=== PATIENT | female | born 1975 | race Caucasian/White ===

== ENCOUNTER 2020-05-30 14:58 | Emergency (ER) | payer MEDICARE, MEDICAID ==
[~2020-05-30] VITALS: Ht 172 cm; Wt 9.7 kg
[~2020-05-30 14:58] MED LIST: ACHD5005 PO; ALPR.25T PO; ALPR.5T PO; ALPR0.25 PO; ALPR0.5T72 PO; ARIP15TA9 PO; ASP325TEC PO; ASP81CT PO; ASPI-1238 PO; ATN25T; ATOR40TA PO; ATOR40TA70 PO; ATOR80TA76 PO; CLON1TAB36 PO; CLOP75TA PO; CLOP75TA28 PO; CLPD75T; DILT120C85 PO; DULO30CA PO; ENLP10T PO; ESCT10T; FAMO20TA5 PO; FAMO20TA73 PO; FAMO40TA39 PO; HYDR-3857 PO; HYDR-700 PO; HYDR1CAP2 PO; HYDR1TAB66 PO; IBUP-15 PO; IBUP-30 PO; IPRA4AER IH; ISOS30TA3 PO; LVT.025T PO; LVT.15T PO; LVT.1T PO; METF-397 PO; METO-333 PO; METO25TA2 PO; MTF500T PO; NITR0.3T6 SL; OMEP-10 PO; PGLT30T PO; PRD10T PO; QUET25TA PO; RESTORIL; SERT100T8 PO; SERT25TA PO; SIMV40TA2 PO; TICA90TA PO; TMZP15C; VALA500T4 PO; VALP250C PO; VALP250S14 PO; VLP250480 PO; WARF6TAB PO; WRF5T PO; ZLP10T PO; ZOLP12.5 PO; ZOLP5TAB7 PO; ZOLP6.252 PO
[2020-05-30] MEDS ORDERED: NS IV 1000 ML 1,000 ML ONE (15:14)
[2020-05-30] MEDS ORDERED: ASPIRIN 81 MG CHEW (CHILDREN'S ASA) PO ONE (15:15)
--- NOTE | 2020-05-30 15:17 | ED Chest Pain ---
General Chief Complaint: Chest Pain Stated Complaint: CHEST PAIN Nursing Triage Note: having chest pain that is similar to an [place] she had in 2019 Nursing Sepsis Screen: No Definite Risk Source: patient Exam Limitations: no limitations (MARGARET HUANG) History of Present Illness Date Seen by Provider: May 30, 2020 Time Seen by Provider: 14:55 Initial Comments Patient presents to ER by EMS from home with chief complaint that just prior to calling the ambulance she was laying in her bed and she started to feel some pressure and pain in the center of her chest radiating towards her left shoulder and down her left arm. She says the pain is now about an 8 out of 10, reminiscent of her previous coronary pain. She had a non-STEMI and April with balloon angioplasty by Dr. Bartlett and after that Dr. Macias did a coronary angiogram demonstrating small vessel nonobstructing disease. She says she was switched to Brilinta which she has been taking religiously as well as she has taken her aspirin 81 mg this morning. She is not out of any of her medications and says she takes them as told. She was also started on Imdur for her ongoing angina. She says she has been taking this. EMS made 3 attempts at an IV unsuccessfully and so did not give her nitroglycerin because her blood pressure was soft 105 systolic. They did not give her any aspirin because she had already taken her aspirin. History of coronary disease, bypass graft, in STEMI one month ago, nitroglycerin intolerance. Hyperlipidemia, diabetes, recent tobaccoism. (MARGARET HUANG) Allergies and Home Medications Allergies Coded Allergies: Penicillins (Verified Allergy, Unknown, 11/05/06) Sulfa (Sulfonamide Antibiotics) (Verified Allergy, Unknown, 11/05/06) naproxen (Verified Allergy, Unknown, HIVES, NAUSEA, 11/05/06) Home Medications Aripiprazole 15 Mg Tablet, 7.5 MG PO DAILY, (Reported) TAKES OF A 15MG TAB Aspirin 81 Mg Tablet., 81 MG PO DAILY Prescribed by: MITCHELL LEBRON on 04/24/20 1014 Atorvastatin Calcium 80 Mg Tablet, 80 MG PO HS Prescribed by: MITCHELL LEBRON on 04/24/20 1231 Hydroxyzine HCl 25 Mg Tablet, 25 MG PO BID PRN for ANXIETY, (Reported) Ibuprofen 200 Mg Tablet, 400 MG PO Q8H PRN for PAIN-MILD (1-4), (Reported) Isosorbide Mononitrate 30 Mg Tab.er.24h, 30 MG PO DAILY Prescribed by: RAINE HERNANDEZ on 05/09/20 0849 Metformin HCl 500 Mg Tablet, 500 MG PO DAILY, (Reported) Metoprolol Tartrate 25 Mg Tablet, 12.5 MG PO DAILY, (Reported) TAKES OF A 25MG TAB Sertraline HCl 100 Mg Tablet, 100 MG PO DAILY, (Reported) Ticagrelor 90 Mg Tablet, 90 MG PO BID Prescribed by: MITCHELL LEBRON on 04/24/20 1014 Zolpidem Tartrate 5 Mg Tablet, 5 MG PO HS PRN for SLEEP, (Reported) Patient Home Medication List Home Medication List Reviewed: Yes (MARGARET HUANG) Review of Systems Review of Systems Constitutional: No chills, No diaphoresis, No fever EENTM: No Blurred Vision, No Double Vision Respiratory: Denies Cough, Denies Shortness of Air Cardiovascular: Denies Chest Pain, Denies Edema Gastrointestinal: Denies Constipated, Denies Diarrhea, Denies Nausea Genitourinary: Denies Discharge, Denies Drainage Musculoskeletal: No back pain, No joint pain Skin: No pruritus, No rash Psychiatric/Neurological: Denies Headache, Denies Numbness, Denies Paresthesia (MARGARET HUANG) All Other Systems Reviewed Negative Unless Noted: Yes (MARGARET HUANG) Past Vshupsn-Hqpoxt-Hseijc Hx Patient Social History Alcohol Use: Denies Use Recreational Drug Use: No Smoking Status: Former Smoker Type Used: Electronic/Vapor Former Smoker, Quit: Apr 22, 2020 2nd Hand Smoke Exposure: Yes Recent Foreign Travel: No Contact w/Someone Who Travel: No Recent Infectious Disease Expo: No Recent Hopitalizations: Yes (HX REACTIVE AIRWAY DISEASE & ON VENT. HEART CATH ) (MARGARET HUANG) Immunizations Up To Date Date of Pneumonia Vaccine: Jun 20, 2013 Date of Influenza Vaccine: Jun 20, 2014 (MARGARET HUANG) Seasonal Allergies Seasonal Allergies: No (MARGARET HUANG) Past Medical History Surgeries: Yes Abdominal, Adenoidectomy, Cardiac, CABG, Coronary Stent, Ear Surgery, Gallbladder, Orthopedic, Tonsillectomy Respiratory: Yes Chronic Bronchitis, COPD Cardiac: Yes (NSTEMI 04/22/20; CABG 2009;MULT STENTS) Coronary Artery Disease, Deep Vein Thrombosis, Heart Attack, High Cholesterol, Hypertension Neurological: Yes Headaches /Migraines, Seizure Disorder Reproductive Disorders: Yes (HX CERVICAL CANCER) Sexually Transmitted Disease: Yes (HERPES) Genitourinary: No Gastrointestinal: Yes Gastroesophageal Reflux, Esophagitis, Hiatal Hernia, Gall Bladder Disease Musculoskeletal: Yes Arthritis Endocrine: Yes Hypothyroidsim, Diabetes, Non-Insulin dep HEENT: Yes (POOR DENTITION) Chronic Ear Infection Hearing Impairment: Hard of Hearing Cancer: Yes Cervical Did You Recieve Any Treatments: Yes What Type of Treatment Did You: Surgical Intervention Psychosocial: Yes Sleep Difficulties, Anxiety, Suicide Attempts, Depression Integumentary: No Blood Disorders: No (MARGARET HUANG) Family Medical History PSH: -CARDIAC CATHS--MULTIPLE STENTS TO RCA AND STENT TO CIRCUMFLEX. LAST CATH 04/23/20 WITH STENT X 1 TO RCA -CABG IN 2009 -FABRICE FUNDOPLICATION (MARGARET HUANG) Physical Exam Vital Signs Vital Signs - First Documented 05/30/20 14:58 Temp 36.4 Pulse 101 Resp 18 B/P (MAP) 123/94 (104) (DORA ROMERO MD) Vital Signs Capillary Refill : Less Than 3 Seconds (MARGARET HUANG) Height, Weight, BMI Height: 5'8.00" Weight: 189lbs. 0.0oz. 85.064500vs; 3.00 BMI Method:Stated General Appearance: No Apparent Distress, Chronically ill HEENT: PERRL/EOMI, Pharynx Normal, Moist Mucous Membranes Neck: Full Range of Motion, Normal Inspection Respiratory: Chest Non Tender, Lungs Clear, Normal Breath Sounds, No Accessory Muscle Use, No Respiratory Distress Cardiovascular: Regular Rate, Rhythm, No Edema, Normal Peripheral Pulses Extremity: Normal Capillary Refill, Normal Inspection, No Calf Tenderness, No Pedal Edema Neurologic/Psychiatric: Alert, Oriented x3, Normal Mood/Affect Skin: Normal Color, Warm/Dry (MARGARET HUANG) Progress/Results/Core Measures Results/Orders Lab Results Laboratory Tests Test 05/30/20 15:00 05/30/20 17:50 Range/Units White Blood Count 10.2 4.3-11.0 10^3/uL Red Blood Count 4.95 3.80-5.11 10^6/uL Hemoglobin 16.2 H 11.5-16.0 g/dL Hematocrit 46 35-52 % Mean Corpuscular Volume 93 80-99 fL Mean Corpuscular Hemoglobin 33 25-34 pg Mean Corpuscular Hemoglobin Concent 35 32-36 g/dL Red Cell Distribution Width 12.5 10.0-14.5 % Platelet Count 302 130-400 10^3/uL Mean Platelet Volume 10.6 9.0-12.2 fL Immature Granulocyte % (Auto) 0 % Neutrophils (%) (Auto) 61 42-75 % Lymphocytes (%) (Auto) 30 12-44 % Monocytes (%) (Auto) 7 0-12 % Eosinophils (%) (Auto) 1 0-10 % Basophils (%) (Auto) 1 0-10 % Neutrophils # (Auto) 6.3 1.8-7.8 10^3/uL Lymphocytes # (Auto) 3.1 1.0-4.0 10^3/uL Monocytes # (Auto) 0.7 0.0-1.0 10^3/uL Eosinophils # (Auto) 0.1 0.0-0.3 10^3/uL Basophils # (Auto) 0.1 0.0-0.1 10^3/uL Immature Granulocyte # (Auto) 0.0 0.0-0.1 10^3/uL Prothrombin Time 12.6 12.2-14.7 SEC INR Comment 0.9 0.8-1.4 Activated Partial Thromboplast Time 33 24-35 SEC Sodium Level 137 135-145 MMOL/L Potassium Level 3.4 L 3.6-5.0 MMOL/L Chloride Level 102 98-107 MMOL/L Carbon Dioxide Level 21 21-32 MMOL/L Anion Gap 14 5-14 MMOL/L Blood Urea Nitrogen 12 7-18 MG/DL Creatinine 1.05 0.60-1.30 MG/DL Estimat Glomerular Filtration Rate 56 BUN/Creatinine Ratio 11 Glucose Level 114 H 70-105 MG/DL Calcium Level 9.5 8.5-10.1 MG/DL Corrected Calcium 9.1 8.5-10.1 MG/DL Magnesium Level 1.6 1.6-2.4 MG/DL Total Bilirubin 1.5 H 0.1-1.0 MG/DL Aspartate Amino Transf (AST/SGOT) 24 5-34 U/L Alanine Aminotransferase (ALT/SGPT) 29 0-55 U/L Alkaline Phosphatase 135 40-136 U/L Myoglobin 37.5 10.0-92.0 NG/ML Troponin I < 0.028 < 0.028 <0.028 NG/ML B-Type Natriuretic Peptide 43.2 <100.0 PG/ML Total Protein 7.8 6.4-8.2 GM/DL Albumin 4.5 3.2-4.5 GM/DL (DORA ROMERO MD) Medications Given in ED Current Medications Medications Dose Ordered Sig/Sara Route Start Time Stop Time Status Last Admin Dose Admin Aspirin 243 mg ONCE ONCE PO 05/30/20 15:15 05/30/20 15:16 DC 05/30/20 15:23 243 MG Nitroglycerin 0.4 mg UD PRN SL 05/30/20 15:15 05/30/20 15:23 0.4 MG (DORA ROMERO MD) Vital Signs/I&O 05/30/20 14:58 Temp 36.4 Pulse 101 Resp 18 B/P (MAP) 123/94 (104) (DORA ROMERO MD) Blood Pressure Mean: 104 Progress Progress Note #1: Time: 15:22 Progress Note She has maintained a decent blood pressure 120-135 systolic since she's been here so were going to give her a tablet of nitroglycerin. Suspect she is having some angina. She does not have nitroglycerin at home. If it does not go away then we can talk to cardiology about unstable angina. We'll get a cardiac workup. We'll give her 243 mg of aspirin to chew and swallow. Progress Note #2: Time: 15:53 Progress Note After a dose of nitroglycerin the patient's blood pressure did transiently to about 105 systolic and she complains that her pain feels different now. She does not have any ST changes on the monitor so we ordered a second EKG which shows similar leads 1, 1 block depression as well as in the anterior leads V3 and V4 having about one half to one block depression. We are not going give her any more nitroglycerin. We can trial morphine if necessary. (MARGARET HUANG) Progress Note : Time: 18:34 Progress Note Repeat dose of morphine was not administered as the first dose dropped her blood pressure. Repeat troponin at greater than 2 hours was obtained and was negative. Per Dr. Huang's discussion with Dr. Macias, patient was discharged to outpatient follow-up. (DORA ROMERO MD) Initial ECG Impression Date: May 30, 2020 Initial ECG Impression Time: 14:58 Initial ECG Rate: 100 Initial ECG Rhythm: Normal Sinus Initial ECG Intervals: Normal Initial ECG Impression: Normal, Nonspecific Changes Initial ECG Comparisson: No Previous ECG Available Comment No clinically relevant ST elevation or depression. Normal sinus rhythm/tachycardia. Approximately 1 box of depression in lead 1 as well as leads V3 and V4. Nondiagnostic. These findings are not conserved from previous EKG May 07, 2020, 3 weeks ago. (MARGARET HUANG) Diagnostic Imaging Diagonstic Imaging: Xray Plain Films/CT/US/NM/MRI: chest (1v) Comments Technically proficient study without acute cardiopulmonary processes. Reviewed: Reviewed by Me (MARGARET HUANG) Consults : Consulting Physician: ELIJAH MACIAS MD Consults Notes Discussed the case with Dr. Macias at 1600 and he is familiar with the patient. We discussed the recent cardiac catheterizations and we feel that this is her angina. He recommends that we rule her out in the ER with a 3-4 hour rule out. We plan to do a 4 hour rule out from the time her pain started at 1400. We will obtain troponin at 1800 and if this is still negative we will allow her to go home. We are going to give her some morphine per his request. (MARGARET HUANG) Transfer of Care Time: 18:10 Care transferred to: Dr. Tena (MARGARET HUANG) Departure Impression Primary Impression: Angina pectoris Disposition: HOME, SELF-CARE Condition: Stable Departure-Patient Inst. Decision time for Depature: 18:29 (DORA ROMERO MD) Referrals: EDWAR LOBO DO (PCP/Family) Primary Care Physician Patient Instructions: Chest Pain (DC) Add. Discharge Instructions: Continue your medications as previously prescribed. Contact Dr. Robles's office tomorrow morning. Return to care if you have worsening symptoms. All discharge instructions reviewed with patient and/or family. Voiced understanding. Copy Copies To 1: JIMENA ROBLES MD FACP FACC CCDS MARGARET HUANG May 30, 2020 15:17 DORA ROMERO MD May 30, 2020 18:30
[2020-05-30] MEDS ORDERED: NS IV 1000 ML 1,000 ML IV SCH (15:18)
[2020-05-30 15:23] LABS: ALBUMIN 4.5 GM/DL (3.2-4.5); POTASSIUM 3.4 MMOL/L (3.6-5.0)
[2020-05-30] MEDS: NITROGLYCERIN 0.4 MG SL TABS BTL 25'S SL PRN ×2 (15:23→17:40)
[2020-05-30 15:24] LABS: CALCIUM 9.5 MG/DL (8.5-10.1)
[2020-05-30 15:25] LABS: INR 0.9 (0.8-1.4); PROTHROMBIN TIME PATIENT 12.6 SEC (12.2-14.7)
[2020-05-30 15:26] LABS: TOTAL PROTEIN 7.8 GM/DL (6.4-8.2)
[2020-05-30 15:27] LABS: BILIRUBIN,TOTAL 1.5 MG/DL (0.1-1.0)
[2020-05-30 15:29] LABS: CREATININE SERUM 1.05 MG/DL (0.60-1.30)
[2020-05-30 15:32] LABS: BASOPHILS # (AUTO) 0.1 10^3/uL (0.0-0.1); BASOPHILS % (AUTO) 1 % (0-10); EOSINOPHILS # (AUTO) 0.1 10^3/uL (0.0-0.3); EOSINOPHILS % (AUTO) 1 % (0-10); HEMATOCRIT 46 % (35-52); HEMOGLOBIN 16.2 g/dL (11.5-16.0); LYMPHOCYTES # (AUTO) 3.1 10^3/uL (1.0-4.0); LYMPHOCYTES % (AUTO) 30 % (12-44); MAGNESIUM 1.6 MG/DL (1.6-2.4); MEAN CORPUSCULAR HEMOGLOBIN 33 pg (25-34); MEAN CORPUSCULAR HGB CONC 35 g/dL (32-36); MEAN CORPUSCULAR VOLUME 93 fL (80-99); MEAN PLATELET VOLUME 10.6 fL (9.0-12.2); MONOCYTES # (AUTO) 0.7 10^3/uL (0.0-1.0); MONOCYTES % (AUTO) 7 % (0-12); NEUTROPHILS # (AUTO) 6.3 10^3/uL (1.8-7.8); NEUTROPHILS % (AUTO) 61 % (42-75); PLATELET COUNT 302 10^3/uL (130-400); WHITE BLOOD COUNT 10.2 10^3/uL (4.3-11.0)
[2020-05-30] MEDS ORDERED: morphine INJ 10 MG/ML 1ML (SYR OR VIAL) IVP STA ×2 (16:06→17:35)
--- NOTE | 2020-05-30 16:42 | Diagnostic Imaging Report ---
EXAMINATION: Chest 1 view. HISTORY: Chest pain. COMPARISON: Chest radiograph 05/07/2020. FINDINGS: Heart size and pulmonary vasculature are normal. Surgical changes from median sternotomy and CABG. The lungs are clear without consolidation, pleural effusion, or pneumothorax. The osseous structures are intact. IMPRESSION: No acute radiographic abnormality in the chest. Dictated by: Dictated on workstation # [id number]
[2020-05-30 18:39] VITALS: BP 109/76
== END 2020-05-30 18:40 | disposition home or self-care (01) ==
LOC: EDUNIT# 14:58 → ER 14:59
DX: I20.9 Angina pectoris, unspecified (principal); F41.9 Anxiety disorder, unspecified; E78.00 Pure hypercholesterolemia, unspecified; I10 Essential (primary) hypertension; F32.9 Major depressive disorder, single episode, unspecified; I25.2 Old myocardial infarction; E11.9 Type 2 diabetes mellitus without complications; I21.4 Non-ST elevation (NSTEMI) myocardial infarction; Z95.1 Presence of aortocoronary bypass graft; Z95.5 Presence of coronary angioplasty implant and graft; Z85.41 Personal history of malignant neoplasm of cervix uteri; Z87.891 Personal history of nicotine dependence; Z88.2 Allergy status to sulfonamides; Z88.8 Allergy status to other drugs, medicaments and biological substances; Z88.0 Allergy status to penicillin; Z79.82 Long term (current) use of aspirin; Z79.84 Long term (current) use of oral hypoglycemic drugs
CPT/HCPCS: 36415; 71045; 80053; 83735; 83874; 83880; 84484; 85025; 85610; 85730; 93005; 93041

== ENCOUNTER 2020-06-01 12:03 | Emergency (ER) | payer MEDICARE, MEDICAID ==
[~2020-06-01] VITALS: Ht 172.7 cm; Wt 97.5 kg
--- NOTE | 2020-06-01 12:22 | ED Chest Pain ---
General Stated Complaint: CHEST PAIN Source: patient Exam Limitations: no limitations History of Present Illness Date Seen by Provider: Jun 01, 2020 Time Seen by Provider: 12:19 Initial Comments To ER per EMS from home with reports of sharp central chest pain worsened by movement and deep breathing onset this morning. She took one nitroglycerin at home prior to EMS arrival but it did not help her pain. She was also started on Lasix 8 days ago. EMS gave aspirin, they did note some orthostatic hypotension, about 105 systolic while supine and 92 systolic. IV fluids were started. She was supposed to see Dr. Aguilar yesterday but states that she called and "no one answered". Timing/Duration: 4-6 hours Severity/Quality: moderate Location: central Radiation: no radiation Activities at Onset: none ASA po INJECTION OPERATOR: No NTG SL INJECTION OPERATOR: No Allergies and Home Medications Allergies Coded Allergies: Penicillins (Verified Allergy, Unknown, 11/05/06) Sulfa (Sulfonamide Antibiotics) (Verified Allergy, Unknown, 11/05/06) naproxen (Verified Allergy, Unknown, HIVES, NAUSEA--can take ibuprofen, 06/01/20) Home Medications Aripiprazole 15 Mg Tablet, 7.5 MG PO DAILY, (Reported) TAKES OF A 15MG TAB Aspirin 81 Mg Tablet.dr, 81 MG PO DAILY Prescribed by: MITCHELL LEBRON on 04/24/20 1014 Atorvastatin Calcium 80 Mg Tablet, 80 MG PO HS Prescribed by: MITCHELL LEBRON on 04/24/20 1231 Hydroxyzine HCl 25 Mg Tablet, 25 MG PO BID PRN for ANXIETY, (Reported) Ibuprofen 200 Mg Tablet, 400 MG PO Q8H PRN for PAIN-MILD (1-4), (Reported) Isosorbide Mononitrate 30 Mg Tab.er.24h, 30 MG PO DAILY Prescribed by: RAINE HERNADNEZ on 05/09/20 0849 Metformin HCl 500 Mg Tablet, 500 MG PO DAILY, (Reported) Metoprolol Tartrate 25 Mg Tablet, 12.5 MG PO DAILY, (Reported) TAKES OF A 25MG TAB Sertraline HCl 100 Mg Tablet, 100 MG PO DAILY, (Reported) Ticagrelor 90 Mg Tablet, 90 MG PO BID Prescribed by: MITCHELL LEBRON on 04/24/20 1014 Zolpidem Tartrate 5 Mg Tablet, 5 MG PO HS PRN for SLEEP, (Reported) Patient Home Medication List Home Medication List Reviewed: Yes Review of Systems Review of Systems Constitutional: see HPI, chills EENTM: No Symptoms Reported Respiratory: See HPI; Denies Cough, Denies Shortness of Air, Denies SOA With Exertion, Denies SOA at Rest Cardiovascular: See HPI, Chest Pain; Denies Palpitations, Denies Syncope Gastrointestinal: No Symptoms Reported Genitourinary: No Symptoms Reported Musculoskeletal: no symptoms reported Skin: no symptoms reported Psychiatric/Neurological: No Symptoms Reported Endocrine: No Symptoms Reported Past Hecxavm-Vbqytc-Adlxzf Hx Patient Social History Type Used: Electronic/Vapor Former Smoker, Quit: Apr 22, 2020 2nd Hand Smoke Exposure: Yes Recent Foreign Travel: No Contact w/Someone Who Travel: No Recent Hopitalizations: Yes (HX REACTIVE AIRWAY DISEASE & ON VENT. HEART CATH ) Immunizations Up To Date Date of Pneumonia Vaccine: Jun 20, 2013 Date of Influenza Vaccine: Jun 20, 2014 Seasonal Allergies Seasonal Allergies: No Past Medical History Surgeries: Yes Abdominal, Adenoidectomy, Cardiac, CABG, Coronary Stent, Ear Surgery, Gallbladder, Orthopedic, Tonsillectomy Respiratory: Yes Chronic Bronchitis, COPD Cardiac: Yes (NSTEMI 04/22/20; CABG 2009;MULT STENTS) Coronary Artery Disease, Deep Vein Thrombosis, Heart Attack, High Cholesterol, Hypertension Neurological: Yes Headaches /Migraines, Seizure Disorder Reproductive Disorders: Yes (HX CERVICAL CANCER) Sexually Transmitted Disease: Yes (HERPES) Genitourinary: No Gastrointestinal: Yes Gastroesophageal Reflux, Esophagitis, Hiatal Hernia, Gall Bladder Disease Musculoskeletal: Yes Arthritis Endocrine: Yes Hypothyroidsim, Diabetes, Non-Insulin dep HEENT: Yes (POOR DENTITION) Chronic Ear Infection Hearing Impairment: Hard of Hearing Cancer: Yes Cervical Did You Recieve Any Treatments: Yes What Type of Treatment Did You: Surgical Intervention Psychosocial: Yes Sleep Difficulties, Anxiety, Suicide Attempts, Depression Integumentary: No Blood Disorders: No Family Medical History PSH: -CARDIAC CATHS--MULTIPLE STENTS TO RCA AND STENT TO CIRCUMFLEX. LAST CATH 04/23/20 WITH STENT X 1 TO RCA -CABG IN 2009 -FABRICE FUNDOPLICATION Physical Exam Vital Signs Vital Signs - First Documented Capillary Refill : Height, Weight, BMI Height: 5'8.00" Weight: 189lbs. 0.0oz. 85.470027pn; 3.00 BMI Method:Stated General Appearance: No Apparent Distress, WD/WN Neck: Full Range of Motion, Normal Inspection Respiratory: Lungs Clear, Normal Breath Sounds, No Accessory Muscle Use, No Respiratory Distress Cardiovascular: Regular Rate, Rhythm, Normal Peripheral Pulses Gastrointestinal: Normal Bowel Sounds, Non Tender, Soft Neurologic/Psychiatric: Alert, Oriented x3 Skin: Normal Color, Warm/Dry Progress/Results/Core Measures Results/Orders Lab Results Laboratory Tests Test 06/01/20 12:29 06/01/20 12:40 06/01/20 14:38 Range/Units White Blood Count 6.1 4.3-11.0 10^3/uL Red Blood Count 4.42 3.80-5.11 10^6/uL Hemoglobin 14.2 11.5-16.0 g/dL Hematocrit 42 35-52 % Mean Corpuscular Volume 94 80-99 fL Mean Corpuscular Hemoglobin 32 25-34 pg Mean Corpuscular Hemoglobin Concent 34 32-36 g/dL Red Cell Distribution Width 12.5 10.0-14.5 % Platelet Count 259 130-400 10^3/uL Mean Platelet Volume 10.5 9.0-12.2 fL Immature Granulocyte % (Auto) 0 % Neutrophils (%) (Auto) 47 42-75 % Lymphocytes (%) (Auto) 41 12-44 % Monocytes (%) (Auto) 8 0-12 % Eosinophils (%) (Auto) 2 0-10 % Basophils (%) (Auto) 1 0-10 % Neutrophils # (Auto) 2.8 1.8-7.8 10^3/uL Lymphocytes # (Auto) 2.5 1.0-4.0 10^3/uL Monocytes # (Auto) 0.5 0.0-1.0 10^3/uL Eosinophils # (Auto) 0.1 0.0-0.3 10^3/uL Basophils # (Auto) 0.1 0.0-0.1 10^3/uL Immature Granulocyte # (Auto) 0.0 0.0-0.1 10^3/uL Prothrombin Time 13.1 12.2-14.7 SEC INR Comment 1.0 0.8-1.4 Activated Partial Thromboplast Time 31 24-35 SEC D-Dimer 0.88 H 0.00-0.49 UG/ML Sodium Level 138 135-145 MMOL/L Potassium Level 3.4 L 3.6-5.0 MMOL/L Chloride Level 107 98-107 MMOL/L Carbon Dioxide Level 21 21-32 MMOL/L Anion Gap 10 5-14 MMOL/L Blood Urea Nitrogen 11 7-18 MG/DL Creatinine 0.77 0.60-1.30 MG/DL Estimat Glomerular Filtration Rate > 60 BUN/Creatinine Ratio 14 Glucose Level 104 70-105 MG/DL Calcium Level 8.4 L 8.5-10.1 MG/DL Corrected Calcium 8.5 8.5-10.1 MG/DL Magnesium Level 1.5 L 1.6-2.4 MG/DL Total Bilirubin 1.4 H 0.1-1.0 MG/DL Aspartate Amino Transf (AST/SGOT) 21 5-34 U/L Alanine Aminotransferase (ALT/SGPT) 21 0-55 U/L Alkaline Phosphatase 106 40-136 U/L Myoglobin 28.1 10.0-92.0 NG/ML Troponin I < 0.028 < 0.028 <0.028 NG/ML B-Type Natriuretic Peptide 59.0 <100.0 PG/ML Total Protein 6.8 6.4-8.2 GM/DL Albumin 3.9 3.2-4.5 GM/DL Urine Color YELLOW Urine Clarity CLEAR Urine pH 6.5 5-9 Urine Specific [place] <=1.005 1.016-1.022 Urine Protein NEGATIVE NEGATIVE Urine Glucose (UA) NEGATIVE NEGATIVE Urine Ketones NEGATIVE NEGATIVE Urine Nitrite NEGATIVE NEGATIVE Urine Bilirubin NEGATIVE NEGATIVE Urine Urobilinogen 0.2 < = 1.0 MG/DL Urine Leukocyte Esterase NEGATIVE NEGATIVE Urine RBC (Auto) NEGATIVE NEGATIVE Urine RBC NONE /HPF Urine WBC NONE /HPF Urine Squamous Epithelial Cells 2-5 /HPF Urine Crystals NONE /LPF Urine Bacteria NEGATIVE /HPF Urine Casts NONE /LPF Urine Mucus NEGATIVE /LPF Urine Culture Indicated NO Urine Opiates Screen NEGATIVE NEGATIVE Urine Oxycodone Screen NEGATIVE NEGATIVE Urine Methadone Screen NEGATIVE NEGATIVE Urine Propoxyphene Screen NEGATIVE NEGATIVE Urine Barbiturates Screen NEGATIVE NEGATIVE Ur Tricyclic Antidepressants Screen NEGATIVE NEGATIVE Urine Phencyclidine Screen NEGATIVE NEGATIVE Urine Amphetamines Screen NEGATIVE NEGATIVE Urine Methamphetamines Screen NEGATIVE NEGATIVE Urine Benzodiazepines Screen NEGATIVE NEGATIVE Urine Cocaine Screen NEGATIVE NEGATIVE Urine Cannabinoids Screen NEGATIVE NEGATIVE My Orders Orders - TAMRA CABALLERO DINKEY ENGINE FIRER Cbc With Automated Diff (06/01/20 12:08) Magnesium (06/01/20 12:08) Chest 1 View, Ap/Pa Only (06/01/20 12:08) Ekg Tracing (06/01/20 12:08) Comprehensive Metabolic Panel (06/01/20 12:08) Myoglobin Serum (06/01/20 12:08) Protime With Inr (06/01/20 12:08) Partial Thromboplastin Time (06/01/20 12:08) O2 (06/01/20 12:08) Monitor-Rhythm Ecg Trace Only (06/01/20 12:08) Lipid Panel (06/02/20 06:00) Ed Iv/Invasive Line Start (06/01/20 12:08) BNP (06/01/20 12:08) Fibrin Degradation Products (06/01/20 12:08) Troponin I (06/01/20 12:08) Ketorolac Injection (Toradol Injection) (06/01/20 12:30) Ua Culture If Indicated (06/01/20 12:22) Drug Screen Stat (Urine) (06/01/20 12:22) Hydrocodone/Apap 5/325 Tablet (Lortab 5 (06/01/20 13:00) Troponin I (06/01/20 14:30) Ondansetron Oral Dissolve Tab (Zofran (06/01/20 14:15) Medications Given in ED Current Medications Medications Dose Ordered Sig/Sara Route Start Time Stop Time Status Last Admin Dose Admin Acetaminophen/ Hydrocodone Bitart 1 tab ONCE ONCE PO 06/01/20 13:00 06/01/20 13:01 DC 06/01/20 13:19 1 TAB Ketorolac Tromethamine 15 mg ONCE ONCE IVP 06/01/20 12:30 06/01/20 12:31 DC 06/01/20 12:27 15 MG Ondansetron HCl 8 mg ONCE ONCE PO 06/01/20 14:15 06/01/20 14:16 DC 06/01/20 14:29 8 MG Vital Signs/I&O 06/01/20 06/01/20 12:08 12:08 Temp 35.7 Pulse 85 Resp 25 B/P (MAP) 129/95 (106) Pulse Ox 99 O2 Delivery Room Air Room Air Departure Communication (Admissions) 9121-feeling much better after the hydrocodone. Will discharge to home. Impression Primary Impression: Chest pain Qualified Codes: R07.9 - Chest pain, unspecified Disposition: HOME, SELF-CARE Condition: Stable Departure-Patient Inst. Decision time for Depature: 15:19 Referrals: EDWAR LOBO DO (PCP/Family) Primary Care Physician Patient Instructions: Chest Pain (DC) Add. Discharge Instructions: 1. Call your fabricator foam rubber today to make an appointment to be seen later this week for recheck. Return to ER for any worsening symptoms. TAMRA CABALLERO DINKEY ENGINE FIRER Jun 01, 2020 12:22
[2020-06-01] MEDS ORDERED: KETOROLAC 30 MG/ML VIAL IVP ONE (12:30)
[2020-06-01 12:43] LABS: BASOPHILS # (AUTO) 0.1 10^3/uL (0.0-0.1); BASOPHILS % (AUTO) 1 % (0-10); EOSINOPHILS # (AUTO) 0.1 10^3/uL (0.0-0.3); EOSINOPHILS % (AUTO) 2 % (0-10); HEMATOCRIT 42 % (35-52); HEMOGLOBIN 14.2 g/dL (11.5-16.0); LYMPHOCYTES # (AUTO) 2.5 10^3/uL (1.0-4.0); LYMPHOCYTES % (AUTO) 41 % (12-44); MEAN CORPUSCULAR HEMOGLOBIN 32 pg (25-34); MEAN CORPUSCULAR HGB CONC 34 g/dL (32-36); MEAN CORPUSCULAR VOLUME 94 fL (80-99); MEAN PLATELET VOLUME 10.5 fL (9.0-12.2); MONOCYTES # (AUTO) 0.5 10^3/uL (0.0-1.0); MONOCYTES % (AUTO) 8 % (0-12); NEUTROPHILS # (AUTO) 2.8 10^3/uL (1.8-7.8); NEUTROPHILS % (AUTO) 47 % (42-75); PLATELET COUNT 259 10^3/uL (130-400); WHITE BLOOD COUNT 6.1 10^3/uL (4.3-11.0)
[2020-06-01 12:45] LABS: ALBUMIN 3.9 GM/DL (3.2-4.5); CHLORIDE 107 MMOL/L (98-107); POTASSIUM 3.4 MMOL/L (3.6-5.0)
[2020-06-01 12:46] LABS: SODIUM 138 MMOL/L (135-145)
[2020-06-01 12:47] LABS: CALCIUM 8.4 MG/DL (8.5-10.1)
[2020-06-01 12:48] LABS: GLUCOSE 104 MG/DL (70-105); TOTAL PROTEIN 6.8 GM/DL (6.4-8.2)
[2020-06-01 12:49] LABS: CARBON DIOXIDE 21 MMOL/L (21-32)
[2020-06-01 12:50] LABS: BILIRUBIN,URINE NEGATIVE (NEGATIVE); CLARITY,URINE CLEAR; COLOR,URINE YELLOW; GLUCOSE, URINE (UA) NEGATIVE (NEGATIVE); KETONES,URINE NEGATIVE (NEGATIVE); LEUKOCYTE ESTERASE ,URINE NEGATIVE (NEGATIVE); NITRITE,URINE NEGATIVE (NEGATIVE); PH,URINE 6.5 (5-9); PROTEIN,URINE NEGATIVE (NEGATIVE)
[2020-06-01 12:50] LABS: BILIRUBIN,TOTAL 1.4 MG/DL (0.1-1.0)
[2020-06-01 12:51] LABS: ALKALINE PHOSPHATASE 106 U/L (40-136); CREATININE SERUM 0.77 MG/DL (0.60-1.30); GFR ESTIMATED > 60
[2020-06-01 12:52] LABS: BUN/CREATININE RATIO 14
[2020-06-01 12:54] LABS: ALANINE AMINOTRANSFERASE 21 U/L (0-55); MAGNESIUM 1.5 MG/DL (1.6-2.4); PROTHROMBIN TIME PATIENT 13.1 SEC (12.2-14.7)
[2020-06-01 13:00] LABS: BACTERIA,URINE NEGATIVE /HPF
[2020-06-01] MEDS ORDERED: HYDROcodone/APAP 5 MG/325 MG (LORTAB) TAB PO ONE (13:00)
--- NOTE | 2020-06-01 13:08 | Diagnostic Imaging Report ---
INDICATION: Chest pain. COMPARISON: 05/30/2020 TECHNIQUE: Single radiograph of chest dated 06/01/2020. FINDINGS: Post surgical changes of a CABG. The cardiac silhouette is within normal limits in size. No significant pulmonary vascular congestion. The lungs are clear. No pleural effusion. No pneumothorax. No acute osseous abnormality. IMPRESSION: Stable examination demonstrating postsurgical changes without acute cardiopulmonary abnormality. Dictated by: Dictated on workstation # [id number]
[2020-06-01 13:11] LABS: AMPHETAMINE SCREEN, URINE NEGATIVE (NEGATIVE); BARBITURATE SCREEN URINE NEGATIVE (NEGATIVE); BENZODIAZEPINES SCREEN URINE NEGATIVE (NEGATIVE); CANNABINOID SCREEN, URINE NEGATIVE (NEGATIVE); COCAINE SCREEN URINE NEGATIVE (NEGATIVE); METHADONE STAT NEGATIVE (NEGATIVE); METHAMPHETAMINE SCREEN URINE S NEGATIVE (NEGATIVE); OPIATE SCREEN URINE NEGATIVE (NEGATIVE); OXYCODONE STAT NEGATIVE (NEGATIVE); PROPOXYPHENE STAT NEGATIVE (NEGATIVE); TRICYCLIC ANTIDEPRESSANTS SCRE NEGATIVE (NEGATIVE)
[2020-06-01] MEDS ORDERED: ONDANSETRON 4 MG (ZOFRAN) ORAL DISSOLVE TAB PO ONE (14:15)
[2020-06-01] MEDS ORDERED: HYDR-3870 PO (15:20)
[2020-06-01 15:32] VITALS: BP 129/79
== END 2020-06-01 15:36 | disposition home or self-care (01) ==
LOC: EDUNIT# 12:03 → ER 12:06
DX: R07.9 Chest pain, unspecified (principal); I25.2 Old myocardial infarction; F41.9 Anxiety disorder, unspecified; F32.9 Major depressive disorder, single episode, unspecified; I10 Essential (primary) hypertension; E11.9 Type 2 diabetes mellitus without complications; Z95.5 Presence of coronary angioplasty implant and graft; Z95.1 Presence of aortocoronary bypass graft; Z85.41 Personal history of malignant neoplasm of cervix uteri; Z87.891 Personal history of nicotine dependence; Z79.84 Long term (current) use of oral hypoglycemic drugs; Z88.0 Allergy status to penicillin; Z88.2 Allergy status to sulfonamides; Z88.8 Allergy status to other drugs, medicaments and biological substances; Z79.82 Long term (current) use of aspirin
CPT/HCPCS: 36415; 71045; 80053; 80306; 81000; 83735; 83874; 83880; 84484; 85025; 85379; 85610; 85730; 93005; 93041

== ENCOUNTER 2020-06-12 13:35 | Emergency (ER) | payer MEDICARE, MEDICAID ==
[~2020-06-12] VITALS: Ht 172.7 cm; Wt 97.5 kg
[~2020-06-12 13:35] MED LIST changes: +HYDR-3870 PO
--- NOTE | 2020-06-12 13:51 | ED Cardiac General ---
History of Present Illness General Chief Complaint: Chest Pain Stated Complaint: CHEST PAIN History of Present Illness Date Seen by Provider: Jun 12, 2020 Time Seen by Provider: 13:51 Initial Comments This is a 45-year-old female who presents to the ER via [facility] with complaints of mid chest pain that radiates into her left arm that started around 1030 this morning. She was sitting at the kitchen table playing games on her phone when pain started. States she has had this same pain when she had her [place] in April. She is currently out of her Imdur, and has been since yesterday. Describes as constant sharp pain and rates 7/10. She took one Nitro tablet prior to EMS arrival and received a second nitro per EMS. States neither reduced her chest pain. Additionally she reports nausea without emesis. Denies fevers, chills, cough, shortness of breath, diarrhea, abdominal pain. Severity: moderate Location: central Activities at Onset: none Allergies and Home Medications Allergies Coded Allergies: Penicillins (Verified Allergy, Unknown, 11/05/06) Sulfa (Sulfonamide Antibiotics) (Verified Allergy, Unknown, 11/05/06) naproxen (Verified Allergy, Unknown, HIVES, NAUSEA--can take ibuprofen, 06/01/20) Home Medications Aripiprazole 15 Mg Tablet, 7.5 MG PO DAILY, (Reported) TAKES OF A 15MG TAB Aspirin 81 Mg Tablet.dr, 81 MG PO DAILY Prescribed by: MITCHELL LEBRON on 04/24/20 1014 Atorvastatin Calcium 80 Mg Tablet, 80 MG PO HS Prescribed by: MITCHELL LEBRON on 04/24/20 1231 Hydrocodone/Acetaminophen 1 Each Tablet, 1 EACH PO Q4-6HR PRN for PAIN-MODERATE Prescribed by: TAMRA CABALLERO on 06/01/20 1520 Hydroxyzine HCl 25 Mg Tablet, 25 MG PO BID PRN for ANXIETY, (Reported) Ibuprofen 200 Mg Tablet, 400 MG PO Q8H PRN for PAIN-MILD (1-4), (Reported) Isosorbide Mononitrate 30 Mg Tab.er.24h, 30 MG PO DAILY Prescribed by: RAINE HERNANDEZ on 05/09/20 0849 Metformin HCl 500 Mg Tablet, 500 MG PO DAILY, (Reported) Metoprolol Tartrate 25 Mg Tablet, 12.5 MG PO DAILY, (Reported) TAKES OF A 25MG TAB Sertraline HCl 100 Mg Tablet, 100 MG PO DAILY, (Reported) Ticagrelor 90 Mg Tablet, 90 MG PO BID Prescribed by: MITCHELL LEBRON on 04/24/20 1014 Zolpidem Tartrate 5 Mg Tablet, 5 MG PO HS PRN for SLEEP, (Reported) Patient Home Medication List Home Medication List Reviewed: Yes Review of Systems Review of Systems Constitutional: see HPI EENTM: See HPI Respiratory: See HPI Cardiovascular: See HPI Gastrointestinal: See HPI Genitourinary: See HPI Musculoskeletal: see HPI Skin: see HPI Psychiatric/Neurological: See HPI Endocrine: See HPI Hematologic/Lymphatic: See HPI Past Tjduclj-Ocindn-Xgiwfv Hx Patient Social History Type Used: Electronic/Vapor Former Smoker, Quit: Apr 22, 2020 2nd Hand Smoke Exposure: Yes Recent Hopitalizations: Yes (cardiac stent) Immunizations Up To Date Date of Pneumonia Vaccine: Jun 20, 2013 Date of Influenza Vaccine: Jun 20, 2014 Seasonal Allergies Seasonal Allergies: No Past Medical History Surgeries: Yes Abdominal, Adenoidectomy, Cardiac, CABG, Coronary Stent, Ear Surgery, Gallbladder, Orthopedic, Tonsillectomy Respiratory: Yes Chronic Bronchitis, COPD Cardiac: Yes (NSTEMI 04/22/20; CABG 2009;MULT STENTS) Coronary Artery Disease, Deep Vein Thrombosis, Heart Attack, High Cholesterol, Hypertension Neurological: Yes Headaches /Migraines, Seizure Disorder Reproductive Disorders: Yes (HX CERVICAL CANCER) Sexually Transmitted Disease: Yes (HERPES) Genitourinary: No Gastrointestinal: Yes Gastroesophageal Reflux, Esophagitis, Hiatal Hernia, Gall Bladder Disease Musculoskeletal: Yes Arthritis Endocrine: Yes Hypothyroidsim, Diabetes, Non-Insulin dep HEENT: Yes (POOR DENTITION) Chronic Ear Infection Hearing Impairment: Hard of Hearing Cancer: Yes Cervical Did You Recieve Any Treatments: Yes What Type of Treatment Did You: Surgical Intervention Psychosocial: Yes Sleep Difficulties, Anxiety, Suicide Attempts, Depression Integumentary: No Blood Disorders: No Family Medical History PSH: -CARDIAC CATHS--MULTIPLE STENTS TO RCA AND STENT TO CIRCUMFLEX. LAST CATH 04/23/20 WITH STENT X 1 TO RCA -CABG IN 2009 -FABRICE FUNDOPLICATION Physical Exam Vital Signs Vital Signs - First Documented 06/12/20 13:35 Temp 36.7 Pulse 86 Resp 20 B/P (MAP) 107/63 (78) Pulse Ox 97 O2 Delivery Room Air Capillary Refill : Height, Weight, BMI Height: 5'8.00" Weight: 189lbs. 0.0oz. 85.614062ze; 32.00 BMI Method:Stated General Appearance: No Apparent Distress, WD/WN HEENT: PERRL/EOMI, Normal ENT Inspection, Pharynx Normal Neck: Full Range of Motion, Normal Inspection, Non Tender Respiratory: Chest Non Tender (to palpation ), Lungs Clear, Normal Breath Sounds, No Accessory Muscle Use, No Respiratory Distress Cardiovascular: Regular Rate, Rhythm, No Murmur, Normal Peripheral Pulses Gastrointestinal: Non Tender, Soft Neurologic/Psychiatric: Alert, Oriented x3, No Motor/Sensory Deficits, Normal Mood/Affect Skin: Normal Color, Warm/Dry Progress/Results/Core Measures Results/Orders Lab Results Laboratory Tests Test 06/12/20 13:50 06/12/20 16:36 Range/Units White Blood Count 6.6 4.3-11.0 10^3/uL Red Blood Count 4.70 3.80-5.11 10^6/uL Hemoglobin 15.2 11.5-16.0 g/dL Hematocrit 44 35-52 % Mean Corpuscular Volume 94 80-99 fL Mean Corpuscular Hemoglobin 32 25-34 pg Mean Corpuscular Hemoglobin Concent 35 32-36 g/dL Red Cell Distribution Width 12.7 10.0-14.5 % Platelet Count 293 130-400 10^3/uL Mean Platelet Volume 10.5 9.0-12.2 fL Immature Granulocyte % (Auto) 0 % Neutrophils (%) (Auto) 51 42-75 % Lymphocytes (%) (Auto) 39 12-44 % Monocytes (%) (Auto) 7 0-12 % Eosinophils (%) (Auto) 2 0-10 % Basophils (%) (Auto) 1 0-10 % Neutrophils # (Auto) 3.4 1.8-7.8 10^3/uL Lymphocytes # (Auto) 2.5 1.0-4.0 10^3/uL Monocytes # (Auto) 0.5 0.0-1.0 10^3/uL Eosinophils # (Auto) 0.2 0.0-0.3 10^3/uL Basophils # (Auto) 0.0 0.0-0.1 10^3/uL Immature Granulocyte # (Auto) 0.0 0.0-0.1 10^3/uL Prothrombin Time 12.8 12.2-14.7 SEC INR Comment 0.9 0.8-1.4 Activated Partial Thromboplast Time 29 24-35 SEC Sodium Level 135 135-145 MMOL/L Potassium Level 3.9 3.6-5.0 MMOL/L Chloride Level 106 98-107 MMOL/L Carbon Dioxide Level 19 L 21-32 MMOL/L Anion Gap 10 5-14 MMOL/L Blood Urea Nitrogen 15 7-18 MG/DL Creatinine 0.91 0.60-1.30 MG/DL Estimat Glomerular Filtration Rate > 60 BUN/Creatinine Ratio 16 Glucose Level 88 70-105 MG/DL Calcium Level 9.0 8.5-10.1 MG/DL Corrected Calcium 8.9 8.5-10.1 MG/DL Magnesium Level 1.9 1.6-2.4 MG/DL Total Bilirubin 1.3 H 0.1-1.0 MG/DL Aspartate Amino Transf (AST/SGOT) 18 5-34 U/L Alanine Aminotransferase (ALT/SGPT) 22 0-55 U/L Alkaline Phosphatase 111 40-136 U/L Myoglobin 26.1 10.0-92.0 NG/ML Troponin I < 0.028 < 0.028 <0.028 NG/ML Total Protein 7.4 6.4-8.2 GM/DL Albumin 4.1 3.2-4.5 GM/DL My Orders Orders - ROSIO KENNEDY APRN Troponin I (06/12/20 13:50) Chest 1 View, Ap/Pa Only (06/12/20 13:50) Ekg Tracing (06/12/20 13:50) Monitor-Rhythm Ecg Trace Only (06/12/20 13:50) Cbc With Automated Diff (06/12/20 14:07) Magnesium (06/12/20 14:07) Comprehensive Metabolic Panel (06/12/20 14:07) Myoglobin Serum (06/12/20 14:07) Protime With Inr (06/12/20 14:07) Partial Thromboplastin Time (06/12/20 14:07) O2 (06/12/20 14:07) Ed Iv/Invasive Line Start (06/12/20 14:07) Morphine Injection (Morphine Injection (06/12/20 15:00) Troponin I (06/12/20 16:00) Morphine Injection (Morphine Injection (06/12/20 15:17) Morphine Injection (Morphine Injection (06/12/20 17:10) Morphine Injection (Morphine Injection (06/12/20 17:41) Medications Given in ED Vital Signs/I&O 06/12/20 06/12/20 06/12/20 13:35 13:35 18:20 Temp 36.7 36.7 Pulse 86 86 Resp 20 20 B/P (MAP) 107/63 (78) 107/63 (78) Pulse Ox 97 97 O2 Delivery Room Air Room Air Room Air Progress Progress Note : Progress Note Upon ED arrival , she was sitting up in bed, smiling and joking, and rating her pain at 7 out of 10. Did not give her a third dose of nitroglycerin as her BP was 90 systolic. She received 1 liter of normal saline per EMS. Trialed a small dose of morphine sulfate 1 mg IV, states her pain reduced to 5 out of 10. Tolerated well. Discussed case with Dr. Maicas who recommended she take her Imdur daily as directed and follow-up with her parachute folder on Sunday. . She received a second dose of morphine 1 mg and states that her pain was 0 out of 10 after administration. Discussed following up with her parachute folder on Sunday and offered to provide a new prescription for a couple Imdur to get her through the weekend. She refused at this time. Departure Communication (Admissions) Time/Spoke to Consulting Phy: 17:[address] Macias, and he recommended she make follow-up appointment on Sunday with her parachute folder and to get her Imdur refilled. Impression Primary Impression: Chest pain Disposition: HOME, SELF-CARE Condition: Improved Departure-Patient Inst. Decision time for Depature: 17:50 Referrals: EDWAR LOBO DO (PCP/Family) Primary Care Physician Patient Instructions: Chest Pain (DC) Add. Discharge Instructions: Plan: 1. Discharge home. 2. Follow up with your parachute folder next week, please call for an appointment. 3. Refill your prescription for Imdur and take as directed. 4. Return for any new or concerning symptoms. All discharge instructions reviewed with patient and/or family. Voiced understa nding. ROSIO KENNEDY CLINICAL LABORATORY SERVICE TEACHER Jun 12, 2020 13:51
[2020-06-12 14:13] LABS: BASOPHILS % (AUTO) 1 % (0-10); EOSINOPHILS # (AUTO) 0.2 10^3/uL (0.0-0.3); EOSINOPHILS % (AUTO) 2 % (0-10); HEMATOCRIT 44 % (35-52); HEMOGLOBIN 15.2 g/dL (11.5-16.0); LYMPHOCYTES # (AUTO) 2.5 10^3/uL (1.0-4.0); LYMPHOCYTES % (AUTO) 39 % (12-44); MEAN CORPUSCULAR HEMOGLOBIN 32 pg (25-34); MEAN CORPUSCULAR HGB CONC 35 g/dL (32-36); MEAN CORPUSCULAR VOLUME 94 fL (80-99); MEAN PLATELET VOLUME 10.5 fL (9.0-12.2); MONOCYTES # (AUTO) 0.5 10^3/uL (0.0-1.0); MONOCYTES % (AUTO) 7 % (0-12); NEUTROPHILS # (AUTO) 3.4 10^3/uL (1.8-7.8); NEUTROPHILS % (AUTO) 51 % (42-75); PLATELET COUNT 293 10^3/uL (130-400); WHITE BLOOD COUNT 6.6 10^3/uL (4.3-11.0)
[2020-06-12 14:18] LABS: INR 0.9 (0.8-1.4); PROTHROMBIN TIME PATIENT 12.8 SEC (12.2-14.7)
[2020-06-12 14:20] LABS: ALBUMIN 4.1 GM/DL (3.2-4.5); CHLORIDE 106 MMOL/L (98-107); POTASSIUM 3.9 MMOL/L (3.6-5.0); SODIUM 135 MMOL/L (135-145)
[2020-06-12 14:22] LABS: GLUCOSE 88 MG/DL (70-105); TOTAL PROTEIN 7.4 GM/DL (6.4-8.2)
[2020-06-12 14:23] LABS: CARBON DIOXIDE 19 MMOL/L (21-32)
[2020-06-12 14:24] LABS: BILIRUBIN,TOTAL 1.3 MG/DL (0.1-1.0)
[2020-06-12 14:26] LABS: ALKALINE PHOSPHATASE 111 U/L (40-136); CREATININE SERUM 0.91 MG/DL (0.60-1.30); GFR ESTIMATED > 60
[2020-06-12 14:27] LABS: BUN/CREATININE RATIO 16
[2020-06-12 14:29] LABS: ALANINE AMINOTRANSFERASE 22 U/L (0-55)
[2020-06-12 14:30] LABS: MAGNESIUM 1.9 MG/DL (1.6-2.4)
--- NOTE | 2020-06-12 14:39 | Diagnostic Imaging Report ---
EXAMINATION: Portable chest. COMPARISON: Prior study from June 01, 2020. INDICATION: Chest pain. FINDING: Patient is status post sternotomy and bypass grafting. Heart size appears appropriate without evidence of current failure. There is no focal alveolar infiltrate or consolidation evident. There is no effusion or evidence of pneumothorax. No acute or suspicious osseous abnormality. IMPRESSION: Stable radiographic appearance of the chest. No acute cardiopulmonary process evident. Dictated by: Dictated on workstation # [id number]
[2020-06-12] MEDS ORDERED: morphine INJ 4 MG/ML 1 ML (VIAL/SYRINGE) IVP PRN (15:00)
[2020-06-12] MEDS ORDERED: morphine INJ 10 MG/ML 1ML (SYR OR VIAL) ONE (15:17)
[2020-06-12] MEDS ORDERED: morphine INJ 10 MG/ML 1ML (SYR OR VIAL) IVP STA ×2 (17:10→17:41)
[2020-06-12 18:20] VITALS: BP 107/63
== END 2020-06-12 18:20 | disposition home or self-care (01) ==
LOC: EDUNIT# 13:35 → ER 13:36
DX: R07.9 Chest pain, unspecified (principal); F41.9 Anxiety disorder, unspecified; F32.9 Major depressive disorder, single episode, unspecified; E78.00 Pure hypercholesterolemia, unspecified; I10 Essential (primary) hypertension; E11.9 Type 2 diabetes mellitus without complications; I25.2 Old myocardial infarction; Z88.0 Allergy status to penicillin; Z88.2 Allergy status to sulfonamides; Z88.8 Allergy status to other drugs, medicaments and biological substances; Z87.891 Personal history of nicotine dependence; Z95.5 Presence of coronary angioplasty implant and graft; Z95.1 Presence of aortocoronary bypass graft; Z85.41 Personal history of malignant neoplasm of cervix uteri; Z79.82 Long term (current) use of aspirin; Z79.84 Long term (current) use of oral hypoglycemic drugs
CPT/HCPCS: 36415; 71045; 80053; 83735; 83874; 84484; 85025; 85610; 85730; 93005; 93041

== ENCOUNTER 2020-07-01 17:08 | Emergency (ER) | payer MEDICARE, MEDICAID ==
[~2020-07-01] VITALS: Ht 172 cm; Wt 97.5 kg
[2020-07-01] MEDS ORDERED: ASPIRIN 81 MG CHEW (CHILDREN'S ASA) PO ONE (17:15)
[2020-07-01] MEDS ORDERED: morphine INJ 10 MG/ML 1ML (SYR OR VIAL) IVP STA (17:16)
[2020-07-01] MEDS ORDERED: NS IV 1000 ML 1,000 ML IV SCH (17:16)
[2020-07-01 17:20] LABS: BASOPHILS % (AUTO) 1 % (0-10); EOSINOPHILS # (AUTO) 0.1 10^3/uL (0.0-0.3); EOSINOPHILS % (AUTO) 2 % (0-10); HEMATOCRIT 46 % (35-52); HEMOGLOBIN 15.8 g/dL (11.5-16.0); LYMPHOCYTES # (AUTO) 2.5 10^3/uL (1.0-4.0); LYMPHOCYTES % (AUTO) 33 % (12-44); MEAN CORPUSCULAR HEMOGLOBIN 33 pg (25-34); MEAN CORPUSCULAR HGB CONC 34 g/dL (32-36); MEAN CORPUSCULAR VOLUME 96 fL (80-99); MEAN PLATELET VOLUME 10.3 fL (9.0-12.2); MONOCYTES # (AUTO) 0.5 10^3/uL (0.0-1.0); MONOCYTES % (AUTO) 7 % (0-12); NEUTROPHILS # (AUTO) 4.4 10^3/uL (1.8-7.8); NEUTROPHILS % (AUTO) 58 % (42-75); PLATELET COUNT 333 10^3/uL (130-400); WHITE BLOOD COUNT 7.6 10^3/uL (4.3-11.0)
[2020-07-01] MEDS ORDERED: NITROGLYCERIN 0.4 MG SL TABS BTL 25'S SL ONE (17:30)
[2020-07-01] MEDS ORDERED: ONDANSETRON 4 MG/2 ML (SDV) Z0FRAN IVP ONE (17:30)
[2020-07-01 17:31] LABS: INR 0.9 (0.8-1.4)
[2020-07-01 17:41] LABS: ALBUMIN 4.3 GM/DL (3.2-4.5); BILIRUBIN,TOTAL 1.1 MG/DL (0.1-1.0); CALCIUM 9.1 MG/DL (8.5-10.1); CREATININE SERUM 1.03 MG/DL (0.60-1.30); POTASSIUM 3.7 MMOL/L (3.6-5.0)
--- NOTE | 2020-07-01 17:44 | ED Chest Pain ---
General Stated Complaint: CHEST PAIN RADIATING DOWN LEFT ARM History of Present Illness Date Seen by Provider: Jul 01, 2020 Time Seen by Provider: 17:05 Initial Comments 45-year-old female with known cardiac history presents after approximately 20 minutes of chest pain. She states that 161 she began having some shortness of breath and then chest pain with radiation to her left arm. She took 1 nitro with no resolution of her symptoms and came to the emergency department by private vehicle. She reports mild nausea no vomiting. Timing/Duration: 1/2 hour Severity/Quality: moderate Location: substernal Radiation: arms (Left) Prior CP/Workup: cardiac cath, heart attack ASA po EMBOSSING MACHINE TENDER: No NTG SL EMBOSSING MACHINE TENDER: Yes (times 1) Associated Symptoms: No abdominal pain, No dizziness, No heartburn; nausea/vomiting Allergies and Home Medications Allergies Coded Allergies: Penicillins (Verified Allergy, Unknown, 11/05/06) Sulfa (Sulfonamide Antibiotics) (Verified Allergy, Unknown, 11/05/06) naproxen (Verified Allergy, Unknown, HIVES, NAUSEA--can take ibuprofen, 06/01/20) Home Medications Aripiprazole 15 Mg Tablet, 7.5 MG PO DAILY, (Reported) TAKES OF A 15MG TAB Aspirin 81 Mg Tablet.dr, 81 MG PO DAILY Prescribed by: MITCHELL LEBRON on 04/24/20 1014 Atorvastatin Calcium 80 Mg Tablet, 80 MG PO HS Prescribed by: MITCHELL LEBRON on 04/24/20 1231 Hydrocodone/Acetaminophen 1 Each Tablet, 1 EACH PO Q4-6HR PRN for PAIN-MODERATE Prescribed by: TAMRA CABALLERO on 06/01/20 1520 Hydroxyzine HCl 25 Mg Tablet, 25 MG PO BID PRN for ANXIETY, (Reported) Ibuprofen 200 Mg Tablet, 400 MG PO Q8H PRN for PAIN-MILD (1-4), (Reported) Isosorbide Mononitrate 30 Mg Tab.er.24h, 30 MG PO DAILY Prescribed by: RAINE HERNANDEZ on 05/09/20 0849 Metformin HCl 500 Mg Tablet, 500 MG PO DAILY, (Reported) Metoprolol Tartrate 25 Mg Tablet, 12.5 MG PO DAILY, (Reported) TAKES OF A 25MG TAB Sertraline HCl 100 Mg Tablet, 100 MG PO DAILY, (Reported) Ticagrelor 90 Mg Tablet, 90 MG PO BID Prescribed by: MITCHELL LEBRON on 04/24/20 1014 Zolpidem Tartrate 5 Mg Tablet, 5 MG PO HS PRN for SLEEP, (Reported) Patient Home Medication List Home Medication List Reviewed: Yes Review of Systems Review of Systems Constitutional: no symptoms reported, see HPI Respiratory: See HPI; Denies Cough; SOA With Exertion Cardiovascular: See HPI, Chest Pain Gastrointestinal: See HPI; Denies Abdominal Pain; Nausea; Denies Vomiting All Other Systems Reviewed Negative Unless Noted: Yes Past Akzbocd-Ljtvaz-Rqtowf Hx Past Med/Social Hx: Reviewed Nursing Past Med/Soc Hx Patient Social History Type Used: Electronic/Vapor Former Smoker, Quit: Apr 22, 2020 2nd Hand Smoke Exposure: No Recent Hopitalizations: Yes (cardiac stent 04/22/20) Immunizations Up To Date Date of Pneumonia Vaccine: Jun 20, 2013 Date of Influenza Vaccine: Jun 20, 2014 Seasonal Allergies Seasonal Allergies: No Past Medical History Surgeries: Yes Abdominal, Adenoidectomy, Cardiac, CABG, Coronary Stent, Ear Surgery, Gallbladder, Orthopedic, Tonsillectomy Respiratory: Yes Chronic Bronchitis, COPD Cardiac: Yes (NSTEMI 04/22/20; CABG 2009;MULT STENTS) Coronary Artery Disease, Deep Vein Thrombosis, Heart Attack, High Cholesterol, Hypertension Neurological: Yes Headaches /Migraines, Seizure Disorder Reproductive Disorders: Yes (HX CERVICAL CANCER) Sexually Transmitted Disease: Yes (HERPES) Genitourinary: No Gastrointestinal: Yes Gastroesophageal Reflux, Esophagitis, Hiatal Hernia, Gall Bladder Disease Musculoskeletal: Yes Arthritis Endocrine: Yes Hypothyroidsim, Diabetes, Non-Insulin dep HEENT: Yes (POOR DENTITION) Chronic Ear Infection Hearing Impairment: Hard of Hearing Cancer: Yes Cervical Did You Recieve Any Treatments: Yes What Type of Treatment Did You: Surgical Intervention Psychosocial: Yes Sleep Difficulties, Anxiety, Suicide Attempts, Depression Integumentary: No Blood Disorders: No Family Medical History PSH: -CARDIAC CATHS--MULTIPLE STENTS TO RCA AND STENT TO CIRCUMFLEX. LAST CATH 04/23/20 WITH STENT X 1 TO RCA -CABG IN 2009 -FABRICE FUNDOPLICATION Physical Exam Vital Signs Vital Signs - First Documented 07/01/20 17:08 Temp 36.6 Pulse 96 Resp 20 B/P (MAP) 128/74 (92) Pulse Ox 99 O2 Delivery Room Air Capillary Refill : Height, Weight, BMI Height: 5'8.00" Weight: 189lbs. 0.0oz. 85.457178xa; 32.00 BMI Method:Stated General Appearance: WD/WN, Obese HEENT: PERRL/EOMI, TMs Normal, Normal ENT Inspection, Pharynx Normal Neck: Full Range of Motion, Normal Inspection, Non Tender, Supple Respiratory: Chest Non Tender, Lungs Clear, Normal Breath Sounds Cardiovascular: Regular Rate, Rhythm, No Edema, No Murmur, Normal Peripheral Pulses Gastrointestinal: Normal Bowel Sounds, Non Tender, Soft Extremity: Normal Capillary Refill, Normal Inspection, Normal Range of Motion, No Calf Tenderness, No Pedal Edema Neurologic/Psychiatric: Alert, Oriented x3, No Motor/Sensory Deficits, Normal Mood/Affect Skin: Normal Color, Warm/Dry Progress/Results/Core Measures Results/Orders Lab Results Laboratory Tests Test 07/01/20 17:12 Range/Units White Blood Count 7.6 4.3-11.0 10^3/uL Red Blood Count 4.83 3.80-5.11 10^6/uL Hemoglobin 15.8 11.5-16.0 g/dL Hematocrit 46 35-52 % Mean Corpuscular Volume 96 80-99 fL Mean Corpuscular Hemoglobin 33 25-34 pg Mean Corpuscular Hemoglobin Concent 34 32-36 g/dL Red Cell Distribution Width 12.7 10.0-14.5 % Platelet Count 333 130-400 10^3/uL Mean Platelet Volume 10.3 9.0-12.2 fL Immature Granulocyte % (Auto) 0 % Neutrophils (%) (Auto) 58 42-75 % Lymphocytes (%) (Auto) 33 12-44 % Monocytes (%) (Auto) 7 0-12 % Eosinophils (%) (Auto) 2 0-10 % Basophils (%) (Auto) 1 0-10 % Neutrophils # (Auto) 4.4 1.8-7.8 10^3/uL Lymphocytes # (Auto) 2.5 1.0-4.0 10^3/uL Monocytes # (Auto) 0.5 0.0-1.0 10^3/uL Eosinophils # (Auto) 0.1 0.0-0.3 10^3/uL Basophils # (Auto) 0.0 0.0-0.1 10^3/uL Immature Granulocyte # (Auto) 0.0 0.0-0.1 10^3/uL Prothrombin Time 13.0 12.2-14.7 SEC INR Comment 0.9 0.8-1.4 Activated Partial Thromboplast Time 31 24-35 SEC Sodium Level 136 135-145 MMOL/L Potassium Level 3.7 3.6-5.0 MMOL/L Chloride Level 104 98-107 MMOL/L Carbon Dioxide Level 19 L 21-32 MMOL/L Anion Gap 13 5-14 MMOL/L Blood Urea Nitrogen 15 7-18 MG/DL Creatinine 1.03 0.60-1.30 MG/DL Estimat Glomerular Filtration Rate 57 BUN/Creatinine Ratio 15 Glucose Level 194 H 70-105 MG/DL Calcium Level 9.1 8.5-10.1 MG/DL Corrected Calcium 8.9 8.5-10.1 MG/DL Magnesium Level 2.0 1.6-2.4 MG/DL Total Bilirubin 1.1 H 0.1-1.0 MG/DL Aspartate Amino Transf (AST/SGOT) 17 5-34 U/L Alanine Aminotransferase (ALT/SGPT) 20 0-55 U/L Alkaline Phosphatase 113 40-136 U/L Myoglobin 30.6 10.0-92.0 NG/ML Troponin I < 0.028 <0.028 NG/ML C-Reactive Protein High Sensitivity 0.10 0.00-0.50 MG/DL Total Protein 8.0 6.4-8.2 GM/DL Albumin 4.3 3.2-4.5 GM/DL My Orders Orders - MELANIE SAEZ FOREPART REDUCER Cbc With Automated Diff (07/01/20 17:10) Magnesium (07/01/20 17:10) Chest 1 View, Ap/Pa Only (07/01/20 17:10) Ekg Tracing (07/01/20 17:10) Comprehensive Metabolic Panel (07/01/20 17:10) Myoglobin Serum (07/01/20 17:10) Protime With Inr (07/01/20 17:10) Partial Thromboplastin Time (07/01/20 17:10) O2 (07/01/20 17:10) Monitor-Rhythm Ecg Trace Only (07/01/20 17:10) Ed Iv/Invasive Line Start (07/01/20 17:10) Troponin I (07/01/20 17:10) Aspirin Chewable Tablet (Baby Aspirin Ch (07/01/20 17:15) Nitroglycerin 0.4 Mg Btl 25's (Nitrostat (07/01/20 17:30) Ondansetron Injection (Zofran Injectio (07/01/20 17:30) Morphine Injection (Morphine Injection (07/01/20 17:16) Ed Iv/Invasive Line Start (07/01/20 17:16) Ns Iv 1000 Ml (Sodium Chloride 0.9%) (07/01/20 17:16) Hs C Reactive Protein (07/01/20 18:31) Lidocaine 2% Viscous 15 Ml (Xylocaine Vi (07/01/20 18:45) Antacid Suspension (Mylanta Suspension (07/01/20 18:45) Hydrocodone/Apap 7.5/325 Tab (Lortab 7. (07/01/20 19:15) Medications Given in ED Current Medications Medications Dose Ordered Sig/Sara Route Start Time Stop Time Status Last Admin Dose Admin Acetaminophen/ Hydrocodone Bitart 1 ea ONCE ONCE PO 07/01/20 19:15 07/01/20 19:16 DC 07/01/20 19:27 1 EA Al Hydrox/Mg Hydrox/Simethicone 30 ml ONCE ONCE PO 07/01/20 18:45 07/01/20 18:46 DC 07/01/20 18:50 30 ML Aspirin 324 mg ONCE ONCE PO 07/01/20 17:15 07/01/20 17:16 DC 07/01/20 17:18 324 MG Lidocaine HCl 15 ml ONCE ONCE PO 07/01/20 18:45 07/01/20 18:46 DC 07/01/20 18:50 15 ML Nitroglycerin 1 BOTTLE ONCE ONCE SL 07/01/20 17:30 07/01/20 17:31 DC 07/01/20 17:45 0.4 MG Ondansetron HCl 4 mg ONCE ONCE IVP 07/01/20 17:30 07/01/20 17:31 DC 07/01/20 17:46 4 MG Vital Signs/I&O 07/01/20 07/01/20 07/01/20 17:08 17:08 20:21 Temp 36.6 36.6 Pulse 96 80 Resp 20 18 B/P (MAP) 128/74 (92) 94/73 (92) Pulse Ox 99 100 O2 Delivery Room Air Room Air Progress Progress Note : Time: 17:05 Progress Note Patient seen and evaluated, will obtain labs, EKG and chest x-ray. Zofran 4 mg IV for nausea, aspirin 324 mg orally, morphine 2 mg IV for pain. Will give 1 additional nitro blood pressure is stable. Normal saline 1 L per IV. 1744 Labs all WNL. EKG no ST elevation. 1814 patient reports continued substernal pain, less than at admission but present. Will give GI cocktail. Patient does report being homeless and staying with a friend, but not sure how much longer she can stay there. [address] Macias, recommended d/c to home. Patient requesting Hydrocodone for chest pain. 1999 patient reports pain has improved. No further complaints at this time. Discharge instructions and return precautions reviewed with the patient. Initial ECG Impression Date: Jul 01, 2020 Initial ECG Impression Time: 17:10 Initial ECG Rate: 95 Initial ECG Rhythm: Normal Sinus Initial ECG Intervals: Normal Initial ECG Intervals UT 162, QRSD 114, QT 365, QTc 459. [place] P 22, QRS -10, T 15. Initial ECG Impression: Normal Initial ECG Comparisson: Unchanged Diagnostic Imaging Diagonstic Imaging: Xray Plain Films/CT/US/NM/MRI: chest Comments NAME: WAN DA SILVA MED REC#: [id number] PT STATUS: REG ER : 1975 PHYSICIAN: MELANIE SAEZ ADMIT DATE: 07/01/20/ER Draft Date of Exam:07/01/20 CHEST 1 VIEW, AP/PA ONLY INDICATION: Chest pain radiating to the left arm. Upright portable chest shows normal heart size and vascularity. The lungs are clear. There is no effusion or pneumothorax. There are changes of prior CABG. IMPRESSION: No acute abnormality is seen with no change from 06/12/2020. Dictated on workstation # [id number] Dict: 07/01/201739 Trans: 07/01/201743 CVB [id number] Interpreted by: CLEMENCIA JEWELL MD Electronically signed by: Departure Impression Primary Impression: Angina pectoris Additional Impression: Chest pain Disposition: HOME, SELF-CARE Condition: Improved Departure-Patient Inst. Decision time for Depature: 20:00 Referrals: JIMENA ROBLES MD [facility] EDWAR LOBO DO (PCP/Family) Primary Care Physician Patient Instructions: Angina (DC) Add. Discharge Instructions: Continue to take your aspirin and Plavix as prescribed. Use your nitroglycerin at first onset of chest pain. Follow-up with your box sealing machine catcher. Return to the emergency department for new, urgent health care problems. Copy Copies To 1: JIMENA ROBLES MD [facility] MELANIE SAEZ Jul 01, 2020 17:44
[2020-07-01] MEDS ORDERED: ANTACID SUSP 30 ML UDC (MYLANTA) PO ONE (18:45)
[2020-07-01] MEDS ORDERED: LIDOCAINE 2% VISCOUS 15 ML UDC PO ONE (18:45)
[2020-07-01] MEDS ORDERED: HYDROcodone/APAP 7.5 MG/325 MG (LORTAB, LORCET PLUS) TABLET PO ONE (19:15)
[2020-07-01 20:21] VITALS: BP 94/73
== END 2020-07-01 20:21 | disposition home or self-care (01) ==
LOC: EDUNIT# 17:08 → ER 17:09
DX: I20.9 Angina pectoris, unspecified (principal); R07.9 Chest pain, unspecified; E66.9 Obesity, unspecified; I10 Essential (primary) hypertension; E78.00 Pure hypercholesterolemia, unspecified; I25.2 Old myocardial infarction; E11.9 Type 2 diabetes mellitus without complications; F41.9 Anxiety disorder, unspecified; F32.9 Major depressive disorder, single episode, unspecified; Z68.32 Body mass index [BMI] 32.0-32.9, adult; Z95.1 Presence of aortocoronary bypass graft; Z95.5 Presence of coronary angioplasty implant and graft; Z95.9 Presence of cardiac and vascular implant and graft, unspecified; Z85.41 Personal history of malignant neoplasm of cervix uteri; Z87.891 Personal history of nicotine dependence; Z79.84 Long term (current) use of oral hypoglycemic drugs; Z79.82 Long term (current) use of aspirin; Z88.0 Allergy status to penicillin; Z88.2 Allergy status to sulfonamides; Z88.8 Allergy status to other drugs, medicaments and biological substances
CPT/HCPCS: 36415; 71045; 80053; 83735; 83874; 84484; 85025; 85610; 85730; 86141; 93005; 93041

== ENCOUNTER 2021-01-17 20:30 | Emergency (ER) | payer MEDICARE, MEDICAID ==
[~2021-01-17] VITALS: Ht 172.7 cm; Wt 97.7 kg
[~2021-01-17 20:30] MED LIST changes: -ISOS30TA3 PO; +ISOS30TA82 PO; +SERT-414 PO; -SERT100T8 PO
[2021-01-17 20:32] VITALS: BP 139/88
--- NOTE | 2021-01-17 21:07 | ED Upper Extremity ---
General Chief Complaint: Upper Extremity Stated Complaint: R HAND PAIN Nursing Triage Note: AMBULATES TO TRIAGE FROM POV W/CO R THUMB DISCOMFORT. STATES SHE FELL ON 01/08/21 AND CAUGHT HERSELF WITH HER R HAND. STATES SHE WAS BEEN IN THE ER AT [facility] [place] SHE WAS TOLD SHE HAS "BONE SPURS." STATES CONTINUED PAIN AND DISCOMFORT SINCE INJURY. STATES 4HRS AGO SHE TOOK 400MG ADVIL WITH NO RELIEF IN PAIN. Nursing Sepsis Screen: No Definite Risk Source: patient Exam Limitations: no limitations History of Present Illness Date Seen by Provider: January 17, 2021 Time Seen by Provider: 21:05 Initial Comments To ER with right thumb discomfort after she fell on it on the . She went to [facility] and they were "rude and unhelpful and did not do anything". She comes in today with persistent pain. Onset: just prior to arrival Severity: moderate Pain/Injury Location: right thumb Method of Injury: fell Modifying Factors: Worse With Movement Allergies and Home Medications Allergies Coded Allergies: Penicillins (Verified Allergy, Unknown, 11/05/06) Sulfa (Sulfonamide Antibiotics) (Verified Allergy, Unknown, 11/05/06) naproxen (Verified Allergy, Unknown, HIVES, NAUSEA--can take ibuprofen, 06/01/20) Home Medications Aripiprazole 15 Mg Tablet, 7.5 MG PO DAILY, (Reported) TAKES OF A 15MG TAB Aspirin 81 Mg Tablet.dr, 81 MG PO DAILY Prescribed by: MITCHELL LEBRON on 04/24/20 1014 Atorvastatin Calcium 80 Mg Tablet, 80 MG PO HS Prescribed by: MITCHELL LEBRON on 04/24/20 1231 Hydrocodone/Acetaminophen 1 Each Tablet, 1 EACH PO Q4-6HR PRN for PAIN-MODERATE Prescribed by: TAMRA CABALLERO on 06/01/20 1520 Hydroxyzine HCl 25 Mg Tablet, 25 MG PO BID PRN for ANXIETY, (Reported) Ibuprofen 200 Mg Tablet, 400 MG PO Q8H PRN for PAIN-MILD (1-4), (Reported) Isosorbide Mononitrate 30 Mg Tab.er.24h, 30 MG PO DAILY Prescribed by: RAINE HERNANDEZ on 05/09/20 0849 Metformin HCl 500 Mg Tablet, 500 MG PO DAILY, (Reported) Metoprolol Tartrate 25 Mg Tablet, 12.5 MG PO DAILY, (Reported) TAKES OF A 25MG TAB Sertraline HCl 100 Mg Tablet, 100 MG PO DAILY, (Reported) Ticagrelor 90 Mg Tablet, 90 MG PO BID Prescribed by: MITCHELL LEBRON on 04/24/20 1014 Zolpidem Tartrate 5 Mg Tablet, 5 MG PO HS PRN for SLEEP, (Reported) Patient Home Medication List Home Medication List Reviewed: Yes Review of Systems Constitutional: see HPI EENTM: see HPI Respiratory: no symptoms reported Cardiovascular: no symptoms reported Genitourinary: no symptoms reported Musculoskeletal: see HPI Skin: no symptoms reported Psychiatric/Neurological: No Symptoms Reported Past Izjgsyz-Vehxrq-Aubbfl Hx Patient Social History Alcohol Use: Denies Use Smoking Status: Current Everyday Smoker Type Used: Electronic/Vapor Former Smoker, Quit: Apr 22, 2020 2nd Hand Smoke Exposure: No Recent Infectious Disease Expo: No Recent Hopitalizations: Yes (cardiac stent 04/22/20) Immunizations Up To Date Tetanus Booster (TDap): More than 5yrs Date of Pneumonia Vaccine: Jun 20, 2013 Date of Influenza Vaccine: May 24, 2020 Seasonal Allergies Seasonal Allergies: No Past Medical History Surgeries: Yes Abdominal, Adenoidectomy, Cardiac, CABG, Coronary Stent, Ear Surgery, Gallbladder, Orthopedic, Tonsillectomy Respiratory: Yes Chronic Bronchitis, COPD Cardiac: Yes (NSTEMI 04/22/20; CABG 2009;MULT STENTS) Coronary Artery Disease, Deep Vein Thrombosis, Heart Attack, High Cholesterol, Hypertension Neurological: Yes Headaches /Migraines, Seizure Disorder Reproductive Disorders: Yes (HX CERVICAL CANCER) Sexually Transmitted Disease: Yes (HERPES) Genitourinary: No Gastrointestinal: Yes Gastroesophageal Reflux, Esophagitis, Hiatal Hernia, Gall Bladder Disease Musculoskeletal: Yes Arthritis Endocrine: Yes Hypothyroidsim, Diabetes, Non-Insulin dep HEENT: Yes (POOR DENTITION) Chronic Ear Infection Hearing Impairment: Hard of Hearing Cancer: Yes Cervical Did You Recieve Any Treatments: Yes What Type of Treatment Did You: Surgical Intervention Psychosocial: Yes Sleep Difficulties, Anxiety, Suicide Attempts, Depression Integumentary: No Blood Disorders: No Family Medical History PSH: -CARDIAC CATHS--MULTIPLE STENTS TO RCA AND STENT TO CIRCUMFLEX. LAST CATH 04/23/20 WITH STENT X 1 TO RCA -CABG IN 2009 -FABRICE FUNDOPLICATION Physical Exam Vital Signs Vital Signs - First Documented 01/17/21 20:32 Temp 35.7 Pulse 96 Resp 18 B/P (MAP) 139/88 (105) Pulse Ox 98 O2 Delivery Room Air Capillary Refill : Less Than 3 Seconds Height, Weight, BMI Height: 5'8.00" Weight: 189lbs. 0.0oz. 85.513079eu; 32.00 BMI Method:Stated General Appearance: WD/WN, no apparent distress Respiratory: no respiratory distress, no accessory muscle use Shoulder: normal inspection, non-tender Elbow/Forearm: normal inspection, non-tender Wrist: Yes normal inspection, Yes non-tender Hand: normal inspection, Right Neurologic/Psychiatric: alert, normal mood/affect, oriented x 3 Skin: normal color, warm/dry Progress/Results/Core Measures Results/Orders My Orders Orders - TAMRA CABALLERO APRN Hand, Right, 3 Views (01/17/21 21:01) Vital Signs/I&O 01/17/21 20:32 Temp 35.7 Pulse 96 Resp 18 B/P (MAP) 139/88 (105) Pulse Ox 98 O2 Delivery Room Air Blood Pressure Mean: 105 Departure Communication (Admissions) Fashioned thumb spica out of 3inch orthoglass Impression Primary Impression: Thumb sprain Disposition: HOME, SELF-CARE Condition: Stable Departure-Patient Inst. Decision time for Depature: 21:07 Referrals: ASHTYN KAPLAN MD, WILLIAM J DO (PCP/Family) Primary Care Physician ANNMARIE BOYD MD Patient Instructions: Hand Pain (DC) Add. Discharge Instructions: 1. Wear the splint at all times. Follow-up with orthopedics tomorrow. All discharge instructions reviewed with patient and/or family. Voiced understanding. TAMRA CABALLERO APRN January 17, 2021 21:07
--- NOTE | 2021-01-17 21:21 | Diagnostic Imaging Report ---
INDICATION: Pain after a fall. FINDINGS: The alignment is normal. There is no fracture or dislocation. Soft tissues are unremarkable. IMPRESSION: No acute fracture or dislocation. Dictated by: Dictated on workstation # [id number]
== END 2021-01-17 21:47 | disposition home or self-care (01) ==
LOC: EDUNIT# 20:30 → ER 20:32
DX: S63.601A Unspecified sprain of right thumb, initial encounter (principal); I11.0 Hypertensive heart disease with heart failure; I50.9 Heart failure, unspecified; I25.10 Atherosclerotic heart disease of native coronary artery without angina pectoris; I25.2 Old myocardial infarction; E11.9 Type 2 diabetes mellitus without complications; J44.9 Chronic obstructive pulmonary disease, unspecified; E78.00 Pure hypercholesterolemia, unspecified; G43.909 Migraine, unspecified, not intractable, without status migrainosus; F41.9 Anxiety disorder, unspecified; F32.9 Major depressive disorder, single episode, unspecified; F17.290 Nicotine dependence, other tobacco product, uncomplicated; Z95.1 Presence of aortocoronary bypass graft; Z95.5 Presence of coronary angioplasty implant and graft; Z79.82 Long term (current) use of aspirin; Z79.84 Long term (current) use of oral hypoglycemic drugs; Z79.899 Other long term (current) drug therapy; W18.39XA Other fall on same level, initial encounter
CPT/HCPCS: 73130

== ENCOUNTER 2021-01-31 17:35 | Emergency (ER) | payer MEDICARE, MEDICAID ==
[~2021-01-31] VITALS: Ht 172 cm; Wt 97.5 kg
--- NOTE | 2021-01-31 17:46 | ED Chest Pain ---
General Stated Complaint: CHEST PAIN, SOA, L ARM PAIN Source: patient Exam Limitations: no limitations History of Present Illness Date Seen by Provider: Jan 31, 2021 Time Seen by Provider: 17:46 Initial Comments This is a 45-year-old female who presented to the ER via POV with complaints of left chest pain that radiates into her left arm. States that she took 2 nitros prior to arrival which did nothing to alleviate her symptoms. Reports mild nausea without vomiting. Allergies and Home Medications Allergies Coded Allergies: Penicillins (Verified Allergy, Unknown, 11/05/06) Sulfa (Sulfonamide Antibiotics) (Verified Allergy, Unknown, 11/05/06) naproxen (Verified Allergy, Unknown, HIVES, NAUSEA--can take ibuprofen, 06/01/20) Home Medications Aripiprazole 15 Mg Tablet, 7.5 MG PO DAILY, (Reported) TAKES OF A 15MG TAB Aspirin 81 Mg Tablet.dr, 81 MG PO DAILY Prescribed by: MITCHELL LEBRON on 04/24/20 1014 Atorvastatin Calcium 80 Mg Tablet, 80 MG PO HS Prescribed by: MITCHELL LEBRON on 04/24/20 1231 Hydrocodone/Acetaminophen 1 Each Tablet, 1 EACH PO Q4-6HR PRN for PAIN-MODERATE Prescribed by: TAMRA CABALLERO on 06/01/20 1520 Hydroxyzine HCl 25 Mg Tablet, 25 MG PO BID PRN for ANXIETY, (Reported) Ibuprofen 200 Mg Tablet, 400 MG PO Q8H PRN for PAIN-MILD (1-4), (Reported) Isosorbide Mononitrate 30 Mg Tab.er.24h, 30 MG PO DAILY Prescribed by: RAINE HERNANDEZ on 05/09/20 0849 Metformin HCl 500 Mg Tablet, 500 MG PO DAILY, (Reported) Metoprolol Tartrate 25 Mg Tablet, 12.5 MG PO DAILY, (Reported) TAKES OF A 25MG TAB Sertraline HCl 100 Mg Tablet, 100 MG PO DAILY, (Reported) Ticagrelor 90 Mg Tablet, 90 MG PO BID Prescribed by: MITCHELL LEBRON on 04/24/20 1014 Zolpidem Tartrate 5 Mg Tablet, 5 MG PO HS PRN for SLEEP, (Reported) Patient Home Medication List Home Medication List Reviewed: Yes Review of Systems Review of Systems Constitutional: no symptoms reported EENTM: No Symptoms Reported Respiratory: See HPI Cardiovascular: See HPI Gastrointestinal: No Symptoms Reported Genitourinary: No Symptoms Reported Musculoskeletal: no symptoms reported Skin: no symptoms reported Psychiatric/Neurological: No Symptoms Reported Endocrine: No Symptoms Reported Hematologic/Lymphatic: No Symptoms Reported Past Bnfkcds-Jptgjv-Wtdmeq Hx Patient Social History Type Used: Electronic/Vapor Former Smoker, Quit: Apr 22, 2020 2nd Hand Smoke Exposure: No Recent Hopitalizations: Yes (cardiac stent 04/22/20) Immunizations Up To Date Tetanus Booster (TDap): More than 5yrs Date of Pneumonia Vaccine: Jun 20, 2013 Date of Influenza Vaccine: May 24, 2020 Seasonal Allergies Seasonal Allergies: No Past Medical History Surgeries: Yes Abdominal, Adenoidectomy, Cardiac, CABG, Coronary Stent, Ear Surgery, Gallbladder, Orthopedic, Tonsillectomy Respiratory: Yes Chronic Bronchitis, COPD Cardiac: Yes (NSTEMI 04/22/20; CABG 2009;MULT STENTS) Coronary Artery Disease, Deep Vein Thrombosis, Heart Attack, High Cholesterol, Hypertension Neurological: Yes Headaches /Migraines, Seizure Disorder Reproductive Disorders: Yes (HX CERVICAL CANCER) Sexually Transmitted Disease: Yes (HERPES) Genitourinary: No Gastrointestinal: Yes Gastroesophageal Reflux, Esophagitis, Hiatal Hernia, Gall Bladder Disease Musculoskeletal: Yes Arthritis Endocrine: Yes Hypothyroidsim, Diabetes, Non-Insulin dep HEENT: Yes (POOR DENTITION) Chronic Ear Infection Hearing Impairment: Hard of Hearing Cancer: Yes Cervical Did You Recieve Any Treatments: Yes What Type of Treatment Did You: Surgical Intervention Psychosocial: Yes Sleep Difficulties, Anxiety, Suicide Attempts, Depression Integumentary: No Blood Disorders: No Family Medical History PSH: -CARDIAC CATHS--MULTIPLE STENTS TO RCA AND STENT TO CIRCUMFLEX. LAST CATH 04/23/20 WITH STENT X 1 TO RCA -CABG IN 2009 -FABRICE FUNDOPLICATION Physical Exam Vital Signs Vital Signs - First Documented 01/31/21 18:30 Pulse Ox 97 FiO2 21 Capillary Refill : Height, Weight, BMI Height: 5'8.00" Weight: 189lbs. 0.0oz. 85.165777mb; 32.00 BMI Method:Stated General Appearance: No Apparent Distress, WD/WN HEENT: PERRL/EOMI, TMs Normal, Normal ENT Inspection, Pharynx Normal Neck: Full Range of Motion, Normal Inspection Respiratory: No Accessory Muscle Use, No Respiratory Distress, Expiration, Wheezing Cardiovascular: Regular Rate, Rhythm, No Murmur, Normal Peripheral Pulses Gastrointestinal: Normal Bowel Sounds, Non Tender, Soft Extremity: Normal Capillary Refill, Normal Inspection, Normal Range of Motion Neurologic/Psychiatric: Alert, Oriented x3, No Motor/Sensory Deficits, Normal Mood/Affect Skin: Normal Color, Warm/Dry Progress/Results/Core Measures Results/Orders Lab Results Laboratory Tests Test 01/31/21 17:50 01/31/21 19:55 Range/Units White Blood Count 7.1 4.3-11.0 10^3/uL Red Blood Count 4.23 3.80-5.11 10^6/uL Hemoglobin 13.6 11.5-16.0 g/dL Hematocrit 39 35-52 % Mean Corpuscular Volume 92 80-99 fL Mean Corpuscular Hemoglobin 32 25-34 pg Mean Corpuscular Hemoglobin Concent 35 32-36 g/dL Red Cell Distribution Width 12.2 10.0-14.5 % Platelet Count 258 130-400 10^3/uL Mean Platelet Volume 10.5 9.0-12.2 fL Immature Granulocyte % (Auto) 0 % Neutrophils (%) (Auto) 41 L 42-75 % Lymphocytes (%) (Auto) 43 12-44 % Monocytes (%) (Auto) 8 0-12 % Eosinophils (%) (Auto) 7 0-10 % Basophils (%) (Auto) 1 0-10 % Neutrophils # (Auto) 2.9 1.8-7.8 10^3/uL Lymphocytes # (Auto) 3.0 1.0-4.0 10^3/uL Monocytes # (Auto) 0.6 0.0-1.0 10^3/uL Eosinophils # (Auto) 0.5 H 0.0-0.3 10^3/uL Basophils # (Auto) 0.1 0.0-0.1 10^3/uL Immature Granulocyte # (Auto) 0.0 0.0-0.1 10^3/uL Sodium Level 139 135-145 MMOL/L Potassium Level 4.0 3.6-5.0 MMOL/L Chloride Level 105 98-107 MMOL/L Carbon Dioxide Level 23 21-32 MMOL/L Anion Gap 11 5-14 MMOL/L Blood Urea Nitrogen 12 7-18 MG/DL Creatinine 1.11 0.60-1.30 MG/DL Estimat Glomerular Filtration Rate 53 BUN/Creatinine Ratio 11 Glucose Level 233 H 70-105 MG/DL Calcium Level 9.3 8.5-10.1 MG/DL Corrected Calcium 9.4 8.5-10.1 MG/DL Magnesium Level 1.8 1.6-2.4 MG/DL Total Bilirubin 0.5 0.1-1.0 MG/DL Aspartate Amino Transf (AST/SGOT) 13 5-34 U/L Alanine Aminotransferase (ALT/SGPT) 13 0-55 U/L Alkaline Phosphatase 100 40-136 U/L Total Creatine Kinase 83 29-168 U/L Myoglobin 30.5 10.0-92.0 NG/ML Troponin I < 0.028 < 0.028 <0.028 NG/ML B-Type Natriuretic Peptide 95.4 <100.0 PG/ML Total Protein 6.7 6.4-8.2 GM/DL Albumin 3.9 3.2-4.5 GM/DL My Orders Orders - ROSIO KENNEDY APRN Ekg Tracing (01/31/21 17:38) Cbc With Automated Diff (01/31/21 17:54) Magnesium (01/31/21 17:54) Chest 1 View, Ap/Pa Only (01/31/21 17:54) Comprehensive Metabolic Panel (01/31/21 17:54) Myoglobin Serum (01/31/21 17:54) O2 (01/31/21 17:54) Monitor-Rhythm Ecg Trace Only (01/31/21 17:54) Ed Iv/Invasive Line Start (01/31/21 17:54) Creatine Kinase (01/31/21 17:54) BNP (01/31/21 17:54) Troponin I (01/31/21 17:54) Nitroglycerin Ointment (Nitrobid Ointme (01/31/21 17:54) Aspirin Chewable Tablet (Baby Aspirin Ch (01/31/21 18:00) Ondansetron Injection (Zofran Injectio (01/31/21 18:30) Albuterol/Ipra Inhalation Soln (Duoneb I (01/31/21 18:30) Svn Small Volume Nebulizer (01/31/21 18:19) Morphine Injection (Morphine Injection (01/31/21 18:38) Troponin I (01/31/21 20:00) Morphine Injection (Morphine Injection (01/31/21 19:35) Medications Given in ED Vital Signs/I&O 01/31/21 01/31/21 01/31/21 01/31/21 17:38 17:38 18:30 21:00 Temp 36.4 36.6 Pulse 92 84 Resp 22 16 B/P (MAP) 129/76 (93) 110/71 Pulse Ox 97 97 O2 Delivery Room Air Room Air Room Air FiO2 21 Progress Progress Note : Progress Note Patient examined and in no acute distress. She is well-known to this ER comes in for same complaint frequently. Additionally reports that nitro does not tend to help, only the morphine helps the chest pain. Orders given for nitro paste and cardiac work-up. Shortly after receiving Nitropaste states that she felt sweaty. She was not hypotensive at this time. Nitropaste removed. Given morphine 1 mg IV push. Reports that this did improve her symptoms. Labs reviewed and showed no acute pathology, troponin negative. Will repeat troponin in 2 hours. While waiting for second troponin she states that pain returned. Orders given for morphine 1 mg IV push. Reviewed labs and chest x-ray findings with her. States that her pain is no longer present. Second troponin was negative. Discussed having close follow-up with her lead qa analyst. She is agreeable with this. At time of discharge she was sitting up on bed, laughing and joking with her friend. Initial ECG Impression Date: Jan 31, 2021 Initial ECG Impression Time: 17:46 Initial ECG Rate: 91 Initial ECG Rhythm: Normal Sinus Initial ECG Impression: Nonspecific Changes Initial ECG Comparisson: Unchanged Diagnostic Imaging Diagonstic Imaging: Xray Plain Films/CT/US/NM/MRI: chest Comments [facility], [place] NAME: WAN [facility] REC#: [id number] PT STATUS: REG ER : 1975 PHYSICIAN: ROSIO KENNEDY APRN ADMIT DATE: 01/31/21/ER Signed Date of Exam:01/31/21 CHEST 1 VIEW, AP/PA ONLY INDICATION: Chest pain. COMPARISON STUDY: Chest from 07/01/2020. FINDINGS: Frontal view of the chest demonstrates previous sternotomy changes. The heart size is normal. The vascularity is slightly prominent. No effusions are present. There are no focal infiltrates. IMPRESSION: There is mild prominence of the pulmonary vascularity. Dictated by: Dictated on workstation # [id number] Dict: 01/31/21 1834 Trans: 01/31/211856 AS6 [id number] Interpreted by: LORELEI BURCIAGA MD Electronically signed by: LORELEI BURCIAGA MD 01/31/211856 Reviewed: Reviewed by Me Departure Impression Primary Impression: Chest pain Disposition: 01 HOME, SELF-CARE Condition: Improved Departure-Patient Inst. Decision time for Depature: 20:43 Referrals: EDWAR LOBO DO (PCP/Family) Primary Care Physician Patient Instructions: Chest Pain (DC) Add. Discharge Instructions: Plan: 1. Follow up with Dr. Aguilar if you have persistent chest pain. 2. Take your medications as directed. 3. Return to ER for any new, concerning, or worsening symptoms. ROSIO KENNEDY CORPORATE TRAVEL COORDINATOR Jan 31, 2021 17:46
[2021-01-31] MEDS ORDERED: NITROGLYCERIN 2% OINT 1 GM UNIT DOSE PACKET TOP STA (17:54)
[2021-01-31] MEDS ORDERED: ASPIRIN 81 MG CHEW (CHILDREN'S ASA) PO ONE (18:00)
[2021-01-31 18:01] LABS: BASOPHILS # (AUTO) 0.1 10^3/uL (0.0-0.1); BASOPHILS % (AUTO) 1 % (0-10); EOSINOPHILS # (AUTO) 0.5 10^3/uL (0.0-0.3); EOSINOPHILS % (AUTO) 7 % (0-10); HEMATOCRIT 39 % (35-52); HEMOGLOBIN 13.6 g/dL (11.5-16.0); LYMPHOCYTES % (AUTO) 43 % (12-44); MEAN CORPUSCULAR HEMOGLOBIN 32 pg (25-34); MEAN CORPUSCULAR HGB CONC 35 g/dL (32-36); MEAN CORPUSCULAR VOLUME 92 fL (80-99); MEAN PLATELET VOLUME 10.5 fL (9.0-12.2); MONOCYTES # (AUTO) 0.6 10^3/uL (0.0-1.0); MONOCYTES % (AUTO) 8 % (0-12); NEUTROPHILS # (AUTO) 2.9 10^3/uL (1.8-7.8); NEUTROPHILS % (AUTO) 41 % (42-75); PLATELET COUNT 258 10^3/uL (130-400); WHITE BLOOD COUNT 7.1 10^3/uL (4.3-11.0)
[2021-01-31 18:12] LABS: ALBUMIN 3.9 GM/DL (3.2-4.5)
[2021-01-31 18:14] LABS: CALCIUM 9.3 MG/DL (8.5-10.1)
[2021-01-31 18:15] LABS: TOTAL PROTEIN 6.7 GM/DL (6.4-8.2)
[2021-01-31 18:17] LABS: BILIRUBIN,TOTAL 0.5 MG/DL (0.1-1.0)
[2021-01-31 18:18] LABS: CREATININE SERUM 1.11 MG/DL (0.60-1.30)
[2021-01-31 18:21] LABS: MAGNESIUM 1.8 MG/DL (1.6-2.4)
[2021-01-31] MEDS ORDERED: ONDANSETRON 4 MG/2 ML (SDV) Z0FRAN IVP ONE (18:30)
[2021-01-31] MEDS ORDERED: RT-ALBUTEROL/IPRATROPIUM 3 ML (DUONEB) VIAL INH ONE (18:30)
--- NOTE | 2021-01-31 18:37 | Diagnostic Imaging Report ---
INDICATION: Chest pain. COMPARISON STUDY: Chest from 07/01/2020. FINDINGS: Frontal view of the chest demonstrates previous sternotomy changes. The heart size is normal. The vascularity is slightly prominent. No effusions are present. There are no focal infiltrates. IMPRESSION: There is mild prominence of the pulmonary vascularity. Dictated by: Dictated on workstation # [id number]
[2021-01-31] MEDS ORDERED: morphine INJ 10 MG/ML 1ML (SYR OR VIAL) IVP STA ×2 (18:38→19:35)
[2021-01-31 21:00] VITALS: BP 110/71
== END 2021-01-31 21:00 | disposition home or self-care (01) ==
LOC: EDUNIT# 17:35 → ER 17:37
DX: R07.9 Chest pain, unspecified (principal); I10 Essential (primary) hypertension; J44.9 Chronic obstructive pulmonary disease, unspecified; I25.10 Atherosclerotic heart disease of native coronary artery without angina pectoris; I25.2 Old myocardial infarction; E78.00 Pure hypercholesterolemia, unspecified; F41.9 Anxiety disorder, unspecified; E11.9 Type 2 diabetes mellitus without complications; Z87.891 Personal history of nicotine dependence; Z79.82 Long term (current) use of aspirin; Z79.84 Long term (current) use of oral hypoglycemic drugs; Z79.899 Other long term (current) drug therapy
CPT/HCPCS: 36415; 71045; 80053; 82550; 83735; 83874; 83880; 84484; 85025; 93005; 93041; 94640; 94760

== ENCOUNTER 2021-02-03 16:29 | Observation (INO) | payer MEDICARE, MEDICAID ==
[~2021-02-03] VITALS: Ht 172 cm; Wt 103.0 kg
[~2021-02-03 16:29] MED LIST changes: +ARIP15TA20 PO; -ARIP15TA9 PO
[2021-02-03] MEDS ORDERED: ASPIRIN 81 MG CHEW (CHILDREN'S ASA) PO ONE (16:45)
[2021-02-03 16:57] LABS: BASOPHILS # (AUTO) 0.1 10^3/uL (0.0-0.1); BASOPHILS % (AUTO) 1 % (0-10); EOSINOPHILS # (AUTO) 0.5 10^3/uL (0.0-0.3); EOSINOPHILS % (AUTO) 6 % (0-10); HEMATOCRIT 42 % (35-52); HEMOGLOBIN 14.8 g/dL (11.5-16.0); LYMPHOCYTES # (AUTO) 3.5 10^3/uL (1.0-4.0); LYMPHOCYTES % (AUTO) 42 % (12-44); MEAN CORPUSCULAR HEMOGLOBIN 32 pg (25-34); MEAN CORPUSCULAR HGB CONC 35 g/dL (32-36); MEAN CORPUSCULAR VOLUME 92 fL (80-99); MEAN PLATELET VOLUME 10.5 fL (9.0-12.2); MONOCYTES # (AUTO) 0.6 10^3/uL (0.0-1.0); MONOCYTES % (AUTO) 7 % (0-12); NEUTROPHILS # (AUTO) 3.7 10^3/uL (1.8-7.8); NEUTROPHILS % (AUTO) 45 % (42-75); PLATELET COUNT 296 10^3/uL (130-400); WHITE BLOOD COUNT 8.4 10^3/uL (4.3-11.0)
[2021-02-03 17:09] LABS: POTASSIUM 3.9 MMOL/L (3.6-5.0)
[2021-02-03 17:10] LABS: CALCIUM 9.4 MG/DL (8.5-10.1)
[2021-02-03 17:11] LABS: TOTAL PROTEIN 7.3 GM/DL (6.4-8.2)
[2021-02-03 17:13] LABS: BILIRUBIN,TOTAL 0.6 MG/DL (0.1-1.0)
[2021-02-03 17:15] LABS: CREATININE SERUM 1.08 MG/DL (0.60-1.30)
[2021-02-03 17:18] LABS: MAGNESIUM 1.8 MG/DL (1.6-2.4)
[2021-02-03] MEDS: RT-ALBUTEROL INHALER HFA (VENTOLIN HFA) 18 GM IH SCH (17:19)
[2021-02-03] MEDS ORDERED: NITROGLYCERIN 0.4 MG SL TABS BTL 25'S SL PRN ×2 (17:45→21:30)
[2021-02-03] MEDS ORDERED: ONDANSETRON 4 MG/2 ML (SDV) Z0FRAN IVP ONE (17:45)
--- NOTE | 2021-02-03 18:09 | Diagnostic Imaging Report ---
INDICATION: Chest pain. COMPARISON STUDY: Chest from three days ago. FINDINGS: Frontal view of the chest demonstrates previous coronary artery bypass graft changes. The heart size is within normal limits. The mild pulmonary congestion has nearly resolved. IMPRESSION: There are postoperative changes to the chest. The mild pulmonary congestion has decreased. Dictated by: Dictated on workstation # [id number]
[2021-02-03 18:27] LABS: INR 0.9 (0.8-1.4); PROTHROMBIN TIME PATIENT 12.3 SEC (12.2-14.7)
[2021-02-03] MEDS ORDERED: morphine INJ 10 MG/ML 1ML (SYR OR VIAL) IVP STA ×2 (18:46→19:28)
[2021-02-03] MEDS ORDERED: CATHETER FLUSH 10 ML SYR IV PRN (19:00)
[2021-02-03] MEDS ORDERED: IOHEXOL 350 MG/ML 100 ML (OMNIPAQUE 350) VIAL IV ONE (19:00)
[2021-02-03] MEDS ORDERED: HOLD METFORMIN - RECEIVED CONTRAST 20 ML VIAL IV SCH (19:00)
[2021-02-03] MEDS ORDERED: NS 100 ML (IVPB) BAG IV ONE (19:00)
--- NOTE | 2021-02-03 19:00 | ED Chest Pain ---
General Chief Complaint: Chest Pain Stated Complaint: CHEST PAIN Nursing Triage Note: PT PRESENTS TO ED FOR CHEST PAIN THAT STARTED AROUND 1530. PT STATES THE PAIN RADIATES DOWN HER LEFT ARM, PAIN IS DESCRIBED PRESSURE. PT STATES SHE TOOK A NITRO AROUND 1608 AND AGAIN AT 1618 WITH NO IMPROVEMENT. PT ALSO MENTIONS FEELING TIRED ALL THE TIME, THIS WAS NOTICED YESTERDAY. PT BROUGHT TO ROOM 01 IN WHEELCHAIR THEN MOVED TO ROOM 07 IN WC. Nursing Sepsis Screen: No Definite Risk Source: patient, old records Exam Limitations: no limitations (DORA ROMERO MD) History of Present Illness Date Seen by Provider: Feb 03, 2021 Time Seen by Provider: 16:35 Initial Comments This 45-year-old woman presents to the emergency room with chest pain described as a pressure that started middle of this afternoon. Pain is worse with inspiration and she is noted to have some wheezing. She had a similar episode January 31 for which she was assessed in the ER. She was ultimately discharged home. Covid test was not performed at that time. She denies any cough or fever but does have pain with inspiration. She is an active smoker. (DORA ROMERO MD) Allergies and Home Medications Allergies Coded Allergies: Penicillins (Verified Allergy, Unknown, 11/05/06) Sulfa (Sulfonamide Antibiotics) (Verified Allergy, Unknown, 11/05/06) naproxen (Verified Allergy, Unknown, HIVES, NAUSEA--can take ibuprofen, 06/01/20) Home Medications Aripiprazole 15 Mg Tablet, 7.5 MG PO DAILY, (Reported) TAKES OF A 15MG TAB Aspirin 81 Mg Tablet.dr, 81 MG PO DAILY Prescribed by: MITCHELL LEBRON on 04/24/20 1014 Atorvastatin Calcium 80 Mg Tablet, 80 MG PO HS Prescribed by: MITCHELL LEBRON on 04/24/20 1231 Hydrocodone/Acetaminophen 1 Each Tablet, 1 EACH PO Q4-6HR PRN for PAIN-MODERATE Prescribed by: TAMRA CABALLERO on 06/01/20 1520 Hydroxyzine HCl 25 Mg Tablet, 25 MG PO BID PRN for ANXIETY, (Reported) Ibuprofen 200 Mg Tablet, 400 MG PO Q8H PRN for PAIN-MILD (1-4), (Reported) Isosorbide Mononitrate 30 Mg Tab.er.24h, 30 MG PO DAILY Prescribed by: RAINE HERNANDEZ on 05/09/20 0849 Metformin HCl 500 Mg Tablet, 500 MG PO DAILY, (Reported) Metoprolol Tartrate 25 Mg Tablet, 12.5 MG PO DAILY, (Reported) TAKES OF A 25MG TAB Sertraline HCl 100 Mg Tablet, 100 MG PO DAILY, (Reported) Ticagrelor 90 Mg Tablet, 90 MG PO BID Prescribed by: MITCHELL LEBRON on 04/24/20 1014 Zolpidem Tartrate 5 Mg Tablet, 5 MG PO HS PRN for SLEEP, (Reported) Patient Home Medication List Home Medication List Reviewed: Yes (DORA ROMERO MD) Review of Systems Review of Systems Constitutional: no symptoms reported EENTM: No Symptoms Reported Respiratory: See HPI Cardiovascular: See HPI Gastrointestinal: No Symptoms Reported Genitourinary: No Symptoms Reported Musculoskeletal: no symptoms reported Skin: no symptoms reported Psychiatric/Neurological: No Symptoms Reported Endocrine: No Symptoms Reported Hematologic/Lymphatic: No Symptoms Reported (DORA ROMERO MD) Past Fzlbsjl-Vpmxhe-Geesbg Hx Past Med/Social Hx: Reviewed and Corrections made (DORA ROMERO MD) Patient Social History Alcohol Use: Denies Use Smoking Status: Current Everyday Smoker Type Used: Electronic/Vapor Former Smoker, Quit: Apr 22, 2020 2nd Hand Smoke Exposure: No Recent Infectious Disease Expo: No Recent Hopitalizations: No (DORA ROMERO MD) Immunizations Up To Date Tetanus Booster (TDap): More than 5yrs Date of Pneumonia Vaccine: Jun 20, 2013 Date of Influenza Vaccine: May 24, 2020 (DORA ROMERO MD) Seasonal Allergies Seasonal Allergies: No (DORA ROMERO MD) Past Medical History Surgeries: No Abdominal, Adenoidectomy, Cardiac, CABG, Coronary Stent, Ear Surgery, Gallbladder, Orthopedic, Tonsillectomy Respiratory: Yes Asthma, Chronic Bronchitis, COPD Cardiac: Yes (OPEN HEART SURGERY 2009) Coronary Artery Disease Neurological: No Headaches /Migraines, Seizure Disorder Reproductive Disorders: Yes (HX CERVICAL CANCER) Sexually Transmitted Disease: Yes (HERPES) Genitourinary: No Gastrointestinal: Yes Gastroesophageal Reflux, Esophagitis, Hiatal Hernia, Gall Bladder Disease Musculoskeletal: No Arthritis Endocrine: No Hypothyroidsim, Diabetes, Non-Insulin dep HEENT: Yes Chronic Ear Infection Hearing Impairment: Hard of Hearing Cancer: No Cervical Did You Recieve Any Treatments: Yes What Type of Treatment Did You: Surgical Intervention Psychosocial: Yes Sleep Difficulties, Anxiety, Suicide Attempts, Depression Integumentary: No Blood Disorders: No Adverse Reaction/Blood Tranf: No (DORA ROMERO MD) Family Medical History PSH: -CARDIAC CATHS--MULTIPLE STENTS TO RCA AND STENT TO CIRCUMFLEX. LAST CATH 04/23/20 WITH STENT X 1 TO RCA -CABG IN 2009 -FABRICE FUNDOPLICATION (DORA ROMERO MD) ADDITIONAL PAST MEDICAL AND PROCEDURAL HISTORY: -PT HAD NSTEMI AND WAS ADMITTED 04/22/20-04/24/20, HAD CARDIAC CATH 04/23/20 AND HAD STENT X 1 TO RCA -PT HAS PREVIOUSLY HAD A CABG IN 2009, MULTIPLE STENTS TO RCA, AND STENT TO CIRCUMFLEX IN THE PAST. -CARDIAC CATH 05/08/[address] 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 Patent stents in the right coronary artery was small vessel disease distally 2. 50 percent proximal stenosis in the vein graft to the diagonal artery, small vessel disease distally 3. Mild to moderate disease in the left coronary system, nonobstructive disease 4. Elevated left ventricular end-diastolic pressure DISCUSSION AND RECOMMENDATION: Coronary anatomy has not changed significantly compared to the study of April 24, 2020. Elevated troponin is probably due to small vessel disease, conservative management is recommended (HEATH BILLY DO) Physical Exam Vital Signs Vital Signs - First Documented 02/03/21 16:32 Temp 36.8 Pulse 97 Resp 14 B/P (MAP) 113/92 (99) Pulse Ox 97 O2 Delivery Room Air (HEATH BILLY DO) Vital Signs Capillary Refill : Less Than 3 Seconds (DORA ROMERO MD) Height, Weight, BMI Height: 5'8.00" Weight: 189lbs. 0.0oz. 85.745560em; 32.00 BMI Method:Stated General Appearance: WD/WN, Mild Distress HEENT: PERRL/EOMI, Normal ENT Inspection Neck: Normal Inspection; No JVD Respiratory: No Accessory Muscle Use, No Respiratory Distress; No Crackles, No Rhonci; Wheezing Cardiovascular: Regular Rate, Rhythm, No Edema, No Murmur, Normal Peripheral Pulses Gastrointestinal: Normal Bowel Sounds, Non Tender, Soft Extremity: Normal Inspection, Non Tender, No Calf Tenderness, No Pedal Edema Neurologic/Psychiatric: Alert, Oriented x3, No Motor/Sensory Deficits, Normal Mood/Affect, speedometer mechanic II-XII Norm as Tested Skin: Normal Color, Warm/Dry (DORA ROMERO MD) Progress/Results/Core Measures Results/Orders Lab Results Laboratory Tests Test 02/03/21 16:44 02/03/21 18:09 Range/Units White Blood Count 8.4 4.3-11.0 10^3/uL Red Blood Count 4.59 3.80-5.11 10^6/uL Hemoglobin 14.8 11.5-16.0 g/dL Hematocrit 42 35-52 % Mean Corpuscular Volume 92 80-99 fL Mean Corpuscular Hemoglobin 32 25-34 pg Mean Corpuscular Hemoglobin Concent 35 32-36 g/dL Red Cell Distribution Width 12.2 10.0-14.5 % Platelet Count 296 130-400 10^3/uL Mean Platelet Volume 10.5 9.0-12.2 fL Immature Granulocyte % (Auto) 0 % Neutrophils (%) (Auto) 45 42-75 % Lymphocytes (%) (Auto) 42 12-44 % Monocytes (%) (Auto) 7 0-12 % Eosinophils (%) (Auto) 6 0-10 % Basophils (%) (Auto) 1 0-10 % Neutrophils # (Auto) 3.7 1.8-7.8 10^3/uL Lymphocytes # (Auto) 3.5 1.0-4.0 10^3/uL Monocytes # (Auto) 0.6 0.0-1.0 10^3/uL Eosinophils # (Auto) 0.5 H 0.0-0.3 10^3/uL Basophils # (Auto) 0.1 0.0-0.1 10^3/uL Immature Granulocyte # (Auto) 0.0 0.0-0.1 10^3/uL Sodium Level 137 135-145 MMOL/L Potassium Level 3.9 3.6-5.0 MMOL/L Chloride Level 104 98-107 MMOL/L Carbon Dioxide Level 24 21-32 MMOL/L Anion Gap 9 5-14 MMOL/L Blood Urea Nitrogen 13 7-18 MG/DL Creatinine 1.08 0.60-1.30 MG/DL Estimat Glomerular Filtration Rate 54 BUN/Creatinine Ratio 12 Glucose Level 130 H 70-105 MG/DL Calcium Level 9.4 8.5-10.1 MG/DL Corrected Calcium 9.4 8.5-10.1 MG/DL Magnesium Level 1.8 1.6-2.4 MG/DL Total Bilirubin 0.6 0.1-1.0 MG/DL Aspartate Amino Transf (AST/SGOT) 15 5-34 U/L Alanine Aminotransferase (ALT/SGPT) 18 0-55 U/L Alkaline Phosphatase 110 40-136 U/L Myoglobin 23.6 10.0-92.0 NG/ML Troponin I < 0.028 <0.028 NG/ML B-Type Natriuretic Peptide 42.9 <100.0 PG/ML Total Protein 7.3 6.4-8.2 GM/DL Albumin 4.0 3.2-4.5 GM/DL Influenza Type A (RT-PCR) Not Detected Not Detecte Influenza Type B (RT-PCR) Not Detected Not Detecte SARS-CoV-2 RNA (RT-PCR) Not Detected Not Detecte Prothrombin Time 12.3 12.2-14.7 SEC INR Comment 0.9 0.8-1.4 Activated Partial Thromboplast Time 27 24-35 SEC D-Dimer 1.25 H 0.00-0.49 UG/ML (MARQUISE,HEATH K ) My Orders Orders - HEATH BILLY DO Morphine Injection (Morphine Injection (02/03/21 19:28) (MARQUISEHEATH Susan DAVILA) Medications Given in ED Current Medications Medications Dose Ordered Sig/Sara Route Start Time Stop Time Status Last Admin Dose Admin Aspirin 324 mg ONCE ONCE PO 02/03/21 16:45 02/03/21 16:46 DC 02/03/21 16:42 324 MG Iohexol 100 ml ONCE ONCE IV 02/03/21 19:00 02/03/21 19:01 DC 02/03/21 19:01 81 ML Nitroglycerin 0.4 mg UD PRN SL 02/03/21 17:45 02/03/21 21:28 DC 02/03/21 17:50 0.4 MG Ondansetron HCl 8 mg ONCE ONCE IVP 02/03/21 17:45 02/03/21 17:46 DC 02/03/21 17:46 8 MG Sodium Chloride 10 ml NEEDED PRN IV 02/03/21 19:00 02/03/21 19:01 10 ML Sodium Chloride 100 ml ONCE ONCE IV 02/03/21 19:00 02/03/21 19:01 DC 02/03/21 19:02 80 ML (HEATH BILLY DO) Vital Signs/I&O 02/03/21 02/03/21 16:32 16:32 Temp 36.8 Pulse 97 Resp 14 B/P (MAP) 113/92 (99) Pulse Ox 97 O2 Delivery Room Air Room Air (HEATH BILLY DO) Blood Pressure Mean: 99 Progress Progress Note : Time: 18:56 Progress Note Chart was reviewed and chest pain work-up was pursued. Patient had 2 nitroglycerin at home. She received a third nitroglycerin here. This did not resolve her pain. D-dimer returned elevated. CT angiogram of the chest is pending. Morphine 2 mg IV will be given for pain control in the meantime. During chart review it was noted she had a cardiac catheterization last April in which no interventions were performed. There were no critical stenoses identified although coronary artery disease and graft disease was noted. Care of this patient is being transitioned to Dr. Billy at this time. Patient was given an albuterol inhaler and did note some improvement in her breathing with it. (DORA ROMERO MD) Progress Note : Progress Note ASSSUMED CARE FROM DR. ROMERO AT SHIFT CHANGE. CT PENDING. PT REPORTS THAT CHEST PAIN IS BETTER, BUT NOT COMPLETELY GONE--"STILL HAVE A LITTLE BIT OF PAIN" . ADDITIONAL PAIN MEDICATION ORDERED, WITH IMPROVEMENT I PAIN NO DETERIORATION IN PT'S CONDITION DURING ER STAY (HEATH BILLY DO) Initial ECG Impression Date: Feb 03, 2021 Initial ECG Impression Time: 16:42 Initial ECG Rate: 95 Initial ECG Rhythm: Normal Sinus Initial ECG Intervals: Normal Initial ECG Impression: Normal Comment sinus rhythm with no ST elevation or depression. No abnormal intervals or axis deviation. (DORA ROMERO MD) Diagnostic Imaging Diagonstic Imaging: Xray Plain Films/CT/US/NM/MRI: chest Comments NAME: [facility] REC#: [id number] PT STATUS: REG ER : 1975 PHYSICIAN: TAMRA CABALLERO NON LICENSED NUCLEAR EQUIPMENT OPERATOR ADMIT DATE: 02/03/21/ER Signed Date of Exam:02/03/21 CHEST 1 VIEW, AP/PA ONLY INDICATION: Chest pain. COMPARISON STUDY: Chest from three days ago. FINDINGS: Frontal view of the chest demonstrates previous coronary artery bypass graft changes. The heart size is within normal limits. The mild pulmonary congestion has nearly resolved. IMPRESSION: There are postoperative changes to the chest. The mild pulmonary congestion has decreased. Dictated by: Dictated on workstation # [id number] Dict: 02/03/21 180 Trans: 02/03/211813 AS6 [id number] Interpreted by: LORELEI BURCIAGA MD Electronically signed by: LORELEI BURCIAGA MD 02/03/211813 (DROA ROMERO MD) Comments CT CHEST ANGIOGRAM--PER RADIOLOGIST REPORT AT 1923 FINDINGS: CTA of the chest demonstrates no pulmonary emboli. No aortic dissection or aneurysm is present. Some calcifications are seen within the coronary arteries. The heart size is normal. Moderate size hiatal hernia is present. Mild groundglass haziness is present in the upper lungs. Previous coronary artery bypass graft changes are present. The visualized portions of the abdomen appear unremarkable. Gallbladder is absent. IMPRESSION: 1. No pulmonary embolus is present. 2. Coronary artery disease with previous bypass surgery. 3. Moderate hiatal hernia is present. 4. There are mild patchy and groundglass infiltrates in the lung apices. This is nonspecific and could be due to a pneumonitis. Reviewed: Reviewed by Me (HEATH BILLY DO) Departure Communication (Admissions) 1926--SPOKE WITH DR. AUSTIN, HOSPITALIST, ACCEPTS PT FOR ADMIT, NO ADDITIONAL RECOMMENDATIONS AT THIS TIME 1928--SPOKE WITH DR. ARGUELLES FOR CARDIOLOGY CONSULT. NO ADDITIONAL RECOMMENDATIONS AT THIS TIME (HEATH BILLY DO) Impression Primary Impression: Chest pain Qualified Codes: R07.9 - Chest pain, unspecified Additional Impressions: Pneumonitis NIDDM COPD (chronic obstructive pulmonary disease) HX OF COPD WITH CABG AND MULTIPLE STENTS Disposition: ADMITTED INPATIENT Condition: Improved Admissions Decision to Admit Reason: Admit from ER (General) Decision to Admit/Date: Feb 03, 2021 Time/Decision to Admit Time: 19:25 (HEATH BILLY DO) Departure-Patient Inst. Referrals: EDWAR LOBO DO (PCP/Family) Primary Care Physician DORA ROMERO MD Feb 03, 2021 18:59 HEATH BILLY DO Feb 03, 2021 19:14
--- NOTE | 2021-02-03 19:22 | Diagnostic Imaging Report ---
PROCEDURE: CT angiography of the chest with contrast. TECHNIQUE: Auto Exposure Controls were utilized during the CT exam to meet ALARA standards for radiation dose reduction. INDICATION: Pulmonary emboli suspected, cervical cancer, chest pain. FINDINGS: CTA of the chest demonstrates no pulmonary emboli. No aortic dissection or aneurysm is present. Some calcifications are seen within the coronary arteries. The heart size is normal. Moderate size hiatal hernia is present. Mild groundglass haziness is present in the upper lungs. Previous coronary artery bypass graft changes are present. The visualized portions of the abdomen appear unremarkable. Gallbladder is absent. IMPRESSION: 1. No pulmonary embolus is present. 2. Coronary artery disease with previous bypass surgery. 3. Moderate hiatal hernia is present. 4. There are mild patchy and groundglass infiltrates in the lung apices. This is nonspecific and could be due to a pneumonitis. Dictated by: Dictated on workstation # [id number]
[2021-02-03] MEDS ORDERED: cefTRIAXone 1,000 MG in WATER (STERILE) FOR INJECTION 10 ML IV ONE (19:45)
[2021-02-03] MEDS ORDERED: AZITHROMYCIN INJECTION 500 MG in NS (IVPB) 250 ML IV ONE (19:45)
[2021-02-03] MEDS ORDERED: ENOXAPARIN 100 MG/1 ML (LOVENOX) SYR SC ONE (19:45)
[2021-02-03 20:28] LABS: BILIRUBIN,URINE NEGATIVE (NEGATIVE); CLARITY,URINE CLEAR; COLOR,URINE YELLOW; GLUCOSE, URINE (UA) NEGATIVE (NEGATIVE); KETONES,URINE NEGATIVE (NEGATIVE); LEUKOCYTE ESTERASE ,URINE 1+ (NEGATIVE); NITRITE,URINE POSITIVE (NEGATIVE); PROTEIN,URINE NEGATIVE (NEGATIVE)
[2021-02-03 20:37] LABS: BACTERIA,URINE MODERATE /HPF; RBC,URINE RARE /HPF
[2021-02-03 20:38] LABS: AMPHETAMINE SCREEN, URINE NEGATIVE (NEGATIVE); BENZODIAZEPINES SCREEN URINE NEGATIVE (NEGATIVE); CANNABINOID SCREEN, URINE NEGATIVE (NEGATIVE); COCAINE SCREEN URINE NEGATIVE (NEGATIVE); METHAMPHETAMINE SCREEN URINE S NEGATIVE (NEGATIVE); OPIATE SCREEN URINE POSITIVE (NEGATIVE)
[2021-02-03 20:39] LABS: BARBITURATE SCREEN URINE NEGATIVE (NEGATIVE); METHADONE STAT NEGATIVE (NEGATIVE); OXYCODONE STAT NEGATIVE (NEGATIVE); PROPOXYPHENE STAT NEGATIVE (NEGATIVE); TRICYCLIC ANTIDEPRESSANTS SCRE NEGATIVE (NEGATIVE)
[2021-02-03 20:54] VITALS: BP 110/66
[2021-02-03] MEDS ORDERED: ACETAMINOPHEN 500 MG TAB (TYLENOL) PO PRN (21:30)
[2021-02-03] MEDS ORDERED: ONDANSETRON 4 MG/2 ML (SDV) Z0FRAN IVP PRN (21:30)
[2021-02-03] MEDS: morphine INJ 4 MG/ML 1 ML (VIAL/SYRINGE) IV PRN (21:54)
[2021-02-03 23:03] VITALS: BP 102/73
[2021-02-04] MEDS: RT-ALBUTEROL INHALER HFA (VENTOLIN HFA) 18 GM IH SCH ×3 (03:18→10:02)
[2021-02-04 03:49] LABS: BASOPHILS # (AUTO) 0.1 10^3/uL (0.0-0.1); BASOPHILS % (AUTO) 1 % (0-10); EOSINOPHILS # (AUTO) 0.4 10^3/uL (0.0-0.3); EOSINOPHILS % (AUTO) 6 % (0-10); HEMATOCRIT 39 % (35-52); HEMOGLOBIN 13.2 g/dL (11.5-16.0); LYMPHOCYTES # (AUTO) 3.9 10^3/uL (1.0-4.0); LYMPHOCYTES % (AUTO) 54 % (12-44); MEAN CORPUSCULAR HEMOGLOBIN 32 pg (25-34); MEAN CORPUSCULAR HGB CONC 34 g/dL (32-36); MEAN CORPUSCULAR VOLUME 95 fL (80-99); MEAN PLATELET VOLUME 10.8 fL (9.0-12.2); MONOCYTES # (AUTO) 0.5 10^3/uL (0.0-1.0); MONOCYTES % (AUTO) 7 % (0-12); NEUTROPHILS # (AUTO) 2.4 10^3/uL (1.8-7.8); NEUTROPHILS % (AUTO) 33 % (42-75); PLATELET COUNT 247 10^3/uL (130-400); WHITE BLOOD COUNT 7.2 10^3/uL (4.3-11.0)
[2021-02-04 04:00] VITALS: BP 95/62
[2021-02-04 04:05] LABS: ALBUMIN 3.5 GM/DL (3.2-4.5); CHLORIDE 106 MMOL/L (98-107); POTASSIUM 4.1 MMOL/L (3.6-5.0); SODIUM 138 MMOL/L (135-145)
[2021-02-04 04:06] LABS: CALCIUM 8.9 MG/DL (8.5-10.1)
[2021-02-04 04:07] LABS: TRIGLYCERIDES 262 MG/DL (<150); VLDL CHOLESTEROL 52 MG/DL (5-40)
[2021-02-04 04:08] LABS: GLUCOSE 127 MG/DL (70-105); TOTAL PROTEIN 6.2 GM/DL (6.4-8.2)
[2021-02-04 04:09] LABS: CARBON DIOXIDE 23 MMOL/L (21-32)
[2021-02-04 04:10] LABS: BILIRUBIN,TOTAL 0.5 MG/DL (0.1-1.0)
[2021-02-04 04:11] LABS: ALKALINE PHOSPHATASE 94 U/L (40-136); CREATININE SERUM 0.92 MG/DL (0.60-1.30); GFR ESTIMATED > 60
[2021-02-04 04:12] LABS: CHOLESTEROL 249 MG/DL (< 200)
[2021-02-04 04:13] LABS: BUN/CREATININE RATIO 14
[2021-02-04 04:14] LABS: HDL CHOLESTEROL 36 MG/DL (40-60)
[2021-02-04 04:15] LABS: ALANINE AMINOTRANSFERASE 15 U/L (0-55)
[2021-02-04] MEDS: inSUlin ASPART (NovoLOG) 1 UNIT/0.01 ML (CHARGE PER UNIT) SC SCH ×2 (05:14→12:00)
[2021-02-04] MEDS ORDERED: inSUlin ASPART (NovoLOG) 1 UNIT/0.01 ML (CHARGE PER UNIT) SC SCH (06:00)
[2021-02-04] MEDS: morphine INJ 4 MG/ML 1 ML (VIAL/SYRINGE) IV PRN ×2 (06:14→10:05)
[2021-02-04 08:00] VITALS: BP 94/62
[2021-02-04] MEDS ORDERED: ASPIRIN E.C. 81 MG (ECOTRIN) TAB PO SCH (09:00)
[2021-02-04] MEDS ORDERED: ENOXAPARIN 100 MG/1 ML (LOVENOX) SYR SC SCH (09:00)
--- NOTE | 2021-02-04 09:18 | Short Stay Summary-Hospitalist ---
History of Present Illness HPI/Chief Complaint Pt is a 45yoCF with a PMH of HTN, CAD s/p CABG, COPD, hypothyroidism, active tobacco abuse who presented to the ER due to chest tightness and SOB for a few days. She was seen in the ER on Sunday for similar issues and was able to be discharged home. She continued to feel poorly and just had no energy. She was somewhat dizzy as well. She decided to seek evaluation again when it worsened some in the afternoon yesterday. Troponin remained negative and CTA revealed no PE but some groundglass opacities in the lung apices. She has not been COVID vaccinated. She was swabbed for COVID and negative. She repors feeling better this morning and has no further chest pain. Source: patient Date Seen 02/04/21 Time Seen by a Provider: 09:10 Attending Physician Wilder Garcia MD PCP Willem Chamorro DO Referring Physician Date of Admission Feb 03, 2021 at 19:30 Home Medications & Allergies Home Medications Reviewed patient Home Medication Reconciliation performed by pharmacy medication reconciliations operator technician and/or nursing. Patients Allergies have been reviewed. Allergies Allergies Coded Allergies Penicillins (Verified Allergy, Unknown, 11/05/06) Sulfa (Sulfonamide Antibiotics) (Verified Allergy, Unknown, 11/05/06) naproxen (Verified Allergy, Unknown, HIVES, NAUSEA--can take ibuprofen, 06/01/20) Past Rbctfwg-Utqete-Btnddm Hx Patient Social History Tobacco Use?: Yes Tobacco type used: Cigarettes Smoking Status: Current Everyday Smoker Pt feels they are or have been: No Immunizations Up To Date Date of Influenza Vaccine: May 24, 2020 Date of Pneumonia Vaccine: Jun 20, 2013 Seasonal Allergies Seasonal Allergies: No Current Status Advance Directives: No Communicates: Verbally Primary Language: Stateless Preferred Spoken Language: Stateless Is interpretation needed?: No Past Medical History Surgeries: Abdominal, Adenoidectomy, Cardiac, CABG, Coronary Stent, Ear Surgery, Gallbladder, Orthopedic, Tonsillectomy Asthma, Chronic Bronchitis, COPD Coronary Artery Disease Headaches /Migraines, Seizure Disorder Sexually Transmitted Disease: Yes (HERPES) Gastroesophageal Reflux, Esophagitis, Hiatal Hernia, Gall Bladder Disease Arthritis Hypothyroidsim, Diabetes, Non-Insulin dep Chronic Ear Infection Hearing Impairment: Hard of Hearing Cervical Did You Recieve Any Treatments: Yes What Type of Treatment Did You: Surgical Intervention Sleep Difficulties, Anxiety, Suicide Attempts, Depression Blood Disorders: No Adverse Reaction/Blood Tranf: No See Problem List Family Medical History Reviewed Nursing Family Hx ADDITIONAL PAST MEDICAL AND PROCEDURAL HISTORY: -PT HAD NSTEMI AND WAS ADMITTED 04/22/20-04/24/20, HAD CARDIAC CATH 04/23/20 AND HAD STENT X 1 TO RCA -PT HAS PREVIOUSLY HAD A CABG IN 2009, MULTIPLE STENTS TO RCA, AND STENT TO CIRCUMFLEX IN THE PAST. -CARDIAC CATH 05/08/[address] 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 Patent stents in the right coronary artery was small vessel disease distally 2. 50 percent proximal stenosis in the vein graft to the diagonal artery, small vessel disease distally 3. Mild to moderate disease in the left coronary system, nonobstructive disease 4. Elevated left ventricular end-diastolic pressure DISCUSSION AND RECOMMENDATION: Coronary anatomy has not changed significantly compared to the study of April 24, 2020. Elevated troponin is probably due to small vessel disease, conservative management is recommended Review of Systems Constitutional: No chills; diaphoresis; No fever; malaise; No weakness EENTM: no symptoms reported Respiratory: No cough, No dyspnea on exertion, No orthopnea; short of breath Cardiovascular: chest pain; No edema; Hx of Intervention; No palpitations Gastrointestinal: No abdominal pain, No constipation, No diarrhea, No nausea, No vomiting Genitourinary: No dysuria, No frequency Musculoskeletal: no symptoms reported Skin: no symptoms reported Psychiatric/Neurological: No Symptoms Reported Physical Exam Physical Exam Vital Signs Vital Signs - First Documented 02/03/21 16:32 Temp 36.8 Pulse 97 Resp 14 B/P (MAP) 113/92 (99) Pulse Ox 97 O2 Delivery Room Air Capillary Refill : Less Than 3 Seconds Height, Weight, BMI Height: 5'8.00" Weight: 189lbs. 0.0oz. 85.562040nn; 35.12 BMI Method:Stated General Appearance: WD/WN, Chronically ill, Obese HEENT: PERRL/EOMI, Moist Mucous Membranes; No Scleral Icterus (L), No Scleral Icterus (R) Neck: Full Range of Motion, Normal Inspection Respiratory: Lungs Clear, No Accessory Muscle Use, No Respiratory Distress Cardiovascular: Regular Rate, Rhythm, No JVD, No Murmur Gastrointestinal: Normal Bowel Sounds, Non Tender, Soft Extremity: Normal Capillary Refill, Non Tender, No Pedal Edema Neurologic/Psychiatric: Alert, Oriented x3, Normal Mood/Affect; No Aphasia, No Facial Droop Skin: Normal Color, Warm/Dry Results Results/Procedures Labs Laboratory Tests 02/03/21 16:44 02/04/21 03:10 Patient resulted labs reviewed. Imaging: Reviewed Imaging Report [facility] [place] [place] NAME: WAN DA SILVA Ren [facility] REC#: [id number] PT STATUS: REG ER : 1975 PHYSICIAN: TAMRA CABALLERO APRN ADMIT DATE: 02/03/21/ER Signed Date of Exam:02/03/21 CHEST 1 VIEW, AP/PA ONLY INDICATION: Chest pain. COMPARISON STUDY: Chest from three days ago. FINDINGS: Frontal view of the chest demonstrates previous coronary artery bypass graft changes. The heart size is within normal limits. The mild pulmonary congestion has nearly resolved. IMPRESSION: There are postoperative changes to the chest. The mild pulmonary congestion has decreased. Dictated by: Dictated on workstation # [id number] Dict: 02/03/211802 Trans: 02/03/211813 AS6 [id number] Interpreted by: LORELEI BURCIAGA MD Electronically signed by: LORELEI BURCIAGA MD 02/03/211813 [facility] [place] NAME: WAN DA SILVA [facility] REC#: [id number] PT STATUS: REG ER : 1975 PHYSICIAN: DORA ROMERO MD ADMIT DATE: 02/03/21/ER Signed Date of Exam:02/03/21 CT ANGIO CHEST W PROCEDURE: CT angiography of the chest with contrast. TECHNIQUE: Auto Exposure Controls were utilized during the CT exam to meet ALARA standards for radiation dose reduction. INDICATION: Pulmonary emboli suspected, cervical cancer, chest pain. FINDINGS: CTA of the chest demonstrates no pulmonary emboli. No aortic dissection or aneurysm is present. Some calcifications are seen within the coronary arteries. The heart size is normal. Moderate size hiatal hernia is present. Mild groundglass haziness is present in the upper lungs. Previous coronary artery bypass graft changes are present. The visualized portions of the abdomen appear unremarkable. Gallbladder is absent. IMPRESSION: 1. No pulmonary embolus is present. 2. Coronary artery disease with previous bypass surgery. 3. Moderate hiatal hernia is present. 4. There are mild patchy and groundglass infiltrates in the lung apices. This is nonspecific and could be due to a pneumonitis. Dictated by: Dictated on workstation # [id number] Dict: 02/03/211911 Trans: 02/03/211927 [facility] [id number] Interpreted by: LORELEI BURCIAGA MD Electronically signed by: LORELEI BURCIAGA MD 02/03/211927 Short Stay Diagnosis Discharge Diagnosis-Short Stay Admission Diagnosis CAP Final Discharge Diagnosis CAP Conclusion Plan CAP mild ground glass opacities on CT Continue on abx Not on oxygen Chest pain CAD s/p CABG Troponin negative x2 Cardiology consulted, appreciate recs On tele Symptoms seem atypical in nature Tobacco abuse Recommend cessation Pt states she's not ready Dispo: DC home if cardiology ok Clinical Quality Measures AMI/AHF: ASA po Prior to arrival: No (none prior to arrival) MITCHELL LEBRON MD Feb 04, 2021 09:18
--- NOTE | 2021-02-04 09:54 | Consultation-Cardiology ---
HPI-Cardiology Cardiology Consultation: Date of Consultation 02/04/21 Time Seen by a Provider: 09:50 Date of Admission 02-03-21 Attending Physician Wilder Garcia MD Admitting Physician Willem Chamorro DO Consulting Physician Karie Aguilar MD HPI: Chief Complaint: CP and SOB Ms. Da Silva is a 45 yr old female admitted to [facility] from the ED with increasing SOB over the last few days. She reports she has had constant chest pain across her chest for several days. Nothing makes it better, but nothing makes it worse. She reports she has chronic chest pain and this does not feel any different than what she has had before. She denies any n/v/d. No c/o palpitations. She does feel her chest pain is better today. She feels her SOB is better today. No c/o LE swelling. She continues to smoke cigs. She states she has been compliant with her medications. Review of Systems-Cardiology Review of Systems Constitutional: No chills, No fever; tiredness Eyes: No vision change Ears/Nose/Throat: No epistaxis, No recent hearing loss Respiratory: As described under HPI Cardiovascular: As described under HPI Gastrointestinal: No diarrhea, No nausea, No vomiting Genitourinary: no symptoms reported Musculoskeletal: no symptoms reported Skin: No rash on exposed areas, No ulcerations on exposed areas Psychiatric/Neurological: anxiety; No depression, No seizure, No focal weakness, No syncope [id number] Hx Patient Social History Smoking Status: Current Everyday Smoker 2nd Hand Smoke Exposure: No Have you traveled recently?: No Pt feels they are or have been: No Tobacco type used: Cigarettes Immunizations Up To Date Tetanus Booster (TDap): More than 5yrs Date of Pneumonia Vaccine: Jun 20, 2013 Date of Influenza Vaccine: May 24, 2020 Past Medical History PMH As described under Assessment. Family Medical History Family Medical History: Has family h/o of early CAD Allergies and Home Medications Allergies Coded Allergies: Penicillins (Verified Allergy, Unknown, 11/05/06) Sulfa (Sulfonamide Antibiotics) (Verified Allergy, Unknown, 11/05/06) naproxen (Verified Allergy, Unknown, HIVES, NAUSEA--can take ibuprofen, 06/01/20) Home Medications Aripiprazole 15 Mg Tablet, 7.5 MG PO DAILY, (Reported) LAST FILLED 11-15-2020 #15/30 TAKES OF A 15MG TAB Last Action: Reviewed Aspirin 81 Mg Tab.chew, 81 MG PO ONCE Prescribed by: DAVID ERNST on 02/04/21 1017 Atorvastatin Calcium 80 Mg Tablet, 80 MG PO DAILY, (Reported) LAST FILLED 11-15-2020 # Last Action: Reviewed Azithromycin 250 Mg Tablet, 250 MG PO DAILY Prescribed by: MITCHELL IVY on 02/04/21 1135 Cephalexin 500 Mg Tablet, 500 MG PO BID Prescribed by: MITCHELL IVY on 02/04/21 1135 Hydroxyzine HCl 25 Mg Tablet, 25 MG PO BID PRN for ANXIETY, (Reported) Last Action: Reviewed Ibuprofen 200 Mg Tablet, 400 MG PO Q8H PRN for PAIN-MILD (1-4), (Reported) Last Action: Reviewed Levothyroxine Sodium 100 Mcg Capsule, 100 MCG PO DAILY, (Reported) LAST FILLED 11-15-2020 # Last Action: Reviewed Metoprolol Tartrate 25 Mg Tablet, 12.5 MG PO BID Prescribed by: DAVID ERNST on 02/04/21 1021 Pantoprazole Sodium 40 Mg Tablet.dr, 40 MG PO DAILY Prescribed by: DAVID ERNST on 02/04/21 1021 Sertraline HCl 100 Mg Tablet, 100 MG PO DAILY, (Reported) LAST FILLED 11-15-2020 # Last Action: Reviewed Ticagrelor 90 Mg Tablet, 90 MG PO BID Prescribed by: MITCHELL IVY on 04/24/20 1014 Last Action: Reviewed Zolpidem Tartrate 5 Mg Tablet, 5 MG PO HS PRN for SLEEP, (Reported) Last Action: Reviewed Physical Exam-Cardiology Physical Exam Vital Signs/I&O Capillary Refill : Less Than 3 Seconds Constitutional: AAO x 3, well-developed, well-nourished HEENT: hearing is well preserved; No oral hygience is good (poor dentition) Neck: No carotid bruit; carotid pulses are 2 + bilaterally Respiratory: No accessory muscle use, No respiratory distress; chest expansion is symmetric, chest is bilaterally symmetric, rhonchi (scattered with prolonged exp phase and occ cough) Cardiovascular: regular rate-rhythm; No JVD; S1 and S2 Gastrointestinal: No tender; soft, round, audible bowel sounds Extremities: no lower extremity edema bilateral Neurologic/Psychiatric: grossly intact (moves all extremities) Skin: No rash on exposed areas, No ulcerations on exposed areas Data Review Labs Microbiology 02/03/21 Urine Culture - Final, Complete Gram Negative Bacillus 2 3 or more isolates Radiology NAME: WAN DA SILVA [facility] REC#: [id number] PT STATUS: REG ER : 1975 PHYSICIAN: TAMRA CABALLERO APRN ADMIT DATE: 02/03/21/ER Signed Date of Exam:02/03/21 CHEST 1 VIEW, AP/PA ONLY INDICATION: Chest pain. COMPARISON STUDY: Chest from three days ago. FINDINGS: Frontal view of the chest demonstrates previous coronary artery bypass graft changes. The heart size is within normal limits. The mild pulmonary congestion has nearly resolved. IMPRESSION: There are postoperative changes to the chest. The mild pulmonary congestion has decreased. Dictated by: Dictated on workstation # [id number] Dict: 02/03/21 180 Trans: 02/03/211813 [id number] Interpreted by: LORELEI BURCIAGA MD Electronically signed by: LORELEI BURCIAGA MD 02/03/211813 NAME: WAN DA SILVA [facility] REC#: [id number] PT STATUS: REG ER : 1975 PHYSICIAN: DORA ROMERO MD ADMIT DATE: 02/03/21/ER Signed Date of Exam:02/03/21 CT ANGIO CHEST W PROCEDURE: CT angiography of the chest with contrast. TECHNIQUE: Auto Exposure Controls were utilized during the CT exam to meet ALARA standards for radiation dose reduction. INDICATION: Pulmonary emboli suspected, cervical cancer, chest pain. FINDINGS: CTA of the chest demonstrates no pulmonary emboli. No aortic dissection or aneurysm is present. Some calcifications are seen within the coronary arteries. The heart size is normal. Moderate size hiatal hernia is present. Mild groundglass haziness is present in the upper lungs. Previous coronary artery bypass graft changes are present. The visualized portions of the abdomen appear unremarkable. Gallbladder is absent. IMPRESSION: 1. No pulmonary embolus is present. 2. Coronary artery disease with previous bypass surgery. 3. Moderate hiatal hernia is present. 4. There are mild patchy and groundglass infiltrates in the lung apices. This is nonspecific and could be due to a pneumonitis. Dictated by: Dictated on workstation # [id number] Dict: 02/03/211911 Trans: 02/03/211927 [id number] Interpreted by: LORELEI BURCIAGA MD Electronically signed by: LORELEI BURCIAGA MD 02/03/211927 ECG Impression ECG Initial ECG Rhythm: Normal Sinus (with old IMI - unchanged from previous) A/P-Cardiology Assessment/Admission Diagnosis Chest pain of undetermined etiology, pleuritic in nature - no evidence of ACS SOB Pneumonia - management per medical services CAD: - H/o CABG in 2009. -Last [place] on 04/23/20 due to mid-vessel, instent occlusion of RCA, treated with ballon angioplasty and stenting with Xience Radha 2.25x33 stent that was post- dilated to 3 mm kevin (Dr Bartlett). LAD had mild instent restenosis in prox LAD, L CX had patent stent, LVEDP 32 mmHg, preserved LV fuctnion, patent SVG to a diag, atretic LOPEZ to LAD. - Last card cath on 05/08/20 (Dr Macias) did not show any change in cor anatomy Echo of 04/23/20: LVEF 55-60%, mild dil LA,mild to mod MR, PASP 25-30 mmHg Chronic chest pain syndrome of undetermined etiology Mod hiatal hernia seen on CT of chest on 02-03-21 Abnormal ECG. ECG of 05/24/20 shows NSR, old IMI Quit smoking in early Apr 2020 Hyperlipidemia being treated with atorvastatin. History of maturity onset diabetes mellitus. Obesity with a body mass index of approx 32 Body habitus and daytime somnolence is suggestive of REINA H/o erosive esophagitis Discussion and Recomendations Chest pain of undetermined etiology - no evidence of ACS - symptoms have improved and she wishes to go home Pneumonia - management per medical services Continue home cardiac medications - she has been on Brilinta 90mg BID following last coronary intervention in April [address] Bartlett Add low dose ASA Add PPI to regimen Advise out pt f/u in 1-2 weeks Advise out pt MPI be done d/t h/o She is taking metoprolol tartrate only daily, increase to BID Further recs will be based on her hospital course We would like to thank Dr. Ivy for this consult Clinical Quality Measures AMI/AHF: ASA po Prior to arrival: No (none prior to arrival) DAVID ERNST Feb 04, 2021 09:54
[2021-02-04] MEDS ORDERED: ASPI81TA64 PO (10:17)
[2021-02-04] MEDS ORDERED: PANT40TA2 PO (10:21)
[2021-02-04] MEDS ORDERED: METO-333 PO (10:21)
[2021-02-04] MEDS ORDERED: ASPIRIN 81 MG CHEW (CHILDREN'S ASA) PO NR (10:30)
[2021-02-04] MEDS ORDERED: PANTOPRAZOLE 40 MG (PROTONIX) TAB PO NR (10:30)
--- NOTE | 2021-02-04 11:05 | Consultation-Cardiology ---
HPI-Cardiology Cardiology Consultation: Date of Consultation 02/04/21 Time Seen by a Provider: 10:15 Date of Admission Attending Physician Wilder Garcia MD Admitting Physician Willem Chamorro DO Consulting Physician JIMENA ROBLES MD, MA, FACP, FACC, FSCAI, CCDS HPI: Chief Complaint: CP and SOB Ms. Champagne is a 45 yr old female admitted to [facility] from the ED with increasing SOB over the last few days. She reports she has had constant chest pain across her chest for several days. Nothing makes it better, but nothing makes it worse. She reports she has chronic chest pain and this does not feel any different than what she has had before. She denies any n/v/d. No c/o palpitations. She does feel her chest pain is better today. She feels her SOB is better today. No c/o LE swelling. She continues to smoke cigs. She states she has been compliant with her medications. Review of Systems-Cardiology Review of Systems Constitutional: No chills, No fever; tiredness Eyes: No vision change Ears/Nose/Throat: No epistaxis, No recent hearing loss Respiratory: As described under HPI Cardiovascular: As described under HPI Gastrointestinal: No diarrhea, No nausea, No vomiting Genitourinary: no symptoms reported Musculoskeletal: no symptoms reported Skin: No rash on exposed areas, No ulcerations on exposed areas Psychiatric/Neurological: anxiety; No depression, No seizure, No focal weakness, No syncope [id number] Hx Patient Social History Smoking Status: Current Everyday Smoker 2nd Hand Smoke Exposure: No Have you traveled recently?: No Pt feels they are or have been: No Tobacco type used: Cigarettes Immunizations Up To Date Tetanus Booster (TDap): More than 5yrs Date of Pneumonia Vaccine: Jun 20, 2013 Date of Influenza Vaccine: May 24, 2020 Past Medical History PMH As described under Assessment. Family Medical History Family Medical History: Has family h/o of early CAD Allergies and Home Medications Allergies Coded Allergies: Penicillins (Verified Allergy, Unknown, 11/05/06) Sulfa (Sulfonamide Antibiotics) (Verified Allergy, Unknown, 11/05/06) naproxen (Verified Allergy, Unknown, HIVES, NAUSEA--can take ibuprofen, 06/01/20) Home Medications Aripiprazole 15 Mg Tablet, 7.5 MG PO DAILY, (Reported) TAKES OF A 15MG TAB Aspirin 81 Mg Tablet.dr, 81 MG PO DAILY Prescribed by: MITCHELL IVY on 04/24/20 1014 Aspirin 81 Mg Tab.chew, 81 MG PO ONCE Prescribed by: DAVID ERNST on 02/04/21 1017 Atorvastatin Calcium 80 Mg Tablet, 80 MG PO HS Prescribed by: MITCHELL IVY on 04/24/20 1231 Hydrocodone/Acetaminophen 1 Each Tablet, 1 EACH PO Q4-6HR PRN for PAIN-MODERATE Prescribed by: TAMRA CABALLERO on 06/01/20 1520 Hydroxyzine HCl 25 Mg Tablet, 25 MG PO BID PRN for ANXIETY, (Reported) Ibuprofen 200 Mg Tablet, 400 MG PO Q8H PRN for PAIN-MILD (1-4), (Reported) Isosorbide Mononitrate 30 Mg Tab.er.24h, 30 MG PO DAILY Prescribed by: RAINE HERNANDEZ on 05/09/20 0849 Metformin HCl 500 Mg Tablet, 500 MG PO DAILY, (Reported) Metoprolol Tartrate 25 Mg Tablet, 12.5 MG PO DAILY, (Reported) TAKES OF A 25MG TAB Metoprolol Tartrate 25 Mg Tablet, 12.5 MG PO BID Prescribed by: DAVID ERNST on 02/04/21 1021 Pantoprazole Sodium 40 Mg Tablet.dr, 40 MG PO DAILY Prescribed by: DAVID ERNST on 02/04/21 1021 Sertraline HCl 100 Mg Tablet, 100 MG PO DAILY, (Reported) Ticagrelor 90 Mg Tablet, 90 MG PO BID Prescribed by: MITCHELL IVY on 04/24/20 1014 Zolpidem Tartrate 5 Mg Tablet, 5 MG PO HS PRN for SLEEP, (Reported) Patient Home Medication List Home Medication List Reviewed: Yes Physical Exam-Cardiology Physical Exam Vital Signs/I&O 02/04/21 02/04/21 02/04/21 02/04/21 01:00 04:00 07:00 08:00 Temp 36.4 36.6 Pulse 70 74 67 73 Resp 14 18 B/P (MAP) 95/62 (73) 94/62 (73) Pulse Ox 95 93 O2 Delivery Room Air Room Air 02/04/21 02/04/21 08:15 10:03 Pulse Ox 95 O2 Delivery Room Air Room Air 02/04/21 00:00 Intake Total 665 ml Balance 665 ml Capillary Refill : Less Than 3 Seconds Constitutional: AAO x 3, well-developed, well-nourished HEENT: hearing is well preserved; No oral hygience is good (poor dentition) Neck: No carotid bruit; carotid pulses are 2 + bilaterally Respiratory: No accessory muscle use, No respiratory distress; chest expansion is symmetric, chest is bilaterally symmetric, rhonchi (scattered with prolonged exp phase and occ cough) Cardiovascular: regular rate-rhythm; No JVD; S1 and S2 Gastrointestinal: No tender; soft, round, audible bowel sounds Extremities: no lower extremity edema bilateral Neurologic/Psychiatric: grossly intact (moves all extremities) Skin: No rash on exposed areas, No ulcerations on exposed areas Data Review Labs Laboratory Tests 02/03/21 16:44: White Blood Count 8.4, Red Blood Count 4.59, Hemoglobin 14.8, Hematocrit 42, Mean Corpuscular Volume 92, Mean Corpuscular Hemoglobin 32, Mean Corpuscular Hemoglobin Concent 35, Red Cell Distribution Width 12.2, Platelet Count 296, Mean Platelet Volume 10.5, Immature Granulocyte % (Auto) 0, Neutrophils (%) (Auto) 45, Lymphocytes (%) (Auto) 42, Monocytes (%) (Auto) 7, Eosinophils (%) (Auto) 6, Basophils (%) (Auto) 1, Neutrophils # (Auto) 3.7, Lymphocytes # (Auto) 3.5, Monocytes # (Auto) 0.6, Eosinophils # (Auto) 0.5H, Basophils # (Auto) 0.1, Immature Granulocyte # (Auto) 0.0, Sodium Level 137, Potassium Level 3.9, Chloride Level 104, Carbon Dioxide Level 24, Anion Gap 9, Blood Urea Nitrogen 13, Creatinine 1.08, Estimat Glomerular Filtration Rate 54, BUN/Creatinine Ratio 12, Glucose Level 130H, Calcium Level 9.4, Corrected Calcium 9.4, Magnesium Level 1.8, Total Bilirubin 0.6, Aspartate Amino Transf (AST/SGOT) 15, Alanine Aminotransferase (ALT/SGPT) 18, Alkaline Phosphatase 110, Myoglobin 23.6, Troponin I < 0.028, B-Type Natriuretic Peptide 42.9, Total Protein 7.3, Albumin 4.0, Influenza Type A (RT-PCR) Not Detected, Influenza Type B (RT-PCR) Not Detected, SARS-CoV-2 RNA (RT-PCR) Not Detected 02/03/21 18:09: Prothrombin Time 12.3, INR Comment 0.9, Activated Partial Thromboplast Time 27, D-Dimer 1.25H 02/03/21 20:18: Urine Color YELLOW, Urine Clarity CLEAR, Urine pH 6.0, Urine Specific [place] 1.010L, Urine Protein NEGATIVE, Urine Glucose (UA) NEGATIVE, Urine Ketones NEGATIVE, Urine Nitrite POSITIVEH, Urine Bilirubin NEGATIVE, Urine Urobilinogen 0.2, Urine Leukocyte Esterase 1+H, Urine RBC (Auto) TRACE-I, Urine RBC RARE, Urine WBC 2-5, Urine Squamous Epithelial Cells 2-5, Urine Crystals NONE, Urine Bacteria MODERATEH, Urine Casts NONE, Urine Mucus NEGATIVE, Urine Culture Indicated YES, Urine Opiates Screen POSITIVEH, Urine Oxycodone Screen NEGATIVE, Urine Methadone Screen NEGATIVE, Urine Propoxyphene Screen NEGATIVE, Urine Barbiturates Screen NEGATIVE, Ur Tricyclic Antidepressants Screen NEGATIVE, Urine Phencyclidine Screen NEGATIVE, Urine Amphetamines Screen NEGATIVE, Urine Methamphetamines Screen NEGATIVE, Urine Benzodiazepines Screen NEGATIVE, Urine Cocaine Screen NEGATIVE, Urine Cannabinoids Screen NEGATIVE 02/03/21 21:00: Glucometer 126H 02/04/21 03:10: White Blood Count 7.2, Red Blood Count 4.12, Hemoglobin 13.2, Hematocrit 39, Mean Corpuscular Volume 95, Mean Corpuscular Hemoglobin 32, Mean Corpuscular Hemoglobin Concent 34, Red Cell Distribution Width 12.5, Platelet Count 247, Mean Platelet Volume 10.8, Immature Granulocyte % (Auto) 0, Neutrophils (%) (Auto) 33L, Lymphocytes (%) (Auto) 54H, Monocytes (%) (Auto) 7, Eosinophils (%) (Auto) 6, Basophils (%) (Auto) 1, Neutrophils # (Auto) 2.4, Lymphocytes # (Auto) 3.9, Monocytes # (Auto) 0.5, Eosinophils # (Auto) 0.4H, Basophils # (Auto) 0.1, Immature Granulocyte # (Auto) 0.0, Sodium Level 138, Potassium Level 4.1, Chloride Level 106, Carbon Dioxide Level 23, Anion Gap 9, Blood Urea Nitrogen 13, Creatinine 0.92, Estimat Glomerular Filtration Rate > 60, BUN/Creatinine Ratio 14, Glucose Level 127H, Calcium Level 8.9, Corrected Calcium 9.3, Total Bi lirubin 0.5, Aspartate Amino Transf (AST/SGOT) 12, Alanine Aminotransferase (ALT/SGPT) 15, Alkaline Phosphatase 94, Troponin I < 0.028, Total Protein 6.2L, Albumin 3.5, Triglycerides Level 262H, Cholesterol Level 249H, LDL Cholesterol Direct 198H, VLDL Cholesterol 52H, HDL Cholesterol 36L 02/04/21 05:10: Procalcitonin 0.03 02/04/21 10:31: Glucometer 114H A/P-Cardiology Assessment/Admission Diagnosis Chest pain of undetermined etiology, pleuritic in nature, probably related to lower resp tract infection that is being managed by Dr Ivy - no evidence of ACS SOB, probably related to COPD from chronic tobacco use (smokes cigs) Pneumonia - management per medical services CAD: - H/o CABG in 2009. -Last [place] on 04/23/20 due to mid-vessel, instent occlusion of RCA, treated with ballon angioplasty and stenting with Xience Radha 2.25x33 stent that was post- dilated to 3 mm kevin (Dr Bartlett). LAD had mild instent restenosis in prox LAD, LCX had patent stent, LVEDP 32 mmHg, preserved LV fuctnion, patent SVG to a diag, atretic LOPEZ to LAD. - Last card cath on 05/08/20 (Dr Macias) did not show any change in cor anatomy Echo of 04/23/20: LVEF 55-60%, mild dil LA,mild to mod MR, PASP 25-30 mmHg Chronic chest pain syndrome of undetermined etiology Mod hiatal hernia seen on CT of chest on 02-03-21 Abnormal ECG. ECG of 05/24/20 shows NSR, old IMI Quit smoking in early Apr 2020 Hyperlipidemia being treated with atorvastatin. History of maturity onset diabetes mellitus. Obesity with a body mass index of approx 32 Body habitus and daytime somnolence is suggestive of REINA H/o erosive esophagitis Discussion and Recomendations Chest pain of undetermined etiology - no evidence of ACS - symptoms have impro gilles and she wishes to go home Pneumonia - management per Dr Ivy Continue home cardiac medications - she has been on Brilinta 90mg BID following last coronary intervention in April [address] Bartlett Add low dose ASA Add PPI to regimen Advise out pt f/u in 1-2 weeks Advise out pt MPI be done d/t h/o CAD and CAD risk factors She is taking metoprolol tartrate only daily, increase to BID We would like to thank Dr. Ivy for this consult Clinical Quality Measures AMI/AHF: ASA po Prior to arrival: No (none prior to arrival) JIMENA ROBLES MD FACP FAC CCDS Feb 04, 2021 11:05
[2021-02-04] MEDS ORDERED: ATOR80TA76 PO (11:09)
[2021-02-04] MEDS ORDERED: LEVO100C4 PO (11:09)
[2021-02-04] MEDS ORDERED: CEPH500T PO (11:35)
[2021-02-04] MEDS ORDERED: AZIT250T12 PO (11:35)
--- NOTE | 2021-02-04 11:36 | Discharge Inst-Simple/Standard ---
Discharge Inst-Standard Discharge Medications New, Converted or Re-Newed RX: Transmitted to Pharmacy Patient Instructions/Follow Up Plan of Care/Instructions/FU: Please continue to take your medications as written. Please follow up with your primary care doctor and Dr Aguilar to follow up this hospital stay. Activity as Tolerated: Yes Discharge Diet: Cardiac Diet Return to The Hospital For: Chest pain, shortness of breath, fever, weakness, if you feel you are getting worse. MITCHELL LEBRON MD Feb 04, 2021 11:36
[2021-02-04 12:00] VITALS: BP 145/76
[2021-02-04] MEDS ORDERED: cefTRIAXone 1,000 MG/SWFI 10 ML IV PUSH IV SCH ×2 (21:00)
[2021-02-04] MEDS ORDERED: AZITHROMYCIN 500 MG/NS 250 ML IVPB IV SCH ×2 (21:00)
[2021-02-04] MEDS ORDERED: TICAGRELOR 90 MG TABLET (BRILINTA) PO SCH (21:00)
[2021-02-05] MEDS ORDERED: PANTOPRAZOLE 40 MG (PROTONIX) TAB PO SCH (09:00)
[2021-02-05] MEDS ORDERED: ASPIRIN 81 MG CHEW (CHILDREN'S ASA) PO SCH (09:00)
== END 2021-02-04 12:45 | disposition home or self-care (01) ==
LOC: EDUNIT# 16:29 → ER 16:31 → CSD 19:30
PROVIDERS: ADMIT Internal Medicine; ATTEND Internal Medicine
DX: J18.9 Pneumonia, unspecified organism (principal); I25.10 Atherosclerotic heart disease of native coronary artery without angina pectoris; I10 Essential (primary) hypertension; J44.9 Chronic obstructive pulmonary disease, unspecified; E03.9 Hypothyroidism, unspecified; G43.909 Migraine, unspecified, not intractable, without status migrainosus; K21.00 Gastro-esophageal reflux disease with esophagitis, without bleeding; K44.9 Diaphragmatic hernia without obstruction or gangrene; M19.90 Unspecified osteoarthritis, unspecified site; E11.9 Type 2 diabetes mellitus without complications; F41.9 Anxiety disorder, unspecified; F32.9 Major depressive disorder, single episode, unspecified; Z79.899 Other long term (current) drug therapy; Z79.82 Long term (current) use of aspirin; Z79.84 Long term (current) use of oral hypoglycemic drugs; Z20.822 Contact with and (suspected) exposure to COVID-19; Z87.891 Personal history of nicotine dependence
CPT/HCPCS: 71045; 71275; 80053 ×2; 80061; 80306; 81000; 82947 ×2; 83735; 83874; 83880; 84145; 84484 ×2; 85025 ×2; 85379; 85610; 85730; 87088; 87636; 93005; 93041; 94640; 96372; 96374; 96375; 96376; 99284; G0378; 36415

== ENCOUNTER 2021-02-14 21:59 | Emergency (ER) | payer MEDICARE, MEDICAID ==
[~2021-02-14] VITALS: Ht 172.7 cm; Wt 100.0 kg
[~2021-02-14 21:59] MED LIST changes: +ASPI81TA64 PO; +AZIT250T12 PO; +CEPH500T PO; +LEVO100C4 PO; +PANT40TA2 PO
--- NOTE | 2021-02-14 22:18 | ED Fall/Injury ---
General Stated Complaint: FALL - L ANKLE / KNEE PAIN Source: patient Exam Limitations: no limitations History of Present Illness Date Seen by Provider: Feb 14, 2021 Time Seen by Provider: 22:10 Initial Comments Here with complaint of left knee and left ankle pain after falling down a few steps at home. States she landed on her left leg. States her left leg just gave out she landed on it. Denies hitting her head or other injuries. States her friend brought her here for evaluation. Occurred: just prior to arrival (Approximately 30 minutes ago) Severity: mild Injuries/Pain Location: lower extremity Context: other Loss of Consciousness: no loss of consciousness Modifying Factors: Worse With Movement Associated Symptoms (Fall): Denies Symptoms Allergies and Home Medications Allergies Coded Allergies: Penicillins (Verified Allergy, Unknown, 11/05/06) Sulfa (Sulfonamide Antibiotics) (Verified Allergy, Unknown, 11/05/06) naproxen (Verified Allergy, Unknown, HIVES, NAUSEA--can take ibuprofen, 06/01/20) Home Medications Aripiprazole 15 Mg Tablet, 7.5 MG PO DAILY, (Reported) LAST FILLED 11-15-2020 #15/30 TAKES OF A 15MG TAB Aspirin 81 Mg Tab.chew, 81 MG PO ONCE Prescribed by: DAVID ERNST on 02/04/21 1017 Atorvastatin Calcium 80 Mg Tablet, 80 MG PO DAILY, (Reported) LAST FILLED 11-15-2020 #30/30 Azithromycin 250 Mg Tablet, 250 MG PO DAILY Prescribed by: MITCHELL LEBRON on 02/04/21 1135 Cephalexin 500 Mg Tablet, 500 MG PO BID Prescribed by: MITCHELL LEBRON on 02/04/21 1135 Hydroxyzine HCl 25 Mg Tablet, 25 MG PO BID PRN for ANXIETY, (Reported) Ibuprofen 200 Mg Tablet, 400 MG PO Q8H PRN for PAIN-MILD (1-4), (Reported) Levothyroxine Sodium 100 Mcg Capsule, 100 MCG PO DAILY, (Reported) LAST FILLED 11-15-2020 #30/30 Metoprolol Tartrate 25 Mg Tablet, 12.5 MG PO BID Prescribed by: DAVID ERNST on 02/04/21 1021 Pantoprazole Sodium 40 Mg Tablet.dr, 40 MG PO DAILY Prescribed by: DAVID ERNST on 02/04/21 1021 Sertraline HCl 100 Mg Tablet, 100 MG PO DAILY, (Reported) LAST FILLED 11-15-2020 #30/30 Ticagrelor 90 Mg Tablet, 90 MG PO BID Prescribed by: MITCHELL LEBRON on 04/24/20 1014 Zolpidem Tartrate 5 Mg Tablet, 5 MG PO HS PRN for SLEEP, (Reported) Patient Home Medication List Home Medication List Reviewed: Yes Review of Systems Review of Systems Constitutional: see HPI; No chills, No fever Eyes: No Symptoms Reported Ears, Nose, Mouth, Throat: no symptoms reported Respiratory: No cough, No short of breath Cardiovascular: No chest pain, No edema Gastrointestinal: No nausea, No vomiting Musculoskeletal: joint pain, muscle pain Skin: No change in color, No lesions Past Enenmhp-Oeyolx-Lyyzzb Hx Past Med/Social Hx: Reviewed Nursing Past Med/Soc Hx Patient Social History Alcohol Use: Denies Use Smoking Status: Current Everyday Smoker Type Used: Electronic/Vapor 2nd Hand Smoke Exposure: No Recent Hopitalizations: No Immunizations Up To Date Tetanus Booster (TDap): More than 5yrs Date of Pneumonia Vaccine: Jun 20, 2013 Date of Influenza Vaccine: May 24, 2020 Seasonal Allergies Seasonal Allergies: No Past Medical History Surgeries: No Abdominal, Adenoidectomy, Cardiac, CABG, Coronary Stent, Ear Surgery, Gallbladder, Orthopedic, Tonsillectomy Respiratory: Yes Asthma, Chronic Bronchitis, COPD Cardiac: Yes (OPEN HEART SURGERY 2009) Coronary Artery Disease Neurological: No Headaches /Migraines, Seizure Disorder Reproductive Disorders: Yes (HX CERVICAL CANCER) Sexually Transmitted Disease: Yes (HERPES) Genitourinary: No Gastrointestinal: Yes Gastroesophageal Reflux, Esophagitis, Hiatal Hernia, Gall Bladder Disease Musculoskeletal: No Arthritis Endocrine: No Hypothyroidsim, Diabetes, Non-Insulin dep HEENT: Yes Chronic Ear Infection Hearing Impairment: Hard of Hearing Cancer: No Cervical Did You Recieve Any Treatments: Yes What Type of Treatment Did You: Surgical Intervention Psychosocial: Yes Sleep Difficulties, Anxiety, Suicide Attempts, Depression Integumentary: No Blood Disorders: No Adverse Reaction/Blood Tranf: No Family Medical History Reviewed Nursing Family Hx ADDITIONAL PAST MEDICAL AND PROCEDURAL HISTORY: -PT HAD NSTEMI AND WAS ADMITTED 04/22/20-04/24/20, HAD CARDIAC CATH 04/23/20 AND HAD STENT X 1 TO RCA -PT HAS PREVIOUSLY HAD A CABG IN 2009, MULTIPLE STENTS TO RCA, AND STENT TO CIRCUMFLEX IN THE PAST. -CARDIAC CATH 05/08/[address] 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 Patent stents in the right coronary artery was small vessel disease distally 2. 50 percent proximal stenosis in the vein graft to the diagonal artery, small vessel disease distally 3. Mild to moderate disease in the left coronary system, nonobstructive disease 4. Elevated left ventricular end-diastolic pressure DISCUSSION AND RECOMMENDATION: Coronary anatomy has not changed significantly compared to the study of April 24, 2020. Elevated troponin is probably due to small vessel disease, conservative management is recommended Physical Exam Vital Signs Vital Signs - First Documented 02/14/21 22:04 Temp 37.0 Pulse 90 Resp 18 B/P (MAP) 115/69 (84) Pulse Ox 98 O2 Delivery Room Air Capillary Refill : Height, Weight, BMI Height: 5'8.00" Weight: 189lbs. 0.0oz. [id number]; 35.12 BMI Method:Stated General Appearance: WD/WN, no apparent distress Cardiovascular: regular rate, rhythm, no murmur Respiratory: lungs clear, normal breath sounds Back: normal inspection, no vertebral tenderness Extremities: no pedal edema, other (Tenderness to the left ankle both medial and lateral. Mild tenderness to the anterior knee lateral aspects without obvious swelling. No deformity or swelling noted to the extremity overall.) Neurologic/Psychiatric: alert, oriented x 3 Christopher Coma Score Best Eye Response: (4) Open Spontaneously Best Verbal Response: (5) Oriented Best Motor Response: (6) Obeys Commands Progress/Results/Core Measures Results/Orders My Orders Orders - IMER HELLER MD Knee, Left, 3 Views (02/14/21 22:10) Ankle, Left, 3 Views (02/14/21 22:10) Lortab 5mg Po (02/14/21 23:00) Vital Signs/I&O 02/14/21 22:04 Temp 37.0 Pulse 90 Resp 18 B/P (MAP) 115/69 (84) Pulse Ox 98 O2 Delivery Room Air Progress Progress Note : Progress Note Seen and evaluated. X-ray left knee and left ankle. Monitor patient. 2259: No acute fractures noted. Hydrocodone 5/325 1 tab p.o. given for pain. She will continue with Tylenol at home. Tolu wrap's initiated to knee and ankle. Gel splint to left ankle. Discharged home with return precautions. Patient verbalized understanding of instructions and agreement with plan. Diagnostic Imaging Diagonstic Imaging: Xray Plain Films/CT/US/NM/MRI: knee, ankle Comments No acute fracture noted on knee x-ray. No acute fracture noted on ankle x-ray. Reviewed: Reviewed by Me Departure Impression Primary Impression: Strain of left knee Qualified Codes: S86.912A - Strain of unspecified muscle(s) and tendon(s) at lower leg level, left leg, initial encounter Additional Impression: Left ankle sprain Qualified Codes: S93.402A - Sprain of unspecified ligament of left ankle, initial encounter Disposition: HOME, SELF-CARE Condition: Stable Departure-Patient Inst. Decision time for Depature: 23:01 Referrals: EDWAR LOBO DO (PCP/Family) Primary Care Physician Patient Instructions: Knee Pain, Ankle Sprain ED Add. Discharge Instructions: Follow-up with your doctor in a few days for recheck if not improved. You may take Tylenol/acetaminophen 1000 mg every 8 hours as needed for pain. You may use ice packs to area of concern 20 minutes/h as needed. Use Tolu wrap and gel splint as needed for pain and for support and comfort. You may use this over the next several days and then as needed. Return for worse pain, swelling, weakness, numbness or other concerns as needed. IMER HELLER MD Feb 14, 2021 22:18
[2021-02-14] MEDS ORDERED: HYDROcodone/APAP 5 MG/325 MG (LORTAB) TAB PO ONE (23:00)
[2021-02-14 23:10] VITALS: BP 118/70
--- NOTE | 2021-02-15 07:39 | Diagnostic Imaging Report ---
Clinical indications: Patient fell senior living down her stairs. Patient has pain to left knee and left ankle. EXAM: X-ray of the left ankle, 3 views. COMPARISON: None. FINDINGS: There is slight bony prominence seen posterior to the posterior malleolar region of unknown age. There is no definite cortical disruption seen. There is soft tissue swelling adjacent to the ankle. There is no other concern for fracture. There are small spurs involving the medial lateral malleoli regions. Ankle mortise and syndesmotic joints unremarkable as visualized. There is some bony irregularity of the interosseous region and syndesmotic joint. There is hypertrophic calcaneal spurs seen. IMPRESSION: 1: There is slight bony prominence in the region of the posterior malleolus region. This is of unknown age. There is no definite cortical disruption seen. This may be from prior trauma, if patient has history trauma. If there is continued concern for fracture in this region, then follow-up x-ray imaging may help better evaluate. 2: There is degenerative disease in the left ankle and foot. Dictated by: Dictated on workstation # [id number]
--- NOTE | 2021-02-15 07:50 | Diagnostic Imaging Report ---
Clinical indication: Patient fell [facility]cc down the stairs. Patient has left knee pain. EXAM: X-ray of the left knee, 3 views. COMPARISON: X-ray of the left knee dated 10/25/2008. FINDINGS: There is no acute fracture or dislocation. There is interval minimal narrowing of the medial compartment. There is no knee effusion. IMPRESSION: There is no acute fracture or dislocation. Dictated by: Dictated on workstation # [id number]
== END 2021-02-14 23:10 | disposition home or self-care (01) ==
LOC: EDUNIT# 21:59 → ER 22:00
DX: S93.402A Sprain of unspecified ligament of left ankle, initial encounter (principal); S86.912A Strain of unspecified muscle(s) and tendon(s) at lower leg level, left leg, initial encounter; I25.10 Atherosclerotic heart disease of native coronary artery without angina pectoris; J44.9 Chronic obstructive pulmonary disease, unspecified; K21.00 Gastro-esophageal reflux disease with esophagitis, without bleeding; F41.9 Anxiety disorder, unspecified; F32.9 Major depressive disorder, single episode, unspecified; F17.290 Nicotine dependence, other tobacco product, uncomplicated; Z95.1 Presence of aortocoronary bypass graft; Z95.5 Presence of coronary angioplasty implant and graft; Z79.82 Long term (current) use of aspirin; Z79.899 Other long term (current) drug therapy; Z88.6 Allergy status to analgesic agent; W10.9XXA Fall (on) (from) unspecified stairs and steps, initial encounter; Y92.009 Unspecified place in unspecified non-institutional (private) residence as the place of occurrence of the external cause
CPT/HCPCS: 73562; 73610; L4350

== ENCOUNTER 2021-02-27 15:39 | Emergency (ER) | payer MEDICARE, MEDICAID ==
[~2021-02-27] VITALS: Ht 173 cm; Wt 97.5 kg
--- NOTE | 2021-02-27 16:09 | ED Cough/URI ---
General Chief Complaint: Respiratory Problems Stated Complaint: SOB Source: patient Exam Limitations: no limitations History of Present Illness Date Seen by Provider: Feb 27, 2021 Time Seen by Provider: 16:09 Initial Comments To ER with shortness of breath and central chest pain. History of CABG. Timing/Duration: constant Severity/Quality: moderate Associated Symptoms: shortness of breath Allergies and Home Medications Allergies Coded Allergies: Penicillins (Verified Allergy, Unknown, 11/05/06) Sulfa (Sulfonamide Antibiotics) (Verified Allergy, Unknown, 11/05/06) naproxen (Verified Allergy, Unknown, HIVES, NAUSEA--can take ibuprofen, 06/01/20) Home Medications Aripiprazole 15 Mg Tablet, 7.5 MG PO DAILY, (Reported) LAST FILLED 11-15-2020 #15/30 TAKES OF A 15MG TAB Aspirin 81 Mg Tab.chew, 81 MG PO ONCE Prescribed by: DAVID ERNST on 02/04/21 1017 Atorvastatin Calcium 80 Mg Tablet, 80 MG PO DAILY, (Reported) LAST FILLED 11-15-2020 #30/30 Azithromycin 250 Mg Tablet, 250 MG PO DAILY Prescribed by: MITCHELL LEBRON on 02/04/21 1135 Cephalexin 500 Mg Tablet, 500 MG PO BID Prescribed by: MITCHELL LEBRON on 02/04/21 1135 Hydroxyzine HCl 25 Mg Tablet, 25 MG PO BID PRN for ANXIETY, (Reported) Ibuprofen 200 Mg Tablet, 400 MG PO Q8H PRN for PAIN-MILD (1-4), (Reported) Levothyroxine Sodium 100 Mcg Capsule, 100 MCG PO DAILY, (Reported) LAST FILLED 11-15-2020 #30/30 Metoprolol Tartrate 25 Mg Tablet, 12.5 MG PO BID Prescribed by: DAVID ERNST on 02/04/21 1021 Pantoprazole Sodium 40 Mg Tablet.dr, 40 MG PO DAILY Prescribed by: DAVID ERNST on 02/04/21 1021 Sertraline HCl 100 Mg Tablet, 100 MG PO DAILY, (Reported) LAST FILLED 11-15-2020 #30/30 Ticagrelor 90 Mg Tablet, 90 MG PO BID Prescribed by: MITCHELL LEBRON on 04/24/20 1014 Zolpidem Tartrate 5 Mg Tablet, 5 MG PO HS PRN for SLEEP, (Reported) Patient Home Medication List Home Medication List Reviewed: Yes Review of Systems Review of Systems Constitutional: see HPI EENTM: see HPI Respiratory: no symptoms reported Cardiovascular: no symptoms reported Genitourinary: no symptoms reported Musculoskeletal: no symptoms reported Skin: no symptoms reported Psychiatric/Neurological: No Symptoms Reported Hematologic/Lymphatic: No Symptoms Reported Immunological/Allergic: no symptoms reported Past Ifwmjyt-Ydboar-Fvnike Hx Immunizations Up To Date Tetanus Booster (TDap): More than 5yrs Seasonal Allergies Seasonal Allergies: No Past Medical History Surgeries: No Abdominal, Adenoidectomy, Cardiac, CABG, Coronary Stent, Ear Surgery, Gallbladder, Orthopedic, Tonsillectomy Respiratory: Yes Asthma, Chronic Bronchitis, COPD Cardiac: Yes (OPEN HEART SURGERY 2009) Coronary Artery Disease Neurological: No Headaches /Migraines, Seizure Disorder Reproductive Disorders: Yes (HX CERVICAL CANCER) Sexually Transmitted Disease: Yes (HERPES) Genitourinary: No Gastrointestinal: Yes Gastroesophageal Reflux, Esophagitis, Hiatal Hernia, Gall Bladder Disease Musculoskeletal: No Arthritis Endocrine: No Hypothyroidsim, Diabetes, Non-Insulin dep HEENT: Yes Chronic Ear Infection Hearing Impairment: Hard of Hearing Cancer: No Cervical Did You Recieve Any Treatments: Yes What Type of Treatment Did You: Surgical Intervention Psychosocial: Yes Sleep Difficulties, Anxiety, Suicide Attempts, Depression Integumentary: No Blood Disorders: No Adverse Reaction/Blood Tranf: No Family Medical History ADDITIONAL PAST MEDICAL AND PROCEDURAL HISTORY: -PT HAD NSTEMI AND WAS ADMITTED 04/22/20-04/24/20, HAD CARDIAC CATH 04/23/20 AND HAD STENT X 1 TO RCA -PT HAS PREVIOUSLY HAD A CABG IN 2009, MULTIPLE STENTS TO RCA, AND STENT TO CIRCUMFLEX IN THE PAST. -CARDIAC CATH 05/08/[address] 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 Patent stents in the right coronary artery was small vessel disease distally 2. 50 percent proximal stenosis in the vein graft to the diagonal artery, small vessel disease distally 3. Mild to moderate disease in the left coronary system, nonobstructive disease 4. Elevated left ventricular end-diastolic pressure DISCUSSION AND RECOMMENDATION: Coronary anatomy has not changed significantly compared to the study of April 24, 2020. Elevated troponin is probably due to small vessel disease, conservative management is recommended Physical Exam Vital Signs - First Documented 02/27/21 02/27/21 16:05 16:07 Temp 36.6 Pulse 80 Resp 20 B/P (MAP) 97/63 (74) Pulse Ox 99 O2 Delivery Nasal Cannula O2 Flow Rate 2.00 Capillary Refill : Height: 5'8.00" Weight: 189lbs. 0.0oz. 85.787679hl; 33.00 BMI Method:Stated General Appearance: WD/WN, no apparent distress Eyes: Bilateral Eye Normal Inspection, Bilateral Eye PERRL, Bilateral Eye EOMI HEENT: PERRL/EOMI, normal ENT inspection Respiratory: no respiratory distress, no accessory muscle use Cardiovascular: regular rate, rhythm, no murmur Gastrointestinal: normal bowel sounds, non tender, soft Neurologic/Psychiatric: alert, normal mood/affect, oriented x 3 Skin: normal color, warm/dry Progress/Results/Core Measures Suspected Sepsis SIRS Temperature: Pulse: Respiratory Rate: Laboratory Tests 02/27/21 16:00: White Blood Count 7.7 Blood Pressure / Mean: Laboratory Tests 02/27/21 16:00: Creatinine 0.84, INR Comment 0.9, Platelet Count 265, Total Bilirubin 1.0 Results/Orders Lab Results Laboratory Tests Test 02/27/21 15:50 02/27/21 16:00 02/27/21 18:00 Range/Units SARS-CoV-2 RNA (RT-PCR) Not Detected Not Detecte White Blood Count 7.7 4.3-11.0 10^3/uL Red Blood Count 4.41 3.80-5.11 10^6/uL Hemoglobin 14.2 11.5-16.0 g/dL Hematocrit 41 35-52 % Mean Corpuscular Volume 94 80-99 fL Mean Corpuscular Hemoglobin 32 25-34 pg Mean Corpuscular Hemoglobin Concent 34 32-36 g/dL Red Cell Distribution Width 12.7 10.0-14.5 % Platelet Count 265 130-400 10^3/uL Mean Platelet Volume 10.6 9.0-12.2 fL Immature Granulocyte % (Auto) 0 % Neutrophils (%) (Auto) 49 42-75 % Lymphocytes (%) (Auto) 33 12-44 % Monocytes (%) (Auto) 7 0-12 % Eosinophils (%) (Auto) 10 0-10 % Basophils (%) (Auto) 1 0-10 % Neutrophils # (Auto) 3.8 1.8-7.8 10^3/uL Lymphocytes # (Auto) 2.5 1.0-4.0 10^3/uL Monocytes # (Auto) 0.5 0.0-1.0 10^3/uL Eosinophils # (Auto) 0.7 H 0.0-0.3 10^3/uL Basophils # (Auto) 0.1 0.0-0.1 10^3/uL Immature Granulocyte # (Auto) 0.0 0.0-0.1 10^3/uL Prothrombin Time 12.8 12.2-14.7 SEC INR Comment 0.9 0.8-1.4 Activated Partial Thromboplast Time 30 24-35 SEC D-Dimer 1.20 H 0.00-0.49 UG/ML Sodium Level 139 135-145 MMOL/L Potassium Level 3.9 3.6-5.0 MMOL/L Chloride Level 109 H 98-107 MMOL/L Carbon Dioxide Level 21 21-32 MMOL/L Anion Gap 9 5-14 MMOL/L Blood Urea Nitrogen 15 7-18 MG/DL Creatinine 0.84 0.60-1.30 MG/DL Estimat Glomerular Filtration Rate > 60 BUN/Creatinine Ratio 18 Glucose Level 172 H 70-105 MG/DL Calcium Level 9.0 8.5-10.1 MG/DL Corrected Calcium 9.2 8.5-10.1 MG/DL Magnesium Level 1.7 1.6-2.4 MG/DL Total Bilirubin 1.0 0.1-1.0 MG/DL Aspartate Amino Transf (AST/SGOT) 14 5-34 U/L Alanine Aminotransferase (ALT/SGPT) 19 0-55 U/L Alkaline Phosphatase 97 40-136 U/L Myoglobin 58.9 10.0-92.0 NG/ML Troponin I < 0.028 < 0.028 <0.028 NG/ML B-Type Natriuretic Peptide 59.1 <100.0 PG/ML Total Protein 6.5 6.4-8.2 GM/DL Albumin 3.8 3.2-4.5 GM/DL My Orders Orders - TAMRA CABALLERO APRN Cbc With Automated Diff (02/27/21 15:42) Magnesium (02/27/21 15:42) Chest 1 View, Ap/Pa Only (02/27/21 15:42) Ekg Tracing (02/27/21 15:42) Comprehensive Metabolic Panel (02/27/21 15:42) Myoglobin Serum (02/27/21 15:42) Protime With Inr (02/27/21 15:42) Partial Thromboplastin Time (02/27/21 15:42) O2 (02/27/21 15:42) Monitor-Rhythm Ecg Trace Only (02/27/21 15:42) Lipid Panel (02/28/21 06:00) Ed Iv/Invasive Line Start (02/27/21 15:42) BNP (02/27/21 15:42) Fibrin Degradation Products (02/27/21 15:42) Troponin I (02/27/21 15:42) Covid 19 Inhouse Test (02/27/21 15:42) Lactated Ringers (Lr 1000 Ml Iv Solution (02/27/21 16:45) Lactated Ringers (Lr 1000 Ml Iv Solution (02/27/21 16:40) Ct Angio Chest W (02/27/21 16:52) Fentanyl Inj (Sublimaze Injection) (02/27/21 17:00) Ondansetron Injection (Zofran Injectio (02/27/21 17:00) Ondansetron Injection (Zofran Injectio (02/27/21 16:56) Iohexol Injection (Omnipaque 350 Mg/Ml 1 (02/27/21 17:15) Received Contrast (Hold Metformin- Contr (02/27/21 17:15) Ns (Ivpb) (Sodium Chloride 0.9% Ivpb Bag (02/27/21 17:15) Hydrocodone/Apap 5/325 Tablet (Lortab 5 (02/27/21 17:45) Antacid Suspension (Mylanta Suspension (02/27/21 17:45) Lidocaine 2% Viscous 15 Ml (Xylocaine Vi (02/27/21 17:45) Antacid Suspension (Mylanta Suspension (02/27/21 17:41) Lidocaine 2% Viscous 15 Ml (Xylocaine Vi (02/27/21 17:41) Troponin I (02/27/21 17:58) Lactated Ringers (Lr 1000 Ml Iv Solution (02/27/21 18:30) Medications Given in ED Current Medications Medications Dose Ordered Sig/Sara Route Start Time Stop Time Status Last Admin Dose Admin Acetaminophen/ Hydrocodone Bitart 1 ea ONCE ONCE PO 02/27/21 17:45 02/27/21 17:46 DC 02/27/21 17:43 1 EA Al Hydrox/Mg Hydrox/Simethicone 30 ml ONCE ONCE PO 02/27/21 17:45 02/27/21 17:46 DC 02/27/21 17:43 30 ML Fentanyl Citrate 50 mcg ONCE ONCE IVP 02/27/21 17:00 02/27/21 17:01 DC 02/27/21 16:56 50 MCG Iohexol 100 ml ONCE ONCE IV 02/27/21 17:15 02/27/21 17:16 DC 02/27/21 17:10 83 ML Lidocaine HCl 10 ml ONCE ONCE PO 02/27/21 17:45 02/27/21 17:46 DC 02/27/21 17:43 10 ML Ondansetron HCl 4 mg ONCE ONCE IVP 02/27/21 17:00 02/27/21 17:01 DC 02/27/21 17:00 4 MG Sodium Chloride 100 ml ONCE ONCE IV 02/27/21 17:15 02/27/21 17:16 DC 02/27/21 17:10 80 ML Vital Signs/I&O 02/27/21 02/27/21 02/27/21 16:05 16:07 16:56 Temp 36.6 36.6 Pulse 80 Resp 20 B/P (MAP) 97/63 (74) Pulse Ox 99 99 O2 Delivery Nasal Cannula Nasal Cannula O2 Flow Rate 2.00 2.00 Capillary Refill : Departure Communication (Admissions) EKG shows sinus rhythm rate of 81, normal intervals, Q waves in the inferior leads. No ST segment changes or ectopy. Impression Primary Impression: Chest pain Disposition: 01 HOME, SELF-CARE Condition: Stable Departure-Patient Inst. Decision time for Depature: 19:08 Referrals: EDWAR LOBO DO (PCP/Family) Primary Care Physician Patient Instructions: Chest Pain TAMRA CABALLERO APRN Feb 27, 2021 16:09
[2021-02-27 16:14] LABS: BASOPHILS # (AUTO) 0.1 10^3/uL (0.0-0.1); BASOPHILS % (AUTO) 1 % (0-10); EOSINOPHILS # (AUTO) 0.7 10^3/uL (0.0-0.3); EOSINOPHILS % (AUTO) 10 % (0-10); HEMATOCRIT 41 % (35-52); HEMOGLOBIN 14.2 g/dL (11.5-16.0); LYMPHOCYTES # (AUTO) 2.5 10^3/uL (1.0-4.0); LYMPHOCYTES % (AUTO) 33 % (12-44); MEAN CORPUSCULAR HEMOGLOBIN 32 pg (25-34); MEAN CORPUSCULAR HGB CONC 34 g/dL (32-36); MEAN CORPUSCULAR VOLUME 94 fL (80-99); MEAN PLATELET VOLUME 10.6 fL (9.0-12.2); MONOCYTES # (AUTO) 0.5 10^3/uL (0.0-1.0); MONOCYTES % (AUTO) 7 % (0-12); NEUTROPHILS # (AUTO) 3.8 10^3/uL (1.8-7.8); NEUTROPHILS % (AUTO) 49 % (42-75); PLATELET COUNT 265 10^3/uL (130-400); WHITE BLOOD COUNT 7.7 10^3/uL (4.3-11.0)
[2021-02-27 16:28] LABS: INR 0.9 (0.8-1.4); PROTHROMBIN TIME PATIENT 12.8 SEC (12.2-14.7)
[2021-02-27 16:30] LABS: ALBUMIN 3.8 GM/DL (3.2-4.5); CHLORIDE 109 MMOL/L (98-107); POTASSIUM 3.9 MMOL/L (3.6-5.0); SODIUM 139 MMOL/L (135-145)
--- NOTE | 2021-02-27 16:31 | Diagnostic Imaging Report ---
INDICATION: Chest pain. COMPARISON: Prior examination from 02/03/2021. FINDINGS: The heart size, mediastinal configuration, and pulmonary vascularity are within normal limits. There is no pleural effusion, pneumothorax, or pneumonia. The osseous structures are unremarkable. IMPRESSION: No acute cardiopulmonary abnormality. Dictated by: Dictated on workstation # [id number]
[2021-02-27 16:33] LABS: GLUCOSE 172 MG/DL (70-105); TOTAL PROTEIN 6.5 GM/DL (6.4-8.2)
[2021-02-27 16:34] LABS: CARBON DIOXIDE 21 MMOL/L (21-32)
[2021-02-27 16:36] LABS: ALKALINE PHOSPHATASE 97 U/L (40-136); CREATININE SERUM 0.84 MG/DL (0.60-1.30); GFR ESTIMATED > 60
[2021-02-27 16:37] LABS: BUN/CREATININE RATIO 18
[2021-02-27 16:39] LABS: ALANINE AMINOTRANSFERASE 19 U/L (0-55)
[2021-02-27] MEDS ORDERED: LACTATED RINGERS 1,000 ML IV ONE (16:40)
[2021-02-27 16:41] LABS: MAGNESIUM 1.7 MG/DL (1.6-2.4)
[2021-02-27] MEDS ORDERED: LACTATED RINGERS 1,000 ML IV SCH ×2 (16:45→18:30)
[2021-02-27] MEDS ORDERED: ONDANSETRON 4 MG/2 ML (SDV) Z0FRAN ONE (16:56)
[2021-02-27] MEDS ORDERED: fentaNYL INJ 100 MCG/2 ML AMP IVP ONE (17:00)
[2021-02-27] MEDS ORDERED: ONDANSETRON 4 MG/2 ML (SDV) Z0FRAN IVP ONE (17:00)
[2021-02-27] MEDS ORDERED: HOLD METFORMIN - RECEIVED CONTRAST 20 ML VIAL IV SCH (17:15)
[2021-02-27] MEDS ORDERED: IOHEXOL 350 MG/ML 100 ML (OMNIPAQUE 350) VIAL IV ONE (17:15)
[2021-02-27] MEDS ORDERED: NS 100 ML (IVPB) BAG IV ONE (17:15)
--- NOTE | 2021-02-27 17:37 | Diagnostic Imaging Report ---
PROCEDURE: CT angiography of the chest with contrast. TECHNIQUE: Multiple contiguous axial images were obtained through the chest after uneventful bolus administration of intravenous contrast. 3D reconstructed CTA MIP acquisitions were also performed. Auto Exposure Controls were utilized during the CT exam to meet ALARA standards for radiation dose reduction. INDICATION: 45-year-old female, chest pain, history of cardiac bypass surgery. CORRELATION: CTA chest 02/03/2021. FINDINGS: Poststernotomy changes. Multiple clips within the base of the neck. Heart size within normal limits and there is no disproportionate right heart strain. Thoracic aorta is normal in contour. There are no pulmonary artery filling defects to suggest pulmonary embolism. Small hiatal hernia with wall thickening at the gastroesophageal junction. No definitive pathologically enlarged mediastinal lymph nodes. There is no consolidating infiltrate. There is mild central bronchial wall thickening which could reflect nonspecific bronchitis. No significant pleural effusion. Post cholecystectomy changes. The visualized osseous structures demonstrate no acute findings. IMPRESSION: 1. No CTA evidence for pulmonary embolism. Negative for acute abnormality of the chest. 2. Prior sternotomy and coronary artery bypass changes. 3. Small to moderate hiatal hernia with some wall thickening at the gastroesophageal junction. Dictated by: Dictated on workstation # [id number]
[2021-02-27] MEDS ORDERED: LIDOCAINE 2% VISCOUS 15 ML UDC ONE (17:41)
[2021-02-27] MEDS ORDERED: ANTACID SUSP 30 ML UDC (MYLANTA) ONE (17:41)
[2021-02-27] MEDS ORDERED: HYDROcodone/APAP 5 MG/325 MG (LORTAB) TAB PO ONE (17:45)
[2021-02-27] MEDS ORDERED: LIDOCAINE 2% VISCOUS 15 ML UDC PO ONE (17:45)
[2021-02-27] MEDS ORDERED: ANTACID SUSP 30 ML UDC (MYLANTA) PO ONE (17:45)
[2021-02-27 19:32] VITALS: BP 96/65
== END 2021-02-27 19:32 | disposition home or self-care (01) ==
LOC: EDUNIT# 15:39 → ER 15:40
DX: R07.9 Chest pain, unspecified (principal); J44.9 Chronic obstructive pulmonary disease, unspecified; I25.10 Atherosclerotic heart disease of native coronary artery without angina pectoris; K21.9 Gastro-esophageal reflux disease without esophagitis; E03.9 Hypothyroidism, unspecified; F41.9 Anxiety disorder, unspecified; F32.9 Major depressive disorder, single episode, unspecified; E11.9 Type 2 diabetes mellitus without complications; Z20.822 Contact with and (suspected) exposure to COVID-19; Z79.82 Long term (current) use of aspirin; Z79.899 Other long term (current) drug therapy; Z79.890 Hormone replacement therapy
CPT/HCPCS: 36415; 71045; 71275; 80053; 83735; 83874; 83880; 84484; 85025; 85379; 85610; 85730; 87636; 93005; 93041

== ENCOUNTER 2021-03-11 05:25 | Emergency (ER) | payer MEDICARE, MEDICAID ==
[2021-03-11] MEDS ORDERED: RT-ALBUTEROL INHALER HFA (VENTOLIN HFA) 18 GM IH STA (05:36)
[2021-03-11] MEDS ORDERED: fentaNYL INJ 100 MCG/2 ML AMP IVP ONE (05:45)
[2021-03-11 05:49] LABS: ALBUMIN 3.6 GM/DL (3.2-4.5); BASOPHILS # (AUTO) 0.1 10^3/uL (0.0-0.1); BASOPHILS % (AUTO) 1 % (0-10); CHLORIDE 107 MMOL/L (98-107); EOSINOPHILS # (AUTO) 0.8 10^3/uL (0.0-0.3); EOSINOPHILS % (AUTO) 10 % (0-10); HEMATOCRIT 40 % (35-52); HEMOGLOBIN 13.4 g/dL (11.5-16.0); LYMPHOCYTES # (AUTO) 4.1 10^3/uL (1.0-4.0); LYMPHOCYTES % (AUTO) 49 % (12-44); MEAN CORPUSCULAR HEMOGLOBIN 32 pg (25-34); MEAN CORPUSCULAR HGB CONC 34 g/dL (32-36); MEAN CORPUSCULAR VOLUME 95 fL (80-99); MEAN PLATELET VOLUME 10.6 fL (9.0-12.2); MONOCYTES # (AUTO) 0.5 10^3/uL (0.0-1.0); MONOCYTES % (AUTO) 6 % (0-12); NEUTROPHILS # (AUTO) 2.8 10^3/uL (1.8-7.8); NEUTROPHILS % (AUTO) 34 % (42-75); PLATELET COUNT 263 10^3/uL (130-400); POTASSIUM 3.9 MMOL/L (3.6-5.0); SODIUM 139 MMOL/L (135-145); WHITE BLOOD COUNT 8.3 10^3/uL (4.3-11.0)
[2021-03-11 05:51] LABS: CALCIUM 8.6 MG/DL (8.5-10.1)
[2021-03-11 05:52] LABS: GLUCOSE 142 MG/DL (70-105); TOTAL PROTEIN 6.5 GM/DL (6.4-8.2)
[2021-03-11 05:53] LABS: CARBON DIOXIDE 22 MMOL/L (21-32)
[2021-03-11 05:54] LABS: BILIRUBIN,TOTAL 0.5 MG/DL (0.1-1.0); FIBRIN DEGRADATION PRODUCTS 1.15 UG/ML (0.00-0.49); INR 0.8 (0.8-1.4); PROTHROMBIN TIME PATIENT 11.8 SEC (12.2-14.7)
[2021-03-11 05:55] LABS: ALKALINE PHOSPHATASE 104 U/L (40-136); CREATININE SERUM 0.85 MG/DL (0.60-1.30); GFR ESTIMATED 72
[2021-03-11 05:57] LABS: BUN/CREATININE RATIO 20
[2021-03-11 05:58] LABS: ALANINE AMINOTRANSFERASE 13 U/L (0-55); MAGNESIUM 1.7 MG/DL (1.6-2.4)
[2021-03-11] MEDS ORDERED: morphine INJ 10 MG/ML 1ML (SYR OR VIAL) IVP STA ×2 (06:20→07:45)
--- NOTE | 2021-03-11 06:26 | ED Chest Pain ---
General Chief Complaint: Chest Pain Stated Complaint: CP Nursing Triage Note: TO ED [facility]IA [facility] TO ROOM 5 WITH C/O CP THAT WOKE HER UP AT 0400. SHE STATES SHE TRIED 2 NITRO WITHOUT RELIEF. EN ROUTE EMS GAVE 1 SL NITRO WITHOUT RELIEF, 324 ASA, AND 4MG IV ZOFRAN. Source: patient, old records Exam Limitations: no limitations (DORA ROMERO MD) History of Present Illness Date Seen by Provider: Mar 11, 2021 Time Seen by Provider: 05:26 Initial Comments This 45-year-old woman with known coronary artery disease status post CABG presents to the emergency room via EMS with chest pain that woke her up. Pain is in the central chest and radiates to the right neck and left arm. She notes that inspiration worsens the pain. She denies any signs or symptoms of acute infectious illness such as fever, cough, diarrhea, etc. She took 2 nitroglycerin at home. An additional nitroglycerin was given by EMS. The nitro given by EMS dropped her blood pressure to 88 systolic. Nitroglycerin did not improve her pain. She is noted to be wheezy on exam. She admits to continued smoking. (DORA ROMERO MD) Allergies and Home Medications Allergies Coded Allergies: Penicillins (Verified Allergy, Unknown, 11/05/06) Sulfa (Sulfonamide Antibiotics) (Verified Allergy, Unknown, 11/05/06) naproxen (Verified Allergy, Unknown, HIVES, NAUSEA--can take ibuprofen, 06/01/20) Home Medications Aripiprazole 15 Mg Tablet, 7.5 MG PO DAILY, (Reported) LAST FILLED 11-15-2020 #15/30 TAKES OF A 15MG TAB Aspirin 81 Mg Tab.chew, 81 MG PO ONCE Prescribed by: DAVID ERNST on 02/04/21 1017 Atorvastatin Calcium 80 Mg Tablet, 80 MG PO DAILY, (Reported) LAST FILLED 11-15-2020 #30/30 Azithromycin 250 Mg Tablet, 250 MG PO DAILY Prescribed by: MITCHELL LEBRON on 02/04/21 1135 Cephalexin 500 Mg Tablet, 500 MG PO BID Prescribed by: MITCHELL LEBRON on 02/04/21 1135 Hydroxyzine HCl 25 Mg Tablet, 25 MG PO BID PRN for ANXIETY, (Reported) Ibuprofen 200 Mg Tablet, 400 MG PO Q8H PRN for PAIN-MILD (1-4), (Reported) Levothyroxine Sodium 100 Mcg Capsule, 100 MCG PO DAILY, (Reported) LAST FILLED 11-15-2020 #30/30 Metoprolol Tartrate 25 Mg Tablet, 12.5 MG PO BID Prescribed by: DAVID ERNST on 02/04/21 1021 Pantoprazole Sodium 40 Mg Tablet.dr, 40 MG PO DAILY Prescribed by: DAVID ERNST on 02/04/21 1021 Sertraline HCl 100 Mg Tablet, 100 MG PO DAILY, (Reported) LAST FILLED 11-15-2020 #30/30 Ticagrelor 90 Mg Tablet, 90 MG PO BID Prescribed by: MITCHELL LEBRON on 04/24/20 1014 Zolpidem Tartrate 5 Mg Tablet, 5 MG PO HS PRN for SLEEP, (Reported) Patient Home Medication List Home Medication List Reviewed: Yes (DORA ROMERO MD) Review of Systems Review of Systems Constitutional: no symptoms reported EENTM: No Symptoms Reported Respiratory: See HPI Cardiovascular: See HPI Gastrointestinal: No Symptoms Reported Genitourinary: No Symptoms Reported Musculoskeletal: no symptoms reported Skin: no symptoms reported Psychiatric/Neurological: No Symptoms Reported Endocrine: No Symptoms Reported Hematologic/Lymphatic: No Symptoms Reported (DORA ROMERO MD) Past Phchhkn-Ohkwor-Mowgsm Hx Patient Social History Tobacco Use?: Yes Tobacco type used: Cigarettes Substance use?: No Alcohol Use?: No Pt feels they are or have been: No (DORA ROMERO MD) Immunizations Up To Date Tetanus Booster (TDap): More than 5yrs (DORA ROMERO MD) Seasonal Allergies Seasonal Allergies: No (DORA ROMERO MD) Past Medical History Surgery/Hospitalization HX: OPEN HEART SX AT [facility] 2009 Surgeries: No Abdominal, Adenoidectomy, Cardiac, CABG, Coronary Stent, Ear Surgery, Gallbladder, Orthopedic, Tonsillectomy Respiratory: Yes Asthma, Chronic Bronchitis, COPD Cardiac: Yes (OPEN HEART SURGERY 2009) Coronary Artery Disease Neurological: No Headaches /Migraines, Seizure Disorder Reproductive Disorders: Yes (HX CERVICAL CANCER) Sexually Transmitted Disease: Yes (HERPES) Genitourinary: No Gastrointestinal: Yes Gastroesophageal Reflux, Esophagitis, Hiatal Hernia, Gall Bladder Disease Musculoskeletal: Yes Arthritis Endocrine: Yes Hypothyroidsim, Diabetes, Non-Insulin dep HEENT: Yes Chronic Ear Infection Hearing Impairment: Hard of Hearing Cancer: No Cervical Did You Recieve Any Treatments: Yes What Type of Treatment Did You: Surgical Intervention Psychosocial: Yes Sleep Difficulties, Anxiety, Suicide Attempts, Depression Integumentary: No Blood Disorders: No Adverse Reaction/Blood Tranf: No (DORA ROMERO MD) Family Medical History ADDITIONAL PAST MEDICAL AND PROCEDURAL HISTORY: -PT HAD NSTEMI AND WAS ADMITTED 04/22/20-04/24/20, HAD CARDIAC CATH 04/23/20 AND HAD STENT X 1 TO RCA -PT HAS PREVIOUSLY HAD A CABG IN 2009, MULTIPLE STENTS TO RCA, AND STENT TO CIRCUMFLEX IN THE PAST. -CARDIAC CATH 05/08/[address] 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 Patent stents in the right coronary artery was small vessel disease distally 2. 50 percent proximal stenosis in the vein graft to the diagonal artery, small vessel disease distally 3. Mild to moderate disease in the left coronary system, nonobstructive disease 4. Elevated left ventricular end-diastolic pressure DISCUSSION AND RECOMMENDATION: Coronary anatomy has not changed significantly compared to the study of April 24, 2020. Elevated troponin is probably due to small vessel disease, conservative management is recommended (DORA ROMERO MD) Physical Exam Vital Signs Vital Signs - First Documented 03/11/21 05:29 Temp 36.9 Pulse 72 Resp 16 B/P (MAP) 133/95 (108) O2 Delivery Room Air (MARGARET HDEZ) Vital Signs Capillary Refill : Less Than 3 Seconds (DORA ROMERO MD) Height, Weight, BMI Height: 5'8.00" Weight: 189lbs. 0.0oz. 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6 9.0-12.2 fL Immature Granulocyte % (Auto) 0 % Neutrophils (%) (Auto) 34 L 42-75 % Lymphocytes (%) (Auto) 49 H 12-44 % Monocytes (%) (Auto) 6 0-12 % Eosinophils (%) (Auto) 10 0-10 % Basophils (%) (Auto) 1 0-10 % Neutrophils # (Auto) 2.8 1.8-7.8 10^3/uL Lymphocytes # (Auto) 4.1 H 1.0-4.0 10^3/uL Monocytes # (Auto) 0.5 0.0-1.0 10^3/uL Eosinophils # (Auto) 0.8 H 0.0-0.3 10^3/uL Basophils # (Auto) 0.1 0.0-0.1 10^3/uL Immature Granulocyte # (Auto) 0.0 0.0-0.1 10^3/uL Prothrombin Time 11.8 L 12.2-14.7 SEC INR Comment 0.8 0.8-1.4 Activated Partial Thromboplast Time 30 24-35 SEC D-Dimer 1.15 H 0.00-0.49 UG/ML Sodium Level 139 135-145 MMOL/L Potassium Level 3.9 3.6-5.0 MMOL/L Chloride Level 107 98-107 MMOL/L Carbon Dioxide Level 22 21-32 MMOL/L Anion Gap 10 5-14 MMOL/L Blood Urea Nitrogen 17 7-18 MG/DL Creatinine 0.85 0.60-1.30 MG/DL Estimat Glomerular Filtration Rate 72 BUN/Creatinine Ratio 20 Glucose Level 142 H 70-105 MG/DL Calcium Level 8.6 8.5-10.1 MG/DL Corrected Calcium 8.9 8.5-10.1 MG/DL Magnesium Level 1.7 1.6-2.4 MG/DL Total Bilirubin 0.5 0.1-1.0 MG/DL Aspartate Amino Transf (AST/SGOT) 13 5-34 U/L Alanine Aminotransferase (ALT/SGPT) 13 0-55 U/L Alkaline Phosphatase 104 40-136 U/L Myoglobin 54.8 10.0-92.0 NG/ML Troponin I < 0.028 < 0.028 < 0.028 <0.028 NG/ML Total Protein 6.5 6.4-8.2 GM/DL Albumin 3.6 3.2-4.5 GM/DL Influenza Type A (RT-PCR) Not Detected Not Detecte Influenza Type B (RT-PCR) Not Detected Not Detecte SARS-CoV-2 RNA (RT-PCR) Not Detected Not Detecte (MARGARET HDEZ) My Orders Orders - MARGARET HDEZ Lidocaine 2% Viscous 15 Ml (Xylocaine Vi (03/11/21 07:15) Famotidine Tablet (Pepcid Tablet) (03/11/21 07:01) Antacid Suspension (Mylanta Suspension (03/11/21 07:15) Troponin I (03/11/21 07:45) Ekg Tracing (03/11/21 07:45) Morphine Injection (Morphine Injection (03/11/21 07:45) Troponin I (03/11/21 10:00) General/Regular (03/11/21 Breakfast) (MARGARET HDEZ) Medications Given in ED Current Medications Medications Dose Ordered Sig/Sara Route Start Time Stop Time Status Last Admin Dose Admin Al Hydrox/Mg Hydrox/Simethicone 30 ml ONCE ONCE PO 03/11/21 07:15 03/11/21 07:17 DC 03/11/21 07:12 30 ML Fentanyl Citrate 50 mcg ONCE ONCE IVP 03/11/21 05:45 03/11/21 05:46 DC 03/11/21 05:51 50 MCG Iohexol 100 ml ONCE ONCE IV 03/11/21 07:15 03/11/21 07:20 DC 03/11/21 07:07 100 ML Lidocaine HCl 15 ml ONCE ONCE PO 03/11/21 07:15 03/11/21 07:17 DC 03/11/21 07:12 15 ML Sodium Chloride 80 ml ONCE ONCE IV 03/11/21 07:15 03/11/21 07:20 DC 03/11/21 07:07 80 ML (MARGARET HDEZ) Vital Signs/I&O 03/11/21 05:29 Temp 36.9 Pulse 72 Resp 16 B/P (MAP) 133/95 (108) O2 Delivery Room Air (MARGARET HDEZ) Blood Pressure Mean: 108 Progress Progress Note : Progress Note Patient was seen and examined. Pain seems to be more pleuritic in nature so D- dimer was added to the work-up. D-dimer was elevated and CT angiogram is pending. Fentanyl was given for pain but was not effective. This will be f ollowed by morphine. Initial troponin and EKG were negative. (DORA ROMERO MD) Progress Note : Time: 08:11 Progress Note Assumed care of the patient shortly after shift change. Initially she had received nitroglycerin at home as well as by EMS which did nothing but dropped her blood pressure. She has since recovered event. She was given a dose of fentanyl which did nothing for her pain and a subsequent dose of 4 mg morphine which did nothing for her pain. She has a history of erosive esophagitis so we gave her a GI cocktail which she says did nothing for pain. An order for 6 mg morphine was given. We repeated an EKG which was unrevealing and troponin which is about 4 hours after her event started at 4:00. (MARGARET HDEZ) Initial ECG Impression Date: Mar 11, 2021 Initial ECG Impression Time: 05:30 Initial ECG Rate: 72 Initial ECG Rhythm: Normal Sinus Initial ECG Intervals: Normal Initial ECG Impression: Normal Comment Normal sinus rhythm with no ST elevation or depression. No abnormal intervals or axis deviation. (DORA ROMERO MD) EKG : EKG Time: 07:57 Rate: 63 Rhythm: Normal Sinus Intervals: Normal ECG Comparisson: Unchanged ECG Impression: Normal, Nonspecific Changes Comment Normal sinus rhythm. Preserved Q waves. No clinically relevant ST elevation or depression. (MARGARET HDEZ) Diagnostic Imaging Diagonstic Imaging: CT Plain Films/CT/US/NM/MRI: chest Comments [facility] [place], [place] NAME: WAN DA SILVA [facility] REC#: [id number] PT STATUS: REG ER : 1975 PHYSICIAN: DORA ROMERO MD ADMIT DATE: 03/11/21/ER Draft Date of Exam:03/11/21 CT ANGIO CHEST W PROCEDURE: CT angiography of the chest with contrast. TECHNIQUE: Multiple contiguous axial images were obtained through the chest after uneventful bolus administration of intravenous contrast. 3D reconstructed CTA MIP acquisitions were also performed. Auto Exposure Controls were utilized during the CT exam to meet ALARA standards for radiation dose reduction. INDICATION: Chest pain There are postoperative changes from CABG surgery. There is no evidence of aortic aneurysm or dissection. There is coronary atherosclerosis. There is no right ventricular strain. There are no pulmonary emboli seen. There is no hilar or mediastinal lymphadenopathy. Lungs are clear. There are no effusions or pneumothoraces. There is a hiatal hernia. IMPRESSION: Sliding hiatal hernia. Unremarkable CTA chest. Dictated on workstation # [id number] Dict: 03/11/21 0711 Trans: 03/11/21 0713 [facility] [id number] Interpreted by: IMER KIMBALL MD Electronically signed by: Reviewed: Reviewed by Me (MARGARET HDEZ) Consults : Consulting Physician: JIMENA AGUILAR MD FACP FAC CCDS Consults Notes Discussed the case with Dr. Aguilar her personal manager photography and he is familiar with the patient. He states that if she has a troponin and 6 hours after the start of her pain, 10:00 in the morning still negative then he would be fine to let her go because he suspects this is a noncardiogenic chest pain. Patient is in agreement with this plan. He will follow her up in the clinic. (MARGARET HDEZ) Departure Impression Primary Impression: Chest wall pain Disposition: 01 HOME, SELF-CARE Condition: Stable Departure-Patient Inst. Decision time for Depature: 10:32 (MARGARET HDEZ) Referrals: JIMENA AGUILAR MD [facility] EDWAR LOBO DO (PCP/Family) Primary Care Physician Patient Instructions: Chest Pain That Is Not Caused by the Heart (DC), Opioids for Short-Term Treatment of Pain ED Add. Discharge Instructions: Topical creams and Tylenol as necessary for pain. If the pain becomes intractable then you may use hydrocodone 1 tablet every 6 hours. Hydrocodone will cause constipation and drowsiness. I recommend some MiraLAX or Colace to stay regular. Call your manager photography and make a follow-up appointment next week. All discharge instructions reviewed with patient and/or family. Voiced understanding. Scripts Hydrocodone/Acetaminophen (Hydrocodone-Acetamin 7.5-325) 1 Each Tablet 1 EACH PO Q6H PRN for PAIN-BREAKTHROUGH, #15 TAB 0 Refills Prov: MARGARET HDEZ 03/11/21 Copy Copies To 1: [facility]ILAR [facility] Mar 11, 2021 06:26 MARGARET HDEZ Mar 11, 2021 08:15
[2021-03-11] MEDS ORDERED: FAMOTIDINE 20 MG (PEPCID) TABLET PO STA (07:01)
--- NOTE | 2021-03-11 07:13 | Diagnostic Imaging Report ---
PROCEDURE: CT angiography of the chest with contrast. TECHNIQUE: Multiple contiguous axial images were obtained through the chest after uneventful bolus administration of intravenous contrast. 3D reconstructed CTA MIP acquisitions were also performed. Auto Exposure Controls were utilized during the CT exam to meet ALARA standards for radiation dose reduction. INDICATION: Chest pain There are postoperative changes from CABG surgery. There is no evidence of aortic aneurysm or dissection. There is coronary atherosclerosis. There is no right ventricular strain. There are no pulmonary emboli seen. There is no hilar or mediastinal lymphadenopathy. Lungs are clear. There are no effusions or pneumothoraces. There is a hiatal hernia. IMPRESSION: Sliding hiatal hernia. Unremarkable CTA chest. Dictated by: Dictated on workstation # [id number]
[2021-03-11] MEDS ORDERED: IOHEXOL 350 MG/ML 100 ML (OMNIPAQUE 350) VIAL IV ONE (07:15)
[2021-03-11] MEDS ORDERED: ANTACID SUSP 30 ML UDC (MYLANTA) PO ONE (07:15)
[2021-03-11] MEDS ORDERED: LIDOCAINE 2% VISCOUS 15 ML UDC PO ONE (07:15)
[2021-03-11] MEDS ORDERED: NS 100 ML (IVPB) BAG IV ONE (07:15)
[2021-03-11] MEDS ORDERED: HYDR-3817 PO (10:34)
[2021-03-11 10:45] VITALS: BP 115/80
== END 2021-03-11 10:50 | disposition home or self-care (01) ==
LOC: EDUNIT# 05:25 → ER 05:26
DX: R07.89 Other chest pain (principal); J44.9 Chronic obstructive pulmonary disease, unspecified; E66.9 Obesity, unspecified; K21.9 Gastro-esophageal reflux disease without esophagitis; F41.9 Anxiety disorder, unspecified; F32.9 Major depressive disorder, single episode, unspecified; E11.9 Type 2 diabetes mellitus without complications; I25.10 Atherosclerotic heart disease of native coronary artery without angina pectoris; E03.9 Hypothyroidism, unspecified; Z68.45 Body mass index [BMI] 70 or greater, adult; Z20.822 Contact with and (suspected) exposure to COVID-19; Z79.899 Other long term (current) drug therapy; Z79.890 Hormone replacement therapy; Z95.1 Presence of aortocoronary bypass graft; Z79.82 Long term (current) use of aspirin; F17.210 Nicotine dependence, cigarettes, uncomplicated
CPT/HCPCS: 36415; 71275; 80053; 83735; 83874; 84484; 85025; 85379; 85610; 85730; 87636; 93005; 93041

== ENCOUNTER 2021-03-18 16:12 | Emergency (ER) | payer MEDICARE, MEDICAID ==
[~2021-03-18] VITALS: Ht 172 cm; Wt 97.7 kg
[~2021-03-18 16:12] MED LIST changes: +HYDR-3817 PO
[2021-03-18 16:21] VITALS: BP 114/69
[2021-03-18] MEDS ORDERED: HYDROcodone/APAP 5 MG/325 MG (LORTAB) TAB PO ONE (16:30)
--- NOTE | 2021-03-18 16:39 | Diagnostic Imaging Report ---
INDICATION: Pain to the knee. Trauma. Injury. COMPARISON: None. FINDINGS: 3 views of the left knee joint demonstrate no acute fracture or dislocation. No focal osseous lesions are seen. No significant joint effusion is seen. The surrounding soft tissue structures are unremarkable. There are no radiopaque foreign bodies. IMPRESSION: 1. No acute fractures or dislocations of the left knee joint. Dictated by: Dictated on workstation # [id number]
--- NOTE | 2021-03-18 17:01 | ED Lower Extremity ---
General Chief Complaint: Lower Extremity Stated Complaint: KNEE PAIN Source: patient Exam Limitations: no limitations (TAD KENNEDY APRN) History of Present Illness Date Seen by Provider: Mar 18, 2021 Time Seen by Provider: 16:21 Initial Comments This is a well-appearing 45-year-old female who presents to the ER via [facility] with complaints of left knee pain after falling prior to arrival. States that she was walking upstairs and condensation from her AC was on the floor causing her to slip and "do the splits" causing her left knee to land on the concrete floor. States she was unable to get up or bear weight on her left leg, so she called EMS. Pain is sharp, constant, and localized to her anterior knee. Rates 05/29. Denies any other injuries including head/neck sustained during fall. No other complaints. (TAD KENNEDY APRN) Allergies and Home Medications Allergies Coded Allergies: Penicillins (Verified Allergy, Unknown, 11/05/06) Sulfa (Sulfonamide Antibiotics) (Verified Allergy, Unknown, 11/05/06) naproxen (Verified Allergy, Unknown, HIVES, NAUSEA--can take ibuprofen, 06/01/20) Home Medications Aripiprazole 15 Mg Tablet, 7.5 MG PO DAILY, (Reported) LAST FILLED 11-15-2020 #15/30 TAKES OF A 15MG TAB Aspirin 81 Mg Tab.chew, 81 MG PO ONCE Prescribed by: DAVID ERNST on 02/04/21 1017 Atorvastatin Calcium 80 Mg Tablet, 80 MG PO DAILY, (Reported) LAST FILLED 11-15-2020 #30/30 Azithromycin 250 Mg Tablet, 250 MG PO DAILY Prescribed by: MITCHELL LEBRON on 02/04/21 1135 Cephalexin 500 Mg Tablet, 500 MG PO BID Prescribed by: MITCHELL LEBRON on 02/04/21 1135 Hydrocodone/Acetaminophen 1 Each Tablet, 1 EACH PO Q6H PRN for PAIN-BREAKTHROUGH Prescribed by: MARGARET HDEZ on 03/11/21 1037 Hydroxyzine HCl 25 Mg Tablet, 25 MG PO BID PRN for ANXIETY, (Reported) Ibuprofen 200 Mg Tablet, 400 MG PO Q8H PRN for PAIN-MILD (1-4), (Reported) Levothyroxine Sodium 100 Mcg Capsule, 100 MCG PO DAILY, (Reported) LAST FILLED 11-15-2020 #30/30 Metoprolol Tartrate 25 Mg Tablet, 12.5 MG PO BID Prescribed by: DAVID ERNST on 02/04/21 1021 Pantoprazole Sodium 40 Mg Tablet.dr, 40 MG PO DAILY Prescribed by: DAVID ERNST on 02/04/21 1021 Sertraline HCl 100 Mg Tablet, 100 MG PO DAILY, (Reported) LAST FILLED 11-15-2020 #30/30 Ticagrelor 90 Mg Tablet, 90 MG PO BID Prescribed by: MITCHELL LEBRON on 04/24/20 1014 Zolpidem Tartrate 5 Mg Tablet, 5 MG PO HS PRN for SLEEP, (Reported) Patient Home Medication List Home Medication List Reviewed: Yes (TAD KENNEDY APRN) Review of Systems Constitutional: no symptoms reported EENTM: no symptoms reported Respiratory: no symptoms reported Cardiovascular: no symptoms reported Gastrointestinal: no symptoms reported Genitourinary: no symptoms reported Musculoskeletal: see HPI Skin: see HPI Psychiatric/Neurological: No Symptoms Reported (TAD KENNEDY APRN) Past Epnevno-Cdcgte-Hrpoek Hx Immunizations Up To Date Tetanus Booster (TDap): More than 5yrs (TAD KENNEDY APRN) Seasonal Allergies Seasonal Allergies: No (TAD KENNEDY APRN) Past Medical History Surgery/Hospitalization HX: OPEN HEART SX AT [facility] 2009 Surgeries: No Abdominal, Adenoidectomy, Cardiac, CABG, Coronary Stent, Ear Surgery, Ga llbladder, Orthopedic, Tonsillectomy Respiratory: Yes Asthma, Chronic Bronchitis, COPD Cardiac: Yes (OPEN HEART SURGERY 2009) Coronary Artery Disease Neurological: No Headaches /Migraines, Seizure Disorder Reproductive Disorders: Yes (HX CERVICAL CANCER) Sexually Transmitted Disease: Yes (HERPES) Genitourinary: No Gastrointestinal: Yes Gastroesophageal Reflux, Esophagitis, Hiatal Hernia, Gall Bladder Disease Musculoskeletal: Yes Arthritis Endocrine: Yes Hypothyroidsim, Diabetes, Non-Insulin dep HEENT: Yes Chronic Ear Infection Hearing Impairment: Hard of Hearing Cancer: No Cervical Did You Recieve Any Treatments: Yes What Type of Treatment Did You: Surgical Intervention Psychosocial: Yes Sleep Difficulties, Anxiety, Suicide Attempts, Depression Integumentary: No Blood Disorders: No Adverse Reaction/Blood Tranf: No (TAD KENNEDY APRN) Family Medical History ADDITIONAL PAST MEDICAL AND PROCEDURAL HISTORY: -PT HAD NSTEMI AND WAS ADMITTED 09/03/20-04/24/20, HAD CARDIAC CATH 04/23/20 AND HAD STENT X 1 TO RCA -PT HAS PREVIOUSLY HAD A CABG IN 2009, MULTIPLE STENTS TO RCA, AND STENT TO CIRCUMFLEX IN THE PAST. -CARDIAC CATH 05/08/[address] 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 Patent stents in the right coronary artery was small vessel disease distally 2. 50 percent proximal stenosis in the vein graft to the diagonal artery, small vessel disease distally 3. Mild to moderate disease in the left coronary system, nonobstructive disease 4. Elevated left ventricular end-diastolic pressure DISCUSSION AND RECOMMENDATION: Coronary anatomy has not changed significantly compared to the study of April 24, 2020. Elevated troponin is probably due to small vessel disease, conservative management is recommended (TAD KENNEDY APRN) Physical Exam Vital Signs Vital Signs - First Documented 03/18/21 16:21 Temp 36.0 Pulse 86 Resp 18 B/P (MAP) 114/69 (84) Pulse Ox 100 (DORA ROMERO MD) Vital Signs Capillary Refill : (TAD KENNEDY APRN) Height, Weight, BMI Height: 5'8.00" Weight: 189lbs. 0.0oz. 85.204256dl; BMI Method:Stated General Appearance: WD/WN, no apparent distress Neck: full range of motion, normal inspection Knees: right knee non-tender, right knee normal inspection, right knee normal range of motion, right knee no evidence of injury; left knee ecchymosis, left knee pain, left knee swelling, left knee other (superficial abrasion. Anterior/posterior/lateral/medial neg for laxity. Neg for ballottement. ) Ankles: bilateral ankle non-tender, bilateral ankle normal inspection, bilateral ankle normal range of motion, bilateral ankle no evidence of injury Neurologic/Tendon: normal sensation, normal motor functions Neurologic/Psychiatric: no motor/sensory deficits, alert, normal mood/affect, oriented x 3 Skin: normal color, warm/dry (TAD KENNEDY APRN) Progress/Results/Core Measures Results/Orders My Orders Orders - DORA ROMERO MD Knee, Left, 3 Views (03/18/21 16:21) Hydrocodone/Apap 5/325 Tablet (Lortab 5 (03/18/21 16:30) (DORA ROMERO MD) Vital Signs/I&O 03/18/21 16:21 Temp 36.0 Pulse 86 Resp 18 B/P (MAP) 114/69 (84) Pulse Ox 100 (DORA ROMERO MD) Progress Progress Note : Progress Note Patient examined and in no acute distress. Ice pack provided. Orders placed for Hydrocodone for pain and images of the left knee ordered. X-rays show no acute pathology. Discussed with patient that she likely has a contusion of he knee, however if her symptoms persist despite conservative treatment then she needs to follow up with her primary care provider. Cleansed abrasion with saline and chlorhexadine wash, covered with non adherent telfa and quinton wrap. Tolerated well. Reviewed discharge POC and she is agreeable with plan. (TAD KENNEDY APRN) Diagnostic Imaging Diagonstic Imaging: Xray Plain Films/CT/US/NM/MRI: knee Comments [facility], [place] NAME: WAN DA SILVA [facility] REC#: [id number] PT STATUS: REG ER : 1975 PHYSICIAN: DORA ROMERO MD ADMIT DATE: 03/18/21/ER Draft Date of Exam:03/18/21 KNEE, LEFT, 3 VIEWS INDICATION: Pain to the knee. Trauma. Injury. COMPARISON: None. FINDINGS: 3 views of the left knee joint demonstrate no acute fracture or dislocation. No focal osseous lesions are seen. No significant joint effusion is seen. The surrounding soft tissue structures are unremarkable. There are no radiopaque foreign bodies. IMPRESSION: 1. No acute fractures or dislocations of the left knee joint. Dictated on workstation # [id number] Dict: 03/18/21 1637 Trans: 03/18/21 1638 [facility] [id number] Interpreted by: JAYSON DANIELS MD Electronically signed by: Reviewed: Reviewed by Me (TAD KENNEDY APRN) Departure Impression Primary Impression: Contusion of knee Disposition: HOME, SELF-CARE Condition: Improved Departure-Patient Inst. Decision time for Depature: 16:57 (TAD KENNEDY APRN) Referrals: EDWAR LOBO DO (PCP/Family) Primary Care Physician Patient Instructions: Contusion (DC) Add. Discharge Instructions: Plan: 1. Rest. Use ice 20 minutes at a time 4-6x a day to your left knee. 2. Keep leg elevated above your heart whenever you are sitting to reduce swelling. 3. Use quinton wrap daily for comfort and swelling. May use Tylenol/ibuprofen as needed for pain per package. 4. Wash abrasion twice a day with soap and water, pat dry, cover with dry dressing. 5. Follow up with your doctor if your symptoms persist. 6. Use crutches for weight bearing as tolerated. 7. Return for any new, concerning, or worsening symptms. All discharge instructions reviewed with patient and/or family. Voiced understanding. ATTENDING PHYSICIAN NOTE: I was physically present as attending physician in the emergency department during the care of this patient, and I evaluated patient upon her arrival. She was found to have edema and a break in the skin at the inferior aspect of the patella. There was generalized tenderness to palpation in this area. She was stating difficulty with ambulation. X-rays were ordered and care was transition to tad Kennedy NP. (DORA ROMERO MD) TAD KENNEDY APRN Mar 18, 2021 17:01 DORA ROMERO MD Mar 19, 2021 14:58
== END 2021-03-18 17:33 ==
LOC: EDUNIT# 16:12 → ER 16:13
DX: S80.01XA Contusion of right knee, initial encounter (principal); J44.9 Chronic obstructive pulmonary disease, unspecified; E11.9 Type 2 diabetes mellitus without complications; I25.10 Atherosclerotic heart disease of native coronary artery without angina pectoris; K21.9 Gastro-esophageal reflux disease without esophagitis; E03.9 Hypothyroidism, unspecified; F41.9 Anxiety disorder, unspecified; F32.9 Major depressive disorder, single episode, unspecified; G47.9 Sleep disorder, unspecified; Z95.1 Presence of aortocoronary bypass graft; Z95.5 Presence of coronary angioplasty implant and graft; Z79.82 Long term (current) use of aspirin; Z79.890 Hormone replacement therapy; Z79.899 Other long term (current) drug therapy; Z88.6 Allergy status to analgesic agent; W10.9XXA Fall (on) (from) unspecified stairs and steps, initial encounter
CPT/HCPCS: 73562; 99283

== ENCOUNTER 2021-03-26 16:06 | Emergency (ER) | payer MEDICARE, MEDICAID ==
[~2021-03-26] VITALS: Ht 172 cm; Wt 97.7 kg
[2021-03-26 16:31] LABS: BASOPHILS # (AUTO) 0.1 10^3/uL (0.0-0.1); BASOPHILS % (AUTO) 1 % (0-10); EOSINOPHILS # (AUTO) 1.6 10^3/uL (0.0-0.3); EOSINOPHILS % (AUTO) 19 % (0-10); HEMATOCRIT 40 % (35-52); HEMOGLOBIN 13.8 g/dL (11.5-16.0); LYMPHOCYTES # (AUTO) 2.6 10^3/uL (1.0-4.0); LYMPHOCYTES % (AUTO) 30 % (12-44); MEAN CORPUSCULAR HEMOGLOBIN 33 pg (25-34); MEAN CORPUSCULAR HGB CONC 35 g/dL (32-36); MEAN CORPUSCULAR VOLUME 93 fL (80-99); MEAN PLATELET VOLUME 10.9 fL (9.0-12.2); MONOCYTES # (AUTO) 0.5 10^3/uL (0.0-1.0); MONOCYTES % (AUTO) 6 % (0-12); NEUTROPHILS # (AUTO) 3.8 10^3/uL (1.8-7.8); NEUTROPHILS % (AUTO) 44 % (42-75); PLATELET COUNT 291 10^3/uL (130-400); WHITE BLOOD COUNT 8.7 10^3/uL (4.3-11.0)
[2021-03-26 16:32] LABS: ALBUMIN 3.8 GM/DL (3.2-4.5)
[2021-03-26 16:33] LABS: POTASSIUM 3.8 MMOL/L (3.6-5.0)
[2021-03-26 16:34] LABS: CALCIUM 8.9 MG/DL (8.5-10.1)
[2021-03-26 16:35] LABS: TOTAL PROTEIN 6.6 GM/DL (6.4-8.2)
[2021-03-26 16:36] LABS: PROTHROMBIN TIME PATIENT 13.6 SEC (12.2-14.7)
[2021-03-26 16:37] LABS: BILIRUBIN,TOTAL 0.8 MG/DL (0.1-1.0)
[2021-03-26 16:39] LABS: CREATININE SERUM 0.84 MG/DL (0.60-1.30)
[2021-03-26 16:42] LABS: MAGNESIUM 1.8 MG/DL (1.6-2.4)
[2021-03-26 16:52] LABS: BAND NEUTROPHILS 0 %; BASOPHILS % (MANUAL) 0 %; EOSINOPHILS % (MANUAL) 13 %; LYMPHOCYTES % (MANUAL) 50 %; MONOCYTES % (MANUAL) 3 %; NEUTROPHILS % (MANUAL) 34 %; RBC MORPH NORMAL
--- NOTE | 2021-03-26 16:58 | ED Chest Pain ---
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 Source: patient Exam Limitations: no limitations History of Present Illness Date Seen by Provider: Mar 26, 2021 Time Seen by Provider: 16:56 Initial Comments To ER with central chest pain that began 45 minutes ago while at rest sitting on her front porch at home. History of coronary artery disease with coronary stenting. EMS gave aspirin in route to the hospital. Timing/Duration: changing over time Severity/Quality: moderate Location: central Radiation: no radiation Activities at Onset: none ASA po E MARKETING SPECIALIST: No NTG SL E MARKETING SPECIALIST: No Allergies and Home Medications Allergies Coded Allergies: Penicillins (Verified Allergy, Unknown, 11/05/06) Sulfa (Sulfonamide Antibiotics) (Verified Allergy, Unknown, 11/05/06) naproxen (Verified Allergy, Unknown, HIVES, NAUSEA--can take ibuprofen, 06/01/20) Home Medications Aripiprazole 15 Mg Tablet, 7.5 MG PO DAILY, (Reported) LAST FILLED 11-15-2020 #15/30 TAKES OF A 15MG TAB Aspirin 81 Mg Tab.chew, 81 MG PO ONCE Prescribed by: DAVID ERNST on 02/04/21 1017 Atorvastatin Calcium 80 Mg Tablet, 80 MG PO DAILY, (Reported) LAST FILLED 11-15-2020 #30/30 Azithromycin 250 Mg Tablet, 250 MG PO DAILY Prescribed by: MITCHELL LEBRON on 02/04/21 1135 Cephalexin 500 Mg Tablet, 500 MG PO BID Prescribed by: MITCHELL LEBRON on 02/04/21 1135 Hydrocodone/Acetaminophen 1 Each Tablet, 1 EACH PO Q6H PRN for PAIN-BREAKTHROUGH Prescribed by: MARGARET HDEZ on 03/11/21 1037 Hydroxyzine HCl 25 Mg Tablet, 25 MG PO BID PRN for ANXIETY, (Reported) Ibuprofen 200 Mg Tablet, 400 MG PO Q8H PRN for PAIN-MILD (1-4), (Reported) Levothyroxine Sodium 100 Mcg Capsule, 100 MCG PO DAILY, (Reported) LAST FILLED 11-15-2020 #30/30 Metoprolol Tartrate 25 Mg Tablet, 12.5 MG PO BID Prescribed by: DAVID ERNST on 02/04/21 1021 Pantoprazole Sodium 40 Mg Tablet.dr, 40 MG PO DAILY Prescribed by: DAVID ERNST on 02/04/21 1021 Sertraline HCl 100 Mg Tablet, 100 MG PO DAILY, (Reported) LAST FILLED 11-15-2020 #30/30 Ticagrelor 90 Mg Tablet, 90 MG PO BID Prescribed by: MITCHELL LEBRON on 04/24/20 1014 Zolpidem Tartrate 5 Mg Tablet, 5 MG PO HS PRN for SLEEP, (Reported) Patient Home Medication List Home Medication List Reviewed: Yes Review of Systems Review of Systems Constitutional: see HPI EENTM: No Symptoms Reported Respiratory: See HPI Cardiovascular: See HPI, Chest Pain Gastrointestinal: No Symptoms Reported Genitourinary: No Symptoms Reported Musculoskeletal: no symptoms reported Skin: no symptoms reported Psychiatric/Neurological: No Symptoms Reported Endocrine: No Symptoms Reported Hematologic/Lymphatic: No Symptoms Reported Past Ihypxvt-Qxhtlp-Mkncpn Hx Patient Social History Tobacco Use?: Yes Tobacco type used: Cigarettes Smoking Status: Current Everyday Smoker Substance use?: No Alcohol Use?: No Pt feels they are or have been: No Immunizations Up To Date Tetanus Booster (TDap): More than 5yrs Seasonal Allergies Seasonal Allergies: No Past Medical History Surgery/Hospitalization HX: OPEN HEART SX AT [facility] 2010, [place], PMH: DM2, COPD Surgeries: No Abdominal, Adenoidectomy, Cardiac, CABG, Coronary Stent, Ear Surgery, Gallbladder, Orthopedic, Tonsillectomy Respiratory: Yes Asthma, Chronic Bronchitis, COPD Cardiac: Yes (OPEN HEART SURGERY 2009) Coronary Artery Disease Neurological: No Headaches /Migraines, Seizure Disorder Reproductive Disorders: Yes (HX CERVICAL CANCER) Sexually Transmitted Disease: Yes (HERPES) Genitourinary: No Gastrointestinal: Yes Gastroesophageal Reflux, Esophagitis, Hiatal Hernia, Gall Bladder Disease Musculoskeletal: Yes Arthritis Endocrine: Yes Hypothyroidsim, Diabetes, Non-Insulin dep HEENT: Yes Chronic Ear Infection Hearing Impairment: Hard of Hearing Cancer: No Cervical Did You Recieve Any Treatments: Yes What Type of Treatment Did You: Surgical Intervention Psychosocial: Yes Sleep Difficulties, Anxiety, Suicide Attempts, Depression Integumentary: No Blood Disorders: No Adverse Reaction/Blood Tranf: No Family Medical History ADDITIONAL PAST MEDICAL AND PROCEDURAL HISTORY: -PT HAD NSTEMI AND WAS ADMITTED 04/22/20-04/24/20, HAD CARDIAC CATH 04/23/20 AND HAD STENT X 1 TO RCA -PT HAS PREVIOUSLY HAD A CABG IN 2009, MULTIPLE STENTS TO RCA, AND STENT TO CIRCUMFLEX IN THE PAST. -CARDIAC CATH 05/08/[address] 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 Patent stents in the right coronary artery was small vessel disease distally 2. 50 percent proximal stenosis in the vein graft to the diagonal artery, small vessel disease distally 3. Mild to moderate disease in the left coronary system, nonobstructive disease 4. Elevated left ventricular end-diastolic pressure DISCUSSION AND RECOMMENDATION: Coronary anatomy has not changed significantly compared to the study of April 24, 2020. Elevated troponin is probably due to small vessel disease, conservative management is recommended Physical Exam Vital Signs Vital Signs - First Documented 03/26/21 03/26/21 16:09 16:14 Temp 36.3 Pulse 85 Resp 18 B/P (MAP) 138/94 (109) Pulse Ox 97 O2 Delivery Room Air Capillary Refill : Less Than 3 Seconds Height, Weight, BMI Height: 5'8.00" Weight: 189lbs. 0.0oz. 85.816711vo; 33.00 BMI Method:Stated General Appearance: No Apparent Distress, WD/WN Neck: Full Range of Motion, Normal Inspection Respiratory: Normal Breath Sounds (Comes in), No Accessory Muscle Use, No Respiratory Distress Cardiovascular: Regular Rate, Rhythm, Normal Peripheral Pulses Gastrointestinal: Normal Bowel Sounds, Non Tender, Soft Neurologic/Psychiatric: Alert, Oriented x3 Skin: Normal Color, Warm/Dry Progress/Results/Core Measures Results/Orders Lab Results Laboratory Tests Test 03/26/21 16:12 03/26/21 18:20 Range/Units White Blood Count 8.7 4.3-11.0 10^3/uL Red Blood Count 4.25 3.80-5.11 10^6/uL Hemoglobin 13.8 11.5-16.0 g/dL Hematocrit 40 35-52 % Mean Corpuscular Volume 93 80-99 fL Mean Corpuscular Hemoglobin 33 25-34 pg Mean Corpuscular Hemoglobin Concent 35 32-36 g/dL Red Cell Distribution Width 13.0 10.0-14.5 % Platelet Count 291 130-400 10^3/uL Mean Platelet Volume 10.9 9.0-12.2 fL Immature Granulocyte % (Auto) 0 % Neutrophils (%) (Auto) 44 42-75 % Lymphocytes (%) (Auto) 30 12-44 % Monocytes (%) (Auto) 6 0-12 % Eosinophils (%) (Auto) 19 H 0-10 % Basophils (%) (Auto) 1 0-10 % Neutrophils # (Auto) 3.8 1.8-7.8 10^3/uL Lymphocytes # (Auto) 2.6 1.0-4.0 10^3/uL Monocytes # (Auto) 0.5 0.0-1.0 10^3/uL Eosinophils # (Auto) 1.6 H 0.0-0.3 10^3/uL Basophils # (Auto) 0.1 0.0-0.1 10^3/uL Immature Granulocyte # (Auto) 0.0 0.0-0.1 10^3/uL Neutrophils % (Manual) 34 % Lymphocytes % (Manual) 50 % Monocytes % (Manual) 3 % Eosinophils % (Manual) 13 % Basophils % (Manual) 0 % Band Neutrophils 0 % Blood Morphology Comment NORMAL Prothrombin Time 13.6 12.2-14.7 SEC INR Comment 1.0 0.8-1.4 Activated Partial Thromboplast Time 30 24-35 SEC D-Dimer 1.20 H 0.00-0.49 UG/ML Sodium Level 141 135-145 MMOL/L Potassium Level 3.8 3.6-5.0 MMOL/L Chloride Level 109 H 98-107 MMOL/L Carbon Dioxide Level 21 21-32 MMOL/L Anion Gap 11 5-14 MMOL/L Blood Urea Nitrogen 17 7-18 MG/DL Creatinine 0.84 0.60-1.30 MG/DL Estimat Glomerular Filtration Rate 73 BUN/Creatinine Ratio 20 Glucose Level 256 H 70-105 MG/DL Calcium Level 8.9 8.5-10.1 MG/DL Corrected Calcium 9.1 8.5-10.1 MG/DL Magnesium Level 1.8 1.6-2.4 MG/DL Total Bilirubin 0.8 0.1-1.0 MG/DL Aspartate Amino Transf (AST/SGOT) 14 5-34 U/L Alanine Aminotransferase (ALT/SGPT) 20 0-55 U/L Alkaline Phosphatase 110 40-136 U/L Myoglobin 36.7 10.0-92.0 NG/ML Troponin I < 0.028 0.028 <0.028 NG/ML Total Protein 6.6 6.4-8.2 GM/DL Albumin 3.8 3.2-4.5 GM/DL My Orders Orders - TAMRA CABALLERO [employer] Ct Angio Chest W (03/26/21 16:53) Nitroglycerin 0.4 Mg Btl 25's (Nitrostat (03/26/21 17:00) Ondansetron Injection (Zofran Injectio (03/26/21 17:00) Iohexol Injection (Omnipaque 350 Mg/Ml 1 (03/26/21 17:15) Received Contrast (Hold Metformin- Contr (03/26/21 17:15) Ns (Ivpb) (Sodium Chloride 0.9% Ivpb Bag (03/26/21 17:15) Hydrocodone/Apap 5/325 Tablet (Lortab 5 (03/26/21 17:30) Ketorolac Injection (Toradol Injection) (03/26/21 18:30) Troponin I (03/26/21 18:19) Medications Given in ED Current Medications Medications Dose Ordered Sig/Sara Route Start Time Stop Time Status Last Admin Dose Admin Acetaminophen/ Hydrocodone Bitart 1 ea ONCE ONCE PO 03/26/21 17:30 03/26/21 17:31 DC 03/26/21 17:43 1 EA Iohexol 100 ml ONCE ONCE IV 03/26/21 17:15 03/26/21 17:16 DC 03/26/21 17:51 81 ML Ketorolac Tromethamine 15 mg ONCE ONCE IVP 03/26/21 18:30 03/26/21 18:31 DC 03/26/21 18:25 15 MG Nitroglycerin NEEDED PRN SL 03/26/21 17:00 03/26/21 17:04 0.4 MG Ondansetron HCl 4 mg ONCE ONCE IVP 03/26/21 17:00 03/26/21 17:01 DC 03/26/21 17:04 4 MG Sodium Chloride 100 ml ONCE ONCE IV 03/26/21 17:15 03/26/21 17:16 DC 03/26/21 17:51 80 ML Vital Signs/I&O 03/26/21 03/26/21 16:09 16:14 Temp 36.3 Pulse 85 Resp 18 B/P (MAP) 138/94 (109) Pulse Ox 97 O2 Delivery Room Air Blood Pressure Mean: 109 Departure Communication (Admissions) 1853-sleeping at this time. Discussed with her that we would send her home given the negative troponin x2.. She is agreeable with this plan Impression Primary Impression: Chest pain Additional Impression: CAD (coronary artery disease) Disposition: HOME, SELF-CARE Condition: Stable Departure-Patient Inst. Decision time for Depature: 18:49 Referrals: EDWAR LOBO DO (PCP/Family) Primary Care Physician Patient Instructions: Chest Pain TAMRA CABALLERO APRN Mar 26, 2021 16:58
[2021-03-26] MEDS ORDERED: NITROGLYCERIN 0.4 MG SL TABS BTL 25'S SL PRN (17:00)
[2021-03-26] MEDS ORDERED: ONDANSETRON 4 MG/2 ML (SDV) Z0FRAN IVP ONE (17:00)
--- NOTE | 2021-03-26 17:05 | Diagnostic Imaging Report ---
EXAM: CHEST 1 VIEW, AP/PA ONLY INDICATION: Chest pain. COMPARISON: Chest radiograph 02/27/2021. FINDINGS: Normal heart size and central pulmonary vascularity. Sternotomy. No focal pulmonary opacity. No pleural effusion or pneumothorax. No acute osseous finding. IMPRESSION: No acute cardiopulmonary finding. Dictated by: Dictated on workstation # [id number]
[2021-03-26] MEDS ORDERED: HOLD METFORMIN - RECEIVED CONTRAST 20 ML VIAL IV SCH (17:15)
[2021-03-26] MEDS ORDERED: NS 100 ML (IVPB) BAG IV ONE (17:15)
[2021-03-26] MEDS ORDERED: IOHEXOL 350 MG/ML 100 ML (OMNIPAQUE 350) VIAL IV ONE (17:15)
[2021-03-26] MEDS ORDERED: HYDROcodone/APAP 5 MG/325 MG (LORTAB) TAB PO ONE (17:30)
--- NOTE | 2021-03-26 18:23 | Diagnostic Imaging Report ---
INDICATION: Chest pain, elevated d-dimer. TECHNIQUE: Multiple contiguous axial images were obtained through the chest after uneventful bolus administration of intravenous contrast. 3D reconstructed CTA MIP acquisitions were also performed. Auto Exposure Controls were utilized during the CT exam to meet ALARA standards for radiation dose reduction. COMPARISON: 03/11/2021. FINDINGS: Prominent parenchymal vessels are well-opacified with no CT evidence of pulmonary emboli. There is no evidence of dissection or aneurysm. Great vessel origins are patent. There is no mediastinal or hilar adenopathy. Patient has had previous coronary artery bypass. There is no pleural or pericardial fluid. Visualized portions of the upper abdomen show no acute finding. Lung parenchymal windows show no overt consolidation. There is some mild bibasilar atelectatic changes. A small hiatal hernia is noted. IMPRESSION: No CT evidence of pulmonary emboli or acute finding. Stable appearance compared with 03/11/2021. Dictated by: Dictated on workstation # [id number]
[2021-03-26] MEDS ORDERED: KETOROLAC 30 MG/ML VIAL IVP ONE (18:30)
[2021-03-26 18:59] VITALS: BP 110/71
== END 2021-03-26 18:59 | disposition home or self-care (01) ==
LOC: EDUNIT# 16:06 → ER 16:07
DX: I25.10 Atherosclerotic heart disease of native coronary artery without angina pectoris (principal); J44.9 Chronic obstructive pulmonary disease, unspecified; E11.9 Type 2 diabetes mellitus without complications; K21.9 Gastro-esophageal reflux disease without esophagitis; E03.9 Hypothyroidism, unspecified; F41.9 Anxiety disorder, unspecified; F32.9 Major depressive disorder, single episode, unspecified; F17.210 Nicotine dependence, cigarettes, uncomplicated; Z95.5 Presence of coronary angioplasty implant and graft; Z95.1 Presence of aortocoronary bypass graft; Z79.890 Hormone replacement therapy; Z79.82 Long term (current) use of aspirin; Z79.899 Other long term (current) drug therapy
CPT/HCPCS: 36415; 71045; 71275; 80053; 83735; 83874; 84484; 85007; 85027; 85379; 85610; 85730; 93005; 93041; 96374; 96375

== ENCOUNTER 2021-04-08 17:47 | Emergency (ER) | payer MEDICARE, MEDICAID ==
[~2021-04-08] VITALS: Ht 172 cm; Wt 97.5 kg
--- NOTE | 2021-04-08 18:02 | ED Chest Pain ---
General Stated Complaint: CHEST PAIN Source: patient (VERY LIMITED HISTORIAN ABOUT PMH) History of Present Illness Date Seen by Provider: Apr 08, 2021 Time Seen by Provider: 17:45 Initial Comments PT ARRIVES VIA EMS FROM HOME C/O CHEST PAIN SINCE 1644 PAIN IS IN CENTER OF CHEST AND RADIATES TO LEFT CHEST AND DOWN LEFT ARM RATES PAIN 9/10 LEFT ARM FEELS A LITTLE NUMB AND TINGLY PAIN COMES AND GOES, BUT IS THERE MOST OF THE TIME STATES SHE WAS LAYING DOWN WHEN PAIN BEGAN STATES SHE HAS SLEPT ALL DAY, WOKE UP AT 1500, THEN WENT BACK TO SLEEP AND WOKE UP AROUND 1630 ( BUT LATER STATES SHE ATE BREAKFAST/LUNCH AROUND 1130 AM TODAY, AND HAS BEEN DRINKING ALOT OF WATER ALL DAY TODAY) + SHORTNESS OF BREATH + NAUSEA + SWEATS + SWELLING IN FEET / ANKLES NO DIZZINESS OR SYNCOPE NO PALPITATIONS NO FEVER OR RECENT ILLNESS NO COUGH OR URI SYMPTOMS PT HAS NOT HAD COVID-19 VACCINE NO KNOWN SICK CONTACTS PT HAS HISTORY OF CAD AND HAS HAD CABG IN 2009, FOLLOWED BY STENT IN 2019 PT TOOK NTG X 1 AT HOME WITHOUT RELIEF, BUT LATER STATES IT WAS AN OLD BOTTLE EMS GAVE 324 MG ASPIRIN PT IS ON BRILLINTA DENIES ANY RECENT MEDICATION CHANGES OR MISSED DOSES OF MEDICATIONS HAS NOT SEEN DINKER RECENTLY PT WITH MULTITUDE OF VISITS FOR CHEST PAIN WELL VARIOUS OTHER COMPLAINTS PT HAD NSTEMI 04/23/20 WITH OCCLUSION OF RCA AND HAD ANGIOPLASTY AND STENT AT THAT TIME HAS HAD MULTIPLE STENTS TO RCA AND A STENT TO CIRCUMFLEX IN PAST PT HAD CARDIAC CATH 05/08/20 WHICH SHOWED PATENT STENT/GRAFTS PT IS DIABETIC, BUT HAS NOT CHECKED HER BLOOD SUGAR TODAY PT STATES SHE HAS TAKEN ALL OF HER REGULAR MEDICATIONS TODAY PT CONTINUES TO SMOKE PCP: DR. LOBO DINKER: DR. ROBLES Allergies and Home Medications Allergies Coded Allergies: Penicillins (Verified Allergy, Unknown, 11/05/06) Sulfa (Sulfonamide Antibiotics) (Verified Allergy, Unknown, 11/05/06) naproxen (Verified Allergy, Unknown, HIVES, NAUSEA--can take ibuprofen, 06/01/20) Home Medications Aripiprazole 15 Mg Tablet, 7.5 MG PO DAILY, (Reported) LAST FILLED 11-15-2020 #15/30 TAKES OF A 15MG TAB Aspirin 81 Mg Tab.chew, 81 MG PO ONCE Prescribed by: DAVID ERNST on 02/04/21 1017 Atorvastatin Calcium 80 Mg Tablet, 80 MG PO DAILY, (Reported) LAST FILLED 11-15-2020 #30/30 Azithromycin 250 Mg Tablet, 250 MG PO DAILY Prescribed by: MITCHELL LEBRON on 02/04/21 1135 Cephalexin 500 Mg Tablet, 500 MG PO BID Prescribed by: MITCHELL LEBRON on 02/04/21 1135 Hydrocodone/Acetaminophen 1 Each Tablet, 1 EACH PO Q6H PRN for PAIN-BREAKTHROUGH Prescribed by: MARGARET HDEZ on 03/11/21 1037 Hydroxyzine HCl 25 Mg Tablet, 25 MG PO BID PRN for ANXIETY, (Reported) Ibuprofen 200 Mg Tablet, 400 MG PO Q8H PRN for PAIN-MILD (1-4), (Reported) Levothyroxine Sodium 100 Mcg Capsule, 100 MCG PO DAILY, (Reported) LAST FILLED 11-15-2020 #30/ Metoprolol Tartrate 25 Mg Tablet, 12.5 MG PO BID Prescribed by: DAVID ERNST on 02/04/21 1021 Pantoprazole Sodium 40 Mg Tablet.dr, 40 MG PO DAILY Prescribed by: DAVID ERNST on 02/04/21 1021 Sertraline HCl 100 Mg Tablet, 100 MG PO DAILY, (Reported) LAST FILLED 11-15-2020 #30/ Ticagrelor 90 Mg Tablet, 90 MG PO BID Prescribed by: MITCHELL LEBRON on 04/24/20 1014 Zolpidem Tartrate 5 Mg Tablet, 5 MG PO HS PRN for SLEEP, (Reported) Patient Home Medication List Home Medication List Reviewed: Yes Review of Systems Review of Systems Constitutional: see HPI, diaphoresis EENTM: No Symptoms Reported Respiratory: See HPI, Shortness of Air Cardiovascular: See HPI, Chest Pain, Edema; Denies Irregular Heart Rate, Denies Lightheadedness, Denies Palpitations, Denies Syncope Gastrointestinal: See HPI; Denies Abdominal Pain; Nausea Genitourinary: No Symptoms Reported Musculoskeletal: see HPI Skin: no symptoms reported Psychiatric/Neurological: See HPI Endocrine: No Symptoms Reported Hematologic/Lymphatic: No Symptoms Reported Past [id number] Hx Patient Social History Tobacco Use?: Yes (SMOKES 1 PPD, SINCE AGE 12) Tobacco type used: Cigarettes Smoking Status: Current Everyday Smoker Substance use?: No Alcohol Use?: No Immunizations Up To Date Tetanus Booster (TDap): More than 5yrs Seasonal Allergies Seasonal Allergies: No Past Medical History Surgery/Hospitalization HX: CABG 2009 CARDIAC CATHS--MULTIPLE STENTS TO RCA AND ANOTHER STENT TO RCA 04/23/20, STENT TO CIRCUMFLEX; LAST CARDIAC CATH 05/08/20 : ANATOMY: Left Main is free of obstructive disease Left Anterior Descending has mild to moderate disease nonobstructive disease, vein graft to diagonal artery is patent, 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 Patent stents in the right coronary artery was small vessel disease distally 2. 50 percent proximal stenosis in the vein graft to the diagonal artery, small vessel disease distally 3. Mild to moderate disease in the left coronary system, nonobstructive disease 4. Elevated left ventricular end-diastolic pressure DISCUSSION AND RECOMMENDATION: Coronary anatomy has not changed significantly compared to the study of April 24, 2020. Elevated troponin is probably due to small vessel disease, conservative management is recommended FABRICE FUNDOPLICATION CHOLECYSTECTOMY TONSILLECTOMY/ADENOIDECTOMY TRACHEOSTOMY 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) Sexually Transmitted Disease: Yes (HERPES) Genitourinary: No Gastrointestinal: Yes (S/P FABRICE FUNDOPLICATION) Gastroesophageal Reflux, Esophagitis, Hiatal Hernia, Gall Bladder Disease Musculoskeletal: Yes Arthritis Endocrine: Yes Hypothyroidsim, Diabetes, Non-Insulin dep HEENT: Yes Chronic Ear Infection Hearing Impairment: Hard of Hearing Cancer: Yes Cervical Did You Recieve Any Treatments: Yes What Type of Treatment Did You: Surgical Intervention Psychosocial: Yes Sleep Difficulties, Anxiety, Suicide Attempts, Depression Integumentary: No Blood Disorders: No Adverse Reaction/Blood Tranf: No Family Medical History ADDITIONAL PAST MEDICAL AND PROCEDURAL HISTORY: -PT HAD NSTEMI AND WAS ADMITTED 04/22/20-04/24/20, HAD CARDIAC CATH 04/23/20 AND HAD STENT X 1 TO RCA -PT HAS PREVIOUSLY HAD A CABG IN 2009, MULTIPLE STENTS TO RCA, AND STENT TO CIRCUMFLEX IN THE PAST. -CARDIAC CATH 05/08/[address] 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 Patent stents in the right coronary artery was small vessel disease distally 2. 50 percent proximal stenosis in the vein graft to the diagonal artery, small vessel disease distally 3. Mild to moderate disease in the left coronary system, nonobstructive disease 4. Elevated left ventricular end-diastolic pressure DISCUSSION AND RECOMMENDATION: Coronary anatomy has not changed significantly compared to the study of April 24, 2020. Elevated troponin is probably due to small vessel disease, conservative management is recommended Physical Exam Vital Signs Vital Signs - First Documented Capillary Refill : Height, Weight, BMI Height: 5'8.00" Weight: 189lbs. 0.0oz. 85.155241si; 33.00 BMI Method:Stated General Appearance: No Apparent Distress, WD/WN, Obese, Other (DOES NOT APPEAR TO BE IN ANY DISCOMFORT OR DISTRESS; TEXTING/PLAYING ON PHONE; VERY NON-CHALANT; COVERED IN ANIMAL HAIR; REEKS OF CIGARETTES) HEENT: Other (EXTREMELY POOR DENTITION-MOST TEETH MISSING AND FEW REMAINING TEETH WITH EXTENSIVE DECAY) Neck: Normal Inspection Respiratory: Normal Breath Sounds, No Accessory Muscle Use, No Respiratory Distress, Other (MID STERNAL TENDERNESS, PALPATION REPRODUCES PAIN ) Cardiovascular: Regular Rate, Rhythm, No Edema, No Gallop, No JVD, No Murmur, Normal Peripheral Pulses Gastrointestinal: Non Tender, Soft Extremity: Normal Capillary Refill, Normal Inspection, Normal Range of Motion, Non Tender, No Calf Tenderness, No Pedal Edema Neurologic/Psychiatric: Alert, Oriented x3, No Motor/Sensory Deficits, Normal Mood/Affect, stopper maker II-XII Norm as Tested Skin: Normal Color, Warm/Dry, Tattoos/Piercings (MULTIPLE TATTOOS) Progress/Results/Core Measures Results/Orders Lab Results Laboratory Tests Test 04/08/21 17:50 04/08/21 17:54 04/08/21 21:20 Range/Units White Blood Count 10.1 4.3-11.0 10^3/uL Red Blood Count 3.91 3.80-5.11 10^6/uL Hemoglobin 12.8 11.5-16.0 g/dL Hematocrit 37 35-52 % Mean Corpuscular Volume 95 80-99 fL Mean Corpuscular Hemoglobin 33 25-34 pg Mean Corpuscular Hemoglobin Concent 35 32-36 g/dL Red Cell Distribution Width 13.1 10.0-14.5 % Platelet Count 273 130-400 10^3/uL Mean Platelet Volume 10.2 9.0-12.2 fL Immature Granulocyte % (Auto) 0 % Neutrophils (%) (Auto) 35 L 42-75 % Lymphocytes (%) (Auto) 28 12-44 % Monocytes (%) (Auto) 5 0-12 % Eosinophils (%) (Auto) 30 H 0-10 % Basophils (%) (Auto) 1 0-10 % Neutrophils # (Auto) 3.5 1.8-7.8 10^3/uL Lymphocytes # (Auto) 2.9 1.0-4.0 10^3/uL Monocytes # (Auto) 0.5 0.0-1.0 10^3/uL Eosinophils # (Auto) 3.0 H 0.0-0.3 10^3/uL Basophils # (Auto) 0.1 0.0-0.1 10^3/uL Immature Granulocyte # (Auto) 0.0 0.0-0.1 10^3/uL Neutrophils % (Manual) 45 % Lymphocytes % (Manual) 23 % Monocytes % (Manual) 5 % Eosinophils % (Manual) 27 % Blood Morphology Comment NORMAL Erythrocyte Sedimentation Rate 16 0-20 MM/HR Prothrombin Time 13.2 12.2-14.7 SEC INR Comment 1.0 0.8-1.4 Activated Partial Thromboplast Time 31 24-35 SEC Sodium Level 138 135-145 MMOL/L Potassium Level 3.6 3.6-5.0 MMOL/L Chloride Level 112 H 98-107 MMOL/L Carbon Dioxide Level 17 L 21-32 MMOL/L Anion Gap 9 5-14 MMOL/L Blood Urea Nitrogen 15 7-18 MG/DL Creatinine 0.77 0.60-1.30 MG/DL Estimat Glomerular Filtration Rate 80 BUN/Creatinine Ratio 19 Glucose Level 155 H 70-105 MG/DL Calcium Level 8.6 8.5-10.1 MG/DL Corrected Calcium 9.2 8.5-10.1 MG/DL Magnesium Level 1.7 1.6-2.4 MG/DL Total Bilirubin 0.6 0.1-1.0 MG/DL Aspartate Amino Transf (AST/SGOT) 13 5-34 U/L Alanine Aminotransferase (ALT/SGPT) 23 0-55 U/L Alkaline Phosphatase 131 40-136 U/L Total Creatine Kinase 63 29-168 U/L Creatine Kinase MB 1.0 <6.6 NG/ML Troponin I < 0.028 < 0.028 <0.028 NG/ML C-Reactive Protein High Sensitivity 0.24 0.00-0.50 MG/DL B-Type Natriuretic Peptide 170.8 H <100.0 PG/ML Total Protein 6.0 L 6.4-8.2 GM/DL Albumin 3.3 3.2-4.5 GM/DL Amylase Level 43 25-125 U/L Lipase 29 8-78 U/L Procalcitonin 0.03 <0.10 NG/ML Serum Test, Qualitative NEGATIVE NEGATIVE SARS-CoV-2 RNA (RT-PCR) Not Detected Not Detecte My Orders Orders - HEATH CAMARILLO DO Ed Iv/Invasive Line Start (04/08/21 17:53) Ekg Tracing (04/08/21 17:53) O2 (04/08/21 17:53) Monitor-Rhythm Ecg Trace Only (04/08/21 17:53) Amylase (04/08/21 17:53) BNP (04/08/21 17:53) Cbc With Automated Diff (04/08/21 17:53) Comprehensive Metabolic Panel (04/08/21 17:53) Creatine Kinase (04/08/21 17:53) Creatine Kinase Mb (04/08/21 17:53) Lipase (04/08/21 17:53) Magnesium (04/08/21 17:53) Protime With Inr (04/08/21 17:53) Partial Thromboplastin Time (04/08/21 17:53) Troponin I (04/08/21 17:53) Chest 1 View, Ap/Pa Only (04/08/21 17:53) Ekg Tracing (04/08/21 17:53) Procalcitonin (Pct) (04/08/21 17:53) Hs C Reactive Protein (04/08/21 17:53) Erythrocyte Sedimentation Rate (04/08/21 17:53) Covid 19 Inhouse Test (04/08/21 17:53) Hcg,Qualitative Serum (04/08/21 17:53) Nitroglycerin 0.4 Mg Btl 25's (Nitrostat (04/08/21 18:09) Ondansetron Injection (Zofran Injectio (04/08/21 18:15) Manual Differential (04/08/21 17:50) Ed Iv/Invasive Line Start (04/08/21 18:33) Ns Iv 1000 Ml (Sodium Chloride 0.9%) (04/08/21 18:45) Ed Iv/Invasive Line Start (04/08/21 18:38) Ns Iv 1000 Ml (Sodium Chloride 0.9%) (04/08/21 18:45) Ketorolac Injection (Toradol Injection) (04/08/21 18:38) Acetaminophen Tablet (Tylenol Tablet) (04/08/21 20:00) Ekg Tracing (04/08/21 20:50) Troponin I (04/08/21 20:50) Medications Given in ED Current Medications Medications Dose Ordered Sig/Sara Route Start Time Stop Time Status Last Admin Dose Admin Acetaminophen 1,000 mg ONCE ONCE PO 04/08/21 20:00 04/08/21 20:01 DC 04/08/21 20:32 1,000 MG Ondansetron HCl 4 mg ONCE ONCE IVP 04/08/21 18:15 04/08/21 18:16 DC 04/08/21 18:23 4 MG Vital Signs/I&O 04/08/21 04/08/21 17:47 17:47 Temp 36.2 Pulse 78 Resp 17 B/P (MAP) 109/76 (87) Pulse Ox 95 O2 Delivery Room Air Room Air Progress Progress Note : Progress Note COVID-19 TESTING PERFORMED AND WAS NEGATIVE NTG HELD DUE TO BP IN LOW 100'S SYSTOLIC GIVEN TORADOL AND IV FLUIDS 1915--PT IS PAIN-FREE AND SYMPTOM FREE AT THIS TIME, AFTER TORADOL WILL OBSERVE IN ER AND DO 3 HOUR REPEAT EKG AND TROPONIN. REPEAT EKG AND TROPONIN ARE NEGATIVE/UNCHANGED NO COMPLAINTS FOR REMAINDER OF ER STAY PT IS SYMPTOM-FREE AT DISMISSAL, AND FEELS COMFORTABLE GOING HOME Initial ECG Impression Date: Apr 08, 2021 Initial ECG Impression Time: 17:55 Initial ECG Rate: 72 Initial ECG Rhythm: Normal Sinus Initial ECG Comparisson: Unchanged EKG : EKG Time: 21:20 Rate: 64 Rhythm: Normal Sinus ECG Comparisson: Unchanged Diagnostic Imaging Comments CXR--PER RADIOLOGIST REPORT AT 1920 FINDINGS: Lung volumes are normal. There is haziness over the lungs which is thought to be due to overlying soft tissue and poor penetration. No definite consolidation is appreciated. The cardiac silhouette is normal in size. Sternotomy wires and post-CABG changes are noted. There is no pleural effusion or pneumothorax. IMPRESSION: No acute pulmonary abnormality is seen. Reviewed: Reviewed by Me Departure Impression Primary Impression: Chest pain Additional Impressions: Chest wall pain CAD (coronary artery disease) Disposition: 01 HOME, SELF-CARE Condition: Improved Departure-Patient Inst. Decision time for Depature: 21:55 Referrals: EDWAR LOBO DO (PCP/Family) Primary Care Physician Patient Instructions: Chest Pain (DC), Costochondritis (DC) Add. Discharge Instructions: CONTINUE YOUR MEDICATIONS PRESCRIBED FOLLOW UP WITH YOUR DINKER NEXT WEEK FOR FURTHER CARE, RETURN TO ER IF SYMPTOMS RETURN HEATH CAMARILLO DO Apr 08, 2021 18:02
[2021-04-08 18:08] LABS: BASOPHILS # (AUTO) 0.1 10^3/uL (0.0-0.1); BASOPHILS % (AUTO) 1 % (0-10); EOSINOPHILS % (AUTO) 30 % (0-10); HEMATOCRIT 37 % (35-52); HEMOGLOBIN 12.8 g/dL (11.5-16.0); LYMPHOCYTES # (AUTO) 2.9 10^3/uL (1.0-4.0); LYMPHOCYTES % (AUTO) 28 % (12-44); MEAN CORPUSCULAR HEMOGLOBIN 33 pg (25-34); MEAN CORPUSCULAR HGB CONC 35 g/dL (32-36); MEAN CORPUSCULAR VOLUME 95 fL (80-99); MEAN PLATELET VOLUME 10.2 fL (9.0-12.2); MONOCYTES # (AUTO) 0.5 10^3/uL (0.0-1.0); MONOCYTES % (AUTO) 5 % (0-12); NEUTROPHILS # (AUTO) 3.5 10^3/uL (1.8-7.8); NEUTROPHILS % (AUTO) 35 % (42-75); PLATELET COUNT 273 10^3/uL (130-400); WHITE BLOOD COUNT 10.1 10^3/uL (4.3-11.0)
[2021-04-08] MEDS ORDERED: NITROGLYCERIN 0.4 MG SL TABS BTL 25'S SL ONE (18:09)
[2021-04-08] MEDS ORDERED: ONDANSETRON 4 MG/2 ML (SDV) Z0FRAN IVP ONE (18:15)
[2021-04-08 18:18] LABS: PROTHROMBIN TIME PATIENT 13.2 SEC (12.2-14.7)
[2021-04-08 18:22] LABS: ALBUMIN 3.3 GM/DL (3.2-4.5); CHLORIDE 112 MMOL/L (98-107); POTASSIUM 3.6 MMOL/L (3.6-5.0); SODIUM 138 MMOL/L (135-145)
[2021-04-08 18:23] LABS: AMYLASE 43 U/L (25-125); CALCIUM 8.6 MG/DL (8.5-10.1); ERYTHROCYTE SEDIMENTATION RATE 16 MM/HR (0-20)
[2021-04-08 18:24] LABS: GLUCOSE 155 MG/DL (70-105)
[2021-04-08 18:26] LABS: BILIRUBIN,TOTAL 0.6 MG/DL (0.1-1.0); CARBON DIOXIDE 17 MMOL/L (21-32)
[2021-04-08 18:28] LABS: ALKALINE PHOSPHATASE 131 U/L (40-136); CREATININE SERUM 0.77 MG/DL (0.60-1.30); GFR ESTIMATED 80
[2021-04-08 18:29] LABS: BUN/CREATININE RATIO 19
[2021-04-08 18:31] LABS: ALANINE AMINOTRANSFERASE 23 U/L (0-55); EOSINOPHILS % (MANUAL) 27 %; LYMPHOCYTES % (MANUAL) 23 %; MAGNESIUM 1.7 MG/DL (1.6-2.4); MONOCYTES % (MANUAL) 5 %; NEUTROPHILS % (MANUAL) 45 %; RBC MORPH NORMAL
[2021-04-08 18:32] LABS: CREATINE KINASE 63 U/L (29-168); LIPASE 29 U/L (8-78)
[2021-04-08] MEDS ORDERED: KETOROLAC 30 MG/ML VIAL IVP STA (18:38)
[2021-04-08] MEDS ORDERED: NS IV 1000 ML 1,000 ML IV SCH ×2 (18:45)
--- NOTE | 2021-04-08 19:17 | Diagnostic Imaging Report ---
HISTORY: Chest pain. COMPARISON: 03/26/2021. TECHNIQUE: Frontal view of the chest. FINDINGS: Lung volumes are normal. There is haziness over the lungs which is thought to be due to overlying soft tissue and poor penetration. No definite consolidation is appreciated. The cardiac silhouette is normal in size. Sternotomy wires and post-CABG changes are noted. There is no pleural effusion or pneumothorax. IMPRESSION: No acute pulmonary abnormality is seen. Dictated by: Dictated on workstation # [id number]
[2021-04-08] MEDS ORDERED: ACETAMINOPHEN 500 MG TAB (TYLENOL) PO ONE (20:00)
[2021-04-08 22:10] VITALS: BP 97/61
== END 2021-04-08 22:10 | disposition home or self-care (01) ==
LOC: EDUNIT# 17:47 → ER 17:48
DX: I25.10 Atherosclerotic heart disease of native coronary artery without angina pectoris (principal); I10 Essential (primary) hypertension; I25.2 Old myocardial infarction; J44.9 Chronic obstructive pulmonary disease, unspecified; E03.9 Hypothyroidism, unspecified; K21.9 Gastro-esophageal reflux disease without esophagitis; F41.9 Anxiety disorder, unspecified; F32.9 Major depressive disorder, single episode, unspecified; E78.00 Pure hypercholesterolemia, unspecified; E11.9 Type 2 diabetes mellitus without complications; F17.210 Nicotine dependence, cigarettes, uncomplicated; Z95.1 Presence of aortocoronary bypass graft; Z95.5 Presence of coronary angioplasty implant and graft; Z20.822 Contact with and (suspected) exposure to COVID-19; Z79.890 Hormone replacement therapy; Z79.82 Long term (current) use of aspirin; Z79.899 Other long term (current) drug therapy
CPT/HCPCS: 36415; 71045; 80053; 82150; 82550; 82553; 83690; 83735; 83880; 84145; 84484; 84703; 85007; 85027; 85610; 85652; 85730; 86141; 87636; 93005; 93041

== ENCOUNTER 2021-05-16 16:57 | Observation (INO) | payer MEDICARE, MEDICAID ==
[~2021-05-16] VITALS: Ht 172.7 cm; Wt 109.3 kg
[2021-05-16] MEDS ORDERED: RT-ALBUTEROL/IPRATROPIUM 3 ML (DUONEB) VIAL INH ONE (17:15)
[2021-05-16] MEDS ORDERED: NS IV 1000 ML 1,000 ML IV SCH (17:15)
[2021-05-16] MEDS: NITROGLYCERIN 0.4 MG SL TABS BTL 25'S SL PRN ×4 (17:15→21:15)
--- NOTE | 2021-05-16 17:15 | ED Chest Pain ---
General Chief Complaint: Chest Pain Stated Complaint: CHEST PAIN Nursing Triage Note: C/O CHEST PAIN RADIATING TO THE LEFT ARM, WITH SOB. ARRIVES VIA EMS TO ROOM 7. ALERT AND ORIENTED X4 Source: patient Exam Limitations: no limitations History of Present Illness Date Seen by Provider: May 16, 2021 Time Seen by Provider: 16:57 Initial Comments Patient to the ER by EMS from her home where she was sitting on the front por about 4:00 she started to experience some chest pain that was sharp in nature 7 out of 10. It has radiated to her left arm as well as made worse when directly palpating her chest, raising her left arm or taking a deep inspiration. She has a history of CABG and follows with Dr. Sheehan and Dr. Chamorro in [place]. She does not have any fevers cough or shortness of air. She does smoke about a pack of cigarettes per day. She says she quit smoking because she ran out of cigarettes at noon. She has hypertension, hyperlipidemia, noninsulin-dependent diabetes. She did take her morning aspirin and her other medications today. EMS reports they gave her 324 mg of aspirin because of a soft blood pressure they did not give any nitroglycerin. Patient states she has not had Covid vaccination. Allergies and Home Medications Allergies Coded Allergies: Penicillins (Verified Allergy, Unknown, 05/16/21) Sulfa (Sulfonamide Antibiotics) (Verified Allergy, Unknown, 05/16/21) naproxen (Verified Allergy, Unknown, HIVES, NAUSEA--can take ibuprofen, 05/16/21) Patient Home Medication List Home Medication List Reviewed: Yes Aripiprazole (Aripiprazole) 15 Mg Tablet, 7.5 MG PO DAILY, (Reported) Entered as Reported by: SONJA OH on 04/23/20 1534 Aspirin (Children's Aspirin) 81 Mg Tab.chew, 81 MG PO ONCE Prescribed by: DAVID ERNST on 02/04/21 1017 Atorvastatin Calcium (Atorvastatin Calcium) 80 Mg Tablet, 80 MG PO DAILY, (Reported) Entered as Reported by: SONJA OH on 02/04/21 1109 Azithromycin (Azithromycin) 250 Mg Tablet, 250 MG PO DAILY Prescribed by: MITCHELL LEBRON on 02/04/21 1135 Cephalexin (Cephalexin) 500 Mg Tablet, 500 MG PO BID Prescribed by: MITCHELL LEBRON on 02/04/21 1135 Hydrocodone/Acetaminophen (Hydrocodone-Acetamin 7.5-325) 1 Each Tablet, 1 EACH PO Q6H PRN for PAIN-BREAKTHROUGH Prescribed by: MARGARET HDEZ on 03/11/21 1037 Hydroxyzine HCl (Hydroxyzine HCl) 25 Mg Tablet, 25 MG PO BID PRN for ANXIETY, (Reported) Entered as Reported by: SONJA OH on 04/23/20 1534 Ibuprofen (Advil) 200 Mg Tablet, 400 MG PO Q8H PRN for PAIN-MILD (1-4), (Reported) Entered as Reported by: SONJA OH on 04/23/20 1534 Levothyroxine Sodium (Levothyroxine) 100 Mcg Capsule, 100 MCG PO DAILY, (Reported) Entered as Reported by: SONJA OH on 02/04/21 1109 Metoprolol Tartrate (Metoprolol Tartrate) 25 Mg Tablet, 12.5 MG PO BID Prescribed by: DAVID ERNST on 02/04/21 1021 Pantoprazole Sodium (Protonix) 40 Mg Tablet.dr, 40 MG PO DAILY Prescribed by: DAVID ERNST on 02/04/21 1021 Sertraline HCl (Sertraline HCl) 100 Mg Tablet, 100 MG PO DAILY, (Reported) Entered as Reported by: SONJA OH on 04/23/20 1534 Ticagrelor (Brilinta) 90 Mg Tablet, 90 MG PO BID Prescribed by: MITCHELL LEBRON on 04/24/20 1014 Zolpidem Tartrate (Zolpidem Tartrate) 5 Mg Tablet, 5 MG PO HS PRN for SLEEP, (Reported) Entered as Reported by: SONJA OH on 04/23/20 1534 Review of Systems Review of Systems Constitutional: No chills, No diaphoresis EENTM: No Blurred Vision, No Double Vision Respiratory: Denies Cough, Denies Shortness of Air Cardiovascular: Chest Pain; Denies Irregular Heart Rate, Denies Lightheadedness Gastrointestinal: Denies Abdomen Distended, Denies Abdominal Pain, Denies Constipated, Denies Diarrhea, Denies Nausea Genitourinary: Denies Burning, Denies Discharge Musculoskeletal: No back pain, No joint pain Skin: No pruritus, No rash Psychiatric/Neurological: Denies Headache, Denies Numbness All Other Systems Reviewed Negative Unless Noted: Yes Past Yqvnbna-Ruynku-Skohqo Hx Patient Social History Tobacco Use?: Yes Tobacco type used: Cigarettes Smoking Status: Current Everyday Smoker Use of E-Cig and/or Vaping dev: No Substance use?: No Immunizations Up To Date Tetanus Booster (TDap): More than 5yrs Seasonal Allergies Seasonal Allergies: No Past Medical History Surgery/Hospitalization HX: CABG 2009 CARDIAC CATHS--MULTIPLE STENTS TO RCA AND ANOTHER STENT TO RCA 04/23/20, STENT TO CIRCUMFLEX; LAST CARDIAC CATH 05/08/20 : ANATOMY: Left Main is free of obstructive disease Left Anterior Descending has mild to moderate disease nonobstructive disease, vein graft to diagonal artery is patent, 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 Patent stents in the right coronary artery was small vessel disease distally 2. 50 percent proximal stenosis in the vein graft to the diagonal artery, small vessel disease distally 3. Mild to moderate disease in the left coronary system, nonobstructive disease 4. Elevated left ventricular end-diastolic pressure DISCUSSION AND RECOMMENDATION: Coronary anatomy has not changed significantly compared to the study of April 24, 2020. Elevated troponin is probably due to small vessel disease, conservative management is recommended FABRICE FUNDOPLICATION CHOLECYSTECTOMY TONSILLECTOMY/ADENOIDECTOMY TRACHEOSTOMY 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) Sexually Transmitted Disease: Yes (HERPES) Genitourinary: No Gastrointestinal: Yes (S/P FABRICE FUNDOPLICATION) Gastroesophageal Reflux, Esophagitis, Hiatal Hernia, Gall Bladder Disease Musculoskeletal: Yes Arthritis Endocrine: Yes Hypothyroidsim, Diabetes, Non-Insulin dep HEENT: Yes Chronic Ear Infection Hearing Impairment: Hard of Hearing Cancer: Yes Cervical Did You Recieve Any Treatments: Yes What Type of Treatment Did You: Surgical Intervention Psychosocial: Yes Sleep Difficulties, Anxiety, Suicide Attempts, Depression Integumentary: No Blood Disorders: No Adverse Reaction/Blood Tranf: No Family Medical History ADDITIONAL PAST MEDICAL AND PROCEDURAL HISTORY: -PT HAD NSTEMI AND WAS ADMITTED 04/22/20-04/24/20, HAD CARDIAC CATH 04/23/20 AND HAD STENT X 1 TO RCA -PT HAS PREVIOUSLY HAD A CABG IN 2009, MULTIPLE STENTS TO RCA, AND STENT TO CIRCUMFLEX IN THE PAST. -CARDIAC CATH 05/08/[address] 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 Patent stents in the right coronary artery was small vessel disease distally 2. 50 percent proximal stenosis in the vein graft to the diagonal artery, small vessel disease distally 3. Mild to moderate disease in the left coronary system, nonobstructive disease 4. Elevated left ventricular end-diastolic pressure DISCUSSION AND RECOMMENDATION: Coronary anatomy has not changed significantly compared to the study of April 24, 2020. Elevated troponin is probably due to small vessel disease, conservative management is recommended Physical Exam Vital Signs Vital Signs - First Documented 05/16/21 17:00 Temp 35.8 Pulse 87 Resp 24 B/P (MAP) 125/94 (104) Pulse Ox 96 Capillary Refill : Less Than 3 Seconds Height, Weight, BMI Height: 5'8.00" Weight: 189lbs. 0.0oz. 85.430433ng; 30.00 BMI Method:Stated General Appearance: No Apparent Distress, WD/WN HEENT: PERRL/EOMI, Pharynx Normal, Moist Mucous Membranes Neck: Full Range of Motion, Normal Inspection Respiratory: No Accessory Muscle Use, No Respiratory Distress (97% on room air nonlabored breathing.), Rhonci (Bilateral), Other (Chest pain reproducible with direct palpation) Cardiovascular: Regular Rate, Rhythm, Normal Peripheral Pulses Gastrointestinal: Normal Bowel Sounds, Non Tender, Soft Extremity: Normal Capillary Refill, Normal Inspection, No Pedal Edema Neurologic/Psychiatric: Alert, Oriented x3 Skin: Normal Color, Warm/Dry Progress/Results/Core Measures Results/Orders Lab Results Laboratory Tests Test 05/16/21 17:07 05/16/21 17:15 05/16/21 17:40 Range/Units White Blood Count 7.6 4.3-11.0 10^3/uL Red Blood Count 4.56 3.80-5.11 10^6/uL Hemoglobin 15.0 11.5-16.0 g/dL Hematocrit 43 35-52 % Mean Corpuscular Volume 95 80-99 fL Mean Corpuscular Hemoglobin 33 25-34 pg Mean Corpuscular Hemoglobin Concent 35 32-36 g/dL Red Cell Distribution Width 12.6 10.0-14.5 % Platelet Count 294 130-400 10^3/uL Mean Platelet Volume 10.6 9.0-12.2 fL Immature Granulocyte % (Auto) 0 % Neutrophils (%) (Auto) 37 L 42-75 % Lymphocytes (%) (Auto) 41 12-44 % Monocytes (%) (Auto) 7 0-12 % Eosinophils (%) (Auto) 15 H 0-10 % Basophils (%) (Auto) 1 0-10 % Neutrophils # (Auto) 2.8 1.8-7.8 10^3/uL Lymphocytes # (Auto) 3.1 1.0-4.0 10^3/uL Monocytes # (Auto) 0.5 0.0-1.0 10^3/uL Eosinophils # (Auto) 1.1 H 0.0-0.3 10^3/uL Basophils # (Auto) 0.1 0.0-0.1 10^3/uL Immature Granulocyte # (Auto) 0.0 0.0-0.1 10^3/uL Neutrophils % (Manual) 37 % Lymphocytes % (Manual) 32 % Monocytes % (Manual) 15 % Eosinophils % (Manual) 16 % Blood Morphology Comment NORMAL Prothrombin Time 12.8 12.2-14.7 SEC INR Comment 0.9 0.8-1.4 Activated Partial Thromboplast Time 31 24-35 SEC Sodium Level 136 135-145 MMOL/L Potassium Level 3.8 3.6-5.0 MMOL/L Chloride Level 106 98-107 MMOL/L Carbon Dioxide Level 20 L 21-32 MMOL/L Anion Gap 10 5-14 MMOL/L Blood Urea Nitrogen 15 7-18 MG/DL Creatinine 0.88 0.60-1.30 MG/DL Estimat Glomerular Filtration Rate 69 BUN/Creatinine Ratio 17 Glucose Level 228 H 70-105 MG/DL Calcium Level 9.2 8.5-10.1 MG/DL Corrected Calcium 9.3 8.5-10.1 MG/DL Magnesium Level 2.0 1.6-2.4 MG/DL Total Bilirubin 1.2 H 0.1-1.0 MG/DL Aspartate Amino Transf (AST/SGOT) 16 5-34 U/L Alanine Aminotransferase (ALT/SGPT) 18 0-55 U/L Alkaline Phosphatase 127 40-136 U/L Myoglobin 28.0 10.0-92.0 NG/ML Troponin I < 0.028 <0.028 NG/ML B-Type Natriuretic Peptide 47.7 <100.0 PG/ML Total Protein 7.0 6.4-8.2 GM/DL Albumin 3.9 3.2-4.5 GM/DL SARS-CoV-2 RNA (RT-PCR) Not Detected Not Detecte Urine Color YELLOW Urine Clarity CLEAR Urine pH 6.0 5-9 Urine Specific Lee >=1.030 1.016-1.022 Urine Protein NEGATIVE NEGATIVE Urine Glucose (UA) NEGATIVE NEGATIVE Urine Ketones NEGATIVE NEGATIVE Urine Nitrite NEGATIVE NEGATIVE Urine Bilirubin NEGATIVE NEGATIVE Urine Urobilinogen 1.0 < = 1.0 MG/DL Urine Leukocyte Esterase NEGATIVE NEGATIVE Urine RBC (Auto) TRACE-I NEGATIVE Urine RBC 2-5 H /HPF Urine WBC 5-10 H /HPF Urine Squamous Epithelial Cells 0-2 /HPF Urine Renal Epithelial Cells NONE /HPF Urine Crystals NONE /LPF Urine Bacteria LARGE H /HPF Urine Casts NONE /LPF Urine Mucus NEGATIVE /LPF Urine Culture Indicated YES Urine Opiates Screen NEGATIVE NEGATIVE Urine Oxycodone Screen NEGATIVE NEGATIVE Urine Methadone Screen NEGATIVE NEGATIVE Urine Propoxyphene Screen NEGATIVE NEGATIVE Urine Barbiturates Screen NEGATIVE NEGATIVE Ur Tricyclic Antidepressants Screen NEGATIVE NEGATIVE Urine Phencyclidine Screen NEGATIVE NEGATIVE Urine Amphetamines Screen NEGATIVE NEGATIVE Urine Methamphetamines Screen NEGATIVE NEGATIVE Urine Benzodiazepines Screen NEGATIVE NEGATIVE Urine Cocaine Screen NEGATIVE NEGATIVE Urine Cannabinoids Screen NEGATIVE NEGATIVE My Orders Orders - MARGARET HDEZ Cbc With Automated Diff (05/16/21 17:06) Magnesium (05/16/21 17:06) Chest 1 View, Ap/Pa Only (05/16/21 17:06) Ekg Tracing (05/16/21 17:06) Comprehensive Metabolic Panel (05/16/21 17:06) Myoglobin Serum (05/16/21 17:06) Protime With Inr (05/16/21 17:06) Partial Thromboplastin Time (05/16/21 17:06) O2 (05/16/21 17:06) Monitor-Rhythm Ecg Trace Only (05/16/21 17:06) Lipid Panel (05/17/21 06:00) Ed Iv/Invasive Line Start (05/16/21 17:06) BNP (05/16/21 17:06) Troponin I (05/16/21 17:06) Nitroglycerin 0.4 Mg Btl 25's (Nitrostat (05/16/21 17:15) Albuterol/Ipra Inhalation Soln (Duoneb I (05/16/21 17:15) Ed Iv/Invasive Line Start (05/16/21 17:06) Ns Iv 1000 Ml (Sodium Chloride 0.9%) (05/16/21 17:15) Svn Small Volume Nebulizer (05/16/21 17:06) Covid 19 Inhouse Test (05/16/21 17:16) Ua Culture If Indicated (05/16/21 17:16) Urine Bedside (05/16/21 17:16) Drug Screen Stat (Urine) (05/16/21 17:16) Manual Differential (05/16/21 17:07) Ondansetron Injection (Zofran Injectio (05/16/21 18:00) Morphine Injection (Morphine Injection (05/16/21 17:47) Urine Culture (05/16/21 17:40) Medications Given in ED Current Medications Medications Dose Ordered Sig/Sara Route Start Time Stop Time Status Last Admin Dose Admin Albuterol/ Ipratropium 3 ml ONCE ONCE INH 05/16/21 17:15 05/16/21 17:16 DC 05/16/21 17:58 3 ML Nitroglycerin 0.4 mg UD PRN SL 05/16/21 17:15 05/16/21 17:26 0.4 MG Ondansetron HCl 4 mg ONCE ONCE IVP 05/16/21 18:00 05/16/21 18:01 DC 05/16/21 17:56 4 MG Vital Signs/I&O 05/16/21 05/16/21 17:00 18:13 Temp 35.8 Pulse 87 Resp 24 B/P (MAP) 125/94 (104) Pulse Ox 96 96 Blood Pressure Mean: 104 Progress Progress Note #1: Time: 17:14 Progress Note Covid swab, DuoNeb, nitroglycerin if her blood pressure holds out. Liter of fluids as she appears to be a little dry. Her borderline elevated temperature could be because she was sitting on her porch in 90 degree weather and exposure versus will much less likely infectious. Chest pain work-up to include chest x- ray and labs. Progress Note #2: Time: 18:18 Progress Note Patient still having 7 out of 10 pain on marginal improvement after 2 mg of morphine. 2 doses of nitroglycerin did nothing for her pain. DuoNeb did nothing for her chest pain. Chest x-ray is unrevealing. 4 points HEART Pathway Score. High risk; 12-65% 30-day MACE. Admit to hospital or observation. Further testing indicated. Initial ECG Impression Date: May 16, 2021 Initial ECG Impression Time: 17:00 Initial ECG Rate: 90 Initial ECG Intervals: QT Initial ECG Impression: Normal, Nonspecific Changes Initial ECG Comparisson: No Previous ECG Available Comment Sinus rhythm without ST elevation or depression. Borderline QTC prolongation. Diagnostic Imaging Diagonstic Imaging: Xray Plain Films/CT/US/NM/MRI: chest Comments [facility]. [place], [place] NAME: WAN DA SILVA [facility] REC#: [id number] PT STATUS: REG ER : 1975 PHYSICIAN: MARGARET HDEZ MD ADMIT DATE: 05/16/21/ER Signed Date of Exam:05/16/21 CHEST 1 VIEW, AP/PA ONLY INDICATION: Chest pain. COMPARISON: 04/08/2021. FINDINGS: Single view of the chest demonstrates stable cardiac enlargement. The lungs remain clear. There is no pneumothorax or effusion. Sternal wires are midline. Osseous structures are normal. IMPRESSION: No acute cardiopulmonary findings. Dictated by: Dictated on workstation # [id number] Dict: 05/16/[id number] Trans: 05/16/211811 [id number] Interpreted by: RUPERT WHALEY Electronically signed by: RUPERT WHALEY 05/16/211811 Reviewed: Reviewed by Me Departure Communication (Admissions) Time/Spoke to Admitting Phy: 18:23 Discussed the case with Dr. Davies and he agrees to observe the patient on the cardiac stepdown unit for delta troponins with consultation to cardiology Time/Spoke to Consulting Phy: 18:20 Discussed the case with Dr. Jay, cardiology and he agrees to consult on the case. Impression Primary Impression: Chest wall pain Additional Impressions: Acute coronary syndrome without high troponin UTI (urinary tract infection) Qualified Codes: N30.00 - Acute cystitis without hematuria Disposition: ADMITTED INPATIENT Condition: Stable Admissions Decision to Admit Reason: Admit from ER (General) Decision to Admit/Date: May 16, 2021 Time/Decision to Admit Time: 18:10 Departure-Patient Inst. Referrals: EDWAR CHAMORRO DO (PCP/Family) Primary Care Physician MARGARET HDEZ May 16, 2021 17:15
[2021-05-16 17:18] LABS: BASOPHILS # (AUTO) 0.1 10^3/uL (0.0-0.1); BASOPHILS % (AUTO) 1 % (0-10); EOSINOPHILS # (AUTO) 1.1 10^3/uL (0.0-0.3); EOSINOPHILS % (AUTO) 15 % (0-10); HEMATOCRIT 43 % (35-52); LYMPHOCYTES # (AUTO) 3.1 10^3/uL (1.0-4.0); LYMPHOCYTES % (AUTO) 41 % (12-44); MEAN CORPUSCULAR HEMOGLOBIN 33 pg (25-34); MEAN CORPUSCULAR HGB CONC 35 g/dL (32-36); MEAN CORPUSCULAR VOLUME 95 fL (80-99); MEAN PLATELET VOLUME 10.6 fL (9.0-12.2); MONOCYTES # (AUTO) 0.5 10^3/uL (0.0-1.0); MONOCYTES % (AUTO) 7 % (0-12); NEUTROPHILS # (AUTO) 2.8 10^3/uL (1.8-7.8); NEUTROPHILS % (AUTO) 37 % (42-75); PLATELET COUNT 294 10^3/uL (130-400); WHITE BLOOD COUNT 7.6 10^3/uL (4.3-11.0)
[2021-05-16 17:28] LABS: INR 0.9 (0.8-1.4); PROTHROMBIN TIME PATIENT 12.8 SEC (12.2-14.7)
[2021-05-16 17:30] LABS: ALBUMIN 3.9 GM/DL (3.2-4.5)
[2021-05-16 17:31] LABS: POTASSIUM 3.8 MMOL/L (3.6-5.0)
[2021-05-16 17:32] LABS: CALCIUM 9.2 MG/DL (8.5-10.1)
[2021-05-16 17:34] LABS: EOSINOPHILS % (MANUAL) 16 %; LYMPHOCYTES % (MANUAL) 32 %; MONOCYTES % (MANUAL) 15 %; NEUTROPHILS % (MANUAL) 37 %; RBC MORPH NORMAL
[2021-05-16 17:35] LABS: BILIRUBIN,TOTAL 1.2 MG/DL (0.1-1.0)
[2021-05-16 17:37] LABS: CREATININE SERUM 0.88 MG/DL (0.60-1.30)
[2021-05-16] MEDS ORDERED: morphine INJ 10 MG/ML 1ML (SYR OR VIAL) IVP STA ×2 (17:47→18:27)
[2021-05-16 17:50] LABS: BILIRUBIN,URINE NEGATIVE (NEGATIVE); CLARITY,URINE CLEAR; COLOR,URINE YELLOW; GLUCOSE, URINE (UA) NEGATIVE (NEGATIVE); KETONES,URINE NEGATIVE (NEGATIVE); LEUKOCYTE ESTERASE ,URINE NEGATIVE (NEGATIVE); NITRITE,URINE NEGATIVE (NEGATIVE); PROTEIN,URINE NEGATIVE (NEGATIVE)
[2021-05-16 17:56] LABS: BACTERIA,URINE LARGE /HPF
[2021-05-16 17:57] LABS: SQUAMOUS EPITHELIAL CELL,UR 0-2 /HPF
[2021-05-16] MEDS ORDERED: ONDANSETRON 4 MG/2 ML (SDV) Z0FRAN IVP ONE (18:00)
[2021-05-16 18:01] LABS: AMPHETAMINE SCREEN, URINE NEGATIVE (NEGATIVE); BARBITURATE SCREEN URINE NEGATIVE (NEGATIVE); BENZODIAZEPINES SCREEN URINE NEGATIVE (NEGATIVE); CANNABINOID SCREEN, URINE NEGATIVE (NEGATIVE); COCAINE SCREEN URINE NEGATIVE (NEGATIVE); METHADONE STAT NEGATIVE (NEGATIVE); METHAMPHETAMINE SCREEN URINE S NEGATIVE (NEGATIVE); OPIATE SCREEN URINE NEGATIVE (NEGATIVE); OXYCODONE STAT NEGATIVE (NEGATIVE); PROPOXYPHENE STAT NEGATIVE (NEGATIVE); TRICYCLIC ANTIDEPRESSANTS SCRE NEGATIVE (NEGATIVE)
--- NOTE | 2021-05-16 18:12 | Diagnostic Imaging Report ---
INDICATION: Chest pain. COMPARISON: 04/08/2021. FINDINGS: Single view of the chest demonstrates stable cardiac enlargement. The lungs remain clear. There is no pneumothorax or effusion. Sternal wires are midline. Osseous structures are normal. IMPRESSION: No acute cardiopulmonary findings. Dictated by: Dictated on workstation # [id number]
[2021-05-16] MEDS ORDERED: NITROFURANTOIN 100 MG (MACROBID) CAPSULE PO ONE (18:30)
[2021-05-16 20:04] VITALS: BP 102/70
[2021-05-16] MEDS ORDERED: ENOXAPARIN 40 MG/0.4 ML (LOVENOX) SYR SC SCH (20:30)
[2021-05-16] MEDS ORDERED: NITROFURANTOIN 100 MG (MACROBID) CAPSULE PO SCH (20:30)
[2021-05-16] MEDS ORDERED: morphine INJ 4 MG/ML 1 ML (VIAL/SYRINGE) IV PRN (20:30)
[2021-05-16] MEDS ORDERED: ONDANSETRON 4 MG/2 ML (SDV) Z0FRAN IV PRN (20:30)
[2021-05-16] MEDS ORDERED: ONDANSETRON 4 MG/2 ML (SDV) Z0FRAN IVP PRN (20:30)
[2021-05-16] MEDS: TICAGRELOR 90 MG TABLET (BRILINTA) PO SCH (20:57)
[2021-05-16] MEDS: inSUlin ASPART (NovoLOG) 1 UNIT/0.01 ML (CHARGE PER UNIT) SC SCH (20:58)
[2021-05-16 22:00] VITALS: BP 102/71
[2021-05-16 23:42] VITALS: BP 98/64
[2021-05-16 23:45] VITALS: BP 98/64
[2021-05-17] VITALS (7 sets, daily range): BP systolic 92–121; BP diastolic 50–81
[2021-05-17] MEDS: ACETAMINOPHEN 325 MG TABLET PO PRN ×2 (03:52→09:08)
[2021-05-17] MEDS: inSUlin ASPART (NovoLOG) 1 UNIT/0.01 ML (CHARGE PER UNIT) SC SCH ×3 (05:15→16:00)
[2021-05-17 05:43] LABS: BASOPHILS # (AUTO) 0.1 10^3/uL (0.0-0.1); BASOPHILS % (AUTO) 1 % (0-10); EOSINOPHILS # (AUTO) 1.1 10^3/uL (0.0-0.3); EOSINOPHILS % (AUTO) 16 % (0-10); HEMATOCRIT 38 % (35-52); HEMOGLOBIN 12.7 g/dL (11.5-16.0); LYMPHOCYTES # (AUTO) 2.7 10^3/uL (1.0-4.0); LYMPHOCYTES % (AUTO) 41 % (12-44); MEAN CORPUSCULAR HEMOGLOBIN 33 pg (25-34); MEAN CORPUSCULAR HGB CONC 34 g/dL (32-36); MEAN CORPUSCULAR VOLUME 97 fL (80-99); MEAN PLATELET VOLUME 10.8 fL (9.0-12.2); MONOCYTES # (AUTO) 0.5 10^3/uL (0.0-1.0); MONOCYTES % (AUTO) 8 % (0-12); NEUTROPHILS # (AUTO) 2.3 10^3/uL (1.8-7.8); NEUTROPHILS % (AUTO) 35 % (42-75); PLATELET COUNT 240 10^3/uL (130-400); WHITE BLOOD COUNT 6.7 10^3/uL (4.3-11.0)
[2021-05-17 06:25] LABS: BUN/CREATININE RATIO 17; CALCIUM 8.9 MG/DL (8.5-10.1); CARBON DIOXIDE 19 MMOL/L (21-32); CHLORIDE 110 MMOL/L (98-107); CHOLESTEROL 174 MG/DL (< 200); CREATININE SERUM 0.81 MG/DL (0.60-1.30); GFR ESTIMATED 75; GLUCOSE 182 MG/DL (70-105); HDL CHOLESTEROL 33 MG/DL (40-60); SODIUM 138 MMOL/L (135-145); TRIGLYCERIDES 214 MG/DL (<150); VLDL CHOLESTEROL 43 MG/DL (5-40)
[2021-05-17] MEDS ORDERED: NITROFURANTOIN 100 MG (MACROBID) CAPSULE PO SCH (08:00)
[2021-05-17] MEDS ORDERED: ASPIRIN E.C. 81 MG (ECOTRIN) TAB PO SCH (09:00)
[2021-05-17] MEDS ORDERED: REGADENOSON 0.4 MG/5 ML SYR (LEXISCAN) IV ONE ×2 (09:00→12:20)
[2021-05-17] MEDS: TICAGRELOR 90 MG TABLET (BRILINTA) PO SCH (09:07)
--- NOTE | 2021-05-17 10:06 | Consultation-Cardiology ---
HPI-Cardiology Cardiology Consultation: Date of Consultation 05/17/21 Time Seen by a Provider: 08:45 Date of Admission 05-16-21 Attending Physician Shonda Davies MD Admitting Physician Willem Chamorro DO Consulting Physician DAVID SALDIVAR HPI: Chief Complaint: Chest pain Ms. Da Silva is a 46 yr old female admitted to 508 from the ED with increasing SOB over the last few days. She reports she has had constant chest pain across her chest for several days. Nothing makes it better, but nothing makes it worse. She reports she has chronic chest pain and this does not feel any different than what she has had before. She reports she has had nausea and diarrhea. No c/o palpitations. She feels her chest pain is unchanged from her baseline. No c/o SOB. No c/o LE swelling. She continues to smoke cigs. She states she has been compliant with her medications. Review of Systems-Cardiology Review of Systems Constitutional: No chills, No fever; malaise Eyes: No vision change Ears/Nose/Throat: No epistaxis, No recent hearing loss Respiratory: As described under HPI Cardiovascular: As described under HPI Gastrointestinal: As described under HPI Genitourinary: No hematuria Musculoskeletal: no symptoms reported Skin: No rash on exposed areas, No ulcerations on exposed areas Psychiatric/Neurological: No anxiety, No depression, No seizure, No focal w eakness, No syncope Hematologic: No bleeding abnormalities All Other Systems Reviewed Negative Unless Noted: Yes [id number]-Gsxeik Hx Patient Social History Smoking Status: Current Everyday Smoker 2nd Hand Smoke Exposure: No Have you traveled recently?: No Alcohol Use?: No Pt feels they are or have been: No Tobacco type used: Cigarettes Immunizations Up To Date Tetanus Booster (TDap): More than 5yrs Date of Pneumonia Vaccine: Jun 20, 2013 Date of Influenza Vaccine: May 24, 2020 Past Medical History PMH As described under Assessment. Family Medical History Family Medical History: Has family h/o of early CAD Allergies and Home Medications Allergies Coded Allergies: Penicillins (Verified Allergy, Unknown, 05/16/21) Sulfa (Sulfonamide Antibiotics) (Verified Allergy, Unknown, 05/16/21) naproxen (Verified Allergy, Unknown, HIVES, NAUSEA--can take ibuprofen, 05/16/21) Patient Home Medication List Aripiprazole (Aripiprazole) 15 Mg Tablet, 7.5 MG PO DAILY, (Reported) Entered as Reported by: SONJA OH on 04/23/20 1534 Aspirin (Children's Aspirin) 81 Mg Tab.chew, 81 MG PO ONCE Prescribed by: DAVID ERNST on 02/04/21 1017 Atorvastatin Calcium (Atorvastatin Calcium) 80 Mg Tablet, 80 MG PO DAILY, (Reported) Entered as Reported by: SONJA OH on 02/04/21 1109 Azithromycin (Azithromycin) 250 Mg Tablet, 250 MG PO DAILY Prescribed by: MITCHELL LEBRON on 02/04/21 1135 Cephalexin (Cephalexin) 500 Mg Tablet, 500 MG PO BID Prescribed by: MITCHELL LEBRON on 02/04/21 1135 Hydrocodone/Acetaminophen (Hydrocodone-Acetamin 7.5-325) 1 Each Tablet, 1 EACH PO Q6H PRN for PAIN-BREAKTHROUGH Prescribed by: MARGARET HDEZ on 03/11/21 1037 Hydroxyzine HCl (Hydroxyzine HCl) 25 Mg Tablet, 25 MG PO BID PRN for ANXIETY, (Reported) Entered as Reported by: SONJA OH on 04/23/20 1534 Ibuprofen (Advil) 200 Mg Tablet, 400 MG PO Q8H PRN for PAIN-MILD (1-4), (Reporte d) Entered as Reported by: SONJA OH on 04/23/20 1534 Levothyroxine Sodium (Levothyroxine) 100 Mcg Capsule, 100 MCG PO DAILY, (Reported) Entered as Reported by: SONJA OH on 02/04/21 1109 Metoprolol Tartrate (Metoprolol Tartrate) 25 Mg Tablet, 12.5 MG PO BID Prescribed by: DAVID ERNST on 02/04/21 1021 Pantoprazole Sodium (Protonix) 40 Mg Tablet.dr, 40 MG PO DAILY Prescribed by: DAVID ERNST on 02/04/21 1021 Sertraline HCl (Sertraline HCl) 100 Mg Tablet, 100 MG PO DAILY, (Reported) Entered as Reported by: SONJA OH on 04/23/20 1534 Ticagrelor (Brilinta) 90 Mg Tablet, 90 MG PO BID Prescribed by: MITCHELL LEBRON on 04/24/20 1014 Zolpidem Tartrate (Zolpidem Tartrate) 5 Mg Tablet, 5 MG PO HS PRN for SLEEP, (Reported) Entered as Reported by: SONJABernardo OH on 04/23/20 4333 Physical Exam-Cardiology Physical Exam Vital Signs/I&O 05/17/21 05/17/21 05/17/21 05/17/21 01:40 02:00 03:03 03:52 Pulse 81 73 72 Resp 19 14 12 B/P (MAP) 97/70 (79) 102/62 (75) 98/50 (66) Pulse Ox 96 95 96 97 O2 Delivery Room Air Room Air Room Air Room Air 05/17/21 05/17/21 05/17/21 05/17/21 04:00 06:49 07:58 08:00 Temp 36.1 Pulse 68 82 76 Resp 11 14 B/P (MAP) 92/55 (67) 102/64 (77) Pulse Ox 97 98 97 O2 Delivery Room Air Room Air Room Air 05/17/21 05/17/21 09:00 12:23 Pulse 71 Resp 14 B/P (MAP) 121/81 (94) Pulse Ox 98 96 O2 Delivery Room Air Room Air 05/17/21 00:00 Intake Total 1550 ml Output Total 0 ml Balance 1550 ml Capillary Refill : Less Than 3 Seconds Constitutional: AAO x 3, well-developed, well-nourished HEENT: PERRL, hearing is well preserved, oral hygience is good Neck: carotid pulses are 2 + bilaterally Respiratory: No accessory muscle use, No respiratory distress; chest expansion is symmetric, chest is bilaterally symmetric, rhonchi (scattered; prolonged exp phase) Cardiovascular: regular rate-rhythm; No JVD; S1 and S2 Gastrointestinal: No tender; soft, round Extremities: no lower extremity edema bilateral Neurologic/Psychiatric: grossly intact (moves all extremities) Skin: No rash on exposed areas, No ulcerations on exposed areas Data Review Labs Laboratory Tests 05/16/21 17:07: White Blood Count 7.6, Red Blood Count 4.56, Hemoglobin 15.0, Hematocrit 43, Mean Corpuscular Volume 95, Mean Corpuscular Hemoglobin 33, Mean Corpuscular Hemoglobin Concent 35, Red Cell Distribution Width 12.6, Platelet Count 294, Mean Platelet Volume 10.6, Immature Granulocyte % (Auto) 0, Neutrophils (%) (Auto) 37L, Lymphocytes (%) (Auto) 41, Monocytes (%) (Auto) 7, Eosinophils (%) (Auto) 15H, Basophils (%) (Auto) 1, Neutrophils # (Auto) 2.8, Lymphocytes # (Aut o) 3.1, Monocytes # (Auto) 0.5, Eosinophils # (Auto) 1.1H, Basophils # (Auto) 0.1, Immature Granulocyte # (Auto) 0.0, Neutrophils % (Manual) 37, Lymphocytes % (Manual) 32, Monocytes % (Manual) 15, Eosinophils % (Manual) 16, Blood Morph ology Comment NORMAL, Prothrombin Time 12.8, INR Comment 0.9, Activated Partial Thromboplast Time 31, Sodium Level 136, Potassium Level 3.8, Chloride Level 106, Carbon Dioxide Level 20L, Anion Gap 10, Blood Urea Nitrogen 15, Creatinine 0.88, Estimat Glomerular Filtration Rate 69, BUN/Creatinine Ratio 17, Glucose Level 228H, Calcium Level 9.2, Corrected Calcium 9.3, Magnesium Level 2.0, Total Bilirubin 1.2H, Aspartate Amino Transf (AST/SGOT) 16, Alanine Aminotransferase (ALT/SGPT) 18, Alkaline Phosphatase 127, Myoglobin 28.0, Troponin I < 0.028, B- Type Natriuretic Peptide 47.7, Total Protein 7.0, Albumin 3.9 05/16/21 17:15: SARS-CoV-2 RNA (RT-PCR) Not Detected 05/16/21 17:40: Urine Color YELLOW, Urine Clarity CLEAR, Urine pH 6.0, Urine Specific [place] >=1.030, Urine Protein NEGATIVE, Urine Glucose (UA) NEGATIVE, Urine Ketones NEGATIVE, Urine Nitrite NEGATIVE, Urine Bilirubin NEGATIVE, Urine Urobilinogen 1.0, Urine Leukocyte Esterase NEGATIVE, Urine RBC (Auto) TRACE-I, Urine RBC 2-5H , Urine WBC 5-10H, Urine Squamous Epithelial Cells 0-2, Urine Renal Epithelial Cells NONE, Urine Crystals NONE, Urine Bacteria LARGEH, Urine Casts NONE, Urine Mucus NEGATIVE, Urine Culture Indicated YES, Urine Opiates Screen NEGATIVE, Urine Oxycodone Screen NEGATIVE, Urine Methadone Screen NEGATIVE, Urine Propoxyphene Screen NEGATIVE, Urine Barbiturates Screen NEGATIVE, Ur Tricyclic Antidepressants Screen NEGATIVE, Urine Phencyclidine Screen NEGATIVE, Urine Amphetamines Screen NEGATIVE, Urine Methamphetamines Screen NEGATIVE, Urine Benzodiazepines Screen NEGATIVE, Urine Cocaine Screen NEGATIVE, Urine Cannabinoids Screen NEGATIVE 05/16/21 20:22: Glucometer 216H 05/16/21 22:52: Troponin I < 0.028 05/17/21 05:14: Glucometer 196H 05/17/21 05:15: Troponin I < 0.028, White Blood Count 6.7, Red Blood Count 3.85, Hemoglobin 12.7, Hematocrit 38, Mean Corpuscular Volume 97, Mean Corpuscular Hemoglobin 33, Mean Corpuscular Hemoglobin Concent 34, Red Cell Distribution Width 13.1, Platelet Count 240, Mean Platelet Volume 10.8, Immature Granulocyte % (Auto) 0, Neutrophils (%) (Auto) 35L, Lymphocytes (%) (Auto) 41, Monocytes (%) (Auto) 8, Eosinophils (%) (Auto) 16H, Basophils (%) (Auto) 1, Neutrophils # (Auto) 2.3, Lymphocytes # (Auto) 2.7, Monocytes # (Auto) 0.5, Eosinophils # (Auto) 1.1H, Basophils # (Auto) 0.1, Immature Granulocyte # (Auto) 0.0, Sodium Level 138, Potassium Level 4.0, Chloride Level 110H, Carbon Dioxide Level 19L, Anion Gap 9, Blood Urea Nitrogen 14, Creatinine 0.81, Estimat Glomerular Filtration Rate 75, BUN/Creatinine Ratio 17, Glucose Level 182H, Calcium Level 8.9, Triglycerides Level 214H, Cholesterol Level 174, LDL Cholesterol Direct 130H, VLDL Cholesterol 43H, HDL Cholesterol 33L 05/17/21 10:52: Glucometer 131H Microbiology 05/16/21 Urine Culture - Preliminary, Resulted Escherichia coli Radiology NAME: WAN DA SILVA [facility] REC#: [id number] PT STATUS: REG ER : 1975 PHYSICIAN: MARGARET HDEZ MD ADMIT DATE: 05/16/21/ER Signed Date of Exam:05/16/21 CHEST 1 VIEW, AP/PA ONLY INDICATION: Chest pain. COMPARISON: 04/08/2021. FINDINGS: Single view of the chest demonstrates stable cardiac enlargement. The lungs remain clear. There is no pneumothorax or effusion. Sternal wires are midline. Osseous structures are normal. IMPRESSION: No acute cardiopulmonary findings. Dictated by: Dictated on workstation # [id number] Dict: 05/16/211809 Trans: 05/16/211811 [id number] Interpreted by: RUPERT WHALEY Electronically signed by: RUPERT WHALEY 05/16/211811 ECG Impression ECG Initial ECG Rhythm: Normal Sinus A/P-Cardiology Assessment/Admission Diagnosis Chest pain of undetermined etiology - no evidence of ACS UTI - management per medical services CAD: - H/o CABG in 2009. -Last MS on 04/23/20 due to mid-vessel, instent occlusion of RCA, treated with ballon angioplasty and stenting with Xience Radha 2.25x33 stent that was post- dilated to 3 mm kevin (Dr Bartlett). LAD had mild instent restenosis in prox LAD, LCX had patent stent, LVEDP 32 mmHg, preserved LV function, patent SVG to a diag, atretic LOPEZ to LAD. - Last card cath on 05/08/20 (Dr Macias) did not show any change in cor anatomy Echo of 04/23/20: LVEF 55-60%, mild dil LA,mild to mod MR, PASP 25-30 mmHg Chronic chest pain syndrome of undetermined etiology Mod hiatal hernia seen on CT of chest on 02-03-21 Abnormal ECG. ECG of 05/24/20 shows NSR, old IMI Quit smoking yesterday Hyperlipidemia being treated with atorvastatin - managed by PCP History of maturity onset diabetes mellitus. Obesity with a body mass index of approx 36 Body habitus and daytime somnolence is suggestive of REINA H/o erosive esophagitis Discussion and Recomendations Chest pain of undetermined etiology - no evidence of ACS - advise MPI Management of UTI per medical services Continue home medications including ASA d/t known h/o CAD Ok to stop Brilinta d/t last stent placement greater than 1 yr ago Continue PPI Monitor lab Replace electrolytes as indicated Further rec will be based on her hospital course We would like to thank medical services for this consut Clinical Quality Measures AMI/AHF: ASA po Prior to arrival: Yes (324 BY EMS) DAVID ERNST May 17, 2021 10:06
[2021-05-17] MEDS ORDERED: NICOTINE 21 MG (NICODERM) PATCH TD SCH (10:45)
[2021-05-17] MEDS ORDERED: CATHETER FLUSH 10 ML SYR IV PRN (11:45)
--- NOTE | 2021-05-17 12:02 | Consultation-Cardiology ---
HPI-Cardiology Cardiology Consultation: Date of Consultation 05/17/21 Time Seen by a Provider: 10:00 Date of Admission Attending Physician Shonda Davies MD Admitting Physician Willem Chamorro DO Consulting Physician JIMENA ROBLES MD, MA, FACP, FACC, FSCAI, CCDS HPI: Chief Complaint: Chest pain Ms. Champagne is a 46 yr old female admitted to 508 from the ED with increasing SOB over the last few days. She reports she has had constant chest pain across her chest for several days. Nothing makes it better, but nothing makes it worse. She reports she has chronic chest pain and this does not feel any different than what she has had before. She reports she has had nausea and diarrhea. No c/o palpitations. She feels her chest pain is unchanged from her baseline. No c/o SOB. No c/o LE swelling. She continues to smoke cigs. She states she has been compliant with her medications. Review of Systems-Cardiology Review of Systems Constitutional: No chills, No fever; malaise Eyes: No vision change Ears/Nose/Throat: No epistaxis, No recent hearing loss Respiratory: As described under HPI Cardiovascular: As described under HPI Gastrointestinal: As described under HPI Genitourinary: No hematuria Musculoskeletal: no symptoms reported Skin: No rash on exposed areas, No ulcerations on exposed areas Psychiatric/Neurological: No anxiety, No depression, No seizure, No focal weakness, No syncope Hematologic: No bleeding abnormalities All Other Systems Reviewed Negative Unless Noted: Yes [id number]-Vamdnw Hx Patient Social History Smoking Status: Current Everyday Smoker 2nd Hand Smoke Exposure: No Have you traveled recently?: No Alcohol Use?: No Pt feels they are or have been: No Tobacco type used: Cigarettes Immunizations Up To Date Tetanus Booster (TDap): More than 5yrs Date of Pneumonia Vaccine: Jun 20, 2013 Date of Influenza Vaccine: May 24, 2020 Past Medical History PMH As described under Assessment. Family Medical History Family Medical History: Has family h/o of early CAD Allergies and Home Medications Allergies Coded Allergies: Penicillins (Verified Allergy, Unknown, 05/16/21) Sulfa (Sulfonamide Antibiotics) (Verified Allergy, Unknown, 05/16/21) naproxen (Verified Allergy, Unknown, HIVES, NAUSEA--can take ibuprofen, 05/16/21) Patient Home Medication List Home Medication List Reviewed: Yes Aripiprazole (Aripiprazole) 15 Mg Tablet, 7.5 MG PO DAILY, (Reported) Entered as Reported by: SONJA OH on 04/23/20 1534 Aspirin (Children's Aspirin) 81 Mg Tab.chew, 81 MG PO ONCE Prescribed by: DAVID ERNST on 02/04/21 1017 Atorvastatin Calcium (Atorvastatin Calcium) 80 Mg Tablet, 80 MG PO DAILY, (Reported) Entered as Reported by: SONJA OH on 02/04/21 1109 Azithromycin (Azithromycin) 250 Mg Tablet, 250 MG PO DAILY Prescribed by: MITCHELL LEBRON on 02/04/21 1135 Cephalexin (Cephalexin) 500 Mg Tablet, 500 MG PO BID Prescribed by: MITCHELL LEBRON on 02/04/21 1135 Hydrocodone/Acetaminophen (Hydrocodone-Acetamin 7.5-325) 1 Each Tablet, 1 EACH PO Q6H PRN for PAIN-BREAKTHROUGH Prescribed by: MARGARET HDEZ on 03/11/21 1037 Hydroxyzine HCl (Hydroxyzine HCl) 25 Mg Tablet, 25 MG PO BID PRN for ANXIETY, (Reported) Entered as Reported by: SONJA HO on 04/23/20 1534 Ibuprofen (Advil) 200 Mg Tablet, 400 MG PO Q8H PRN for PAIN-MILD (1-4), (Reported) Entered as Reported by: SONJA OH on 04/23/20 1534 Levothyroxine Sodium (Levothyroxine) 100 Mcg Capsule, 100 MCG PO DAILY, (Reported) Entered as Reported by: SONJA OH on 02/04/21 1109 Metoprolol Tartrate (Metoprolol Tartrate) 25 Mg Tablet, 12.5 MG PO BID Prescribed by: DAVID ERNST on 02/04/21 1021 Pantoprazole Sodium (Protonix) 40 Mg Tablet.dr, 40 MG PO DAILY Prescribed by: DAVID ERNST on 02/04/21 1021 Sertraline HCl (Sertraline HCl) 100 Mg Tablet, 100 MG PO DAILY, (Reported) Entered as Reported by: SONJA OH on 04/23/20 1534 Ticagrelor (Brilinta) 90 Mg Tablet, 90 MG PO BID Prescribed by: MITCHELL LEBRON on 04/24/20 1014 Zolpidem Tartrate (Zolpidem Tartrate) 5 Mg Tablet, 5 MG PO HS PRN for SLEEP, (Reported) Entered as Reported by: SONJA OH on 04/23/20 2951 Physical Exam-Cardiology Physical Exam Vital Signs/I&O 05/17/21 05/17/21 05/17/21 05/17/21 01:00 01:40 02:00 03:03 Pulse 75 81 73 Resp 19 14 B/P (MAP) 97/70 (79) 102/62 (75) Pulse Ox 96 95 96 O2 Delivery Room Air Room Air Room Air 05/17/21 05/17/21 05/17/21 05/17/21 03:52 04:00 06:49 07:58 Pulse 72 68 82 Resp 12 11 B/P (MAP) 98/50 (66) 92/55 (67) Pulse Ox 97 97 98 O2 Delivery Room Air Room Air Room Air 05/17/21 05/17/21 08:00 09:00 Temp 36.1 Pulse 76 Resp 14 B/P (MAP) 102/64 (77) Pulse Ox 97 98 O2 Delivery Room Air Room Air 05/17/21 00:00 Intake Total 1550 ml Output Total 0 ml Balance 1550 ml Capillary Refill : Less Than 3 Seconds Constitutional: AAO x 3, well-developed, well-nourished HEENT: PERRL, hearing is well preserved, oral hygience is good Neck: carotid pulses are 2 + bilaterally Respiratory: No accessory muscle use, No respiratory distress; chest expansion is symmetric, chest is bilaterally symmetric, rhonchi (scattered; prolonged exp phase) Cardiovascular: regular rate-rhythm; No JVD; S1 and S2 Gastrointestinal: No tender; soft, round Extremities: no lower extremity edema bilateral Neurologic/Psychiatric: grossly intact (moves all extremities) Skin: No rash on exposed areas, No ulcerations on exposed areas Data Review Labs Laboratory Tests 05/16/21 17:07: White Blood Count 7.6, Red Blood Count 4.56, Hemoglobin 15.0, Hematocrit 43, Ignacia n Corpuscular Volume 95, Mean Corpuscular Hemoglobin 33, Mean Corpuscular Hemoglobin Concent 35, Red Cell Distribution Width 12.6, Platelet Count 294, Mean Platelet Volume 10.6, Immature Granulocyte % (Auto) 0, Neutrophils (%) (Auto) 37L, Lymphocytes (%) (Auto) 41, Monocytes (%) (Auto) 7, Eosinophils (%) (Auto) 15H, Basophils (%) (Auto) 1, Neutrophils # (Auto) 2.8, Lymphocytes # (Auto) 3.1, Monocytes # (Auto) 0.5, Eosinophils # (Auto) 1.1H, Basophils # (Auto) 0.1, Immature Granulocyte # (Auto) 0.0, Neutrophils % (Manual) 37, Lymphocytes % (Manual) 32, Monocytes % (Manual) 15, Eosinophils % (Manual) 16, Blood Morphology Comment NORMAL, Prothrombin Time 12.8, INR Comment 0.9, Activated Partial Thromboplast Time 31, Sodium Level 136, Potassium Level 3.8, Chloride Level 106, Carbon Dioxide Level 20L, Anion Gap 10, Blood Urea Nitrogen 15, Creatinine 0.88, Estimat Glomerular Filtration Rate 69, BUN/Creatinine Ratio 17, Glucose Level 228H, Calcium Level 9.2, Corrected Calcium 9.3, Magnesium Level 2.0, Total Bilirubin 1.2H, Aspartate Amino Transf (AST/SGOT) 16, Alanine Aminotransferase (ALT/SGPT) 18, Alkaline Phosphatase 127, Myoglobin 28.0, Tr oponin I < 0.028, B-Type Natriuretic Peptide 47.7, Total Protein 7.0, Albumin 3.9 05/16/21 17:15: SARS-CoV-2 RNA (RT-PCR) Not Detected 05/16/21 17:40: Urine Color YELLOW, Urine Clarity CLEAR, Urine pH 6.0, Urine Specific [place] >=1.030, Urine Protein NEGATIVE, Urine Glucose (UA) NEGATIVE, Urine Ketones NEGATIVE, Urine Nitrite NEGATIVE, Urine Bilirubin NEGATIVE, Urine Urobilinogen 1.0, Urine Leukocyte Esterase NEGATIVE, Urine RBC (Auto) TRACE-I, Urine RBC 2-5H , Urine WBC 5-10H, Urine Squamous Epithelial Cells 0-2, Urine Renal Epithelial Cells NONE, Urine Crystals NONE, Urine Bacteria LARGEH, Urine Casts NONE, Urine Mucus NEGATIVE, Urine Culture Indicated YES, Urine Opiates Screen NEGATIVE, Urine Oxycodone Screen NEGATIVE, Urine Methadone Screen NEGATIVE, Urine Propoxyphene Screen NEGATIVE, Urine Barbiturates Screen NEGATIVE, Ur Tricyclic Antidepressants Screen NEGATIVE, Urine Phencyclidine Screen NEGATIVE, Urine Amphetamines Screen NEGATIVE, Urine Methamphetamines Screen NEGATIVE, Urine Benzodiazepines Screen NEGATIVE, Urine Cocaine Screen NEGATIVE, Urine Cannabinoids Screen NEGATIVE 05/16/21 20:22: Glucometer 216H 05/16/21 22:52: Troponin I < 0.028 05/17/21 05:14: Glucometer 196H 05/17/21 05:15: Troponin I < 0.028, White Blood Count 6.7, Red Blood Count 3.85, Hemoglobin 12.7, Hematocrit 38, Mean Corpuscular Volume 97, Mean Corpuscular Hemoglobin 33, Mean Corpuscular Hemoglobin Concent 34, Red Cell Distribution Width 13.1, Platelet Count 240, Mean Platelet Volume 10.8, Immature Granulocyte % (Auto) 0, Neutrophils (%) (Auto) 35L, Lymphocytes (%) (Auto) 41, Monocytes (%) (Auto) 8, Eosinophils (%) (Auto) 16H, Basophils (%) (Auto) 1, Neutrophils # (Auto) 2.3, Lymphocytes # (Auto) 2.7, Monocytes # (Auto) 0.5, Eosinophils # (Auto) 1.1H, Basophils # (Auto) 0.1, Immature Granulocyte # (Auto) 0.0, Sodium Level 138, Potassium Level 4.0, Chloride Level 110H, Carbon Dioxide Level 19L, Anion Gap 9, Blood Urea Nitrogen 14, Creatinine 0.81, Estimat Glomerular Filtration Rate 75, BUN/Creatinine Ratio 17, Glucose Level 182H, Calcium Level 8.9, Triglycerides Level 214H, Cholesterol Level 174, LDL Cholesterol Direct 130H, VLDL Cholesterol 43H, HDL Cholesterol 33L 05/17/21 10:52: Glucometer 131H Microbiology 05/16/21 Urine Culture - Preliminary, Resulted Escherichia coli A/P-Cardiology Assessment/Admission Diagnosis Chest pain of undetermined etiology - no evidence of ACS UTI - management per medical services CAD: - H/o CABG in 2009. -Last SD on 04/23/20 due to mid-vessel, instent occlusion of RCA, treated with ballon angioplasty and stenting with Xience Radha 2.25x33 stent that was post- dilated to 3 mm kevin (Dr Bartlett). LAD had mild instent restenosis in prox LAD, LCX had patent stent, LVEDP 32 mmHg, preserved LV function, patent SVG to a diag, atretic LOPEZ to LAD. - Last card cath on 05/08/20 (Dr Colleen) did not show any change in cor anatomy Echo of 04/23/20: LVEF 55-60%, mild dil LA,mild to mod MR, PASP 25-30 mmHg Chronic chest pain syndrome of undetermined etiology Mod hiatal hernia seen on CT of chest on 02-03-21 Abnormal ECG. ECG of 05/24/20 shows NSR, old IMI Quit smoking yesterday Hyperlipidemia being treated with atorvastatin - managed by PCP History of maturity onset diabetes mellitus. Obesity with a body mass index of approx 36 Body habitus and daytime somnolence is suggestive of REINA H/o erosive esophagitis Discussion and Recomendations Chest pain of undetermined etiology - no evidence of ACS - advise MPI Management of UTI per medical services Continue home medications including ASA d/t known h/o CAD Ok to stop Brilinta d/t last stent placement greater than 1 yr ago Continue PPI Monitor lab Replace electrolytes as indicated Further rec will be based on her hospital course We would like to thank medical services for this consut Clinical Quality Measures AMI/AHF: ASA po Prior to arrival: Yes (324 BY EMS) JIMENA ROBLES MD FACP FACC CCDS May 17, 2021 12:01
[2021-05-17] MEDS ORDERED: ATOR40TA PO (15:24)
[2021-05-17] MEDS ORDERED: NITR100C10 PO (15:24)
[2021-05-17] MEDS ORDERED: ASPI-1238 PO (15:24)
[2021-05-17] MEDS ORDERED: ISOS30TA82 PO (15:26)
--- NOTE | 2021-05-17 16:21 | Discharge Summary ---
Discharge Summary Hospital Course Problems/Dx: (1) Chest pain Status: Acute Qualifiers: Qualified Codes: R07.82 - Intercostal pain Hospital Course Date of Admission: May 16, 2021 at 18:20 Admission Diagnosis : Chest pain Family Physician/Provider: Willem Chamorro DO Date of Discharge: 05/17/21 Discharge Diagnosis: CAD Hospital Course: Melanie Champagne is a 46 year old female with PMH CAD s/p CABG and coronary artery stenting presented with chest pain. She has not been taking any of her medications. Her troponin remained negative. She underwent a stress test which was negative. She was sent prescriptions for her Aspirin, Lipitor, and Imdur. She also had a UTI and was given a course of Macrobid. She was discharged home in stable condition. She should follow up with her PCP in a week or two. Labs and Pending Lab Test: Laboratory Tests 05/16/21 17:07: White Blood Count 7.6, Red Blood Count 4.56, Hemoglobin 15.0, Hematocrit 43, Mean Corpuscular Volume 95, Mean Corpuscular Hemoglobin 33, Mean Corpuscular Hemoglobin Concent 35, Red Cell Distribution Width 12.6, Platelet Count 294, Mean Platelet Volume 10.6, Immature Granulocyte % (Auto) 0, Neutrophils (%) (A uto) 37L, Lymphocytes (%) (Auto) 41, Monocytes (%) (Auto) 7, Eosinophils (%) (Auto) 15H, Basophils (%) (Auto) 1, Neutrophils # (Auto) 2.8, Lymphocytes # (Auto) 3.1, Monocytes # (Auto) 0.5, Eosinophils # (Auto) 1.1H, Basophils # (Auto) 0.1, Immature Granulocyte # (Auto) 0.0, Neutrophils % (Manual) 37, Lymphocytes % (Manual) 32, Monocytes % (Manual) 15, Eosinophils % (Manual) 16, Blood Morphology Comment NORMAL, Prothrombin Time 12.8, INR Comment 0.9, Activa camille Partial Thromboplast Time 31, Sodium Level 136, Potassium Level 3.8, Chloride Level 106, Carbon Dioxide Level 20L, Anion Gap 10, Blood Urea Nitrogen 15, Creatinine 0.88, Estimat Glomerular Filtration Rate 69, BUN/Creatinine Ratio 17, Glucose Level 228H, Calcium Level 9.2, Corrected Calcium 9.3, Magnesium Level 2.0, Total Bilirubin 1.2H, Aspartate Amino Transf (AST/SGOT) 16, Alanine Aminotransferase (ALT/SGPT) 18, Alkaline Phosphatase 127, Myoglobin 28.0, Troponin I < 0.028, B-Type Natriuretic Peptide 47.7, Total Protein 7.0, Albumin 3.9 05/16/21 17:15: SARS-CoV-2 RNA (RT-PCR) Not Detected 05/16/21 17:40: Urine Color YELLOW, Urine Clarity CLEAR, Urine pH 6.0, Urine Specific [place] >=1.030, Urine Protein NEGATIVE, Urine Glucose (UA) NEGATIVE, Urine Ketones NEGATIVE, Urine Nitrite NEGATIVE, Urine Bilirubin NEGATIVE, Urine Urobilinogen 1.0, Urine Leukocyte Esterase NEGATIVE, Urine RBC (Auto) TRACE-I, Urine RBC 2-5H , Urine WBC 5-10H, Urine Squamous Epithelial Cells 0-2, Urine Renal Epithelial Cells NONE, Urine Crystals NONE, Urine Bacteria LARGEH, Urine Casts NONE, Urine Mucus NEGATIVE, Urine Culture Indicated YES, Urine Opiates Screen NEGATIVE, Urine Oxycodone Screen NEGATIVE, Urine Methadone Screen NEGATIVE, Urine Propo xyphene Screen NEGATIVE, Urine Barbiturates Screen NEGATIVE, Ur Tricyclic Antidepressants Screen NEGATIVE, Urine Phencyclidine Screen NEGATIVE, Urine Amphetamines Screen NEGATIVE, Urine Methamphetamines Screen NEGATIVE, Urine Benzodiazepines Screen NEGATIVE, Urine Cocaine Screen NEGATIVE, Urine Cannabinoids Screen NEGATIVE 05/16/21 20:22: Glucometer 216H 05/16/21 22:52: Troponin I < 0.028 05/17/21 05:14: Glucometer 196H 05/17/21 05:15: Troponin I < 0.028, White Blood Count 6.7, Red Blood Count 3.85, Hemoglobin 12.7, Hematocrit 38, Mean Corpuscular Volume 97, Mean Corpuscular Hemoglobin 33, Mean Corpuscular Hemoglobin Concent 34, Red Cell Distribution Width 13.1, Platelet Count 240, Mean Platelet Volume 10.8, Immature Granulocyte % (Auto) 0, Neutrophils (%) (Auto) 35L, Lymphocytes (%) (Auto) 41, Monocytes (%) (Auto) 8, Eosinophils (%) (Auto) 16H, Basophils (%) (Auto) 1, Neutrophils # (Auto) 2.3, Lymphocytes # (Auto) 2.7, Monocytes # (Auto) 0.5, Eosinophils # (Auto) 1.1H, Basophils # (Auto) 0.1, Immature Granulocyte # (Auto) 0.0, Sodium Level 138, Potassium Level 4.0, Chloride Level 110H, Carbon Dioxide Level 19L, Anion Gap 9, Blood Urea Nitrogen 14, Creatinine 0.81, Estimat Glomerular Filtration Rate 75, BUN/Creatinine Ratio 17, Glucose Level 182H, Calcium Level 8.9, Triglycerides Level 214H, Cholesterol Level 174, LDL Cholesterol Direct 130H, VLDL Cholesterol 43H, HDL Cholesterol 33L 05/17/21 10:52: Glucometer 131H Microbiology 05/16/21 Urine Culture - Preliminary, Resulted Escherichia coli Home Meds Active Lipitor (Atorvastatin Calcium) 40 Mg Tablet 40 Mg PO HS 30 Days Aspirin EC (Aspirin) 81 Mg Tablet.dr 81 Mg PO DAILY 30 Days Nitrofurantoin Wise-Mcr 100 mg (Nitrofurantoin Monohyd/M-Cryst) 100 Mg Capsule 100 Mg PO BID WITH MEALS 5 Days Assessment/Pt Instructions Take medications as prescribed. Follow up with your PCP. Return with worsening chest pain or if you feel like you are getting worse. Discharge Planning: <30 minutes discharge planning Discharge Instructions Discharge Diet: Low Sodium Diet Activity as Tolerated: Yes Consultations Cardiology Discharge Physical Examination Vital Signs Vital Signs Date Time Temp Pulse Resp B/P (MAP) Pulse Ox O2 Delivery O2 Flow Rate FiO2 05/17/21 14:00 82 05/17/21 12:23 14 121/81 (94) 96 Room Air 05/17/21 08:00 36.1 General Appearance: No Apparent Distress, Obese Respiratory: Lungs Clear, Normal Breath Sounds, No Respiratory Distress Cardiovascular: Regular Rate, Rhythm, No Edema, No Murmur Gastrointestinal: Normal Bowel Sounds, Non Tender, Soft Extremity: Normal Inspection, Non Tender, No Pedal Edema Skin: Normal Color, Warm/Dry Neurologic/Psychiatric: Alert, Oriented x3, No Motor/Sensory Deficits, Normal Mood/Affect Allergies: Coded Allergies: Penicillins (Verified Allergy, Unknown, 05/16/21) Sulfa (Sulfonamide Antibiotics) (Verified Allergy, Unknown, 05/16/21) naproxen (Verified Allergy, Unknown, HIVES, NAUSEA--can take ibuprofen, 05/16/21) Copy Copies To 1: WILLEM CHAMORRO DO Discharge Summary Date of Admission May 16, 2021 at 18:20 Date of Discharge Discharge Date: May 17, 2021 Discharge Time: 16:20 Admission Diagnosis Chest pain Consults/Procedures Consulations Cardiology Procedures Stress test Discharge Diagnosis (1) CAD (coronary artery disease) Status: Acute Clinical Quality Measures AMI/AHF: ASA po Prior to arrival: Yes (324 BY EMS) RAINE HERNANDEZ MD May 17, 2021 15:34
--- NOTE | 2021-05-17 16:33 | STRESS TEST ---
DATE OF SERVICE: 05/17/2021 RESTING AND POST REGADENOSON TECHNETIUM-99M TETROFOSMIN SPECT CT IMAGING ORDERING PHYSICIAN: Gina Hernández APRN ATTENDING PHYSICIAN: Dr. Davies. PRIMARY PHYSICIAN: Dr. Chamorro. CLINICAL DIAGNOSES: Coronary artery disease, chest discomfort. Baseline images were carried out after injection of 10.98 mCi of technetium-99m Tetrofosmin. This was followed by 0.4 mg regadenoson and 32.7 mCi of technetium-99m Tetrofosmin for stress imaging. The electrocardiogram showed sinus rhythm at baseline. There is evidence of old inferior wall myocardial infarction. The electrocardiogram did not change significantly with regadenoson infusion. She tolerated the procedure well. Review of images at rest and following stress indicates a predominantly fixed inferior perfusion defect. Gated images show inferior hypokinesis. Left ventricular ejection fraction is calculated to be 54%. Left ventricular end diastolic volume is 33 mL. TID is absent (1.15). CONCLUSIONS: 1. Inferior wall myocardial infarction with a small amount of ted-infarct ischemia. 2. Inferior wall hypokinesis. 3. Well preserved global left ventricular systolic function with ejection fraction of 54%. CC: Dr. Davies -- requested, unable to deliver. Job ID: [id number] DocumentID: [id number] Dictated Date: 05/17/2021 14:07:21 Corrugator Operator Helper Date: 05/17/2021 16:32:41 Dictated By: JIMENA ROBLES MD, MA, FACP, FACC,
[2021-05-18] MEDS ORDERED: NICOTINE PATCH REMOVAL TP SCH (08:59)
== END 2021-05-17 18:00 | disposition home or self-care (01) ==
LOC: EDUNIT# 16:57 → ER 16:59 → CSD 18:20
PROVIDERS: ADMIT Internal Medicine; ATTEND Internal Medicine
DX: I25.10 Atherosclerotic heart disease of native coronary artery without angina pectoris (principal); I24.9 Acute ischemic heart disease, unspecified; I25.2 Old myocardial infarction; I10 Essential (primary) hypertension; N30.00 Acute cystitis without hematuria; J44.9 Chronic obstructive pulmonary disease, unspecified; E78.00 Pure hypercholesterolemia, unspecified; G40.909 Epilepsy, unspecified, not intractable, without status epilepticus; G43.909 Migraine, unspecified, not intractable, without status migrainosus; K21.00 Gastro-esophageal reflux disease with esophagitis, without bleeding; M19.90 Unspecified osteoarthritis, unspecified site; E03.9 Hypothyroidism, unspecified; E11.9 Type 2 diabetes mellitus without complications; G47.9 Sleep disorder, unspecified; F17.210 Nicotine dependence, cigarettes, uncomplicated; F41.9 Anxiety disorder, unspecified; Z79.890 Hormone replacement therapy; Z79.899 Other long term (current) drug therapy; Z79.82 Long term (current) use of aspirin; Z90.49 Acquired absence of other specified parts of digestive tract; Z90.89 Acquired absence of other organs; Z95.1 Presence of aortocoronary bypass graft; Z85.41 Personal history of malignant neoplasm of cervix uteri
CPT/HCPCS: 71045; 78452; 80048; 80053; 80061; 80306; 81000; 82947 ×2; 83735; 83874; 83880; 84484 ×2; 84703; 85007; 85025; 85027; 85610; 85730; 87077; 87088; 87186; 87636; 93005 ×2; 93017; 93041; 94640; 96374; 96375; 96376; 99284; A9502; G0378; 36415

== ENCOUNTER 2021-05-23 17:41 | Inpatient (IN) | payer MEDICARE, MEDICAID ==
[~2021-05-23] VITALS: Ht 173 cm; Wt 107.9 kg
[~2021-05-23 17:41] MED LIST changes: +NITR100C10 PO
[2021-05-23 18:07] LABS: BASOPHILS # (AUTO) 0.1 10^3/uL (0.0-0.1); BASOPHILS % (AUTO) 1 % (0-10); EOSINOPHILS # (AUTO) 1.8 10^3/uL (0.0-0.3); EOSINOPHILS % (AUTO) 18 % (0-10); HEMATOCRIT 42 % (35-52); HEMOGLOBIN 14.3 g/dL (11.5-16.0); LYMPHOCYTES # (AUTO) 2.3 10^3/uL (1.0-4.0); LYMPHOCYTES % (AUTO) 23 % (12-44); MEAN CORPUSCULAR HEMOGLOBIN 33 pg (25-34); MEAN CORPUSCULAR HGB CONC 34 g/dL (32-36); MEAN CORPUSCULAR VOLUME 97 fL (80-99); MEAN PLATELET VOLUME 10.9 fL (9.0-12.2); MONOCYTES # (AUTO) 0.7 10^3/uL (0.0-1.0); MONOCYTES % (AUTO) 7 % (0-12); NEUTROPHILS # (AUTO) 5.1 10^3/uL (1.8-7.8); NEUTROPHILS % (AUTO) 51 % (42-75); PLATELET COUNT 307 10^3/uL (130-400); WHITE BLOOD COUNT 9.9 10^3/uL (4.3-11.0)
--- NOTE | 2021-05-23 18:13 | ED Chest Pain ---
General Chief Complaint: Chest Pain Stated Complaint: CP Source: patient, EMS History of Present Illness Date Seen by Provider: May 23, 2021 Time Seen by Provider: 17:55 Initial Comments PT ARRIVES VIA EMS PT STATES SHE WAS SITTING [place] [employer], AND BEGAN TO HAVE CHEST PAIN--BEGAN AROUND 1700 TONIGHT PAIN IS BELOW LEFT BREAST, IN CENTER OF CHEST AND DOWN LEFT ARM RATES PAIN 10/10 STATES SHE WAS SHORT OF BREATH BUT NOT NOW + SWEATS, NOT NOW HAD NAUSEA AND VOMITED X 2, HAS SLIGHT NAUSEA NOW STATES SHE FELT LIKE SHE WAS GOING TO PASS OUT NO SWELLING IN LEGS/FEET OR PAIN IN CALVES EMS GAVE 324 MG ASPIRIN AND FLUIDS INITIAL BP WAS 70'S SYSTOLIC, AND FLUID BOLUS BROUGHT BP UP TO > 100 SYSTOLIC, BUT NTG WAS HELD DUE TO HYPOTENSION. PT HAS EXTENSIVE CARDIAC HISTORY WITH NSTEMI 04/22/2020, WITH HISTORY OF CABG, AND MULTIPLE STENTS PT WAS HOSPITALIZED LAST WEEK 05/16-05/17 FOR CHEST PAIN, HAD ABNORMAL STRESS TEST AT THAT TIME, AND FOLLOWED UP WITH DR. ROBLES TODAY AND IS SCHEDULED TO HAVE A CARDIAC CATH TOMORROW MORNING AT 0900. PT IS ON BRILINTA AND ASPIRIN PT DENIES ANY MISSED DOSES OF MEDICATIONS PT WITH MULTITUDE OF VISITS--17 VISITS HERE SINCE 04/22/2020--NEARLY ALL FOR CHEST PAIN PT HAS NOT BEEN VACCINATED FOR COVID-19 DOES NOT WEAR A MASK AND DOES NOT FOLLOW ANY SOCIAL DISTANCING OR ISOLATION PRECAUTIONS PCP: DR. 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 ROBLES Allergies and Home Medications Allergies Coded Allergies: Penicillins (Verified Allergy, Unknown, 05/16/21) Sulfa (Sulfonamide Antibiotics) (Verified Allergy, Unknown, 05/16/21) naproxen (Verified Allergy, Unknown, HIVES, NAUSEA--can take ibuprofen, 05/16/21) Patient Home Medication List Aspirin (Aspirin EC) 81 Mg Tablet., 81 MG PO DAILY Prescribed by: RAINE HERNANDEZ on 05/17/21 152 Atorvastatin Calcium (Lipitor) 40 Mg Tablet, 40 MG PO HS Prescribed by: RAINE HERNANDEZ on 05/17/21 1524 Isosorbide Mononitrate (Isosorbide Mononitrate ER) 30 Mg Tab.er.24h, 30 MG PO DAILY Prescribed by: RAINE HERNANDEZ on 05/17/21 1526 Nitrofurantoin Monohyd/M-Cryst (Nitrofurantoin Harvey-Mcr 100 mg) 100 Mg Capsule, 100 MG PO BID WITH MEALS Prescribed by: RAINE HERNANDEZ on 05/17/21 1524 Discontinued Medications Aripiprazole (Aripiprazole) 15 Mg Tablet, 7.5 MG PO DAILY, (Reported) Discontinued Reason: No Longer Taking Entered as Reported by: SONJA OH on 04/23/20 1534 Aspirin (Children's Aspirin) 81 Mg Tab.chew, 81 MG PO ONCE Discontinued Reason: No Longer Taking Prescribed by: DAVID ERNST on 02/04/21 1017 Atorvastatin Calcium (Atorvastatin Calcium) 80 Mg Tablet, 80 MG PO DAILY, (Reported) Discontinued Reason: No Longer Taking Entered as Reported by: SONJA OH on 02/04/21 1109 Azithromycin (Azithromycin) 250 Mg Tablet, 250 MG PO DAILY Discontinued Reason: No Longer Taking Prescribed by: MITCHELL LEBRON on 02/04/21 1135 Cephalexin (Cephalexin) 500 Mg Tablet, 500 MG PO BID Discontinued Reason: No Longer Taking Prescribed by: MITCHELL LEBRON on 02/04/21 1135 Hydrocodone/Acetaminophen (Hydrocodone-Acetamin 7.5-325) 1 Each Tablet, 1 EACH PO Q6H PRN for PAIN-BREAKTHROUGH Discontinued Reason: No Longer Taking Prescribed by: MARGARET HDEZ on 03/11/21 1037 Hydroxyzine HCl (Hydroxyzine HCl) 25 Mg Tablet, 25 MG PO BID PRN for ANXIETY, (Reported) Discontinued Reason: No Longer Taking Entered as Reported by: SONJA OH on 04/23/20 1534 Ibuprofen (Advil) 200 Mg Tablet, 400 MG PO Q8H PRN for PAIN-MILD (1-4), (Reported) Discontinued Reason: No Longer Taking Entered as Reported by: SONJA OH on 04/23/20 1534 Levothyroxine Sodium (Levothyroxine) 100 Mcg Capsule, 100 MCG PO DAILY, (Reported) Discontinued Reason: No Longer Taking Entered as Reported by: SONJA OH on 02/04/21 1109 Metoprolol Tartrate (Metoprolol Tartrate) 25 Mg Tablet, 12.5 MG PO BID Discontinued Reason: No Longer Taking Prescribed by: DAVID ERNST on 02/04/21 1021 Pantoprazole Sodium (Protonix) 40 Mg Tablet.dr, 40 MG PO DAILY Discontinued Reason: No Longer Taking Prescribed by: DAVID ERNST on 02/04/21 1021 Sertraline HCl (Sertraline HCl) 100 Mg Tablet, 100 MG PO DAILY, (Reported) Discontinued Reason: No Longer Taking Entered as Reported by: SONJA OH on 04/23/20 1534 Ticagrelor (Brilinta) 90 Mg Tablet, 90 MG PO BID Discontinued Reason: No Longer Taking Prescribed by: MITCHELL LEBRON on 04/24/20 1014 Zolpidem Tartrate (Zolpidem Tartrate) 5 Mg Tablet, 5 MG PO HS PRN for SLEEP, (Reported) Discontinued Reason: No Longer Taking Entered as Reported by: SONJA OH on 04/23/20 1534 Review of Systems Review of Systems Constitutional: see HPI, diaphoresis, dizziness EENTM: No Symptoms Reported Respiratory: See HPI, Shortness of Air Cardiovascular: See HPI, Chest Pain; Denies Edema; Lightheadedness; Denies Palpitations, Denies Syncope Gastrointestinal: Nausea, Vomiting Genitourinary: No Symptoms Reported Musculoskeletal: see HPI Skin: no symptoms reported Psychiatric/Neurological: No Symptoms Reported Endocrine: No Symptoms Reported Hematologic/Lymphatic: No Symptoms Reported Past Fbrnptw-Ctdouh-Uzivjy Hx Immunizations Up To Date Tetanus Booster (TDap): More than 5yrs Seasonal Allergies Seasonal Allergies: No Past Medical History Surgery/Hospitalization HX: CABG 2009 CARDIAC CATHS--MULTIPLE STENTS TO RCA AND ANOTHER STENT TO RCA 04/23/20, STENT TO CIRCUMFLEX; -CATH 04/23/[address] POMPA: FINDINGS: 1.Left main: patent. 2.LAD: mild in-stent restenosis in the proximal LAD. No distal disease. 3.Left circumflex artery: patent stent. No significant disease. 4.RCA: occluded mid RCA stent. 5.Left heart catheterization: LV pressure 94/9 mmHg. LVEDP 32 mmHg. Aortic pressure 86/61 mmHg. No gradient across the aortic valve. Inferior hypokinesis. Preserved LV systolic function. 6. Saphenous vein graft angiography: Patent saphenous vein graft to a diagonal artery. 7. LOPEZ angiography: Atretic LOPEZ. 8. Aortic arch angiogram: No evidence of dissection or aneurysm. One saphenous vein graft is noted. Patent proximal segments of the great arteries. LAST CARDIAC CATH 09/19/20 : ANATOMY: Left Main is free of obstructive disease Left Anterior Descending has mild to moderate disease nonobstructive disease, vein graft to diagonal artery is patent, 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 Patent stents in the right coronary artery was small vessel disease distally 2. 50 percent proximal stenosis in the vein graft to the diagonal artery, small vessel disease distally 3. Mild to moderate disease in the left coronary system, nonobstructive disease 4. Elevated left ventricular end-diastolic pressure DISCUSSION AND RECOMMENDATION: Coronary anatomy has not changed significantly compared to the study of April 24, 2020. Elevated troponin is probably due to small vessel disease, conservative management is recommended -CARDIAC CATH 05/08/[address] ARGUELLES: CONCLUSION: 1. Patent stents in the right coronary artery was small vessel disease distally 2. 50 percent proximal stenosis in the vein graft to the diagonal artery, small vessel disease distally 3. Mild to moderate disease in the left coronary system, nonobstructive disease 4. Elevated left ventricular end-diastolic pressure FABRICE FUNDOPLICATION CHOLECYSTECTOMY TONSILLECTOMY/ADENOIDECTOMY TRACHEOSTOMY 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) Sexually Transmitted Disease: Yes (HERPES) Genitourinary: No Gastrointestinal: Yes (S/P FABRICE FUNDOPLICATION) Gastroesophageal Reflux, Esophagitis, Hiatal Hernia, Gall Bladder Disease Musculoskeletal: Yes Arthritis Endocrine: Yes Hypothyroidsim, Diabetes, Non-Insulin dep HEENT: Yes Chronic Ear Infection Hearing Impairment: Hard of Hearing Cancer: Yes Cervical Did You Recieve Any Treatments: Yes What Type of Treatment Did You: Surgical Intervention Psychosocial: Yes Sleep Difficulties, Anxiety, Suicide Attempts, Depression Integumentary: No Blood Disorders: No Adverse Reaction/Blood Tranf: No Family Medical History ADDITIONAL PAST MEDICAL AND PROCEDURAL HISTORY: -PT HAD NSTEMI AND WAS ADMITTED 04/22/20-04/24/20, HAD CARDIAC CATH 04/23/20 AND HAD STENT X 1 TO RCA -PT HAS PREVIOUSLY HAD A CABG IN 2009, MULTIPLE STENTS TO RCA, AND STENT TO CIRCUMFLEX IN THE PAST. -CARDIAC CATH 05/08/[address] 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 Patent stents in the right coronary artery was small vessel disease distally 2. 50 percent proximal stenosis in the vein graft to the diagonal artery, small vessel disease distally 3. Mild to moderate disease in the left coronary system, nonobstructive disease 4. Elevated left ventricular end-diastolic pressure DISCUSSION AND RECOMMENDATION: Coronary anatomy has not changed significantly compared to the study of April 24, 2020. Elevated troponin is probably due to small vessel disease, conservative management is recommended Physical Exam Vital Signs Vital Signs - First Documented 05/23/21 17:43 Temp 35.9 Pulse 80 Resp 20 B/P (MAP) 118/67 (84) Pulse Ox 97 O2 Delivery Room Air Capillary Refill : Height, Weight, BMI Height: 5'8.00" Weight: 189lbs. 0.0oz. [id number]; 36.64 BMI Method:Stated General Appearance: No Apparent Distress, WD/WN, Obese, Other (DOES NOT APPEAR TO BE IN ANY DISCOMFORT OR DISTRESS. RESTING COMFORTABLY. ) Respiratory: Normal Breath Sounds, No Accessory Muscle Use, No Respiratory Distress Cardiovascular: Regular Rate, Rhythm, No Edema, No JVD, No Murmur, Normal Peripheral Pulses Gastrointestinal: Non Tender, Soft Extremity: Normal Capillary Refill, Normal Inspection, Normal Range of Motion, Non Tender, No Calf Tenderness, No Pedal Edema Neurologic/Psychiatric: Alert, Oriented x3, No Motor/Sensory Deficits, Normal Mood/Affect, desktop manager II-XII Norm as Tested Skin: Normal Color, Warm/Dry, Tattoos/Piercings (TATTOOS) Progress/Results/Core Measures Results/Orders Lab Results Laboratory Tests Test 05/23/21 17:45 Range/Units White Blood Count 9.9 4.3-11.0 10^3/uL Red Blood Count 4.33 3.80-5.11 10^6/uL Hemoglobin 14.3 11.5-16.0 g/dL Hematocrit 42 35-52 % Mean Corpuscular Volume 97 80-99 fL Mean Corpuscular Hemoglobin 33 25-34 pg Mean Corpuscular Hemoglobin Concent 34 32-36 g/dL Red Cell Distribution Width 12.7 10.0-14.5 % Platelet Count 307 130-400 10^3/uL Mean Platelet Volume 10.9 9.0-12.2 fL Immature Granulocyte % (Auto) 0 % Neutrophils (%) (Auto) 51 42-75 % Lymphocytes (%) (Auto) 23 12-44 % Monocytes (%) (Auto) 7 0-12 % Eosinophils (%) (Auto) 18 H 0-10 % Basophils (%) (Auto) 1 0-10 % Neutrophils # (Auto) 5.1 1.8-7.8 10^3/uL Lymphocytes # (Auto) 2.3 1.0-4.0 10^3/uL Monocytes # (Auto) 0.7 0.0-1.0 10^3/uL Eosinophils # (Auto) 1.8 H 0.0-0.3 10^3/uL Basophils # (Auto) 0.1 0.0-0.1 10^3/uL Immature Granulocyte # (Auto) 0.0 0.0-0.1 10^3/uL Neutrophils % (Manual) 53 % Lymphocytes % (Manual) 21 % Monocytes % (Manual) 10 % Eosinophils % (Manual) 16 % Blood Morphology Comment NORMAL Prothrombin Time 13.1 12.2-14.7 SEC INR Comment 1.0 0.8-1.4 Activated Partial Thromboplast Time 29 24-35 SEC Sodium Level 136 135-145 MMOL/L Potassium Level 4.1 3.6-5.0 MMOL/L Chloride Level 104 98-107 MMOL/L Carbon Dioxide Level 20 L 21-32 MMOL/L Anion Gap 12 5-14 MMOL/L Blood Urea Nitrogen 13 7-18 MG/DL Creatinine 0.87 0.60-1.30 MG/DL Estimat Glomerular Filtration Rate 69 BUN/Creatinine Ratio 15 Glucose Level 129 H 70-105 MG/DL Calcium Level 9.4 8.5-10.1 MG/DL Corrected Calcium 9.4 8.5-10.1 MG/DL Magnesium Level 1.7 1.6-2.4 MG/DL Total Bilirubin 0.8 0.1-1.0 MG/DL Aspartate Amino Transf (AST/SGOT) 13 5-34 U/L Alanine Aminotransferase (ALT/SGPT) 16 0-55 U/L Alkaline Phosphatase 127 40-136 U/L Total Creatine Kinase 70 29-168 U/L Creatine Kinase MB 1.0 <6.6 NG/ML Myoglobin 25.0 10.0-92.0 NG/ML Troponin I < 0.028 <0.028 NG/ML Total Protein 7.1 6.4-8.2 GM/DL Albumin 4.0 3.2-4.5 GM/DL Amylase Level 66 25-125 U/L Lipase 77 8-78 U/L Serum Test, Qualitative NEGATIVE NEGATIVE My Orders Orders - HEATH CAMARILLO DO Ed Iv/Invasive Line Start (05/23/21 17:58) Ekg Tracing (05/23/21 17:58) Monitor-Rhythm Ecg Trace Only (05/23/21 17:58) Cbc With Automated Diff (05/23/21 17:58) Magnesium (05/23/21 17:58) Chest 1 View, Ap/Pa Only (05/23/21 17:58) Ekg Tracing (05/23/21 17:58) Comprehensive Metabolic Panel (05/23/21 17:58) Myoglobin Serum (05/23/21 17:58) Protime With Inr (05/23/21 17:58) Partial Thromboplastin Time (05/23/21 17:58) O2 (05/23/21 17:58) Ed Iv/Invasive Line Start (05/23/21 17:58) Creatine Kinase (05/23/21 17:58) Creatine Kinase Mb (05/23/21 17:58) Lipase (05/23/21 17:58) Amylase (05/23/21 17:58) BNP (05/23/21 17:58) Troponin I (05/23/21 17:45) Covid 19 Inhouse Test (05/23/21 18:08) Hcg,Qualitative Serum (05/23/21 18:09) Manual Differential (05/23/21 17:45) Fentanyl Inj (Sublimaze Injection) (05/23/21 18:15) Ondansetron Injection (Zofran Injectio (05/23/21 18:30) Ed Iv/Invasive Line Start (05/23/21 18:37) Ns Iv 1000 Ml (Sodium Chloride 0.9%) (05/23/21 18:45) Medications Given in ED Current Medications Medications Dose Ordered Sig/Sara Route Start Time Stop Time Status Last Admin Dose Admin Fentanyl Citrate 50 mcg ONCE ONCE IVP 05/23/21 18:15 05/23/21 18:16 DC 05/23/21 18:33 50 MCG Vital Signs/I&O 05/23/21 17:43 Temp 35.9 Pulse 80 Resp 20 B/P (MAP) 118/67 (84) Pulse Ox 97 O2 Delivery Room Air Progress Progress Note : Progress Note CONTINUED IV FLUIDS GIVEN ZOFRAN FOR NAUSEA GAVE FENTANYL FOR PAIN NTG HELD BP IS 100 SYSTOLIC ON ARRIVAL. Initial ECG Impression Date: May 23, 2021 Initial ECG Impression Time: 17:44 Initial ECG Rate: 80 Initial ECG Rhythm: Normal Sinus (OLD INFERIOR Q WAVES) Initial ECG Comparisson: Unchanged Diagnostic Imaging Comments CXR-- Reviewed: Reviewed by Me Departure Communication (Admissions) 1840--SPOKE WITH DR. ROBLES. ORDERS NOTED. ACCEPTS PT FOR ADMIT Impression Primary Impression: Chest pain Additional Impressions: CAD (coronary artery disease) S/P CABG (coronary artery bypass graft) S/P CARDIAC STENTS Disposition: ADMITTED INPATIENT Condition: Stable Admissions Decision to Admit Reason: Admit from ER (General) Decision to Admit/Date: May 23, 2021 Time/Decision to Admit Time: 18:40 Departure-Patient Inst. Referrals: EDWAR LOBO DO (PCP/Family) Primary Care Physician HEATH CAMARILLO DO May 23, 2021 18:13
[2021-05-23 18:14] LABS: CHLORIDE 104 MMOL/L (98-107); POTASSIUM 4.1 MMOL/L (3.6-5.0); SODIUM 136 MMOL/L (135-145)
[2021-05-23 18:15] LABS: AMYLASE 66 U/L (25-125); CALCIUM 9.4 MG/DL (8.5-10.1); PROTHROMBIN TIME PATIENT 13.1 SEC (12.2-14.7)
[2021-05-23] MEDS ORDERED: fentaNYL INJ 100 MCG/2 ML AMP IVP ONE ×2 (18:15→20:15)
[2021-05-23 18:16] LABS: GLUCOSE 129 MG/DL (70-105)
[2021-05-23 18:17] LABS: TOTAL PROTEIN 7.1 GM/DL (6.4-8.2)
[2021-05-23 18:18] LABS: CARBON DIOXIDE 20 MMOL/L (21-32)
[2021-05-23 18:19] LABS: BILIRUBIN,TOTAL 0.8 MG/DL (0.1-1.0)
[2021-05-23 18:20] LABS: ALKALINE PHOSPHATASE 127 U/L (40-136); CREATININE SERUM 0.87 MG/DL (0.60-1.30); GFR ESTIMATED 69
[2021-05-23 18:21] LABS: BUN/CREATININE RATIO 15
[2021-05-23 18:23] LABS: ALANINE AMINOTRANSFERASE 16 U/L (0-55); MAGNESIUM 1.7 MG/DL (1.6-2.4)
[2021-05-23 18:24] LABS: CREATINE KINASE 70 U/L (29-168); LIPASE 77 U/L (8-78)
[2021-05-23] MEDS ORDERED: ONDANSETRON 4 MG/2 ML (SDV) Z0FRAN IVP ONE (18:30)
[2021-05-23 18:31] LABS: EOSINOPHILS % (MANUAL) 16 %; LYMPHOCYTES % (MANUAL) 21 %; MONOCYTES % (MANUAL) 10 %; NEUTROPHILS % (MANUAL) 53 %; RBC MORPH NORMAL
[2021-05-23] MEDS ORDERED: ONDANSETRON 4 MG/2 ML (SDV) Z0FRAN ONE (18:44)
[2021-05-23] MEDS ORDERED: ENOXAPARIN 100 MG/1 ML (LOVENOX) SYR SC ONE (18:45)
[2021-05-23] MEDS ORDERED: NS IV 1000 ML 1,000 ML IV SCH (18:45)
--- NOTE | 2021-05-23 19:53 | Diagnostic Imaging Report ---
INDICATION: Chest pain COMPARED 05/16/2021 FINDINGS: Sternal wires midline. Heart size within normal limits. There is mild prominence of central pulmonary vascularity but no focal consolidation or pneumonia. No convincing evidence of edema. Sternal wires midline. No pleural fluid. No pneumothorax. IMPRESSION: There may be mild vascular congestion but clear lungs with no pleural pathology and a stable unremarkable heart size. Dictated by: Dictated on workstation # [id number]
[2021-05-23 20:25] VITALS: BP 110/62
[2021-05-23] MEDS ORDERED: NS IV 1000 ML 1,000 ML ONE (21:21)
[2021-05-23] MEDS ORDERED: ONDANSETRON 4 MG/2 ML (SDV) Z0FRAN IV PRN (21:45)
[2021-05-23] MEDS ORDERED: NITROGLYCERIN 0.4 MG SL TABS BTL 25'S SL PRN (21:45)
[2021-05-23] MEDS: NS IV 1000 ML 1,000 ML IV SCH (22:20)
[2021-05-24] MEDS: fentaNYL INJ 100 MCG/2 ML AMP IV PRN ×5 (00:25→15:53)
[2021-05-24] MEDS: NS IV 1000 ML 1,000 ML IV SCH ×3 (04:49→16:59)
[2021-05-24] MEDS: inSUlin ASPART (NovoLOG) 1 UNIT/0.01 ML (CHARGE PER UNIT) SC SCH ×4 (06:00→20:10)
[2021-05-24] MEDS ORDERED: ENOXAPARIN 100 MG/1 ML (LOVENOX) SYR SC SCH (06:00)
[2021-05-24 06:05] LABS: BASOPHILS % (AUTO) 1 % (0-10); EOSINOPHILS # (AUTO) 1.2 10^3/uL (0.0-0.3); EOSINOPHILS % (AUTO) 20 % (0-10); HEMATOCRIT 38 % (35-52); HEMOGLOBIN 12.5 g/dL (11.5-16.0); LYMPHOCYTES # (AUTO) 1.7 10^3/uL (1.0-4.0); LYMPHOCYTES % (AUTO) 29 % (12-44); MEAN CORPUSCULAR HEMOGLOBIN 33 pg (25-34); MEAN CORPUSCULAR HGB CONC 33 g/dL (32-36); MEAN CORPUSCULAR VOLUME 99 fL (80-99); MEAN PLATELET VOLUME 11.3 fL (9.0-12.2); MONOCYTES # (AUTO) 0.5 10^3/uL (0.0-1.0); MONOCYTES % (AUTO) 8 % (0-12); NEUTROPHILS # (AUTO) 2.5 10^3/uL (1.8-7.8); NEUTROPHILS % (AUTO) 43 % (42-75); PLATELET COUNT 222 10^3/uL (130-400); WHITE BLOOD COUNT 5.9 10^3/uL (4.3-11.0)
[2021-05-24 06:23] LABS: CALCIUM 8.4 MG/DL (8.5-10.1)
[2021-05-24 06:27] LABS: CREATININE SERUM 0.79 MG/DL (0.60-1.30)
[2021-05-24] MEDS ORDERED: FLU QUADRIvalent (3YOA+) 60 mcg/0.5 ml 2021-22(AFLURIA) IM ONE (07:00)
--- NOTE | 2021-05-24 07:55 | Consultation-Cardiology ---
HPI-Cardiology Cardiology Consultation: Date of Consultation 05/24/21 Time Seen by a Provider: 08:05 Date of Admission 05-23-21 Attending Physician Karie Aguilar MD [facility] Admitting Physician Willem Chamorro DO Consulting Physician Karie Aguilar MD HPI: Chief Complaint: Chest pain Ms. Da Silva is a 46 yr old female admitted to [facility] from the ED with c/o CP. She reports yesterday she was at [employer] when she developed left sided, sharp, stabbing chest pain which radiated across her chest, down her left arm and up into her neck. She reports the pain was constant, but intensity would vary. Discomfort persisted for approx 1 1/2 hours. She reports n/v. She reports diaphoersis. She reports the discomfort did not change in r/t activity. She denies any syncope or near syncope. No LE swelling. She reports feeling dizzy and lightheaded with the episode of chest pain. She continues to have episodes of chest pain this morning which last for a few minutes to seconds. She herself is concerned her chest pain is r/t coronary artery dz. Review of Systems-Cardiology Review of Systems Constitutional: No chills, No fever; lightheadedness Eyes: No vision change Ears/Nose/Throat: No epistaxis, No nasal drainage, No recent hearing loss Respiratory: As described under HPI Cardiovascular: As described under HPI Gastrointestinal: As described under HPI Genitourinary: No dysuria, No hematuria Musculoskeletal: no symptoms reported Skin: No rash on exposed areas, No ulcerations on exposed areas Psychiatric/Neurological: anxiety; No depression, No seizure, No focal weakness, No syncope Hematologic: No bleeding abnormalities CTF-Xbqxxi-Ozsmom Hx Patient Social History Smoking Status: Current Everyday Smoker 2nd Hand Smoke Exposure: No Have you traveled recently?: No Alcohol Use?: No Pt feels they are or have been: No Tobacco type used: Cigarettes Immunizations Up To Date Tetanus Booster (TDap): More than 5yrs Date of Pneumonia Vaccine: Jun 20, 2013 Date of Influenza Vaccine: May 24, 2020 Past Medical History PMH As described under Assessment. Family Medical History Family Medical History: Has family h/o of early CAD Allergies and Home Medications Allergies Coded Allergies: Penicillins (Verified Allergy, Unknown, 05/16/21) Sulfa (Sulfonamide Antibiotics) (Verified Allergy, Unknown, 05/16/21) naproxen (Verified Allergy, Unknown, HIVES, NAUSEA--can take ibuprofen, 05/16/21) Patient Home Medication List Aspirin (Aspirin EC) 81 Mg Tablet.dr, 81 MG PO DAILY Prescribed by: RAINE HERNANDEZ on 05/17/21 152 Atorvastatin Calcium (Lipitor) 40 Mg Tablet, 40 MG PO HS Prescribed by: RAINE HERNANDEZ on 05/17/21 1524 Isosorbide Mononitrate (Isosorbide Mononitrate ER) 30 Mg Tab.er.24h, 30 MG PO DAILY Prescribed by: RAINE HERNANDEZ on 05/17/21 1526 Nitrofurantoin Monohyd/M-Cryst (Nitrofurantoin Caswell-Mcr 100 mg) 100 Mg Capsule, 100 MG PO BID WITH MEALS Prescribed by: RAINE HERNANDEZ on 05/17/21 1524 Discontinued Medications Aripiprazole (Aripiprazole) 15 Mg Tablet, 7.5 MG PO DAILY, (Reported) Discontinued Reason: No Longer Taking Entered as Reported by: SONJA OH on 04/23/20 1534 Aspirin (Children's Aspirin) 81 Mg Tab.chew, 81 MG PO ONCE Discontinued Reason: No Longer Taking Prescribed by: DAVID ERNST on 02/04/21 1017 Atorvastatin Calcium (Atorvastatin Calcium) 80 Mg Tablet, 80 MG PO DAILY, (Reported) Discontinued Reason: No Longer Taking Entered as Reported by: SONJA OH on 02/04/21 1109 Azithromycin (Azithromycin) 250 Mg Tablet, 250 MG PO DAILY Discontinued Reason: No Longer Taking Prescribed by: MITCHELL LEBRON on 02/04/21 1135 Cephalexin (Cephalexin) 500 Mg Tablet, 500 MG PO BID Discontinued Reason: No Longer Taking Prescribed by: MITCHELL LEBRON on 02/04/21 1135 Hydrocodone/Acetaminophen (Hydrocodone-Acetamin 7.5-325) 1 Each Tablet, 1 EACH PO Q6H PRN for PAIN-BREAKTHROUGH Discontinued Reason: No Longer Taking Prescribed by: MARGARET HDEZ on 03/11/21 1037 Hydroxyzine HCl (Hydroxyzine HCl) 25 Mg Tablet, 25 MG PO BID PRN for ANXIETY, (Reported) Discontinued Reason: No Longer Taking Entered as Reported by: SONJA OH on 04/23/20 1534 Ibuprofen (Advil) 200 Mg Tablet, 400 MG PO Q8H PRN for PAIN-MILD (1-4), (Reported) Discontinued Reason: No Longer Taking Entered as Reported by: SONJA OH on 04/23/20 1534 Levothyroxine Sodium (Levothyroxine) 100 Mcg Capsule, 100 MCG PO DAILY, (Reported) Discontinued Reason: No Longer Taking Entered as Reported by: SONJA OH on 02/04/21 1109 Metoprolol Tartrate (Metoprolol Tartrate) 25 Mg Tablet, 12.5 MG PO BID Discontinued Reason: No Longer Taking Prescribed by: DAVID ERNST on 02/04/21 1021 Pantoprazole Sodium (Protonix) 40 Mg Tablet.dr, 40 MG PO DAILY Discontinued Reason: No Longer Taking Prescribed by: DAVID ERNST on 02/04/21 1021 Sertraline HCl (Sertraline HCl) 100 Mg Tablet, 100 MG PO DAILY, (Reported) Discontinued Reason: No Longer Taking Entered as Reported by: SONJA OH on 04/23/20 1534 Ticagrelor (Brilinta) 90 Mg Tablet, 90 MG PO BID Discontinued Reason: No Longer Taking Prescribed by: MITCHELL LEBRON on 04/24/20 1014 Zolpidem Tartrate (Zolpidem Tartrate) 5 Mg Tablet, 5 MG PO HS PRN for SLEEP, (Reported) Discontinued Reason: No Longer Taking Entered as Reported by: SONJA OH on 04/23/20 1534 Physical Exam-Cardiology Physical Exam Vital Signs/I&O 05/24/21 05/24/21 05/24/21 05/24/21 00:00 00:00 00:28 01:00 Temp 36.4 Pulse 65 66 Resp 18 B/P (MAP) 101/57 Pulse Ox 96 96 O2 Delivery Room Air Room Air 05/24/21 05/24/21 05/24/21 04:00 05:01 08:00 Temp 36.1 36.7 Pulse 75 78 Resp 18 14 B/P (MAP) 91/71 114/80 Pulse Ox 95 96 93 O2 Delivery Room Air Room Air Room Air 05/24/21 00:00 Intake Total 1780 ml Output Total 300 ml Balance 1480 ml Capillary Refill : Less Than 3 Seconds Constitutional: AAO x 3, well-developed, well-nourished HEENT: PERRL, hearing is well preserved Neck: No carotid bruit; carotid pulses are 2 + bilaterally Respiratory: No accessory muscle use, No respiratory distress; chest expansion is symmetric, chest is bilaterally symmetric, other (prolonged exp phase) Cardiovascular: regular rate-rhythm; No JVD; S1 and S2 Gastrointestinal: No tender; soft, round, audible bowel sounds Extremities: no lower extremity edema bilateral Neurologic/Psychiatric: grossly intact (moves all extremities) Skin: No rash on exposed areas, No ulcerations on exposed areas Data Review Labs Laboratory Tests 05/23/21 17:45: White Blood Count 9.9, Red Blood Count 4.33, Hemoglobin 14.3, Hematocrit 42, Mean Corpuscular Volume 97, Mean Corpuscular Hemoglobin 33, Mean Corpuscular Hemoglobin Concent 34, Red Cell Distribution Width 12.7, Platelet Count 307, Mean Platelet Volume 10.9, Immature Granulocyte % (Auto) 0, Neutrophils (%) (Auto) 51, Lymphocytes (%) (Auto) 23, Monocytes (%) (Auto) 7, Eosinophils (%) (Auto) 18H, Basophils (%) (Auto) 1, Neutrophils # (Auto) 5.1, Lymphocytes # (Auto) 2.3, Monocytes # (Auto) 0.7, Eosinophils # (Auto) 1.8H, Basophils # (Auto) 0.1, Immature Granulocyte # (Auto) 0.0, Neutrophils % (Manual) 53, Lymphocytes % (Manual) 21, Monocytes % (Manual) 10, Eosinophils % (Manual) 16, Blood Morphology Comment NORMAL, Prothrombin Time 13.1, INR Comment 1.0, Activated Partial Thromboplast Time 29, Sodium Level 136, Potassium Level 4.1, Chloride Level 104, Carbon Dioxide Level 20L, Anion Gap 12, Blood Urea Nitrogen 13, Creatinine 0.87, Estimat Glomerular Filtration Rate 69, BUN/Creatinine Ratio 15, Glucose Level 129H, Calcium Level 9.4, Corrected Calcium 9.4, Magnesium Level 1.7, Total Bilirubin 0.8, Aspartate Amino Transf (AST/SGOT) 13, Alanine Aminotransferase (ALT/SGPT) 16, Alkaline Phosphatase 127, Total Creatine Kinase 70, Creatine Kinase MB 1.0, Myoglobin 25.0, Troponin I < 0.028, B-Type Natriuretic Peptide 109.3H, Total Protein 7.1, Albumin 4.0, Amylase Level 66, Lipase 77, Serum Test, Qualitative NEGATIVE 05/23/21 18:25: SARS-CoV-2 RNA (RT-PCR) Not Detected 05/24/21 05:13: White Blood Count 5.9, Red Blood Count 3.84, Hemoglobin 12.5, Hematocrit 38, Mean Corpuscular Volume 99, Mean Corpuscular Hemoglobin 33, Mean Corpuscular Hemoglobin Concent 33, Red Cell Distribution Width 13.0, Platelet Count 222, Mean Platelet Volume 11.3, Immature Granulocyte % (Auto) 0, Neutrophils (%) (Auto) 43, Lymphocytes (%) (Auto) 29, Monocytes (%) (Auto) 8, Eosinophils (%) (Auto) 20H, Basophils (%) (Auto) 1, Neutrophils # (Auto) 2.5, Lymphocytes # (Auto) 1.7, Monocytes # (Auto) 0.5, Eosinophils # (Auto) 1.2H, Basophils # (Auto) 0.0, Immature Granulocyte # (Auto) 0.0, Sodium Level 138, Potassium Level 4.0, Chloride Level 109H, Carbon Dioxide Level 21, Anion Gap 8, Blood Urea Nitrogen 10, Creatinine 0.79, Estimat Glomerular Filtration Rate 78, BUN/Creatinine Ratio 13, Glucose Level 110H, Calcium Level 8.4L, Triglycerides Level 203H, Cholesterol Level 175, LDL Cholesterol Direct 129, VLDL Cholesterol 41H, HDL Cholesterol 29L Radiology NAME: WAN DA SILVA [facility] REC#: [id number] PT STATUS: ADM IN : 1975 PHYSICIAN: HEATH CAMARILLO DO ADMIT DATE: 05/23/21/[facility] Signed Date of Exam:05/23/21 CHEST 1 VIEW, AP/PA ONLY INDICATION: Chest pain COMPARED 05/16/2021 FINDINGS: Sternal wires midline. Heart size within normal limits. There is mild prominence of central pulmonary vascularity but no focal consolidation or pneumonia. No convincing evidence of edema. Sternal wires midline. No pleural fluid. No pneumothorax. IMPRESSION: There may be mild vascular congestion but clear lungs with no pleural pathology and a stable unremarkable heart size. Dictated by: Dictated on workstation # [id number] Dict: 05/23/211943 Trans: 05/23/211957 [facility] [id number] Interpreted by: KURTIS HESTER Electronically signed by: KURTIS HESTER 05/23/211957 ECG Impression ECG Initial ECG Rhythm: Normal Sinus A/P-Cardiology Assessment/Admission Diagnosis Chest pain - of undetermined etiology, symptoms suggestive of anginal equivalent CAD: - H/o CABG in 2009. -Last CA on 04/23/20 due to mid-vessel, instent occlusion of RCA, treated with ballon angioplasty and stenting with Xience Radha [id number] stent that was post- dilated to 3 mm kevin (Dr Bartlett). LAD had mild instent restenosis in prox LAD, LCX had patent stent, LVEDP 32 mmHg, preserved LV function, patent SVG to a diag, atretic LOPEZ to LAD. - Last card cath on 05/08/20 (Dr Macias) did not show any change in cor anatomy - MPI of 05-17-21: Inferior wall myocardial infarction with a small amount of ted-infarct ischemia. Inferior wall hypokinesis. Well preserved global left ventricular systolic function with ejection fraction of 54%. - Echo of 04/23/20: LVEF 55-60%, mild dil LA,mild to mod MR, PASP 25-30 mmHg GI - Mod hiatal hernia seen on CT of chest on 02-03-21 - H/o erosive esophagitis Abnormal ECG - ECG of 05/24/20 shows NSR, old IMI Tobaccoism - cessation advised Hyperlipidemia - being treated with atorvastatin - managed by PCP History of maturity onset diabetes mellitus. - managed by PCP Obesity - with a body mass index of approx 36 Body habitus and daytime somnolence is suggestive of REINA - sleep studies advised Discussion and Recomendations Chest pain of undetermined etiology which continue to persist this morning. Symptoms suggestive of anginal equivalent. Based on her symptoms, h/o, her concerns that her symptoms are cardiac in origin and risk factors cardiac cath is advised. We have discussed the procedure, risks, benefits and potential complications of cardiac cath with possible ad hoc coronary intervention. She verbalizes understanding and is agreeable. We will proceed later today. Continue home medications including BB and anti-platelet tx Monitor lab closely Replace electrolytes as indicated Further recs will be based on her hospital course We would like to thank medical services for this consult Clinical Quality Measures AMI/AHF: ASA po Prior to arrival: Yes DAVID ERNST May 24, 2021 07:55
[2021-05-24] MEDS ORDERED: ASPIRIN E.C. 81 MG (ECOTRIN) TAB PO SCH (09:00)
[2021-05-24] MEDS ORDERED: LIDOCAINE 1% INJ 20 ML 20 ML VIAL ONE (09:31)
[2021-05-24] MEDS ORDERED: HEParin 1000 UNIT/ML (10ML VIAL) FOR BOLUS ONE ×2 (09:31→13:34)
[2021-05-24] MEDS ORDERED: HEParin (CATH LAB) 2,000 ML IV ONE (09:32)
[2021-05-24] MEDS ORDERED: ISOS30TA82 PO (09:59)
[2021-05-24] MEDS ORDERED: ATOR40TA70 PO (09:59)
[2021-05-24] MEDS ORDERED: ASPI-1238 PO (09:59)
[2021-05-24] MEDS ORDERED: NAPR220T66 PO (09:59)
[2021-05-24] MEDS ORDERED: MIDAZOLAM 5 MG/5 ML (VERSED) VIAL ONE (12:42)
[2021-05-24] MEDS ORDERED: fentaNYL INJ 100 MCG/2 ML AMP ONE (12:42)
[2021-05-24] MEDS ORDERED: EPTIFIBATIDE BOLUS 20 ML IV ONE (14:06)
[2021-05-24] MEDS ORDERED: ASPIRIN 81 MG CHEW (CHILDREN'S ASA) ONE (14:09)
[2021-05-24] MEDS ORDERED: CLOPIDOGREL 300 MG (PLAVIX) TABLET PO ONE (14:09)
--- NOTE | 2021-05-24 14:34 | Consultation-Cardiology ---
HPI-Cardiology Cardiology Consultation: Date of Consultation 05/24/21 Time Seen by a Provider: 13:30 Date of Admission Attending Physician Karie Aguilar MD [facility] Admitting Physician Willem Chamorro DO Consulting Physician KARIE AGUILAR MD, FACP, [facility] HPI: Chief Complaint: Chest pain Ms. Champagne is a 46 yr old female admitted to [facility] from the ED with c/o CP. She reports yesterday she was at [employer] when she developed left sided, sharp, stabbing chest pain which radiated across her chest, down her left arm and up into her neck. She reports the pain was constant, but intensity would vary. Discomfort persisted for approx 1 1/2 hours. She reports n/v. She reports diaphoersis. She reports the discomfort did not change in r/t activity. She denies any syncope or near syncope. No LE swelling. She reports feeling dizzy and lightheaded with the episode of chest pain. She continues to have episodes of chest pain this morning which last for a few minutes to seconds. She herself is concerned her chest pain is r/t coronary artery dz. Review of Systems-Cardiology Review of Systems Constitutional: No chills, No fever; lightheadedness Eyes: No vision change Ears/Nose/Throat: No epistaxis, No nasal drainage, No recent hearing loss Respiratory: As described under HPI Cardiovascular: As described under HPI Gastrointestinal: As described under HPI Genitourinary: No dysuria, No hematuria Musculoskeletal: no symptoms reported Skin: No rash on exposed areas, No ulcerations on exposed areas Psychiatric/Neurological: anxiety; No depression, No seizure, No focal weakness, No syncope Hematologic: No bleeding abnormalities PQP-Omlehj-Fjyblf Hx Patient Social History Smoking Status: Current Everyday Smoker 2nd Hand Smoke Exposure: No Have you traveled recently?: No Alcohol Use?: No Pt feels they are or have been: No Tobacco type used: Cigarettes Immunizations Up To Date Tetanus Booster (TDap): More than 5yrs Date of Pneumonia Vaccine: Jun 20, 2013 Date of Influenza Vaccine: May 24, 2020 Past Medical History PMH As described under Assessment. Family Medical History Family Medical History: Has family h/o of early CAD Allergies and Home Medications Allergies Coded Allergies: Penicillins (Verified Allergy, Unknown, 05/16/21) Sulfa (Sulfonamide Antibiotics) (Verified Allergy, Unknown, 05/16/21) naproxen (Verified Allergy, Unknown, HIVES, NAUSEA--can take ibuprofen, 05/16/21) Patient Home Medication List Home Medication List Reviewed: Yes Aspirin (Aspirin EC) 81 Mg Tablet.dr, 81 MG PO DAILY, (Reported) Entered as Reported by: SONJA OH on 05/24/21958 Last Action: Reviewed Atorvastatin Calcium (Atorvastatin Calcium) 40 Mg Tablet, 40 MG PO DAILY, (Reported) Entered as Reported by: SONJA OH on 05/24/21958 Last Action: Reviewed Isosorbide Mononitrate (Isosorbide Mononitrate ER) 30 Mg Tab.er.24h, 30 MG PO DAILY, (Reported) Entered as Reported by: SONJA OH on 05/24/21958 Last Action: Reviewed Naproxen Sodium (Aleve) 220 Mg Tablet, 220-440 MG PO BID PRN for PAIN-MILD (1- 4), (Reported) Entered as Reported by: SONJA OH on 05/24/21958 Last Action: Reviewed Discontinued Medications Aripiprazole (Aripiprazole) 15 Mg Tablet, 7.5 MG PO DAILY, (Reported) Discontinued Reason: No Longer Taking Entered as Reported by: SONJA OH on 04/23/20 1534 Aspirin (Children's Aspirin) 81 Mg Tab.chew, 81 MG PO ONCE Discontinued Reason: No Longer Taking Prescribed by: DAVID ERNST on 02/04/21 1017 Aspirin (Aspirin EC) 81 Mg Tablet., 81 MG PO DAILY Discontinued Reason: No Longer Taking Prescribed by: RAINE HERNANDEZ on 05/17/21 152 Last Action: Discontinued Atorvastatin Calcium (Atorvastatin Calcium) 80 Mg Tablet, 80 MG PO DAILY, (Reported) Discontinued Reason: No Longer Taking Entered as Reported by: SONJA OH on 02/04/21 1109 Atorvastatin Calcium (Lipitor) 40 Mg Tablet, 40 MG PO HS Discontinued Reason: No Longer Taking Prescribed by: RAINE HERNANDEZ on 05/17/21 1524 Last Action: Discontinued Azithromycin (Azithromycin) 250 Mg Tablet, 250 MG PO DAILY Discontinued Reason: No Longer Taking Prescribed by: MITCHELL LEBRON on 02/04/21 1135 Cephalexin (Cephalexin) 500 Mg Tablet, 500 MG PO BID Discontinued Reason: No Longer Taking Prescribed by: MITCHELL LEBRON on 02/04/21 1135 Hydrocodone/Acetaminophen (Hydrocodone-Acetamin 7.5-325) 1 Each Tablet, 1 EACH PO Q6H PRN for PAIN-BREAKTHROUGH Discontinued Reason: No Longer Taking Prescribed by: MARGARET HDEZ on 03/11/21 1037 Hydroxyzine HCl (Hydroxyzine HCl) 25 Mg Tablet, 25 MG PO BID PRN for ANXIETY, (Reported) Discontinued Reason: No Longer Taking Entered as Reported by: SONJA OH on 04/23/20 1534 Ibuprofen (Advil) 200 Mg Tablet, 400 MG PO Q8H PRN for PAIN-MILD (1-4), (Reported) Discontinued Reason: No Longer Taking Entered as Reported by: SONJA OH on 04/23/20 1534 Isosorbide Mononitrate (Isosorbide Mononitrate ER) 30 Mg Tab.er.24h, 30 MG PO DAILY Discontinued Reason: No Longer Taking Prescribed by: RAINE HERNANDEZ on 05/17/21 1526 Last Action: Discontinued Levothyroxine Sodium (Levothyroxine) 100 Mcg Capsule, 100 MCG PO DAILY, (Reported) Discontinued Reason: No Longer Taking Entered as Reported by: SONJA OH on 02/04/21 1109 Metoprolol Tartrate (Metoprolol Tartrate) 25 Mg Tablet, 12.5 MG PO BID Discontinued Reason: No Longer Taking Prescribed by: DAVID ERNST on 02/04/21 1021 Nitrofurantoin Monohyd/M-Cryst (Nitrofurantoin [place]-Mcr 100 mg) 100 Mg Capsule, 100 MG PO BID WITH MEALS Discontinued Reason: No Longer Taking Prescribed by: RAINE HERNANDEZ on 05/17/21 1524 Last Action: Discontinued Pantoprazole Sodium (Protonix) 40 Mg Tablet.dr, 40 MG PO DAILY Discontinued Reason: No Longer Taking Prescribed by: DAVID ERNST on 02/04/21 1021 Sertraline HCl (Sertraline HCl) 100 Mg Tablet, 100 MG PO DAILY, (Reported) Discontinued Reason: No Longer Taking Entered as Reported by: SONJA OH on 04/23/20 1534 Ticagrelor (Brilinta) 90 Mg Tablet, 90 MG PO BID Discontinued Reason: No Longer Taking Prescribed by: MITCHELL LEBRON on 04/24/20 1014 Zolpidem Tartrate (Zolpidem Tartrate) 5 Mg Tablet, 5 MG PO HS PRN for SLEEP, (Reported) Discontinued Reason: No Longer Taking Entered as Reported by: SONJA OH on 04/23/20 6006 Physical Exam-Cardiology Physical Exam Vital Signs/I&O 05/24/21 05/24/21 05/24/21 05/24/21 04:00 05:01 06:31 08:00 Temp 36.1 36.7 Pulse 75 73 78 Resp 18 14 B/P (MAP) 91/71 114/80 Pulse Ox 95 96 93 O2 Delivery Room Air Room Air Room Air 05/24/21 05/24/21 05/24/21 05/24/21 08:51 09:30 09:45 09:57 Pulse 73 72 74 Resp 21 20 10 B/P (MAP) 107/70 Pulse Ox 94 96 94 94 O2 Delivery Room Air 05/24/21 05/24/21 05/24/21 05/24/21 09:57 10:00 10:15 10:45 Temp 36.9 Pulse 71 68 70 75 Resp 13 11 23 16 B/P (MAP) 107/70 105/71 Pulse Ox 95 95 93 94 O2 Delivery Room Air 05/24/21 05/24/21 05/24/21 05/24/21 11:00 11:15 11:30 11:45 Pulse 68 71 73 70 Resp 17 21 13 12 B/P (MAP) 114/79 Pulse Ox 94 93 93 93 05/24/21 05/24/21 05/24/21 05/24/21 11:57 12:00 12:00 12:15 Temp 36.0 Pulse 74 72 70 70 Resp 14 9 11 15 B/P (MAP) 106/66 100/67 106/66 Pulse Ox 96 95 96 88 O2 Delivery Room Air 05/24/21 05/24/21 12:30 12:45 Pulse 69 71 Resp 20 16 Pulse Ox 92 91 05/24/21 00:00 Intake Total 1780 ml Output Total 300 ml Balance 1480 ml Capillary Refill : Less Than 3 Seconds Constitutional: AAO x 3, well-developed, well-nourished HEENT: PERRL, hearing is well preserved Neck: No carotid bruit; carotid pulses are 2 + bilaterally Respiratory: No accessory muscle use, No respiratory distress; chest expansion is symmetric, chest is bilaterally symmetric, other (prolonged exp phase) Cardiovascular: regular rate-rhythm; No JVD; S1 and S2 Gastrointestinal: No tender; soft, round, audible bowel sounds Extremities: no lower extremity edema bilateral Neurologic/Psychiatric: grossly intact (moves all extremities) Skin: No rash on exposed areas, No ulcerations on exposed areas Data Review Labs Laboratory Tests 05/23/21 17:45: White Blood Count 9.9, Red Blood Count 4.33, Hemoglobin 14.3, Hematocrit 42, Mean Corpuscular Volume 97, Mean Corpuscular Hemoglobin 33, Mean Corpuscular Hem oglobin Concent 34, Red Cell Distribution Width 12.7, Platelet Count 307, Mean Platelet Volume 10.9, Immature Granulocyte % (Auto) 0, Neutrophils (%) (Auto) 51, Lymphocytes (%) (Auto) 23, Monocytes (%) (Auto) 7, Eosinophils (%) (Auto) 18H, Basophils (%) (Auto) 1, Neutrophils # (Auto) 5.1, Lymphocytes # (Auto) 2.3, Monocytes # (Auto) 0.7, Eosinophils # (Auto) 1.8H, Basophils # (Auto) 0.1, Immature Granulocyte # (Auto) 0.0, Neutrophils % (Manual) 53, Lymphocytes % (Ma nual) 21, Monocytes % (Manual) 10, Eosinophils % (Manual) 16, Blood Morphology Comment NORMAL, Prothrombin Time 13.1, INR Comment 1.0, Activated Partial Thromboplast Time 29, Sodium Level 136, Potassium Level 4.1, Chloride Level 104, Carbon Dioxide Level 20L, Anion Gap 12, Blood Urea Nitrogen 13, Creatinine 0.87, Estimat Glomerular Filtration Rate 69, BUN/Creatinine Ratio 15, Glucose Level 129H, Calcium Level 9.4, Corrected Calcium 9.4, Magnesium Level 1.7, Total Bi lirubin 0.8, Aspartate Amino Transf (AST/SGOT) 13, Alanine Aminotransferase (ALT/SGPT) 16, Alkaline Phosphatase 127, Total Creatine Kinase 70, Creatine Kinase MB 1.0, Myoglobin 25.0, Troponin I < 0.028, B-Type Natriuretic Peptide 109.3H, Total Protein 7.1, Albumin 4.0, Amylase Level 66, Lipase 77, Serum Test, Qualitative NEGATIVE 05/23/21 18:25: SARS-CoV-2 RNA (RT-PCR) Not Detected 05/24/21 05:13: White Blood Count 5.9, Red Blood Count 3.84, Hemoglobin 12.5, Hematocrit 38, Mean Corpuscular Volume 99, Mean Corpuscular Hemoglobin 33, Mean Corpuscular Hemoglobin Concent 33, Red Cell Distribution Width 13.0, Platelet Count 222, Mean Platelet Volume 11.3, Immature Granulocyte % (Auto) 0, Neutrophils (%) (Auto) 43, Lymphocytes (%) (Auto) 29, Monocytes (%) (Auto) 8, Eosinophils (%) (Auto) 20H, Basophils (%) (Auto) 1, Neutrophils # (Auto) 2.5, Lymphocytes # (Auto) 1.7, Monocytes # (Auto) 0.5, Eosinophils # (Auto) 1.2H, Basophils # (Auto) 0.0, Immature Granulocyte # (Auto) 0.0, Sodium Level 138, Potassium Level 4.0, Chloride Level 109H, Carbon Dioxide Level 21, Anion Gap 8, Blood Urea Nitrogen 10, Creatinine 0.79, Estimat Glomerular Filtration Rate 78, BUN/Creatinine Ratio 13, Glucose Level 110H, Calcium Level 8.4L, Triglycerides Level 203H, Cholesterol Level 175, LDL Cholesterol Direct 129, VLDL Cholesterol 41H, HDL Cholesterol 29L 05/24/21 10:45: Glucometer 107 A/P-Cardiology Assessment/Admission Diagnosis Unstable angina, treated with PCI on 05/24/21 (see below) CAD: - H/o CABG in 2009. -Last WI on 04/23/20 due to mid-vessel, instent occlusion of RCA, treated with ballon angioplasty and stenting with Xience Radha 2.25x33 stent that was post- dilated to 3 mm kevin (Dr Bartlett). LAD had mild instent restenosis in prox LAD, LCX had patent stent, LVEDP 32 mmHg, preserved LV function, patent SVG to a diag, atretic LOPEZ to LAD. - Last card cath on 05/08/20 (Dr Macias) did not show any change in cor anatomy - MPI of 05-17-21: Inferior wall myocardial infarction with a small amount of ted-infarct ischemia. Inferior wall hypokinesis. Well preserved global left ventricular systolic function with ejection fraction of 54%. - Echo of 04/23/20: LVEF 55-60%, mild dil LA,mild to mod MR, PASP 25-30 mmHg - Last card cath on 05/24/21: patent stents in the L cor system, occluded/atretic LOPEZ to LAD, patent SVG to an OM with 70% ostial stenosis that was successfully stented on 05/24/21 with Radha 2.5 x 18 mm stent (deployed at 20 milton), midvessel instent occlusion of RCA and 90% proximal instent stenosis of RCA, prox RCA stenosis reduced to 50% with balloon angioplasty, distal RCA occlusion could not be opened up, LVEDP 17 mmHg GI - Mod hiatal hernia seen on CT of chest on 02-03-21 - H/o erosive esophagitis Abnormal ECG - ECG of 05/24/20 shows NSR, old IMI Tobaccoism - cessation advised Hyperlipidemia - being treated with atorvastatin - managed by PCP History of maturity onset diabetes mellitus. - managed by PCP Obesity - with a body mass index of approx 36 Body habitus and daytime somnolence is suggestive of REINA - sleep studies advised Discussion and Recomendations Because of continuing chest pain, we proceeded with card cath and cor intervention as described above after she had provided informed consent Continue DAPT Continue home medications including BB Monitor lab closely Replace electrolytes as indicated Further recs will be based on her hospital course We would like to thank Medical services for this consult Clinical Quality Measures AMI/AHF: ASA po Prior to arrival: Yes KARIE AGUILAR MD FACP FAC CCDS May 24, 2021 14:34
[2021-05-24] MEDS ORDERED: PATIENT MAY USE OWN MEDS, ALL PO SCH (14:45)
[2021-05-24] MEDS ORDERED: ATROPINE INJECTION 1 MG/10 ML SYR (ABBOTT) ONE (15:57)
[2021-05-24] MEDS ORDERED: ACETAMINOPHEN 500 MG TAB (TYLENOL) PO PRN (16:00)
[2021-05-24] MEDS: oxyCODONE/APAP 5/325MG (PERCOCET 5) TABLET PO PRN ×2 (16:31→23:13)
--- NOTE | 2021-05-24 17:07 | CARDIAC CATHETERIZATION ---
DATE OF SERVICE: 05/24/2021 CARDIAC CATHETERIZATION AND CORONARY INTERVENTION REPORT The patient is a 46-year-old lady, who has a known history of coronary artery disease and who previously had coronary artery bypass surgery and multiple percutaneous coronary interventions. She was hospitalized with symptoms suggestive of unstable angina. Cardiac catheterization was carried out after having obtained informed consent for cardiac catheterization and possible ad hoc coronary intervention. DESCRIPTION OF PROCEDURE: She was brought to the cardiac catheterization laboratory in a fasting state. The right groin was prepared and draped in the usual sterile fashion. Lidocaine 1% was used for local anesthesia. Modified Seldinger technique was used to advance a 5-Luxembourger sheath in the right femoral artery, 5-Luxembourger JL4 catheter was used for left coronary angiography, 5-Luxembourger JR4 catheter was used for left heart catheterization and pullback from there into the aorta. Left ventricular angiography was not performed. We used 5-Luxembourger JR4 catheter to engage the right coronary artery and perform right coronary angiography. We used the same catheter to engage and carry out angiography of the aortocoronary graft to an obtuse marginal. We then used the JR4 diagnostic catheter to carry out angiography of the left subclavian artery to visualize the left internal mammary artery graft to the left anterior descending. Subsequently, percutaneous intervention was carried out first to the right coronary and then to the aortocoronary graft to the obtuse marginal. PERCUTANEOUS INTERVENTION to THE RIGHT CORONARY ARTERY: We exchanged the sheath over a wire for a 6-Luxembourger sheath. We gave 4000 units of intravenous heparin. We used a 6-Luxembourger JR4 guide catheter with side holes. We used multiple wires. Finally, we were able to cross the long occlusion in the right coronary with a Whisper extra support wire and the tip was placed in the distal vessel. We carried out balloon angioplasty throughout the course of the complete occlusion in the mid and distal right coronary artery with a 2.0 x 20 mm balloon. Multiple balloon inflations were carried out. We were able to improve proximal 90% in-stent restenosis of about 50%. However, the distal right coronary artery remains occluded despite multiple attempts to open it. PERCUTANEOUS INTERVENTION TO THE AORTOCORONARY GRAFT TO AN OBTUSE MARGINAL: The aortocoronary graft to an obtuse marginal was exhibiting 70% to 80% ostial stenosis. We engaged the graft with a 6-Luxembourger JR4 guide catheter with side holes. We advanced a BMW wire across the lesion and the tip was placed in the distal vessel. We advanced Radha 2.5 x 18 mm stent. This was carefully positioned to cover the lesion at the ostium. This stent was deployed at 20 atmospheres. Subsequent angiography reveals no significant residual stenosis. Flow throughout the vessel was normal. HEMODYNAMICS: Left ventricular end-diastolic pressure following coronary angiography was 15 mmHg. There was no significant pressure gradient on pullback across the aortic valve. Ascending aortic pressure was 102/64 with a mean of 81 mmHg. CORONARY ANGIOGRAPHY: Left main coronary artery does not exhibit significant disease. Left anterior descending and left circumflex artery exhibits a patent stent, in the proximal portion of the left anterior descending and in the mid portion of the left circumflex. The right coronary artery was exhibiting 90% stenosis in its proximal portion that was reduced to 50% following balloon angioplasty. The mid and distal right coronary artery are completely occluded and attempted percutaneous intervention was unsuccessful. A left internal mammary artery graft to left anterior descending artery is atretic and is occluded in its proximal to mid portion. An aortocoronary graft to an obtuse marginal had 70% ostial stenosis and was successfully stented with Radha 2.5 x 18 mm stent that was deployed at 20 atmospheres. CONCLUSIONS: 1. Coronary artery disease as detailed above. The left anterior descending and left circumflex arteries have patent stents. An obtuse marginal branch of the left circumflex has a patent aortocoronary graft, this graft had 70% ostial stenosis and was successfully stented with Radha 2.5 x 18 mm stent, deployed at 20 atmospheres. The right coronary artery had 90% proximal stenosis, which went to 50% stenosis following balloon angioplasty. The mid and distal right coronary artery have in-stent occlusion. This is a very long segment of occlusion and attempts at percutaneous intervention to this portion of the vessel were unsuccessful. 2. Mild elevation of left ventricular end-diastolic pressure. DISCUSSION AND RECOMMENDATIONS: Risk factor modification has been advised. Dual antiplatelet therapy is being continued. Because of low blood pressure, she is not a suitable candidate for beta blockers or MORRO inhibitors or angiotensin receptor blockers. Statin therapy is being continued. Job ID: [id number] DocumentID: [id number] Dictated Date: 05/24/2021 14:50:29 Track Walker Date: 05/24/2021 17:06:40 Dictated By: JIMENA ROBLES MD, MA, FACP, FACC, MTDD
[2021-05-25] MEDS: NS IV 1000 ML 1,000 ML IV SCH ×2 (01:51→07:57)
[2021-05-25] MEDS: inSUlin ASPART (NovoLOG) 1 UNIT/0.01 ML (CHARGE PER UNIT) SC SCH (06:40)
[2021-05-25] MEDS: oxyCODONE/APAP 5/325MG (PERCOCET 5) TABLET PO PRN (08:02)
[2021-05-25] MEDS ORDERED: ENOXAPARIN 40 MG/0.4 ML (LOVENOX) SYR SC SCH (09:00)
[2021-05-25] MEDS ORDERED: ASPIRIN 81 MG CHEW (CHILDREN'S ASA) PO SCH (09:00)
[2021-05-25] MEDS ORDERED: CLOPIDOGREL 75 MG (PLAVIX) TABLET PO SCH (09:00)
[2021-05-25] MEDS ORDERED: METO-333 PO (09:22)
[2021-05-25] MEDS ORDERED: CLOP75TA28 PO (09:22)
--- NOTE | 2021-05-25 09:23 | Discharge Inst-Cardiology ---
Discharge Inst-Cardiac Discharge Medications New Medications: Metoprolol Tartrate (Metoprolol Tartrate) 25 Mg Tablet 12.5 MG PO BID, #30 TAB 5 Refills Clopidogrel Bisulfate (Clopidogrel) 75 Mg Tablet 75 MG PO DAILY, #90 TAB 3 Refills Continued Medications: Aspirin (Aspirin EC) 81 Mg Tablet.dr 81 MG PO DAILY, TAB Atorvastatin Calcium (Atorvastatin Calcium) 40 Mg Tablet 40 MG PO DAILY, TAB Discontinued Medications: Isosorbide Mononitrate (Isosorbide Mononitrate ER) 30 Mg Tab.er.24h 30 MG PO DAILY, TAB Naproxen Sodium (Aleve) 220 Mg Tablet 220-440 MG PO BID PRN for PAIN-MILD (1-4), TAB New, Converted or Re-Newed RX: Transmitted to Pharmacy Patient Instructions Patient Instructions: Please schedule follow up appointment to see Dr. Aguilar in one week DAVID ERNST May 25, 2021 09:23
--- NOTE | 2021-05-25 15:54 | Progress Note - Cardiology ---
Cardiology SOAP Progress Note Subjective: No shortness of breath at rest No cp or palp or syncope or swelling No n/v/d No groin discomfor Objective: I&O/Vital Signs 05/25/21 05/25/21 05/25/21 05/25/21 04:00 04:04 07:48 08:00 Temp 36.6 36.5 Pulse 86 91 78 Resp 20 21 13 B/P (MAP) 121/82 121/82 105/56 Pulse Ox 94 90 93 95 O2 Delivery Room Air Room Air Room Air Room Air 05/25/21 00:00 Intake Total 1300 ml Output Total 900 ml Balance 400 ml Weight (Pounds): 189 Weight (Ounces): 0.0 Weight (Calculated Kilograms): 85.507231 Constitutional: AAO x 3, well-developed, well-nourished Respiratory: No accessory muscle use, No respiratory distress; chest expansion is symmetric, chest is bilaterally symmetric, other (prolonged exp phase) Cardiovascular: regular rate-rhythm; No JVD; S1 and S2 Gastrointestional: No tender; soft, round, audible bowel sounds Extremities: no lower extremity edema bilateral Neurologic/Psychiatric: grossly intact (moves all extremities) Skin: No rash on exposed areas, No ulcerations on exposed areas Results/Procedures: Labs Laboratory Tests 05/24/21 20:10: Glucometer 148H 05/25/21 06:40: Glucometer 129H Microbiology 05/24/21 MRSA Screen - Final, Complete MRSA not isolated A/P: Assessment: Unstable angina, treated with PCI on 05/24/21 (see below) CAD: - H/o CABG in 2009. -Last [place] on 04/23/20 due to mid-vessel, instent occlusion of RCA, treated with ballon angioplasty and stenting with Xience Radha 2.25x33 stent that was post- dilated to 3 mm kevin (Dr Bartlett). LAD had mild instent restenosis in prox LAD, LCX had patent stent, LVEDP 32 mmHg, preserved LV function, patent SVG to a diag, atretic LOPEZ to LAD. - Last card cath on 05/08/20 (Dr Macias) did not show any change in cor anatomy - MPI of 05-17-21: Inferior wall myocardial infarction with a small amount of ted-infarct ischemia. Inferior wall hypokinesis. Well preserved global left ventricular systolic function with ejection fraction of 54%. - Echo of 04/23/20: LVEF 55-60%, mild dil LA,mild to mod MR, PASP 25-30 mmHg - Last card cath on 05/24/21: patent stents in the L cor system, occluded/atretic LOPEZ to LAD, patent SVG to an OM with 70% ostial stenosis that was successfully stented on 05/24/21 with Radha 2.5 x 18 mm stent (deployed at 20 [place]), midvessel instent occlusion of RCA and 90% proximal instent stenosis of RCA, prox RCA stenosis reduced to 50% with balloon angioplasty, distal RCA occlusion could not be opened up, LVEDP 17 mmHg GI - Mod hiatal hernia seen on CT of chest on 02-03-21 - H/o erosive esophagitis Abnormal ECG - ECG of 05/24/20 shows NSR, old IMI Tobaccoism - cessation advised Hyperlipidemia - being treated with atorvastatin - managed by PCP History of maturity onset diabetes mellitus. - managed by PCP Obesity - with a body mass index of approx 36 Body habitus and daytime somnolence is suggestive of REINA - sleep studies advised Plan: Continue DAPT Continue home medications including BB I have explained to her the cath findings and the interventions undertaken Risk factor mod reviewed Outpt f/u advised Clinical Quality Measures AMI/AHF: ASA po Prior to arrival: Yes JIMENA ROBLES MD FACP FAC CCDS May 25, 2021 15:54
[2021-05-26] MEDS ORDERED: METO-333 PO (10:59)
[2021-05-26] MEDS ORDERED: RT-ALBUINH IH (10:59)
[2021-05-26] MEDS ORDERED: CLOP75TA69 PO (10:59)
== END 2021-05-25 10:02 | disposition home or self-care (01) | DRG 247 ==
LOC: EDUNIT# 17:41 → ER 17:42 → CSD 18:40
PROVIDERS: ADMIT Internal Medicine Cardiovascular Disease; ATTEND Internal Medicine Cardiovascular Disease
PROC: 027034Z Dilation of Coronary Artery, One Artery with Drug-eluting Intraluminal Device, Percutaneous Approach (ICD-10-PCS; principal; 2021-05-24)
PROC: 02703ZZ Dilation of Coronary Artery, One Artery, Percutaneous Approach (ICD-10-PCS; 2021-05-24)
PROC: 4A023N7 Measurement of Cardiac Sampling and Pressure, Left Heart, Percutaneous Approach (ICD-10-PCS; 2021-05-24)
PROC: B2111ZZ Fluoroscopy of Multiple Coronary Arteries using Low Osmolar Contrast (ICD-10-PCS; 2021-05-24)
PROC: B2121ZZ Fluoroscopy of Single Coronary Artery Bypass Graft using Low Osmolar Contrast (ICD-10-PCS; 2021-05-24)
DX: I25.710 Atherosclerosis of autologous vein coronary artery bypass graft(s) with unstable angina pectoris (principal); F17.210 Nicotine dependence, cigarettes, uncomplicated; E11.9 Type 2 diabetes mellitus without complications; E66.9 Obesity, unspecified; G47.33 Obstructive sleep apnea (adult) (pediatric); Z20.822 Contact with and (suspected) exposure to COVID-19; Z95.1 Presence of aortocoronary bypass graft; Z95.5 Presence of coronary angioplasty implant and graft; Z88.2 Allergy status to sulfonamides; Z79.82 Long term (current) use of aspirin; Z79.2 Long term (current) use of antibiotics; Z79.899 Other long term (current) drug therapy; Z68.36 Body mass index [BMI] 36.0-36.9, adult
CPT/HCPCS: 36415; 71045; 80048; 80053; 80061; 82150; 82550; 82553; 82947; 83690; 83735; 83874; 83880; 84484; 84703; 85007; 85025; 85027; 85610; 85730; 87081; 87636; 93005; 93041; 93458

== ENCOUNTER 2021-05-25 20:31 | Observation (INO) | payer MEDICARE, MEDICAID ==
[~2021-05-25] VITALS: Ht 172 cm; Wt 110.4 kg
[~2021-05-25 20:31] MED LIST changes: +NAPR220T66 PO
[2021-05-25] MEDS ORDERED: methylPREDNISolone 125 MG (Solu-MEDROL) VIAL IVP ONE (21:00)
[2021-05-25 21:15] LABS: BASOPHILS % (AUTO) 0 % (0-10); EOSINOPHILS # (AUTO) 0.9 10^3/uL (0.0-0.3); EOSINOPHILS % (AUTO) 8 % (0-10); HEMATOCRIT 40 % (35-52); HEMOGLOBIN 13.8 g/dL (11.5-16.0); LYMPHOCYTES # (AUTO) 0.9 10^3/uL (1.0-4.0); LYMPHOCYTES % (AUTO) 8 % (12-44); MEAN CORPUSCULAR HEMOGLOBIN 34 pg (25-34); MEAN CORPUSCULAR HGB CONC 35 g/dL (32-36); MEAN CORPUSCULAR VOLUME 97 fL (80-99); MEAN PLATELET VOLUME 10.6 fL (9.0-12.2); MONOCYTES # (AUTO) 0.5 10^3/uL (0.0-1.0); MONOCYTES % (AUTO) 5 % (0-12); NEUTROPHILS # (AUTO) 8.1 10^3/uL (1.8-7.8); NEUTROPHILS % (AUTO) 78 % (42-75); PLATELET COUNT 217 10^3/uL (130-400); WHITE BLOOD COUNT 10.4 10^3/uL (4.3-11.0)
[2021-05-25 21:26] LABS: POTASSIUM 4.1 MMOL/L (3.6-5.0)
[2021-05-25 21:27] LABS: CALCIUM 9.4 MG/DL (8.5-10.1); INR 0.9 (0.8-1.4); PROTHROMBIN TIME PATIENT 12.5 SEC (12.2-14.7)
[2021-05-25 21:28] LABS: TOTAL PROTEIN 7.2 GM/DL (6.4-8.2)
[2021-05-25 21:30] LABS: BILIRUBIN,TOTAL 0.9 MG/DL (0.1-1.0)
[2021-05-25 21:32] LABS: CREATININE SERUM 0.9 MG/DL (0.60-1.30)
--- NOTE | 2021-05-25 21:44 | Diagnostic Imaging Report ---
INDICATION: Cough, shortness of air. COMPARISON: 05/23/2021. FINDINGS: Sternal wires are midline. Heart size stable. There is some prominence of the central pulmonary vascularity, similar to the prior. No focal pneumonia or candace edema. No effusion or pneumothorax. IMPRESSION: Stable exam. Upper limits heart size and mild vascular congestion but no candace edema, focal pneumonia or pleural pathology. Dictated by: Dictated on workstation # [id number]
[2021-05-25 22:10] LABS: MAGNESIUM 1.4 MG/DL (1.6-2.4)
[2021-05-25 22:22] LABS: BILIRUBIN,URINE NEGATIVE (NEGATIVE); CLARITY,URINE CLEAR; COLOR,URINE YELLOW; GLUCOSE, URINE (UA) NEGATIVE (NEGATIVE); KETONES,URINE NEGATIVE (NEGATIVE); LEUKOCYTE ESTERASE ,URINE NEGATIVE (NEGATIVE); NITRITE,URINE NEGATIVE (NEGATIVE); PROTEIN,URINE NEGATIVE (NEGATIVE)
[2021-05-25 22:30] LABS: BACTERIA,URINE NEGATIVE /HPF; SQUAMOUS EPITHELIAL CELL,UR RARE /HPF
--- NOTE | 2021-05-25 22:41 | ED General ---
General Chief Complaint: Cough/Cold/Flu Symptoms Stated Complaint: CHILLS / DIARRHEA Nursing Triage Note: PT AMBULATE TO ROOM 07 WITHOUT DIFFICULTY WITH C/O COUGH, GAGGING, AND NOT FEELING WELL SINCE BEING DISCHARGED FROM THIS HOSPITAL TODAY. Source of Information: Patient, Old Records Exam Limitations: No Limitations History of Present Illness Date Seen by Provider: May 25, 2021 Time Seen by Provider: 20:50 Initial Comments This 46-year-old woman presents to the emergency room with complaints of cough, shortness of breath, wheezing, headache, nausea, vomiting, diarrhea, and myalgia. She was discharged from the hospital today after having had angiography and stent placement. She reports not feeling well for the past 2 days been having escalating symptoms since returning home. She does have COPD. She is noted to be hypoxic with an oxygen saturation of 89% on room air. She does not use oxygen supplementation at home. She is afebrile. Allergies and Home Medications Allergies Coded Allergies: Penicillins (Verified Allergy, Unknown, 05/16/21) Sulfa (Sulfonamide Antibiotics) (Verified Allergy, Unknown, 05/16/21) naproxen (Verified Allergy, Unknown, HIVES, NAUSEA--can take ibuprofen, 05/16/21) Patient Home Medication List Home Medication List Reviewed: Yes Aspirin (Aspirin EC) 81 Mg Tablet., 81 MG PO DAILY, (Reported) Entered as Reported by: SONJA OH on 05/24/21958 Atorvastatin Calcium (Atorvastatin Calcium) 40 Mg Tablet, 40 MG PO DAILY, (Reported) Entered as Reported by: SONJA OH on 05/24/21958 Clopidogrel Bisulfate (Clopidogrel) 75 Mg Tablet, 75 MG PO DAILY Prescribed by: DAVID ERNST on 05/25/21921 Metoprolol Tartrate (Metoprolol Tartrate) 25 Mg Tablet, 12.5 MG PO BID Prescribed by: DAVID ERNST on 05/25/21921 Discontinued Medications Aspirin (Aspirin EC) 81 Mg Tablet., 81 MG PO DAILY Discontinued Reason: No Longer Taking Prescribed by: RAINE HERNANDEZ on 05/17/211523 Atorvastatin Calcium (Lipitor) 40 Mg Tablet, 40 MG PO HS Discontinued Reason: No Longer Taking Prescribed by: RAINE HERNANDEZ on 05/17/211523 Isosorbide Mononitrate (Isosorbide Mononitrate ER) 30 Mg Tab.er.24h, 30 MG PO DAILY Discontinued Reason: No Longer Taking Prescribed by: RAINE HERNANDEZ on 05/17/21 1526 Isosorbide Mononitrate (Isosorbide Mononitrate ER) 30 Mg Tab.er.24h, 30 MG PO DAILY, (Reported) Entered as Reported by: SONJA OH on 05/24/21 0959 Naproxen Sodium (Aleve) 220 Mg Tablet, 220-440 MG PO BID PRN for PAIN-MILD (1- 4), (Reported) Entered as Reported by: SONJA OH on 05/24/21 0959 Nitrofurantoin Monohyd/M-Cryst (Nitrofurantoin Dimmit-Mcr 100 mg) 100 Mg Capsule, 100 MG PO BID WITH MEALS Discontinued Reason: No Longer Taking Prescribed by: RAINE HERNANDEZ on 05/17/21 1524 Review of Systems Review of Systems Constitutional: no symptoms reported EENTM: no symptoms reported Respiratory: see HPI Cardiovascular: see HPI Gastrointestinal: see HPI Genitourinary: no symptoms reported : No Musculoskeletal: see HPI Skin: no symptoms reported Psychiatric/Neurological: See HPI Hematologic/Lymphatic: No Symptoms Reported Past Xrnmxcr-Ydiwzj-Nkbuic Hx Patient Social History Tobacco Use?: No Smoking Status: Never a Smoker Smokeless Tobacco Frequency: Never a User Use of E-Cig and/or Vaping Pierre: Never a User Substance use?: No Alcohol Use?: No Pt feels they are or have been: No Immunizations Up To Date Tetanus Booster (TDap): More than 5yrs Seasonal Allergies Seasonal Allergies: No Past Medical History Surgery/Hospitalization HX: CABG 2009 CARDIAC CATHS--MULTIPLE STENTS TO RCA AND ANOTHER STENT TO RCA 04/23/20, STENT TO CIRCUMFLEX; -CATH 04/23/[address] POMPA: FINDINGS: 1.Left main: patent. 2.LAD: mild in-stent restenosis in the proximal LAD. No distal disease. 3.Left circumflex artery: patent stent. No significant disease. 4.RCA: occluded mid RCA stent. 5.Left heart catheterization: LV pressure 94/9 mmHg. LVEDP 32 mmHg. Aortic pressure 86/61 mmHg. No gradient across the aortic valve. Inferior hypokinesis. Preserved LV systolic function. 6. Saphenous vein graft angiography: Patent saphenous vein graft to a diagonal artery. 7. LOPEZ angiography: Atretic LOPEZ. 8. Aortic arch angiogram: No evidence of dissection or aneurysm. One saphenous vein graft is noted. Patent proximal segments of the great arteries. LAST CARDIAC CATH 05/08/20 : ANATOMY: Left Main is free of obstructive disease Left Anterior Descending has mild to moderate disease nonobstructive disease, vein graft to diagonal artery is patent, 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 Patent stents in the right coronary artery was small vessel disease distally 2. 50 percent proximal stenosis in the vein graft to the diagonal artery, small vessel disease distally 3. Mild to moderate disease in the left coronary system, nonobstructive disease 4. Elevated left ventricular end-diastolic pressure DISCUSSION AND RECOMMENDATION: Coronary anatomy has not changed significantly compared to the study of April 24, 2020. Elevated troponin is probably due to small vessel disease, conservative management is recommended -CARDIAC CATH 05/08/[address] ARGUELLES: CONCLUSION: 1. Patent stents in the right coronary artery was small vessel disease distally 2. 50 percent proximal stenosis in the vein graft to the diagonal artery, small vessel disease distally 3. Mild to moderate disease in the left coronary system, nonobstructive disease 4. Elevated left ventricular end-diastolic pressure FABRICE FUNDOPLICATION CHOLECYSTECTOMY TONSILLECTOMY/ADENOIDECTOMY TRACHEOSTOMY 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) Sexually Transmitted Disease: Yes (HERPES) Genitourinary: No Gastrointestinal: Yes (S/P FABRICE FUNDOPLICATION) Gastroesophageal Reflux, Esophagitis, Hiatal Hernia, Gall Bladder Disease Musculoskeletal: Yes Arthritis Endocrine: Yes Hypothyroidsim, Diabetes, Non-Insulin dep HEENT: Yes Chronic Ear Infection Hearing Impairment: Hard of Hearing Cancer: Yes Cervical Did You Recieve Any Treatments: Yes What Type of Treatment Did You: Surgical Intervention Psychosocial: Yes Sleep Difficulties, Anxiety, Suicide Attempts, Depression Integumentary: No Blood Disorders: No Adverse Reaction/Blood Tranf: No Family Medical History ADDITIONAL PAST MEDICAL AND PROCEDURAL HISTORY: -PT HAD NSTEMI AND WAS ADMITTED 04/22/20-04/24/20, HAD CARDIAC CATH 04/23/20 AND HAD STENT X 1 TO RCA -PT HAS PREVIOUSLY HAD A CABG IN 2009, MULTIPLE STENTS TO RCA, AND STENT TO CIRCUMFLEX IN THE PAST. -CARDIAC CATH 05/08/[address] 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 Patent stents in the right coronary artery was small vessel disease distally 2. 50 percent proximal stenosis in the vein graft to the diagonal artery, small vessel disease distally 3. Mild to moderate disease in the left coronary system, nonobstructive disease 4. Elevated left ventricular end-diastolic pressure DISCUSSION AND RECOMMENDATION: Coronary anatomy has not changed significantly compared to the study of April 24, 2020. Elevated troponin is probably due to small vessel disease, conservative management is recommended Physical Exam Vital Signs Vital Signs - First Documented 05/25/21 20:50 Temp 37.2 Pulse 115 Resp 17 B/P (MAP) 151/105 (120) O2 Delivery Room Air Capillary Refill : Less Than 3 Seconds Height, Weight, BMI Height: 5'8.00" Weight: 189lbs. 0.0oz. 85.290278wn; 34.00 BMI Method:Stated General Appearance: WD/WN, Mild Distress HEENT: PERRL/EOMI, Normal ENT Inspection Neck: Normal Inspection; No JVD Respiratory: Accessory Muscle Use, Wheezing Cardiovascular: No Edema, No Murmur, Tachycardia Gastrointestinal: Non Tender, Soft Extremity: Normal Inspection, Non Tender, No Pedal Edema Neurologic/Psychiatric: Alert, Oriented x3, No Motor/Sensory Deficits, Normal Mood/Affect, drug abuse social worker II-XII Norm as Tested Skin: Normal Color, Warm/Dry Focused Exam Lactate Level 05/25/21 21:00: Lactic Acid Level 1.63 Lactic Acid Level Laboratory Tests Test 05/25/21 21:00 Lactic Acid Level 1.63 MMOL/L (0.50-2.00) Progress/Results/Core Measures Suspected Sepsis SIRS Temperature: Pulse: 115 Respiratory Rate: 17 Laboratory Tests 05/25/21 21:00: White Blood Count 10.4 Blood Pressure 151 /105 Mean: 120 05/25/21 21:00: Lactic Acid Level 1.63 Laboratory Tests 05/25/21 21:00: Creatinine 0.90, INR Comment 0.9, Platelet Count 217, Total Bilirubin 0.9 Results/Orders Lab Results Laboratory Tests Test 05/25/21 20:25 05/25/21 21:00 05/25/21 21:17 05/25/21 21:20 Range/Units SARS-CoV-2 RNA (RT-PCR) Not Detected Not Detecte White Blood Count 10.4 4.3-11.0 10^3/uL Red Blood Count 4.10 3.80-5.11 10^6/uL Hemoglobin 13.8 11.5-16.0 g/dL Hematocrit 40 35-52 % Mean Corpuscular Volume 97 80-99 fL Mean Corpuscular Hemoglobin 34 25-34 pg Mean Corpuscular Hemoglobin Concent 35 32-36 g/dL Red Cell Distribution Width 12.7 10.0-14.5 % Platelet Count 217 130-400 10^3/uL Mean Platelet Volume 10.6 9.0-12.2 fL Immature Granulocyte % (Auto) 1 % Neutrophils (%) (Auto) 78 H 42-75 % Lymphocytes (%) (Auto) 8 L 12-44 % Monocytes (%) (Auto) 5 0-12 % Eosinophils (%) (Auto) 8 0-10 % Basophils (%) (Auto) 0 0-10 % Neutrophils # (Auto) 8.1 H 1.8-7.8 10^3/uL Lymphocytes # (Auto) 0.9 L 1.0-4.0 10^3/uL Monocytes # (Auto) 0.5 0.0-1.0 10^3/uL Eosinophils # (Auto) 0.9 H 0.0-0.3 10^3/uL Basophils # (Auto) 0.0 0.0-0.1 10^3/uL Immature Granulocyte # (Auto) 0.1 0.0-0.1 10^3/uL Prothrombin Time 12.5 12.2-14.7 SEC INR Comment 0.9 0.8-1.4 Activated Partial Thromboplast Time 32 24-35 SEC Sodium Level 138 135-145 MMOL/L Potassium Level 4.1 3.6-5.0 MMOL/L Chloride Level 105 98-107 MMOL/L Carbon Dioxide Level 22 21-32 MMOL/L Anion Gap 11 5-14 MMOL/L Blood Urea Nitrogen 7 7-18 MG/DL Creatinine 0.90 0.60-1.30 MG/DL Estimat Glomerular Filtration Rate 67 BUN/Creatinine Ratio 8 Glucose Level 166 H 70-105 MG/DL Lactic Acid Level 1.63 0.50-2.00 MMOL/L Calcium Level 9.4 8.5-10.1 MG/DL Corrected Calcium 9.4 8.5-10.1 MG/DL Total Bilirubin 0.9 0.1-1.0 MG/DL Aspartate Amino Transf (AST/SGOT) 18 5-34 U/L Alanine Aminotransferase (ALT/SGPT) 21 0-55 U/L Alkaline Phosphatase 164 H 40-136 U/L C-Reactive Protein High Sensitivity 1.26 H 0.00-0.50 MG/DL B-Type Natriuretic Peptide 173.6 H <100.0 PG/ML Total Protein 7.2 6.4-8.2 GM/DL Albumin 4.0 3.2-4.5 GM/DL Procalcitonin 0.05 <0.10 NG/ML Magnesium Level 1.4 L 1.6-2.4 MG/DL Troponin I 0.076 H <0.028 NG/ML Influenza Type A (RT-PCR) Not Detected Not Detecte Influenza Type B (RT-PCR) Not Detected Not Detecte Test 05/25/21 22:08 Range/Units Urine Color YELLOW Urine Clarity CLEAR Urine pH 6.0 5-9 Urine Specific Fletcher 1.010 L 1.016-1.022 Urine Protein NEGATIVE NEGATIVE Urine Glucose (UA) NEGATIVE NEGATIVE Urine Ketones NEGATIVE NEGATIVE Urine Nitrite NEGATIVE NEGATIVE Urine Bilirubin NEGATIVE NEGATIVE Urine Urobilinogen 1.0 < = 1.0 MG/DL Urine Leukocyte Esterase NEGATIVE NEGATIVE Urine RBC (Auto) NEGATIVE NEGATIVE Urine RBC NONE /HPF Urine WBC NONE /HPF Urine Squamous Epithelial Cells RARE /HPF Urine Crystals NONE /LPF Urine Bacteria NEGATIVE /HPF Urine Casts NONE /LPF Urine Mucus NEGATIVE /LPF Urine Culture Indicated NO My Orders Orders - DORA ROMERO MD Cbc With Automated Diff (05/25/21 20:58) Comprehensive Metabolic Panel (05/25/21 20:58) Blood Culture (05/25/21 20:58) Sputum Culture (05/25/21 20:58) Urinalysis (05/25/21 20:58) Urine Culture (05/25/21 20:58) Protime With Inr (05/25/21 20:58) Partial Thromboplastin Time (05/25/21 20:58) Chest 1 View, Ap/Pa Only (05/25/21 20:58) Ed Iv/Invasive Line Start (05/25/21 20:58) Ed Iv/Invasive Line Start (05/25/21 20:58) Vital Signs Adult Sepsis Patie Q15M (05/25/21 20:58) O2 (05/25/21 20:58) Remove Rings In Anticipation O (05/25/21 20:58) Lactic Acid Analyzer (05/25/21 20:58) BNP (05/25/21 20:58) Hs C Reactive Protein (05/25/21 20:58) Covid 19 Inhouse Test (05/25/21 20:58) Methylprednisolone Sod Succ (Solu-Medrol (05/25/21 21:00) Procalcitonin (Pct) (05/25/21 21:00) Influenza A And B By Pcr (05/25/21 21:34) Magnesium (05/25/21 21:38) Troponin I (05/25/21 21:38) Ekg Tracing (05/25/21 21:38) Monitor-Rhythm Ecg Trace Only (05/25/21 21:38) Magnesium 1 Gm/100 Ml Ivpb (Magnesium Villarreal (05/25/21 22:45) Medications Given in ED Current Medications Medications Dose Ordered Sig/Sara Route Start Time Stop Time Status Last Admin Dose Admin Methylprednisolone Sodium Succinate 125 mg ONCE ONCE IVP 05/25/21 21:00 05/25/21 21:01 DC 05/25/21 21:11 125 MG Vital Signs/I&O 05/25/21 05/25/21 20:50 20:52 Temp 37.2 Pulse 115 Resp 17 B/P (MAP) 151/105 (120) O2 Delivery Room Air Room Air Capillary Refill : Less Than 3 Seconds Blood Pressure Mean: 120 Progress Note : Progress Note Patient responded well to oxygen supplementation, Solu-Medrol, and respiratory treatment. Magnesium was low and a gram of magnesium was administered by IV route. Since patient presented with hypoxia associated with this COPD exacerbation and she does not normally use oxygen at home, admission was determined to be most appropriate. ECG Initial ECG Impression Date: May 25, 2021 Initial ECG Impression Time: 22:12 Initial ECG Rate: 104 Initial ECG Rhythm: S.Tach Comment Sinus tachycardia with no ST elevation or depression. No abnormal intervals or axis deviation. Diagnostic Imaging Diagonstic Imaging: Xray Plain Films/CT/US/NM/MRI: chest Comments Chest x-ray viewed by me and report reviewed. See report below: NAME: WAN DA SILVA [facility] REC#: [id number] PT STATUS: REG ER : 1975 PHYSICIAN: DORA ROMERO MD ADMIT DATE: 05/25/21/ER Signed Date of Exam:05/25/21 CHEST 1 VIEW, AP/PA ONLY INDICATION: Cough, shortness of air. COMPARISON: 05/23/2021. FINDINGS: Sternal wires are midline. Heart size stable. There is some prominence of the central pulmonary vascularity, similar to the prior. No focal pneumonia or candace edema. No effusion or pneumothorax. IMPRESSION: Stable exam. Upper limits heart size and mild vascular congestion but no candace edema, focal pneumonia or pleural pathology. Dictated by: Dictated on workstation # [id number] Dict: 05/25/212120 Trans: 05/25/212142 [facility] [id number] Interpreted by: KURTIS HESTER Electronically signed by: KURTIS HESTER 05/25/212142 Departure Communication (Admissions) Time/Spoke to Admitting Phy: 22:30 Dr. Garcia Time/Spoke to Consulting Phy: 22:32 Dr. Aguilar Impression Primary Impression: COPD exacerbation Additional Impressions: Nausea vomiting and diarrhea Hypoxia Flu-like symptoms Disposition: ADMITTED INPATIENT Condition: Improved Admissions Decision to Admit Reason: Admit from ER (General) Decision to Admit/Date: May 25, 2021 Time/Decision to Admit Time: 21:00 Departure-Patient Inst. Referrals: EDWAR LOBO DO (PCP/Family) Primary Care Physician DORA ROMERO MD May 25, 2021 22:41
[2021-05-25] MEDS ORDERED: MAGNESIUM 1 GM/100 ML IVPB 100 ML IV ONE (22:45)
[2021-05-25 23:26] VITALS: BP 128/74
[2021-05-25] MEDS ORDERED: LACTATED RINGERS 1,000 ML IV ONE (23:30)
[2021-05-25] MEDS ORDERED: ONDANSETRON 4 MG/2 ML (SDV) Z0FRAN ONE (23:30)
[2021-05-25 23:58] VITALS: BP 151/105
[2021-05-26] MEDS ORDERED: RT-ALBUTEROL/IPRATROPIUM 3 ML (DUONEB) VIAL INH PRN (00:15)
[2021-05-26] MEDS ORDERED: LACTATED RINGERS 1,000 ML IV SCH (02:15)
[2021-05-26 04:00] VITALS: BP 121/70
[2021-05-26] MEDS: methylPREDNISolone 40 MG/ML (Solu-MEDROL) VIAL IV SCH ×4 (05:15→23:13)
[2021-05-26] MEDS: ONDANSETRON 4 MG/2 ML (SDV) Z0FRAN IVP PRN ×2 (05:22)
[2021-05-26 05:27] LABS: BASOPHILS % (AUTO) 0 % (0-10); EOSINOPHILS # (AUTO) 0.2 10^3/uL (0.0-0.3); EOSINOPHILS % (AUTO) 1 % (0-10); HEMATOCRIT 37 % (35-52); HEMOGLOBIN 12.5 g/dL (11.5-16.0); LYMPHOCYTES # (AUTO) 0.7 10^3/uL (1.0-4.0); LYMPHOCYTES % (AUTO) 6 % (12-44); MEAN CORPUSCULAR HEMOGLOBIN 33 pg (25-34); MEAN CORPUSCULAR HGB CONC 34 g/dL (32-36); MEAN CORPUSCULAR VOLUME 96 fL (80-99); MEAN PLATELET VOLUME 10.6 fL (9.0-12.2); MONOCYTES # (AUTO) 0.1 10^3/uL (0.0-1.0); MONOCYTES % (AUTO) 1 % (0-12); NEUTROPHILS # (AUTO) 11.4 10^3/uL (1.8-7.8); NEUTROPHILS % (AUTO) 92 % (42-75); PLATELET COUNT 217 10^3/uL (130-400); WHITE BLOOD COUNT 12.4 10^3/uL (4.3-11.0)
[2021-05-26 05:51] LABS: POTASSIUM 3.9 MMOL/L (3.6-5.0)
[2021-05-26 05:56] LABS: CREATININE SERUM 0.77 MG/DL (0.60-1.30)
[2021-05-26] MEDS: inSUlin ASPART (NovoLOG) 1 UNIT/0.01 ML (CHARGE PER UNIT) SC SCH ×4 (06:01→20:53)
[2021-05-26] MEDS: RT-ALBUTEROL/IPRATROPIUM 3 ML (DUONEB) VIAL INH SCH ×2 (07:16→21:54)
[2021-05-26] MEDS ORDERED: FLU QUADRIvalent (3YOA+) 60 mcg/0.5 ml 2021-22(AFLURIA) IM ONE (07:30)
[2021-05-26 07:56] VITALS: BP 115/58
--- NOTE | 2021-05-26 08:04 | Consultation-Cardiology ---
HPI-Cardiology Cardiology Consultation: Date of Consultation 05/26/21 Time Seen by a Provider: 08:10 Date of Admission 05-25-21 Attending Physician Wilder Garcia MD Admitting Physician Willem Chamorro DO Consulting Physician Karie Aguilar MD HPI: Chief Complaint: SOB Ms. Da Silva is a 46 yr old female who has been admitted to 418 from the ED with progressive SOB. She reports she went home yesterday and was feeling good. She reports around 5 p.m. last night and she began to have increasing SOB and cough. No productive cough. She reports she could not catch her breath and was found to have low oxygen sats in the ED. She denies any c/o CP, palpitations, syncope, near syncope or LE swelling. No c/o right groin discomfort. She reports her breathing us much better today. Review of Systems-Cardiology Review of Systems Constitutional: chills; No fever; malaise Eyes: No vision change Ears/Nose/Throat: No epistaxis, No recent hearing loss Respiratory: As described under HPI Cardiovascular: As described under HPI Gastrointestinal: No constipation, No diarrhea, No nausea, No vomiting Genitourinary: No dysuria, No hematuria : No Musculoskeletal: back pain Skin: No rash on exposed areas, No ulcerations on exposed areas Psychiatric/Neurological: anxiety; No depression, No seizure, No focal weakness, No syncope Hematologic: No bleeding abnormalities LDJ-Cgayze-Roisjl Hx Patient Social History Smoking Status: Former Smoker 2nd Hand Smoke Exposure: No Have you traveled recently?: No Alcohol Use?: No Pt feels they are or have been: No Immunizations Up To Date Tetanus Booster (TDap): More than 5yrs Date of Pneumonia Vaccine: Jun 20, 2013 Date of Influenza Vaccine: May 24, 2020 Past Medical History PMH As described under Assessment. Family Medical History Family Medical History: Has family h/o of early CAD Allergies and Home Medications Allergies Coded Allergies: Penicillins (Verified Allergy, Unknown, 05/16/21) Sulfa (Sulfonamide Antibiotics) (Verified Allergy, Unknown, 05/16/21) naproxen (Verified Allergy, Unknown, HIVES, NAUSEA--can take ibuprofen, 05/16/21) Patient Home Medication List Albuterol Sulfate (Proair Hfa) 1 Puff Puff, 2 PUFF IH Q4H PRN for SHORTNESS OF BREATH, (Reported) Entered as Reported by: SONJA OH on 05/26/211058 Last Action: Reviewed Aspirin (Aspirin EC) 81 Mg Tablet.dr, 81 MG PO DAILY, (Reported) Entered as Reported by: SONJA OH on 05/24/21958 Last Action: Reviewed Atorvastatin Calcium (Atorvastatin Calcium) 40 Mg Tablet, 40 MG PO DAILY, (Reported) Entered as Reported by: SONJA OH on 05/24/21958 Last Action: Continued Clopidogrel Bisulfate (Plavix) 75 Mg Tablet, 75 MG PO DAILY, (Reported) Entered as Reported by: SONJA OH on 05/26/211058 Last Action: Reviewed Metoprolol Tartrate (Metoprolol Tartrate) 25 Mg Tablet, 12.5 MG PO BID, (Reported) Entered as Reported by: SONJA OH on 05/26/211058 Last Action: Continued Discontinued Medications Aspirin (Aspirin EC) 81 Mg Tablet., 81 MG PO DAILY Discontinued Reason: No Longer Taking Prescribed by: RAINE HERNANDEZ on 05/17/21 152 Atorvastatin Calcium (Lipitor) 40 Mg Tablet, 40 MG PO HS Discontinued Reason: No Longer Taking Prescribed by: RAINE HERNANDEZ on 05/17/21 152 Clopidogrel Bisulfate (Clopidogrel) 75 Mg Tablet, 75 MG PO DAILY Discontinued Reason: Duplicate Order Prescribed by: DAVID ERNST on 05/25/21921 Last Action: Discontinued Isosorbide Mononitrate (Isosorbide Mononitrate ER) 30 Mg Tab.er.24h, 30 MG PO D AILY Discontinued Reason: No Longer Taking Prescribed by: RAINE HERNANDEZ on 05/17/21 152 Isosorbide Mononitrate (Isosorbide Mononitrate ER) 30 Mg Tab.er.24h, 30 MG PO DAILY, (Reported) Entered as Reported by: SONJA OH on 05/24/21958 Metoprolol Tartrate (Metoprolol Tartrate) 25 Mg Tablet, 12.5 MG PO BID Discontinued Reason: No Longer Taking Prescribed by: DAVID ERNST on 05/25/21921 Last Action: Discontinued Naproxen Sodium (Aleve) 220 Mg Tablet, 220-440 MG PO BID PRN for PAIN-MILD (1- 4), (Reported) Entered as Reported by: SONJA OH on 05/24/2159 Nitrofurantoin Monohyd/M-Cryst (Nitrofurantoin Wilkinson-Mcr 100 mg) 100 Mg Capsule, 100 MG PO BID WITH MEALS Discontinued Reason: No Longer Taking Prescribed by: RAINE HERNANDEZ on 05/17/21 1524 Physical Exam-Cardiology Physical Exam Vital Signs/I&O 05/26/21 05/26/21 05/26/21 05/26/21 04:54 07:17 07:56 08:00 Temp 35.4 Pulse 80 Resp 18 B/P (MAP) 115/58 (77) Pulse Ox 93 92 O2 Delivery Nasal Cannula Nasal Cannula Nasal Cannula Nasal Cannula O2 Flow Rate 2.00 3.00 2.00 2.00 05/26/21 05/26/21 05/26/21 05/26/21 11:45 13:21 13:33 15:31 Temp 36.0 35.0 Pulse 82 95 85 Resp 20 22 B/P (MAP) 110/53 (72) 109/71 (84) Pulse Ox 95 94 95 O2 Delivery Nasal Cannula Nasal Cannula Room Air O2 Flow Rate 2.00 3.00 Capillary Refill : Less Than 3 Seconds Constitutional: AAO x 3, well-developed, well-nourished HEENT: PERRL, hearing is well preserved, oral hygience is good Neck: No carotid bruit; carotid pulses are 2 + bilaterally Respiratory: No accessory muscle use, No respiratory distress; chest expansion is symmetric, chest is bilaterally symmetric, rhonchi (scattered rhonchi throughout with prolonged exp phase) Cardiovascular: regular rate-rhythm; No JVD; S1 and S2 Gastrointestinal: No tender; soft, round, audible bowel sounds Extremities: no lower extremity edema bilateral Neurologic/Psychiatric: grossly intact (moves all extremities) Skin: No rash on exposed areas, No ulcerations on exposed areas; other (dressing to right groin in place; dressing D&I; no bruising at the site; RUQ large area of ecchymosis) Data Review Labs Laboratory Tests 05/25/21 20:25: SARS-CoV-2 RNA (RT-PCR) Not Detected 05/25/21 21:00: White Blood Count 10.4, Red Blood Count 4.10, Hemoglobin 13.8, Hematocrit 40, Mean Corpuscular Volume 97, Mean Corpuscular Hemoglobin 34, Mean Corpuscular Hemoglobin Concent 35, Red Cell Distribution Width 12.7, Platelet Count 217, Mean Platelet Volume 10.6, Immature Granulocyte % (Auto) 1, Neutrophils (%) (Auto) 78H, Lymphocytes (%) (Auto) 8L, Monocytes (%) (Auto) 5, Eosinophils (%) (Auto) 8, Basophils (%) (Auto) 0, Neutrophils # (Auto) 8.1H, Lymphocytes # (Auto) 0.9L, Monocytes # (Auto) 0.5, Eosinophils # (Auto) 0.9H, Basophils # (Auto) 0.0, Immature Granulocyte # (Auto) 0.1, Prothrombin Time 12.5, INR Comment 0.9, Activated Partial Thromboplast Time 32, Sodium Level 138, Potassium Level 4.1, Chloride Level 105, Carbon Dioxide Level 22, Anion Gap 11, Blood Urea Nitrogen 7, Creatinine 0.90, Estimat Glomerular Filtration Rate 67, BUN/Creatinine Ratio 8, Glucose Level 166H, Lactic Acid Level 1.63, Calcium Level 9.4, Corrected Calcium 9.4, Total Bilirubin 0.9, Aspartate Amino Transf (AST/SGOT) 18, Alanine Aminotransferase (ALT/SGPT) 21, Alkaline Phosphatase 164H , C-Reactive Protein High Sensitivity 1.26H, B-Type Natriuretic Peptide 173.6H, Total Protein 7.2, Albumin 4.0, Procalcitonin 0.05 05/25/21 21:17: Magnesium Level 1.4L, Troponin I 0.076H 05/25/21 21:20: Influenza Type A (RT-PCR) Not Detected, Influenza Type B (RT-PCR) Not Detected 05/25/21 22:08: Urine Color YELLOW, Urine Clarity CLEAR, Urine pH 6.0, Urine Specific [place] 1.010L, Urine Protein NEGATIVE, Urine Glucose (UA) NEGATIVE, Urine Ketones NEGATIVE, Urine Nitrite NEGATIVE, Urine Bilirubin NEGATIVE, Urine Urobilinogen 1.0, Urine Leukocyte Esterase NEGATIVE, Urine RBC (Auto) NEGATIVE, Urine RBC NONE, Urine WBC NONE, Urine Squamous Epithelial Cells RARE, Urine Crystals NONE, Urine Bacteria NEGATIVE, Urine Casts NONE, Urine Mucus NEGATIVE, Urine Culture Indicated NO 05/26/21 05:15: White Blood Count 12.4H, Red Blood Count 3.82, Hemoglobin 12.5, Hematocrit 37, Mean Corpuscular Volume 96, Mean Corpuscular Hemoglobin 33, Mean Corpuscular Hemoglobin Concent 34, Red Cell Distribution Width 12.6, Platelet Count 217, Ignacia n Platelet Volume 10.6, Immature Granulocyte % (Auto) 0, Neutrophils (%) (Auto) 92H, Lymphocytes (%) (Auto) 6L, Monocytes (%) (Auto) 1, Eosinophils (%) (Auto) 1, Basophils (%) (Auto) 0, Neutrophils # (Auto) 11.4H, Lymphocytes # (Auto) 0.7L , Monocytes # (Auto) 0.1, Eosinophils # (Auto) 0.2, Basophils # (Auto) 0.0, Immature Granulocyte # (Auto) 0.0, Sodium Level 135, Potassium Level 3.9, Chloride Level 106, Carbon Dioxide Level 19L, Anion Gap 10, Blood Urea Nitrogen 7, Creatinine 0.77, Estimat Glomerular Filtration Rate 80, BUN/Creatinine Ratio 9, Glucose Level 275H, Calcium Level 9.0 05/26/21 08:49: Glucometer 261H 05/26/21 10:22: Glucometer 244H 05/26/21 15:35: Glucometer 284H Microbiology 05/25/21 Blood Culture - Preliminary, Resulted No growth Radiology NAME: WAN DA SILVA [facility] REC#: [id number] PT STATUS: REG ER : 1975 PHYSICIAN: DORA ROMERO MD ADMIT DATE: 05/25/21/ER Signed Date of Exam:05/25/21 CHEST 1 VIEW, AP/PA ONLY INDICATION: Cough, shortness of air. COMPARISON: 05/23/2021. FINDINGS: Sternal wires are midline. Heart size stable. There is some prominence of the central pulmonary vascularity, similar to the prior. No focal pneumonia or candace edema. No effusion or pneumothorax. IMPRESSION: Stable exam. Upper limits heart size and mild vascular congestion but no candace edema, focal pneumonia or pleural pathology. Dictated by: Dictated on workstation # [id number] Dict: 05/25/212120 Trans: 05/25/212142 PJE [id number] Interpreted by: KURTIS HESTER Electronically signed by: KURTIS HESTER 05/25/212142 ECG Impression ECG Initial ECG Rhythm: Normal Sinus A/P-Cardiology Assessment/Admission Diagnosis Acute on chronic exacerbation of COPD - management per medical services Minimal troponin elevation likely secondary to transient hypoxia CAD: - H/o CABG in 2009. -Last CO on 04/23/20 due to mid-vessel, instent occlusion of RCA, treated with ballon angioplasty and stenting with Xience Radha 2.25x33 stent that was post- dilated to 3 mm kevin (Dr Bartlett). LAD had mild instent restenosis in prox LAD, LCX had patent stent, LVEDP 32 mmHg, preserved LV function, patent SVG to a diag, atretic LOPEZ to LAD. - Last card cath on 05/08/20 (Dr Macias) did not show any change in cor anatomy - MPI of 05-17-21: Inferior wall myocardial infarction with a small amount of ted-infarct ischemia. Inferior wall hypokinesis. Well preserved global left ventricular systolic function with ejection fraction of 54%. - Echo of 04/23/20: LVEF 55-60%, mild dil LA,mild to mod MR, PASP 25-30 mmHg - Last card cath on 05/24/21: patent stents in the L cor system, occluded/atretic LOPEZ to LAD, patent SVG to an OM with 70% ostial stenosis that was successfully stented on 05/24/21 with Radha 2.5 x 18 mm stent (deployed at 20 [address]), midvessel instent occlusion of RCA and 90% proximal instent stenosis of RCA, prox RCA stenosis reduced to 50% with balloon angioplasty, distal RCA occlusion could not be opened up, LVEDP 17 mmHg GI - Mod hiatal hernia seen on CT of chest on 02-03-21 - H/o erosive esophagitis Abnormal ECG - ECG of 05/24/20 shows NSR, old IMI Tobaccoism - cessation advised Hyperlipidemia - being treated with atorvastatin - managed by PCP History of maturity onset diabetes mellitus. - managed by PCP Obesity - with a body mass index of approx 36 Body habitus and daytime somnolence is suggestive of REINA - sleep studies advised Discussion and Recomendations Acute on chronic exacerbation of COPD - management per medical services Continue current medications including DAPT d/t recent coronary stent placement Mildly elevated troponin likely Type 2 CO secondary to hypoxia Monitor lab closely Replace electrolytes as indicated We would like to thank medical services for this consult DAVID ERNST May 26, 2021 08:04
[2021-05-26] MEDS: CLOPIDOGREL 75 MG (PLAVIX) TABLET PO SCH (08:16)
[2021-05-26] MEDS: ASPIRIN E.C. 81 MG (ECOTRIN) TAB PO SCH (08:16)
[2021-05-26] MEDS: MAGNESIUM OXIDE (MAG-OX)400 MG TAB PO SCH ×2 (08:16→18:41)
--- NOTE | 2021-05-26 10:34 | Consultation-Cardiology ---
HPI-Cardiology Cardiology Consultation: Date of Consultation 05/26/21 Time Seen by a Provider: 09:15 Date of Admission Attending Physician Wilder Garcia MD Admitting Physician Willem Chamoror DO Consulting Physician JIMENA ROBLES MD, MA, FACP, FACC, FSCAI, CCDS HPI: Chief Complaint: SOB Ms. Champagne is a 46 yr old female who has been admitted to [facility] from the ED with progressive SOB. She reports she went home yesterday and was feeling good. She reports around 5 p.m. last night and she began to have increasing SOB and cough. No productive cough. She reports she could not catch her breath and was found to have low oxygen sats in the ED. She denies any c/o CP, palpitations, syncope, near syncope or LE swelling. No c/o right groin discomfort. She reports her breathing us much better today. Review of Systems-Cardiology Review of Systems Constitutional: chills; No fever; malaise Eyes: No vision change Ears/Nose/Throat: No epistaxis, No recent hearing loss Respiratory: As described under HPI Cardiovascular: As described under HPI Gastrointestinal: No constipation, No diarrhea, No nausea, No vomiting Genitourinary: No dysuria, No hematuria : No Musculoskeletal: back pain Skin: No rash on exposed areas, No ulcerations on exposed areas Psychiatric/Neurological: anxiety; No depression, No seizure, No focal weakness, No syncope Hematologic: No bleeding abnormalities QLD-Tkznph-Khesbg Hx Patient Social History Smoking Status: Former Smoker 2nd Hand Smoke Exposure: No Have you traveled recently?: No Alcohol Use?: No Pt feels they are or have been: No Immunizations Up To Date Tetanus Booster (TDap): More than 5yrs Date of Pneumonia Vaccine: Jun 20, 2013 Date of Influenza Vaccine: May 24, 2020 Past Medical History PMH As described under Assessment. Family Medical History Family Medical History: Has family h/o of early CAD Allergies and Home Medications Allergies Coded Allergies: Penicillins (Verified Allergy, Unknown, 05/16/21) Sulfa (Sulfonamide Antibiotics) (Verified Allergy, Unknown, 05/16/21) naproxen (Verified Allergy, Unknown, HIVES, NAUSEA--can take ibuprofen, 05/16/21) Patient Home Medication List Home Medication List Reviewed: Yes Aspirin (Aspirin EC) 81 Mg Tablet., 81 MG PO DAILY, (Reported) Entered as Reported by: SONJA OH on 05/24/21958 Atorvastatin Calcium (Atorvastatin Calcium) 40 Mg Tablet, 40 MG PO DAILY, (Reported) Entered as Reported by: SONJA OH on 05/24/21958 Clopidogrel Bisulfate (Clopidogrel) 75 Mg Tablet, 75 MG PO DAILY Prescribed by: DAVID ERNST on 05/25/21921 Metoprolol Tartrate (Metoprolol Tartrate) 25 Mg Tablet, 12.5 MG PO BID Prescribed by: DAVID ERNST on 05/25/21921 Discontinued Medications Aspirin (Aspirin EC) 81 Mg Tablet.dr, 81 MG PO DAILY Discontinued Reason: No Longer Taking Prescribed by: RAINE HERNANDEZ on 05/17/211523 Atorvastatin Calcium (Lipitor) 40 Mg Tablet, 40 MG PO HS Discontinued Reason: No Longer Taking Prescribed by: RAINE HERNANDEZ on 05/17/21 152 Isosorbide Mononitrate (Isosorbide Mononitrate ER) 30 Mg Tab.er.24h, 30 MG PO DAILY Discontinued Reason: No Longer Taking Prescribed by: RAINE HERNANDEZ on 05/17/21 152 Isosorbide Mononitrate (Isosorbide Mononitrate ER) 30 Mg Tab.er.24h, 30 MG PO DAILY, (Reported) Entered as Reported by: SONJA OH on 05/24/21958 Naproxen Sodium (Aleve) 220 Mg Tablet, 220-440 MG PO BID PRN for PAIN-MILD (1- 4), (Reported) Entered as Reported by: SONJA OH on 05/24/21958 Nitrofurantoin Monohyd/M-Cryst (Nitrofurantoin Garrett-Mcr 100 mg) 100 Mg Capsule, 100 MG PO BID WITH MEALS Discontinued Reason: No Longer Taking Prescribed by: RAINE HERNANDEZ on 05/17/21 152 Physical Exam-Cardiology Physical Exam Vital Signs/I&O 05/25/21 05/25/21 05/25/21 05/26/21 22:55 23:26 23:58 00:20 Temp 36.0 37.2 Pulse 94 98 115 Resp 18 22 B/P (MAP) 151/105 128/74 (92) Pulse Ox 94 92 92 94 O2 Delivery Nasal Cannula Nasal Cannula Nasal Cannula O2 Flow Rate 2.00 2.00 2.00 FiO2 21 05/26/21 05/26/21 05/26/21 05/26/21 00:38 01:00 04:00 04:54 Temp 36.5 Pulse 99 91 Resp 20 B/P (MAP) 121/70 (87) Pulse Ox 94 94 O2 Delivery Nasal Cannula Nasal Cannula Nasal Cannula O2 Flow Rate 2.00 2.00 2.00 05/26/21 05/26/21 05/26/21 07:17 07:56 08:00 Temp 35.4 Pulse 80 Resp 18 B/P (MAP) 115/58 (77) Pulse Ox 93 92 O2 Delivery Nasal Cannula Nasal Cannula Nasal Cannula O2 Flow Rate 3.00 2.00 2.00 Capillary Refill : Less Than 3 Seconds Constitutional: AAO x 3, well-developed, well-nourished HEENT: PERRL, hearing is well preserved, oral hygience is good Neck: No carotid bruit; carotid pulses are 2 + bilaterally Respiratory: No accessory muscle use, No respiratory distress; chest expansion is symmetric, chest is bilaterally symmetric, rhonchi (scattered rhonchi throughout with prolonged exp phase) Cardiovascular: regular rate-rhythm; No JVD; S1 and S2 Gastrointestinal: No tender; soft, round, audible bowel sounds Extremities: no lower extremity edema bilateral Neurologic/Psychiatric: grossly intact (moves all extremities) Skin: No rash on exposed areas, No ulcerations on exposed areas; other (dressing to right groin in place; dressing D&I; no bruising at the site; RUQ large area of ecchymosis) Data Review Labs Laboratory Tests 05/25/21 20:25: SARS-CoV-2 RNA (RT-PCR) Not Detected 05/25/21 21:00: White Blood Count 10.4, Red Blood Count 4.10, Hemoglobin 13.8, Hematocrit 40, Mean Corpuscular Volume 97, Mean Corpuscular Hemoglobin 34, Mean Corpuscular Hemoglobin Concent 35, Red Cell Distribution Width 12.7, Platelet Count 217, Mean Platelet Volume 10.6, Immature Granulocyte % (Auto) 1, Neutrophils (%) (Auto) 78H, Lymphocytes (%) (Auto) 8L, Monocytes (%) (Auto) 5, Eosinophils (%) (Auto) 8, Basophils (%) (Auto) 0, Neutrophils # (Auto) 8.1H, Lymphocytes # (Auto) 0.9L, Monocytes # (Auto) 0.5, Eosinophils # (Auto) 0.9H, Basophils # (Auto) 0.0, Immature Granulocyte # (Auto) 0.1, Prothrombin Time 12.5, INR Comment 0.9, Activated Partial Thromboplast Time 32, Sodium Level 138, Potassium Level 4.1, Chloride Level 105, Carbon Dioxide Level 22, Anion Gap 11, Blood Urea Nitrogen 7, Creatinine 0.90, Estimat Glomerular Filtration Rate 67, BUN/Cr eatinine Ratio 8, Glucose Level 166H, Lactic Acid Level 1.63, Calcium Level 9.4, Corrected Calcium 9.4, Total Bilirubin 0.9, Aspartate Amino Transf (AST/SGOT) 18, Alanine Aminotransferase (ALT/SGPT) 21, Alkaline Phosphatase 164H, C- Reactive Protein High Sensitivity 1.26H, B-Type Natriuretic Peptide 173.6H, Total Protein 7.2, Albumin 4.0, Procalcitonin 0.05 05/25/21 21:17: Magnesium Level 1.4L, Troponin I 0.076H 05/25/21 21:20: Influenza Type A (RT-PCR) Not Detected, Influenza Type B (RT-PCR) Not Detected 05/25/21 22:08: Urine Color YELLOW, Urine Clarity CLEAR, Urine pH 6.0, Urine Specific [place] 1.010L, Urine Protein NEGATIVE, Urine Glucose (UA) NEGATIVE, Urine Ketones NEGATIVE, Urine Nitrite NEGATIVE, Urine Bilirubin NEGATIVE, Urine Urobilinogen 1.0, Urine Leukocyte Esterase NEGATIVE, Urine RBC (Auto) NEGATIVE, Urine RBC NONE, Urine WBC NONE, Urine Squamous Epithelial Cells RARE, Urine Crystals NONE, Urine Bacteria NEGATIVE, Urine Casts NONE, Urine Mucus NEGATIVE, Urine Culture Indicated NO 05/26/21 05:15: White Blood Count 12.4H, Red Blood Count 3.82, Hemoglobin 12.5, Hematocrit 37, Mean Corpuscular Volume 96, Mean Corpuscular Hemoglobin 33, Mean Corpuscular Hemoglobin Concent 34, Red Cell Distribution Width 12.6, Platelet Count 217, Mean Platelet Volume 10.6, Immature Granulocyte % (Auto) 0, Neutrophils (%) (Au to) 92H, Lymphocytes (%) (Auto) 6L, Monocytes (%) (Auto) 1, Eosinophils (%) (Auto) 1, Basophils (%) (Auto) 0, Neutrophils # (Auto) 11.4H, Lymphocytes # (Auto) 0.7L, Monocytes # (Auto) 0.1, Eosinophils # (Auto) 0.2, Basophils # (Auto) 0.0, Immature Granulocyte # (Auto) 0.0, Sodium Level 135, Potassium Level 3.9, Chloride Level 106, Carbon Dioxide Level 19L, Anion Gap 10, Blood Urea Nitrogen 7, Creatinine 0.77, Estimat Glomerular Filtration Rate 80, BUN/Creatinine Ratio 9, Glucose Level 275H, Calcium Level 9.0 05/26/21 08:49: Glucometer 261H 05/26/21 10:22: Glucometer 244H A/P-Cardiology Assessment/Admission Diagnosis Acute on chronic exacerbation of COPD - management per medical services Minimal troponin elevation likely secondary to transient hypoxia CAD: - H/o CABG in 2009. -Last ME on 04/23/20 due to mid-vessel, instent occlusion of RCA, treated with ballon angioplasty and stenting with Xience Radha 2.25x33 stent that was post- dilated to 3 mm kevin (Dr Bartlett). LAD had mild instent restenosis in prox LAD, LCX had patent stent, LVEDP 32 mmHg, preserved LV function, patent SVG to a diag, atretic LOPEZ to LAD. - Last card cath on 05/08/20 (Dr Macias) did not show any change in cor anatomy - MPI of 05-17-21: Inferior wall myocardial infarction with a small amount of ted-infarct ischemia. Inferior wall hypokinesis. Well preserved global left ventricular systolic function with ejection fraction of 54%. - Echo of 04/23/20: LVEF 55-60%, mild dil LA,mild to mod MR, PASP 25-30 mmHg - Last card cath on 05/24/21: patent stents in the L cor system, occluded/atretic LOPEZ to LAD, patent SVG to an OM with 70% ostial stenosis that was successfully stented on 05/24/21 with Radha 2.5 x 18 mm stent (deployed at [address]), midvessel instent occlusion of RCA and 90% proximal instent stenosis of RCA, prox RCA stenosis reduced to 50% with balloon angioplasty, distal RCA occlusion could not be opened up, LVEDP 17 mmHg GI - Mod hiatal hernia seen on CT of chest on 02-03-21 - H/o erosive esophagitis Abnormal ECG - ECG of 05/24/20 shows NSR, old IMI Tobaccoism - cessation advised Hyperlipidemia - being treated with atorvastatin - managed by PCP History of maturity onset diabetes mellitus. - managed by PCP Obesity - with a body mass index of approx 36 Body habitus and daytime somnolence is suggestive of REINA - sleep studies advised Discussion and Recomendations Acute on chronic exacerbation of COPD - management per medical services Continue current medications including DAPT d/t recent coronary stent placement Mildly elevated troponin likely Type 2 ME secondary to hypoxia Monitor lab closely Replace electrolytes as indicated We would like to thank medical services for this consult JIMENA ROBLES MD FACP FAC CCDS May 26, 2021 10:34
[2021-05-26] MEDS ORDERED: RT-ALBUINH IH (10:59)
[2021-05-26] MEDS ORDERED: METO-333 PO (10:59)
[2021-05-26] MEDS ORDERED: CLOP75TA69 PO (10:59)
[2021-05-26 11:45] VITALS: BP 110/53
--- NOTE | 2021-05-26 13:49 | History & Physical-Hospitalist ---
History of Present Illness HPI/Chief Complaint Pt is a 46yoCF with an extensive cardiac history and COPD who presented to the ER due to a multitude of complaints. She was just in the hospital due to chest pain and underwent cardiac cath with stent placement. She was discharged yesterday. She returned yesterday evening with cough, shortness of breath, wheezing, headache, nausea, and vomiting. She was found to be hypoxic and wheezing and was admitted for a COPD exacerbation. COVID swab was done and was negative. Source: patient Date Seen 05/26/21 Time Seen by a Provider: 13:45 Attending Physician Wilder Garcia MD PCP Willem Chamorro DO Referring Physician Date of Admission May 25, 2021 at 22:36 Home Medications & Allergies Home Medications Reviewed patient Home Medication Reconciliation performed by pharmacy medication reconciliations pest control service technician and/or nursing. Patients Allergies have been reviewed. Allergies Allergies Coded Allergies Penicillins (Verified Allergy, Unknown, 05/16/21) Sulfa (Sulfonamide Antibiotics) (Verified Allergy, Unknown, 05/16/21) naproxen (Verified Allergy, Unknown, HIVES, NAUSEA--can take ibuprofen, 05/16/21) Past Bdhgkhx-Zrisyn-Pvtoqo Hx Patient Social History Tobacco Use?: No Smoking Status: Former Smoker Smokeless Tobacco Frequency: Never a User Use of E-Cig and/or Vaping dev: No Use of E-Cig and/or Vaping Pierre: Never a User Substance use?: No Alcohol Use?: No Pt feels they are or have been: No Immunizations Up To Date Date of Influenza Vaccine: May 24, 2020 Tetanus Booster (TDap): More Than 5 Years Date of Pneumonia Vaccine: Jun 20, 2013 Seasonal Allergies Seasonal Allergies: No Current Status status: No status: No Advance Directives: No Communicates: Verbally Primary Language: Togolese Preferred Spoken Language: Togolese Is interpretation needed?: No Sensory deficits: Vision impairment Implanted or Applied Medical D: None Past Medical History Surgeries: Abdominal, Adenoidectomy, Cardiac, CABG, Coronary Stent, Ear Surgery, Gallbladder, Orthopedic, Tonsillectomy, Tracheostomy Asthma, Chronic Bronchitis, COPD Coronary Artery Disease, Deep Vein Thrombosis, Heart Attack, High Cholesterol, Hypertension Headaches /Migraines, Seizure Disorder Sexually Transmitted Disease: Yes (HERPES) Gastroesophageal Reflux, Esophagitis, Hiatal Hernia, Gall Bladder Disease Arthritis Hypothyroidsim, Diabetes, Non-Insulin dep Chronic Ear Infection Hearing Impairment: Hard of Hearing Cervical Did You Recieve Any Treatments: Yes What Type of Treatment Did You: Surgical Intervention Sleep Difficulties, Anxiety, Suicide Attempts, Depression Blood Disorders: No Adverse Reaction/Blood Tranf: No See Problem List Family Medical History Reviewed Nursing Family Hx No Pertinent Family Hx ADDITIONAL PAST MEDICAL AND PROCEDURAL HISTORY: -PT HAD NSTEMI AND WAS ADMITTED 04/22/20-04/24/20, HAD CARDIAC CATH 04/23/20 AND HAD STENT X 1 TO RCA -PT HAS PREVIOUSLY HAD A CABG IN 2009, MULTIPLE STENTS TO RCA, AND STENT TO CIRCUMFLEX IN THE PAST. Review of Systems Constitutional: No fever; malaise ( ) Respiratory: cough, short of breath, wheezing Cardiovascular: No chest pain, No edema Gastrointestinal: diarrhea, nausea, vomiting Genitourinary: no symptoms reported Musculoskeletal: no symptoms reported Skin: no symptoms reported Psychiatric/Neurological: No Symptoms Reported Physical Exam Physical Exam Vital Signs Vital Signs - First Documented 05/25/21 05/25/21 05/25/21 20:50 22:55 23:58 Temp 37.2 Pulse 115 Resp 17 B/P (MAP) 151/105 (120) Pulse Ox 94 O2 Delivery Room Air O2 Flow Rate 2.00 FiO2 21 Capillary Refill : Less Than 3 Seconds Height, Weight, BMI Height: 5'8.00" Weight: 189lbs. 0.0oz. 85.102988vc; 36.91 BMI Method:Stated General Appearance: No Apparent Distress, Chronically ill, Obese HEENT: PERRL/EOMI, Moist Mucous Membranes Neck: Normal Inspection, Supple Respiratory: No Accessory Muscle Use, Wheezing, Other (3lpmNC) Cardiovascular: Regular Rate, Rhythm, No JVD, No Murmur Gastrointestinal: Normal Bowel Sounds, Non Tender, Soft Extremity: No Calf Tenderness, No Pedal Edema Neurologic/Psychiatric: Alert, Oriented x3, Normal Mood/Affect Skin: Normal Color, Warm/Dry Results Results/Procedures Labs Laboratory Tests 05/25/21 21:00 05/26/21 05:15 Patient resulted labs reviewed. Imaging: Reviewed Imaging Report Imaging [facility], [place] NAME: WAN DA SILVA MED REC#: [id number] PT STATUS: REG ER : 1975 PHYSICIAN: DORA ROMERO MD ADMIT DATE: 05/25/21/ER Signed Date of Exam:05/25/21 CHEST 1 VIEW, AP/PA ONLY INDICATION: Cough, shortness of air. COMPARISON: 05/23/2021. FINDINGS: Sternal wires are midline. Heart size stable. There is some prominence of the central pulmonary vascularity, similar to the prior. No focal pneumonia or candace edema. No effusion or pneumothorax. IMPRESSION: Stable exam. Upper limits heart size and mild vascular congestion but no candace edema, focal pneumonia or pleural pathology. Dictated by: Dictated on workstation # [id number] Dict: 05/25/212120 Trans: 05/25/212142 [facility] [id number] Interpreted by: KURTIS HESTER Electronically signed by: KURTIS HESTER 05/25/212142 Assessment/Plan Admission Diagnosis COPD exacerbation Admission Status: Observation Reason for Inpatient Admission: see below Assessment and Plan COPD exacerbation Continue steroids MAT protocol Wean oxygen as able Add advair CAD s/p CABG and subsequent stents HTN HLD Stent deployed 05/24 Continue DAPT Cardiology consulted, appreciate recs Continue home meds NIDDMII- diet controlled anticipate higher BS with steroid use SSI DVT ppx: lovenox Diagnosis/Problems Diagnosis/Problems (1) COPD exacerbation Status: Acute (2) CAD (coronary artery disease) Status: Acute (3) T2DM (type 2 diabetes mellitus) Status: Chronic (4) HLD (hyperlipidemia) Status: Chronic MITCHELL LEBRON MD May 26, 2021 13:49
[2021-05-26] MEDS ORDERED: ENOXAPARIN 40 MG/0.4 ML (LOVENOX) SYR SQ SCH (14:00)
[2021-05-26 15:31] VITALS: BP 109/71
[2021-05-26 19:06] VITALS: BP 118/56
[2021-05-26] MEDS: meTOprolol TARTRATE 25 MG (LOPRESSOR) TABLET PO SCH (19:35)
[2021-05-26] MEDS ORDERED: ADVAIR HFA 115/21 MCG INHALER 8 GM IH SCH (21:00)
[2021-05-26] MEDS ORDERED: RT--FLUTICASONE/SALMETEROL 113-14 (AIRDUO RespiCLICK) IH SCH (21:00)
[2021-05-26 23:15] VITALS: BP 105/68
[2021-05-26] MEDS ORDERED: ZOLPIDEM 5 MG (AMBIEN) TAB ONE (23:57)
[2021-05-27] MEDS ORDERED: ZOLPIDEM 5 MG (AMBIEN) TAB PO PRN
[2021-05-27 05:00] VITALS: BP 123/77
[2021-05-27] MEDS: methylPREDNISolone 40 MG/ML (Solu-MEDROL) VIAL IV SCH ×2 (05:06→10:47)
[2021-05-27] MEDS: inSUlin ASPART (NovoLOG) 1 UNIT/0.01 ML (CHARGE PER UNIT) SC SCH ×2 (05:16→10:47)
[2021-05-27] MEDS: RT-ALBUTEROL/IPRATROPIUM 3 ML (DUONEB) VIAL INH SCH (07:01)
[2021-05-27 07:47] VITALS: BP 115/59
[2021-05-27 08:56] LABS: POTASSIUM 3.9 MMOL/L (3.6-5.0)
[2021-05-27 08:57] LABS: CALCIUM 9.3 MG/DL (8.5-10.1)
[2021-05-27 09:02] LABS: CREATININE SERUM 0.84 MG/DL (0.60-1.30)
[2021-05-27] MEDS: MAGNESIUM OXIDE (MAG-OX)400 MG TAB PO SCH (09:11)
[2021-05-27] MEDS: ASPIRIN E.C. 81 MG (ECOTRIN) TAB PO SCH (09:13)
[2021-05-27] MEDS: CLOPIDOGREL 75 MG (PLAVIX) TABLET PO SCH (09:13)
[2021-05-27] MEDS: meTOprolol TARTRATE 25 MG (LOPRESSOR) TABLET PO SCH (09:13)
[2021-05-27] MEDS ORDERED: PRD20T PO (09:34)
[2021-05-27] MEDS ORDERED: FLUT1AER4 IH (09:34)
--- NOTE | 2021-05-27 09:35 | Discharge Inst-Simple/Standard ---
Discharge Inst-Standard Discharge Medications New, Converted or Re-Newed RX: Transmitted to Pharmacy Patient Instructions/Follow Up Plan of Care/Instructions/FU: Please continue to take your medications as written. Please follow up with your primary care doctor to follow up this hospital stay. Activity as Tolerated: Yes Discharge Diet: No Restrictions Return to The Hospital For: Chest pain, shortness of breath, fever, weakness, if you feel you are getting worse. MITCHELL LEBRON MD May 27, 2021 09:35
--- NOTE | 2021-05-27 09:36 | Discharge Summary ---
Diagnosis/Chief Complaint Date of Admission May 25, 2021 at 22:36 Date of Discharge Discharge Date: May 27, 2021 Admission Diagnosis COPD exacerbation Primary Care Willem Chamorro DO Discharge Diagnosis (1) COPD exacerbation Status: Acute (2) CAD (coronary artery disease) Status: Acute (3) T2DM (type 2 diabetes mellitus) Status: Chronic (4) HLD (hyperlipidemia) Status: Chronic Discharge Summary Discharge Physical Exam Allergies: Coded Allergies: Penicillins (Verified Allergy, Unknown, 05/16/21) Sulfa (Sulfonamide Antibiotics) (Verified Allergy, Unknown, 05/16/21) naproxen (Verified Allergy, Unknown, HIVES, NAUSEA--can take ibuprofen, 05/16/21) Vitals & I&Os Vital Signs Date Time Temp Pulse Resp B/P (MAP) Pulse Ox O2 Delivery O2 Flow Rate FiO2 05/27/21 11:11 36.9 78 20 115/59 95 Room Air 3.00 05/25/21 23:58 21 General Appearance: No Apparent Distress, Chronically ill, Obese Respiratory: Lungs Clear, No Respiratory Distress Cardiovascular: Regular Rate, Rhythm, No Murmur Neurologic/Psychiatric: Alert, Oriented x3 Hospital Course She was admitted to the hospital due to COPD exacerbation with hypoxia. She was started on Solu-Medrol and Advair and did very well. She was transitioned to oral prednisone for discharge. She was able to be titrated off of oxygen completely upon discharge and was recommended to follow-up with Dr. Chamorro. Of note she had just had a cardiac cath the day prior and cardiology was con sulted and she was doing well from a cardiac standpoint. She is to follow-up with Dr. Aguilar as already scheduled. Labs (last 24 hrs) Microbiology 05/25/21 Urine Culture - Final, Complete Mixed Bacterial Stephanie 05/25/21 Blood Culture - Preliminary, Resulted No growth Patient resulted labs reviewed. Pending Labs Imaging: Reviewed Imaging Report Discussion & Recommendations Discharge Planning: >30 minutes discharge planning Discharge Home Medications: Active Scripts Active Prednisone 20 Mg Tab 40 Mg PO DAILY Fluticasone-Salmeterol 113-14 (Fluticasone/Salmeterol) 1 Each Aer.pow.ba 0 Each IH RTBID Reported Proair Hfa (Albuterol Sulfate) 1 Puff Puff 2 Puff IH Q4H PRN Metoprolol Tartrate 25 Mg Tablet 12.5 Mg PO BID TAKES OF A 25MG TAB Plavix (Clopidogrel Bisulfate) 75 Mg Tablet 75 Mg PO DAILY Atorvastatin Calcium 40 Mg Tablet 40 Mg PO DAILY Aspirin EC (Aspirin) 81 Mg Tablet.dr 81 Mg PO DAILY Instructions to patient/family Please see electronic discharge instructions given to patient. MITCHELL LEBRON MD May 27, 2021 09:36
[2021-05-27 11:11] VITALS: BP 115/59
== END 2021-05-27 09:36 | disposition home or self-care (01) ==
LOC: EDUNIT# 20:31 → ER 20:33 → 4TH 22:36 → INTOOBSV 22:36 → UNDOADMOB 22:36 → 4TH 23:26 → UNDODISOB 05-27 11:10
PROVIDERS: ADMIT Internal Medicine; ATTEND Internal Medicine
DX: J44.1 Chronic obstructive pulmonary disease with (acute) exacerbation (principal); I25.10 Atherosclerotic heart disease of native coronary artery without angina pectoris; E78.00 Pure hypercholesterolemia, unspecified; E78.5 Hyperlipidemia, unspecified; E11.9 Type 2 diabetes mellitus without complications; I25.2 Old myocardial infarction; R00.0 Tachycardia, unspecified; E03.9 Hypothyroidism, unspecified; R09.02 Hypoxemia; R11.2 Nausea with vomiting, unspecified; R19.7 Diarrhea, unspecified; M79.10 Myalgia, unspecified site; I10 Essential (primary) hypertension; F41.9 Anxiety disorder, unspecified; F32.9 Major depressive disorder, single episode, unspecified; K44.9 Diaphragmatic hernia without obstruction or gangrene; E66.9 Obesity, unspecified; M19.90 Unspecified osteoarthritis, unspecified site; Z79.899 Other long term (current) drug therapy; Z79.82 Long term (current) use of aspirin; Z79.02 Long term (current) use of antithrombotics/antiplatelets; Z95.1 Presence of aortocoronary bypass graft; Z87.891 Personal history of nicotine dependence; Z68.36 Body mass index [BMI] 36.0-36.9, adult; Z20.822 Contact with and (suspected) exposure to COVID-19
CPT/HCPCS: 71045; 80048 ×2; 80053; 81000; 82947 ×2; 83605; 83735 ×2; 83880; 84145; 84484; 85025 ×2; 85610; 85730; 86141; 87040; 87088; 87636; 93005; 93041; 94640 ×2; 94760; 99284; G0378; 36415

== ENCOUNTER 2021-06-04 18:10 | Emergency (ER) | payer MEDICARE, MEDICAID ==
[~2021-06-04] VITALS: Ht 172.7 cm; Wt 108.8 kg
[~2021-06-04 18:10] MED LIST changes: +CLOP75TA69 PO; +FLUT1AER4 IH; +PRD20T PO; +RT-ALBUINH IH
--- NOTE | 2021-06-04 18:52 | ED Lower Extremity ---
General Chief Complaint: Lower Extremity Stated Complaint: L HIP/KNEE PAIN Nursing Triage Note: PT TO [facility] BY [facility] FROM HOME AFTER A FALL. STATES SHE WAS IN HER BASEMENT AND SLIPPED ON WATER. COMPLAINING OF LEFT KNEE AND HIP PAIN. STATES HAS HAD MULTIPLE SCOPES ON KNEE. Source: patient Exam Limitations: no limitations History of Present Illness Date Seen by Provider: Jun 04, 2021 Time Seen by Provider: 18:38 Initial Comments Patient is a 46-year-old female who presents to the emergency room after a mechanical slip and fall while walking in her basement. Patient states she slipped in some water and "did the splits" with her right leg going forward and left leg going backwards. She complains of anterior knee pain over the patella on the left leg as well as some left lateral hip pain. Patient is able to ambulate but she states "it hurts". No other complaints of recent illness or injury. She has not taken anything for the pain. All other review of systems reviewed and negative except as stated. Onset: this evening (1729) Severity: moderate Pain/Injury Location: left hip, left knee Method of Injury: fell Modifying Factors: Worse With Movement Allergies and Home Medications Allergies Coded Allergies: Penicillins (Verified Allergy, Unknown, 05/16/21) Sulfa (Sulfonamide Antibiotics) (Verified Allergy, Unknown, 05/16/21) naproxen (Verified Allergy, Unknown, HIVES, NAUSEA--can take ibuprofen, 05/16/21) Patient Home Medication List Home Medication List Reviewed: Yes Albuterol Sulfate (Proair Hfa) 1 Puff Puff, 2 PUFF IH Q4H PRN for SHORTNESS OF BREATH, (Reported) Entered as Reported by: SONJA OH on 05/26/21 1059 Aspirin (Aspirin EC) 81 Mg Tablet.dr, 81 MG PO DAILY, (Reported) Entered as Reported by: SONJA OH on 05/24/21 0959 Atorvastatin Calcium (Atorvastatin Calcium) 40 Mg Tablet, 40 MG PO DAILY, (Reported) Entered as Reported by: SONJA OH on 05/24/21 0959 Clopidogrel Bisulfate (Plavix) 75 Mg Tablet, 75 MG PO DAILY, (Reported) Entered as Reported by: SONJA OH on 05/26/21 1059 Fluticasone/Salmeterol (Fluticasone-Salmeterol 113-14) 1 Each Aer.pow.ba, 0 EACH IH RTBID Prescribed by: MITCHELL LEBRON on 05/27/21 0934 Metoprolol Tartrate (Metoprolol Tartrate) 25 Mg Tablet, 12.5 MG PO BID, (Reported) Entered as Reported by: SONJA OH on 05/26/21 1059 Prednisone (Prednisone) 20 Mg Tab, 40 MG PO DAILY Prescribed by: MITCHELL LEBRON on 05/27/21 0934 Tramadol HCl (Tramadol HCl) 50 Mg Tablet, 50 MG PO Q6H PRN for PAIN Prescribed by: HOANG MINAYA on 06/04/21 2604 Review of Systems Constitutional: no symptoms reported, see HPI EENTM: no symptoms reported Respiratory: no symptoms reported Cardiovascular: no symptoms reported Gastrointestinal: no symptoms reported Genitourinary: no symptoms reported Musculoskeletal: joint pain (left knee and left hip) Skin: no symptoms reported All Other Systems Reviewed Negative Unless Noted: Yes Past Ltrrmct-Qavuqc-Yivonr Hx Patient Social History Tobacco Use?: No Use of E-Cig and/or Vaping dev: No Substance use?: No Alcohol Use?: No Pt feels they are or have been: No Immunizations Up To Date Tetanus Booster (TDap): More than 5yrs Seasonal Allergies Seasonal Allergies: No Past Medical History Surgery/Hospitalization HX: heart cath 04/23 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) Sexually Transmitted Disease: Yes (HERPES) Genitourinary: No Gastrointestinal: Yes (S/P FABRICE FUNDOPLICATION) Gastroesophageal Reflux, Esophagitis, Hiatal Hernia, Gall Bladder Disease Musculoskeletal: Yes Arthritis Endocrine: Yes Hypothyroidsim, Diabetes, Non-Insulin dep HEENT: Yes Chronic Ear Infection Hearing Impairment: Hard of Hearing Cancer: Yes Cervical Did You Recieve Any Treatments: Yes What Type of Treatment Did You: Surgical Intervention Psychosocial: Yes Sleep Difficulties, Anxiety, Suicide Attempts, Depression Integumentary: No Blood Disorders: No Adverse Reaction/Blood Tranf: No Family Medical History No Pertinent Family Hx ADDITIONAL PAST MEDICAL AND PROCEDURAL HISTORY: -PT HAD NSTEMI AND WAS ADMITTED 04/22/20-04/24/20, HAD CARDIAC CATH 04/23/20 AND HAD STENT X 1 TO RCA -PT HAS PREVIOUSLY HAD A CABG IN 2009, MULTIPLE STENTS TO RCA, AND STENT TO CIRCUMFLEX IN THE PAST. Physical Exam Vital Signs Vital Signs - First Documented 06/04/21 18:20 Temp 36.3 Pulse 79 Resp 16 B/P (MAP) 95/71 (79) Pulse Ox 97 O2 Delivery Room Air Capillary Refill : Less Than 3 Seconds Height, Weight, BMI Height: 5'8.00" Weight: 189lbs. 0.0oz. 85.626802vw; 36.00 BMI Method:Stated General Appearance: WD/WN, mild distress HEENT: PERRL/EOMI Neck: normal inspection Cardiovascular: regular rate, rhythm, other (good distal pulses) Respiratory: no respiratory distress, no accessory muscle use Hips: right hip normal inspection, right hip normal range of motion; left hip soft tissue tenderness (soft tissue tenderness over the left hip - no abrasions/eccymoses/erythema. patient examined both standing and supine. Good ROM - just has some pain with it. no instability noted.) Legs: bilateral leg non-tender, bilateral leg normal inspection, bilateral leg normal range of motion, bilateral leg no evidence of injury Knees: left knee bone tenderness (tenderness to palpation of the left patella; no effusion is noted - no soft tissue swelling. limited ROM due to pain. patient manifests tenderness to palpation of the medial and lateral jjoint line as well. no crepitance/no instability), left knee pain Ankles: bilateral ankle non-tender, bilateral ankle normal inspection, bilateral ankle normal range of motion, bilateral ankle no evidence of injury Feet: bilateral foot non-tender, bilateral foot normal inspection, bilateral foot normal range of motion, bilateral foot no evidence of injury Neurologic/Tendon: normal sensation, normal motor functions, normal tendon functions Neurologic/Psychiatric: alert, normal mood/affect, oriented x 3 Skin: normal color, warm/dry Progress/Results/Core Measures Results/Orders My Orders Orders - HOANG MINAYA MD Knee, Left, 3 Views (06/04/21 18:45) Tramadol Tablet (Ultram Tablet) (06/04/21 19:00) Medications Given in ED Current Medications Medications Dose Ordered Sig/Sara Route Start Time Stop Time Status Last Admin Dose Admin Tramadol HCl 50 mg ONCE ONCE PO 06/04/21 19:00 06/04/21 19:01 DC 06/04/21 18:58 50 MG Vital Signs/I&O 06/04/21 18:20 Temp 36.3 Pulse 79 Resp 16 B/P (MAP) 95/71 (79) Pulse Ox 97 O2 Delivery Room Air Blood Pressure Mean: 79 Diagnostic Imaging Diagonstic Imaging: Xray Comments [facility], [place] NAME: WAN DA SILVA [facility] REC#: [id number] PT STATUS: REG ER : 1975 PHYSICIAN: HOANG MINAYA MD ADMIT DATE: 06/04/21/ER Draft Date of Exam:06/04/21 KNEE, LEFT, 3 VIEWS INDICATION: Left knee pain, status post injury. COMPARISON: None. FINDINGS: Three views of the left knee joint demonstrate no acute fracture or dislocation. No focal osseous lesions are seen. No significant joint effusion is seen. The surrounding soft tissue structures are unremarkable. There are no radiopaque foreign bodies. IMPRESSION: No acute fractures or dislocations of the left knee joint. Dictated on workstation # [id number] Dict: 06/04/211924 Trans: 06/04/211929 [id number] Interpreted by: JAYSON DANIELS MD Electronically signed by: Departure Impression Primary Impression: Left anterior knee pain Additional Impression: Left hip pain Disposition: 01 HOME, SELF-CARE Condition: Stable Departure-Patient Inst. Decision time for Depature: 18:51 Referrals: EDWAR LOBO DO (PCP/Family) Primary Care Physician Patient Instructions: Knee Sprain (DC) Add. Discharge Instructions: Use ice packs to your sore joints off an on over the next 1-2 days. tramadol, 1 pill every 6 hours as needed for pain for the next 1-2 days, otherwise use over the counter tylenol as needed every 6 hours. Follow up with your primary care physician as needed. Scripts Tramadol HCl (Tramadol HCl) 50 Mg Tablet 50 MG PO Q6H PRN for PAIN, #8 TAB 0 Refills Prov: HOANG MINAYA MD 06/04/21 HOANG MINAYA MD Jun 04, 2021 18:52
[2021-06-04] MEDS ORDERED: TRM50T PO (18:53)
--- NOTE | 2021-06-04 19:31 | Diagnostic Imaging Report ---
INDICATION: Left knee pain, status post injury. COMPARISON: None. FINDINGS: Three views of the left knee joint demonstrate no acute fracture or dislocation. No focal osseous lesions are seen. No significant joint effusion is seen. The surrounding soft tissue structures are unremarkable. There are no radiopaque foreign bodies. IMPRESSION: No acute fractures or dislocations of the left knee joint. Dictated by: Dictated on workstation # [id number]
[2021-06-04 20:02] VITALS: BP 105/76
== END 2021-06-04 20:03 | disposition home or self-care (01) ==
LOC: EDUNIT# 18:10 → ER 18:19
DX: M25.562 Pain in left knee (principal); M25.552 Pain in left hip; J44.9 Chronic obstructive pulmonary disease, unspecified; I25.2 Old myocardial infarction; I10 Essential (primary) hypertension; E78.00 Pure hypercholesterolemia, unspecified; I25.10 Atherosclerotic heart disease of native coronary artery without angina pectoris; E11.9 Type 2 diabetes mellitus without complications; Z86.718 Personal history of other venous thrombosis and embolism; Z79.82 Long term (current) use of aspirin; Z79.01 Long term (current) use of anticoagulants; Z79.899 Other long term (current) drug therapy
CPT/HCPCS: 73562

== ENCOUNTER 2021-06-07 07:47 | Emergency (ER) | payer MEDICARE, MEDICAID ==
[~2021-06-07] VITALS: Ht 172.7 cm; Wt 90.9 kg
[~2021-06-07 07:47] MED LIST changes: +TRM50T PO
[2021-06-07 08:00] VITALS: BP 126/86
--- NOTE | 2021-06-07 08:03 | ED Suture Removal/Wound Check ---
Suture/Wound Re-check Suture Removal/Wound Recheck : Suture Removal/Wound Recheck: Sutures removed by MD Pederson Patient had cardiac catheterization May 24. She has a large braided suture at the cath insertion site. She states the cardiology office told her to come to the emergency room because no one was in the office to be able to remove her suture. She has some localized minor swelling and erythema without significant tenderness, warmth, or any purulent drainage. The area was thoroughly scrubbed with alcohol and chlorhexidine. The suture was then removed. Skin was again cleaned with chlorhexidine and a thin layer of antibiotic ointment applied. General Appearance: WD/WN, no apparent distress Skin Exam: warm/dry, other (Localized erythema) Physical Exam Vital Signs Vital Signs - First Documented 06/07/21 07:50 Temp 36.9 Pulse 99 Resp 18 B/P (MAP) 126/86 Pulse Ox 93 O2 Delivery Room Air Capillary Refill : General Appearance: WD/WN, no apparent distress Departure Impression Primary Impression: Visit for suture removal Disposition: 01 HOME, SELF-CARE Condition: Stable Departure-Patient Inst. Referrals: EDWAR LOBO DO (PCP) Primary Care Physician Patient Instructions: SUTURE CHECK-NO COMPLICATION Copy Copies To 1: JIMENA ROBLES MD FACP [facility] DORA ROMERO MD Jun 07, 2021 08:03
== END 2021-06-07 08:01 | disposition home or self-care (01) ==
LOC: EDUNIT# 07:47 → ER 07:48
DX: Z48.02 Encounter for removal of sutures (principal)

== ENCOUNTER 2021-06-26 19:10 | Observation (INO) | payer MEDICARE, MEDICAID ==
[2021-06-26] VITALS (7 sets, daily range): BP systolic 85–125; BP diastolic 62–80
[~2021-06-26] VITALS: Ht 172 cm; Wt 97.5 kg
[2021-06-26] MEDS ORDERED: ASPIRIN 81 MG CHEW (CHILDREN'S ASA) PO ONE (19:15)
[2021-06-26] MEDS ORDERED: NITROGLYCERIN 0.4 MG SL TABS BTL 25'S SL PRN (19:15)
[2021-06-26 19:24] LABS: BASOPHILS # (AUTO) 0.1 10^3/uL (0.0-0.1); BASOPHILS % (AUTO) 1 % (0-10); EOSINOPHILS % (AUTO) 11 % (0-10); HEMATOCRIT 40 % (35-52); LYMPHOCYTES # (AUTO) 4.6 10^3/uL (1.0-4.0); LYMPHOCYTES % (AUTO) 47 % (12-44); MEAN CORPUSCULAR HEMOGLOBIN 33 pg (25-34); MEAN CORPUSCULAR HGB CONC 35 g/dL (32-36); MEAN CORPUSCULAR VOLUME 95 fL (80-99); MEAN PLATELET VOLUME 10.2 fL (9.0-12.2); MONOCYTES # (AUTO) 0.7 10^3/uL (0.0-1.0); MONOCYTES % (AUTO) 7 % (0-12); NEUTROPHILS # (AUTO) 3.3 10^3/uL (1.8-7.8); NEUTROPHILS % (AUTO) 34 % (42-75); PLATELET COUNT 279 10^3/uL (130-400); WHITE BLOOD COUNT 9.8 10^3/uL (4.3-11.0)
[2021-06-26 19:30] LABS: BILIRUBIN,URINE NEGATIVE (NEGATIVE); CLARITY,URINE CLEAR; COLOR,URINE YELLOW; GLUCOSE, URINE (UA) NEGATIVE (NEGATIVE); KETONES,URINE NEGATIVE (NEGATIVE); LEUKOCYTE ESTERASE ,URINE NEGATIVE (NEGATIVE); NITRITE,URINE NEGATIVE (NEGATIVE); PROTEIN,URINE NEGATIVE (NEGATIVE)
--- NOTE | 2021-06-26 19:38 | ED Cardiac General ---
History of Present Illness General Chief Complaint: Chest Pain Stated Complaint: CP Nursing Triage Note: states sharp chest pain, unrelieved with Nitro. 325 ASA given along with 1 nitro by EMS Source: patient, EMS, old records History of Present Illness Date Seen by Provider: Jun 26, 2021 Time Seen by Provider: 19:11 Initial Comments PT ARRIVES VIA EMS FROM HOME C/O CHEST PAIN --ALL ACROSS CHEST C/O SHORTNESS OF BREATH NO PAIN ON BREATHING RATES PAIN "10" SYMPTOMS BEGAN 30 MINUTES PRIOR TO ARRIVAL, STATES SHE WAS SITTING DOWN WHEN SYMPTOMS BEGAN HAS ONGOING NAUSEA, NO VOMITING, NO DIARRHEA NO SWELLING IN LEGS/FEET OR PAIN IN CALVES NO PALPITATIONS NO DIZZINESS OR SYNCOPE NO COUGH NO FEVER OR RECENT ILLNESS NO SWELLING NO LOSS OF TASTE OR SMELL NO HEADACHE NO BODY ACHES HAS NOT TAKEN ANYTHING FOR PAIN AT HOME EMS GAVE 324 MG ASPIRIN AND NTG X 1-NO RELIEF OF PAIN, AND BP DROPPED FROM 140 SYSTOLIC TO 90 SYSTOLIC--BP UP WITH FLUIDS PT WITH SIGNIFICANT HISTORY FOR CAD WITH MULTIPLE INTERVENTIONS--MOST RECENT STENT PLACED 05/24/[address] ROBLES PT IS ON PLAVIX AND ASPIRIN PT HAS NOT FOLLOWED UP WITH ANYONE SINCE THAT ADMIT. PT ALSO HAS COPD WITH MULTIPLE EPISODES OF PNEUMONIA AND COPD EXACERBATIONS PT WITH A MULTITUDE OF VISITS FOR THESE SAME COMPLAINTS PT HAS NOT BEEN VACCINATED FOR COVID-19 LMP--2005--STATES SHE WAS ON DEPO-PROVERA AND DID NOT HAVE PERIODS, BUT HAS NOT HAD ANY DEPO-PROVERA OR ANY CONTROL IN OVER A YEAR. 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 LOBO CREDIT CASHIER: DR. ROBLES Allergies and Home Medications Allergies Coded Allergies: Penicillins (Verified Allergy, Unknown, 05/16/21) Sulfa (Sulfonamide Antibiotics) (Verified Allergy, Unknown, 05/16/21) naproxen (Verified Allergy, Unknown, HIVES, NAUSEA--can take ibuprofen, 05/16/21) Patient Home Medication List Home Medication List Reviewed: Yes Albuterol Sulfate (Proair Hfa) 1 Puff Puff, 2 PUFF IH Q4H PRN for SHORTNESS OF BREATH, (Reported) Entered as Reported by: SONJA OH on 05/26/21 1059 Last Action: Reviewed Aripiprazole (Abilify) 15 Mg Tablet, 7.5 MG PO DAILY, (Reported) Entered as Reported by: SONJA OH on 06/27/21 103 Last Action: Reviewed Aspirin (Aspirin EC) 81 Mg Tablet.dr, 81 MG PO DAILY, (Reported) Entered as Reported by: SONJA OH on 05/24/21958 Last Action: Reviewed Atorvastatin Calcium (Atorvastatin Calcium) 40 Mg Tablet, 40 MG PO HS, (Reported) Entered as Reported by: SONJA OH on 05/24/21958 Last Action: Reviewed Clopidogrel Bisulfate (Plavix) 75 Mg Tablet, 75 MG PO DAILY, (Reported) Entered as Reported by: SONJA OH on 05/26/21 105 Last Action: Reviewed Famotidine (Famotidine) 20 Mg Tablet, 20 MG PO BID PRN for INDIGESTION Prescribed by: MITCHELL LEBRON on 06/27/21 112 Hydroxyzine HCl (Hydroxyzine HCl) 25 Mg Tablet, 25 MG PO BID PRN for ANXIETY, (Reported) Entered as Reported by: SONJA OH on 06/27/211035 Last Action: Reviewed Ibuprofen (Ibuprofen) 200 Mg Tablet, 200-400 MG PO Q8H PRN for PAIN-MILD (1-4), (Reported) Entered as Reported by: SONJA OH on 06/27/21 1038 Last Action: Reviewed Metoprolol Tartrate (Metoprolol Tartrate) 25 Mg Tablet, 12.5 MG PO BID, (Reported) Entered as Reported by: SONJA OH on 05/26/211058 Last Action: Reviewed Pantoprazole Sodium (Pantoprazole Sodium) 40 Mg Tablet., 40 MG PO DAILY Prescribed by: MITCHELL LEBRON on 06/27/21 112 Sertraline HCl (Sertraline HCl) 100 Mg Tablet, 100 MG PO HS, (Reported) Entered as Reported by: SONJA OH on 06/27/21 103 Last Action: Reviewed Discontinued Medications Fluticasone/Salmeterol (Fluticasone-Salmeterol 113-14) 1 Each Aer.pow.ba, 0 EACH IH RTBID Discontinued Reason: No Longer Taking Prescribed by: MITCHELL LEBRON on 05/27/21933 Last Action: Discontinued Prednisone (Prednisone) 20 Mg Tab, 40 MG PO DAILY Discontinued Reason: No Longer Taking Prescribed by: MITCHELL LEBRON on 05/27/21933 Last Action: Discontinued Tramadol HCl (Tramadol HCl) 50 Mg Tablet, 50 MG PO Q6H PRN for PAIN Discontinued Reason: No Longer Taking Prescribed by: HOANG MINAYA on 06/04/21 2110 Last Action: Discontinued Review of Systems Review of Systems Constitutional: no symptoms reported EENTM: No Symptoms Reported Respiratory: See HPI, Shortness of Air Cardiovascular: See HPI, Chest Pain Gastrointestinal: See HPI; Denies Abdominal Pain, Denies Diarrhea; Nausea; Denies Vomiting Genitourinary: No Symptoms Reported Musculoskeletal: no symptoms reported Skin: no symptoms reported Psychiatric/Neurological: No Symptoms Reported Endocrine: No Symptoms Reported Hematologic/Lymphatic: No Symptoms Reported Past Gjtjuaj-Iqykjr-Tvxavr Hx Patient Social History Tobacco Use?: Yes Tobacco type used: Cigarettes Smoking Status: Current Everyday Smoker Use of E-Cig and/or Vaping dev: No Substance use?: No Alcohol Use?: No Immunizations Up To Date Tetanus Booster (TDap): More than 5yrs First/Initial COVID19 Vaccinat: not vaccinated Seasonal Allergies Seasonal Allergies: No Past Medical History Surgery/Hospitalization HX: SEE BELOW 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) Sexually Transmitted Disease: Yes (HERPES) Genitourinary: No Gastrointestinal: Yes (S/P FABRICE FUNDOPLICATION) Gastroesophageal Reflux, Esophagitis, Hiatal Hernia, Gall Bladder Disease Musculoskeletal: Yes Arthritis Endocrine: Yes Hypothyroidsim, Diabetes, Non-Insulin dep HEENT: Yes Chronic Ear Infection Hearing Impairment: Hard of Hearing Cancer: Yes Cervical Did You Recieve Any Treatments: Yes What Type of Treatment Did You: Surgical Intervention Psychosocial: Yes Sleep Difficulties, Anxiety, Suicide Attempts, Depression Integumentary: No Blood Disorders: No Adverse Reaction/Blood Tranf: No Family Medical History No Pertinent Family Hx ADDITIONAL PAST MEDICAL AND PROCEDURAL HISTORY: -FABRICE FUNDOPLICATION -CHOLECYSTECTOMY -TONSILLECTOMY/ADENOIDECTOMY -TRACHEOSTOMY/LATER REMOVAL -PT HAD NSTEMI AND WAS ADMITTED 04/22/20-04/24/20, HAD CARDIAC CATH 04/23/20 AND HAD STENT X 1 TO RCA -PT HAS PREVIOUSLY HAD A CABG IN 2009, MULTIPLE STENTS TO RCA, AND STENT TO CIRCUMFLEX IN THE PAST. CARDIAC CATH 05/24/[address] ROBLES: CONCLUSIONS: 1. Coronary artery disease as detailed above. The left anterior descending and left circumflex arteries have patent stents. An obtuse marginal branch of the left circumflex has a patent aortocoronary graft, this graft had 70% ostial stenosis and was successfully stented with Radha 2.5 x 18 mm stent, deployed at 20 atmospheres. The right coronary artery had 90% proximal stenosis, which went to 50% stenosis following balloon angioplasty. The mid and distal right coronary artery have in-stent occlusion. This is a very long segment of occlusion and attempts at percutaneous intervention to this portion of the vessel were unsuccessful. 2. Mild elevation of left ventricular end-diastolic pressure. DISCUSSION AND RECOMMENDATIONS: Risk factor modification has been advised. Dual antiplatelet therapy is being continued. Because of low blood pressure, she is not a suitable candidate for beta blockers or MORRO inhibitors or angiotensin receptor blockers. Statin therapy is being continued. Physical Exam Vital Signs Vital Signs - First Documented 06/26/21 19:17 Temp 36.9 Pulse 81 Resp 20 B/P (MAP) 105/65 (78) Pulse Ox 98 O2 Delivery Room Air Capillary Refill : Less Than 3 Seconds Height, Weight, BMI Height: 5'8.00" Weight: 189lbs. 0.0oz. 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 Norm as Tested Skin: Normal Color, Warm/Dry, Tattoos/Piercings (TATTOOS) Progress/Results/Core Measures Results/Orders Lab Results Laboratory Tests Test 06/26/21 19:10 06/26/21 19:20 Range/Units White Blood Count 9.8 4.3-11.0 10^3/uL Red Blood Count 4.19 3.80-5.11 10^6/uL Hemoglobin 14.0 11.5-16.0 g/dL Hematocrit 40 35-52 % Mean Corpuscular Volume 95 80-99 fL Mean Corpuscular Hemoglobin 33 25-34 pg Mean Corpuscular Hemoglobin Concent 35 32-36 g/dL Red Cell Distribution Width 12.1 10.0-14.5 % Platelet Count 279 130-400 10^3/uL Mean Platelet Volume 10.2 9.0-12.2 fL Immature Granulocyte % (Auto) 0 % Neutrophils (%) (Auto) 34 L 42-75 % Lymphocytes (%) (Auto) 47 H 12-44 % Monocytes (%) (Auto) 7 0-12 % Eosinophils (%) (Auto) 11 H 0-10 % Basophils (%) (Auto) 1 0-10 % Neutrophils # (Auto) 3.3 1.8-7.8 10^3/uL Lymphocytes # (Auto) 4.6 H 1.0-4.0 10^3/uL Monocytes # (Auto) 0.7 0.0-1.0 10^3/uL Eosinophils # (Auto) 1.0 H 0.0-0.3 10^3/uL Basophils # (Auto) 0.1 0.0-0.1 10^3/uL Immature Granulocyte # (Auto) 0.0 0.0-0.1 10^3/uL Prothrombin Time 12.2 12.2-14.7 SEC INR Comment 0.9 0.8-1.4 Activated Partial Thromboplast Time 31 24-35 SEC Sodium Level 138 135-145 MMOL/L Potassium Level 4.3 3.6-5.0 MMOL/L Chloride Level 106 98-107 MMOL/L Carbon Dioxide Level 19 L 21-32 MMOL/L Anion Gap 13 5-14 MMOL/L Blood Urea Nitrogen 16 7-18 MG/DL Creatinine 0.90 0.60-1.30 MG/DL Estimat Glomerular Filtration Rate 67 BUN/Creatinine Ratio 18 Glucose Level 152 H 70-105 MG/DL Calcium Level 9.4 8.5-10.1 MG/DL Corrected Calcium 9.6 8.5-10.1 MG/DL Magnesium Level 1.8 1.6-2.4 MG/DL Total Bilirubin 0.4 0.1-1.0 MG/DL Aspartate Amino Transf (AST/SGOT) 13 5-34 U/L Alanine Aminotransferase (ALT/SGPT) 15 0-55 U/L Alkaline Phosphatase 104 40-136 U/L Total Creatine Kinase 48 29-168 U/L Creatine Kinase MB 1.1 <6.6 NG/ML Myoglobin 23.5 10.0-92.0 NG/ML Troponin I < 0.028 <0.028 NG/ML C-Reactive Protein High Sensitivity 0.07 0.00-0.50 MG/DL B-Type Natriuretic Peptide 55.0 <100.0 PG/ML Total Protein 6.8 6.4-8.2 GM/DL Albumin 3.8 3.2-4.5 GM/DL Amylase Level 52 25-125 U/L Lipase 38 8-78 U/L Procalcitonin 0.02 <0.10 NG/ML Human Chorionic Gonadotropin, Quant 5 <5 MIU/ML Serum Test, Qualitative POSITIVE NEGATIVE Urine Color YELLOW Urine Clarity CLEAR Urine pH 6.0 5-9 Urine Specific [place] 1.025 H 1.016-1.022 Urine Protein NEGATIVE NEGATIVE Urine Glucose (UA) NEGATIVE NEGATIVE Urine Ketones NEGATIVE NEGATIVE Urine Nitrite NEGATIVE NEGATIVE Urine Bilirubin NEGATIVE NEGATIVE Urine Urobilinogen 1.0 < = 1.0 MG/DL Urine Leukocyte Esterase NEGATIVE NEGATIVE Urine RBC (Auto) NEGATIVE NEGATIVE Urine RBC NONE /HPF Urine WBC 0-2 /HPF Urine Squamous Epithelial Cells 0-2 /HPF Urine Renal Epithelial Cells NONE /HPF Urine Crystals NONE /LPF Urine Bacteria NEGATIVE /HPF Urine Casts NONE /LPF Urine Mucus NEGATIVE /LPF Urine Culture Indicated NO Urine Opiates Screen NEGATIVE NEGATIVE Urine Oxycodone Screen NEGATIVE NEGATIVE Urine Methadone Screen NEGATIVE NEGATIVE Urine Propoxyphene Screen NEGATIVE NEGATIVE Urine Barbiturates Screen NEGATIVE NEGATIVE Ur Tricyclic Antidepressants Screen NEGATIVE NEGATIVE Urine Phencyclidine Screen NEGATIVE NEGATIVE Urine Amphetamines Screen NEGATIVE NEGATIVE Urine Methamphetamines Screen NEGATIVE NEGATIVE Urine Benzodiazepines Screen NEGATIVE NEGATIVE Urine Cocaine Screen NEGATIVE NEGATIVE Urine Cannabinoids Screen NEGATIVE NEGATIVE SARS-CoV-2 RNA (RT-PCR) Not Detected Not Detecte My Orders Orders - HEATH CAMARILLO DO Ed Iv/Invasive Line Start (06/26/21 19:12) Ekg Tracing (06/26/21 19:12) O2 (06/26/21 19:12) Monitor-Rhythm Ecg Trace Only (06/26/21 19:12) Cbc With Automated Diff (06/26/21 19:12) Magnesium (06/26/21 19:12) Chest 1 View, Ap/Pa Only (06/26/21 19:12) Ekg Tracing (06/26/21 19:12) Comprehensive Metabolic Panel (06/26/21 19:12) Myoglobin Serum (06/26/21 19:12) Protime With Inr (06/26/21 19:12) Partial Thromboplastin Time (06/26/21 19:12) O2 (06/26/21 19:12) Ed Iv/Invasive Line Start (06/26/21 19:12) Creatine Kinase (06/26/21 19:12) Creatine Kinase Mb (06/26/21 19:12) Lipase (06/26/21 19:12) Amylase (06/26/21 19:12) BNP (06/26/21 19:12) Troponin I (06/26/21 19:12) Nitroglycerin 0.4 Mg Btl 25's (Nitrostat (06/26/21 19:15) Aspirin Chewable Tablet (Baby Aspirin Ch (06/26/21 19:15) Drug Screen Stat (Urine) (06/26/21 19:12) Hcg,Qualitative Serum (06/26/21 19:12) Ua Culture If Indicated (06/26/21 19:12) Procalcitonin (Pct) (06/26/21 19:15) Hs C Reactive Protein (06/26/21 19:15) Covid 19 Inhouse Test (06/26/21 19:15) Ketorolac Injection (Toradol Injection) (06/26/21 20:00) Ondansetron Injection (Zofran Injectio (06/26/21 20:00) Hcg,Quantitative (06/26/21 20:02) Fentanyl Inj (Sublimaze Injection) (06/26/21 21:00) Medications Given in ED Current Medications Medications Dose Ordered Sig/Sara Route Start Time Stop Time Status Last Admin Dose Admin Fentanyl Citrate 50 mcg ONCE ONCE IVP 06/26/21 21:00 06/26/21 21:01 DC 06/26/21 21:00 50 MCG Ondansetron HCl 4 mg ONCE ONCE IVP 06/26/21 20:00 06/26/21 20:01 DC 06/26/21 20:06 4 MG Vital Signs/I&O 06/26/21 19:17 Temp 36.9 Pulse 81 Resp 20 B/P (MAP) 105/65 (78) Pulse Ox 98 O2 Delivery Room Air Blood Pressure Mean: 78 Progress Progress Note : Progress Note PLACED IN ISOLATION ROOM PPE WORN AT ALL TIMES COVID-19 TESTING PERFORMED NO COUGH NO FEVER NO DYSPNEA GIVEN FENTANYL FOR PAIN WITH IMPROVEMENT NO DETERIORATION IN PT'S CONDITION DURING ER STAY Initial ECG Impression Date: Jun 26, 2021 Initial ECG Impression Time: 19:17 Initial ECG Rate: 78 Initial ECG Rhythm: Normal Sinus Initial ECG Impression: Nonspecific Changes (OLD INFERIOR Q WAVES) Initial ECG Comparisson: Unchanged Diagnostic Imaging Comments CXR--PER RADIOLOGIST REPORT AT 2052 COMPARISON: 05/25/2021. FINDINGS: Sternotomy. Normal heart size and central pulmonary vascularity. The previously seen pulmonary vascular congestion has improved. No focal pulmonary opacity. No pleural effusion or pneumothorax. No acute osseous finding. IMPRESSION: No acute cardiopulmonary finding. Reviewed: Reviewed by Me Departure Communication (Admissions) 2058--SPOKE WITH DR. LEBRON, HOSPITALIST, ACCEPTS PT FOR ADMIT 2100--SPOKE WITH DR. ROBLES, CREDIT CASHIER, ORDERS NOTED. Impression Primary Impression: Chest pain Additional Impression: CAD (coronary artery disease) Disposition: ADMITTED INPATIENT Condition: Stable Admissions Decision to Admit Reason: Admit from ER (General) Decision to Admit/Date: Jun 26, 2021 Time/Decision to Admit Time: 21:00 Departure-Patient Inst. Referrals: EDWAR LOBO DO (PCP/Family) Primary Care Physician Scripts Famotidine (Famotidine) 20 Mg Tablet 20 MG PO BID PRN for INDIGESTION, #60 TAB Prov: MITCHELL LEBRON MD 06/27/21 Pantoprazole Sodium (Pantoprazole Sodium) 40 Mg Tablet. 40 MG PO DAILY, #30 TAB Prov: MITCHELL LEBRON MD 06/27/21 HEATH CAMARILLO DO Jun 26, 2021 19:38
[2021-06-26 19:44] LABS: BACTERIA,URINE NEGATIVE /HPF; SQUAMOUS EPITHELIAL CELL,UR 0-2 /HPF; WBC,URINE 0-2 /HPF
[2021-06-26 19:46] LABS: INR 0.9 (0.8-1.4); PROTHROMBIN TIME PATIENT 12.2 SEC (12.2-14.7)
[2021-06-26 19:51] LABS: ALBUMIN 3.8 GM/DL (3.2-4.5); BILIRUBIN,TOTAL 0.4 MG/DL (0.1-1.0); CALCIUM 9.4 MG/DL (8.5-10.1); CREATINE KINASE MB 1.1 NG/ML (<6.6); CREATININE SERUM 0.9 MG/DL (0.60-1.30); MAGNESIUM 1.8 MG/DL (1.6-2.4); POTASSIUM 4.3 MMOL/L (3.6-5.0); TOTAL PROTEIN 6.8 GM/DL (6.4-8.2)
[2021-06-26 19:55] LABS: AMPHETAMINE SCREEN, URINE NEGATIVE (NEGATIVE); BARBITURATE SCREEN URINE NEGATIVE (NEGATIVE); BENZODIAZEPINES SCREEN URINE NEGATIVE (NEGATIVE); CANNABINOID SCREEN, URINE NEGATIVE (NEGATIVE); COCAINE SCREEN URINE NEGATIVE (NEGATIVE); METHADONE STAT NEGATIVE (NEGATIVE); METHAMPHETAMINE SCREEN URINE S NEGATIVE (NEGATIVE); OPIATE SCREEN URINE NEGATIVE (NEGATIVE); OXYCODONE STAT NEGATIVE (NEGATIVE); PROPOXYPHENE STAT NEGATIVE (NEGATIVE); TRICYCLIC ANTIDEPRESSANTS SCRE NEGATIVE (NEGATIVE)
[2021-06-26] MEDS ORDERED: KETOROLAC 30 MG/ML VIAL IVP ONE (20:00)
[2021-06-26] MEDS ORDERED: ONDANSETRON 4 MG/2 ML (SDV) Z0FRAN IVP ONE (20:00)
--- NOTE | 2021-06-26 20:53 | Diagnostic Imaging Report ---
EXAM: Chest 1 view, AP/PA only. INDICATION: Chest pain. COMPARISON: 05/25/2021. FINDINGS: Sternotomy. Normal heart size and central pulmonary vascularity. The previously seen pulmonary vascular congestion has improved. No focal pulmonary opacity. No pleural effusion or pneumothorax. No acute osseous finding. IMPRESSION: No acute cardiopulmonary finding. Dictated by: Dictated on workstation # [id number]
[2021-06-26] MEDS ORDERED: fentaNYL INJ 100 MCG/2 ML AMP IVP ONE (21:00)
[2021-06-26] MEDS: morphine INJ 4 MG/ML 1 ML (VIAL/SYRINGE) IVP PRN (22:17)
[2021-06-26] MEDS: ONDANSETRON 4 MG/2 ML (SDV) Z0FRAN IVP PRN (22:17)
[2021-06-26] MEDS: CATHETER FLUSH 10 ML SYR IV SCH (22:30)
[2021-06-27] VITALS: BP 91/63
[2021-06-27] MEDS: morphine INJ 4 MG/ML 1 ML (VIAL/SYRINGE) IVP PRN ×5 (00:10→08:44)
[2021-06-27] MEDS: ONDANSETRON 4 MG/2 ML (SDV) Z0FRAN IVP PRN ×2 (01:57→06:09)
[2021-06-27 02:00] VITALS: BP 115/73
[2021-06-27 04:16] VITALS: BP 96/66
[2021-06-27] MEDS: CATHETER FLUSH 10 ML SYR IV SCH (06:08)
[2021-06-27 06:16] LABS: BASOPHILS # (AUTO) 0.1 10^3/uL (0.0-0.1); BASOPHILS % (AUTO) 1 % (0-10); EOSINOPHILS # (AUTO) 0.8 10^3/uL (0.0-0.3); EOSINOPHILS % (AUTO) 12 % (0-10); HEMATOCRIT 41 % (35-52); HEMOGLOBIN 13.9 g/dL (11.5-16.0); LYMPHOCYTES # (AUTO) 3.3 10^3/uL (1.0-4.0); LYMPHOCYTES % (AUTO) 49 % (12-44); MEAN CORPUSCULAR HEMOGLOBIN 33 pg (25-34); MEAN CORPUSCULAR HGB CONC 34 g/dL (32-36); MEAN CORPUSCULAR VOLUME 96 fL (80-99); MEAN PLATELET VOLUME 10.3 fL (9.0-12.2); MONOCYTES # (AUTO) 0.5 10^3/uL (0.0-1.0); MONOCYTES % (AUTO) 8 % (0-12); NEUTROPHILS % (AUTO) 29 % (42-75); PLATELET COUNT 259 10^3/uL (130-400); WHITE BLOOD COUNT 6.7 10^3/uL (4.3-11.0)
[2021-06-27] MEDS: inSUlin ASPART (NovoLOG) 1 UNIT/0.01 ML (CHARGE PER UNIT) SC SCH ×2 (06:17→10:59)
[2021-06-27 06:40] LABS: BUN/CREATININE RATIO 18; CALCIUM 9.5 MG/DL (8.5-10.1); CARBON DIOXIDE 19 MMOL/L (21-32); CHLORIDE 108 MMOL/L (98-107); CHOLESTEROL 218 MG/DL (< 200); CREATININE SERUM 1.02 MG/DL (0.60-1.30); GFR ESTIMATED 58; GLUCOSE 149 MG/DL (70-105); HDL CHOLESTEROL 35 MG/DL (40-60); POTASSIUM 4.4 MMOL/L (3.6-5.0); SODIUM 141 MMOL/L (135-145); TRIGLYCERIDES 301 MG/DL (<150); VLDL CHOLESTEROL 60 MG/DL (5-40)
[2021-06-27 08:09] VITALS: BP 110/83
--- NOTE | 2021-06-27 08:45 | Consultation-Cardiology ---
HPI-Cardiology Cardiology Consultation: Date of Consultation 06/27/21 Time Seen by a Provider: 08:15 Date of Admission 06-26-21 Attending Physician Willem Chamorro DO Admitting Physician Willem Chamorro DO Consulting Physician Karie Aguilar MD HPI: Chief Complaint: Chest pain Ms. Da Silva is a 46 yr old female admitted to 512 from the ED with c/o new onset chest pressure which started while at rest. She describes it as a pressure that radiates across her chest. It is not r/t activity or emotional stress. It does not change with activity or rest. She states the pressure is lasting for several hours. No assoc symptoms. No c/o palpitations. No c/o syncope or near syncope. She states she has not missed any doses of her medications. She reports she is not smoking. No c/o LE swelling. She has chronic intermittent episodes of nausea and diarrhea which are unchanged. She is currently no reporting any chest pain. Review of Systems-Cardiology Review of Systems Constitutional: No chills, No fever, No malaise Eyes: No vision change Ears/Nose/Throat: No epistaxis, No recent hearing loss Respiratory: As described under HPI Cardiovascular: As described under HPI Gastrointestinal: As described under HPI Genitourinary: No dysuria, No hematuria Musculoskeletal: joint pain Skin: No rash on exposed areas, No ulcerations on exposed areas Psychiatric/Neurological: anxiety; No seizure, No focal weakness, No syncope Hematologic: No bleeding abnormalities ELD-Chvxrd-Lzlsax Hx Patient Social History Smoking Status: Current Everyday Smoker 2nd Hand Smoke Exposure: No Have you traveled recently?: No Alcohol Use?: No Tobacco type used: Cigarettes Immunizations Up To Date Tetanus Booster (TDap): More than 5yrs Date of Pneumonia Vaccine: Jun 20, 2013 Date of Influenza Vaccine: May 20, 2021 Past Medical History PMH As described under Assessment. Family Medical History Family Medical History: Has family h/o of early CAD Allergies and Home Medications Allergies Coded Allergies: Penicillins (Verified Allergy, Unknown, 05/16/21) Sulfa (Sulfonamide Antibiotics) (Verified Allergy, Unknown, 05/16/21) naproxen (Verified Allergy, Unknown, HIVES, NAUSEA--can take ibuprofen, 05/16/21) Patient Home Medication List Albuterol Sulfate (Proair Hfa) 1 Puff Puff, 2 PUFF IH Q4H PRN for SHORTNESS OF BREATH, (Reported) Entered as Reported by: SONJA OH on 05/26/21 1059 Aspirin (Aspirin EC) 81 Mg Tablet.dr, 81 MG PO DAILY, (Reported) Entered as Reported by: SONJA OH on 05/24/21 0959 Atorvastatin Calcium (Atorvastatin Calcium) 40 Mg Tablet, 40 MG PO DAILY, (Reported) Entered as Reported by: SONJA OH on 05/24/21 09 Clopidogrel Bisulfate (Plavix) 75 Mg Tablet, 75 MG PO DAILY, (Reported) Entered as Reported by: SONJA OH on 05/26/21 105 Fluticasone/Salmeterol (Fluticasone-Salmeterol 113-14) 1 Each Aer.pow.ba, 0 EACH IH RTBID Prescribed by: MITCHELL LEBRON on 05/27/21 09 Metoprolol Tartrate (Metoprolol Tartrate) 25 Mg Tablet, 12.5 MG PO BID, (Reported) Entered as Reported by: SONJA OH on 05/26/21 105 Prednisone (Prednisone) 20 Mg Tab, 40 MG PO DAILY Prescribed by: MITCHELL LEBRON on 05/27/21 0934 Tramadol HCl (Tramadol HCl) 50 Mg Tablet, 50 MG PO Q6H PRN for PAIN Prescribed by: HOANG MINAYA on 06/04/21 1855 Physical Exam-Cardiology Physical Exam Vital Signs/I&O 06/26/21 06/26/21 06/26/21 06/26/21 21:48 21:53 22:00 22:15 Temp 36.9 36.2 Pulse 68 74 72 77 Resp 18 20 B/P (MAP) 98/70 125/80 (95) 100/66 (77) Pulse Ox 98 98 97 O2 Delivery Room Air Room Air Room Air 06/26/21 06/26/21 06/26/21 06/26/21 22:15 22:30 22:45 22:56 Pulse 73 68 70 B/P (MAP) 107/63 (77) 85/62 (67) 98/67 (77) Pulse Ox 97 95 95 O2 Delivery Room Air Room Air Room Air Room Air 06/26/21 06/26/21 06/27/21 06/27/21 23:00 23:15 00:00 01:00 Pulse 71 70 71 70 B/P (MAP) 87/68 (74) 97/68 (77) 91/63 (72) Pulse Ox 93 93 93 O2 Delivery Room Air Room Air Room Air 06/27/21 06/27/21 06/27/21 06/27/21 02:00 04:16 07:00 07:21 Pulse 74 69 74 B/P (MAP) 115/73 (87) 96/66 (76) Pulse Ox 94 92 93 O2 Delivery Room Air Room Air Room Air 06/27/21 06/27/21 08:09 08:11 Temp 36.3 Pulse 78 Resp 18 B/P (MAP) 110/83 (92) Pulse Ox 93 O2 Delivery Room Air Room Air Capillary Refill : Less Than 3 Seconds Constitutional: AAO x 3, well-developed, well-nourished HEENT: PERRL, hearing is well preserved Neck: No carotid bruit; carotid pulses are 2 + bilaterally Respiratory: No accessory muscle use, No respiratory distress; chest expansion is symmetric, chest is bilaterally symmetric, lungs clear to auscultation Cardiovascular: regular rate-rhythm; No JVD; S1 and S2 Gastrointestinal: No tender; soft, round, audible bowel sounds Extremities: no lower extremity edema bilateral Neurologic/Psychiatric: grossly intact (moves all extremities) Skin: No rash on exposed areas, No ulcerations on exposed areas Data Review Labs Laboratory Tests 06/26/21 19:10: White Blood Count 9.8, Red Blood Count 4.19, Hemoglobin 14.0, Hematocrit 40, Mean Corpuscular Volume 95, Mean Corpuscular Hemoglobin 33, Mean Corpuscular Hemoglobin Concent 35, Red Cell Distribution Width 12.1, Platelet Count 279, Mean Platelet Volume 10.2, Immature Granulocyte % (Auto) 0, Neutrophils (%) (Auto) 34L, Lymphocytes (%) (Auto) 47H, Monocytes (%) (Auto) 7, Eosinophils (%) (Auto) 11H, Basophils (%) (Auto) 1, Neutrophils # (Auto) 3.3, Lymphocytes # (Auto) 4.6H, Monocytes # (Auto) 0.7, Eosinophils # (Auto) 1.0H, Basophils # (Auto) 0.1, Immature Granulocyte # (Auto) 0.0, Prothrombin Time 12.2, INR Comment 0.9, Activated Partial Thromboplast Time 31, Sodium Level 138, Potassium Level 4.3, Chloride Level 106, Carbon Dioxide Level 19L, Anion Gap 13, Blood Urea Nitrogen 16, Creatinine 0.90, Estimat Glomerular Filtration Rate 67, BUN/C reatinine Ratio 18, Glucose Level 152H, Calcium Level 9.4, Corrected Calcium 9. 6, Magnesium Level 1.8, Total Bilirubin 0.4, Aspartate Amino Transf (AST/SGOT) 13, Alanine Aminotransferase (ALT/SGPT) 15, Alkaline Phosphatase 104, Total Creatine Kinase 48, Creatine Kinase MB 1.1, Myoglobin 23.5, Troponin I < 0.028, C-Reactive Protein High Sensitivity 0.07, B-Type Natriuretic Peptide 55.0, Total Protein 6.8, Albumin 3.8, Amylase Level 52, Lipase 38, Procalcitonin 0.02, Human Chorionic Gonadotropin, Quant 5, Serum Test, Qualitative POSITIVE 06/26/21 19:20: Urine Color YELLOW, Urine Clarity CLEAR, Urine pH 6.0, Urine Specific [place] 1 .025H, Urine Protein NEGATIVE, Urine Glucose (UA) NEGATIVE, Urine Ketones NEGATIVE, Urine Nitrite NEGATIVE, Urine Bilirubin NEGATIVE, Urine Urobilinogen 1.0, Urine Leukocyte Esterase NEGATIVE, Urine RBC (Auto) NEGATIVE, Urine RBC NONE, Urine WBC 0-2, Urine Squamous Epithelial Cells 0-2, Urine Renal Epithelial Cells NONE, Urine Crystals NONE, Urine Bacteria NEGATIVE, Urine Casts NONE, Uri ne Mucus NEGATIVE, Urine Culture Indicated NO, Urine Opiates Screen NEGATIVE, Urine Oxycodone Screen NEGATIVE, Urine Methadone Screen NEGATIVE, Urine Propoxyphene Screen NEGATIVE, Urine Barbiturates Screen NEGATIVE, Ur Tricyclic Antidepressants Screen NEGATIVE, Urine Phencyclidine Screen NEGATIVE, Urine Amphetamines Screen NEGATIVE, Urine Methamphetamines Screen NEGATIVE, Urine Benzodiazepines Screen NEGATIVE, Urine Cocaine Screen NEGATIVE, Urine Cannabinoids Screen NEGATIVE, SARS-CoV-2 RNA (RT-PCR) Not Detected 06/27/21 06:07: White Blood Count 6.7, Red Blood Count 4.22, Hemoglobin 13.9, Hematocrit 41, Mean Corpuscular Volume 96, Mean Corpuscular Hemoglobin 33, Mean Corpuscular Hemoglobin Concent 34, Red Cell Distribution Width 12.2, Platelet Count 259, Mean Platelet Volume 10.3, Immature Granulocyte % (Auto) 0, Neutrophils (%) (Auto) 29L, Lymphocytes (%) (Auto) 49H, Monocytes (%) (Auto) 8, Eosinophils (%) (Auto) 12H, Basophils (%) (Auto) 1, Neutrophils # (Auto) 2.0, Lymphocytes # (Auto) 3.3, Monocytes # (Auto) 0.5, Eosinophils # (Auto) 0.8H, Basophils # (Auto) 0.1, Immature Granulocyte # (Auto) 0.0, Sodium Level 141, Potassium Level 4.4, Chloride Level 108H, Carbon Dioxide Level 19L, Anion Gap 14, Blood Urea Nitrogen 18, Creatinine 1.02, Estimat Glomerular Filtration Rate 58, BUN/Creatinine Ratio 18, Glucose Level 149H, Calcium Level 9.5, Troponin I < 0.028, Human Chorionic Gonadotropin, Quant < 5, Triglycerides Level 301H, Cholesterol Level 218H, LDL Cholesterol Direct 153H, VLDL Cholesterol 60H, HDL Cholesterol 35L Laboratory Tests 06/26/21 19:10 06/27/21 06:07 Radiology NAME: WAN DA SILVA [facility] REC#: [id number] PT STATUS: ADM IN : 1975 PHYSICIAN: HEATH CAMARILLO DO ADMIT DATE: 06/26/21/[facility] Signed Date of Exam:06/26/21 CHEST 1 VIEW, AP/PA ONLY EXAM: Chest 1 view, AP/PA only. INDICATION: Chest pain. COMPARISON: 05/25/2021. FINDINGS: Sternotomy. Normal heart size and central pulmonary vascularity. The previously seen pulmonary vascular congestion has improved. No focal pulmonary opacity. No pleural effusion or pneumothorax. No acute osseous finding. IMPRESSION: No acute cardiopulmonary finding. Dictated by: Dictated on workstation # [id number] Dict: 06/26/212048 Trans: 06/26/212306 [facility] [id number] Interpreted by: WILVER BUNDY MD Electronically signed by: WILVER BUNDY MD 06/26/212306 ECG Impression ECG Initial ECG Rhythm: Normal Sinus A/P-Cardiology Assessment/Admission Diagnosis Chest pain of undetermined etiology - no evidence of ACS thus far COPD - managed by PCP CAD: - H/o CABG in 2009. -Last PR on 04/23/20 due to mid-vessel, instent occlusion of RCA, treated with ballon angioplasty and stenting with Xience Radha 2.25x33 stent that was post- dilated to 3 mm kevin (Dr Bartlett). LAD had mild instent restenosis in prox LAD, LCX had patent stent, LVEDP 32 mmHg, preserved LV function, patent SVG to a diag, atretic LOPEZ to LAD. - MPI of 05-17-21: Inferior wall myocardial infarction with a small amount of ted-infarct ischemia. Inferior wall hypokinesis. Well preserved global left ventricular systolic function with ejection fraction of 54%. - Echo of 04/23/20: LVEF 55-60%, mild dil LA,mild to mod MR, PASP 25-30 mmHg - Last card cath on 05/24/21: patent stents in the L cor system, occluded/atretic LOPEZ to LAD, patent SVG to an OM with 70% ostial stenosis that was successfully stented on 05/24/21 with Radha 2.5 x 18 mm stent (deployed at 20 [place]), midvessel instent occlusion of RCA and 90% proximal instent stenosis of RCA, prox RCA stenosis reduced to 50% with balloon angioplasty, distal RCA occlusion could not be opened up, LVEDP 17 mmHg GI - Mod hiatal hernia seen on CT of chest on 02-03-21 - H/o erosive esophagitis Abnormal ECG - ECG of 05/24/20 shows NSR, old IMI Tobaccoism - cessation advised Hyperlipidemia - being treated with atorvastatin - managed by PCP History of maturity onset diabetes mellitus. - managed by PCP Obesity - with a body mass index of approx 36 Body habitus and daytime somnolence is suggestive of REINA - sleep studies advised Discussion and Recomendations Chest discomfort of undetermined etiology - no evidence of ACS Continue ASA and Plavix d/t h/o CAD with recent stenting Start PPI d/t h/o GERD and erosive esophagitis Monitor lab closely Further recs will be based on her hospital course We would like to thank medical services for this consult Clinical Quality Measures AMI/AHF: ASA po Prior to arrival: Yes DAVID ERNST Jun 27, 2021 08:44
--- NOTE | 2021-06-27 08:54 | History & Physical-Hospitalist ---
History of Present Illness HPI/Chief Complaint Patient is a 46-year-old female well-known to me from multiple previous admissions who presented to the emergency department due to chest pain. She has a longstanding history of coronary artery disease that necessitated CABG and then subsequent stenting of bypasses. Her last cath and intervention was roughly 1 month ago. She reports compliance with her antiplatelet therapy. She also reports that she has stopped smoking since that time. Despite this yesterday she developed chest pain with mild shortness of breath. The pain was in the center of her chest and did not radiate. She was also sick to her stomach and felt sweaty. She states it felt similar to previous episodes when she has needed a stent prompting her to seek evaluation in the emergency department. She called EMS and was given aspirin and nitro without resolution of symptoms. Troponin on arrival was negative as was EKG. This morning she states her pain is improved though still present. Source: patient Date Seen 06/27/21 Time Seen by a Provider: 08:46 Attending Physician Willem Chamorro DO PCP Willem Chamorro DO Referring Physician Date of Admission Jun 26, 2021 at 21:00 Home Medications & Allergies Home Medications Reviewed patient Home Medication Reconciliation performed by pharmacy medication reconciliations nuclear plant instrument technician and/or nursing. Patients Allergies have been reviewed. Allergies Allergies Coded Allergies Penicillins (Verified Allergy, Unknown, 05/16/21) Sulfa (Sulfonamide Antibiotics) (Verified Allergy, Unknown, 05/16/21) naproxen (Verified Allergy, Unknown, HIVES, NAUSEA--can take ibuprofen, 05/16/21) Past Yrxxfqb-Wuvffz-Nacief Hx Patient Social History Tobacco Use?: No Tobacco type used: Cigarettes Smoking Status: Former Smoker (quit 05/2021) Use of E-Cig and/or Vaping dev: No Substance use?: No Alcohol Use?: No Immunizations Up To Date Date of Influenza Vaccine: May 20, 2021 First/Initial COVID19 Vaccinat: not vaccinated Second COVID19 Vaccination Mark: not vaccinated Tetanus Booster (TDap): More Than 5 Years Date of Pneumonia Vaccine: Jun 20, 2013 Seasonal Allergies Seasonal Allergies: No Current Status Advance Directives: No Primary Language: Greenlandic Preferred Spoken Language: Greenlandic Implanted or Applied Medical D: Stents Past Medical History Surgeries: Abdominal, Adenoidectomy, Cardiac, CABG, Coronary Stent, Ear Surgery, Gallbladder, Orthopedic, Tonsillectomy, Tracheostomy Asthma, Chronic Bronchitis, COPD Coronary Artery Disease, Deep Vein Thrombosis, Heart Attack, High Cholesterol, Hypertension Headaches /Migraines, Seizure Disorder Sexually Transmitted Disease: Yes (HERPES) Gastroesophageal Reflux, Esophagitis, Hiatal Hernia, Gall Bladder Disease Arthritis Hypothyroidsim, Diabetes, Non-Insulin dep Chronic Ear Infection Hearing Impairment: Hard of Hearing Cervical Did You Recieve Any Treatments: Yes What Type of Treatment Did You: Surgical Intervention Sleep Difficulties, Anxiety, Suicide Attempts, Depression Blood Disorders: No Adverse Reaction/Blood Tranf: No See Problem List Family Medical History Reviewed Nursing Family Hx No Pertinent Family Hx ADDITIONAL PAST MEDICAL AND PROCEDURAL HISTORY: -FABRICE FUNDOPLICATION -CHOLECYSTECTOMY -TONSILLECTOMY/ADENOIDECTOMY -TRACHEOSTOMY/LATER REMOVAL -PT HAD NSTEMI AND WAS ADMITTED 04/22/20-04/24/20, HAD CARDIAC CATH 04/23/20 AND HAD STENT X 1 TO RCA -PT HAS PREVIOUSLY HAD A CABG IN 2009, MULTIPLE STENTS TO RCA, AND STENT TO CIRCUMFLEX IN THE PAST. CARDIAC CATH 05/24/[address] ROBLES: CONCLUSIONS: 1. Coronary artery disease as detailed above. The left anterior descending and left circumflex arteries have patent stents. An obtuse marginal branch of the left circumflex has a patent aortocoronary graft, this graft had 70% ostial stenosis and was successfully stented with Radha 2.5 x 18 mm stent, deployed at 20 atmospheres. The right coronary artery had 90% proximal stenosis, which went to 50% stenosis following balloon angioplasty. The mid and distal right coronary artery have in-stent occlusion. This is a very long segment of occlusion and attempts at percutaneous intervention to this portion of the vessel were unsuccessful. 2. Mild elevation of left ventricular end-diastolic pressure. DISCUSSION AND RECOMMENDATIONS: Risk factor modification has been advised. Dual antiplatelet therapy is being continued. Because of low blood pressure, she is not a suitable candidate for beta blockers or MORRO inhibitors or angiotensin receptor blockers. Statin therapy is being continued. Review of Systems Constitutional: no symptoms reported EENTM: no symptoms reported Respiratory: No cough; short of breath Cardiovascular: chest pain; No edema; Hx of Intervention; No syncope Gastrointestinal: No abdominal pain; nausea; No vomiting Genitourinary: no symptoms reported Musculoskeletal: no symptoms reported Skin: no symptoms reported Psychiatric/Neurological: No Symptoms Reported Physical Exam Physical Exam Vital Signs Vital Signs - First Documented 06/26/21 19:17 Temp 36.9 Pulse 81 Resp 20 B/P (MAP) 105/65 (78) Pulse Ox 98 O2 Delivery Room Air Capillary Refill : Less Than 3 Seconds Height, Weight, BMI Height: 5'8.00" Weight: 189lbs. 0.0oz. 85.594133pk; 32.95 BMI Method:Stated General Appearance: No Apparent Distress, Chronically ill HEENT: PERRL/EOMI, Moist Mucous Membranes Neck: Full Range of Motion, Supple Respiratory: Lungs Clear, No Respiratory Distress Cardiovascular: Regular Rate, Rhythm, No Murmur Extremity: No Calf Tenderness, No Pedal Edema Neurologic/Psychiatric: Alert, Oriented x3, Normal Mood/Affect Results Results/Procedures Labs Laboratory Tests 06/26/21 19:10 06/27/21 06:07 Patient resulted labs reviewed. Imaging: Reviewed Imaging Report Imaging [facility] [place] NAME: WAN DA SILVA Ren [facility] REC#: [id number] PT STATUS: ADM IN : 1975 PHYSICIAN: HEATH CAMARILLO DO ADMIT DATE: 06/26/21/[facility] Signed Date of Exam:06/26/21 CHEST 1 VIEW, AP/PA ONLY EXAM: Chest 1 view, AP/PA only. INDICATION: Chest pain. COMPARISON: 05/25/2021. FINDINGS: Sternotomy. Normal heart size and central pulmonary vascularity. The previously seen pulmonary vascular congestion has improved. No focal pulmonary opacity. No pleural effusion or pneumothorax. No acute osseous finding. IMPRESSION: No acute cardiopulmonary finding. Dictated by: Dictated on workstation # [id number] Dict: 06/26/212048 Trans: 06/26/212306 [facility] [phone] Interpreted by: WILVER BUNDY MD Electronically signed by: WILVER BUNDY MD 06/26/212306 Assessment/Plan Admission Diagnosis Unstable angina Admission Status: Inpatient Order (span 2 midnights) Reason for Inpatient Admission: see below Assessment and Plan Unstable angina CAD s/p CABG HTN HLD Complex case given history of recurrent disease, cardiology consult and apprecaite recs Keep NPO for now Does not appear to be on oral nitrate so could consider that Telemetry Continue home meds COPD- no acute exacerbation Continue home meds when med rec done NIDDMII Continue home meds Fasting BS 149 SSI DVT ppx: Lovenox Diagnosis/Problems Diagnosis/Problems (1) CAD (coronary artery disease) Status: Acute Qualifiers: Coronary Disease-Associated Artery/Lesion type: bypass graft [place] vs. transplanted heart: [place] heart Associated angina: with unstable angina Qualified Codes: I25.700 - Atherosclerosis of coronary artery bypass graft(s), unspecified, with unstable angina pectoris (2) Chest pain Status: Acute (3) S/P CABG (coronary artery bypass graft) Status: Chronic (4) T2DM (type 2 diabetes mellitus) Status: Chronic (5) HLD (hyperlipidemia) Status: Chronic Clinical Quality Measures AMI/AHF: ASA po Prior to arrival: Yes MITCHELL LEBRON MD Jun 27, 2021 08:54
[2021-06-27] MEDS ORDERED: ASPIRIN 81 MG CHEW (CHILDREN'S ASA) PO SCH (09:00)
[2021-06-27] MEDS ORDERED: FAMOTIDINE 20 MG (PEPCID) TABLET PO PRN (09:00)
[2021-06-27] MEDS ORDERED: PANTOPRAZOLE 40 MG (PROTONIX) VIAL IV ONE (09:00)
[2021-06-27] MEDS ORDERED: CLOPIDOGREL 75 MG (PLAVIX) TABLET PO SCH (09:00)
[2021-06-27] MEDS ORDERED: ARIP15TA4 PO (10:36)
[2021-06-27] MEDS ORDERED: HYDR-700 PO (10:36)
[2021-06-27] MEDS ORDERED: SERT-414 PO (10:36)
[2021-06-27] MEDS ORDERED: IBUP-2473 PO (10:38)
--- NOTE | 2021-06-27 11:12 | Discharge Inst-Simple/Standard ---
Discharge Inst-Standard Patient Instructions/Follow Up Plan of Care/Instructions/FU: Please continue take your medications as written. Please follow-up with Dr. Sheehan and Dr. Chamorro to follow-up this hospital stay. Activity as Tolerated: Yes Discharge Diet: Avoid Fatty Foods, Cardiac Diet Return to The Hospital For: Chest pain, shortness of breath, abdominal pain, nausea, if you feel you are getting worse. MITCHELL LEBRON MD Jun 27, 2021 11:12
[2021-06-27] MEDS ORDERED: FAMO20TA5 PO (11:27)
[2021-06-27] MEDS ORDERED: PANT40TA52 PO (11:27)
[2021-06-27 12:17] VITALS: BP 118/90
--- NOTE | 2021-06-27 17:10 | Consultation-Cardiology ---
HPI-Cardiology Cardiology Consultation: Date of Consultation 06/27/21 Time Seen by a Provider: 09:00 Date of Admission Attending Physician Willem Chamorro DO Admitting Physician Dr Lebron Consulting Physician JIMENA ROBLES MD, MA, FACP, FACC, FSCAI, CCDS HPI: Chief Complaint: Chest pain Ms. Champagne is a 46 yr old female admitted to 512 from the ED with c/o new onset chest pressure which started while at rest. She describes it as a pressure that radiates across her chest. It is not r/t activity or emotional stress. It does not change with activity or rest. She states the pressure is lasting for several hours. No assoc symptoms. No c/o palpitations. No c/o syncope or near syncope. She states she has not missed any doses of her medications. She reports she is not smoking. No c/o LE swelling. She has chronic intermittent episodes of nausea and diarrhea which are unchanged. She is currently no reporting any chest pain. Review of Systems-Cardiology Review of Systems Constitutional: No chills, No fever, No malaise Eyes: No vision change Ears/Nose/Throat: No epistaxis, No recent hearing loss Respiratory: As described under HPI Cardiovascular: As described under HPI Gastrointestinal: As described under HPI Genitourinary: No dysuria, No hematuria Musculoskeletal: joint pain Skin: No rash on exposed areas, No ulcerations on exposed areas Psychiatric/Neurological: anxiety; No seizure, No focal weakness, No syncope Hematologic: No bleeding abnormalities MZQ-Mnhiil-Wapcch Hx Patient Social History Smoking Status: Former Smoker (quit 05/2021) 2nd Hand Smoke Exposure: No Have you traveled recently?: No Alcohol Use?: No Tobacco type used: Cigarettes Immunizations Up To Date Tetanus Booster (TDap): More than 5yrs Date of Pneumonia Vaccine: Jun 20, 2013 Date of Influenza Vaccine: May 20, 2021 Past Medical History PMH As described under Assessment. Family Medical History Family Medical History: Has family h/o of early CAD Allergies and Home Medications Allergies Coded Allergies: Penicillins (Verified Allergy, Unknown, 05/16/21) Sulfa (Sulfonamide Antibiotics) (Verified Allergy, Unknown, 05/16/21) naproxen (Verified Allergy, Unknown, HIVES, NAUSEA--can take ibuprofen, 05/16/21) Patient Home Medication List Home Medication List Reviewed: Yes Albuterol Sulfate (Proair Hfa) 1 Puff Puff, 2 PUFF IH Q4H PRN for SHORTNESS OF BREATH, (Reported) Entered as Reported by: SONJA OH on 05/26/211058 Last Action: Reviewed Aripiprazole (Abilify) 15 Mg Tablet, 7.5 MG PO DAILY, (Reported) Entered as Reported by: SONJA OH on 06/27/211035 Last Action: Reviewed Aspirin (Aspirin EC) 81 Mg Tablet.dr, 81 MG PO DAILY, (Reported) Entered as Reported by: SONJA OH on 05/24/21958 Last Action: Reviewed Atorvastatin Calcium (Atorvastatin Calcium) 40 Mg Tablet, 40 MG PO HS, (Reported) Entered as Reported by: SONJA OH on 05/24/21958 Last Action: Reviewed Clopidogrel Bisulfate (Plavix) 75 Mg Tablet, 75 MG PO DAILY, (Reported) Entered as Reported by: SONJA OH on 05/26/211058 Last Action: Reviewed Famotidine (Famotidine) 20 Mg Tablet, 20 MG PO BID PRN for INDIGESTION Prescribed by: MITCHELL LEBRON on 06/27/21 112 Hydroxyzine HCl (Hydroxyzine HCl) 25 Mg Tablet, 25 MG PO BID PRN for ANXIETY, (Reported) Entered as Reported by: SONJA OH on 06/27/211035 Last Action: Reviewed Ibuprofen (Ibuprofen) 200 Mg Tablet, 200-400 MG PO Q8H PRN for PAIN-MILD (1-4), (Reported) Entered as Reported by: SONJA OH on 06/27/21 1038 Last Action: Reviewed Metoprolol Tartrate (Metoprolol Tartrate) 25 Mg Tablet, 12.5 MG PO BID, (Reported) Entered as Reported by: SONJA OH on 05/26/211058 Last Action: Reviewed Pantoprazole Sodium (Pantoprazole Sodium) 40 Mg Tablet., 40 MG PO DAILY Prescribed by: MITCHELL LEBRON on 06/27/21 112 Sertraline HCl (Sertraline HCl) 100 Mg Tablet, 100 MG PO HS, (Reported) Entered as Reported by: SONJA OH on 06/27/21 103 Last Action: Reviewed Discontinued Medications Fluticasone/Salmeterol (Fluticasone-Salmeterol 113-14) 1 Each Aer.pow.ba, 0 EACH IH RTBID Discontinued Reason: No Longer Taking Prescribed by: MITCHELL LEBRON on 05/27/21933 Last Action: Discontinued Prednisone (Prednisone) 20 Mg Tab, 40 MG PO DAILY Discontinued Reason: No Longer Taking Prescribed by: MITCHELL LEBRON on 05/27/21933 Last Action: Discontinued Tramadol HCl (Tramadol HCl) 50 Mg Tablet, 50 MG PO Q6H PRN for PAIN Discontinued Reason: No Longer Taking Prescribed by: HOANG MINAYA on 06/04/211853 Last Action: Discontinued Physical Exam-Cardiology Physical Exam Vital Signs/I&O 06/27/21 06/27/21 06/27/21 06/27/21 07:00 07:21 08:09 08:11 Temp 36.3 Pulse 74 78 Resp 18 B/P (MAP) 110/83 (92) Pulse Ox 93 93 O2 Delivery Room Air Room Air Room Air 06/27/21 12:17 Temp 36.3 Pulse 78 Resp 18 B/P (MAP) 118/90 (99) Pulse Ox 95 O2 Delivery Room Air Capillary Refill : Less Than 3 Seconds Constitutional: AAO x 3, well-developed, well-nourished HEENT: PERRL, hearing is well preserved Neck: No carotid bruit; carotid pulses are 2 + bilaterally Respiratory: No accessory muscle use, No respiratory distress; chest expansion is symmetric, chest is bilaterally symmetric, lungs clear to auscultation Cardiovascular: regular rate-rhythm; No JVD; S1 and S2 Gastrointestinal: No tender; soft, round, audible bowel sounds Extremities: no lower extremity edema bilateral Neurologic/Psychiatric: grossly intact (moves all extremities) Skin: No rash on exposed areas, No ulcerations on exposed areas Data Review Labs Laboratory Tests 06/26/21 19:10: White Blood Count 9.8, Red Blood Count 4.19, Hemoglobin 14.0, Hematocrit 40, Mean Corpuscular Volume 95, Mean Corpuscular Hemoglobin 33, Mean Corpuscular Hemoglobin Concent 35, Red Cell Distribution Width 12.1, Platelet Count 279, Mean Platelet Volume 10.2, Immature Granulocyte % (Auto) 0, Neutrophils (%) (Auto) 34L, Lymphocytes (%) (Auto) 47H, Monocytes (%) (Auto) 7, Eosinophils (%) (Auto) 11H, Basophils (%) (Auto) 1, Neutrophils # (Auto) 3.3, Lymphocytes # (Auto) 4.6H, Monocytes # (Auto) 0.7, Eosinophils # (Auto) 1.0H, Basophils # (Auto) 0.1, Immature Granulocyte # (Auto) 0.0, Prothrombin Time 12.2, INR Comment 0.9, Activated Partial Thromboplast Time 31, Sodium Level 138, Potassium Level 4.3, Chloride Level 106, Carbon Dioxide Level 19L, Anion Gap 13, Blood Urea Nitrogen 16, Creatinine 0.90, Estimat Glomerular Filtration Rate 67, BU N/Creatinine Ratio 18, Glucose Level 152H, Calcium Level 9.4, Corrected Calcium 9.6, Magnesium Level 1.8, Total Bilirubin 0.4, Aspartate Amino Transf (AST/SGOT) 13, Alanine Aminotransferase (ALT/SGPT) 15, Alkaline Phosphatase 104, Total Creatine Kinase 48, Creatine Kinase MB 1.1, Myoglobin 23.5, Troponin I < 0.028, C-Reactive Protein High Sensitivity 0.07, B-Type Natriuretic Peptide 55.0, Total Protein 6.8, Albumin 3.8, Amylase Level 52, Lipase 38, Procalcitonin 0.02, Human Chorionic Gonadotropin, Quant 5, Serum Test, Qualitative POSITIVE 06/26/21 19:20: Urine Color YELLOW, Urine Clarity CLEAR, Urine pH 6.0, Urine Specific Pace 1.025H, Urine Protein NEGATIVE, Urine Glucose (UA) NEGATIVE, Urine Ketones NEGATIVE, Urine Nitrite NEGATIVE, Urine Bilirubin NEGATIVE, Urine Urobilinogen 1.0, Urine Leukocyte Esterase NEGATIVE, Urine RBC (Auto) NEGATIVE, Urine RBC NONE, Urine WBC 0-2, Urine Squamous Epithelial Cells 0-2, Urine Renal Epithelial Cells NONE, Urine Crystals NONE, Urine Bacteria NEGATIVE, Urine Casts NONE, Urine Mucus NEGATIVE, Urine Culture Indicated NO, Urine Opiates Screen NEGATIVE, Urine Oxycodone Screen NEGATIVE, Urine Methadone Screen NEGATIVE, Urine Propoxyphene Screen NEGATIVE, Urine Barbiturates Screen NEGATIVE, Ur Tricyclic Antidepressants Screen NEGATIVE, Urine Phencyclidine Screen NEGATIVE, Urine Amphetamines Screen NEGATIVE, Urine Methamphetamines Screen NEGATIVE, Urine Benzodiazepines Screen NEGATIVE, Urine Cocaine Screen NEGATIVE, Urine Cannabinoids Screen NEGATIVE, SARS-CoV-2 RNA (RT-PCR) Not Detected 06/27/21 06:07: White Blood Count 6.7, Red Blood Count 4.22, Hemoglobin 13.9, Hematocrit 41, Mean Corpuscular Volume 96, Mean Corpuscular Hemoglobin 33, Mean Corpuscular Hemoglobin Concent 34, Red Cell Distribution Width 12.2, Platelet Count 259, Mean Platelet Volume 10.3, Immature Granulocyte % (Auto) 0, Neutrophils (%) (Auto) 29L, Lymphocytes (%) (Auto) 49H, Monocytes (%) (Auto) 8, Eosinophils (%) (Auto) 12H, Basophils (%) (Auto) 1, Neutrophils # (Auto) 2.0, Lymphocytes # (Auto) 3.3, Monocytes # (Auto) 0.5, Eosinophils # (Auto) 0.8H, Basophils # (Auto) 0.1, Immature Granulocyte # (Auto) 0.0, Sodium Level 141, Potassium Level 4.4, Chloride Level 108H, Carbon Dioxide Level 19L, Anion Gap 14, Blood Urea Nitrogen 18, Creatinine 1.02, Estimat Glomerular Filtration Rate 58, BUN/Creatin ine Ratio 18, Glucose Level 149H, Calcium Level 9.5, Troponin I < 0.028, Human Chorionic Gonadotropin, Quant < 5, Triglycerides Level 301H, Cholesterol Level 218H, LDL Cholesterol Direct 153H, VLDL Cholesterol 60H, HDL Cholesterol 35L 06/27/21 10:58: Glucometer 118H A/P-Cardiology Assessment/Admission Diagnosis Chest pain of undetermined etiology - no evidence of ACS COPD - managed by PCP CAD: - H/o CABG in 2009. -Last [place] on 04/23/20 due to mid-vessel, instent occlusion of RCA, treated with ballon angioplasty and stenting with Xience Radha 2.25x33 stent that was post- dilated to 3 mm kevin (Dr Bartlett). LAD had mild instent restenosis in prox LAD, LCX had patent stent, LVEDP 32 mmHg, preserved LV function, patent SVG to a diag, atretic LOPEZ to LAD. - MPI of 05-17-21: Inferior wall myocardial infarction with a small amount of ted-infarct ischemia. Inferior wall hypokinesis. Well preserved global left ventricular systolic function with ejection fraction of 54%. - Echo of 04/23/20: LVEF 55-60%, mild dil LA,mild to mod MR, PASP 25-30 mmHg - Last card cath on 05/24/21: patent stents in the L cor system, occluded/atretic LOPEZ to LAD, patent SVG to an OM with 70% ostial stenosis that was successfully stented on 05/24/21 with Radha 2.5 x 18 mm stent (deployed at 20 [place]), midvessel instent occlusion of RCA and 90% proximal instent stenosis of RCA, prox RCA stenosis reduced to 50% with balloon angioplasty, distal RCA occlusion could not be opened up, LVEDP 17 mmHg GI - Mod hiatal hernia seen on CT of chest on 02-03-21 - H/o erosive esophagitis Abnormal ECG - ECG of 05/24/20 shows NSR, old IMI Tobaccoism - cessation advised Hyperlipidemia - being treated with atorvastatin - managed by PCP History of maturity onset diabetes mellitus. - managed by PCP Obesity - with a body mass index of approx 36 Body habitus and daytime somnolence is suggestive of REINA - sleep studies advised Discussion and Recomendations Chest discomfort of undetermined etiology - no evidence of ACS Continue ASA and Plavix d/t h/o CAD with recent stenting Start PPI d/t h/o GERD and erosive esophagitis Monitor lab closely Further recs will be based on her hospital course I discussed her case with Dr Lebron this am Clinical Quality Measures AMI/AHF: ASA po Prior to arrival: Yes JIMENA ROBLES MD FACP FAC CCDS Jun 27, 2021 17:10
[2021-06-28] MEDS ORDERED: PANTOPRAZOLE 40 MG (PROTONIX) TAB PO SCH (09:00)
--- NOTE | 2021-07-01 10:13 | Physician Query-Final Dx ---
LIZABETH LOAIZA 07/01/21 1013: Final Diagnosis Give Final Diagnosis Please give Final Diagnosis MITCHELL LEBRON MD 07/02/21 1503: Final Diagnosis Give Final Diagnosis chest pain LIZABETH LOAIZA Jul 01, 2021 10:13 MITCHELL LEBRON MD Jul 02, 2021 15:03
== END 2021-06-27 11:27 | disposition home or self-care (01) ==
LOC: EDUNIT# 19:10 → ER 19:12 → INTOOBSV 21:00 → CSD 21:00 → UNDOADMOB 21:00 → CSD 21:00 → UNDODISOB 06-27 13:22
PROVIDERS: ADMIT Family Medicine; ATTEND Family Medicine
DX: R07.89 Other chest pain (principal); J18.9 Pneumonia, unspecified organism; J44.1 Chronic obstructive pulmonary disease with (acute) exacerbation; Z79.899 Other long term (current) drug therapy; Z79.82 Long term (current) use of aspirin; Z79.02 Long term (current) use of antithrombotics/antiplatelets; Z79.1 Long term (current) use of non-steroidal anti-inflammatories (NSAID); F17.210 Nicotine dependence, cigarettes, uncomplicated; E78.00 Pure hypercholesterolemia, unspecified; I10 Essential (primary) hypertension; R56.9 Unspecified convulsions; K21.00 Gastro-esophageal reflux disease with esophagitis, without bleeding; M19.90 Unspecified osteoarthritis, unspecified site; E03.9 Hypothyroidism, unspecified; E11.9 Type 2 diabetes mellitus without complications; F41.9 Anxiety disorder, unspecified; F32.A Depression, unspecified; Z95.1 Presence of aortocoronary bypass graft; E78.5 Hyperlipidemia, unspecified; E66.9 Obesity, unspecified; Z68.36 Body mass index [BMI] 36.0-36.9, adult; Z95.5 Presence of coronary angioplasty implant and graft; I25.110 Atherosclerotic heart disease of native coronary artery with unstable angina pectoris; I25.2 Old myocardial infarction
CPT/HCPCS: 36415; 71045; 80048; 80053; 80061; 80306; 81000; 82150; 82550; 82553; 82947; 83690; 83735; 83874; 83880; 84145; 84484; 84702; 84703; 85025; 85610; 85730; 86141; 87636; 93005; 93041; 96374; 96375

== ENCOUNTER 2021-07-27 13:41 | Emergency (ER) | payer MEDICARE, MEDICAID ==
[~2021-07-27] VITALS: Ht 172.7 cm; Wt 97.5 kg
[~2021-07-27 13:41] MED LIST changes: +ARIP15TA4 PO; +IBUP-2473 PO; +PANT40TA52 PO
[2021-07-27] MEDS ORDERED: NITROGLYCERIN 2% OINT 1 GM UNIT DOSE PACKET TOP STA (13:49)
--- NOTE | 2021-07-27 13:51 | ED Chest Pain ---
General Stated Complaint: CP Source: patient, EMS Exam Limitations: no limitations History of Present Illness Date Seen by Provider: Jul 27, 2021 Time Seen by Provider: 13:41 Initial Comments 46-year-old female with past medical history of CAD status post CABG and stenting and COPD coming in via EMS due to chest pain. Takes Plavix and was on aspirin but ran out. Having bilateral lower chest pain radiating to L arm. Started 12pm today and has been constant. Feels similar to prior episodes that she has presented to the ER for. No fever, abd pain, vomiting, weakness, numbness, headache, or any other concerns. Allergies and Home Medications Allergies Coded Allergies: Penicillins (Verified Allergy, Unknown, 05/16/21) Sulfa (Sulfonamide Antibiotics) (Verified Allergy, Unknown, 05/16/21) naproxen (Verified Allergy, Unknown, HIVES, NAUSEA--can take ibuprofen, 05/16/21) Patient Home Medication List Home Medication List Reviewed: Yes Albuterol Sulfate (Proair Hfa) 1 Puff Puff, 2 PUFF IH Q4H PRN for SHORTNESS OF BREATH, (Reported) Entered as Reported by: SONJA OH on 05/26/21 1059 Aripiprazole (Abilify) 15 Mg Tablet, 7.5 MG PO DAILY, (Reported) Entered as Reported by: SONJA OH on 06/27/21 1036 Aspirin (Aspirin EC) 81 Mg Tablet.dr, 81 MG PO DAILY, (Reported) Entered as Reported by: SONJA OH on 05/24/21 0959 Atorvastatin Calcium (Atorvastatin Calcium) 40 Mg Tablet, 40 MG PO HS, (Report ed) Entered as Reported by: SONJA OH on 05/24/21 0959 Clopidogrel Bisulfate (Plavix) 75 Mg Tablet, 75 MG PO DAILY, (Reported) Entered as Reported by: SONJA OH on 05/26/21 1059 Famotidine (Famotidine) 20 Mg Tablet, 20 MG PO BID PRN for INDIGESTION Prescribed by: MITCHELL LEBRON on 06/27/21 1127 Hydroxyzine HCl (Hydroxyzine HCl) 25 Mg Tablet, 25 MG PO BID PRN for ANXIETY, (Reported) Entered as Reported by: SONJA OH on 06/27/21 1036 Ibuprofen (Ibuprofen) 200 Mg Tablet, 200-400 MG PO Q8H PRN for PAIN-MILD (1-4), (Reported) Entered as Reported by: SONJA OH on 06/27/21 1038 Metoprolol Tartrate (Metoprolol Tartrate) 25 Mg Tablet, 12.5 MG PO BID, (Reported) Entered as Reported by: SONJA OH on 05/26/21 1059 Pantoprazole Sodium (Pantoprazole Sodium) 40 Mg Tablet.dr, 40 MG PO DAILY Prescribed by: MITCHELL LEBRON on 06/27/21 1127 Prednisone (Prednisone) 20 Mg Tab, 40 MG PO DAILY Prescribed by: KISHORE OSWALD on 07/27/21 1438 Sertraline HCl (Sertraline HCl) 100 Mg Tablet, 100 MG PO HS, (Reported) Entered as Reported by: SONJA OH on 06/27/21 1036 Review of Systems Review of Systems Constitutional: No chills, No fever EENTM: No Blurred Vision Respiratory: Denies Cough, Denies Shortness of Air Cardiovascular: Chest Pain Gastrointestinal: Denies Abdominal Pain, Denies Diarrhea, Denies Nausea, Denies Vomiting Genitourinary: Denies Burning Musculoskeletal: No back pain Skin: no symptoms reported Psychiatric/Neurological: No Symptoms Reported Endocrine: No Symptoms Reported Hematologic/Lymphatic: No Symptoms Reported All Other Systems Reviewed Negative Unless Noted: Yes Past Wxzmzhp-Gktvmr-Laedow Hx Patient Social History Tobacco Use?: Yes Substance use?: No Immunizations Up To Date Tetanus Booster (TDap): More than 5yrs First/Initial COVID19 Vaccinat: not vaccinated Second COVID19 Vaccination Mark: not vaccinated Third COVID19 Vaccination Date: not vaccinated Seasonal Allergies Seasonal Allergies: No Past Medical History Surgery/Hospitalization HX: SEE BELOW 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) Sexually Transmitted Disease: Yes (HERPES) Genitourinary: No Gastrointestinal: Yes (S/P FABRICE FUNDOPLICATION) Gastroesophageal Reflux, Esophagitis, Hiatal Hernia, Gall Bladder Disease Musculoskeletal: Yes Arthritis Endocrine: Yes Hypothyroidsim, Diabetes, Non-Insulin dep HEENT: Yes Chronic Ear Infection Hearing Impairment: Hard of Hearing Cancer: Yes Cervical Did You Recieve Any Treatments: Yes What Type of Treatment Did You: Surgical Intervention Psychosocial: Yes Sleep Difficulties, Anxiety, Suicide Attempts, Depression Integumentary: No Blood Disorders: No Adverse Reaction/Blood Tranf: No Family Medical History No Pertinent Family Hx ADDITIONAL PAST MEDICAL AND PROCEDURAL HISTORY: -FABRICE FUNDOPLICATION -CHOLECYSTECTOMY -TONSILLECTOMY/ADENOIDECTOMY -TRACHEOSTOMY/LATER REMOVAL -PT HAD NSTEMI AND WAS ADMITTED 04/22/20-04/24/20, HAD CARDIAC CATH 04/23/20 AND HAD STENT X 1 TO RCA -PT HAS PREVIOUSLY HAD A CABG IN 2009, MULTIPLE STENTS TO RCA, AND STENT TO CIRCUMFLEX IN THE PAST. CARDIAC CATH 05/24/[address] ROBLES: CONCLUSIONS: 1. Coronary artery disease as detailed above. The left anterior descending and left circumflex arteries have patent stents. An obtuse marginal branch of the left circumflex has a patent aortocoronary graft, this graft had 70% ostial stenosis and was successfully stented with Radha 2.5 x 18 mm stent, deployed at 20 atmospheres. The right coronary artery had 90% proximal stenosis, which went to 50% stenosis following balloon angioplasty. The mid and distal right coronary artery have in-stent occlusion. This is a very long segment of occlusion and attempts at percutaneous intervention to this portion of the vessel were unsuccessful. 2. Mild elevation of left ventricular end-diastolic pressure. DISCUSSION AND RECOMMENDATIONS: Risk factor modification has been advised. Dual antiplatelet therapy is being continued. Because of low blood pressure, she is not a suitable candidate for beta blockers or MORRO inhibitors or angiotensin receptor blockers. Statin therapy is being continued. Physical Exam Vital Signs Vital Signs - First Documented 07/27/21 07/27/21 13:42 15:09 Temp 37.0 Pulse 78 Resp 17 B/P (MAP) 125/83 (97) Pulse Ox 96 O2 Delivery Room Air Capillary Refill : Height, Weight, BMI Height: 5'8.00" Weight: 189lbs. 0.0oz. 85.952189ky; 32.95 BMI Method:Stated General Appearance: No Apparent Distress, WD/WN HEENT: PERRL/EOMI, Normal ENT Inspection, Pharynx Normal Neck: Full Range of Motion, Normal Inspection, Non Tender, Supple Respiratory: Chest Non Tender, No Accessory Muscle Use, No Respiratory Distress, Wheezing Cardiovascular: Regular Rate, Rhythm, No Edema, Normal Peripheral Pulses Gastrointestinal: Normal Bowel Sounds, Non Tender, Soft; No Distended, No Guarding Extremity: Normal Capillary Refill, Normal Inspection, Normal Range of Motion, Non Tender, No Calf Tenderness, No Pedal Edema Neurologic/Psychiatric: Alert, No Motor/Sensory Deficits, Normal Mood/Affect Skin: Normal Color, Warm/Dry Lymphatic: No Adenopathy Progress/Results/Core Measures Results/Orders Lab Results Laboratory Tests Test 07/27/21 14:05 07/27/21 16:15 Range/Units White Blood Count 7.8 4.3-11.0 10^3/uL Red Blood Count 4.18 3.80-5.11 10^6/uL Hemoglobin 13.8 11.5-16.0 g/dL Hematocrit 40 35-52 % Mean Corpuscular Volume 96 80-99 fL Mean Corpuscular Hemoglobin 33 25-34 pg Mean Corpuscular Hemoglobin Concent 35 32-36 g/dL Red Cell Distribution Width 12.0 10.0-14.5 % Platelet Count 282 130-400 10^3/uL Mean Platelet Volume 10.3 9.0-12.2 fL Immature Granulocyte % (Auto) 0 % Neutrophils (%) (Auto) 45 42-75 % Lymphocytes (%) (Auto) 38 12-44 % Monocytes (%) (Auto) 6 0-12 % Eosinophils (%) (Auto) 10 0-10 % Basophils (%) (Auto) 1 0-10 % Neutrophils # (Auto) 3.5 1.8-7.8 10^3/uL Lymphocytes # (Auto) 3.0 1.0-4.0 10^3/uL Monocytes # (Auto) 0.5 0.0-1.0 10^3/uL Eosinophils # (Auto) 0.8 H 0.0-0.3 10^3/uL Basophils # (Auto) 0.1 0.0-0.1 10^3/uL Immature Granulocyte # (Auto) 0.0 0.0-0.1 10^3/uL Prothrombin Time 13.2 12.2-14.7 SEC INR Comment 1.0 0.8-1.4 Activated Partial Thromboplast Time 30 24-35 SEC Sodium Level 137 135-145 MMOL/L Potassium Level 3.8 3.6-5.0 MMOL/L Chloride Level 108 H 98-107 MMOL/L Carbon Dioxide Level 19 L 21-32 MMOL/L Anion Gap 10 5-14 MMOL/L Blood Urea Nitrogen 15 7-18 MG/DL Creatinine 0.86 0.60-1.30 MG/DL Estimat Glomerular Filtration Rate 70 BUN/Creatinine Ratio 17 Glucose Level 192 H 70-105 MG/DL Calcium Level 8.6 8.5-10.1 MG/DL Corrected Calcium 9.0 8.5-10.1 MG/DL Magnesium Level 1.7 1.6-2.4 MG/DL Total Bilirubin 0.7 0.1-1.0 MG/DL Aspartate Amino Transf (AST/SGOT) 12 5-34 U/L Alanine Aminotransferase (ALT/SGPT) 18 0-55 U/L Alkaline Phosphatase 103 40-136 U/L Troponin I < 0.028 <0.028 NG/ML Total Protein 6.3 L 6.4-8.2 GM/DL Albumin 3.5 3.2-4.5 GM/DL My Orders Orders - KISHORE OSWALD MD Cbc With Automated Diff (07/27/21 13:49) Magnesium (07/27/21 13:49) Chest 1 View, Ap/Pa Only (07/27/21 13:49) Ekg Tracing (07/27/21 13:49) Comprehensive Metabolic Panel (07/27/21 13:49) Protime With Inr (07/27/21 13:49) Partial Thromboplastin Time (07/27/21 13:49) O2 (07/27/21 13:49) Monitor-Rhythm Ecg Trace Only (07/27/21 13:49) Ed Iv/Invasive Line Start (07/27/21 13:49) Troponin I Kt (07/27/21 13:49) Nitroglycerin Ointment (Nitrobid Ointme (07/27/21 13:49) Aspirin Chewable Tablet (Baby Aspirin Ch (07/27/21 14:30) Acetaminophen Tablet (Tylenol Tablet) (07/27/21 14:45) Albuterol/Ipra Inhalation Soln (Duoneb I (07/27/21 14:45) Prednisone Tablet (Deltasone Tablet) (07/27/21 14:45) Aspirin Chewable Tablet (Baby Aspirin Ch (07/27/21 15:03) Troponin I Kt (07/27/21 15:42) Hydrocodone/Apap 5/325 Tablet (Lortab 5 (07/27/21 16:15) Medications Given in ED Current Medications Medications Dose Ordered Sig/Sara Route Start Time Stop Time Status Last Admin Dose Admin Acetaminophen 1,000 mg ONCE ONCE PO 07/27/21 14:45 07/27/21 14:46 DC 07/27/21 15:05 1,000 MG Acetaminophen/ Hydrocodone Bitart 1 ea ONCE ONCE PO 07/27/21 16:15 07/27/21 16:16 DC 07/27/21 16:26 1 EA Albuterol/ Ipratropium 3 ml ONCE ONCE INH 07/27/21 14:45 07/27/21 14:46 DC 07/27/21 15:08 3 ML Aspirin 324 mg ONCE ONCE PO 07/27/21 14:30 07/27/21 14:31 DC 07/27/21 15:05 324 MG Prednisone 40 mg ONCE ONCE PO 07/27/21 14:45 07/27/21 14:46 DC 07/27/21 15:06 40 MG Vital Signs/I&O 07/27/21 07/27/21 13:42 15:09 Temp 37.0 Pulse 78 Resp 17 B/P (MAP) 125/83 (97) Pulse Ox 96 O2 Delivery Room Air Room Air Progress Progress Note : Progress Note 46-year-old female with above history coming in due to chest discomfort. ABCs were intact and vitals were stable on presentation. Physical exam only positive for wheezing. She has been using an inhaler less as she recently moved and has hard time finding her medications. Also ran out of her aspirin recently. Does not give her full dose aspirin and a DuoNeb. EKG without any acute ischemic changes. Chest x-ray otherwise clear without any signs of pneumonia on my interpretation. Troponin negative with repeat pending. given the constant pain for hours without any bump in her troponin on a high-sensitivity assay, low likelihood for ACS. I did tell her her I would like the repeat troponin to come back, but her right is currently here and she wants to leave at this moment. She said her pain has improved. I discussed that I will follow this up and call her back if the troponin is positive, and if this does not the most ideal situation, but given her pain is gone I am okay with it. More suspicion is for COPD exacerbation. Also give her steroids. Vitals have remained stable, I be lieve she is stable for outpatient management with medications. She was sent home with strict return precautions Initial ECG Impression Date: Jul 27, 2021 Initial ECG Impression Time: 13:44 Initial ECG Rate: 78 Initial ECG Rhythm: Normal Sinus Comment Normal sinus rhythm, narrow QRS, normal axis, no significant ST changes or T wave abnormalities Diagnostic Imaging Diagonstic Imaging: Xray Plain Films/CT/US/NM/MRI: chest Comments [facility] [place], [place] NAME: WAN DA SILVA [employer] REC#: [id number] PT STATUS: REG ER : 1975 PHYSICIAN: KISHORE OSWALD MD ADMIT DATE: 07/27/21/ER Draft Date of Exam:07/27/21 CHEST 1 VIEW, AP/PA ONLY INDICATION: Chest pain. FINDINGS: Upright portable chest shows normal heart size and vascularity. The lungs are clear. There is no effusion or pneumothorax. There are changes of prior CABG. There is no bony abnormality. IMPRESSION: No acute abnormality is seen with no change from 06/26/2021. Dictated on workstation # [id number] Dict: 07/27/21 1437 Trans: 07/27/21 1441 [id number] Interpreted by: CLEMENCIA JEWELL MD Electronically signed by: Departure Impression Primary Impression: Chest pain Additional Impression: COPD exacerbation Disposition: 01 HOME, SELF-CARE Condition: Stable Departure-Patient Inst. Decision time for Depature: 16:58 Referrals: EDWAR LOBO DO (PCP/Family) Primary Care Physician Patient Instructions: COPD Exacerbation, Adult ED, Chest Pain (DC) Add. Discharge Instructions: You are seen in the emergency department for chest pain. Your labs are reassuring and it does not appear like you are having a heart attack at this time. I actually believe this is more likely related to your COPD given your wheezing in her lungs. Begin using your inhaler regularly and I sent some steroids to the pharmacy as well. Also begin taking aspirin regularly again. Scripts Prednisone (Prednisone) 20 Mg Tab 40 MG PO DAILY for 5 Days, #10 TAB Prov: KISHORE OSWALD MD 07/27/21 KISHORE OSWALD MD Jul 27, 2021 13:51
[2021-07-27 14:14] LABS: BASOPHILS # (AUTO) 0.1 10^3/uL (0.0-0.1); BASOPHILS % (AUTO) 1 % (0-10); EOSINOPHILS # (AUTO) 0.8 10^3/uL (0.0-0.3); EOSINOPHILS % (AUTO) 10 % (0-10); HEMATOCRIT 40 % (35-52); HEMOGLOBIN 13.8 g/dL (11.5-16.0); LYMPHOCYTES % (AUTO) 38 % (12-44); MEAN CORPUSCULAR HEMOGLOBIN 33 pg (25-34); MEAN CORPUSCULAR HGB CONC 35 g/dL (32-36); MEAN CORPUSCULAR VOLUME 96 fL (80-99); MEAN PLATELET VOLUME 10.3 fL (9.0-12.2); MONOCYTES # (AUTO) 0.5 10^3/uL (0.0-1.0); MONOCYTES % (AUTO) 6 % (0-12); NEUTROPHILS # (AUTO) 3.5 10^3/uL (1.8-7.8); NEUTROPHILS % (AUTO) 45 % (42-75); PLATELET COUNT 282 10^3/uL (130-400); WHITE BLOOD COUNT 7.8 10^3/uL (4.3-11.0)
[2021-07-27 14:24] LABS: ALBUMIN 3.5 GM/DL (3.2-4.5); POTASSIUM 3.8 MMOL/L (3.6-5.0)
[2021-07-27 14:25] LABS: CALCIUM 8.6 MG/DL (8.5-10.1)
[2021-07-27 14:26] LABS: TOTAL PROTEIN 6.3 GM/DL (6.4-8.2)
[2021-07-27 14:28] LABS: BILIRUBIN,TOTAL 0.7 MG/DL (0.1-1.0)
[2021-07-27 14:30] LABS: CREATININE SERUM 0.86 MG/DL (0.60-1.30)
[2021-07-27] MEDS ORDERED: ASPIRIN 81 MG CHEW (CHILDREN'S ASA) PO ONE (14:30)
[2021-07-27 14:31] LABS: PROTHROMBIN TIME PATIENT 13.2 SEC (12.2-14.7)
[2021-07-27 14:33] LABS: MAGNESIUM 1.7 MG/DL (1.6-2.4)
[2021-07-27] MEDS ORDERED: PRD20T PO (14:38)
--- NOTE | 2021-07-27 14:41 | Diagnostic Imaging Report ---
INDICATION: Chest pain. FINDINGS: Upright portable chest shows normal heart size and vascularity. The lungs are clear. There is no effusion or pneumothorax. There are changes of prior CABG. There is no bony abnormality. IMPRESSION: No acute abnormality is seen with no change from 06/26/2021. Dictated by: Dictated on workstation # [id number]
[2021-07-27] MEDS ORDERED: RT-ALBUTEROL/IPRATROPIUM 3 ML (DUONEB) VIAL INH ONE (14:45)
[2021-07-27] MEDS ORDERED: predniSONE 20 MG TAB PO ONE (14:45)
[2021-07-27] MEDS ORDERED: ACETAMINOPHEN 500 MG TAB (TYLENOL) PO ONE (14:45)
[2021-07-27] MEDS ORDERED: ASPIRIN 81 MG CHEW (CHILDREN'S ASA) ONE (15:03)
[2021-07-27] MEDS ORDERED: HYDROcodone/APAP 5 MG/325 MG (LORTAB) TAB PO ONE (16:15)
[2021-07-27 17:02] VITALS: BP 151/73
== END 2021-07-27 17:02 | disposition home or self-care (01) ==
LOC: EDUNIT# 13:41 → ER 13:43
DX: R07.9 Chest pain, unspecified (principal); J44.1 Chronic obstructive pulmonary disease with (acute) exacerbation; I25.2 Old myocardial infarction; I10 Essential (primary) hypertension; K21.9 Gastro-esophageal reflux disease without esophagitis; I25.10 Atherosclerotic heart disease of native coronary artery without angina pectoris; F41.9 Anxiety disorder, unspecified; F32.9 Major depressive disorder, single episode, unspecified; E78.00 Pure hypercholesterolemia, unspecified; E11.9 Type 2 diabetes mellitus without complications; Z79.82 Long term (current) use of aspirin; Z79.01 Long term (current) use of anticoagulants; Z79.899 Other long term (current) drug therapy
CPT/HCPCS: 36415; 71045; 80053; 83735; 84484; 85025; 85610; 85730; 93005; 93041; 94640

== ENCOUNTER 2021-08-14 19:12 | Observation (INO) | payer MEDICARE, MEDICAID ==
[~2021-08-14] VITALS: Ht 173 cm; Wt 113.0 kg
[2021-08-14 19:38] LABS: BASOPHILS # (AUTO) 0.1 10^3/uL (0.0-0.1); BASOPHILS % (AUTO) 1 % (0-10); EOSINOPHILS # (AUTO) 0.3 10^3/uL (0.0-0.3); EOSINOPHILS % (AUTO) 4 % (0-10); HEMATOCRIT 39 % (35-52); HEMOGLOBIN 13.3 g/dL (11.5-16.0); LYMPHOCYTES # (AUTO) 2.8 10^3/uL (1.0-4.0); LYMPHOCYTES % (AUTO) 37 % (12-44); MEAN CORPUSCULAR HEMOGLOBIN 32 pg (25-34); MEAN CORPUSCULAR HGB CONC 34 g/dL (32-36); MEAN CORPUSCULAR VOLUME 94 fL (80-99); MEAN PLATELET VOLUME 10.4 fL (9.0-12.2); MONOCYTES # (AUTO) 0.8 10^3/uL (0.0-1.0); MONOCYTES % (AUTO) 11 % (0-12); NEUTROPHILS # (AUTO) 3.6 10^3/uL (1.8-7.8); NEUTROPHILS % (AUTO) 47 % (42-75); PLATELET COUNT 317 10^3/uL (130-400); WHITE BLOOD COUNT 7.5 10^3/uL (4.3-11.0)
[2021-08-14 19:45] LABS: PROTHROMBIN TIME PATIENT 13.3 SEC (12.2-14.7)
--- NOTE | 2021-08-14 19:46 | Diagnostic Imaging Report ---
EXAMINATION: Chest radiograph, portable AP view. DATE: 08/14/2021 7:36 PM. INDICATION: 46-year-old female, chest pain. COMPARISON: July 27, 2021. FINDINGS: There are median sternotomy wires. Heart size and mediastinal contours are unchanged. There is no identified pneumothorax. There is no large pleural effusion. There is no identified interval focal airspace consolidation. IMPRESSION: No identified acute cardiopulmonary abnormality. Dictated by: Dictated on workstation # [id number]
[2021-08-14 20:03] LABS: ALBUMIN 3.8 GM/DL (3.2-4.5); BILIRUBIN,TOTAL 1.6 MG/DL (0.1-1.0); CALCIUM 9.1 MG/DL (8.5-10.1); CREATININE SERUM 0.99 MG/DL (0.60-1.30); MAGNESIUM 1.8 MG/DL (1.6-2.4); POTASSIUM 3.5 MMOL/L (3.6-5.0); TOTAL PROTEIN 7.1 GM/DL (6.4-8.2)
[2021-08-14] MEDS ORDERED: ASPIRIN 81 MG CHEW (CHILDREN'S ASA) PO ONE (21:30)
[2021-08-14] MEDS ORDERED: NITROGLYCERIN 0.4 MG SL TABS BTL 25'S SL PRN (21:30)
[2021-08-14] MEDS ORDERED: LACTATED RINGERS 1,000 ML IV ONE (22:15)
[2021-08-14] MEDS ORDERED: KETOROLAC 30 MG/ML VIAL IVP ONE (22:30)
--- NOTE | 2021-08-14 22:54 | Diagnostic Imaging Report ---
PROCEDURE: CT angiography of the chest with contrast. TECHNIQUE: Multiple contiguous axial images were obtained through the chest after uneventful bolus administration of intravenous contrast. 3D reconstructed CTA MIP acquisitions were also performed. Auto Exposure Controls were utilized during the CT exam to meet ALARA standards for radiation dose reduction. INDICATION: Chest pain. FINDINGS: The lungs are clear. There are no effusions or pneumothoraces. There is a moderate-sized sliding hiatal hernia. There are postoperative changes from CABG surgery. There is no evidence of right ventricular strain. There are no pulmonary emboli. IMPRESSION: Hiatal hernia. No acute abnormality is seen in the chest. Dictated by: Dictated on workstation # [id number]
[2021-08-14] MEDS ORDERED: HOLD METFORMIN - RECEIVED CONTRAST 20 ML VIAL IV SCH (23:00)
[2021-08-14] MEDS ORDERED: IOHEXOL 350 MG/ML 100 ML (OMNIPAQUE 350) VIAL IV ONE (23:00)
[2021-08-14] MEDS ORDERED: NS 100 ML (IVPB) BAG IV ONE (23:00)
--- NOTE | 2021-08-14 23:13 | ED Chest Pain ---
General Chief Complaint: Respiratory Problems Stated Complaint: SOB Nursing Triage Note: BROUGHT IN BY [facility] FOR C/O SOA. PT REPORTS INCREASING SOA SINCE THIS AM WITH COUGH STARTING THIS AFTERNOON. Source: patient, old records Exam Limitations: no limitations History of Present Illness Date Seen by Provider: Aug 14, 2021 Time Seen by Provider: 19:15 Initial Comments This 46-year-old woman with notable history of coronary artery disease presents to the emergency room with complaints of shortness of air and chest tightness. Pain started upon waking this morning and is worse with inspiration. She also has experienced nausea, diarrhea, cough, and chills. She takes aspirin and Plavix and states good compliance with these medications. Her most recent cardiac angiography was performed in May. She had angioplasty and stent placement performed at that time. See cath report for more details. Allergies and Home Medications Allergies Coded Allergies: Penicillins (Verified Allergy, Unknown, 05/16/21) Sulfa (Sulfonamide Antibiotics) (Verified Allergy, Unknown, 05/16/21) naproxen (Verified Allergy, Unknown, HIVES, NAUSEA--can take ibuprofen, 05/16/21) Patient Home Medication List Home Medication List Reviewed: Yes Albuterol Sulfate (Proair Hfa) 1 Puff Puff, 2 PUFF IH Q4H PRN for SHORTNESS OF BREATH, (Reported) Entered as Reported by: SONJA OH on 05/26/21 1059 Aripiprazole (Abilify) 15 Mg Tablet, 7.5 MG PO DAILY, (Reported) Entered as Reported by: SONJA OH on 06/27/21 1036 Aspirin (Aspirin EC) 81 Mg Tablet.dr, 81 MG PO DAILY, (Reported) Entered as Reported by: SONJA OH on 05/24/21 0959 Atorvastatin Calcium (Atorvastatin Calcium) 40 Mg Tablet, 40 MG PO HS, (Reported) Entered as Reported by: SONJA OH on 05/24/21 0959 Clopidogrel Bisulfate (Plavix) 75 Mg Tablet, 75 MG PO DAILY, (Reported) Entered as Reported by: SONJA OH on 05/26/21 1059 Famotidine (Famotidine) 20 Mg Tablet, 20 MG PO BID PRN for INDIGESTION Prescribed by: MITCHELL LEBRON on 06/27/21 1127 Hydroxyzine HCl (Hydroxyzine HCl) 25 Mg Tablet, 25 MG PO BID PRN for ANXIETY, (Reported) Entered as Reported by: SONJA OH on 06/27/21 1036 Ibuprofen (Ibuprofen) 200 Mg Tablet, 200-400 MG PO Q8H PRN for PAIN-MILD (1-4), (Reported) Entered as Reported by: SONJA OH on 06/27/21 1038 Metoprolol Tartrate (Metoprolol Tartrate) 25 Mg Tablet, 12.5 MG PO BID, (Reported) Entered as Reported by: SONJA OH on 05/26/21 1059 Pantoprazole Sodium (Pantoprazole Sodium) 40 Mg Tablet.dr, 40 MG PO DAILY Prescribed by: MITCHELL LEBRON on 06/27/21 1127 Prednisone (Prednisone) 20 Mg Tab, 40 MG PO DAILY Prescribed by: KISHORE OSWALD on 07/27/21 1438 Sertraline HCl (Sertraline HCl) 100 Mg Tablet, 100 MG PO HS, (Reported) Entered as Reported by: SONJA OH on 06/27/21 1036 Review of Systems Review of Systems Constitutional: see HPI EENTM: No Symptoms Reported Respiratory: See HPI Cardiovascular: See HPI Gastrointestinal: See HPI Genitourinary: No Symptoms Reported Musculoskeletal: no symptoms reported Skin: no symptoms reported Psychiatric/Neurological: No Symptoms Reported Endocrine: No Symptoms Reported Hematologic/Lymphatic: No Symptoms Reported Past Fgjffdo-Ihfqgs-Zvyset Hx Patient Social History Tobacco Use?: No Smoking Status: Former Smoker Use of E-Cig and/or Vaping dev: No Substance use?: No Alcohol Use?: No Pt feels they are or have been: No Immunizations Up To Date Tetanus Booster (TDap): More than 5yrs First/Initial COVID19 Vaccinat: not vaccinated Second COVID19 Vaccination Mark: not vaccinated Third COVID19 Vaccination Date: not vaccinated Seasonal Allergies Seasonal Allergies: No Past Medical History Surgery/Hospitalization HX: CABG, CARDIAC STENTS, COPD, ASTHMA, HTN, HIGH CHOLESTEROL, GERD, ANXIETY, DEPRESSION 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) Sexually Transmitted Disease: Yes (HERPES) Genitourinary: No Gastrointestinal: Yes (S/P FABRICE FUNDOPLICATION) Gastroesophageal Reflux, Esophagitis, Hiatal Hernia, Gall Bladder Disease Musculoskeletal: Yes Arthritis Endocrine: Yes Hypothyroidsim, Diabetes, Non-Insulin dep HEENT: Yes Chronic Ear Infection Hearing Impairment: Hard of Hearing Cancer: Yes Cervical Did You Recieve Any Treatments: Yes What Type of Treatment Did You: Surgical Intervention Psychosocial: Yes Sleep Difficulties, Anxiety, Suicide Attempts, Depression Integumentary: No Blood Disorders: No Adverse Reaction/Blood Tranf: No Family Medical History No Pertinent Family Hx ADDITIONAL PAST MEDICAL AND PROCEDURAL HISTORY: -FABRICE FUNDOPLICATION -CHOLECYSTECTOMY -TONSILLECTOMY/ADENOIDECTOMY -TRACHEOSTOMY/LATER REMOVAL -PT HAD NSTEMI AND WAS ADMITTED 04/22/20-04/24/20, HAD CARDIAC CATH 04/23/20 AND HAD STENT X 1 TO RCA -PT HAS PREVIOUSLY HAD A CABG IN 2009, MULTIPLE STENTS TO RCA, AND STENT TO CIRCUMFLEX IN THE PAST. CARDIAC CATH 05/24/[address] ROBLES: CONCLUSIONS: 1. Coronary artery disease as detailed above. The left anterior descending and left circumflex arteries have patent stents. An obtuse marginal branch of the left circumflex has a patent aortocoronary graft, this graft had 70% ostial stenosis and was successfully stented with Radha 2.5 x 18 mm stent, deployed at 20 atmospheres. The right coronary artery had 90% proximal stenosis, which went to 50% stenosis following balloon angioplasty. The mid and distal right coronary artery have in-stent occlusion. This is a very long segment of occlusion and attempts at percutaneous intervention to this portion of the vessel were unsuccessful. 2. Mild elevation of left ventricular end-diastolic pressure. DISCUSSION AND RECOMMENDATIONS: Risk factor modification has been advised. Dual antiplatelet therapy is being continued. Because of low blood pressure, she is not a suitable candidate for beta blockers or MORRO inhibitors or angiotensin receptor blockers. Statin therapy is being continued. Physical Exam Vital Signs Vital Signs - First Documented Capillary Refill : Less Than 3 Seconds Height, Weight, BMI Height: 5'8.00" Weight: 189lbs. 0.0oz. 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 Norm as Tested Skin: Normal Color, Warm/Dry Progress/Results/Core Measures Results/Orders Lab Results Laboratory Tests Test 08/14/21 19:28 08/14/21 20:58 08/14/21 21:45 Range/Units White Blood Count 7.5 4.3-11.0 10^3/uL Red Blood Count 4.13 3.80-5.11 10^6/uL Hemoglobin 13.3 11.5-16.0 g/dL Hematocrit 39 35-52 % Mean Corpuscular Volume 94 80-99 fL Mean Corpuscular Hemoglobin 32 25-34 pg Mean Corpuscular Hemoglobin Concent 34 32-36 g/dL Red Cell Distribution Width 11.7 10.0-14.5 % Platelet Count 317 130-400 10^3/uL Mean Platelet Volume 10.4 9.0-12.2 fL Immature Granulocyte % (Auto) 0 % Neutrophils (%) (Auto) 47 42-75 % Lymphocytes (%) (Auto) 37 12-44 % Monocytes (%) (Auto) 11 0-12 % Eosinophils (%) (Auto) 4 0-10 % Basophils (%) (Auto) 1 0-10 % Neutrophils # (Auto) 3.6 1.8-7.8 10^3/uL Lymphocytes # (Auto) 2.8 1.0-4.0 10^3/uL Monocytes # (Auto) 0.8 0.0-1.0 10^3/uL Eosinophils # (Auto) 0.3 0.0-0.3 10^3/uL Basophils # (Auto) 0.1 0.0-0.1 10^3/uL Immature Granulocyte # (Auto) 0.0 0.0-0.1 10^3/uL Prothrombin Time 13.3 12.2-14.7 SEC INR Comment 1.0 0.8-1.4 Activated Partial Thromboplast Time 33 24-35 SEC D-Dimer 1.05 H 0.00-0.49 UG/ML Sodium Level 135 135-145 MMOL/L Potassium Level 3.5 L 3.6-5.0 MMOL/L Chloride Level 104 98-107 MMOL/L Carbon Dioxide Level 19 L 21-32 MMOL/L Anion Gap 12 5-14 MMOL/L Blood Urea Nitrogen 16 7-18 MG/DL Creatinine 0.99 0.60-1.30 MG/DL Estimat Glomerular Filtration Rate 60 BUN/Creatinine Ratio 16 Glucose Level 234 H 70-105 MG/DL Calcium Level 9.1 8.5-10.1 MG/DL Corrected Calcium 9.3 8.5-10.1 MG/DL Magnesium Level 1.8 1.6-2.4 MG/DL Total Bilirubin 1.6 H 0.1-1.0 MG/DL Aspartate Amino Transf (AST/SGOT) 12 5-34 U/L Alanine Aminotransferase (ALT/SGPT) 11 0-55 U/L Alkaline Phosphatase 112 40-136 U/L Myoglobin 59.5 10.0-92.0 NG/ML Troponin I < 0.028 < 0.028 <0.028 NG/ML C-Reactive Protein High Sensitivity 3.83 H 0.00-0.50 MG/DL Total Protein 7.1 6.4-8.2 GM/DL Albumin 3.8 3.2-4.5 GM/DL Influenza Type A (RT-PCR) Not Detected Not Detecte Influenza Type B (RT-PCR) Not Detected Not Detecte SARS-CoV-2 RNA (RT-PCR) Not Detected Not Detecte My Orders Orders - DORA ROMERO MD Cbc With Automated Diff (08/14/21 19:15) Magnesium (08/14/21 19:15) Chest 1 View, Ap/Pa Only (08/14/21 19:15) Ekg Tracing (08/14/21 19:15) Comprehensive Metabolic Panel (08/14/21 19:15) Myoglobin Serum (08/14/21 19:15) Protime With Inr (08/14/21 19:15) Partial Thromboplastin Time (08/14/21 19:15) O2 (08/14/21 19:15) Monitor-Rhythm Ecg Trace Only (08/14/21 19:15) Ed Iv/Invasive Line Start (08/14/21 19:15) Troponin I Kt (08/14/21 19:15) Covid 19 Inhouse Test (08/14/21 20:48) Influenza A And B By Pcr (08/14/21 20:48) Hs C Reactive Protein (08/14/21 21:21) Fibrin Degradation Products (08/14/21 21:30) Nitroglycerin 0.4 Mg Btl 25's (Nitrostat (08/14/21 21:30) Aspirin Chewable Tablet (Baby Aspirin Ch (08/14/21 21:30) Troponin I Wilson (08/14/21 21:40) Ct Angio Chest W (08/14/21 22:14) Ed Iv/Invasive Line Start (08/14/21 22:15) Lactated Ringers (Lr 1000 Ml Iv Solution (08/14/21 22:15) Ketorolac Injection (Toradol Injection) (08/14/21 22:30) Iohexol Injection (Omnipaque 350 Mg/Ml 1 (08/14/21 23:00) Received Contrast (Hold Metformin- Contr (08/14/21 23:00) Ns (Ivpb) (Sodium Chloride 0.9% Ivpb Bag (08/14/21 23:00) Ondansetron Injection (Zofran Injectio (08/14/21 23:15) Lidocaine 2% Viscous 15 Ml (Xylocaine Vi (08/14/21 23:15) Antacid Suspension (Mylanta Suspension (08/14/21 23:15) Medications Given in ED Current Medications Medications Dose Ordered Sig/Sara Route Start Time Stop Time Status Last Admin Dose Admin Al Hydrox/Mg Hydrox/Simethicone 30 ml ONCE ONCE PO 08/14/21 23:15 08/14/21 23:16 DC 08/14/21 23:17 30 ML Aspirin 324 mg ONCE ONCE PO 08/14/21 21:30 08/14/21 21:32 DC 08/14/21 21:47 324 MG Iohexol 100 ml ONCE ONCE IV 08/14/21 23:00 08/14/21 23:01 DC 08/14/21 22:53 100 ML Ketorolac Tromethamine 15 mg ONCE ONCE IVP 08/14/21 22:30 08/14/21 22:31 DC 08/14/21 22:41 15 MG Lactated Ringer's 1,000 ml @ 0 mls/hr Q0M ONCE IV 08/14/21 22:15 08/14/21 22:16 DC 08/14/21 22:41 0 MLS/HR Lidocaine HCl 15 ml ONCE ONCE PO 08/14/21 23:15 08/14/21 23:16 DC 08/14/21 23:17 15 ML Ondansetron HCl 4 mg ONCE ONCE IVP 08/14/21 23:15 08/14/21 23:16 DC 08/14/21 23:17 4 MG Sodium Chloride 100 ml ONCE ONCE IV 08/14/21 23:00 08/14/21 23:01 DC 08/14/21 22:53 80 ML Vital Signs/I&O 08/14/21 08/14/21 08/14/21 19:13 19:13 19:13 Temp 36.5 Pulse 108 Resp 18 B/P (MAP) 129/72 (91) Pulse Ox 95 95 O2 Delivery Room Air Room Air Room Air 08/14/21 23:59 Intake Total 1000 ml Balance 1000 ml Blood Pressure Mean: 91 Progress Progress Note : Progress Note Nitroglycerin was not administered due to low normal blood pressures. Neither Toradol nor GI cocktail improved her pain much. Pain was eventually treated with morphine. D-dimer was elevated and CT angiogram was obtained. No significant pathology was identified on angiogram. Although her work-up was grossly unremarkable, and did not seem reasonable to discharge her home with significant ongoing chest pain in the context of known coronary artery disease with unresolved lesions on the most recent cath. Case was reviewed with Dr. Jay who agrees with admission. He requested she be started on Ranolazine Initial ECG Impression Date: Aug 14, 2021 Initial ECG Impression Time: 19:14 Initial ECG Rate: 107 Initial ECG Rhythm: S.Tach Comment Sinus tachycardia with no ST elevation or depression. No abnormal intervals or axis deviation. Diagnostic Imaging Diagonstic Imaging: Xray Plain Films/CT/US/NM/MRI: chest Comments Chest x-ray reviewed by me report reviewed. See report below: NAME: W[facility] SIL[facility] REC#: [id number] PT STATUS: REG ER : 1975 PHYSICIAN: DORA ROMERO MD ADMIT DATE: 08/14/21/ER Signed Date of Exam:08/14/21 CHEST 1 VIEW, AP/PA ONLY EXAMINATION: Chest radiograph, portable AP view. DATE: 08/14/2021 7:36 PM. INDICATION: 46-year-old female, chest pain. COMPARISON: July 27, 2021. FINDINGS: There are median sternotomy wires. Heart size and mediastinal contours are unchanged. There is no identified pneumothorax. There is no large pleural effusion. There is no identified interval focal airspace consolidation. IMPRESSION: No identified acute cardiopulmonary abnormality. Dictated by: Dictated on workstation # [id number] Dict: 08/14/211938 Trans: 08/14/211958 [facility] [id number] Interpreted by: ANDRAE INTERIANO MD Electronically signed by: ANDRAE INTERIANO MD 08/14/211958 Diagonstic Imaging: CT Plain Films/CT/US/NM/MRI: chest Comments CT angiogram chest viewed by me and report reviewed. See report below: NAME: WAN DA SILVA [facility] REC#: [id number] PT STATUS: REG ER : 1975 PHYSICIAN: DORA ROMERO MD ADMIT DATE: 08/14/21/ER Signed Date of Exam:08/14/21 CHEST 1 VIEW, AP/PA ONLY EXAMINATION: Chest radiograph, portable AP view. DATE: 08/14/2021 7:36 PM. INDICATION: 46-year-old female, chest pain. COMPARISON: July 27, 2021. FINDINGS: There are median sternotomy wires. Heart size and mediastinal contours are unchanged. There is no identified pneumothorax. There is no large pleural effusion. There is no identified interval focal airspace consolidation. IMPRESSION: No identified acute cardiopulmonary abnormality. Dictated by: Dictated on workstation # [id number] Dict: 08/14/211938 Trans: 08/14/211958 [facility] [id number] Interpreted by: ANDRAE INTERIANO MD Electronically signed by: ANDRAE INTERIANO MD 08/14/211958 Departure Communication (Admissions) Time/Spoke to Admitting Phy: 00:25 Dr. Davies Time/Spoke to Consulting Phy: 00:01 Dr. Jay Impression Primary Impression: Atypical chest pain Additional Impression: Nausea vomiting and diarrhea Disposition: ADMITTED INPATIENT Condition: Improved Admissions Decision to Admit Reason: Admit from ER (General) Decision to Admit/Date: Aug 15, 2021 Time/Decision to Admit Time: 00:01 Departure-Patient Inst. Referrals: EDWAR LOBO DO (PCP/Family) Primary Care Physician DORA ROMERO MD Aug 14, 2021 23:12
[2021-08-14] MEDS ORDERED: ONDANSETRON 4 MG/2 ML (SDV) Z0FRAN IVP ONE (23:15)
[2021-08-14] MEDS ORDERED: LIDOCAINE 2% VISCOUS 15 ML UDC PO ONE (23:15)
[2021-08-14] MEDS ORDERED: ANTACID SUSP 30 ML UDC (MYLANTA) PO ONE (23:15)
[2021-08-15] VITALS (20 sets, daily range): BP systolic 96–145; BP diastolic 60–80
[2021-08-15] MEDS ORDERED: morphine INJ 10 MG/ML 1ML (SYR OR VIAL) IVP STA (00:24)
[2021-08-15] MEDS ORDERED: PATIENT MAY USE OWN MEDS, ALL MC SCH (01:30)
[2021-08-15] MEDS: RANOLAZINE ER 500 MG TAB (RANEXA) PO SCH ×3 (01:56→23:06)
[2021-08-15] MEDS: LACTATED RINGERS 1,000 ML IV SCH ×3 (01:57→16:44)
[2021-08-15] MEDS: ONDANSETRON 4 MG/2 ML (SDV) Z0FRAN IV PRN ×2 (02:41→08:18)
[2021-08-15] MEDS: morphine INJ 4 MG/ML 1 ML (VIAL/SYRINGE) IV PRN ×5 (02:41→14:04)
[2021-08-15 06:36] LABS: BUN/CREATININE RATIO 18; CALCIUM 8.9 MG/DL (8.5-10.1); CARBON DIOXIDE 19 MMOL/L (21-32); CHLORIDE 103 MMOL/L (98-107); CHOLESTEROL 191 MG/DL (< 200); CREATININE SERUM 0.88 MG/DL (0.60-1.30); GFR ESTIMATED 69; GLUCOSE 198 MG/DL (70-105); HDL CHOLESTEROL 28 MG/DL (40-60); POTASSIUM 3.6 MMOL/L (3.6-5.0); SODIUM 134 MMOL/L (135-145); TRIGLYCERIDES 149 MG/DL (<150); VLDL CHOLESTEROL 30 MG/DL (5-40)
[2021-08-15] MEDS: PANTOPRAZOLE 40 MG (PROTONIX) TAB PO SCH ×2 (08:18→23:06)
[2021-08-15] MEDS: ASPIRIN E.C. 81 MG (ECOTRIN) TAB PO SCH (08:18)
[2021-08-15] MEDS ORDERED: PANTOPRAZOLE 40 MG (PROTONIX) VIAL IV SCH (09:00)
[2021-08-15] MEDS ORDERED: RANOLAZINE ER 500 MG TAB (RANEXA) PO ONE (09:00)
--- NOTE | 2021-08-15 10:45 | Consultation-Cardiology ---
HPI-Cardiology Cardiology Consultation: Date of Consultation 08/15/2021 Date of Admission 08/14/2021 Attending Physician Shonda Davies MD Admitting Physician Willem Chamorro DO Consulting Physician SYED ALAN JR, MD HPI: Time Seen by a Provider: 10:41 Chief Complaint: Reason for consultation: Chest pain. At the pleasure of seeing Melanie on the medical surgical unit today at [facility] in [place], [place]. She has a history of known coronary artery disease and follows with one of my partners. Yesterday she was laying in bed and suddenly developed substernal chest discomfort associated with shortness of breath. She describes this as a squeezing sensation in the center of her chest. She rates this at 9 out of 10. She did not take any nitroglycerin because she has chronically low blood pressure. When the pain persisted, she came to the emergency room for further evaluation. In the emergency room she was given a GI cocktail and she does not feel as though this helped with her chest discomfort. She was given morphine and her chest discomfort improved but then would come back. She was admitted to the hospital for further evaluation. I also had the emergency room give her ranolazine. This morning she is still having a squeezing chest discomfort with shortness of breath. She rates this at 7/10. She denies paroxysmal nocturnal dyspnea, orthopnea, palpitations, lightheadedness, syncope, or ankle edema. Because of the chest discomfort, a cardiology consultation was requested. Certain portions of this document may have been dictated utilizing voice recognition technology. Inherent to this technology, typographical and grammatical errors may exist. As much as I am diligent to identify and correct these mistakes, some errors may remain in the document. Review of Systems-Cardiology Review of Systems Other comments Review of 10 organ systems is as per the history of present illness, otherwise negative. [id number] Hx Patient Social History Smoking Status: Former Smoker 2nd Hand Smoke Exposure: No Have you traveled recently?: No Alcohol Use?: No Pt feels they are or have been: No Immunizations Up To Date Tetanus Booster (TDap): More than 5yrs Date of Pneumonia Vaccine: Jun 20, 2013 Date of Influenza Vaccine: May 20, 2021 Past Medical History PMH As described under Assessment. Family Medical History Family Medical History: Has family h/o of early CAD Allergies and Home Medications Allergies Coded Allergies: Penicillins (Verified Allergy, Unknown, 05/16/21) Sulfa (Sulfonamide Antibiotics) (Verified Allergy, Unknown, 05/16/21) naproxen (Verified Allergy, Unknown, HIVES, NAUSEA--can take ibuprofen, 05/16/21) Patient Home Medication List Home Medication List Reviewed: Yes Albuterol Sulfate (Proair Hfa) 1 Puff Puff, 2 PUFF IH Q4H PRN for SHORTNESS OF BREATH, (Reported) Entered as Reported by: SONJA OH on 05/26/21 1059 Aripiprazole (Abilify) 15 Mg Tablet, 7.5 MG PO DAILY, (Reported) Entered as Reported by: SONJA OH on 06/27/21 1036 Aspirin (Aspirin EC) 81 Mg Tablet.dr, 81 MG PO DAILY, (Reported) Entered as Reported by: SONJA HO on 05/24/21 0959 Atorvastatin Calcium (Atorvastatin Calcium) 40 Mg Tablet, 40 MG PO HS, (Reported) Entered as Reported by: SONJA OH on 05/24/21 0959 Clopidogrel Bisulfate (Plavix) 75 Mg Tablet, 75 MG PO DAILY, (Reported) Entered as Reported by: SONJA OH on 05/26/21 1059 Famotidine (Famotidine) 20 Mg Tablet, 20 MG PO BID PRN for INDIGESTION Prescribed by: MITCHELL LEBRON on 06/27/21 1127 Hydroxyzine HCl (Hydroxyzine HCl) 25 Mg Tablet, 25 MG PO BID PRN for ANXIETY, (Reported) Entered as Reported by: SONJA OH on 06/27/21 1036 Ibuprofen (Ibuprofen) 200 Mg Tablet, 200-400 MG PO Q8H PRN for PAIN-MILD (1-4), (Reported) Entered as Reported by: SONJA OH on 06/27/21 1038 Metoprolol Tartrate (Metoprolol Tartrate) 25 Mg Tablet, 12.5 MG PO BID, (Reported) Entered as Reported by: SONJA OH on 05/26/21 1059 Pantoprazole Sodium (Pantoprazole Sodium) 40 Mg Tablet., 40 MG PO DAILY Prescribed by: MITCHELL LEBRON on 06/27/21 1127 Prednisone (Prednisone) 20 Mg Tab, 40 MG PO DAILY Prescribed by: KISHORE OSWALD on 07/27/21 1438 Sertraline HCl (Sertraline HCl) 100 Mg Tablet, 100 MG PO HS, (Reported) Entered as Reported by: SONJA SIEGELNT on 06/27/21 1036 Exam Vital Signs Vital Signs Date Time Temp Pulse Resp B/P (MAP) Pulse Ox O2 Delivery O2 Flow Rate FiO2 08/15/21 08:41 87 08/15/21 08:24 Room Air 08/15/21 08:00 36.5 22 145/70 (95) 92 Physical Exam General: Alert. No acute distress. Well nourished and appears stated age. She is obese. Eye: Extraocular movements are intact. Conjunctivae are clear. There are no xanthelasma. HENT: She is edentulous. Normocephalic. Atraumatic. Carotid pulsations 2/2 without bruits. Neck: Jugular venous pressure does not appear elevated. No thyromegaly appreciated. Respiratory: Lungs are clear to auscultation. Respirations are non-labored. B reath sounds are equal. Symmetrical chest wall expansion. Cardiovascular: Normal rate. Regular rhythm. No murmur. No gallop. Point of maximal impulse is not appear displaced. Good pulses equal in all extremities. No edema. Gastrointestinal: Soft. Normal bowel sounds. Skin: Skin turgor is normal. There is no pallor. Musculoskeletal: No kyphosis or scoliosis appreciated. Neurologic: Alert and oriented to person, place, time. Cranial nerves 3-12 appear grossly intact. The patient has good motor tone strength in the upper and lower extremities bilaterally. Psychiatric: Cooperative. Appropriate mood & affect. Labs Laboratory Tests Test 08/14/21 19:28 08/14/21 20:58 08/14/21 21:45 08/15/21 05:49 Range/Units White Blood Count 7.5 4.3-11.0 10^3/uL Red Blood Count 4.13 3.80-5.11 10^6/uL Hemoglobin 13.3 11.5-16.0 g/dL Hematocrit 39 35-52 % Mean Corpuscular Volume 94 80-99 fL Mean Corpuscular Hemoglobin 32 25-34 pg Mean Corpuscular Hemoglobin Concent 34 32-36 g/dL Red Cell Distribution Width 11.7 10.0-14.5 % Platelet Count 317 130-400 10^3/uL Mean Platelet Volume 10.4 9.0-12.2 fL Immature Granulocyte % (Auto) 0 % Neutrophils (%) (Auto) 47 42-75 % Lymphocytes (%) (Auto) 37 12-44 % Monocytes (%) (Auto) 11 0-12 % Eosinophils (%) (Auto) 4 0-10 % Basophils (%) (Auto) 1 0-10 % Neutrophils # (Auto) 3.6 1.8-7.8 10^3/uL Lymphocytes # (Auto) 2.8 1.0-4.0 10^3/uL Monocytes # (Auto) 0.8 0.0-1.0 10^3/uL Eosinophils # (Auto) 0.3 0.0-0.3 10^3/uL Basophils # (Auto) 0.1 0.0-0.1 10^3/uL Immature Granulocyte # (Auto) 0.0 0.0-0.1 10^3/uL Prothrombin Time 13.3 12.2-14.7 SEC INR Comment 1.0 0.8-1.4 Activated Partial Thromboplast Time 33 24-35 SEC D-Dimer 1.05 H 0.00-0.49 UG/ML Sodium Level 135 134 L 135-145 MMOL/L Potassium Level 3.5 L 3.6 3.6-5.0 MMOL/L Chloride Level 104 103 98-107 MMOL/L Carbon Dioxide Level 19 L 19 L 21-32 MMOL/L Anion Gap 12 12 5-14 MMOL/L Blood Urea Nitrogen 16 16 7-18 MG/DL Creatinine 0.99 0.88 0.60-1.30 MG/DL Estimat Glomerular Filtration Rate 60 69 BUN/Creatinine Ratio 16 18 Glucose Level 234 H 198 H 70-105 MG/DL Calcium Level 9.1 8.9 8.5-10.1 MG/DL Corrected Calcium 9.3 8.5-10.1 MG/DL Magnesium Level 1.8 1.6-2.4 MG/DL Total Bilirubin 1.6 H 0.1-1.0 MG/DL Aspartate Amino Transf (AST/SGOT) 12 5-34 U/L Alanine Aminotransferase (ALT/SGPT) 11 0-55 U/L Alkaline Phosphatase 112 40-136 U/L Myoglobin 59.5 10.0-92.0 NG/ML Troponin I < 0.028 < 0.028 < 0.028 <0.028 NG/ML C-Reactive Protein High Sensitivity 3.83 H 0.00-0.50 MG/DL Total Protein 7.1 6.4-8.2 GM/DL Albumin 3.8 3.2-4.5 GM/DL Influenza Type A (RT-PCR) Not Detected Not Detecte Influenza Type B (RT-PCR) Not Detected Not Detecte SARS-CoV-2 RNA (RT-PCR) Not Detected Not Detecte Triglycerides Level 149 <150 MG/DL Cholesterol Level 191 < 200 MG/DL LDL Cholesterol Direct 155 H 1-129 MG/DL VLDL Cholesterol 30 5-40 MG/DL HDL Cholesterol 28 L 40-60 MG/DL ECG Impression ECG Comment Sinus rhythm with probable old inferior infarct with lateral ST-T wave changes which are new when compared to previous tracings earlier this month. Diagnosis/Problems Diagnosis/Problems (1) Coronary artery disease with unstable angina pectoris Assessment & Plan: Her troponin levels are negative but she has lateral changes on her electrocardiogram that could be related to ischemia in the obtuse marginal branch system. She has persistent chest discomfort. She has not tolerated antianginal medications in the past due to low blood pressures. I have started her on ranolazine and she was supposed to receive 1 dose last evening. Despite receiving this antianginal medication, she has ongoing chest discomfort. Her symptoms did not seem to improve with the gastrointestinal cocktail. Given the ongoing chest discomfort with the new changes on her electrocardiogram, I feel that she warrants further evaluation with a cardiac catheterization. In the interim, she should continue aspirin, clopidogrel, and statin medication. (2) Mixed hyperlipidemia Assessment & Plan: Her LDL level is elevated. She tells me she has been taking her atorvastatin. I will double the dose. (3) Gastroesophageal reflux disease without esophagitis Assessment & Plan: Unclear whether or not this could be contributing to her chest discomfort. I have doubled the dose of pantoprazole to twice daily dosing. (4) Type 2 diabetes mellitus with complication Assessment & Plan: This will be managed by the hospitalist. If she is in fact taking Metformin at home, this will need to be held for cardiac catheterization. I have added a HbA1c level to previous blood sample. (5) Obesity Assessment & Plan: She needs to work on weight loss. SYED ALAN JR, MD Dec 27, 2021 10:45
[2021-08-15] MEDS ORDERED: NS IV 1000 ML 1,000 ML IV ONE (11:00)
[2021-08-15] MEDS ORDERED: CATHETER FLUSH 10 ML SYR IV PRN (11:00)
[2021-08-15] MEDS: inSUlin ASPART (NovoLOG) 1 UNIT/0.01 ML (CHARGE PER UNIT) SC SCH ×3 (12:07→21:31)
[2021-08-15] MEDS ORDERED: inSUlin ASPART (NovoLOG) 1 UNIT/0.01 ML (CHARGE PER UNIT) SC SCH (15:00)
--- NOTE | 2021-08-15 15:44 | Pre-Op Note & Conscious Sedat ---
Pre-Operative Progress Note H&P Reviewed The H&P was reviewed, patient examined and no changes noted. Date H&P Reviewed: Aug 15, 2021 Time H&P Reviewed: 15:44 Pre-Op Diagnosis: Coronary artery disease with unstable angina Conscious Sedation Pre-Proced ASA Score 3 For ASA 3 and 4: Consider anesthesia and medical clearance. Also, for patients with a history of failed moderate sedation consider anesthesia. Airway Lungs Heart ASA score ASA 1: a normal healthy patient ASA 2: a patient with a mild systemic disease (mid diabetes, controlled hypertension, obesity ASA 3: a patient with a severe systemic disease that limits activity (angina, COPD, prior Myocardial infarction) ASA 4: a patient with an incapacitating disease that is a constant threat to life (CHF, renal failure) ASA 5: a moribund patient not expected to survive 24 hrs. (ruptured aneurysm) ASA 6: a declared brain- patient whose organs are being harvested. For emergent operations, add the letter E after the classification Mallampati Classification Grade 3 Sedation Plan Analgesia, Amnesia, Plan communicated to team members, Discussed options with patient/fam, Discussed risks with patient/fam The patient is an appropriate candidate to undergo the planned procedure, sedation, and anesthesia. The patient immediately re-assessed prior to indication. SYED ALAN JR, MD Aug 15, 2021 15:44
[2021-08-15] MEDS ORDERED: METF-397 PO (15:52)
[2021-08-15] MEDS ORDERED: ESZO2TAB4 PO (15:55)
[2021-08-15] MEDS ORDERED: FAMO20TA3 PO (15:55)
[2021-08-15] MEDS ORDERED: ACET-2267 PO (16:01)
[2021-08-15] MEDS ORDERED: fentaNYL INJ 100 MCG/2 ML AMP ONE (16:19)
[2021-08-15] MEDS ORDERED: VERAPAMIL 5 MG/2 ML (CALAN) VIAL IV ONE (16:19)
[2021-08-15] MEDS ORDERED: HEParin 1000 UNIT/ML (10ML VIAL) FOR BOLUS ONE (16:20)
[2021-08-15] MEDS ORDERED: NITRO DRIP 25000 MCG/D5W 250 ML IV ONE (16:20)
[2021-08-15] MEDS ORDERED: MIDAZOLAM 5 MG/5 ML (VERSED) VIAL ONE (16:20)
[2021-08-15] MEDS ORDERED: LIDOCAINE 1% INJ 20 ML 20 ML VIAL ONE (16:20)
[2021-08-15] MEDS ORDERED: NS IV 1000 ML 1,000 ML ONE (16:20)
[2021-08-15] MEDS ORDERED: HEParin (CATH LAB) 2,000 ML IV ONE (16:21)
[2021-08-15] MEDS ORDERED: PATIENT MAY USE OWN MEDS, ALL PO SCH (18:00)
--- NOTE | 2021-08-15 18:07 | Cardiac Cath Report ---
CARDIAC CATHETERIZATION DATE OF PROCEDURE: 08/15/2021 INDICATION: Coronary artery disease with unstable angina. HISTORY: The patient is a 46 year old female with a known history of coronary artery disease with previous coronary artery bypass graft with left internal mammary artery graft to the left anterior descending coronary artery which is known to be atretic and a saphenous vein graft to an obtuse marginal branch. She also has previous stents in the mid left anterior descending coronary artery and proximal down to distal right coronary artery. She presented to the hospital with chest pain concerning for angina. She had negative troponin levels but new T wave inversion in the lateral limb leads. Her chest discomfort would not resolve despite adjusting her antianginal medication. Therefore, she is now referred for further evaluation with a cardiac catheterization. PROCEDURES PERFORMED: 1. Left heart catheterization with hemodynamic measurements. 2. Diagnostic chilkoot coronary angiography. 3. Diagnostic bypass graft angiography. PROCEDURE DESCRIPTION: After informed consent and in the fasting state, left heart catheterization was performed through the right radial artery utilizing a 6 Martiniquais system by percutaneous approach. A 5 Martiniquais JR4 catheter was utilized to interrogate the left ventricle and the right coronary artery. A 5 Martiniquais AL- 1 catheter was utilized to interrogate the vein graft to the obtuse marginal branch. I was unable to engage the left coronary artery with a JL4, JL 3.5, AL 2, or a multipurpose catheter from the right radial approach. Therefore, I gained access to the right femoral artery utilizing a 5 Martiniquais micropuncture kit. The 5 Martiniquais sheath was exchanged for a 6 Martiniquais sheath. I subsequently was able to engage the left coronary artery with a 6 Martiniquais JL 4 catheter. All catheters were exchanged over a guidewire. Following the procedure, a vascular band was applied to the radial artery access site and the sheath was removed with good hemostasis. Following the procedure, right femoral artery angiography was performed which showed the sheath to be entering just at the bifurcation. A Mynx closure device was deployed for hemostasis. RESULTS: HEMODYNAMICS: The aortic pressure was 125/87 mmHg. The left ventricular pressure was 130/0 mmHg with a left ventricular end-diastolic pressure of 20 mmHg. There was no significant pressure gradient upon pullback across aortic valve. CORONARY ANGIOGRAPHY: Left main coronary artery: Free of significant disease. Left anterior descending coronary artery: There was a stent in the mid segment just distal to the first diagonal branch which was widely patent. The remainder of the vessel was free of significant disease. There was an area of "tenting" in the distal left anterior descending coronary artery which had surgical clips in this area which was most likely the previous touchdown of the left internal mammary artery graft which is known to be atretic. There was a moderate sized first diagonal branch which was free of significant disease. Left circumflex coronary artery: Free of significant disease. Right coronary artery: Dominant and there was stents from the proximal down to the distal segment. The vessel was totally occluded in the midsegment. This is known to be a chronic total occlusion within previously placed stents. This vessel was not bypassed. No collaterals could be seen filling the distal vessel. BYPASS GRAFT ANGIOGRAPHY Left internal mammary artery graft to left anterior descending coronary artery: This graft was not studied since it is known to be atretic. Saphenous vein graft to obtuse marginal branch: Widely patent with good distal runoff. There is a stent in the ostium which is widely patent. IMPRESSION: 1. Normal central aortic pressure with elevated left ventricular end-diastolic pressure. 2. Patent stent in the mid left anterior descending coronary artery. 3. Total occlusion of the mid right coronary artery within previously placed stents. This is known to be a chronic total occlusion. 4. The left internal mammary artery graft to left anterior descending coronary artery is known to be atretic and was not studied during this procedure. 5. Patent saphenous vein graft to the obtuse marginal branch with a patent stent in the ostium. 6. The patient is known to have normal left ventricular systolic function with an estimated ejection fraction of 60-65% by echocardiogram performed earlier today. 7. The patient may be having angina from small vessel disease. Certain portions of this document may have been dictated utilizing voice recognition technology. Inherent to this technology, typographical and grammatical errors may exist. As much as I am diligent to identify and correct these mistakes, some errors may remain in the document. SYED ALAN JR, MD Aug 15, 2021 18:07
[2021-08-15] MEDS: NS IV 1000 ML 1,000 ML IV SCH (21:00)
--- NOTE | 2021-08-15 21:36 | History & Physical-Hospitalist ---
History of Present Illness HPI/Chief Complaint Melanie Champagne is a 46 year old female with PMH HTN, HLD, CAD, COPD, T2DM, GERD, hiatal hernia, obesity, who presented with chest pain. She is still having chest pressure upon my exam. She denies radiation. She reports associated nausea. She denies diaphoresis. She denies shortness of breath. She denies fevers, cough, abdominal pain. She had a heart cath with stent placement a couple months ago. Source: patient Exam Limitations: no limitations Date Seen 08/15/21 Time Seen by a Provider: 11:45 Attending Physician Raine Hernandez MD PCP Willem Chamorro DO Referring Physician Date of Admission Aug 15, 2021 at 00:15 Home Medications & Allergies Home Medications Reviewed patient Home Medication Reconciliation performed by pharmacy medication reconciliations crystal growing technician and/or nursing. Patients Allergies have been reviewed. Allergies Allergies Coded Allergies Penicillins (Verified Allergy, Unknown, 05/16/21) Sulfa (Sulfonamide Antibiotics) (Verified Allergy, Unknown, 05/16/21) naproxen (Verified Allergy, Unknown, HIVES, NAUSEA--can take ibuprofen, 05/16/21) Past Kntijkb-[id number]-Ggqwmg Hx Patient Social History Tobacco Use?: No Smoking Status: Former Smoker Use of E-Cig and/or Vaping dev: No Substance use?: No Alcohol Use?: No Pt feels they are or have been: No Immunizations Up To Date Date of Influenza Vaccine: May 20, 2021 First/Initial COVID19 Vaccinat: not vaccinated Second COVID19 Vaccination Mark: not vaccinated Tetanus Booster (TDap): More Than 5 Years Date of Pneumonia Vaccine: Jun 20, 2013 Seasonal Allergies Seasonal Allergies: No Current Status Advance Directives: No Communicates: Verbally Primary Language: Slovak Preferred Spoken Language: Slovak Is interpretation needed?: No Past Medical History Surgeries: Abdominal, Adenoidectomy, Cardiac, CABG, Coronary Stent, Ear Surgery, Gallbladder, Orthopedic, Tonsillectomy, Tracheostomy Asthma, Chronic Bronchitis, COPD Coronary Artery Disease, Deep Vein Thrombosis, Heart Attack, High Cholesterol, Hypertension Headaches /Migraines, Seizure Disorder Sexually Transmitted Disease: Yes (HERPES) Gastroesophageal Reflux, Esophagitis, Hiatal Hernia, Gall Bladder Disease Arthritis Hypothyroidsim, Diabetes, Non-Insulin dep Chronic Ear Infection Hearing Impairment: Hard of Hearing Cervical Did You Recieve Any Treatments: Yes What Type of Treatment Did You: Surgical Intervention Sleep Difficulties, Anxiety, Suicide Attempts, Depression Blood Disorders: No Adverse Reaction/Blood Tranf: No See Problem List Family Medical History No Pertinent Family Hx ADDITIONAL PAST MEDICAL AND PROCEDURAL HISTORY: -FABRICE FUNDOPLICATION -CHOLECYSTECTOMY -TONSILLECTOMY/ADENOIDECTOMY -TRACHEOSTOMY/LATER REMOVAL -PT HAD NSTEMI AND WAS ADMITTED 04/22/20-04/24/20, HAD CARDIAC CATH 04/23/20 AND HAD STENT X 1 TO RCA -PT HAS PREVIOUSLY HAD A CABG IN 2009, MULTIPLE STENTS TO RCA, AND STENT TO CIRCUMFLEX IN THE PAST. CARDIAC CATH 05/24/[address] ROBLES: CONCLUSIONS: 1. Coronary artery disease as detailed above. The left anterior descending and left circumflex arteries have patent stents. An obtuse marginal branch of the left circumflex has a patent aortocoronary graft, this graft had 70% ostial stenosis and was successfully stented with Radha 2.5 x 18 mm stent, deployed at 20 atmospheres. The right coronary artery had 90% proximal stenosis, which went to 50% stenosis following balloon angioplasty. The mid and distal right coronary artery have in-stent occlusion. This is a very long segment of occlusion and attempts at percutaneous intervention to this portion of the vessel were unsuccessful. 2. Mild elevation of left ventricular end-diastolic pressure. DISCUSSION AND RECOMMENDATIONS: Risk factor modification has been advised. Dual antiplatelet therapy is being continued. Because of low blood pressure, she is not a suitable candidate for beta blockers or MORRO inhibitors or angiotensin receptor blockers. Statin therapy is being continued. Review of Systems Constitutional: no symptoms reported EENTM: no symptoms reported Respiratory: no symptoms reported Cardiovascular: chest pain Gastrointestinal: no symptoms reported Genitourinary: no symptoms reported Musculoskeletal: no symptoms reported Skin: no symptoms reported Psychiatric/Neurological: No Symptoms Reported Physical Exam Physical Exam Vital Signs Vital Signs - First Documented Capillary Refill : Less Than 3 Seconds Height, Weight, BMI Height: 5'8.00" Weight: 189lbs. 0.0oz. [id number]; 32.57 BMI Method:Stated General Appearance: No Apparent Distress, Obese HEENT: PERRL/EOMI, Pharynx Normal Neck: Normal Inspection, Supple Respiratory: Lungs Clear, Normal Breath Sounds, No Respiratory Distress Cardiovascular: Regular Rate, Rhythm, No Edema, No Murmur Gastrointestinal: Normal Bowel Sounds, Non Tender, Soft Extremity: Normal Inspection, Non Tender, No Pedal Edema Neurologic/Psychiatric: Alert, Oriented x3, No Motor/Sensory Deficits, Normal Mood/Affect Skin: Normal Color, Warm/Dry Results Results/Procedures Labs Laboratory Tests 08/14/21 19:28 08/15/21 05:49 Patient resulted labs reviewed. Imaging: Reviewed Imaging Report Assessment/Plan Admission Diagnosis Chest pain Admission Status: Observation Assessment and Plan Chest pain CAD GERD Hiatal hernia CT chest with hiatal hernia Troponin normal Cardiology consulted Known CAD Left heart cath planned for today Continue PPI T2DM Levemir Sliding scale HTN HLD COPD Obesity Continue home meds DVT prophylaxis: Lovenox Diagnosis/Problems Diagnosis/Problems (1) Chest pain Status: Acute (2) CAD (coronary artery disease) Status: Acute (3) HLD (hyperlipidemia) Status: Chronic (4) T2DM (type 2 diabetes mellitus) Status: Chronic (5) Obesity Status: Chronic RAINE HERNANDEZ MD Aug 15, 2021 21:36
[2021-08-15] MEDS ORDERED: ENOXAPARIN 40 MG/0.4 ML (LOVENOX) SYR SC SCH (21:45)
[2021-08-16 04:46] VITALS: BP 103/55
[2021-08-16] MEDS: NS IV 1000 ML 1,000 ML IV SCH (05:22)
[2021-08-16] MEDS: inSUlin ASPART (NovoLOG) 1 UNIT/0.01 ML (CHARGE PER UNIT) SC SCH ×2 (05:52→11:41)
[2021-08-16 08:00] VITALS: BP 105/54
[2021-08-16] MEDS: RANOLAZINE ER 500 MG TAB (RANEXA) PO SCH (08:37)
[2021-08-16] MEDS: PANTOPRAZOLE 40 MG (PROTONIX) TAB PO SCH (08:37)
[2021-08-16] MEDS: ASPIRIN E.C. 81 MG (ECOTRIN) TAB PO SCH (08:38)
[2021-08-16] MEDS ORDERED: CLOPIDOGREL 75 MG (PLAVIX) TABLET PO SCH (09:00)
[2021-08-16] MEDS ORDERED: meTOprolol TARTRATE 25 MG (LOPRESSOR) TABLET PO SCH (09:00)
[2021-08-16 12:00] VITALS: BP 121/67
[2021-08-16] MEDS ORDERED: ATOR80TA76 PO (12:13)
[2021-08-16] MEDS ORDERED: RANO500T3 PO (12:13)
[2021-08-16 14:55] VITALS: BP 121/67
[2021-08-16] MEDS ORDERED: SERTRALINE 100 MG (ZOLOFT) TAB PO SCH (21:00)
--- NOTE | 2021-08-16 22:32 | Discharge Summary ---
Discharge Summary Hospital Course Problems/Dx: (1) Chest pain Status: Acute (2) CAD (coronary artery disease) Status: Acute (3) HLD (hyperlipidemia) Status: Chronic (4) T2DM (type 2 diabetes mellitus) Status: Chronic (5) Obesity Status: Chronic Hospital Course Date of Admission: Aug 15, 2021 at 00:15 Admission Diagnosis: Chest pain Family Physician/Provider: Willem Chamorro DO Date of Discharge: 08/16/21 Discharge Diagnosis: CAD Hospital Course: Melanie Champagne is a 46 year old female with CAD who was admitted with chest pain. Cardiology was consulted and assisted with her care. Her troponin remained within normal limits. She underwent a left heart catheterization which showed no CAD amenable to intervention. She was started on Ranolazine due to small vessel CAD. Her Lipitor was increased. She was discharged home in stable condition. She should follow up with Cardiology and her PCP. Labs and Pending Lab Test: Laboratory Tests 08/16/21 05:50: Glucometer 148H 08/16/21 11:37: Glucometer 172H Home Meds Active Atorvastatin Calcium 80 Mg Tablet 80 Mg PO HS 30 Days Ranexa (Ranolazine) 500 Mg Tab.er.12h 1,000 Mg PO BID 30 Days Reported Tylenol Extra Strength (Acetaminophen) 500 Mg Tablet 500 Mg PO Q8H PRN Acid Plant Breeder Scientist (FAMOTIDINE) (Famotidine) 20 Mg Tablet 20 Mg PO BID Lunesta (Eszopiclone) 2 Mg Tablet 2 Mg PO HS Metformin HCl 500 Mg Tablet 500 Mg PO DAILY Hydroxyzine HCl 25 Mg Tablet 25 Mg PO BID PRN Abilify (Aripiprazole) 15 Mg Tablet 7.5 Mg PO DAILY TAKES OF A 15MG TAB Sertraline HCl 100 Mg Tablet 100 Mg PO HS Metoprolol Tartrate 25 Mg Tablet 12.5 Mg PO BID TAKES OF A 25MG TAB Plavix (Clopidogrel Bisulfate) 75 Mg Tablet 75 Mg PO DAILY Aspirin EC (Aspirin) 81 Mg Tablet.dr 81 Mg PO DAILY Assessment/Pt Instructions See instructions Discharge Planning: <30 minutes discharge planning Discharge Instructions Discharge Diet: No Restrictions Activity as Tolerated: Yes Consultations Cardiology Discharge Physical Examination Vital Signs Vital Signs Date Time Temp Pulse Resp B/P (MAP) Pulse Ox O2 Delivery O2 Flow Rate FiO2 08/16/21 14:55 36.4 85 22 121/67 91 Room Air 3.00 General Appearance: No Apparent Distress, Obese Respiratory: Lungs Clear, Normal Breath Sounds, No Respiratory Distress Cardiovascular: Regular Rate, Rhythm, No Edema, No Murmur Gastrointestinal: Normal Bowel Sounds, Non Tender, Soft Extremity: Normal Inspection, Non Tender, No Pedal Edema Skin: Normal Color, Warm/Dry Neurologic/Psychiatric: Alert, Oriented x3, No Motor/Sensory Deficits, Normal Mood/Affect Allergies: Coded Allergies: Penicillins (Verified Allergy, Unknown, 05/16/21) Sulfa (Sulfonamide Antibiotics) (Verified Allergy, Unknown, 05/16/21) naproxen (Verified Allergy, Unknown, HIVES, NAUSEA--can take ibuprofen, 05/16/21) Discharge Summary Date of Admission Aug 15, 2021 at 00:15 Date of Discharge Aug 16, 2021 at 14:50 Discharge Date: Aug 16, 2021 Discharge Time: 14:50 Admission Diagnosis Chest pain Consults/Procedures Consulations Cardiology Procedures Left heart catheterization Discharge Diagnosis Small vessel CAD (1) Small vessel coronary artery disease Status: Acute (2) Chest pain Status: Acute (3) CAD (coronary artery disease) Status: Acute (4) HLD (hyperlipidemia) Status: Chronic (5) T2DM (type 2 diabetes mellitus) Status: Chronic (6) Obesity Status: Chronic RAINE HERNANDEZ MD Aug 16, 2021 22:31
== END 2021-08-16 14:50 | disposition home or self-care (01) ==
LOC: EDUNIT# 19:12 → ER 19:13 → 4TH 08-15 00:15
PROVIDERS: ADMIT Internal Medicine; ATTEND Internal Medicine
DX: I25.110 Atherosclerotic heart disease of native coronary artery with unstable angina pectoris (principal); J44.9 Chronic obstructive pulmonary disease, unspecified; I10 Essential (primary) hypertension; E78.00 Pure hypercholesterolemia, unspecified; F41.9 Anxiety disorder, unspecified; F32.A Depression, unspecified; K21.00 Gastro-esophageal reflux disease with esophagitis, without bleeding; M19.90 Unspecified osteoarthritis, unspecified site; E03.9 Hypothyroidism, unspecified; E66.9 Obesity, unspecified; E78.2 Mixed hyperlipidemia; E11.8 Type 2 diabetes mellitus with unspecified complications; I25.2 Old myocardial infarction; Z79.84 Long term (current) use of oral hypoglycemic drugs; Z79.82 Long term (current) use of aspirin; Z79.02 Long term (current) use of antithrombotics/antiplatelets; Z95.5 Presence of coronary angioplasty implant and graft; Z79.899 Other long term (current) drug therapy; Z79.1 Long term (current) use of non-steroidal anti-inflammatories (NSAID); Z87.891 Personal history of nicotine dependence; Z95.1 Presence of aortocoronary bypass graft; Z86.718 Personal history of other venous thrombosis and embolism; Z68.37 Body mass index [BMI] 37.0-37.9, adult
CPT/HCPCS: 71045; 71275; 80048; 80053; 80061; 82947 ×2; 83036; 83735; 83874; 84484 ×2; 85025; 85379; 85610; 85730; 86141; 87636; 93005 ×3; 93041; 93306; 93459; 99284; C1760; C1887; C1894; G0378; 36415

== ENCOUNTER 2021-09-09 17:39 | Emergency (ER) | payer MEDICARE, MEDICAID ==
[~2021-09-09] VITALS: Ht 172.7 cm; Wt 97.5 kg
[~2021-09-09 17:39] MED LIST changes: +ACET-2267 PO; +ESZO2TAB4 PO; +FAMO20TA3 PO; +RANO500T3 PO
--- NOTE | 2021-09-09 17:51 | ED Chest Pain ---
General Chief Complaint: Chest Pain Stated Complaint: CHEST PAIN, DIZZINESS Source: patient Exam Limitations: no limitations (TAMRA CABALLERO APRN) History of Present Illness Date Seen by Provider: Sep 09, 2021 Time Seen by Provider: 17:49 Initial Comments To ER by EMS [place] with reports of chest pain that began at around 430 this evening. She had associated nausea and pain down left arm. Timing/Duration: 24 hours Severity/Quality: moderate Location: substernal Radiation: no radiation Activities at Onset: none ASA po CHIEF OPERATOR: No NTG SL CHIEF OPERATOR: No Associated Symptoms: denies symptoms (TAMRA CABALLERO APRN) Allergies and Home Medications Allergies Coded Allergies: Penicillins (Verified Allergy, Unknown, 05/16/21) Sulfa (Sulfonamide Antibiotics) (Verified Allergy, Unknown, 05/16/21) naproxen (Verified Allergy, Unknown, HIVES, NAUSEA--can take ibuprofen, 05/16/21) Patient Home Medication List Home Medication List Reviewed: Yes (TAMRA CABALLERO APRN) Acetaminophen (Tylenol Extra Strength) 500 Mg Tablet, 500 MG PO Q8H PRN for PAIN-MILD (1-4), (Reported) Entered as Reported by: DOLORES LARIOS on 08/15/21 1601 Aripiprazole (Abilify) 15 Mg Tablet, 7.5 MG PO DAILY, (Reported) Entered as Reported by: SONJA OH on 06/27/21 1036 Aspirin (Aspirin EC) 81 Mg Tablet.dr, 81 MG PO DAILY, (Reported) Entered as Reported by: SONJA OH on 05/24/21 0959 Atorvastatin Calcium (Atorvastatin Calcium) 80 Mg Tablet, 80 MG PO HS Prescribed by: RAINE HERNANDEZ on 08/16/21 1213 Clopidogrel Bisulfate (Plavix) 75 Mg Tablet, 75 MG PO DAILY, (Reported) Entered as Reported by: SONJA OH on 05/26/21 1059 Eszopiclone (Lunesta) 2 Mg Tablet, 2 MG PO HS, (Reported) Entered as Reported by: DOLORES LARIOS on 08/15/21 1555 Famotidine (Acid Regional Education Coordinator (FAMOTIDINE)) 20 Mg Tablet, 20 MG PO BID, (Reported) Entered as Reported by: DOLORES LARIOS on 08/15/21 1555 Hydroxyzine HCl (Hydroxyzine HCl) 25 Mg Tablet, 25 MG PO BID PRN for ANXIETY, (Reported) Entered as Reported by: SONJA OH on 06/27/21 1036 Metformin HCl (Metformin HCl) 500 Mg Tablet, 500 MG PO DAILY, (Reported) Entered as Reported by: DOLORES LARIOS on 08/15/21 1552 Metoprolol Tartrate (Metoprolol Tartrate) 25 Mg Tablet, 12.5 MG PO BID, (Reported) Entered as Reported by: SONJA OH on 05/26/21 1059 Ranolazine (Ranexa) 500 Mg Tab.er.12h, 1,000 MG PO BID Prescribed by: RAINE HERNANDEZ on 08/16/21 1213 Sertraline HCl (Sertraline HCl) 100 Mg Tablet, 100 MG PO HS, (Reported) Entered as Reported by: SONJA HO on 06/27/21 1036 Review of Systems Review of Systems Constitutional: see HPI EENTM: No Symptoms Reported Respiratory: No Symptoms Reported Cardiovascular: See HPI, Chest Pain Gastrointestinal: No Symptoms Reported Genitourinary: No Symptoms Reported Musculoskeletal: no symptoms reported Skin: no symptoms reported Psychiatric/Neurological: No Symptoms Reported Endocrine: No Symptoms Reported Hematologic/Lymphatic: No Symptoms Reported (TAMRA CABALLERO APRN) Past Njiozgt-Ilxflm-Fmqbbu Hx Immunizations Up To Date Tetanus Booster (TDap): More than 5yrs First/Initial COVID19 Vaccinat: not vaccinated Second COVID19 Vaccination Mark: not vaccinated Third COVID19 Vaccination Date: not vaccinated (TAMRA CABALLERO APRN) Seasonal Allergies Seasonal Allergies: No (TAMRA CABALLERO APRN) Past Medical History Surgery/Hospitalization HX: CABG, CARDIAC STENTS, COPD, ASTHMA, HTN, HIGH CHOLESTEROL, GERD, ANXIETY, DEPRESSION 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) Sexually Transmitted Disease: Yes (HERPES) Genitourinary: No Gastrointestinal: Yes (S/P FABRICE FUNDOPLICATION) Gastroesophageal Reflux, Esophagitis, Hiatal Hernia, Gall Bladder Disease Musculoskeletal: Yes Arthritis Endocrine: Yes Hypothyroidsim, Diabetes, Non-Insulin dep HEENT: Yes Chronic Ear Infection Hearing Impairment: Hard of Hearing Cancer: Yes Cervical Did You Recieve Any Treatments: Yes What Type of Treatment Did You: Surgical Intervention Psychosocial: Yes Sleep Difficulties, Anxiety, Suicide Attempts, Depression Integumentary: No Blood Disorders: No Adverse Reaction/Blood Tranf: No (TAMRA CABALLERO APRN) Family Medical History No Pertinent Family Hx ADDITIONAL PAST MEDICAL AND PROCEDURAL HISTORY: -FABRICE FUNDOPLICATION -CHOLECYSTECTOMY -TONSILLECTOMY/ADENOIDECTOMY -TRACHEOSTOMY/LATER REMOVAL -PT HAD NSTEMI AND WAS ADMITTED 04/22/20-04/24/20, HAD CARDIAC CATH 04/23/20 AND HAD STENT X 1 TO RCA -PT HAS PREVIOUSLY HAD A CABG IN 2009, MULTIPLE STENTS TO RCA, AND STENT TO CIRCUMFLEX IN THE PAST. CARDIAC CATH 05/24/[address] ROBLES: CONCLUSIONS: 1. Coronary artery disease as detailed above. The left anterior descending and left circumflex arteries have patent stents. An obtuse marginal branch of the left circumflex has a patent aortocoronary graft, this graft had 70% ostial stenosis and was successfully stented with Radha 2.5 x 18 mm stent, deployed at 20 atmospheres. The right coronary artery had 90% proximal stenosis, which went to 50% stenosis following balloon angioplasty. The mid and distal right coronary artery have in-stent occlusion. This is a very long segment of occlusion and attempts at percutaneous intervention to this portion of the vessel were unsuccessful. 2. Mild elevation of left ventricular end-diastolic pressure. DISCUSSION AND RECOMMENDATIONS: Risk factor modification has been advised. Dual antiplatelet therapy is being continued. Because of low blood pressure, she is not a suitable candidate for beta blockers or MORRO inhibitors or angiotensin receptor blockers. Statin therapy is being continued. (TAMRA CABALLERO APRN) Physical Exam Vital Signs Vital Signs - First Documented 09/09/21 09/09/21 17:40 20:41 Temp 35.9 Pulse 85 Resp 16 B/P (MAP) 133/89 (104) Pulse Ox 97 O2 Delivery Room Air (MARQUISEHEATH K DO) Vital Signs Capillary Refill : (TAMRA CABALLERO APRN) Height, Weight, BMI Height: 5'8.00" Weight: 189lbs. 0.0oz. 85.095679bg; 32.57 BMI Method:Stated General Appearance: No Apparent Distress, WD/WN, Anxious Neck: Full Range of Motion, Normal Inspection Respiratory: No Accessory Muscle Use, No Respiratory Distress Cardiovascular: Regular Rate, Rhythm, Normal Peripheral Pulses Gastrointestinal: Normal Bowel Sounds, Non Tender, Soft Extremity: Normal Capillary Refill, Normal Inspection Neurologic/Psychiatric: Alert, Oriented x3 Skin: Normal Color, Warm/Dry (TAMRA CABALLERO APRN) Progress/Results/Core Measures Results/Orders Lab Results Laboratory Tests Test 09/09/21 17:43 09/09/21 19:25 Range/Units White Blood Count 7.9 4.3-11.0 10^3/uL Red Blood Count 4.61 3.80-5.11 10^6/uL Hemoglobin 15.0 11.5-16.0 g/dL Hematocrit 44 35-52 % Mean Corpuscular Volume 94 80-99 fL Mean Corpuscular Hemoglobin 33 25-34 pg Mean Corpuscular Hemoglobin Concent 35 32-36 g/dL Red Cell Distribution Width 12.3 10.0-14.5 % Platelet Count 282 130-400 10^3/uL Mean Platelet Volume 10.6 9.0-12.2 fL Immature Granulocyte % (Auto) 0 % Neutrophils (%) (Auto) 49 42-75 % Lymphocytes (%) (Auto) 36 12-44 % Monocytes (%) (Auto) 7 0-12 % Eosinophils (%) (Auto) 6 0-10 % Basophils (%) (Auto) 1 0-10 % Neutrophils # (Auto) 3.9 1.8-7.8 10^3/uL Lymphocytes # (Auto) 2.8 1.0-4.0 10^3/uL Monocytes # (Auto) 0.6 0.0-1.0 10^3/uL Eosinophils # (Auto) 0.5 H 0.0-0.3 10^3/uL Basophils # (Auto) 0.1 0.0-0.1 10^3/uL Immature Granulocyte # (Auto) 0.0 0.0-0.1 10^3/uL Prothrombin Time 13.2 12.2-14.7 SEC INR Comment 1.0 0.8-1.4 Activated Partial Thromboplast Time 32 24-35 SEC Sodium Level 136 135-145 MMOL/L Potassium Level 4.1 3.6-5.0 MMOL/L Chloride Level 104 98-107 MMOL/L Carbon Dioxide Level 22 21-32 MMOL/L Anion Gap 10 5-14 MMOL/L Blood Urea Nitrogen 14 7-18 MG/DL Creatinine 0.95 0.60-1.30 MG/DL Estimat Glomerular Filtration Rate 74 BUN/Creatinine Ratio 15 Glucose Level 147 H 70-105 MG/DL Calcium Level 9.1 8.5-10.1 MG/DL Corrected Calcium 9.0 8.5-10.1 MG/DL Magnesium Level 1.8 1.6-2.4 MG/DL Total Bilirubin 0.9 0.1-1.0 MG/DL Aspartate Amino Transf (AST/SGOT) 18 5-34 U/L Alanine Aminotransferase (ALT/SGPT) 21 0-55 U/L Alkaline Phosphatase 101 40-136 U/L Myoglobin 25.4 10.0-92.0 NG/ML Troponin I < 0.028 < 0.028 <0.028 NG/ML Total Protein 7.7 6.4-8.2 GM/DL Albumin 4.1 3.2-4.5 GM/DL (HEATH CAMARILLO DO) Vital Signs/I&O 09/09/21 09/09/21 17:40 20:41 Temp 35.9 36.1 Pulse 85 89 Resp 16 16 B/P (MAP) 133/89 (104) 109/91 Pulse Ox 97 O2 Delivery Room Air Room Air (HEATH CAMARILLO DO) Departure Impression Primary Impression: Chronic chest pain Additional Impression: Small vessel coronary artery disease Disposition: HOME, SELF-CARE Condition: Stable Departure-Patient Inst. Decision time for Depature: 20:38 (TAMRA CABALLERO APRN) Referrals: EDWAR LOBO DO (PCP/Family) Primary Care Physician Patient Instructions: Chest Pain (DC) Add. Discharge Instructions: 1. Follow-up with your twister tender paper on Sunday. Return to ER for any concerns. All discharge instructions reviewed with patient and/or family. Voiced understanding. ATTENDING PHYSICIAN NOTE: I WAS PHYSICALLY PRESENT ER PHYSICIAN WHEN THIS PATIENT WAS IN ER, BUT I WAS NOT INVOLVED IN ANY DECISION MAKING OR ANY CARE OF THIS PATIENT. (HEATH CAMARILLO DO) TAMRA CABALLERO APRN Sep 09, 2021 17:51 HEATH CAMARILLO DO Sep 12, 2021 05:33
[2021-09-09 17:59] LABS: BASOPHILS # (AUTO) 0.1 10^3/uL (0.0-0.1); BASOPHILS % (AUTO) 1 % (0-10); EOSINOPHILS # (AUTO) 0.5 10^3/uL (0.0-0.3); EOSINOPHILS % (AUTO) 6 % (0-10); HEMATOCRIT 44 % (35-52); LYMPHOCYTES # (AUTO) 2.8 10^3/uL (1.0-4.0); LYMPHOCYTES % (AUTO) 36 % (12-44); MEAN CORPUSCULAR HEMOGLOBIN 33 pg (25-34); MEAN CORPUSCULAR HGB CONC 35 g/dL (32-36); MEAN CORPUSCULAR VOLUME 94 fL (80-99); MEAN PLATELET VOLUME 10.6 fL (9.0-12.2); MONOCYTES # (AUTO) 0.6 10^3/uL (0.0-1.0); MONOCYTES % (AUTO) 7 % (0-12); NEUTROPHILS # (AUTO) 3.9 10^3/uL (1.8-7.8); NEUTROPHILS % (AUTO) 49 % (42-75); PLATELET COUNT 282 10^3/uL (130-400); WHITE BLOOD COUNT 7.9 10^3/uL (4.3-11.0)
[2021-09-09] MEDS ORDERED: HYDROcodone/APAP 5 MG/325 MG (LORTAB) TAB PO ONE (18:00)
[2021-09-09] MEDS ORDERED: NITROGLYCERIN 0.4 MG SL TABS BTL 25'S SL PRN (18:00)
[2021-09-09] MEDS ORDERED: ASPIRIN 81 MG CHEW (CHILDREN'S ASA) PO ONE (18:00)
[2021-09-09 18:09] LABS: ALBUMIN 4.1 GM/DL (3.2-4.5)
[2021-09-09 18:10] LABS: POTASSIUM 4.1 MMOL/L (3.6-5.0)
[2021-09-09 18:11] LABS: CALCIUM 9.1 MG/DL (8.5-10.1)
[2021-09-09 18:12] LABS: TOTAL PROTEIN 7.7 GM/DL (6.4-8.2)
[2021-09-09 18:14] LABS: BILIRUBIN,TOTAL 0.9 MG/DL (0.1-1.0)
[2021-09-09 18:16] LABS: CREATININE SERUM 0.95 MG/DL (0.60-1.30)
[2021-09-09 18:17] LABS: PROTHROMBIN TIME PATIENT 13.2 SEC (12.2-14.7)
[2021-09-09 18:18] LABS: MAGNESIUM 1.8 MG/DL (1.6-2.4)
--- NOTE | 2021-09-09 18:24 | Diagnostic Imaging Report ---
INDICATION: Chest pain. COMPARISON: 08/14/2021. FINDINGS: The lungs are clear. No failure, effusion or pneumothorax. IMPRESSION: No acute appearing abnormality. Dictated by: Dictated on workstation # [id number]
[2021-09-09] MEDS ORDERED: LORazepam INJ 2 MG/ML (ATIVAN) VIAL IVP ONE (19:30)
[2021-09-09] MEDS ORDERED: ONDANSETRON 4 MG/2 ML (SDV) Z0FRAN IVP ONE (19:30)
[2021-09-09 20:41] VITALS: BP 109/91
== END 2021-09-09 20:43 | disposition home or self-care (01) ==
LOC: EDUNIT# 17:39 → ER 17:40
DX: G89.29 Other chronic pain (principal); R07.9 Chest pain, unspecified; I25.10 Atherosclerotic heart disease of native coronary artery without angina pectoris; J44.9 Chronic obstructive pulmonary disease, unspecified; I25.2 Old myocardial infarction; I10 Essential (primary) hypertension; F41.9 Anxiety disorder, unspecified; F32.9 Major depressive disorder, single episode, unspecified; E11.9 Type 2 diabetes mellitus without complications; E78.00 Pure hypercholesterolemia, unspecified; K21.9 Gastro-esophageal reflux disease without esophagitis; Z79.899 Other long term (current) drug therapy; Z79.01 Long term (current) use of anticoagulants; Z79.82 Long term (current) use of aspirin; Z79.84 Long term (current) use of oral hypoglycemic drugs
CPT/HCPCS: 36415; 71045; 80053; 83735; 83874; 84484; 85025; 85610; 85730; 93005; 93041

== ENCOUNTER 2021-09-27 22:18 | Emergency (ER) | payer MEDICARE, MEDICAID ==
[2021-09-27] MEDS ORDERED: RX-ONDANSETRON 4 MG ODT (ZOFRAN) PPK #4 PO STA (22:24)
[2021-09-27] MEDS ORDERED: ONDA4TAB11 PO (22:31)
--- NOTE | 2021-09-27 22:32 | ED Dyspnea ---
General Stated Complaint: COVID +/SOA Source of Information: Patient Exam Limitations: No Limitations History of Present Illness Date Seen by Provider: Sep 27, 2021 Time Seen by Provider: 22:09 Initial Comments Patient to the ER by EMS with chief complaint of shortness of air for the past 5 days. No chest pain. She was diagnosed with COVID-19 yesterday. She had some nausea and vomiting yesterday. She was given some inhalers and mulnipavir at [facility]. She was not given anything for nausea. She does not use oxygen supplementally. She was sitting at home smoking cigarettes according to EMS. She does not get worse shortness of breath when she gets up to walk she states. She has a history of a CABG. No swelling in her feet or legs. No headache or fever. Allergies and Home Medications Allergies Coded Allergies: Penicillins (Verified Allergy, Unknown, 05/16/21) Sulfa (Sulfonamide Antibiotics) (Verified Allergy, Unknown, 05/16/21) naproxen (Verified Allergy, Unknown, HIVES, NAUSEA--can take ibuprofen, 05/16/21) Patient Home Medication List Home Medication List Reviewed: Yes Acetaminophen (Tylenol Extra Strength) 500 Mg Tablet, 500 MG PO Q8H PRN for PAIN-MILD (1-4), (Reported) Entered as Reported by: DOLORES LARIOS on 08/15/21 1601 Aripiprazole (Abilify) 15 Mg Tablet, 7.5 MG PO DAILY, (Reported) Entered as Reported by: SONJA OH on 06/27/21 1036 Aspirin (Aspirin EC) 81 Mg Tablet.dr, 81 MG PO DAILY, (Reported) Entered as Reported by: SONJA OH on 05/24/21 0959 Atorvastatin Calcium (Atorvastatin Calcium) 80 Mg Tablet, 80 MG PO HS Prescribed by: RAINE HERNANDEZ on 08/16/21 1213 Clopidogrel Bisulfate (Plavix) 75 Mg Tablet, 75 MG PO DAILY, (Reported) Entered as Reported by: SONJA OH on 05/26/21 1059 Eszopiclone (Lunesta) 2 Mg Tablet, 2 MG PO HS, (Reported) Entered as Reported by: DOLORES LARIOS on 08/15/21 1555 Famotidine (Acid Field Education Coordinator (FAMOTIDINE)) 20 Mg Tablet, 20 MG PO BID, (Reported) Entered as Reported by: DOLORES LARIOS on 08/15/21 1555 Hydroxyzine HCl (Hydroxyzine HCl) 25 Mg Tablet, 25 MG PO BID PRN for ANXIETY, (Reported) Entered as Reported by: SONJA OH on 06/27/21 1036 Metformin HCl (Metformin HCl) 500 Mg Tablet, 500 MG PO DAILY, (Reported) Entered as Reported by: DOLORES LARIOS on 08/15/21 1552 Metoprolol Tartrate (Metoprolol Tartrate) 25 Mg Tablet, 12.5 MG PO BID, (Reported) Entered as Reported by: SONJA OH on 05/26/21 1059 Ondansetron (Ondansetron Odt) 4 Mg Tab.rapdis, 4 MG PO Q6H PRN for NAUSEA/VOMITING Prescribed by: MARGARET HDEZ on 09/27/21 223 Ranolazine (Ranexa) 500 Mg Tab.er.12h, 1,000 MG PO BID Prescribed by: RAINE HERNANDEZ on 08/16/21 1213 Sertraline HCl (Sertraline HCl) 100 Mg Tablet, 100 MG PO HS, (Reported) Entered as Reported by: SONJA OH on 06/27/21 1036 Review of Systems Review of Systems Constitutional: No chills, No diaphoresis EENTM: No ear discharge, No ear pain Respiratory: cough; No phlegm; short of breath Cardiovascular: No chest pain, No edema; Hx of Intervention; No palpitations Gastrointestinal: No abdominal pain, No constipation, No diarrhea; nausea, vomiting Genitourinary: No discharge, No dysuria All Other Systems Reviewed Negative Unless Noted: Yes Past Xazmnnp-Pdbprl-Ipglho Hx Patient Social History Tobacco Use?: Yes Tobacco type used: Cigarettes Use of E-Cig and/or Vaping dev: No Immunizations Up To Date Tetanus Booster (TDap): More than 5yrs First/Initial COVID19 Vaccinat: not vaccinated Second COVID19 Vaccination Mark: not vaccinated Third COVID19 Vaccination Date: not vaccinated Seasonal Allergies Seasonal Allergies: No Past Medical History Surgery/Hospitalization HX: CABG, CARDIAC STENTS, COPD, ASTHMA, HTN, HIGH CHOLESTEROL, GERD, ANXIETY, DEPRESSION 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) Sexually Transmitted Disease: Yes (HERPES) Genitourinary: No Gastrointestinal: Yes (S/P FABRICE FUNDOPLICATION) Gastroesophageal Reflux, Esophagitis, Hiatal Hernia, Gall Bladder Disease Musculoskeletal: Yes Arthritis Endocrine: Yes Hypothyroidsim, Diabetes, Non-Insulin dep HEENT: Yes Chronic Ear Infection Hearing Impairment: Hard of Hearing Cancer: Yes Cervical Did You Recieve Any Treatments: Yes What Type of Treatment Did You: Surgical Intervention Psychosocial: Yes Sleep Difficulties, Anxiety, Suicide Attempts, Depression Integumentary: No Blood Disorders: No Adverse Reaction/Blood Tranf: No Family Medical History No Pertinent Family Hx ADDITIONAL PAST MEDICAL AND PROCEDURAL HISTORY: -FABRICE FUNDOPLICATION -CHOLECYSTECTOMY -TONSILLECTOMY/ADENOIDECTOMY -TRACHEOSTOMY/LATER REMOVAL -PT HAD NSTEMI AND WAS ADMITTED 04/22/20-04/24/20, HAD CARDIAC CATH 04/23/20 AND HAD STENT X 1 TO RCA -PT HAS PREVIOUSLY HAD A CABG IN 2009, MULTIPLE STENTS TO RCA, AND STENT TO CIRCUMFLEX IN THE PAST. CARDIAC CATH 05/24/[address] ROBLES: CONCLUSIONS: 1. Coronary artery disease as detailed above. The left anterior descending and left circumflex arteries have patent stents. An obtuse marginal branch of the left circumflex has a patent aortocoronary graft, this graft had 70% ostial stenosis and was successfully stented with Radha 2.5 x 18 mm stent, deployed at 20 atmospheres. The right coronary artery had 90% proximal stenosis, which went to 50% stenosis following balloon angioplasty. The mid and distal right coronary artery have in-stent occlusion. This is a very long segment of occlusion and attempts at percutaneous intervention to this portion of the vessel were unsuccessful. 2. Mild elevation of left ventricular end-diastolic pressure. DISCUSSION AND RECOMMENDATIONS: Risk factor modification has been advised. Dual antiplatelet therapy is being continued. Because of low blood pressure, she is not a suitable candidate for beta blockers or MORRO inhibitors or angiotensin receptor blockers. Statin therapy is being continued. Physical Exam Vital Signs Vital Signs - First Documented 09/27/21 22:22 Temp 36.1 Pulse 102 Resp 18 B/P (MAP) 138/81 (100) Pulse Ox 98 O2 Delivery Room Air Capillary Refill : Height, Weight, BMI Height: 5'8.00" Weight: 189lbs. 0.0oz. [id number]; 32.00 BMI Method:Stated General Appearance: No Apparent Distress, Obese HEENT: PERRL/EOMI, Pharynx Normal, Moist Mucous Membranes Neck: Full Range of Motion, Normal Inspection Respiratory: Lungs Clear, Normal Breath Sounds, No Accessory Muscle Use, No Respiratory Distress Cardiovascular: Regular Rate, Rhythm, No Edema Peripheral Pulses: 2+ Dorsalis Pedis (R), 2+ Left Dors-Pedis (L) Gastrointestinal: Normal Bowel Sounds, No Organomegaly, Non Tender, Soft Extremity: Normal Capillary Refill, Normal Inspection, Normal Range of Motion, No Pedal Edema Neurologic/Psychiatric: Alert, Oriented x3, No Motor/Sensory Deficits, Normal Mood/Affect Skin: Normal Color, Warm/Dry Progress/Results/Core Measures Results/Orders Lab Results Laboratory Tests Test 09/27/21 22:34 Range/Units White Blood Count 9.6 4.3-11.0 10^3/uL Red Blood Count 4.27 3.80-5.11 10^6/uL Hemoglobin 13.8 11.5-16.0 g/dL Hematocrit 39 35-52 % Mean Corpuscular Volume 92 80-99 fL Mean Corpuscular Hemoglobin 32 25-34 pg Mean Corpuscular Hemoglobin Concent 35 32-36 g/dL Red Cell Distribution Width 12.1 10.0-14.5 % Platelet Count 254 130-400 10^3/uL Mean Platelet Volume 10.2 9.0-12.2 fL Immature Granulocyte % (Auto) 0 % Neutrophils (%) (Auto) 65 42-75 % Lymphocytes (%) (Auto) 27 12-44 % Monocytes (%) (Auto) 6 0-12 % Eosinophils (%) (Auto) 2 0-10 % Basophils (%) (Auto) 0 0-10 % Neutrophils # (Auto) 6.2 1.8-7.8 10^3/uL Lymphocytes # (Auto) 2.6 1.0-4.0 10^3/uL Monocytes # (Auto) 0.6 0.0-1.0 10^3/uL Eosinophils # (Auto) 0.2 0.0-0.3 10^3/uL Basophils # (Auto) 0.0 0.0-0.1 10^3/uL Immature Granulocyte # (Auto) 0.0 0.0-0.1 10^3/uL Sodium Level 133 L 135-145 MMOL/L Potassium Level 3.5 L 3.6-5.0 MMOL/L Chloride Level 101 98-107 MMOL/L Carbon Dioxide Level 18 L 21-32 MMOL/L Anion Gap 14 5-14 MMOL/L Blood Urea Nitrogen 10 7-18 MG/DL Creatinine 0.98 0.60-1.30 MG/DL Estimat Glomerular Filtration Rate 71 BUN/Creatinine Ratio 10 Glucose Level 313 H 70-105 MG/DL Calcium Level 8.6 8.5-10.1 MG/DL Corrected Calcium 8.6 8.5-10.1 MG/DL Total Bilirubin 0.7 0.1-1.0 MG/DL Aspartate Amino Transf (AST/SGOT) 12 5-34 U/L Alanine Aminotransferase (ALT/SGPT) 18 0-55 U/L Alkaline Phosphatase 96 40-136 U/L Troponin I < 0.028 <0.028 NG/ML C-Reactive Protein High Sensitivity 0.22 0.00-0.50 MG/DL Total Protein 7.1 6.4-8.2 GM/DL Albumin 4.0 3.2-4.5 GM/DL My Orders Orders - MARGARET HDEZ Rx-Ondansetron Po (Rx-Zofran Po) (09/27/21 22:24) Cbc With Automated Diff (09/27/21 22:24) Comprehensive Metabolic Panel (09/27/21 22:24) Hs C Reactive Protein (09/27/21 22:24) Troponin I Kt (09/27/21 22:24) Continuous Ekg Monitoring (09/27/21 22:24) Ekg Tracing (09/27/21 22:24) Chest 1 View, Ap/Pa Only (09/27/21 22:24) Covid-19 External Lab Results (09/27/21 22:24) Vital Signs/I&O 09/27/21 2 22:22 22:22 Temp 36.1 Pulse 102 Resp 18 B/P (MAP) 138/81 (100) Pulse Ox 98 O2 Delivery Room Air Room Air Progress Progress Note : Time: 22:28 Progress Note Normal vital signs without increased work of breathing. Will check an EKG troponin basic labs give her some Zofran and provide her with a prescription. Since her symptoms have been consistent for the past 5 days and no chest pain, a single troponin should be sufficient. Initial ECG Impression Date: Sep 27, 2021 Initial ECG Impression Time: 22:23 Initial ECG Rate: 98 Initial ECG Rhythm: Normal Sinus Initial ECG Intervals: Normal Initial ECG Impression: Normal Initial ECG Comparisson: Unchanged Comment Normal sinus rhythm ventricular conduction delay of no clinical significance. No clinically relevant ST changes acutely. Diagnostic Imaging Diagonstic Imaging: Xray Plain Films/CT/US/NM/MRI: chest Comments No acute cardiopulmonary process on 1 view chest x-ray Reviewed: Reviewed by Me Departure Impression Primary Impression: COVID-19 Disposition: 01 HOME, SELF-CARE Condition: Stable Departure-Patient Inst. Decision time for Depature: 23:09 Referrals: EDWAR LOBO DO (PCP/Family) Primary Care Physician Patient Instructions: COVID-19 Overview Add. Discharge Instructions: Continue taking your medications as prescribed. Zofran 1 tablet every 6 hours under the tongue as necessary for nausea or vomiting. Drink lots of fluids. Follow-up with your doctor if you are having any worsening symptoms. Return to the ER if your oxygen saturations are below 90% while at rest. Discontinue the use of cigarettes until your Covid symptoms have resolved. Scripts Ondansetron (Ondansetron Odt) 4 Mg Tab.rapdis 4 MG PO Q6H PRN for NAUSEA/VOMITING, #12 TAB 0 Refills Prov: MARGARET HDEZ 09/27/21 MARGARET HDEZ Sep 27, 2021 22:32
[2021-09-27 22:39] LABS: BASOPHILS % (AUTO) 0 % (0-10); EOSINOPHILS # (AUTO) 0.2 10^3/uL (0.0-0.3); EOSINOPHILS % (AUTO) 2 % (0-10); HEMATOCRIT 39 % (35-52); HEMOGLOBIN 13.8 g/dL (11.5-16.0); LYMPHOCYTES # (AUTO) 2.6 10^3/uL (1.0-4.0); LYMPHOCYTES % (AUTO) 27 % (12-44); MEAN CORPUSCULAR HEMOGLOBIN 32 pg (25-34); MEAN CORPUSCULAR HGB CONC 35 g/dL (32-36); MEAN CORPUSCULAR VOLUME 92 fL (80-99); MEAN PLATELET VOLUME 10.2 fL (9.0-12.2); MONOCYTES # (AUTO) 0.6 10^3/uL (0.0-1.0); MONOCYTES % (AUTO) 6 % (0-12); NEUTROPHILS # (AUTO) 6.2 10^3/uL (1.8-7.8); NEUTROPHILS % (AUTO) 65 % (42-75); PLATELET COUNT 254 10^3/uL (130-400); WHITE BLOOD COUNT 9.6 10^3/uL (4.3-11.0)
[2021-09-27 22:51] LABS: CHLORIDE 101 MMOL/L (98-107); POTASSIUM 3.5 MMOL/L (3.6-5.0); SODIUM 133 MMOL/L (135-145)
[2021-09-27 22:52] LABS: CALCIUM 8.6 MG/DL (8.5-10.1)
[2021-09-27 22:54] LABS: GLUCOSE 313 MG/DL (70-105); TOTAL PROTEIN 7.1 GM/DL (6.4-8.2)
[2021-09-27 22:55] LABS: BILIRUBIN,TOTAL 0.7 MG/DL (0.1-1.0); CARBON DIOXIDE 18 MMOL/L (21-32)
[2021-09-27 22:57] LABS: ALKALINE PHOSPHATASE 96 U/L (40-136); CREATININE SERUM 0.98 MG/DL (0.60-1.30); GFR ESTIMATED 71
[2021-09-27 22:58] LABS: BUN/CREATININE RATIO 10
[2021-09-27 23:00] LABS: ALANINE AMINOTRANSFERASE 18 U/L (0-55)
[2021-09-27 23:33] VITALS: BP 113/64
--- NOTE | 2021-09-28 05:59 | Diagnostic Imaging Report ---
EXAMINATION: Chest 1 view HISTORY: soa covid COMPARISON: 09/09/2021 FINDINGS: Heart size and pulmonary vasculature are normal. Mild interstitial opacities in the lung bases. No pleural effusion or pneumothorax. Surgical changes from CABG. The osseous structures are intact. IMPRESSION: 1. Stable mild interstitial opacities in the lung bases. No other acute radiographic abnormality in the chest. Dictated by: Dictated on workstation # [id number]
== END 2021-09-27 23:32 | disposition home or self-care (01) ==
LOC: EDUNIT# 22:18 → ER 22:20
DX: U07.1 COVID-19 (principal); J44.9 Chronic obstructive pulmonary disease, unspecified; I25.2 Old myocardial infarction; I10 Essential (primary) hypertension; E78.00 Pure hypercholesterolemia, unspecified; I25.10 Atherosclerotic heart disease of native coronary artery without angina pectoris; E11.9 Type 2 diabetes mellitus without complications; F41.9 Anxiety disorder, unspecified; F32.9 Major depressive disorder, single episode, unspecified; K21.9 Gastro-esophageal reflux disease without esophagitis; Z72.0 Tobacco use; Z86.718 Personal history of other venous thrombosis and embolism; Z79.82 Long term (current) use of aspirin; Z79.01 Long term (current) use of anticoagulants; Z79.899 Other long term (current) drug therapy; Z79.84 Long term (current) use of oral hypoglycemic drugs
CPT/HCPCS: 36415; 71045; 80053; 84484; 85025; 86141; 93005

== ENCOUNTER 2021-10-08 21:15 | Observation (INO) | payer MEDICARE, MEDICAID ==
[~2021-10-08] VITALS: Ht 172.7 cm; Wt 110.0 kg
[~2021-10-08 21:15] MED LIST changes: +ONDA4TAB11 PO
--- NOTE | 2021-10-08 21:27 | ED Chest Pain ---
General Stated Complaint: C/P, SOB History of Present Illness Date Seen by Provider: Oct 08, 2021 Time Seen by Provider: 21:15 Initial Comments PT ARRIVES VIA EMS FROM HOME C/O CHEST PAIN SINCE 1999 PAIN BEGAN WHILE PLAYING CARDS PAIN IS IN CENTER OF CHEST WITH RADIATION INTO NECK C/O SHORTNESS OF BREATH NOTHING WORSENS OR IMPROVES PAIN, BUT HAS NOT TAKEN ANYTHING FOR PAIN AND STATES SHE DOES NOT HAVE NTG AT HOME DENIES ANY OTHER SYMPTOMS PT WITH CHRONIC CHEST PAIN COMPLAINTS, WELL CHRONIC SHORTNESS OF BREATH COMPLAINTS PT WITH A MULTITUDE OF VISITS PT HAS HAD PRIOR CABG AND CARDIAC STENTS/MULTIPLE INTERVENTIONS, AND IS ON ASPIRIN AND PLAVIX--HAD CARDIAC CATH 08/14/21--PATENT STENTS, CHRONIC OCCLUSIONS, NO INTERVENTION AT THAT TIME. LAST STENT WAS PLACED 05/24/[address] ROBLES PT DENIES ANY MISSED DOSES OF MEDICATIONS OR ANY CHANGES IN MEDICATIONS EMS GAVE 324 MG ASPIRIN VITALS NORMAL FOR EMS BLOOD GLUCOSE 355 FOR EMS PT HAS COPD AND CONTINUES TO SMOKE HAS ALSO HAD A MULTITUDE OF VISITS FOR PNEUMONIA AND COPD EXACERBATIONS WELL. PT TESTED + FOR COVID-19 ON 09/26/21 AT [facility], STATES HER SYMPTOMS STARTED 2 DAYS PRIOR TO GOING TO [facility] PT WAS ALSO SEEN HERE 09/27/21 FOR SHORTNESS OF BREATH PT STATES SHE RECEIVED AN UNKNOWN "ANTIBIOTIC" FOR COVID-19 BY [facility], AND STATES ALL THOSE SYMPTOMS RESOLVED--HAD SYMPTOMS OF COUGH, SHORTNESS OF BREATH, NAUSEA AND SORE THROAT PT WAS GIVEN RX FOR ZOFRAN ON 09/27/21 PT HAS NOT HAD COVID-19 OR FLU VACCINES LMNP--UNKNOWN, PT WAS ON DEPO-PROVERA FOR YEARS, BUT HAS BEEN OFF IT AND NOT BEEN ON ANY CONTROL IN OVER A YEAR. PT HAS NOT HAD A PERIOD IN YEARS, SINCE SHE FIRST STARTED ON DEPO-PROVERA CARDIAC CATH 08/14/[address] ALAN: IMPRESSION: 1. Normal central aortic pressure with elevated left ventricular end-diastolic pressure. 2. Patent stent in the mid left anterior descending coronary artery. 3. Total occlusion of the mid right coronary artery within previously placed stents. This is known to be a chronic total occlusion. 4. The left internal mammary artery graft to left anterior descending coronary artery is known to be atretic and was not studied during this procedure. 5. Patent saphenous vein graft to the obtuse marginal branch with a patent stent in the ostium. 6. The patient is known to have normal left ventricular systolic function with an estimated ejection fraction of 60-65% by echocardiogram performed earlier today. 7. The patient may be having angina from small vessel disease. PCP: DR. LOBO--HAS FOLLOWED UP SINCE COVID WAS DIAGNOSED. SOFTWARE APPLICATION TESTER: DR. ROBLES--HAS NOT SEEN FOR MONTHS Allergies and Home Medications Allergies Coded Allergies: Penicillins (Verified Allergy, Unknown, 05/16/21) Sulfa (Sulfonamide Antibiotics) (Verified Allergy, Unknown, 05/16/21) naproxen (Verified Allergy, Unknown, HIVES, NAUSEA--can take ibuprofen, 05/16/21) Patient Home Medication List Home Medication List Reviewed: Yes Acetaminophen (Tylenol Extra Strength) 500 Mg Tablet, 500 MG PO Q8H PRN for PAIN-MILD (1-4), (Reported) Entered as Reported by: DOLORES LARIOS on 08/15/21 1601 Aripiprazole (Abilify) 15 Mg Tablet, 7.5 MG PO DAILY, (Reported) Entered as Reported by: SONJA OH on 06/27/21 1036 Aspirin (Aspirin EC) 81 Mg Tablet.dr, 81 MG PO DAILY, (Reported) Entered as Reported by: SONJA OH on 05/24/21 0959 Atorvastatin Calcium (Atorvastatin Calcium) 80 Mg Tablet, 80 MG PO HS Prescribed by: RAINE HERNANDEZ on 08/16/21 1213 Clopidogrel Bisulfate (Plavix) 75 Mg Tablet, 75 MG PO DAILY, (Reported) Entered as Reported by: SONJA OH on 05/26/21 1059 Eszopiclone (Lunesta) 2 Mg Tablet, 2 MG PO HS, (Reported) Entered as Reported by: DOLORES LARIOS on 08/15/21 1555 Hydroxyzine HCl (Hydroxyzine HCl) 25 Mg Tablet, 25 MG PO BID PRN for ANXIETY, (Reported) Entered as Reported by: SONJA OH on 06/27/21 1036 Metformin HCl (Metformin HCl) 500 Mg Tablet, 500 MG PO DAILY, (Reported) Entered as Reported by: DOLORES LARIOS on 08/15/21 1552 Metoprolol Tartrate (Metoprolol Tartrate) 25 Mg Tablet, 12.5 MG PO BID, (Reported) Entered as Reported by: SONJA OH on 05/26/21 1059 Nitroglycerin (Nitroglycerin) 0.3 Mg Tab.subl, 0.3 MG SL Q5MIN PRN X3 PRN for CH EST PAIN (ANGINA) Prescribed by: RAINE HERNANDEZ on 10/09/21 1302 Ondansetron (Ondansetron Odt) 4 Mg Tab.rapdis, 4 MG PO Q6H PRN for NAUSEA/VOMITING Prescribed by: MARGARET HDEZ on 09/27/21 2231 Pantoprazole Sodium (Protonix) 40 Mg Tablet.dr, 40 MG PO BID Prescribed by: RAINE HERNANDEZ on 10/09/21 1303 Ranolazine (Ranexa) 500 Mg Tab.er.12h, 1,000 MG PO BID Prescribed by: RAINE HERNANDEZ on 08/16/21 1213 Sertraline HCl (Sertraline HCl) 100 Mg Tablet, 100 MG PO HS, (Reported) Entered as Reported by: SONJA OH on 06/27/21 1036 Discontinued Medications Famotidine (Acid Glass Curvature Gauger (FAMOTIDINE)) 20 Mg Tablet, 20 MG PO BID, (Reported) Entered as Reported by: DOLORES LARIOS on 08/15/21 1555 Review of Systems Review of Systems Constitutional: no symptoms reported; No diaphoresis, No fever EENTM: No Symptoms Reported Respiratory: See HPI, Shortness of Air Cardiovascular: See HPI, Chest Pain Gastrointestinal: Denies Abdominal Pain; Nausea Genitourinary: No Symptoms Reported Musculoskeletal: see HPI, neck pain Skin: no symptoms reported Psychiatric/Neurological: No Symptoms Reported Endocrine: No Symptoms Reported Hematologic/Lymphatic: No Symptoms Reported Past Jzrefhh-[id number]-[id number] Hx Patient Social History Tobacco Use?: Yes Tobacco type used: Cigarettes Smoking Status: Current Everyday Smoker Immunizations Up To Date Tetanus Booster (TDap): More than 5yrs First/Initial COVID19 Vaccinat: not vaccinated Second COVID19 Vaccination Mark: not vaccinated Third COVID19 Vaccination Date: not vaccinated Seasonal Allergies Seasonal Allergies: No Past Medical History Surgery/Hospitalization HX: CABG, CARDIAC STENTS, COPD, ASTHMA, HTN, HIGH CHOLESTEROL, GERD, ANXIETY, DEPRESSION 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) Sexually Transmitted Disease: Yes (HERPES) Genitourinary: No Gastrointestinal: Yes (S/P FABRICE FUNDOPLICATION) Gastroesophageal Reflux, Esophagitis, Hiatal Hernia, Gall Bladder Disease Musculoskeletal: Yes Arthritis Endocrine: Yes Hypothyroidsim, Diabetes, Non-Insulin dep HEENT: Yes Chronic Ear Infection Hearing Impairment: Hard of Hearing Cancer: Yes Cervical Did You Recieve Any Treatments: Yes What Type of Treatment Did You: Surgical Intervention Psychosocial: Yes Sleep Difficulties, Anxiety, Suicide Attempts, Depression Integumentary: No Blood Disorders: No Adverse Reaction/Blood Tranf: No Family Medical History No Pertinent Family Hx SOCIAL HISTORY: -SMOKES AT LEAST 1 PPD -ETOH--DENIES USE -DENIES DRUG USE ADDITIONAL PAST MEDICAL AND PROCEDURAL HISTORY: -FABRICE FUNDOPLICATION -CHOLECYSTECTOMY -TONSILLECTOMY/ADENOIDECTOMY -TRACHEOSTOMY/LATER REMOVAL -PT HAD NSTEMI AND WAS ADMITTED 04/22/20-04/24/20, HAD CARDIAC CATH 04/23/20 AND HAD STENT X 1 TO RCA -PT HAS PREVIOUSLY HAD A CABG IN 2009, MULTIPLE STENTS TO RCA, AND STENT TO CIRCUMFLEX IN THE PAST. CARDIAC CATH 05/24/[address] ROBLES: CONCLUSIONS: 1. Coronary artery disease as detailed above. The left anterior descending and left circumflex arteries have patent stents. An obtuse marginal branch of the left circumflex has a patent aortocoronary graft, this graft had 70% ostial stenosis and was successfully stented with Radha 2.5 x 18 mm stent, deployed at 20 atmospheres. The right coronary artery had 90% proximal stenosis, which went to 50% stenosis following balloon angioplasty. The mid and distal right coronary artery have in-stent occlusion. This is a very long segment of occlusion and attempts at percutaneous intervention to this portion of the vessel were unsuccessful. 2. Mild elevation of left ventricular end-diastolic pressure. DISCUSSION AND RECOMMENDATIONS: Risk factor modification has been advised. Dual antiplatelet therapy is being continued. Because of low blood pressure, she is not a suitable candidate for beta blockers or MORRO inhibitors or angiotensin receptor blockers. Statin therapy is being continued. -CARDIAC CATH 08/14/[address] ALAN: IMPRESSION: 1. Normal central aortic pressure with elevated left ventricular end-diastolic pressure. 2. Patent stent in the mid left anterior descending coronary artery. 3. Total occlusion of the mid right coronary artery within previously placed stents. This is known to be a chronic total occlusion. 4. The left internal mammary artery graft to left anterior descending coronary artery is known to be atretic and was not studied during this procedure. 5. Patent saphenous vein graft to the obtuse marginal branch with a patent stent in the ostium. 6. The patient is known to have normal left ventricular systolic function with an estimated ejection fraction of 60-65% by echocardiogram performed earlier today. 7. The patient may be having angina from small vessel disease. Physical Exam Vital Signs Capillary Refill : Height, Weight, BMI Height: 5'8.00" Weight: 189lbs. 0.0oz. [id number]; 32.00 BMI Method:Stated General Appearance: No Apparent Distress, WD/WN, Obese, Other (DOES NOT APPEAR TO BE IN ANY DISCOMFORT OR DISTRESS WHATSOEVER; REEKS OF CIGARETTES) HEENT: Other (EDENTULOUS) Neck: Full Range of Motion, Normal Inspection, Non Tender, Supple Respiratory: Chest Non Tender, Normal Breath Sounds, No Accessory Muscle Use, No Respiratory Distress Cardiovascular: Regular Rate, Rhythm, No Edema, No Gallop, No JVD, No Murmur, Normal Peripheral Pulses Gastrointestinal: Normal Bowel Sounds, No Pulsatile Mass, Non Tender, Soft Extremity: Normal Capillary Refill, Normal Inspection, Normal Range of Motion, Non Tender, No Calf Tenderness, No Pedal Edema Neurologic/Psychiatric: Alert, Oriented x3, No Motor/Sensory Deficits, Normal 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, 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 Skin: Normal Color, Warm/Dry, Tattoos/Piercings (TATTOOS) Progress/Results/Core Measures Results/Orders Lab Results Laboratory Tests Test 10/08/21 21:20 10/08/21 21:40 10/09/21 00:53 Range/Units White Blood Count 6.6 4.3-11.0 10^3/uL Red Blood Count 4.25 3.80-5.11 10^6/uL Hemoglobin 13.7 11.5-16.0 g/dL Hematocrit 41 35-52 % Mean Corpuscular Volume 96 80-99 fL Mean Corpuscular Hemoglobin 32 25-34 pg Mean Corpuscular Hemoglobin Concent 34 32-36 g/dL Red Cell Distribution Width 12.6 10.0-14.5 % Platelet Count 334 130-400 10^3/uL Mean Platelet Volume 10.4 9.0-12.2 fL Immature Granulocyte % (Auto) 0 % Neutrophils (%) (Auto) 42 42-75 % Lymphocytes (%) (Auto) 46 H 12-44 % Monocytes (%) (Auto) 7 0-12 % Eosinophils (%) (Auto) 5 0-10 % Basophils (%) (Auto) 1 0-10 % Neutrophils # (Auto) 2.8 1.8-7.8 10^3/uL Lymphocytes # (Auto) 3.0 1.0-4.0 10^3/uL Monocytes # (Auto) 0.5 0.0-1.0 10^3/uL Eosinophils # (Auto) 0.3 0.0-0.3 10^3/uL Basophils # (Auto) 0.1 0.0-0.1 10^3/uL Immature Granulocyte # (Auto) 0.0 0.0-0.1 10^3/uL Sodium Level 136 135-145 MMOL/L Potassium Level 4.3 3.6-5.0 MMOL/L Chloride Level 105 98-107 MMOL/L Carbon Dioxide Level 17 L 21-32 MMOL/L Anion Gap 14 5-14 MMOL/L Blood Urea Nitrogen 7 7-18 MG/DL Creatinine 0.92 0.60-1.30 MG/DL Estimat Glomerular Filtration Rate 77 BUN/Creatinine Ratio 8 Glucose Level 240 H 70-105 MG/DL Calcium Level 8.7 8.5-10.1 MG/DL Corrected Calcium 8.9 8.5-10.1 MG/DL Magnesium Level 1.8 1.6-2.4 MG/DL Total Bilirubin 0.4 0.1-1.0 MG/DL Aspartate Amino Transf (AST/SGOT) 23 5-34 U/L Alanine Aminotransferase (ALT/SGPT) 15 0-55 U/L Alkaline Phosphatase 98 40-136 U/L Total Creatine Kinase 54 29-168 U/L Creatine Kinase MB 0.9 <6.6 NG/ML Myoglobin 22.1 10.0-92.0 NG/ML Troponin I < 0.028 < 0.028 <0.028 NG/ML B-Type Natriuretic Peptide 116.3 H <100.0 PG/ML Total Protein 7.4 6.4-8.2 GM/DL Albumin 3.7 3.2-4.5 GM/DL Amylase Level 69 25-125 U/L Lipase 83 H 8-78 U/L Serum Test, Qualitative NEGATIVE NEGATIVE Prothrombin Time 11.9 L 12.2-14.7 SEC INR Comment 0.8 0.8-1.4 Activated Partial Thromboplast Time 27 24-35 SEC D-Dimer 0.50 H 0.00-0.49 UG/ML My Orders Orders - HEATH CAMARILLO DO Cbc With Automated Diff (10/08/21 21:19) Magnesium (10/08/21 21:19) Chest 1 View, Ap/Pa Only (10/08/21 21:19) Ekg Tracing (10/08/21 21:19) Comprehensive Metabolic Panel (10/08/21 21:19) Myoglobin Serum (10/08/21 21:19) Protime With Inr (10/08/21 21:19) Partial Thromboplastin Time (10/08/21 21:19) O2 (10/08/21 21:19) Monitor-Rhythm Ecg Trace Only (10/08/21 21:19) Ed Iv/Invasive Line Start (10/08/21 21:19) Creatine Kinase (10/08/21 21:19) Creatine Kinase Mb (10/08/21 21:19) Lipase (10/08/21 21:19) Amylase (10/08/21 21:19) Bnp Kt (10/08/21 21:19) Fibrin Degradation Products (10/08/21 21:19) Troponin I Kt (10/08/21 21:19) Nitroglycerin Ointment (Nitrobid Ointme (10/08/21 21:45) Ondansetron Injection (Zofran Injectio (10/08/21 21:45) Ct Angio Chest W (10/08/21 22:02) Hcg,Qualitative Serum (10/08/21 22:12) Morphine Injection (Morphine Injection (10/08/21 23:15) Ondansetron Injection (Zofran Injectio (10/09/21 00:00) Ekg Tracing (10/09/21 00:34) Troponin I Kt (10/09/21 00:34) Medications Given in ED Vital Signs/I&O Progress Progress Note : Progress Note NITROPASTE APPLIED GIVEN ZOFRAN, PT BEGAN TO C/O NAUSEA AFTER ARRIVAL--THIS IS A CHRONIC COMPLAINT FOR PATIENT PT OBSERVED IN ER AND 3 HOUR REPEAT TROPONIN AND EKG DONE, BOTH UNCHANGED. NO COMPLAINTS FOR REMAINDER OF ER STAY Initial ECG Impression Date: Oct 08, 2021 Initial ECG Impression Time: 21:15 Initial ECG Rate: 80 Initial ECG Rhythm: Normal Sinus Initial ECG Comparisson: Unchanged EKG : EKG Time: 00:47 Rate: 68 Rhythm: Normal Sinus ECG Comparisson: Unchanged Diagnostic Imaging Comments CXR--PER RADIOLOGIST REPORT AT 2157 FINDINGS: Patient is status post sternotomy. There are no findings of current pulmonary edema. Heart size is stable and appropriate. There is no new alveolar consolidation or evidence of an effusion. There is no pneumothorax. IMPRESSION: Previous operative changes of sternotomy. There are no radiographic findings of a new or acute cardiopulmonary process. CT ANGIOGRAM CHEST--PER RADIOLOGIST REPORT AT 225 FINDINGS: There are no CT angiographic findings of a filling defect within the pulmonary arteries to suggest pulmonary embolism. There is no evidence of right ventricular strain. Patient is status post previous sternotomy and bypass grafting. There are [place] coronary artery calcifications. The thoracic aorta demonstrates no dissection or evidence of aneurysm. The lungs are clear without findings of edema or pneumonia. There is no effusion or pneumothorax. There is no pulmonary nodule or mass. There are no findings of pathologic thoracic adenopathy. There is a moderate hiatal hernia. The upper abdomen demonstrates previous cholecystectomy changes. There is no acute upper abdominal abnormality. Thoracic spine alignment is normal. There is no acute osseous abnormality within the thorax. IMPRESSION: 1. No CT angiographic evidence of pulmonary embolism. 2. No acute aortic syndrome. 3. Cardiomegaly with prior coronary artery bypass grafting. 4. Lungs are clear. 5. No adenopathy. 6. No acute osseous abnormality. Reviewed: Reviewed by [place] Departure Communication (Admissions) [id number]--SPOKE WITH DR. ARGUELLES, ACCEPTS PT FOR ADMIT Impression Primary Impression: Chronic chest pain Additional Impressions: Chest pain S/P CABG (coronary artery bypass graft) CAD (coronary artery disease) T2DM (type 2 diabetes mellitus) HTN (hypertension) COPD (chronic obstructive pulmonary disease) Smoker Disposition: ADMITTED INPATIENT Condition: Stable Admissions Decision to Admit Reason: Admit from ER (General) Decision to Admit/Date: Oct 09, 2021 Time/Decision to Admit Time: 01:40 Departure-Patient Inst. Referrals: EDWAR LOBO DO (PCP/Family) Primary Care Physician Scripts Pantoprazole Sodium (Protonix) 40 Mg Tablet.dr 40 MG PO BID for 30 Days, #60 TAB Prov: RAINE HERNANDEZ MD 10/09/21 Nitroglycerin (Nitroglycerin) 0.3 Mg Tab.subl 0.3 MG SL Q5MIN PRN X3 PRN for CHEST PAIN (ANGINA) for 30 Days, #30 TAB Prov: RAINE HERNANDEZ MD 10/09/21 HEATH CAMARILLO DO Oct 08, 2021 21:27
[2021-10-08 21:28] LABS: BASOPHILS # (AUTO) 0.1 10^3/uL (0.0-0.1); BASOPHILS % (AUTO) 1 % (0-10); EOSINOPHILS # (AUTO) 0.3 10^3/uL (0.0-0.3); EOSINOPHILS % (AUTO) 5 % (0-10); HEMATOCRIT 41 % (35-52); HEMOGLOBIN 13.7 g/dL (11.5-16.0); LYMPHOCYTES % (AUTO) 46 % (12-44); MEAN CORPUSCULAR HEMOGLOBIN 32 pg (25-34); MEAN CORPUSCULAR HGB CONC 34 g/dL (32-36); MEAN CORPUSCULAR VOLUME 96 fL (80-99); MEAN PLATELET VOLUME 10.4 fL (9.0-12.2); MONOCYTES # (AUTO) 0.5 10^3/uL (0.0-1.0); MONOCYTES % (AUTO) 7 % (0-12); NEUTROPHILS # (AUTO) 2.8 10^3/uL (1.8-7.8); NEUTROPHILS % (AUTO) 42 % (42-75); PLATELET COUNT 334 10^3/uL (130-400); WHITE BLOOD COUNT 6.6 10^3/uL (4.3-11.0)
[2021-10-08 21:39] LABS: ALBUMIN 3.7 GM/DL (3.2-4.5); POTASSIUM 4.3 MMOL/L (3.6-5.0)
[2021-10-08 21:40] LABS: CALCIUM 8.7 MG/DL (8.5-10.1)
[2021-10-08 21:41] LABS: TOTAL PROTEIN 7.4 GM/DL (6.4-8.2)
[2021-10-08 21:43] LABS: BILIRUBIN,TOTAL 0.4 MG/DL (0.1-1.0)
[2021-10-08 21:45] LABS: CREATININE SERUM 0.92 MG/DL (0.60-1.30)
[2021-10-08] MEDS ORDERED: NITROGLYCERIN 2% OINT 1 GM UNIT DOSE PACKET TOP ONE (21:45)
[2021-10-08] MEDS ORDERED: ONDANSETRON 4 MG/2 ML (SDV) Z0FRAN IVP ONE (21:45)
[2021-10-08 21:48] LABS: MAGNESIUM 1.8 MG/DL (1.6-2.4)
--- NOTE | 2021-10-08 21:50 | Diagnostic Imaging Report ---
EXAMINATION: Portable chest. COMPARISON: Prior examination from September 27, [address] angiogram from August 14, 2021. FINDINGS: Patient is status post sternotomy. There are no findings of current pulmonary edema. Heart size is stable and appropriate. There is no new alveolar consolidation or evidence of an effusion. There is no pneumothorax. IMPRESSION: Previous operative changes of sternotomy. There are no radiographic findings of a new or acute cardiopulmonary process. Dictated by: Dictated on workstation # [id number]
[2021-10-08 21:55] LABS: CREATINE KINASE MB 0.9 NG/ML (<6.6)
[2021-10-08 22:02] LABS: INR 0.8 (0.8-1.4); PROTHROMBIN TIME PATIENT 11.9 SEC (12.2-14.7)
--- NOTE | 2021-10-08 22:46 | Diagnostic Imaging Report ---
PROCEDURE: CT angiography of the chest with contrast. TECHNIQUE: Multiple contiguous axial images were obtained through the chest after uneventful bolus administration of intravenous contrast. 3D reconstructed CTA MIP acquisitions were also performed. Auto Exposure Controls were utilized during the CT exam to meet ALARA standards for radiation dose reduction. INDICATION: Chest pain. Evaluate for pulmonary embolism. COMPARISON: Prior study from August 14, 2021. FINDINGS: There are no CT angiographic findings of a filling defect within the pulmonary arteries to suggest pulmonary embolism. There is no evidence of right ventricular strain. Patient is status post previous sternotomy and bypass grafting. There are august[place] coronary artery calcifications. The thoracic aorta demonstrates no dissection or evidence of aneurysm. The lungs are clear without findings of edema or pneumonia. There is no effusion or pneumothorax. There is no pulmonary nodule or mass. There are no findings of pathologic thoracic adenopathy. There is a moderate hiatal hernia. The upper abdomen demonstrates previous cholecystectomy changes. There is no acute upper abdominal abnormality. Thoracic spine alignment is normal. There is no acute osseous abnormality within the thorax. IMPRESSION: 1. No CT angiographic evidence of pulmonary embolism. 2. No acute aortic syndrome. 3. Cardiomegaly with prior coronary artery bypass grafting. 4. Lungs are clear. 5. No adenopathy. 6. No acute osseous abnormality. Dictated by: Dictated on workstation # [id number]
[2021-10-08] MEDS ORDERED: morphine INJ 4 MG/ML 1 ML (VIAL/SYRINGE) IVP ONE (23:15)
[2021-10-09] VITALS (8 sets, daily range): BP systolic 89–123; BP diastolic 58–81
[2021-10-09] MEDS ORDERED: ONDANSETRON 4 MG/2 ML (SDV) Z0FRAN IVP ONE
[2021-10-09] MEDS ORDERED: morphine INJ 4 MG/ML 1 ML (VIAL/SYRINGE) IVP ONE (02:00)
[2021-10-09] MEDS ORDERED: morphine INJ 10 MG/ML 1ML (SYR OR VIAL) IVP ONE (02:15)
[2021-10-09] MEDS ORDERED: NS IV 1000 ML 1,000 ML ONE (03:38)
[2021-10-09] MEDS ORDERED: NITROGLYCERIN 0.4 MG SL TABS BTL 25'S SL PRN (04:15)
[2021-10-09] MEDS ORDERED: ONDANSETRON 4 MG/2 ML (SDV) Z0FRAN IVP PRN (04:15)
[2021-10-09] MEDS: morphine INJ 4 MG/ML 1 ML (VIAL/SYRINGE) IV PRN ×2 (04:37→08:47)
[2021-10-09] MEDS: NS IV 1000 ML 1,000 ML IV SCH ×2 (04:37→12:54)
[2021-10-09 04:46] LABS: BASOPHILS # (AUTO) 0.1 10^3/uL (0.0-0.1); BASOPHILS % (AUTO) 1 % (0-10); EOSINOPHILS # (AUTO) 0.3 10^3/uL (0.0-0.3); EOSINOPHILS % (AUTO) 5 % (0-10); HEMATOCRIT 38 % (35-52); HEMOGLOBIN 12.5 g/dL (11.5-16.0); LYMPHOCYTES # (AUTO) 3.3 10^3/uL (1.0-4.0); LYMPHOCYTES % (AUTO) 52 % (12-44); MEAN CORPUSCULAR HEMOGLOBIN 32 pg (25-34); MEAN CORPUSCULAR HGB CONC 33 g/dL (32-36); MEAN CORPUSCULAR VOLUME 97 fL (80-99); MEAN PLATELET VOLUME 10.4 fL (9.0-12.2); MONOCYTES # (AUTO) 0.5 10^3/uL (0.0-1.0); MONOCYTES % (AUTO) 9 % (0-12); NEUTROPHILS # (AUTO) 2.2 10^3/uL (1.8-7.8); NEUTROPHILS % (AUTO) 34 % (42-75); PLATELET COUNT 302 10^3/uL (130-400); WHITE BLOOD COUNT 6.4 10^3/uL (4.3-11.0)
[2021-10-09 05:07] LABS: CHLORIDE 106 MMOL/L (98-107); POTASSIUM 4.2 MMOL/L (3.6-5.0); SODIUM 138 MMOL/L (135-145)
[2021-10-09 05:08] LABS: CALCIUM 8.6 MG/DL (8.5-10.1)
[2021-10-09 05:09] LABS: GLUCOSE 108 MG/DL (70-105); TRIGLYCERIDES 252 MG/DL (<150); VLDL CHOLESTEROL 50 MG/DL (5-40)
[2021-10-09 05:10] LABS: CARBON DIOXIDE 22 MMOL/L (21-32)
[2021-10-09 05:13] LABS: CREATININE SERUM 0.82 MG/DL (0.60-1.30); GFR ESTIMATED 88
[2021-10-09 05:14] LABS: BUN/CREATININE RATIO 9; CHOLESTEROL 237 MG/DL (< 200)
[2021-10-09 05:15] LABS: HDL CHOLESTEROL 40 MG/DL (40-60)
[2021-10-09] MEDS: inSUlin ASPART (NovoLOG) 1 UNIT/0.01 ML (CHARGE PER UNIT) SC SCH ×2 (05:52→11:40)
[2021-10-09] MEDS ORDERED: ASPIRIN E.C. 81 MG (ECOTRIN) TAB PO SCH ×2 (09:00→09:30)
--- NOTE | 2021-10-09 09:18 | Consultation-Cardiology ---
HPI-Cardiology Cardiology Consultation Date of Consultation 10/09/21 Date of Admission Time Seen by Provider: 09:11 Indication: Chest pain HPI 46-year-old lady with extensive cardiac history, hypertension and hyperlipidemia, tested positive for Covid earlier this month. Was in her usual state of health, came into the emergency room for persistent chest pain described as dull achiness across her chest usually with deep inspiration. Not relieved by nitroglycerin, no shortness of breath. No palpitation or syncope Home Medications & Allergies Allergies: Coded Allergies: Penicillins (Verified Allergy, Unknown, 05/16/21) Sulfa (Sulfonamide Antibiotics) (Verified Allergy, Unknown, 05/16/21) naproxen (Verified Allergy, Unknown, HIVES, NAUSEA--can take ibuprofen, 05/16/21) Home Medication List Reviewed: Yes INQ-Tcyaqd-Gmvnwx Hx Patient Social History Smoking Status: Current Everyday Smoker Type Used: Electronic/Vapor 2nd Hand Smoke Exposure: No Recent Hopitalizations: No Have you traveled recently?: No Alcohol Use?: No Immunizations Up To Date Tetanus Booster (TDap): More than 5yrs Date of Pneumonia Vaccine: Jun 20, 2013 Date of Influenza Vaccine: May 09, 2021 Past Medical History Discussed below Family Medical History Significant Family History: No Pertinent Family Hx Family Medical Hx Noncontributory Review of Systems-General Review of Systems Constitutional: no symptoms reported, see HPI; No diaphoresis, No fever EENTM: see HPI, no symptoms reported Respiratory: see HPI, cough, dyspnea on exertion Cardiovascular: see HPI, chest pain; No edema, No Hx of Intervention, No palpitations, No syncope, No vascular heart diseas, No other Gastrointestinal: see HPI Genitourinary: see HPI Musculoskeletal: see HPI, neck pain Skin: no symptoms reported Psychiatric/Neurological: No Symptoms Reported Reviewed Test Results Reviewed Test Results Lab Laboratory Tests Test 10/08/21 21:20 10/08/21 21:40 10/09/21 00:53 10/09/21 03:58 Range/Units White Blood Count 6.6 6.4 4.3-11.0 10^3/uL Red Blood Count 4.25 3.90 3.80-5.11 10^6/uL Hemoglobin 13.7 12.5 11.5-16.0 g/dL Hematocrit 41 38 35-52 % Mean Corpuscular Volume 96 97 80-99 fL Mean Corpuscular Hemoglobin 32 32 25-34 pg Mean Corpuscular Hemoglobin Concent 34 33 32-36 g/dL Red Cell Distribution Width 12.6 12.8 10.0-14.5 % Platelet Count 334 302 130-400 10^3/uL Mean Platelet Volume 10.4 10.4 9.0-12.2 fL Immature Granulocyte % (Auto) 0 0 % Neutrophils (%) (Auto) 42 34 L 42-75 % Lymphocytes (%) (Auto) 46 H 52 H 12-44 % Monocytes (%) (Auto) 7 9 0-12 % Eosinophils (%) (Auto) 5 5 0-10 % Basophils (%) (Auto) 1 1 0-10 % Neutrophils # (Auto) 2.8 2.2 1.8-7.8 10^3/uL Lymphocytes # (Auto) 3.0 3.3 1.0-4.0 10^3/uL Monocytes # (Auto) 0.5 0.5 0.0-1.0 10^3/uL Eosinophils # (Auto) 0.3 0.3 0.0-0.3 10^3/uL Basophils # (Auto) 0.1 0.1 0.0-0.1 10^3/uL Immature Granulocyte # (Auto) 0.0 0.0 0.0-0.1 10^3/uL Sodium Level 136 138 135-145 MMOL/L Potassium Level 4.3 4.2 3.6-5.0 MMOL/L Chloride Level 105 106 98-107 MMOL/L Carbon Dioxide Level 17 L 22 21-32 MMOL/L Anion Gap 14 10 5-14 MMOL/L Blood Urea Nitrogen 7 7 7-18 MG/DL Creatinine 0.92 0.82 0.60-1.30 MG/DL Estimat Glomerular Filtration Rate 77 88 BUN/Creatinine Ratio 8 9 Glucose Level 240 H 108 H 70-105 MG/DL Calcium Level 8.7 8.6 8.5-10.1 MG/DL Corrected Calcium 8.9 8.5-10.1 MG/DL Magnesium Level 1.8 1.6-2.4 MG/DL Total Bilirubin 0.4 0.1-1.0 MG/DL Aspartate Amino Transf (AST/SGOT) 23 5-34 U/L Alanine Aminotransferase (ALT/SGPT) 15 0-55 U/L Alkaline Phosphatase 98 40-136 U/L Total Creatine Kinase 54 29-168 U/L Creatine Kinase MB 0.9 <6.6 NG/ML Myoglobin 22.1 10.0-92.0 NG/ML Troponin I < 0.028 < 0.028 < 0.028 <0.028 NG/ML B-Type Natriuretic Peptide 116.3 H <100.0 PG/ML Total Protein 7.4 6.4-8.2 GM/DL Albumin 3.7 3.2-4.5 GM/DL Amylase Level 69 25-125 U/L Lipase 83 H 8-78 U/L Serum Test, Qualitative NEGATIVE NEGATIVE Prothrombin Time 11.9 L 12.2-14.7 SEC INR Comment 0.8 0.8-1.4 Activated Partial Thromboplast Time 27 24-35 SEC D-Dimer 0.50 H 0.00-0.49 UG/ML Triglycerides Level 252 H <150 MG/DL Cholesterol Level 237 H < 200 MG/DL LDL Cholesterol Direct 164 H 1-129 MG/DL VLDL Cholesterol 50 H 5-40 MG/DL HDL Cholesterol 40 40-60 MG/DL Physical Exam Physical Exam Vital Signs Vital Signs - First Documented 10/08/21 21:15 Temp 37.0 Pulse 84 Resp 22 B/P (MAP) 150/86 (107) Pulse Ox 98 O2 Delivery Room Air Capillary Refill : Less Than 3 Seconds Height, Weight, BMI Height: 5'8.00" Weight: 189lbs. 0.0oz. [id number]; 36.88 BMI Method:Stated General Appearance: No Apparent Distress, WD/WN, Obese, Other (DOES NOT APPEAR TO BE IN ANY DISCOMFORT OR DISTRESS WHATSOEVER; REEKS OF CIGARETTES) Eyes: Bilateral Eye Normal Inspection, Bilateral Eye PERRL, Bilateral Eye EOMI HEENT: Other (EDENTULOUS) Neck: Full Range of Motion, Normal Inspection, Non Tender, Supple Respiratory: Chest Non Tender, Normal Breath Sounds, No Accessory Muscle Use, No Respiratory Distress Cardiovascular: Regular Rate, Rhythm, No Edema, No Gallop, No JVD, No Murmur, Normal Peripheral Pulses Gastrointestinal: Normal Bowel Sounds, No Pulsatile Mass, Non Tender, Soft Back: Normal Inspection, No CVA Tenderness, No Vertebral Tenderness Extremity: Normal Capillary Refill, Normal Inspection, Normal Range of Motion, Non Tender, No Calf Tenderness, No Pedal Edema Neurologic/Psychiatric: Alert, Oriented x3, No Motor/Sensory Deficits, Normal 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 Has chronic stable angina. Baseline EKG abnormality due to old myocardial infarction. Cardiac enzymes were negative. I reassured her at this time. Okay for discharge and follow-up as an outpatient, provide prescription for sublingual nitroglycerin if needed Status post COVID-19 infection, diagnosed on September 26, 2021. Treated as an ou tpatient. Followed by [facility] Coronary artery disease, history of CABG done in 2009. Multiple cardiac cathete rization done, last procedure was done in July 2022 showing patent stent in the mid LAD, total occlusion of the mid right coronary artery within an old stent known to be chronic total occlusion, the LOPEZ to the LAD is atretic and known to be severely diseased, patent vein graft to the obtuse marginal branch with a patent stent in the vein graft. Angina with small vessel disease. COPD, followed and managed by primary care physician Tobaccoism, still an active smoker. Educated on smoking cessation Hyperlipidemia, treated with Lipitor, increase the dose to 80 mg daily Diabetes mellitus, followed and managed by primary care physician Obesity, BMI 36, educated on weight loss Hypothyroidism, maintained on Synthroid 100 mcg daily, followed and managed by primary care physician Depression, maintained on Zoloft High risk for sleep apnea, recommended sleep study as an outpatient Patient is having atypical chest pain, appears to be pleuritic in nature. Okay for discharge on aspirin and Plavix. Add sublingual nitroglycerin as needed. Follow-up with Dr. Aguilar as an outpatient Clinical Quality Measures AMI/AHF: ASA po Prior to arrival: Yes (324 ASA ADMIN BY EMS) ELIJAH ARGUELLES MD Oct 09, 2021 09:18
[2021-10-09] MEDS ORDERED: CLOPIDOGREL 75 MG (PLAVIX) TABLET PO SCH (09:30)
--- NOTE | 2021-10-09 10:50 | Tele-ICU Consult ---
History of Present Illness History of Present Illness Date Seen by Provider: Oct 09, 2021 Time Seen by Provider: 09:37 Date of Admission Reason for Visit: Chest pain Allergies and Home Medications Allergies Coded Allergies: Penicillins (Verified Allergy, Unknown, 05/16/21) Sulfa (Sulfonamide Antibiotics) (Verified Allergy, Unknown, 05/16/21) naproxen (Verified Allergy, Unknown, HIVES, NAUSEA--can take ibuprofen, 05/16/21) Home Medications Acetaminophen 500 Mg Tablet, 500 MG PO Q8H PRN for PAIN-MILD (1-4), (Reported) Aripiprazole 15 Mg Tablet, 7.5 MG PO DAILY, (Reported) TAKES OF A 15MG TAB Aspirin 81 Mg Tablet.dr, 81 MG PO DAILY, (Reported) Atorvastatin Calcium 80 Mg Tablet, 80 MG PO HS Prescribed by: RAINE HERNANDEZ on 08/16/21 1213 Clopidogrel Bisulfate 75 Mg Tablet, 75 MG PO DAILY, (Reported) Eszopiclone 2 Mg Tablet, 2 MG PO HS, (Reported) Famotidine 20 Mg Tablet, 20 MG PO BID, (Reported) Hydroxyzine HCl 25 Mg Tablet, 25 MG PO BID PRN for ANXIETY, (Reported) Metformin HCl 500 Mg Tablet, 500 MG PO DAILY, (Reported) Metoprolol Tartrate 25 Mg Tablet, 12.5 MG PO BID, (Reported) TAKES OF A 25MG TAB Ondansetron 4 Mg Tab.rapdis, 4 MG PO Q6H PRN for NAUSEA/VOMITING Prescribed by: MARGARET HDEZ on 09/27/211 Ranolazine 500 Mg Tab.er.12h, 1,000 MG PO BID Prescribed by: RAINE HERNANDEZ on 08/16/21 1213 Sertraline HCl 100 Mg Tablet, 100 MG PO HS, (Reported) Past Medical/Social/Family Hx Patient Social History Tobacco Use?: Yes Tobacco type used: Cigarettes Smoking Status: Current Everyday Smoker Smokeless Tobacco Frequency: Never a User Use of E-Cig and/or Vaping dev: No Substance use?: No Alcohol Use?: No Pt stated abuse/neglect: No Immunizations Up To Date Influenza Vaccine Up-to-Date: Yes; Up-to-Date First/Initial COVID19 Vaccinat: not vaccinated Second COVID19 Vaccination Mark: not vaccinated Tetanus Booster (TDap): More Than 5 Years Date of Pneumonia Vaccine: Jun 20, 2013 Current Status status: No Advance Directives: No Communicates: Verbally Primary Language: Lao Preferred Spoken Language: Lao Implanted or Applied Medical D: Stents Past Medical History See Problem List Family Medical History Family Hx: SOCIAL HISTORY: -SMOKES AT LEAST 1 PPD -ETOH--DENIES USE -DENIES DRUG USE ADDITIONAL PAST MEDICAL AND PROCEDURAL HISTORY: -FABRICE FUNDOPLICATION -CHOLECYSTECTOMY -TONSILLECTOMY/ADENOIDECTOMY -TRACHEOSTOMY/LATER REMOVAL -PT HAD NSTEMI AND WAS ADMITTED 04/22/20-04/24/20, HAD CARDIAC CATH 04/23/20 AND HAD STENT X 1 TO RCA -PT HAS PREVIOUSLY HAD A CABG IN 2009, MULTIPLE STENTS TO RCA, AND STENT TO CIRCUMFLEX IN THE PAST. CARDIAC CATH 05/24/[address] ROBLES: CONCLUSIONS: 1. Coronary artery disease as detailed above. The left anterior descending and left circumflex arteries have patent stents. An obtuse marginal branch of the left circumflex has a patent aortocoronary graft, this graft had 70% ostial stenosis and was successfully stented with Radha 2.5 x 18 mm stent, deployed at 20 atmospheres. The right coronary artery had 90% proximal stenosis, which went to 50% stenosis following balloon angioplasty. The mid and distal right coronary artery have in-stent occlusion. This is a very long segment of occlusion and attempts at percutaneous intervention to this portion of the vessel were unsuccessful. 2. Mild elevation of left ventricular end-diastolic pressure. DISCUSSION AND RECOMMENDATIONS: Risk factor modification has been advised. Dual antiplatelet therapy is being continued. Because of low blood pressure, she is not a suitable candidate for beta blockers or MORRO inhibitors or angiotensin receptor blockers. Statin therapy is being continued. -CARDIAC CATH 08/14/[address] ALAN: IMPRESSION: 1. Normal central aortic pressure with elevated left ventricular end-diastolic pressure. 2. Patent stent in the mid left anterior descending coronary artery. 3. Total occlusion of the mid right coronary artery within previously placed stents. This is known to be a chronic total occlusion. 4. The left internal mammary artery graft to left anterior descending coronary artery is known to be atretic and was not studied during this procedure. 5. Patent saphenous vein graft to the obtuse marginal branch with a patent stent in the ostium. 6. The patient is known to have normal left ventricular systolic function with an estimated ejection fraction of 60-65% by echocardiogram performed earlier today. 7. The patient may be having angina from small vessel disease. Review of Systems Constitutional: see HPI Focused Exam Height, Weight, BMI Height: 5'8.00" Weight: 189lbs. 0.0oz. 85.812587vy; 36.88 BMI Method:Stated Exam Exam Patient acknowledged, consented, and participated in this virtual visit which was conducted using real time audio/video Vital Signs Date Time Temp Pulse Resp B/P (MAP) Pulse Ox O2 Delivery O2 Flow Rate FiO2 10/09/21 09:00 98 Room Air 10/09/21 08:00 71 15 101/65 (77) 93 Room Air 10/09/21 08:00 36.2 10/09/21 07:00 71 10/09/21 05:30 70 17 99/58 (72) 93 Room Air 10/09/21 05:00 69 14 95/67 (76) 95 Room Air 10/09/21 04:30 66 17 89/63 (72) 96 Room Air 10/09/21 04:21 80 10/09/21 04:15 70 17 93/70 (78) 97 Room Air 10/09/21 04:00 67 16 105/66 (79) 97 Room Air 10/09/21 04:00 99 Room Air 10/09/21 03:49 36.0 70 20 105/66 (79) 97 Room Air 10/09/21 03:32 37.0 67 16 121/68 95 Room Air 10/08/21 21:15 37.0 84 22 150/86 (107) 98 Room Air I & O 10/09/21 07:00 Intake Total 0 ml Balance 0 ml Height & Weight Height: 5'8.00" Weight: 189lbs. 0.0oz. 85.801312hh; 36.88 BMI Method:Stated General Appearance: No Apparent Distress, WD/WN, Obese, Other (DOES NOT APPEAR TO BE IN ANY DISCOMFORT OR DISTRESS WHATSOEVER; REEKS OF CIGARETTES) HEENT: Other (EDENTULOUS) Neck: Full Range of Motion, Normal Inspection, Non Tender, Supple Respiratory: Chest Non Tender, Normal Breath Sounds, No Accessory Muscle Use, No Respiratory Distress Cardiovascular: Regular Rate, Rhythm, No Edema, No Gallop, No JVD, No Murmur, Normal Peripheral Pulses Capillary Refill: Less Than 3 Seconds Extremity: Normal Capillary Refill, Normal Inspection, Normal Range of Motion, Non Tender, No Calf Tenderness, No Pedal Edema Neurologic/Psychiatric: Alert, Oriented x3, No Motor/Sensory Deficits, Normal Mood/Affect, 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 ROS as per chart and RN report Now in ICU, hemodynamically stable Video assessment done using teleICU camera, rest of exam as per RN Discussed with RN. Consultants: jan Hospital course: (10/09) 46/F- Chest pain, shortness of air// nitro and mso4 in the ER. Mult visits for same w/extensive cv/copd/smoking/anxiety hx. A/P SOB , CP - no PE on CT 10/08 , no PNA or effusion -on RA Chest pain. extensive CAD , stented -appears to be pleuritic in nature , Has chronic stable angina -as per cards - no w/up advised - SL nitroglycerin prn Status post COVID-19 infection -diagnosed on September 26, 2021, unvaccinated -Treated as an outpatient with ? ABX - not cleat COPD -cont to smoke - not freddy meds here or outpt , no wheezing , on RA Diabetes mellitus - ISS Obesity, BMI 36 - at risk for REINA Hypothyroidism Depression, maintained on Zoloft Lines : (Central Line Necessity Reviewed) Cerna: OG: Nutrition: Analgesia: Anxiety/ delirium VTE Prophylaxis: ambulate Stress Ulcer Prophylaxis: na Plans in collaboration with bedside consultants and IM MDs. Discussed with RN to reach out if any questions or concerns A total of 33 minutes of critical care time was devoted to this patient today, required to treat and/or prevent further deterioration of critical care condition ( as above ) . NITESH SUE MD Oct 09, 2021 10:50
[2021-10-09] MEDS ORDERED: NITR0.3T7 SL ×2 (13:02)
[2021-10-09] MEDS ORDERED: PANT40TA2 PO ×2 (13:03)
--- NOTE | 2021-10-09 13:11 | Discharge Summary ---
Discharge Summary Hospital Course Problems/Dx: (1) Chest pain Status: Acute Hospital Course Date of Admission: Oct 09, 2021 at 01:40 Admission Diagnosis : Chest pain Family Physician/Provider: Edwar Chamorro DO Date of Discharge: 10/09/21 Discharge Diagnosis: Chest pain Hospital Course: Melanie Champagne is a 46 year old female with PMH HTN, T2DM, HLD, CAD, hypothyroidism, depression, anxiety, who presented with chest pain. She has a history of CAD with small vessel disease not amenable to stenting. Cardiology was consulted and assisted with her care. Her troponin was trended and remained negative. Her EKG was unchanged from prior. Her chest pain resolved. She was given a prescription for sublingual nitroglycerin for angina. She was given a prescription for Protonix for acid reflux. She should continue Aspirin and Plavix. She should follow up with Dr. Chamorro and Dr. Macias. She was discharged home in stable condition. Labs and Pending Lab Test: Laboratory Tests 10/08/21 21:20: White Blood Count 6.6, Red Blood Count 4.25, Hemoglobin 13.7, Hematocrit 41, Mean Corpuscular Volume 96, Mean Corpuscular Hemoglobin 32, Mean Corpuscular Hemoglobin Concent 34, Red Cell Distribution Width 12.6, Platelet Count 334, Mean Platelet Volume 10.4, Immature Granulocyte % (Auto) 0, Neutrophils (%) (Auto) 42, Lymphocytes (%) (Auto) 46H, Monocytes (%) (Auto) 7, Eosinophils (%) (Auto) 5, Basophils (%) (Auto) 1, Neutrophils # (Auto) 2.8, Lymphocytes # (Auto) 3.0, Monocytes # (Auto) 0.5, Eosinophils # (Auto) 0.3, Basophils # (Auto) 0.1, Immature Granulocyte # (Auto) 0.0, Sodium Level 136, Potassium Level 4.3, Chloride Level 105, Carbon Dioxide Level 17L, Anion Gap 14, Blood Urea Nitrogen 7, Creatinine 0.92, Estimat Glomerular Filtration Rate 77, BUN/Creatinine Ratio 8, Glucose Level 240H, Calcium Level 8.7, Corrected Calcium 8.9, Magnesium Level 1.8, Total Bilirubin 0.4, Aspartate Amino Transf (AST/SGOT) 23, Alanine Aminotransferase (ALT/SGPT) 15, Alkaline Phosphatase 98, Total Creatine Kinase 54, Creatine Kinase MB 0.9, Myoglobin 22.1, Troponin I < 0.028, B-Type Natriuretic Peptide 116.3H, Total Protein 7.4, Albumin 3.7, Amylase Level 69, Lipase 83H, Serum Test, Qualitative NEGATIVE 10/08/21 21:40: Prothrombin Time 11.9L, INR Comment 0.8, Activated Partial Thromboplast Time 27, D-Dimer 0.50H 10/09/21 00:53: Troponin I < 0.028 10/09/21 03:58: White Blood Count 6.4, Red Blood Count 3.90, Hemoglobin 12.5, Hematocrit 38, Mean Corpuscular Volume 97, Mean Corpuscular Hemoglobin 32, Mean Corpuscular Hemoglobin Concent 33, Red Cell Distribution Width 12.8, Platelet Count 302, Mean Platelet Volume 10.4, Immature Granulocyte % (Auto) 0, Neutrophils (%) (Auto) 34L, Lymphocytes (%) (Auto) 52H, Monocytes (%) (Auto) 9, Eosinophils (%) (Auto) 5, Basophils (%) (Auto) 1, Neutrophils # (Auto) 2.2, Lymphocytes # (Auto) 3.3, Monocytes # (Auto) 0.5, Eosinophils # (Auto) 0.3, Basophils # (Auto) 0.1, Immature Granulocyte # (Auto) 0.0, Sodium Level 138, Potassium Level 4.2, Chloride Level 106, Carbon Dioxide Level 22, Anion Gap 10, Blood Urea Nitrogen 7, Creatinine 0.82, Estimat Glomerular Filtration Rate 88, BUN/Creatinine Ratio 9, Glucose Level 108H, Calcium Level 8.6, Troponin I < 0.028, Triglycerides Level 252H, Cholesterol Level 237H, LDL Cholesterol Direct 164H, VLDL Cholesterol 50H, HDL Cholesterol 40 10/09/21 10:17: Glucometer 116H Home Meds Active Protonix (Pantoprazole Sodium) 40 Mg Tablet.dr 40 Mg PO BID 30 Days Nitroglycerin 0.3 Mg Tab.subl 0.3 Mg SL Q5MIN PRN X3 PRN 30 Days Ondansetron Odt (Ondansetron) 4 Mg Tab.rapdis 4 Mg PO Q6H PRN Atorvastatin Calcium 80 Mg Tablet 80 Mg PO HS 30 Days Ranexa (Ranolazine) 500 Mg Tab.er.12h 1,000 Mg PO BID 30 Days Reported Tylenol Extra Strength (Acetaminophen) 500 Mg Tablet 500 Mg PO Q8H PRN Acid Plant Maintenance Worker (FAMOTIDINE) (Famotidine) 20 Mg Tablet 20 Mg PO BID Lunesta (Eszopiclone) 2 Mg Tablet 2 Mg PO HS Metformin HCl 500 Mg Tablet 500 Mg PO DAILY Hydroxyzine HCl 25 Mg Tablet 25 Mg PO BID PRN Abilify (Aripiprazole) 15 Mg Tablet 7.5 Mg PO DAILY TAKES OF A 15MG TAB Sertraline HCl 100 Mg Tablet 100 Mg PO HS Metoprolol Tartrate 25 Mg Tablet 12.5 Mg PO BID TAKES OF A 25MG TAB Plavix (Clopidogrel Bisulfate) 75 Mg Tablet 75 Mg PO DAILY Aspirin EC (Aspirin) 81 Mg Tablet.dr 81 Mg PO DAILY Assessment/Pt Instructions Take medications as prescribed. Begin taking Protonix twice daily for the next month, then once daily. You are being given a prescription for sublingual nitroglycerin to use when you have anginal chest pain. Follow up with your PCP and Earthmoving [employer]. Return with worsening chest pain, shortness of breath, or if you feel like you are getting worse. Discharge Planning: <30 minutes discharge planning Discharge Instructions Discharge Diet: No Restrictions Activity as Tolerated: Yes Consultations Cardiology Discharge Physical Examination Vital Signs Vital Signs Date Time Temp Pulse Resp B/P (MAP) Pulse Ox O2 Delivery O2 Flow Rate FiO2 10/09/21 12:33 74 10/09/21 12:00 23 123/81 (95) 95 Room Air 10/09/21 11:20 36.4 General Appearance: No Apparent Distress, Chronically ill, Obese Respiratory: Lungs Clear, Normal Breath Sounds, No Respiratory Distress Cardiovascular: Regular Rate, Rhythm, No Edema, No Murmur, Normal Peripheral Pulses Gastrointestinal: Normal Bowel Sounds, Non Tender, Soft Extremity: Normal Inspection, Non Tender, No Pedal Edema Skin: Normal Color, Warm/Dry Neurologic/Psychiatric: Alert, No Motor/Sensory Deficits, Other (flat affect) Allergies: Coded Allergies: Penicillins (Verified Allergy, Unknown, 05/16/21) Sulfa (Sulfonamide Antibiotics) (Verified Allergy, Unknown, 05/16/21) naproxen (Verified Allergy, Unknown, HIVES, NAUSEA--can take ibuprofen, ) Copy Copies To 1: EDWAR CHAMORRO DO Discharge Summary Date of Admission Oct 09, 2021 at 01:40 Date of Discharge Discharge Date: Oct 09, 2021 Discharge Time: 13:07 Admission Diagnosis Chest pain Consults/Procedures Consulations Cardiology Discharge Diagnosis (1) Chronic chest pain Status: Acute Clinical Quality Measures AMI/AHF: ASA po Prior to arrival: Yes (324 ASA ADMIN BY EMS) RAINE HERNANDEZ MD Oct 09, 2021 13:11
== END 2021-10-09 13:02 | disposition home or self-care (01) ==
LOC: EDUNIT# 21:15 → ER 21:17 → ICU 21:18 → UNDOADMOB 10-09 01:40 → ICU 10-09 01:40 → UNDODISOB 10-09 13:33
PROVIDERS: ADMIT Internal Medicine Cardiovascular Disease; ATTEND Internal Medicine
DX: R07.89 Other chest pain (principal); I10 Essential (primary) hypertension; I25.2 Old myocardial infarction; I25.10 Atherosclerotic heart disease of native coronary artery without angina pectoris; E78.5 Hyperlipidemia, unspecified; E03.9 Hypothyroidism, unspecified; E11.9 Type 2 diabetes mellitus without complications; E78.00 Pure hypercholesterolemia, unspecified; K21.9 Gastro-esophageal reflux disease without esophagitis; J44.9 Chronic obstructive pulmonary disease, unspecified; M19.90 Unspecified osteoarthritis, unspecified site; G47.9 Sleep disorder, unspecified; G43.909 Migraine, unspecified, not intractable, without status migrainosus; G40.909 Epilepsy, unspecified, not intractable, without status epilepticus; F32.A Depression, unspecified; F41.9 Anxiety disorder, unspecified; F17.210 Nicotine dependence, cigarettes, uncomplicated; Z79.82 Long term (current) use of aspirin; Z79.02 Long term (current) use of antithrombotics/antiplatelets; Z79.84 Long term (current) use of oral hypoglycemic drugs; Z95.1 Presence of aortocoronary bypass graft; Z86.718 Personal history of other venous thrombosis and embolism
CPT/HCPCS: 71045; 71275; 80048; 80053; 80061; 82150; 82550; 82553; 82947; 83690; 83735; 83874; 83880; 84484 ×2; 84703; 85025 ×2; 85379; 85610; 85730; 93005 ×2; 93041; 96374; 96375; 96376; 99284; G0378; 36415

== ENCOUNTER 2021-10-30 13:09 | Emergency (ER) | payer MEDICARE, MEDICAID ==
[~2021-10-30] VITALS: Ht 165 cm; Wt 97.5 kg
[~2021-10-30 13:09] MED LIST changes: +NITR0.3T7 SL
--- NOTE | 2021-10-30 13:26 | ED Chest Pain ---
General Chief Complaint: Chest Pain Stated Complaint: CHEST PAIN Source: patient Exam Limitations: no limitations History of Present Illness Date Seen by Provider: Oct 30, 2021 Time Seen by Provider: 13:23 Initial Comments To ER by private vehicle with reports of chest pain and palpitations that began at 11 AM while sitting on the couch. She also has dizziness. She quit smoking 1 week ago and started Chantix. She has known coronary disease with stenting, hyperlipidemia hypertension Timing/Duration: changing over time Severity/Quality: moderate Location: central Radiation: no radiation Activities at Onset: none Prior CP/Workup: angina ASA po JUNIOR MECHANICAL ENGINEER: No NTG SL JUNIOR MECHANICAL ENGINEER: Yes Associated Symptoms: nausea/vomiting Allergies and Home Medications Allergies Coded Allergies: Penicillins (Verified Allergy, Unknown, 05/16/21) Sulfa (Sulfonamide Antibiotics) (Verified Allergy, Unknown, 05/16/21) naproxen (Verified Allergy, Unknown, HIVES, NAUSEA--can take ibuprofen, 05/16/21) Patient Home Medication List Home Medication List Reviewed: Yes Acetaminophen (Tylenol Extra Strength) 500 Mg Tablet, 500 MG PO Q8H PRN for PAIN-MILD (1-4), (Reported) Entered as Reported by: DOLORES LARIOS on 08/15/21 1601 Aripiprazole (Abilify) 15 Mg Tablet, 7.5 MG PO DAILY, (Reported) Entered as Reported by: SONJA OH on 06/27/21 1036 Aspirin (Aspirin EC) 81 Mg Tablet.dr, 81 MG PO DAILY, (Reported) Entered as Reported by: SONJA OH on 05/24/21 0959 Atorvastatin Calcium (Atorvastatin Calcium) 80 Mg Tablet, 80 MG PO HS Prescribed by: RAINE HERNANDEZ on 08/16/21 1213 Clopidogrel Bisulfate (Plavix) 75 Mg Tablet, 75 MG PO DAILY, (Reported) Entered as Reported by: SONJA OH on 05/26/21 1059 Eszopiclone (Lunesta) 2 Mg Tablet, 2 MG PO HS, (Reported) Entered as Reported by: DOLORES LARIOS on 08/15/21 1555 Hydroxyzine HCl (Hydroxyzine HCl) 25 Mg Tablet, 25 MG PO BID PRN for ANXIETY, (Reported) Entered as Reported by: SONJA OH on 06/27/21 1036 Metformin HCl (Metformin HCl) 500 Mg Tablet, 500 MG PO DAILY, (Reported) Entered as Reported by: DOLORES LARIOS on 08/15/21 1552 Metoprolol Tartrate (Metoprolol Tartrate) 25 Mg Tablet, 12.5 MG PO BID, (Reported) Entered as Reported by: SONJA OH on 05/26/21 1059 Nitroglycerin (Nitroglycerin) 0.3 Mg Tab.subl, 0.3 MG SL Q5MIN PRN X3 PRN for CHEST PAIN (ANGINA) Prescribed by: RAINE HERNANDEZ on 10/09/21 1302 Ondansetron (Ondansetron Odt) 4 Mg Tab.rapdis, 4 MG PO Q6H PRN for NAUSEA/VOMITING Prescribed by: MARGARET HDEZ on 09/27/21 2231 Pantoprazole Sodium (Protonix) 40 Mg Tablet.dr, 40 MG PO BID Prescribed by: RAINE HERNANDEZ on 10/09/21 1303 Ranolazine (Ranexa) 500 Mg Tab.er.12h, 1,000 MG PO BID Prescribed by: RAINE HERNANDEZ on 08/16/21 1213 Sertraline HCl (Sertraline HCl) 100 Mg Tablet, 100 MG PO HS, (Reported) Entered as Reported by: SONJA OH on 06/27/21 1036 Review of Systems Review of Systems Constitutional: see HPI; No chills; dizziness EENTM: No Symptoms Reported Respiratory: No Symptoms Reported Cardiovascular: See HPI, Chest Pain Gastrointestinal: No Symptoms Reported Genitourinary: No Symptoms Reported Musculoskeletal: no symptoms reported Skin: no symptoms reported Psychiatric/Neurological: No Symptoms Reported Endocrine: No Symptoms Reported Hematologic/Lymphatic: No Symptoms Reported Past Wimvdlb-Hnbhah-Xcjqwf Hx Immunizations Up To Date Tetanus Booster (TDap): More than 5yrs First/Initial COVID19 Vaccinat: not vaccinated Second COVID19 Vaccination Mark: not vaccinated Third COVID19 Vaccination Date: not vaccinated Seasonal Allergies Seasonal Allergies: No Past Medical History Surgery/Hospitalization HX: CABG, CARDIAC STENTS, COPD, ASTHMA, HTN, HIGH CHOLESTEROL, GERD, ANXIETY, DEPRESSION 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) Sexually Transmitted Disease: Yes (HERPES) Genitourinary: No Gastrointestinal: Yes (S/P FABRICE FUNDOPLICATION) Gastroesophageal Reflux, Esophagitis, Hiatal Hernia, Gall Bladder Disease Musculoskeletal: Yes Arthritis Endocrine: Yes Hypothyroidsim, Diabetes, Non-Insulin dep HEENT: Yes Chronic Ear Infection Hearing Impairment: Hard of Hearing Cancer: Yes Cervical Did You Recieve Any Treatments: Yes What Type of Treatment Did You: Surgical Intervention Psychosocial: Yes Sleep Difficulties, Anxiety, Suicide Attempts, Depression Integumentary: No Blood Disorders: No Adverse Reaction/Blood Tranf: No Family Medical History No Pertinent Family Hx SOCIAL HISTORY: -SMOKES AT LEAST 1 PPD -ETOH--DENIES USE -DENIES DRUG USE ADDITIONAL PAST MEDICAL AND PROCEDURAL HISTORY: -FABRICE FUNDOPLICATION -CHOLECYSTECTOMY -TONSILLECTOMY/ADENOIDECTOMY -TRACHEOSTOMY/LATER REMOVAL -PT HAD NSTEMI AND WAS ADMITTED 04/22/20-04/24/20, HAD CARDIAC CATH 04/23/20 AND HAD STENT X 1 TO RCA -PT HAS PREVIOUSLY HAD A CABG IN 2009, MULTIPLE STENTS TO RCA, AND STENT TO CIRCUMFLEX IN THE PAST. CARDIAC CATH 05/24/[address] ROBLES: CONCLUSIONS: 1. Coronary artery disease as detailed above. The left anterior descending and left circumflex arteries have patent stents. An obtuse marginal branch of the left circumflex has a patent aortocoronary graft, this graft had 70% ostial stenosis and was successfully stented with Radha 2.5 x 18 mm stent, deployed at 20 atmospheres. The right coronary artery had 90% proximal stenosis, which went to 50% stenosis following balloon angioplasty. The mid and distal right coronary artery have in-stent occlusion. This is a very long segment of occlusion and attempts at percutaneous intervention to this portion of the vessel were unsuccessful. 2. Mild elevation of left ventricular end-diastolic pressure. DISCUSSION AND RECOMMENDATIONS: Risk factor modification has been advised. Dual antiplatelet therapy is being continued. Because of low blood pressure, she is not a suitable candidate for beta blockers or MORRO inhibitors or angiotensin receptor blockers. Statin therapy is being continued. -CARDIAC CATH 08/14/[address] ALAN: IMPRESSION: 1. Normal central aortic pressure with elevated left ventricular end-diastolic pressure. 2. Patent stent in the mid left anterior descending coronary artery. 3. Total occlusion of the mid right coronary artery within previously placed stents. This is known to be a chronic total occlusion. 4. The left internal mammary artery graft to left anterior descending coronary artery is known to be atretic and was not studied during this procedure. 5. Patent saphenous vein graft to the obtuse marginal branch with a patent stent in the ostium. 6. The patient is known to have normal left ventricular systolic function with an estimated ejection fraction of 60-65% by echocardiogram performed earlier today. 7. The patient may be having angina from small vessel disease. Physical Exam Vital Signs Vital Signs - First Documented 10/30/21 13:15 Temp 37.0 Pulse 90 Resp 20 B/P (MAP) 130/56 (80) Pulse Ox 98 O2 Delivery Room Air Capillary Refill : Height, Weight, BMI Height: 5'8.00" Weight: 189lbs. 0.0oz. [id number]; 36.88 BMI Method:Stated General Appearance: No Apparent Distress, WD/WN, Other (No distress. Alert and oriented. Heart rate is 90 sinus no ectopy normal intervals on EKG) HEENT: PERRL/EOMI, TMs Normal Respiratory: No Accessory Muscle Use, No Respiratory Distress Cardiovascular: Regular Rate, Rhythm, Normal Peripheral Pulses Gastrointestinal: Normal Bowel Sounds, Non Tender, Soft Extremity: Normal Capillary Refill, Normal Inspection Neurologic/Psychiatric: Alert, Oriented x3 Skin: Normal Color, Warm/Dry Progress/Results/Core Measures Results/Orders Lab Results Laboratory Tests Test 10/30/21 13:20 10/30/21 15:25 Range/Units White Blood Count 6.9 4.3-11.0 10^3/uL Red Blood Count 4.67 3.80-5.11 10^6/uL Hemoglobin 15.2 11.5-16.0 g/dL Hematocrit 44 35-52 % Mean Corpuscular Volume 94 80-99 fL Mean Corpuscular Hemoglobin 33 25-34 pg Mean Corpuscular Hemoglobin Concent 35 32-36 g/dL Red Cell Distribution Width 12.9 10.0-14.5 % Platelet Count 359 130-400 10^3/uL Mean Platelet Volume 10.0 9.0-12.2 fL Immature Granulocyte % (Auto) 0 % Neutrophils (%) (Auto) 42 42-75 % Lymphocytes (%) (Auto) 45 H 12-44 % Monocytes (%) (Auto) 7 0-12 % Eosinophils (%) (Auto) 4 0-10 % Basophils (%) (Auto) 1 0-10 % Neutrophils # (Auto) 2.9 1.8-7.8 10^3/uL Lymphocytes # (Auto) 3.1 1.0-4.0 10^3/uL Monocytes # (Auto) 0.5 0.0-1.0 10^3/uL Eosinophils # (Auto) 0.3 0.0-0.3 10^3/uL Basophils # (Auto) 0.1 0.0-0.1 10^3/uL Immature Granulocyte # (Auto) 0.0 0.0-0.1 10^3/uL Prothrombin Time 12.5 12.2-14.7 SEC INR Comment 0.9 0.8-1.4 Activated Partial Thromboplast Time 32 24-35 SEC Sodium Level 135 135-145 MMOL/L Potassium Level 4.7 3.6-5.0 MMOL/L Chloride Level 101 98-107 MMOL/L Carbon Dioxide Level 22 21-32 MMOL/L Anion Gap 12 5-14 MMOL/L Blood Urea Nitrogen 10 7-18 MG/DL Creatinine 0.87 0.60-1.30 MG/DL Estimat Glomerular Filtration Rate 82 BUN/Creatinine Ratio 11 Glucose Level 143 H 70-105 MG/DL Calcium Level 9.8 8.5-10.1 MG/DL Corrected Calcium 9.6 8.5-10.1 MG/DL Magnesium Level 1.9 1.6-2.4 MG/DL Total Bilirubin 1.3 H 0.1-1.0 MG/DL Aspartate Amino Transf (AST/SGOT) 15 5-34 U/L Alanine Aminotransferase (ALT/SGPT) 18 0-55 U/L Alkaline Phosphatase 108 40-136 U/L Myoglobin 59.4 10.0-92.0 NG/ML Troponin I < 0.028 < 0.028 <0.028 NG/ML B-Type Natriuretic Peptide 35.6 <100.0 PG/ML Total Protein 7.4 6.4-8.2 GM/DL Albumin 4.3 3.2-4.5 GM/DL My Orders Orders - TAMRA CABALLERO LEAD PROGRAMMER ANALYST Cbc With Automated Diff (10/30/21 13:19) Magnesium (10/30/21 13:19) Chest 1 View, Ap/Pa Only (10/30/21 13:19) Ekg Tracing (10/30/21 13:19) Comprehensive Metabolic Panel (10/30/21 13:19) Myoglobin Serum (10/30/21:19) Protime With Inr (10/30/21:) Partial Thromboplastin Time (10/30/21 13:19) O2 (10/30/21 13:19) Monitor-Rhythm Ecg Trace Only (10/30/21:) Lipid Panel (10/31/21 06:00) Ed Iv/Invasive Line Start (10/30/21 13:19) Bnp Bandera (10/30/21 13:19) Troponin I Kt (10/30/21 13:19) Aspirin Chewable Tablet (Baby Aspirin Ch (10/30/21 13:30) Hydrocodone/Apap 5/325 Tablet (Lortab 5 (10/30/21 13:30) Antacid Suspension (Mylanta Suspension (10/30/21 13:30) Lidocaine 2% Viscous 15 Ml (Xylocaine Vi (10/30/21 13:30) Lorazepam Injection (Ativan Injection) (10/30/21 14:15) Ondansetron Injection (Zofran Injectio (10/30/21 15:15) Troponin I Kt (10/30/21 15:12) Medications Given in ED Current Medications Medications Dose Ordered Sig/Sara Route Start Time Stop Time Status Last Admin Dose Admin Acetaminophen/ Hydrocodone Bitart 1 ea ONCE ONCE PO 10/30/21 13:30 10/30/21 13:31 DC 10/30/21 13:30 1 EA Al Hydrox/Mg Hydrox/Simethicone 30 ml ONCE ONCE PO 10/30/21 13:30 10/30/21 13:31 DC 10/30/21 13:29 30 ML Aspirin 324 mg ONCE ONCE PO 10/30/21 13:30 10/30/21 13:31 DC 10/30/21 13:30 324 MG Lidocaine HCl 15 ml ONCE ONCE PO 10/30/21 13:30 10/30/21 13:31 DC 10/30/21 13:30 15 ML Lorazepam 1 mg ONCE ONCE IVP 10/30/21 14:15 10/30/21 14:16 DC 10/30/21 14:41 1 MG Ondansetron HCl 8 mg ONCE ONCE IVP 10/30/21 15:15 10/30/21 15:16 DC 10/30/21 15:21 8 MG Vital Signs/I&O 10/30/21 13:15 Temp 37.0 Pulse 90 Resp 20 B/P (MAP) 130/56 (80) Pulse Ox 98 O2 Delivery Room Air Departure Communication (Admissions) NAME: WAN DA SILVA [facility] REC#: [id number] PT STATUS: REG ER : 1975 PHYSICIAN: TAMRA CABALLERO APRN ADMIT DATE: 10/30/21/ER Draft Date of Exam:10/30/21 CHEST 1 VIEW, AP/PA ONLY EXAMINATION: Chest radiograph, portable AP view. DATE: 10/30/2021 1:34 PM. INDICATION: 46-year-old female, chest pain radiating to the left shoulder. Dizziness and nausea. COMPARISON: October 08, 2021. FINDINGS: There are median sternotomy wires. Heart size and mediastinal contours are unchanged. There is no identified pneumothorax. There is no large pleural effusion. There is no identified focal airspace consolidation. There are technical limitations of the exam relating to patient body habitus and difficulties with exposure. IMPRESSION: No identified acute cardiopulmonary abnormality. Dictated on workstation # [id number] Dict: 10/30/21 1335 Trans: 10/30/21 1342 [id number] Interpreted by: ANDRAE INTERIANO MD Electronically signed by: Impression Primary Impression: Chronic chest pain Disposition: 01 HOME, SELF-CARE Condition: Stable Departure-Patient Inst. Decision time for Depature: 16:15 Referrals: EDWAR LOBO DO (PCP/Family) Primary Care Physician Patient Instructions: Chronic Pain (DC) Add. Discharge Instructions: All discharge instructions reviewed with patient and/or family. Voiced understanding. TAMRA CABALLERO APRN Oct 30, 2021 13:26
[2021-10-30] MEDS ORDERED: ANTACID SUSP 30 ML UDC (MYLANTA) PO ONE (13:30)
[2021-10-30] MEDS ORDERED: ASPIRIN 81 MG CHEW (CHILDREN'S ASA) PO ONE (13:30)
[2021-10-30] MEDS ORDERED: LIDOCAINE 2% VISCOUS 15 ML UDC PO ONE (13:30)
[2021-10-30] MEDS ORDERED: HYDROcodone/APAP 5 MG/325 MG (LORTAB) TAB PO ONE (13:30)
[2021-10-30 13:36] LABS: BASOPHILS # (AUTO) 0.1 10^3/uL (0.0-0.1); BASOPHILS % (AUTO) 1 % (0-10); EOSINOPHILS # (AUTO) 0.3 10^3/uL (0.0-0.3); EOSINOPHILS % (AUTO) 4 % (0-10); HEMATOCRIT 44 % (35-52); HEMOGLOBIN 15.2 g/dL (11.5-16.0); LYMPHOCYTES # (AUTO) 3.1 10^3/uL (1.0-4.0); LYMPHOCYTES % (AUTO) 45 % (12-44); MEAN CORPUSCULAR HEMOGLOBIN 33 pg (25-34); MEAN CORPUSCULAR HGB CONC 35 g/dL (32-36); MEAN CORPUSCULAR VOLUME 94 fL (80-99); MONOCYTES # (AUTO) 0.5 10^3/uL (0.0-1.0); MONOCYTES % (AUTO) 7 % (0-12); NEUTROPHILS # (AUTO) 2.9 10^3/uL (1.8-7.8); NEUTROPHILS % (AUTO) 42 % (42-75); PLATELET COUNT 359 10^3/uL (130-400); WHITE BLOOD COUNT 6.9 10^3/uL (4.3-11.0)
[2021-10-30 13:39] LABS: ALBUMIN 4.3 GM/DL (3.2-4.5); INR 0.9 (0.8-1.4); POTASSIUM 4.7 MMOL/L (3.6-5.0); PROTHROMBIN TIME PATIENT 12.5 SEC (12.2-14.7)
[2021-10-30 13:40] LABS: CALCIUM 9.8 MG/DL (8.5-10.1)
[2021-10-30 13:42] LABS: TOTAL PROTEIN 7.4 GM/DL (6.4-8.2)
[2021-10-30 13:43] LABS: BILIRUBIN,TOTAL 1.3 MG/DL (0.1-1.0)
--- NOTE | 2021-10-30 13:43 | Diagnostic Imaging Report ---
EXAMINATION: Chest radiograph, portable AP view. DATE: 10/30/2021 1:34 PM. INDICATION: 46-year-old female, chest pain radiating to the left shoulder. Dizziness and nausea. COMPARISON: October 08, 2021. FINDINGS: There are median sternotomy wires. Heart size and mediastinal contours are unchanged. There is no identified pneumothorax. There is no large pleural effusion. There is no identified focal airspace consolidation. There are technical limitations of the exam relating to patient body habitus and difficulties with exposure. IMPRESSION: No identified acute cardiopulmonary abnormality. Dictated by: Dictated on workstation # [id number]
[2021-10-30 13:45] LABS: CREATININE SERUM 0.87 MG/DL (0.60-1.30)
[2021-10-30 13:48] LABS: MAGNESIUM 1.9 MG/DL (1.6-2.4)
[2021-10-30] MEDS ORDERED: LORazepam INJ 2 MG/ML (ATIVAN) VIAL IVP ONE (14:15)
[2021-10-30] MEDS ORDERED: ONDANSETRON 4 MG/2 ML (SDV) Z0FRAN IVP ONE (15:15)
[2021-10-30 16:19] VITALS: BP 115/89
== END 2021-10-30 16:19 | disposition home or self-care (01) ==
LOC: EDUNIT# 13:09 → ER 13:11
DX: G89.29 Other chronic pain (principal); R07.9 Chest pain, unspecified; Z87.891 Personal history of nicotine dependence
CPT/HCPCS: 36415; 71045; 80053; 83735; 83874; 83880; 84484; 85025; 85610; 85730; 93005; 93041

== ENCOUNTER 2021-10-30 22:18 | Emergency (ER) | payer MEDICARE, MEDICAID ==
[2021-10-30] MEDS ORDERED: LACTATED RINGERS 1,000 ML IV STA (22:26)
[2021-10-30] MEDS ORDERED: LIDOCAINE 2% VISCOUS 15 ML UDC PO ONE (22:30)
[2021-10-30] MEDS ORDERED: PANTOPRAZOLE 40 MG (PROTONIX) VIAL IV ONE (22:30)
[2021-10-30] MEDS ORDERED: ANTACID SUSP 30 ML UDC (MYLANTA) PO ONE (22:30)
--- NOTE | 2021-10-30 22:37 | ED Chest Pain ---
General Chief Complaint: Chest Pain Stated Complaint: CHEST PAIN Nursing Triage Note: TO ED [facility] TO ROOM 7 WITH LEFT SIDED CP WHILE SITTING IN RECLINER PLAYING CARDS WITH A FRIEND. PT WAS DC'D FROM THIS ER WITH CP EARLIER TODAY. 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 Source: patient Exam Limitations: no limitations History of Present Illness Date Seen by Provider: Oct 30, 2021 Time Seen by Provider: 22:20 Initial Comments Here with persistent left-sided chest pain today. She was seen earlier and had full evaluation without any significant findings and sent home. After getting home she had a somnolence and then started having severe left-sided chest pain again under the left breast and radiating to the middle of the chest is sharp and 9 out of 10 without relief. She did try nitro at home and that did not help . She has had aspirin and nitro did get a already. Earlier treatment included GI cocktail and narcotics she went home. She did mention earlier that she usually has to have a heart catheter find what is going on although did have heart cath done July of last year without any significant changes but does have of disease and was determined to be likely small vessel disease. No report of nausea, vomiting, breathing problems or swelling. Timing/Duration: 1-3 hours, intermittent Severity/Quality: moderate, severe, aching, sharp Location: epigastric Radiation: other (Central chest) Prior CP/Workup: angina, cardiac cath, echocardiography ASA po IUSS ACOUSTIC ANALYST: Yes NTG SL IUSS ACOUSTIC ANALYST: Yes Associated Symptoms: abdominal pain; No fever/chills, No nausea/vomiting, No shortness of breath, No weakness Allergies and Home Medications Allergies Coded Allergies: Penicillins (Verified Allergy, Unknown, 05/16/21) Sulfa (Sulfonamide Antibiotics) (Verified Allergy, Unknown, 05/16/21) naproxen (Verified Allergy, Unknown, HIVES, NAUSEA--can take ibuprofen, 05/16/21) Patient Home Medication List Home Medication List Reviewed: Yes Acetaminophen (Tylenol Extra Strength) 500 Mg Tablet, 500 MG PO Q8H PRN for PAIN-MILD (1-4), (Reported) Entered as Reported by: DOLORES LARIOS on 08/15/21 1601 Aripiprazole (Abilify) 15 Mg Tablet, 7.5 MG PO DAILY, (Reported) Entered as Reported by: SONJA OH on 06/27/21 1036 Aspirin (Aspirin EC) 81 Mg Tablet.dr, 81 MG PO DAILY, (Reported) Entered as Reported by: SONJA OH on 05/24/21 0959 Atorvastatin Calcium (Atorvastatin Calcium) 80 Mg Tablet, 80 MG PO HS Prescribed by: RAINE HERNANDEZ on 08/16/21 1213 Clopidogrel Bisulfate (Plavix) 75 Mg Tablet, 75 MG PO DAILY, (Reported) Entered as Reported by: SONJA OH on 05/26/21 1059 Eszopiclone (Lunesta) 2 Mg Tablet, 2 MG PO HS, (Reported) Entered as Reported by: DOLORES LARIOS on 08/15/21 1555 Hydroxyzine HCl (Hydroxyzine HCl) 25 Mg Tablet, 25 MG PO BID PRN for ANXIETY, (Reported) Entered as Reported by: SONJA OH on 06/27/21 1036 Metformin HCl (Metformin HCl) 500 Mg Tablet, 500 MG PO DAILY, (Reported) Entered as Reported by: DOLORES LARIOS on 08/15/21 1552 Metoprolol Tartrate (Metoprolol Tartrate) 25 Mg Tablet, 12.5 MG PO BID, (Reported) Entered as Reported by: SONJA OH on 05/26/21 1059 Nitroglycerin (Nitroglycerin) 0.3 Mg Tab.subl, 0.3 MG SL Q5MIN PRN X3 PRN for CHEST PAIN (ANGINA) Prescribed by: RAINE HERNANDEZ on 10/09/21 1302 Ondansetron (Ondansetron Odt) 4 Mg Tab.rapdis, 4 MG PO Q6H PRN for NAUSEA/VOMITING Prescribed by: MARGARET HDEZ on 09/27/21 2231 Pantoprazole Sodium (Protonix) 40 Mg Tablet.dr, 40 MG PO BID Prescribed by: RAINE HERNANDEZ on 10/09/21 1303 Ranolazine (Ranexa) 500 Mg Tab.er.12h, 1,000 MG PO BID Prescribed by: RAINE HERNANDEZ on 08/16/21 1213 Sertraline HCl (Sertraline HCl) 100 Mg Tablet, 100 MG PO HS, (Reported) Entered as Reported by: SONJA OH on 06/27/21 1036 Review of Systems Review of Systems Constitutional: see HPI; No chills; fever EENTM: No Nose Congestion, No Throat Pain Respiratory: Denies Cough, Denies Shortness of Air Cardiovascular: Chest Pain; Denies Edema Gastrointestinal: Abdominal Pain; Denies Nausea, Denies Vomiting Genitourinary: No Symptoms Reported Musculoskeletal: no symptoms reported Skin: no symptoms reported Psychiatric/Neurological: Anxiety; Denies Weakness All Other Systems Reviewed Negative Unless Noted: Yes Past Wafhsrt-Siuhdv-Wpgdnf Hx Patient Social History Tobacco Use?: Yes Tobacco type used: Cigarettes Smoking Status: Former Smoker Substance use?: No Alcohol Use?: No Immunizations Up To Date Tetanus Booster (TDap): More than 5yrs Influenza Vaccine Up-to-Date: Yes; Up-to-Date First/Initial COVID19 Vaccinat: not vaccinated Second COVID19 Vaccination Makr: not vaccinated Third COVID19 Vaccination Date: not vaccinated 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 Seasonal Allergies Seasonal Allergies: No Past Medical History Surgery/Hospitalization HX: CABG, CARDIAC STENTS, COPD, ASTHMA, HTN, HIGH CHOLESTEROL, GERD, ANXIETY, DEPRESSION 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) Sexually Transmitted Disease: Yes (HERPES) Genitourinary: No Gastrointestinal: Yes (S/P FABRICE FUNDOPLICATION) Gastroesophageal Reflux, Esophagitis, Hiatal Hernia, Gall Bladder Disease Musculoskeletal: Yes Arthritis Endocrine: Yes Hypothyroidsim, Diabetes, Non-Insulin dep HEENT: Yes Chronic Ear Infection Hearing Impairment: Hard of Hearing Cancer: Yes Cervical Did You Recieve Any Treatments: Yes What Type of Treatment Did You: Surgical Intervention Psychosocial: Yes Sleep Difficulties, Anxiety, Suicide Attempts, Depression Integumentary: No Blood Disorders: No Adverse Reaction/Blood Tranf: No Family Medical History Reviewed Nursing Family Hx No Pertinent Family Hx SOCIAL HISTORY: -SMOKES AT LEAST 1 PPD -ETOH--DENIES USE -DENIES DRUG USE ADDITIONAL PAST MEDICAL AND PROCEDURAL HISTORY: -FABRICE FUNDOPLICATION -CHOLECYSTECTOMY -TONSILLECTOMY/ADENOIDECTOMY -TRACHEOSTOMY/LATER REMOVAL -PT HAD NSTEMI AND WAS ADMITTED 04/22/20-04/24/20, HAD CARDIAC CATH 04/23/20 AND HAD STENT X 1 TO RCA -PT HAS PREVIOUSLY HAD A CABG IN 2009, MULTIPLE STENTS TO RCA, AND STENT TO CIRCUMFLEX IN THE PAST. CARDIAC CATH 05/24/[address] AGUILAR: CONCLUSIONS: 1. Coronary artery disease as detailed above. The left anterior descending and left circumflex arteries have patent stents. An obtuse marginal branch of the left circumflex has a patent aortocoronary graft, this graft had 70% ostial stenosis and was successfully stented with Radha 2.5 x 18 mm stent, deployed at 20 atmospheres. The right coronary artery had 90% proximal stenosis, which went to 50% stenosis following balloon angioplasty. The mid and distal right coronary artery have in-stent occlusion. This is a very long segment of occlusion and attempts at percutaneous intervention to this portion of the vessel were unsuccessful. 2. Mild elevation of left ventricular end-diastolic pressure. DISCUSSION AND RECOMMENDATIONS: Risk factor modification has been advised. Dual antiplatelet therapy is being continued. Because of low blood pressure, she is not a suitable candidate for beta blockers or MORRO inhibitors or angiotensin receptor blockers. Statin therapy is being continued. -CARDIAC CATH 08/14/[address] ALAN: IMPRESSION: 1. Normal central aortic pressure with elevated left ventricular end-diastolic pressure. 2. Patent stent in the mid left anterior descending coronary artery. 3. Total occlusion of the mid right coronary artery within previously placed stents. This is known to be a chronic total occlusion. 4. The left internal mammary artery graft to left anterior descending coronary artery is known to be atretic and was not studied during this procedure. 5. Patent saphenous vein graft to the obtuse marginal branch with a patent stent in the ostium. 6. The patient is known to have normal left ventricular systolic function with an estimated ejection fraction of 60-65% by echocardiogram performed earlier today. 7. The patient may be having angina from small vessel disease. Physical Exam Vital Signs Vital Signs - First Documented 10/30/21 22:20 Temp 36.7 Pulse 88 Resp 16 B/P (MAP) 121/82 (95) Pulse Ox 100 O2 Delivery Room Air Capillary Refill : Less Than 3 Seconds Height, Weight, BMI Height: 5'8.00" Weight: 189lbs. 0.0oz. 85.209406xm; 35.00 BMI Method:Stated General Appearance: No Apparent Distress, WD/WN HEENT: PERRL/EOMI, Pharynx Normal Neck: Non Tender, Supple Respiratory: Lungs Clear, Normal Breath Sounds Cardiovascular: Regular Rate, Rhythm, No Murmur Gastrointestinal: Non Tender, Soft Extremity: Normal Inspection, Normal Range of Motion, Non Tender, No Calf Tenderness, No Pedal Edema Neurologic/Psychiatric: Alert, Oriented x3 Skin: Normal Color, Warm/Dry Progress/Results/Core Measures Results/Orders Lab Results Laboratory Tests Test 10/30/21 22:25 Range/Units White Blood Count 7.2 4.3-11.0 10^3/uL Red Blood Count 4.26 3.80-5.11 10^6/uL Hemoglobin 13.8 11.5-16.0 g/dL Hematocrit 40 35-52 % Mean Corpuscular Volume 94 80-99 fL Mean Corpuscular Hemoglobin 32 25-34 pg Mean Corpuscular Hemoglobin Concent 34 32-36 g/dL Red Cell Distribution Width 12.8 10.0-14.5 % Platelet Count 295 130-400 10^3/uL Mean Platelet Volume 10.2 9.0-12.2 fL Immature Granulocyte % (Auto) 0 % Neutrophils (%) (Auto) 35 L 42-75 % Lymphocytes (%) (Auto) 52 H 12-44 % Monocytes (%) (Auto) 8 0-12 % Eosinophils (%) (Auto) 4 0-10 % Basophils (%) (Auto) 1 0-10 % Neutrophils # (Auto) 2.5 1.8-7.8 10^3/uL Lymphocytes # (Auto) 3.8 1.0-4.0 10^3/uL Monocytes # (Auto) 0.6 0.0-1.0 10^3/uL Eosinophils # (Auto) 0.3 0.0-0.3 10^3/uL Basophils # (Auto) 0.1 0.0-0.1 10^3/uL Immature Granulocyte # (Auto) 0.0 0.0-0.1 10^3/uL Prothrombin Time 12.4 12.2-14.7 SEC INR Comment 0.9 0.8-1.4 Activated Partial Thromboplast Time 34 24-35 SEC D-Dimer 0.67 H 0.00-0.49 UG/ML Sodium Level 134 L 135-145 MMOL/L Potassium Level 4.3 3.6-5.0 MMOL/L Chloride Level 104 98-107 MMOL/L Carbon Dioxide Level 20 L 21-32 MMOL/L Anion Gap 10 5-14 MMOL/L Blood Urea Nitrogen 16 7-18 MG/DL Creatinine 1.03 0.60-1.30 MG/DL Estimat Glomerular Filtration Rate 67 BUN/Creatinine Ratio 16 Glucose Level 201 H 70-105 MG/DL Calcium Level 9.2 8.5-10.1 MG/DL Corrected Calcium 9.4 8.5-10.1 MG/DL Magnesium Level 2.0 1.6-2.4 MG/DL Total Bilirubin 0.7 0.1-1.0 MG/DL Aspartate Amino Transf (AST/SGOT) 17 5-34 U/L Alanine Aminotransferase (ALT/SGPT) 19 0-55 U/L Alkaline Phosphatase 94 40-136 U/L Myoglobin 47.3 10.0-92.0 NG/ML Troponin I < 0.028 <0.028 NG/ML Total Protein 6.6 6.4-8.2 GM/DL Albumin 3.8 3.2-4.5 GM/DL Lipase 38 8-78 U/L My Orders Orders - IMER HELLER MD Cbc With Automated Diff (10/30/21:) Magnesium (10/30/21) Chest 1 View, Ap/Pa Only (10/30/21:) Ekg Tracing (10/30/21:) Comprehensive Metabolic Panel (10/30/21) Myoglobin Serum (10/30/21) Protime With Inr (10/30/21) Partial Thromboplastin Time (10/30/21:) O2 (10/30/21:) Monitor-Rhythm Ecg Trace Only (10/30/21) Lipid Panel (10/31/21 06:00) Ed Iv/Invasive Line Start (10/30/21) Lipase (10/30/21:) Fibrin Degradation Products (10/30/21:) Troponin I [place] (10/30/21:) Lidocaine 2% Viscous 15 Ml (Xylocaine Vi (10/30/21 22:30) Antacid Suspension (Mylanta Suspension (10/30/21 22:30) Lactated Ringers (Lr 1000 Ml Iv Solution (10/30/21 22:26) Pantoprazole Injection (Protonix Injecti (10/30/21 22:30) Medications Given in ED Current Medications Medications Dose Ordered Sig/Sara Route Start Time Stop Time Status Last Admin Dose Admin Al Hydrox/Mg Hydrox/Simethicone 30 ml ONCE ONCE PO 10/30/21 22:30 10/30/21 22:31 DC 10/30/21 22:34 30 ML Lidocaine HCl 15 ml ONCE ONCE PO 10/30/21 22:30 10/30/21 22:31 DC 10/30/21 22:35 15 ML Pantoprazole 40 mg ONCE ONCE IV 10/30/21 22:30 10/30/21 22:31 DC 10/30/21 22:34 40 MG Vital Signs/I&O 10/30/21 22:20 Temp 36.7 Pulse 88 Resp 16 B/P (MAP) 121/82 (95) Pulse Ox 100 O2 Delivery Room Air Blood Pressure Mean: 95 Progress Progress Note : Progress Note Seen and evaluated. IV, labs, EKG and chest x-ray ordered. We will add lipase and D-dimer. LR 1 L bolus, GI cocktail and Protonix 40 mg IV ordered. Monitor patient.. Reviewed previous history including last heart cath in July of last year with findings as in HPI. Monitor patient. 2355: Labs do not indicate any significant abnormality. She is overall doing a little better. I do believe this may be related more to gastroparesis secondary to diabetes. This was discussed with the patient. 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 Discharged home with return precautions. Patient verbalized understanding of instructions and agreement with plan. Initial ECG Impression Date: Oct 30, 2021 Initial ECG Impression Time: 22:21 Initial ECG Rate: 87 Comment Sinus rhythm with left atrial enlargement. Normal axis. No evidence of ST elevation [place]. Similar to previous of 10/30/2021 and 10/08/2021. Interpreted by me. Diagnostic Imaging Diagonstic Imaging: Xray Plain Films/CT/US/NM/MRI: chest Comments [facility]. [place], [place] NAME: WAN DA SILVA [facility] REC#: [id number] PT STATUS: REG ER : 1975 PHYSICIAN: IMER HELLER MD ADMIT DATE: 10/30/21/ER Draft Date of Exam:10/30/21 CHEST 1 VIEW, AP/PA ONLY INDICATION: Chest pain. COMPARISON: 10/30/2021. FINDINGS: Single frontal view of the chest demonstrates normal heart size and pulmonary vascularity. The lungs are well aerated and clear. No large pleural effusion or pneumothorax is seen. The visualized osseous structures show no acute abnormality. Sternotomy wires are noted. IMPRESSION: No acute cardiopulmonary process. Dictated on workstation # [id number] Dict: 10/30/21 2256 Trans: 10/30/21 2308 [facility] [id number] Interpreted by: JAYSON DANIELS MD Electronically signed by: Departure Impression Primary Impression: Epigastric abdominal pain Additional Impression: Chest pain Qualified Codes: R07.9 - Chest pain, unspecified Disposition: HOME, SELF-CARE Condition: Improved Departure-Patient Inst. Decision time for Depature: 00:00 Referrals: EDWAR LOBO DO (PCP/Family) Primary Care Physician Patient Instructions: Severe Abdominal Pain, Adult (DC), Chest Pain (DC) Add. Discharge Instructions: All discharge instructions reviewed with patient and/or family. Voiced understanding. Continue home medications as previously prescribed. Stick with light diet over the next few days and then advance as tolerated. It is very important that you carefully monitor and control your blood sugars as this will increase your likelihood for abdominal pain as well as injury to other organs such as heart, kidneys, eyes and vessels. Follow-up with your doctor this week for recheck and further evaluation as needed. Return for worse pain, fever, vomiting, breathing problems, chest pain, weakness, sweating or other concerns as needed. IMER HELLER MD Oct 30, 2021 22:37
[2021-10-30 22:43] LABS: BASOPHILS # (AUTO) 0.1 10^3/uL (0.0-0.1); BASOPHILS % (AUTO) 1 % (0-10); EOSINOPHILS # (AUTO) 0.3 10^3/uL (0.0-0.3); EOSINOPHILS % (AUTO) 4 % (0-10); HEMATOCRIT 40 % (35-52); HEMOGLOBIN 13.8 g/dL (11.5-16.0); LYMPHOCYTES # (AUTO) 3.8 10^3/uL (1.0-4.0); LYMPHOCYTES % (AUTO) 52 % (12-44); MEAN CORPUSCULAR HEMOGLOBIN 32 pg (25-34); MEAN CORPUSCULAR HGB CONC 34 g/dL (32-36); MEAN CORPUSCULAR VOLUME 94 fL (80-99); MEAN PLATELET VOLUME 10.2 fL (9.0-12.2); MONOCYTES # (AUTO) 0.6 10^3/uL (0.0-1.0); MONOCYTES % (AUTO) 8 % (0-12); NEUTROPHILS # (AUTO) 2.5 10^3/uL (1.8-7.8); NEUTROPHILS % (AUTO) 35 % (42-75); PLATELET COUNT 295 10^3/uL (130-400); WHITE BLOOD COUNT 7.2 10^3/uL (4.3-11.0)
[2021-10-30 22:49] LABS: INR 0.9 (0.8-1.4); PROTHROMBIN TIME PATIENT 12.4 SEC (12.2-14.7)
[2021-10-30 22:59] LABS: ALBUMIN 3.8 GM/DL (3.2-4.5); BILIRUBIN,TOTAL 0.7 MG/DL (0.1-1.0); CALCIUM 9.2 MG/DL (8.5-10.1); CREATININE SERUM 1.03 MG/DL (0.60-1.30); POTASSIUM 4.3 MMOL/L (3.6-5.0); TOTAL PROTEIN 6.6 GM/DL (6.4-8.2)
--- NOTE | 2021-10-30 23:09 | Diagnostic Imaging Report ---
INDICATION: Chest pain. COMPARISON: 10/30/2021. FINDINGS: Single frontal view of the chest demonstrates normal heart size and pulmonary vascularity. The lungs are well aerated and clear. No large pleural effusion or pneumothorax is seen. The visualized osseous structures show no acute abnormality. Sternotomy wires are noted. IMPRESSION: No acute cardiopulmonary process. Dictated by: Dictated on workstation # [id number]
[2021-10-31] MEDS ORDERED: HYDROcodone/APAP 5 MG/325 MG (LORTAB) TAB PO ONE
[2021-10-31 00:06] VITALS: BP 128/74
== END 2021-10-31 00:12 | disposition home or self-care (01) ==
LOC: EDUNIT# 22:18 → ER 22:19
DX: R10.13 Epigastric pain (principal); R07.9 Chest pain, unspecified; Z87.891 Personal history of nicotine dependence
CPT/HCPCS: 36415; 71045; 80053; 83690; 83735; 83874; 84484; 85025; 85379; 85610; 85730; 93005; 93041

== ENCOUNTER 2021-11-13 19:20 | Emergency (ER) | payer MEDICARE, MEDICAID ==
[~2021-11-13] VITALS: Ht 172 cm; Wt 100.0 kg
--- NOTE | 2021-11-13 20:58 | Diagnostic Imaging Report ---
CLINICAL HISTORY: Left knee pain. COMPARISON: 06/04/2021. TECHNIQUE: 3 views of the left knee. FINDINGS: There is no acute fracture or dislocation of the left knee. Alignment is anatomic. The imaged joint spaces are preserved. Small joint effusion is seen in the left knee. IMPRESSION: No acute fracture or dislocation in the left knee. Small left knee joint effusion. Dictated by: Dictated on workstation # [id number]
--- NOTE | 2021-11-13 21:00 | Diagnostic Imaging Report ---
CLINICAL HISTORY: Fall. Left ankle pain. COMPARISON: 02/14/2021. TECHNIQUE: 3 views of the left ankle. FINDINGS: Small osseous fragment is seen at the distal aspect of the left fibula. Alignment is anatomic. The imaged joint spaces are preserved. IMPRESSION: Possible small avulsion fracture involving the lateral malleolus. Alternatively, this may represent chronic findings. Recommend correlation with point tenderness and patient symptoms and follow-up as indicated. No malalignment of the left ankle. Dictated by: Dictated on workstation # [id number]
--- NOTE | 2021-11-13 21:04 | ED Lower Extremity ---
General Chief Complaint: Lower Extremity Stated Complaint: TWISTED ANKLE Nursing Triage Note: Patient states approximately 1 hour prior to arrival the patient fell she states pain to her left knee and left ankle. History of Present Illness Date Seen by Provider: Nov 13, 2021 Time Seen by Provider: 20:35 Onset: this afternoon Pain/Injury Location: right knee, right ankle Method of Injury: twisted Allergies and Home Medications Allergies Coded Allergies: Penicillins (Verified Allergy, Unknown, 05/16/21) Sulfa (Sulfonamide Antibiotics) (Verified Allergy, Unknown, 05/16/21) naproxen (Verified Allergy, Unknown, HIVES, NAUSEA--can take ibuprofen, 05/16/21) Patient Home Medication List Home Medication List Reviewed: Yes Acetaminophen (Tylenol Extra Strength) 500 Mg Tablet, 500 MG PO Q8H PRN for PAIN-MILD (1-4), (Reported) Entered as Reported by: DOLORES LARIOS on 08/15/21 1601 Aripiprazole (Abilify) 15 Mg Tablet, 7.5 MG PO DAILY, (Reported) Entered as Reported by: SONJA OH on 06/27/21 1036 Aspirin (Aspirin EC) 81 Mg Tablet.dr, 81 MG PO DAILY, (Reported) Entered as Reported by: SONJA OH on 05/24/21 0959 Atorvastatin Calcium (Atorvastatin Calcium) 80 Mg Tablet, 80 MG PO HS Prescribed by: RAINE HERNANDEZ on 08/16/21 1213 Clopidogrel Bisulfate (Plavix) 75 Mg Tablet, 75 MG PO DAILY, (Reported) Entered as Reported by: SONJA OH on 05/26/21 1059 Eszopiclone (Lunesta) 2 Mg Tablet, 2 MG PO HS, (Reported) Entered as Reported by: DOLORES LARIOS on 08/15/21 1555 Hydroxyzine HCl (Hydroxyzine HCl) 25 Mg Tablet, 25 MG PO BID PRN for ANXIETY, (Reported) Entered as Reported by: SONJA OH on 06/27/21 1036 Metformin HCl (Metformin HCl) 500 Mg Tablet, 500 MG PO DAILY, (Reported) Entered as Reported by: DOLORES LARIOS on 08/15/21 1552 Metoprolol Tartrate (Metoprolol Tartrate) 25 Mg Tablet, 12.5 MG PO BID, (Reported) Entered as Reported by: SONJA OH on 05/26/21 1059 Nitroglycerin (Nitroglycerin) 0.3 Mg Tab.subl, 0.3 MG SL Q5MIN PRN X3 PRN for CHEST PAIN (ANGINA) Prescribed by: RAINE HERNANDEZ on 10/09/21 1302 Ondansetron (Ondansetron Odt) 4 Mg Tab.rapdis, 4 MG PO Q6H PRN for NAUSEA/VOMITING Prescribed by: MARGARET HDEZ on 09/27/21 2231 Pantoprazole Sodium (Protonix) 40 Mg Tablet.dr, 40 MG PO BID Prescribed by: RAINE HERNANDEZ on 10/09/21 1303 Ranolazine (Ranexa) 500 Mg Tab.er.12h, 1,000 MG PO BID Prescribed by: RAINE HERNANDEZ on 08/16/21 1213 Sertraline HCl (Sertraline HCl) 100 Mg Tablet, 100 MG PO HS, (Reported) Entered as Reported by: SONJA OH on 06/27/21 1036 Review of Systems Constitutional: no symptoms reported Musculoskeletal: see HPI, joint pain (Right knee and right ankle) All Other Systems Reviewed Negative Unless Noted: Yes Past Aghrawb-Keiwhj-Tlvwtk Hx Patient Social History Tobacco Use?: Yes Tobacco type used: Cigarettes Smoking Status: Current Everyday Smoker Substance use?: No Alcohol Use?: No Immunizations Up To Date Tetanus Booster (TDap): More than 5yrs First/Initial COVID19 Vaccinat: not vaccinated Second COVID19 Vaccination Mark: not vaccinated Third COVID19 Vaccination Date: not vaccinated Seasonal Allergies Seasonal Allergies: No Past Medical History Surgery/Hospitalization HX: CABG, CARDIAC STENTS, COPD, ASTHMA, HTN, HIGH CHOLESTEROL, GERD, ANXIETY, DEPRESSION 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) Sexually Transmitted Disease: Yes (HERPES) Genitourinary: No Gastrointestinal: Yes (S/P FABRICE FUNDOPLICATION) Gastroesophageal Reflux, Esophagitis, Hiatal Hernia, Gall Bladder Disease Musculoskeletal: Yes Arthritis Endocrine: Yes Hypothyroidsim, Diabetes, Non-Insulin dep HEENT: Yes Chronic Ear Infection Hearing Impairment: Hard of Hearing Cancer: Yes Cervical Did You Recieve Any Treatments: Yes What Type of Treatment Did You: Surgical Intervention Psychosocial: Yes Sleep Difficulties, Anxiety, Suicide Attempts, Depression Integumentary: No Blood Disorders: No Adverse Reaction/Blood Tranf: No Family Medical History Reviewed Nursing Family Hx No Pertinent Family Hx SOCIAL HISTORY: -SMOKES AT LEAST 1 PPD -ETOH--DENIES USE -DENIES DRUG USE ADDITIONAL PAST MEDICAL AND PROCEDURAL HISTORY: -FABRICE FUNDOPLICATION -CHOLECYSTECTOMY -TONSILLECTOMY/ADENOIDECTOMY -TRACHEOSTOMY/LATER REMOVAL -PT HAD NSTEMI AND WAS ADMITTED 04/22/20-04/24/20, HAD CARDIAC CATH 04/23/20 AND HAD STENT X 1 TO RCA -PT HAS PREVIOUSLY HAD A CABG IN 2009, MULTIPLE STENTS TO RCA, AND STENT TO CIRCUMFLEX IN THE PAST. CARDIAC CATH 05/24/[address] ROBLES: CONCLUSIONS: 1. Coronary artery disease as detailed above. The left anterior descending and left circumflex arteries have patent stents. An obtuse marginal branch of the left circumflex has a patent aortocoronary graft, this graft had 70% ostial stenosis and was successfully stented with Radha 2.5 x 18 mm stent, deployed at 20 atmospheres. The right coronary artery had 90% proximal stenosis, which went to 50% stenosis following balloon angioplasty. The mid and distal right coronary artery have in-stent occlusion. This is a very long segment of occlusion and attempts at percutaneous intervention to this portion of the vessel were unsuccessful. 2. Mild elevation of left ventricular end-diastolic pressure. DISCUSSION AND RECOMMENDATIONS: Risk factor modification has been advised. Dual antiplatelet therapy is being continued. Because of low blood pressure, she is not a suitable candidate for beta blockers or TOLU inhibitors or angiotensin receptor blockers. Statin therapy is being continued. -CARDIAC CATH 08/14/[address] ALAN: IMPRESSION: 1. Normal central aortic pressure with elevated left ventricular end-diastolic pressure. 2. Patent stent in the mid left anterior descending coronary artery. 3. Total occlusion of the mid right coronary artery within previously placed stents. This is known to be a chronic total occlusion. 4. The left internal mammary artery graft to left anterior descending coronary artery is known to be atretic and was not studied during this procedure. 5. Patent saphenous vein graft to the obtuse marginal branch with a patent stent in the ostium. 6. The patient is known to have normal left ventricular systolic function with an estimated ejection fraction of 60-65% by echocardiogram performed earlier today. 7. The patient may be having angina from small vessel disease. Physical Exam Vital Signs Vital Signs - First Documented 11/13/21 20:29 Temp 36.8 Pulse 94 Resp 18 B/P (MAP) 120/87 (98) Pulse Ox 97 O2 Delivery Room Air Capillary Refill : Less Than 3 Seconds Height, Weight, BMI Height: 5'8.00" Weight: 189lbs. 0.0oz. 85.214235mv; 33.00 BMI Method:Stated General Appearance: WD/WN, no apparent distress Cardiovascular: normal peripheral pulses, regular rate, rhythm, no edema Respiratory: chest non-tender, lungs clear, normal breath sounds Knees: left knee normal inspection, left knee pain, left knee soft tissue tenderness, left knee swelling Ankles: left ankle normal inspection, left ankle normal range of motion, left ankle pain, left ankle soft tissue tenderness Neurologic/Psychiatric: no motor/sensory deficits, alert, normal mood/affect, oriented x 3 Skin: normal color, warm/dry Progress/Results/Core Measures Results/Orders My Orders Orders - MELANIE SAEZ Knee, Left, 3 Views (11/13/21 20:42) Ankle, Left, 3 Views (11/13/21 20:42) Vital Signs/I&O 11/13/21 20:29 Temp 36.8 Pulse 94 Resp 18 B/P (MAP) 120/87 (98) Pulse Ox 97 O2 Delivery Room Air Blood Pressure Mean: 98 Diagnostic Imaging Diagonstic Imaging: Xray Plain Films/CT/US/NM/MRI: other (knee) Comments NAME: AVINASHWAN L MED REC#: [id number] PT STATUS: REG ER : 1975 PHYSICIAN: MELANIE SAEZ ADMIT DATE: 11/13/21/ER Signed Date of Exam:11/13/21 KNEE, LEFT, 3 VIEWS CLINICAL HISTORY: Left knee pain. COMPARISON: 06/04/2021. TECHNIQUE: 3 views of the left knee. FINDINGS: There is no acute fracture or dislocation of the left knee. Alignment is anatomic. The imaged joint spaces are preserved. Small joint effusion is seen in the left knee. IMPRESSION: No acute fracture or dislocation in the left knee. Small left knee joint effusion. Dictated by: Dictated on workstation # [id number] Dict: 11/13/212054 Trans: 11/13/212057 [facility] [id number] Interpreted by: MEGAN MITCHELL DO Electronically signed by: MEGAN MITCHELL DO 11/13/212057 Reviewed: Reviewed by Me Diagonstic Imaging: Xray Plain Films/CT/US/NM/MRI: ankle Comments NAME: WAN DA SILVA MED REC#: [id number] PT STATUS: REG ER : 1975 PHYSICIAN: MELANIE SAEZ ADMIT DATE: 11/13/21/ER Signed Date of Exam:11/13/21 ANKLE, LEFT, 3 VIEWS CLINICAL HISTORY: Fall. Left ankle pain. COMPARISON: 02/14/2021. TECHNIQUE: 3 views of the left ankle. FINDINGS: Small osseous fragment is seen at the distal aspect of the left fibula. Alignment is anatomic. The imaged joint spaces are preserved. IMPRESSION: Possible small avulsion fracture involving the lateral malleolus. Alternatively, this may represent chronic findings. Recommend correlation with point tenderness and patient symptoms and follow-up as indicated. No malalignment of the left ankle. Dictated by: Dictated on workstation # [id number] Dict: 11/13/212055 Trans: 11/13/212099 [facility] [id number] Interpreted by: MEGAN MITCHELL DO Electronically signed by: MEGAN MITCHELL DO 11/13/212099 Reviewed: Reviewed by Me Departure Impression Primary Impression: Knee pain Qualified Codes: M25.562 - Pain in left knee Additional Impressions: Sprain and strain of ankle Fall Qualified Codes: W19.XXXA - Unspecified fall, initial encounter Disposition: HOME, SELF-CARE Condition: Improved Departure-Patient Inst. Decision time for Depature: 21:00 Referrals: EDWAR LOBO DO (PCP/Family) Primary Care Physician Patient Instructions: Ankle Sprain (DC), Knee Pain (DC) Add. Discharge Instructions: Ice and elevate left knee for 20 minutes every 2 hours. Use an Tolu wrap to your left knee and left ankle as needed. Use crutches weightbearing as tolerated on the left side. Alternate between Tylenol 650 mg and ibuprofen 600 mg every 4 hours for pain. Follow-up with Dr. Lobo if your symptoms are not improving or worsen. Return to the emergency department for new, urgent healthcare needs. All discharge instructions reviewed with patient and/or family. Voiced understanding. MELANIE SAEZ Nov 13, 2021 21:04
[2021-11-13 21:16] VITALS: BP 120/87
== END 2021-11-13 21:16 | disposition home or self-care (01) ==
LOC: EDUNIT# 19:20 → ER 19:23
DX: S93.402A Sprain of unspecified ligament of left ankle, initial encounter (principal); M25.562 Pain in left knee; F17.210 Nicotine dependence, cigarettes, uncomplicated; X50.1XXA Overexertion from prolonged static or awkward postures, initial encounter
CPT/HCPCS: 73562; 73610

== ENCOUNTER 2021-12-15 22:09 | Observation (INO) | payer MEDICARE, MEDICAID ==
[~2021-12-15] VITALS: Ht 172.2 cm; Wt 112.9 kg
--- NOTE | 2021-12-15 22:50 | ED Chest Pain ---
General Chief Complaint: Chest Pain Stated Complaint: CHEST PAIN Source: patient Exam Limitations: no limitations (MARGARET HDEZ) History of Present Illness Date Seen by Provider: Dec 15, 2021 Time Seen by Provider: 22:33 Initial Comments Multiple cardiac catheterizations with the last being in July showing a patent stent in the mid LAD and total occlusion of the right mid coronary artery with an old stent known to be total occlusion chronically. LOPEZ to the LAD is atretic and known to be severely diseased. Patent vein graft to the obtuse marginal branches with a patent stent in the vein graft. History of angina and small vessel disease. History of COPD. Hyperlipidemia, diabetes, obesity, hypothyroidism, history of CABG in 2009. (MARGARET HDEZ) Time Seen by Provider: 22:45 Initial Comments Avinash is a 46 y/o F w/PMHx of CAD, DM, HLD, GERD, CABG and multiple stents who presents with chest pain onset 11 hours ago. Patient describes pain as an intermittent squeezing felt around the sternum with radiation down the L arm, 9/10 in intensity, no aggravating or alleviating factors. Pain is associated with mild SOB, nausea, lightheadeness and dizziness.Denies vomiting, fever, chills and diaphoresis. Patient states she has been worked up for similar episodes in the past with no definitive diagnosis given to her, and that her previous episodes typically end on their own. Patient took her daily Aspirin at 0900, as well as Rolaids and a NTG prior to arrival with no significant relief. (JAMILA FRANCIS MED STUDENT) Allergies and Home Medications Allergies Coded Allergies: Penicillins (Verified Allergy, Unknown, 05/16/21) Sulfa (Sulfonamide Antibiotics) (Verified Allergy, Unknown, 05/16/21) naproxen (Verified Allergy, Unknown, HIVES, NAUSEA--can take ibuprofen, 05/16/21) Patient Home Medication List Home Medication List Reviewed: Yes (MARGARET HDEZ) Acetaminophen (Tylenol Extra Strength) 500 Mg Tablet, 500 MG PO Q8H PRN for PAIN-MILD (1-4), (Reported) Entered as Reported by: DOLORES LARIOS on 08/15/21 1601 Aripiprazole (Abilify) 15 Mg Tablet, 7.5 MG PO DAILY, (Reported) Entered as Reported by: SONJA OH on 06/27/21 1036 Aspirin (Aspirin EC) 81 Mg Tablet.dr, 81 MG PO DAILY, (Reported) Entered as Reported by: SONJA OH on 05/24/21 0959 Atorvastatin Calcium (Atorvastatin Calcium) 80 Mg Tablet, 80 MG PO HS Prescribed by: RAINE HERNANDEZ on 08/16/21 1213 Clopidogrel Bisulfate (Plavix) 75 Mg Tablet, 75 MG PO DAILY, (Reported) Entered as Reported by: SONJA OH on 05/26/21 1059 Eszopiclone (Lunesta) 2 Mg Tablet, 2 MG PO HS, (Reported) Entered as Reported by: DOLORES LARIOS on 08/15/21 1555 Hydroxyzine HCl (Hydroxyzine HCl) 25 Mg Tablet, 25 MG PO BID PRN for ANXIETY, (Reported) Entered as Reported by: SONJA OH on 06/27/21 1036 Metformin HCl (Metformin HCl) 500 Mg Tablet, 500 MG PO DAILY, (Reported) Entered as Reported by: DOLORES LARIOS on 08/15/21 1552 Metoprolol Tartrate (Metoprolol Tartrate) 25 Mg Tablet, 12.5 MG PO BID, (Reported) Entered as Reported by: SONJA OH on 05/26/21 1059 Nitroglycerin (Nitroglycerin) 0.3 Mg Tab.subl, 0.3 MG SL Q5MIN PRN X3 PRN for CHEST PAIN (ANGINA) Prescribed by: RAINE HERNANDEZ on 10/09/21 1302 Ondansetron (Ondansetron Odt) 4 Mg Tab.rapdis, 4 MG PO Q6H PRN for NAUSEA/VOMITING Prescribed by: MARGARET HDEZ on 09/27/21 2231 Pantoprazole Sodium (Protonix) 40 Mg Tablet.dr, 40 MG PO BID Prescribed by: RAINE HERNANDEZ on 12/16/21 1005 Ranolazine (Ranexa) 500 Mg Tab.er.12h, 1,000 MG PO BID Prescribed by: RAINE HERNANDEZ on 08/16/21 1213 Sertraline HCl (Sertraline HCl) 100 Mg Tablet, 100 MG PO HS, (Reported) Entered as Reported by: SONJA OH on 06/27/21 1036 Review of Systems Review of Systems Constitutional: No diaphoresis; dizziness EENTM: No Blurred Vision, No Double Vision Respiratory: Denies Cough; Shortness of Air Cardiovascular: Chest Pain, Lightheadedness Gastrointestinal: Denies Abdominal Pain, Denies Nausea, Denies Vomiting Musculoskeletal: No back pain, No joint swelling Skin: No dryness, No rash Psychiatric/Neurological: Denies Tingling, Denies Tremors (JAMILA FRANCIS MED STUDENT) All Other Systems Reviewed Negative Unless Noted: Yes (MARGARET HDEZ) Past Pwukyoj-Fpfuqw-Iueheo Hx Patient Social History Tobacco Use?: Yes Tobacco type used: Cigarettes Smoking Status: Current Everyday Smoker (MARGARET HDEZ) Immunizations Up To Date Tetanus Booster (TDap): More than 5yrs Influenza Vaccine Up-to-Date: Yes; Up-to-Date First/Initial COVID19 Vaccinat: not vaccinated Second COVID19 Vaccination Mark: not vaccinated Third COVID19 Vaccination Date: not vaccinated (MARGARET HDEZ) Seasonal Allergies Seasonal Allergies: No (MARGARET HDEZ) Past Medical History Surgery/Hospitalization HX: CABG, CARDIAC STENTS, COPD, ASTHMA, HTN, HIGH CHOLESTEROL, GERD, ANXIETY, DEPRESSION 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) Sexually Transmitted Disease: Yes (HERPES) Genitourinary: No Gastrointestinal: Yes (S/P FABRICE FUNDOPLICATION) Gastroesophageal Reflux, Esophagitis, Hiatal Hernia, Gall Bladder Disease Musculoskeletal: Yes Arthritis Endocrine: Yes Hypothyroidsim, Diabetes, Non-Insulin dep HEENT: Yes Chronic Ear Infection Hearing Impairment: Hard of Hearing Cancer: Yes Cervical Did You Recieve Any Treatments: Yes What Type of Treatment Did You: Surgical Intervention Psychosocial: Yes Sleep Difficulties, Anxiety, Suicide Attempts, Depression Integumentary: No Blood Disorders: No Adverse Reaction/Blood Tranf: No (MARGARET HDEZ) Family Medical History No Pertinent Family Hx SOCIAL HISTORY: -SMOKES AT LEAST 1 PPD -ETOH--DENIES USE -DENIES DRUG USE ADDITIONAL PAST MEDICAL AND PROCEDURAL HISTORY: -FABRICE FUNDOPLICATION -CHOLECYSTECTOMY -TONSILLECTOMY/ADENOIDECTOMY -TRACHEOSTOMY/LATER REMOVAL -PT HAD NSTEMI AND WAS ADMITTED 04/22/20-04/24/20, HAD CARDIAC CATH 04/23/20 AND HAD STENT X 1 TO RCA -PT HAS PREVIOUSLY HAD A CABG IN 2009, MULTIPLE STENTS TO RCA, AND STENT TO CIRCUMFLEX IN THE PAST. CARDIAC CATH 05/24/[address] AGUILAR: CONCLUSIONS: 1. Coronary artery disease as detailed above. The left anterior descending and left circumflex arteries have patent stents. An obtuse marginal branch of the left circumflex has a patent aortocoronary graft, this graft had 70% ostial stenosis and was successfully stented with Radha 2.5 x 18 mm stent, deployed at 20 atmospheres. The right coronary artery had 90% proximal stenosis, which went to 50% stenosis following balloon angioplasty. The mid and distal right coronary artery have in-stent occlusion. This is a very long segment of occlusion and attempts at percutaneous intervention to this portion of the vessel were unsuccessful. 2. Mild elevation of left ventricular end-diastolic pressure. DISCUSSION AND RECOMMENDATIONS: Risk factor modification has been advised. Dual antiplatelet therapy is being continued. Because of low blood pressure, she is not a suitable candidate for beta blockers or MORRO inhibitors or angiotensin receptor blockers. Statin therapy is being continued. -CARDIAC CATH 08/14/[address] ALAN: IMPRESSION: 1. Normal central aortic pressure with elevated left ventricular end-diastolic pressure. 2. Patent stent in the mid left anterior descending coronary artery. 3. Total occlusion of the mid right coronary artery within previously placed stents. This is known to be a chronic total occlusion. 4. The left internal mammary artery graft to left anterior descending coronary artery is known to be atretic and was not studied during this procedure. 5. Patent saphenous vein graft to the obtuse marginal branch with a patent stent in the ostium. 6. The patient is known to have normal left ventricular systolic function with an estimated ejection fraction of 60-65% by echocardiogram performed earlier today. 7. The patient may be having angina from small vessel disease. (MARGARET HDEZ) Physical Exam Vital Signs Vital Signs - First Documented 12/15/21 22:15 Temp 36.0 Pulse 95 Resp 16 B/P (MAP) 128/82 (97) Pulse Ox 98 O2 Delivery Room Air (TITO,JAMILA MED STUDENT) Vital Signs Capillary Refill : Less Than 3 Seconds (MARGARET HDEZ) Height, Weight, BMI Height: 5'8.00" Weight: 189lbs. 0.0oz. 85.840881tc; 33.00 BMI Method:Stated Respiratory: Wheezing (rare, expiratory) (MARGARET HDEZ) General Appearance: WD/WN, Obese HEENT: PERRL/EOMI, Pharynx Normal, Moist Mucous Membranes Neck: Normal Inspection, Non Tender Respiratory: Chest Non Tender, Rhonci (expiratory), Wheezing (rare, expiratory) Cardiovascular: Regular Rate, Rhythm, Normal Peripheral Pulses Gastrointestinal: Normal Bowel Sounds, Non Tender Extremity: Normal Capillary Refill, Normal Inspection, Normal Range of Motion, No Calf Tenderness Neurologic/Psychiatric: Alert, Normal Mood/Affect Skin: No Ecchymosis, No Rash (JAMILA FRANCIS MED STUDENT) Progress/Results/Core Measures Results/Orders Vital Signs/I&O 12/15/21 22:15 Temp 36.0 Pulse 95 Resp 16 B/P (MAP) 128/82 (97) Pulse Ox 98 O2 Delivery Room Air (JAMILA FRANCIS MED STUDENT) Progress Progress Note #1: Time: 23:29 Progress Note I attest that I saw this patient alongside the medical student and agree with his documented history, physical exam and review of systems except as otherwise noted. Patient with a significant coronary history with 11 hours of chest pain arrives to the ER and has history of stable chronic angina. We will start with a GI cocktail and if that does not alleviate her symptoms and we can recommend a small amount of morphine, consult with cardiology and Go from there. Patient is already on ranolazine. She seems to be resistant to nitroglycerin. She does have some crackles so we will get a chest x-ray and labs to rule out pneumonia but she is not having a new, worsening cough or fever. Bronchospasm such as from COPD exacerbation could be contributing to her chest discomfort which seems to be substernal midline and following the course of the esophagus. If her initial troponins okay then an DuoNeb might be helpful. Progress Note #2: Time: 02:05 Progress Note Despite a couple rounds a total of 6 mg of morphine patient states she has some improvement in her pain but still rates it as an 8 out of 10 as she lies comfortably on the bed. She says earlier she was clutching her chest because it was hurting so bad. Plan to do an observation and put her in front of the soundscriber mechanic given her significant coronary disease history (MARGARET HDEZ) Initial ECG Impression Date: Dec 15, 2021 Initial ECG Impression Time: 22:25 Initial ECG Rate: 91 Initial ECG Rhythm: Normal Sinus Initial ECG Intervals: Normal Initial ECG Impression: Normal Comment Normal sinus rhythm without clinically relevant ST changes. (MARGARET HDEZ) Diagnostic Imaging Diagonstic Imaging: Xray Plain Films/CT/US/NM/MRI: chest Comments [facility], [place] NAME: AVINASHWAN L [facility] REC#: [id number] PT STATUS: ADM Avril : 1975 PHYSICIAN: MARGARET HDEZ MD ADMIT DATE: 12/16/21/CSD Signed Date of Exam:12/15/21 CHEST 1 VIEW, AP/PA ONLY INDICATION: Chest pain EXAMINATION: Chest 12/15/2021 COMPARISON: 10/30/2021 FINDINGS: There are sternotomy wires. Heart and pulmonary vasculature normal. Lungs and pleural spaces clear. IMPRESSION: No acute process Dictated by: Dictated on workstation # [id number] Dict: 12/16/21 0617 Trans: 12/16/21 1020 [id number] Interpreted by: JAZMIN MORRISON MD Electronically signed by: JAZMIN MORRISON MD 12/16/21 1020 Reviewed: Reviewed by Me Diagonstic Imaging: CT Plain Films/CT/US/NM/MRI: chest (angio) Comments [facility], [place], [place] NAME: DELORIS DA SILVASOLEDAD Mcclure [facility] REC#: [id number] PT STATUS: ADM Avril : 1975 PHYSICIAN: MARGARET HDEZ MD ADMIT DATE: 12/16/21/CSD Signed Date of Exam:12/16/21 CT ANGIO CHEST W PROCEDURE: CT angiography of the chest with contrast. TECHNIQUE: Multiple contiguous axial images were obtained through the chest after uneventful bolus administration of intravenous contrast. 3D reconstructed CTA MIP acquisitions were also performed. Auto Exposure Controls were utilized during the CT exam to meet ALARA standards for radiation dose reduction. INDICATION: Chest pain Lungs are clear. There are no effusions or pneumothoraces. There is a sliding hiatal hernia. There are postoperative changes from CABG surgery. There is no aortic aneurysm or dissection. There are no pulmonary emboli. There is no right ventricular strain. There is no hilar or mediastinal lymphadenopathy. IMPRESSION: Postsurgical changes. Hiatal hernia. No acute abnormality seen I agree with preliminary interpretation. Dictated by: Dictated on workstation # [id number] Dict: 12/16/2146 Trans: 12/16/21647 TCB [id number] Interpreted by: IMER KIMBALL MD Electronically signed by: IMER KIMBALL MD 12/16/21647 Reviewed: Reviewed by Me (MARGARET HDEZ) Departure Communication (Admissions) Time/Spoke to Admitting Phy: 01:55 Dr. Clemens agrees observe the patient with cardiology consult. Time/Spoke to Consulting Phy: 01:55 Dr. Macias agrees to consult on the case and would like a consult put in for Dr. Aguilar in the morning (MARGARET HDEZ) Impression Primary Impression: Chest pain Qualified Codes: R07.9 - Chest pain, unspecified Additional Impression: Coronary artery disease with unstable angina pectoris Qualified Codes: I25.110 - Atherosclerotic heart disease of [place] coronary artery with unstable angina pectoris Disposition: ADMITTED INPATIENT Condition: Stable Admissions Decision to Admit Reason: Admit from ER (General) Decision to Admit/Date: Dec 16, 2021 Time/Decision to Admit Time: 01:55 (MARGARET HDEZ) Departure-Patient Inst. Referrals: EDWAR LOBO DO (PCP/Family) Primary Care Physician Scripts Pantoprazole Sodium (Protonix) 40 Mg Tablet. 40 MG PO BID for 60 Days, #120 TAB 0 Refills Prov: RAINE HERNANDEZ MD 12/16/21 MARGARET HDEZ Dec 15, 2021 22:50 JAMILA FRANCIS MED STUDENT Dec 15, 2021 23:23
[2021-12-15] MEDS ORDERED: ASPIRIN 81 MG CHEW (CHILDREN'S ASA) PO ONE (23:15)
[2021-12-15] MEDS ORDERED: FAMOTIDINE 20MG/2ML IV (PEPCID) IV STA (23:21)
[2021-12-15 23:24] LABS: BASOPHILS # (AUTO) 0.1 10^3/uL (0.0-0.1); BASOPHILS % (AUTO) 1 % (0-10); EOSINOPHILS # (AUTO) 0.9 10^3/uL (0.0-0.3); EOSINOPHILS % (AUTO) 10 % (0-10); HEMATOCRIT 39 % (35-52); HEMOGLOBIN 13.5 g/dL (11.5-16.0); LYMPHOCYTES # (AUTO) 2.9 10^3/uL (1.0-4.0); LYMPHOCYTES % (AUTO) 33 % (12-44); MEAN CORPUSCULAR HEMOGLOBIN 33 pg (25-34); MEAN CORPUSCULAR HGB CONC 35 g/dL (32-36); MEAN CORPUSCULAR VOLUME 94 fL (80-99); MEAN PLATELET VOLUME 10.9 fL (9.0-12.2); MONOCYTES # (AUTO) 0.5 10^3/uL (0.0-1.0); MONOCYTES % (AUTO) 6 % (0-12); NEUTROPHILS # (AUTO) 4.3 10^3/uL (1.8-7.8); NEUTROPHILS % (AUTO) 50 % (42-75); PLATELET COUNT 349 10^3/uL (130-400); WHITE BLOOD COUNT 8.8 10^3/uL (4.3-11.0)
[2021-12-15 23:28] LABS: ALBUMIN 3.9 GM/DL (3.2-4.5)
[2021-12-15 23:29] LABS: CALCIUM 9.2 MG/DL (8.5-10.1)
[2021-12-15 23:30] LABS: INR 0.9 (0.8-1.4); PROTHROMBIN TIME PATIENT 11.9 SEC (12.2-14.7)
[2021-12-15] MEDS ORDERED: LIDOCAINE 2% VISCOUS 15 ML UDC PO ONE (23:30)
[2021-12-15] MEDS ORDERED: ANTACID SUSP 30 ML UDC (MYLANTA) PO ONE (23:30)
[2021-12-15 23:31] LABS: TOTAL PROTEIN 6.8 GM/DL (6.4-8.2)
[2021-12-15 23:32] LABS: BILIRUBIN,TOTAL 0.4 MG/DL (0.1-1.0)
[2021-12-15 23:34] LABS: CREATININE SERUM 0.89 MG/DL (0.60-1.30)
[2021-12-15 23:37] LABS: MAGNESIUM 1.8 MG/DL (1.6-2.4)
[2021-12-16] VITALS (8 sets, daily range): BP systolic 107–132; BP diastolic 37–85
[2021-12-16] MEDS ORDERED: morphine INJ 10 MG/ML 1ML (SYR OR VIAL) IVP STA ×2 (00:20→01:12)
[2021-12-16] MEDS ORDERED: ONDANSETRON 4 MG/2 ML (SDV) Z0FRAN IV PRN (03:30)
[2021-12-16] MEDS ORDERED: ACETAMINOPHEN 325 MG TABLET PO PRN (03:30)
[2021-12-16] MEDS ORDERED: CATHETER FLUSH 10 ML SYR IVP PRN (03:45)
[2021-12-16] MEDS ORDERED: CALCIUM CARBONATE 500 MG (TUMS) TAB.CHEW PO PRN (03:45)
[2021-12-16] MEDS ORDERED: NITROGLYCERIN 0.4 MG SL TABS BTL 25'S SL PRN (03:45)
[2021-12-16] MEDS: morphine INJ 4 MG/ML 1 ML (VIAL/SYRINGE) IV PRN ×3 (03:50→08:31)
[2021-12-16 04:53] LABS: BASOPHILS # (AUTO) 0.1 10^3/uL (0.0-0.1); BASOPHILS % (AUTO) 1 % (0-10); EOSINOPHILS # (AUTO) 0.9 10^3/uL (0.0-0.3); EOSINOPHILS % (AUTO) 12 % (0-10); HEMATOCRIT 37 % (35-52); HEMOGLOBIN 12.6 g/dL (11.5-16.0); LYMPHOCYTES % (AUTO) 39 % (12-44); MEAN CORPUSCULAR HEMOGLOBIN 32 pg (25-34); MEAN CORPUSCULAR HGB CONC 34 g/dL (32-36); MEAN CORPUSCULAR VOLUME 94 fL (80-99); MEAN PLATELET VOLUME 10.4 fL (9.0-12.2); MONOCYTES # (AUTO) 0.5 10^3/uL (0.0-1.0); MONOCYTES % (AUTO) 6 % (0-12); NEUTROPHILS # (AUTO) 3.4 10^3/uL (1.8-7.8); NEUTROPHILS % (AUTO) 43 % (42-75); PLATELET COUNT 308 10^3/uL (130-400); WHITE BLOOD COUNT 7.9 10^3/uL (4.3-11.0)
[2021-12-16 05:12] LABS: CHLORIDE 105 MMOL/L (98-107); POTASSIUM 4.2 MMOL/L (3.6-5.0); SODIUM 138 MMOL/L (135-145)
[2021-12-16 05:13] LABS: CALCIUM 8.8 MG/DL (8.5-10.1)
[2021-12-16 05:14] LABS: GLUCOSE 169 MG/DL (70-105); TRIGLYCERIDES 262 MG/DL (<150); VLDL CHOLESTEROL 52 MG/DL (5-40)
[2021-12-16 05:15] LABS: CARBON DIOXIDE 19 MMOL/L (21-32)
[2021-12-16 05:18] LABS: CREATININE SERUM 0.78 MG/DL (0.60-1.30); GFR ESTIMATED 94
[2021-12-16 05:19] LABS: BUN/CREATININE RATIO 14; CHOLESTEROL 265 MG/DL (< 200)
[2021-12-16 05:20] LABS: HDL CHOLESTEROL 37 MG/DL (40-60)
[2021-12-16] MEDS: inSUlin ASPART (NovoLOG) 1 UNIT/0.01 ML (CHARGE PER UNIT) SC SCH ×2 (05:42→11:05)
[2021-12-16] MEDS ORDERED: CATHETER FLUSH 10 ML SYR IVP SCH (06:00)
--- NOTE | 2021-12-16 06:24 | Diagnostic Imaging Report ---
INDICATION: Chest pain EXAMINATION: Chest 12/15/2021 COMPARISON: 10/30/2021 FINDINGS: There are sternotomy wires. Heart and pulmonary vasculature normal. Lungs and pleural spaces clear. IMPRESSION: No acute process Dictated by: Dictated on workstation # [id number]
--- NOTE | 2021-12-16 06:50 | Diagnostic Imaging Report ---
PROCEDURE: CT angiography of the chest with contrast. TECHNIQUE: Multiple contiguous axial images were obtained through the chest after uneventful bolus administration of intravenous contrast. 3D reconstructed CTA MIP acquisitions were also performed. Auto Exposure Controls were utilized during the CT exam to meet ALARA standards for radiation dose reduction. INDICATION: Chest pain Lungs are clear. There are no effusions or pneumothoraces. There is a sliding hiatal hernia. There are postoperative changes from CABG surgery. There is no aortic aneurysm or dissection. There are no pulmonary emboli. There is no right ventricular strain. There is no hilar or mediastinal lymphadenopathy. IMPRESSION: Postsurgical changes. Hiatal hernia. No acute abnormality seen I agree with preliminary interpretation. Dictated by: Dictated on workstation # [id number]
--- NOTE | 2021-12-16 07:59 | Consultation-Cardiology ---
HPI-Cardiology Cardiology Consultation: Date of Consultation 12/16/21 Time Seen by a Provider: 08:10 Date of Admission 12-15-21 Attending Physician Raine Hernandez MD Admitting Physician Willem Chamorro DO Consulting Physician DAVID SALDIVAR HPI: Chief Complaint: Chest pain Ms. Da Silva is a 46 yr old female admitted to 507 from the ED with c/o CP. She reports yesterday after eating breakfast she developed mid-sternal chest pain which radiated up and down her sternum. The discomfort was a constant. It did not change with movement. She does report epigastric tenderness with palpation. She reports episodes of diaphoresis. She has chronic mild to mod BUTT. She reports nausea with the discomfort. She reports she has been compliant with her medication regimen. She states she received nitro sublingual in the ED without any change. She received Morphine IV in the ED which provided some relief, but not complete resolution. She continues to report mild chest discomfort this morning. She denies any LE swelling. She continues to smoke 1/2 PPD of cigs. She denies any street drug usage. Review of Systems-Cardiology Review of Systems Constitutional: No chills, No fever; malaise Eyes: No vision change Ears/Nose/Throat: No epistaxis, No recent hearing loss Respiratory: As described under HPI Cardiovascular: As described under HPI Gastrointestinal: No constipation, No diarrhea; nausea; No vomiting Genitourinary: No dysuria, No hematuria Musculoskeletal: other (right leg discomfort) Skin: No rash on exposed areas, No ulcerations on exposed areas Psychiatric/Neurological: anxiety, depression; No seizure, No focal weakness, No syncope Hematologic: No bleeding abnormalities All Other Systems Reviewed Negative Unless Noted: Yes YTD-Xonrwa-Dxfqfr Hx Patient Social History Smoking Status: Current Everyday Smoker 2nd Hand Smoke Exposure: No Have you traveled recently?: No Alcohol Use?: No Pt feels they are or have been: No Tobacco type used: Cigarettes Immunizations Up To Date Tetanus Booster (TDap): More than 5yrs Date of Pneumonia Vaccine: Jun 20, 2013 Date of Influenza Vaccine: May 09, 2021 Past Medical History PMH As described under Assessment. Family Medical History Family Medical History: Has family h/o of early CAD Allergies and Home Medications Allergies Coded Allergies: Penicillins (Verified Allergy, Unknown, 05/16/21) Sulfa (Sulfonamide Antibiotics) (Verified Allergy, Unknown, 05/16/21) naproxen (Verified Allergy, Unknown, HIVES, NAUSEA--can take ibuprofen, 05/16/21) Patient Home Medication List Acetaminophen (Tylenol Extra Strength) 500 Mg Tablet, 500 MG PO Q8H PRN for PAIN-MILD (1-4), (Reported) Entered as Reported by: DOLORES LARIOS on 08/15/21 1601 Aripiprazole (Abilify) 15 Mg Tablet, 7.5 MG PO DAILY, (Reported) Entered as Reported by: SONJA OH on 06/27/21 1036 Aspirin (Aspirin EC) 81 Mg Tablet.dr, 81 MG PO DAILY, (Reported) Entered as Reported by: SONJA OH on 05/24/21 0959 Atorvastatin Calcium (Atorvastatin Calcium) 80 Mg Tablet, 80 MG PO HS Prescribed by: RAINE HERNANDEZ on 08/16/21 1213 Clopidogrel Bisulfate (Plavix) 75 Mg Tablet, 75 MG PO DAILY, (Reported) Entered as Reported by: SONJA OH on 05/26/21 1059 Eszopiclone (Lunesta) 2 Mg Tablet, 2 MG PO HS, (Reported) Entered as Reported by: DOLORES LARIOS on 08/15/21 1555 Hydroxyzine HCl (Hydroxyzine HCl) 25 Mg Tablet, 25 MG PO BID PRN for ANXIETY, (Reported) Entered as Reported by: SONJA OH on 06/27/21 1036 Metformin HCl (Metformin HCl) 500 Mg Tablet, 500 MG PO DAILY, (Reported) Entered as Reported by: DOLORES LARIOS on 08/15/21 1552 Metoprolol Tartrate (Metoprolol Tartrate) 25 Mg Tablet, 12.5 MG PO BID, (Reported) Entered as Reported by: SONJA OH on 05/26/21 1059 Nitroglycerin (Nitroglycerin) 0.3 Mg Tab.subl, 0.3 MG SL Q5MIN PRN X3 PRN for CHEST PAIN (ANGINA) Prescribed by: RAINE HERNANDEZ on 10/09/21 1302 Ondansetron (Ondansetron Odt) 4 Mg Tab.rapdis, 4 MG PO Q6H PRN for NAUSEA/VOMITING Prescribed by: MARGARET HDEZ on 09/27/21 2231 Pantoprazole Sodium (Protonix) 40 Mg Tablet.dr, 40 MG PO BID Prescribed by: RAINE HERNANDEZ on 12/16/21 1005 Ranolazine (Ranexa) 500 Mg Tab.er.12h, 1,000 MG PO BID Prescribed by: RAINE HERNANDEZ on 08/16/21 1213 Sertraline HCl (Sertraline HCl) 100 Mg Tablet, 100 MG PO HS, (Reported) Entered as Reported by: SONJA OH on 06/27/21 1036 Physical Exam-Cardiology Physical Exam Vital Signs/I&O 12/16/21 12/16/21 12/16/21 12/16/21 02:36 02:58 03:33 03:45 Temp 36.0 Pulse 79 80 73 Resp 16 22 B/P (MAP) 130/85 108/66 (80) Pulse Ox 96 96 97 O2 Delivery Room Air Room Air Room Air 12/16/21 12/16/21 12/16/21 12/16/21 04:00 04:00 04:15 04:30 Temp 37.2 Pulse 73 74 85 Resp 22 23 23 B/P (MAP) 117/81 (93) 113/78 (90) 125/72 (89) Pulse Ox 95 98 97 97 O2 Delivery Room Air Room Air Room Air Room Air 12/16/21 12/16/21 12/16/21 12/16/21 05:00 06:00 07:00 08:38 Pulse 85 81 84 87 Resp 23 18 22 B/P (MAP) 132/84 (100) 107/85 (92) 118/37 (64) Pulse Ox 97 93 94 O2 Delivery Room Air Room Air Room Air 12/16/21 08:43 Pulse Ox 96 O2 Delivery Room Air Capillary Refill : Less Than 3 Seconds Constitutional: AAO x 3, well-developed, well-nourished HEENT: hearing is well preserved; No oral hygience is good (edentulous) Neck: No carotid bruit; carotid pulses are 2 + bilaterally Respiratory: No accessory muscle use, No respiratory distress; chest expansion is symmetric, chest is bilaterally symmetric, rhonchi (scattered, prolonged exp phase) Cardiovascular: regular rate-rhythm; No JVD; S1 and S2 Gastrointestinal: soft, round Data Review Labs Laboratory Tests 12/15/21 22:22: White Blood Count 8.8, Red Blood Count 4.14, Hemoglobin 13.5, Hematocrit 39, Mean Corpuscular Volume 94, Mean Corpuscular Hemoglobin 33, Mean Corpuscular Hemoglobin Concent 35, Red Cell Distribution Width 12.2, Platelet Count 349, Mean Platelet Volume 10.9, Immature Granulocyte % (Auto) 0, Neutrophils (%) (Auto) 50, Lymphocytes (%) (Auto) 33, Monocytes (%) (Auto) 6, Eosinophils (%) (Auto) 10, Basophils (%) (Auto) 1, Neutrophils # (Auto) 4.3, Lymphocytes # (Auto) 2.9, Monocytes # (Auto) 0.5, Eosinophils # (Auto) 0.9H, Basophils # (Auto) 0.1, Immature Granulocyte # (Auto) 0.0, Prothrombin Time 11.9L, INR Comment 0.9, Activated Partial Thromboplast Time 28, D-Dimer 1.09H, Sodium Level 138, Potassium Level 4.0, Chloride Level 102, Carbon Dioxide Level 21, Anion Gap 15H, Blood Urea Nitrogen 12, Creatinine 0.89, Estimat Glomerular Filtration Rate 80, BUN/Creatinine Ratio 13, Glucose Level 205H, Calcium Level 9.2, Corrected Calcium 9.3, Magnesium Level 1.8, Total Bilirubin 0.4, Aspartate Amino Transf (AST/SGOT) 14, Alanine Aminotransferase (ALT/SGPT) 19, Alkaline Phosphatase 112, Myoglobin 54.3, Troponin I < 0.028, Total Protein 6.8, Albumin 3.9, Lipase 31 12/16/21 04:39: White Blood Count 7.9, Red Blood Count 3.95, Hemoglobin 12.6, Hematocrit 37, Mean Corpuscular Volume 94, Mean Corpuscular Hemoglobin 32, Mean Corpuscular Hemoglobin Concent 34, Red Cell Distribution Width 11.9, Platelet Count 308, Mean Platelet Volume 10.4, Immature Granulocyte % (Auto) 0, Neutrophils (%) (Auto) 43, Lymphocytes (%) (Auto) 39, Monocytes (%) (Auto) 6, Eosinophils (%) (Auto) 12H, Basophils (%) (Auto) 1, Neutrophils # (Auto) 3.4, Lymphocytes # (Auto) 3.0, Monocytes # (Auto) 0.5, Eosinophils # (Auto) 0.9H, Basophils # (Auto) 0.1, Immature Granulocyte # (Auto) 0.0, Sodium Level 138, Potassium Level 4.2, Chloride Level 105, Carbon Dioxide Level 19L, Anion Gap 14, Blood Urea Nitrogen 11, Creatinine 0.78, Estimat Glomerular Filtration Rate 94, BUN/Cre atinine Ratio 14, Glucose Level 169H, Calcium Level 8.8, Troponin I < 0.028, Triglycerides Level 262H, Cholesterol Level 265H, LDL Cholesterol Direct 203H, VLDL Cholesterol 52H, HDL Cholesterol 37L 12/16/21 11:05: Glucometer 164H Radiology NAME: WAN DA SILVA [facility] REC#: [id number] PT STATUS: ADM Avril : 1975 PHYSICIAN: MARGARET HDEZ MD ADMIT DATE: 12/16/21/[facility] Draft Date of Exam:12/15/21 CHEST 1 VIEW, AP/PA ONLY INDICATION: Chest pain EXAMINATION: Chest 12/15/2021 COMPARISON: 10/30/2021 FINDINGS: There are sternotomy wires. Heart and pulmonary vasculature normal. Lungs and pleural spaces clear. IMPRESSION: No acute process Dictated on workstation # [id number] Dict: 12/16/21 0617 Trans: 12/16/21 0623 [id number] Interpreted by: JAZMIN MORRISON MD Electronically signed by: NAME: WAN DA SILVA [facility] REC#: [id number] PT STATUS: ADM Avril : 1975 PHYSICIAN: MARGARET HDEZ MD ADMIT DATE: 12/16/21/[facility] Signed Date of Exam:12/16/21 CT ANGIO CHEST W PROCEDURE: CT angiography of the chest with contrast. TECHNIQUE: Multiple contiguous axial images were obtained through the chest after uneventful bolus administration of intravenous contrast. 3D reconstructed CTA MIP acquisitions were also performed. Auto Exposure Controls were utilized during the CT exam to meet ALARA standards for radiation dose reduction. INDICATION: Chest pain Lungs are clear. There are no effusions or pneumothoraces. There is a sliding hiatal hernia. There are postoperative changes from CABG surgery. There is no aortic aneurysm or dissection. There are no pulmonary emboli. There is no right ventricular strain. There is no hilar or mediastinal lymphadenopathy. IMPRESSION: Postsurgical changes. Hiatal hernia. No acute abnormality seen I agree with preliminary interpretation. Dictated by: Dictated on workstation # [id number] Dict: 12/16/21 0646 Trans: 12/16/21 0648 [id number] Interpreted by: IMER KIMBALL MD Electronically signed by: IMER KIMBALL MD 12/16/2148 ECG Impression ECG Initial ECG Rhythm: Normal Sinus A/P-Cardiology Assessment/Admission Diagnosis Chest pain - undetermined etiology - no evidence of ACS CAD: - H/o CABG in 2009. -Last [place] on 04/23/20 due to mid-vessel, instent occlusion of RCA, treated with ballon angioplasty and stenting with Xience Radha 2.25x33 stent that was post- dilated to 3 mm kevin (Dr Bartlett). LAD had mild instent restenosis in prox LAD, LCX had patent stent, LVEDP 32 mmHg, preserved LV function, patent SVG to a diag, atretic LOPEZ to LAD. - MPI of 05-17-21: Inferior wall myocardial infarction with a small amount of ted-infarct ischemia. Inferior wall hypokinesis. Well preserved global left ventricular systolic function with ejection fraction of 54%. - Echo of 04/23/20: LVEF 55-60%, mild dil LA,mild to mod MR, PASP 25-30 mmHg - Card cath on 05/24/21: patent stents in the L cor system, occluded/atretic LOPEZ to LAD, patent SVG to an OM with 70% ostial stenosis that was successfully meredith nted on 05/24/21 with Radha 2.5 x 18 mm stent (deployed at 20 [address]), midvessel instent occlusion of RCA and 90% proximal instent stenosis of RCA, prox RCA stenosis reduced to 50% with balloon angioplasty, distal RCA occlusion could not be opened up, LVEDP 17 mmHg - Cardiac cath of 08-15-[address] Jay Normal central aortic pressure with elevated left ventricular end-diastolic pressure. Patent stent in the mid left anterior descending coronary artery. Total occlusion of the mid right coronary artery within previously placed stents. This is known to be a chronic total occlusion. The left internal mammary artery graft to left anterior descending coronary artery is known to be atretic and was not studied during this procedure. Patent saphenous vein graft to the obtuse marginal branch with a patent stent in the ostium. COPD - managed by PCP GI - Mod hiatal hernia seen on CT of chest on 02-03-21 and again on CTA of the chest on 12-16-21 - H/o erosive esophagitis Abnormal ECG - ECG of 05/24/20 shows NSR, old IMI Tobaccoism - cessation advised Hyperlipidemia - being treated with atorvastatin - managed by PCP History of maturity onset diabetes mellitus. - managed by PCP Obesity - with a body mass index of approx 36 Body habitus and daytime somnolence is suggestive of REINA - sleep studies advised Discussion and Recomendations Chest pain of undetermined etiology - no evidence of ACS Start PPI d/t known GERD and HH Continue home medications Monitor lab Replace electrolytes Ok to discharge home from cardiac stand point Advise f/u in 2 weeks at our office DAVID ERNST Dec 16, 2021 07:59
[2021-12-16] MEDS ORDERED: PANTOPRAZOLE 40 MG (PROTONIX) TAB PO SCH (09:00)
[2021-12-16] MEDS ORDERED: ASPIRIN E.C. 81 MG (ECOTRIN) TAB PO SCH (09:00)
--- NOTE | 2021-12-16 09:21 | Consultation-Cardiology ---
HPI-Cardiology Cardiology Consultation: Date of Consultation 12/16/21 Time Seen by a Provider: 09:00 Date of Admission Attending Physician Raine Hernandez MD Admitting Physician Willem Chamorro DO Consulting Physician JIMENA ROBLES MD, FACP, FACC HPI: Chief Complaint: Chest pain Ms. Champagne is a 46 yr old female admitted to 507 from the ED with c/o CP. She reports yesterday after eating breakfast she developed mid-sternal chest pain which radiated up and down her sternum. The discomfort was a constant. It did not change with movement. She does report epigastric tenderness with palpation. She reports episodes of diaphoresis. She has chronic mild to mod BUTT. She reports nausea with the discomfort. She reports she has been compliant with her medication regimen. She states she received nitro sublingual in the ED without any change. She received Morphine IV in the ED which provided some relief, but not complete resolution. She continues to report mild chest discomfort this morning. She denies any LE swelling. She continues to smoke 1/2 PPD of cigs. She denies any street drug usage. Review of Systems-Cardiology Review of Systems Constitutional: No chills, No fever; malaise Eyes: No vision change Ears/Nose/Throat: No epistaxis, No recent hearing loss Respiratory: As described under HPI Cardiovascular: As described under HPI Gastrointestinal: No constipation, No diarrhea; nausea; No vomiting Genitourinary: No dysuria, No hematuria Musculoskeletal: other (right leg discomfort) Skin: No rash on exposed areas, No ulcerations on exposed areas Psychiatric/Neurological: anxiety, depression; No seizure, No focal weakness, No syncope Hematologic: No bleeding abnormalities All Other Systems Reviewed Negative Unless Noted: Yes DLE-Khvikh-Uwheko Hx Patient Social History Smoking Status: Current Everyday Smoker 2nd Hand Smoke Exposure: No Have you traveled recently?: No Alcohol Use?: No Pt feels they are or have been: No Tobacco type used: Cigarettes Immunizations Up To Date Tetanus Booster (TDap): More than 5yrs Date of Pneumonia Vaccine: Jun 20, 2013 Date of Influenza Vaccine: May 09, 2021 Past Medical History PMH As described under Assessment. Family Medical History Family Medical History: Has family h/o of early CAD Allergies and Home Medications Allergies Coded Allergies: Penicillins (Verified Allergy, Unknown, 05/16/21) Sulfa (Sulfonamide Antibiotics) (Verified Allergy, Unknown, 05/16/21) naproxen (Verified Allergy, Unknown, HIVES, NAUSEA--can take ibuprofen, 05/16/21) Patient Home Medication List Home Medication List Reviewed: Yes Acetaminophen (Tylenol Extra Strength) 500 Mg Tablet, 500 MG PO Q8H PRN for PAIN-MILD (1-4), (Reported) Entered as Reported by: DOLORES LARIOS on 08/15/21 1601 Aripiprazole (Abilify) 15 Mg Tablet, 7.5 MG PO DAILY, (Reported) Entered as Reported by: SONJA OH on 06/27/21 1036 Aspirin (Aspirin EC) 81 Mg Tablet.dr, 81 MG PO DAILY, (Reported) Entered as Reported by: SONJA OH on 05/24/21 0959 Atorvastatin Calcium (Atorvastatin Calcium) 80 Mg Tablet, 80 MG PO HS Prescribed by: RAINE HERNANDEZ on 08/16/21 1213 Clopidogrel Bisulfate (Plavix) 75 Mg Tablet, 75 MG PO DAILY, (Reported) Entered as Reported by: SONJA OH on 05/26/21 1059 Eszopiclone (Lunesta) 2 Mg Tablet, 2 MG PO HS, (Reported) Entered as Reported by: DOLORES LARIOS on 08/15/21 1555 Hydroxyzine HCl (Hydroxyzine HCl) 25 Mg Tablet, 25 MG PO BID PRN for ANXIETY, (Reported) Entered as Reported by: SONJA OH on 06/27/21 1036 Metformin HCl (Metformin HCl) 500 Mg Tablet, 500 MG PO DAILY, (Reported) Entered as Reported by: DOLORES LARIOS on 08/15/21 1552 Metoprolol Tartrate (Metoprolol Tartrate) 25 Mg Tablet, 12.5 MG PO BID, (Reported) Entered as Reported by: SONJA OH on 05/26/21 1059 Nitroglycerin (Nitroglycerin) 0.3 Mg Tab.subl, 0.3 MG SL Q5MIN PRN X3 PRN for CHEST PAIN (ANGINA) Prescribed by: RAINE HERNANDEZ on 10/09/21 1302 Ondansetron (Ondansetron Odt) 4 Mg Tab.rapdis, 4 MG PO Q6H PRN for NAUSEA/VOMITING Prescribed by: MARGARET HDEZ on 2/8/22 2231 Pantoprazole Sodium (Protonix) 40 Mg Tablet.dr, 40 MG PO BID Prescribed by: RAINE HERNANDEZ on 10/09/21 1303 Ranolazine (Ranexa) 500 Mg Tab.er.12h, 1,000 MG PO BID Prescribed by: RAINE HERNANDEZ on 08/16/21 1213 Sertraline HCl (Sertraline HCl) 100 Mg Tablet, 100 MG PO HS, (Reported) Entered as Reported by: SONJA OH on 06/27/21 1036 Physical Exam-Cardiology Physical Exam Vital Signs/I&O 12/15/21 12/16/21 12/16/21 12/16/21 22:15 02:36 02:58 03:33 Temp 36.0 36.0 Pulse 95 79 80 Resp 16 16 B/P (MAP) 128/82 (97) 130/85 Pulse Ox 98 96 96 O2 Delivery Room Air Room Air Room Air 12/16/21 12/16/21 12/16/21 12/16/21 03:45 04:00 04:00 04:15 Temp 37.2 Pulse 73 73 74 Resp 22 22 23 B/P (MAP) 108/66 (80) 117/81 (93) 113/78 (90) Pulse Ox 97 95 98 97 O2 Delivery Room Air Room Air Room Air Room Air 12/16/21 12/16/21 12/16/21 12/16/21 04:30 05:00 06:00 07:00 Pulse 85 85 81 84 Resp 23 23 18 B/P (MAP) 125/72 (89) 132/84 (100) 107/85 (92) Pulse Ox 97 97 93 O2 Delivery Room Air Room Air Room Air 12/16/21 12/16/21 08:38 08:43 Pulse 87 Resp 22 B/P (MAP) 118/37 (64) Pulse Ox 94 96 O2 Delivery Room Air Room Air Capillary Refill : Less Than 3 Seconds Constitutional: AAO x 3, well-developed, well-nourished HEENT: hearing is well preserved; No oral hygience is good (edentulous) Neck: No carotid bruit; carotid pulses are 2 + bilaterally Respiratory: No accessory muscle use, No respiratory distress; chest expansion is symmetric, chest is bilaterally symmetric, rhonchi (scattered, prolonged exp phase) Cardiovascular: regular rate-rhythm; No JVD; S1 and S2 Gastrointestinal: soft, round Data Review Labs Laboratory Tests 12/15/21 22:22: White Blood Count 8.8, Red Blood Count 4.14, Hemoglobin 13.5, Hematocrit 39, Mean Corpuscular Volume 94, Mean Corpuscular Hemoglobin 33, Mean Corpuscular Hemoglobin Concent 35, Red Cell Distribution Width 12.2, Platelet Count 349, Mean Platelet Volume 10.9, Immature Granulocyte % (Auto) 0, Neutrophils (%) (Auto) 50, Lymphocytes (%) (Auto) 33, Monocytes (%) (Auto) 6, Eosinophils (%) (Auto) 10, Basophils (%) (Auto) 1, Neutrophils # (Auto) 4.3, Lymphocytes # (Auto) 2.9, Monocytes # (Auto) 0.5, Eosinophils # (Auto) 0.9H, Basophils # (Auto) 0.1, Immature Granulocyte # (Auto) 0.0, Prothrombin Time 11.9L, INR Comment 0.9, Activated Partial Thromboplast Time 28, D-Dimer 1.09H, Sodium Level 138, Potassium Level 4.0, Chloride Level 102, Carbon Dioxide Level 21, Anion Gap 15H, Blood Urea Nitrogen 12, Creatinine 0.89, Estimat Glomerular Filtration Rate 80, BUN/Creatinine Ratio 13, Glucose Level 205H, Calcium Level 9.2, Corrected Calcium 9.3, Magnesium Level 1.8, Total Bilirubin 0.4, Aspartate Amino Transf (AST/SGOT) 14, Alanine Aminotransferase (ALT/SGPT) 19, Alkaline Phosphatase 112, Myoglobin 54.3, Troponin I < 0.028, Total Protein 6.8, Albumin 3.9, Lipase 31 12/16/21 04:39: White Blood Count 7.9, Red Blood Count 3.95, Hemoglobin 12.6, Hematocrit 37, Mean Corpuscular Volume 94, Mean Corpuscular Hemoglobin 32, Mean Corpuscular Hemoglobin Concent 34, Red Cell Distribution Width 11.9, Platelet Count 308, Mean Platelet Volume 10.4, Immature Granulocyte % (Auto) 0, Neutrophils (%) (Aut o) 43, Lymphocytes (%) (Auto) 39, Monocytes (%) (Auto) 6, Eosinophils (%) (Auto) 12H, Basophils (%) (Auto) 1, Neutrophils # (Auto) 3.4, Lymphocytes # (Auto) 3.0, Monocytes # (Auto) 0.5, Eosinophils # (Auto) 0.9H, Basophils # (Auto) 0.1, Immature Granulocyte # (Auto) 0.0, Sodium Level 138, Potassium Level 4.2, Chloride Level 105, Carbon Dioxide Level 19L, Anion Gap 14, Blood Urea Nitrogen 11, Creatinine 0.78, Estimat Glomerular Filtration Rate 94, BUN/Creatinine Ratio 14, Glucose Level 169H, Calcium Level 8.8, Troponin I < 0.028, Triglycerides Level 262H, Cholesterol Level 265H, LDL Cholesterol Direct 203H, VLDL Cholesterol 52H, HDL Cholesterol 37L A/P-Cardiology Assessment/Admission Diagnosis Chest pain - undetermined etiology - no evidence of ACS CAD: - H/o CABG in 2009. -Last [place] on 04/23/20 due to mid-vessel, instent occlusion of RCA, treated with ballon angioplasty and stenting with Xience Radha 2.25x33 stent that was post- dilated to 3 mm kevin (Dr Bartlett). LAD had mild instent restenosis in prox LAD, LCX had patent stent, LVEDP 32 mmHg, preserved LV function, patent SVG to a diag, atretic LOPEZ to LAD. - MPI of 05-17-21: Inferior wall myocardial infarction with a small amount of ted-infarct ischemia. Inferior wall hypokinesis. Well preserved global left ventricular systolic function with ejection fraction of 54%. - Echo of 04/23/20: LVEF 55-60%, mild dil LA,mild to mod MR, PASP 25-30 mmHg - Card cath on 05/24/21: patent stents in the L cor system, occluded/atretic LOPEZ to LAD, patent SVG to an OM with 70% ostial stenosis that was successfully stented on 05/24/21 with Radha 2.5 x 18 mm stent (deployed at [address]), midvessel instent occlusion of RCA and 90% proximal instent stenosis of RCA, prox RCA stenosis reduced to 50% with balloon angioplasty, distal RCA occlusion could not be opened up, LVEDP 17 mmHg - Cardiac cath of 08-15-[address] Jay Normal central aortic pressure with elevated left ventricular end-diastolic pressure. Patent stent in the mid left anterior descending coronary artery. Total occlusion of the mid right coronary artery within previously placed stents. This is known to be a chronic total occlusion. The left internal mammary artery graft to left anterior descending coronary artery is known to be atretic and was not studied during this procedure. Patent saphenous vein graft to the obtuse marginal branch with a patent stent in the ostium. COPD - managed by PCP GI - Mod hiatal hernia seen on CT of chest on 02-03-21 and again on CTA of the chest on 12-16-21 - H/o erosive esophagitis Abnormal ECG - ECG of 05/24/20 shows NSR, old IMI Tobaccoism - cessation advised Hyperlipidemia - being treated with atorvastatin - managed by PCP History of maturity onset diabetes mellitus. - managed by PCP Obesity - with a body mass index of approx 36 Body habitus and daytime somnolence is suggestive of REINA - sleep studies advised Discussion and Recomendations Chest pain of undetermined etiology - no evidence of ACS Start PPI d/t known GERD and HH Continue home medications Monitor lab Replace electrolytes Ok to discharge home from cardiac stand point Advise f/u in 2 weeks at our office JIMENA ROBLES MD FACP FAC CCDS Dec 16, 2021 09:21
[2021-12-16] MEDS ORDERED: PANT40TA2 PO (10:05)
--- NOTE | 2021-12-16 20:54 | Discharge Summary ---
Discharge Summary Hospital Course Problems/Dx: (1) Chest pain Status: Acute Qualifiers: Qualified Codes: R07.9 - Chest pain, unspecified (2) Hiatal hernia with GERD Status: Acute Hospital Course Date of Admission: Dec 16, 2021 at 02:00 Admission Diagnosis: Chest pain Family Physician/Provider: Edwar Chamorro DO Date of Discharge: 12/16/21 Discharge Diagnosis: Hiatal hernia with GERD Hospital Course: Melanie Champagne is a 46 year old female who presented with chest pain. Cardiology was consulted and assisted with her care. There was no evidence of acute coronary syndrome. Her chest pain resolved. Her symptoms were thought to be due to acid reflux associated with hiatal hernia. She had not been taking a PPI. She was prescribed a two month supply of Pantoprazole to be taken twice daily, follo wed by once daily after that. She should follow up with her PCP and Cardiology as scheduled. She was discharged home in stable condition. Labs and Pending Lab Test: Laboratory Tests 12/15/21 22:22: White Blood Count 8.8, Red Blood Count 4.14, Hemoglobin 13.5, Hematocrit 39, Mean Corpuscular Volume 94, Mean Corpuscular Hemoglobin 33, Mean Corpuscular Hemoglobin Concent 35, Red Cell Distribution Width 12.2, Platelet Count 349, Mean Platelet Volume 10.9, Immature Granulocyte % (Auto) 0, Neutrophils (%) (Auto) 50, Lymphocytes (%) (Auto) 33, Monocytes (%) (Auto) 6, Eosinophils (%) (Auto) 10, Basophils (%) (Auto) 1, Neutrophils # (Auto) 4.3, Lymphocytes # (Auto) 2.9, Monocytes # (Auto) 0.5, Eosinophils # (Auto) 0.9H, Basophils # (Auto) 0.1, Immature Granulocyte # (Auto) 0.0, Prothrombin Time 11.9L, INR Comment 0.9, Activated Partial Thromboplast Time 28, D-Dimer 1.09H, Sodium Level 138, Potassium Level 4.0, Chloride Level 102, Carbon Dioxide Level 21, Anion Gap 15H, Blood Urea Nitrogen 12, Creatinine 0.89, Estimat Glomerular Filtration Rate 80, BUN/Creatinine Ratio 13, Glucose Level 205H, Calcium Level 9.2, Corrected Calcium 9.3, Magnesium Level 1.8, Total Bilirubin 0.4, Aspartate Amino Transf (AST/SGOT) 14, Alanine Aminotransferase (ALT/SGPT) 19, Alkaline Phosphatase 112, Myoglobin 54.3, Troponin I < 0.028, Total Protein 6.8, Albumin 3.9, Lipase 31 12/16/21 04:39: White Blood Count 7.9, Red Blood Count 3.95, Hemoglobin 12.6, Hematocrit 37, Mean Corpuscular Volume 94, Mean Corpuscular Hemoglobin 32, Mean Corpuscular Hemoglobin Concent 34, Red Cell Distribution Width 11.9, Platelet Count 308, Mean Platelet Volume 10.4, Immature Granulocyte % (Auto) 0, Neutrophils (%) (Auto) 43, Lymphocytes (%) (Auto) 39, Monocytes (%) (Auto) 6, Eosinophils (%) (Auto) 12H, Basophils (%) (Auto) 1, Neutrophils # (Auto) 3.4, Lymphocytes # (Auto) 3.0, Monocytes # (Auto) 0.5, Eosinophils # (Auto) 0.9H, Basophils # (Auto) 0.1, Immature Granulocyte # (Auto) 0.0, Sodium Level 138, Potassium Level 4.2, Chloride Level 105, Carbon Dioxide Level 19L, Anion Gap 14, Blood Urea Ni trogen 11, Creatinine 0.78, Estimat Glomerular Filtration Rate 94, BUN/Creatinine Ratio 14, Glucose Level 169H, Calcium Level 8.8, Troponin I < 0.028, Triglycerides Level 262H, Cholesterol Level 265H, LDL Cholesterol Direct 203H, VLDL Cholesterol 52H, HDL Cholesterol 37L 12/16/21 11:05: Glucometer 164H Home Meds Active Protonix (Pantoprazole Sodium) 40 Mg Tablet.dr 40 Mg PO BID 60 Days Nitroglycerin 0.3 Mg Tab.subl 0.3 Mg SL Q5MIN PRN X3 PRN 30 Days Ondansetron Odt (Ondansetron) 4 Mg Tab.rapdis 4 Mg PO Q6H PRN Atorvastatin Calcium 80 Mg Tablet 80 Mg PO HS 30 Days Ranexa (Ranolazine) 500 Mg Tab.er.12h 1,000 Mg PO BID 30 Days Reported Tylenol Extra Strength (Acetaminophen) 500 Mg Tablet 500 Mg PO Q8H PRN Lunesta (Eszopiclone) 2 Mg Tablet 2 Mg PO HS Metformin HCl 500 Mg Tablet 500 Mg PO DAILY Hydroxyzine HCl 25 Mg Tablet 25 Mg PO BID PRN Abilify (Aripiprazole) 15 Mg Tablet 7.5 Mg PO DAILY TAKES OF A 15MG TAB Sertraline HCl 100 Mg Tablet 100 Mg PO HS Metoprolol Tartrate 25 Mg Tablet 12.5 Mg PO BID TAKES OF A 25MG TAB Plavix (Clopidogrel Bisulfate) 75 Mg Tablet 75 Mg PO DAILY Aspirin EC (Aspirin) 81 Mg Tablet.dr 81 Mg PO DAILY Assessment/Pt Instructions See instructions Discharge Planning: >30 minutes discharge planning Discharge Instructions Discharge Diet: Low Sodium Diet Activity as Tolerated: Yes Consultations Cardiology Discharge Physical Examination Vital Signs Vital Signs Date Time Temp Pulse Resp B/P (MAP) Pulse Ox O2 Delivery O2 Flow Rate FiO2 12/16/21 13:15 37.2 87 22 118/37 96 Room Air General Appearance: No Apparent Distress, Anxious, Obese HEENT: PERRL/EOMI, Pharynx Normal Respiratory: Lungs Clear, No Respiratory Distress Cardiovascular: Regular Rate, Rhythm, No Murmur Gastrointestinal: Normal Bowel Sounds, Soft Extremity: Normal Inspection, No Pedal Edema Skin: Normal Color, Warm/Dry Neurologic/Psychiatric: Alert, No Motor/Sensory Deficits Allergies: Coded Allergies: Penicillins (Verified Allergy, Unknown, 05/16/21) Sulfa (Sulfonamide Antibiotics) (Verified Allergy, Unknown, 05/16/21) naproxen (Verified Allergy, Unknown, HIVES, NAUSEA--can take ibuprofen, 05/16/21) Copy Copies To 1: EDWAR CHAMORRO DO Discharge Summary Date of Admission Dec 16, 2021 at 02:00 Date of Discharge Dec 16, 2021 at 13:15 Discharge Date: Dec 16, 2021 Discharge Time: 13:15 Admission Diagnosis Chest pain Consults/Procedures Consulations Cardiology Discharge Diagnosis (1) Hiatal hernia with GERD Status: Acute RAINE HERNANDEZ MD Dec 16, 2021 20:53
== END 2021-12-16 13:15 | disposition home or self-care (01) ==
LOC: EDUNIT# 22:09 → ER 22:12 → CSD 12-16 02:00 → EDLOC 12-16 02:00 → INTOOBSV 12-16 02:00
PROVIDERS: ADMIT Internal Medicine; ATTEND Internal Medicine
DX: K21.9 Gastro-esophageal reflux disease without esophagitis (principal); K44.9 Diaphragmatic hernia without obstruction or gangrene; I25.10 Atherosclerotic heart disease of native coronary artery without angina pectoris; I25.82 Chronic total occlusion of coronary artery; J44.9 Chronic obstructive pulmonary disease, unspecified; F17.210 Nicotine dependence, cigarettes, uncomplicated; E78.5 Hyperlipidemia, unspecified; E78.00 Pure hypercholesterolemia, unspecified; E11.9 Type 2 diabetes mellitus without complications; E66.9 Obesity, unspecified; Z68.38 Body mass index [BMI] 38.0-38.9, adult; E03.9 Hypothyroidism, unspecified; F41.9 Anxiety disorder, unspecified; F32.A Depression, unspecified; Z95.5 Presence of coronary angioplasty implant and graft; Z95.1 Presence of aortocoronary bypass graft; Z28.310 Unvaccinated for COVID-19; Z88.6 Allergy status to analgesic agent; Z88.0 Allergy status to penicillin; Z88.2 Allergy status to sulfonamides; Z79.84 Long term (current) use of oral hypoglycemic drugs; Z79.82 Long term (current) use of aspirin
CPT/HCPCS: 36415; 71045; 71275; 80048; 80053; 80061; 82947; 83690; 83735; 83874; 84484; 85025; 85379; 85610; 85730; 93005

== ENCOUNTER 2021-12-29 19:00 | Emergency (ER) | payer MEDICAID, MEDICARE ==
[~2021-12-29] VITALS: Ht 172.7 cm; Wt 102.0 kg
--- NOTE | 2021-12-29 19:14 | ED Chest Pain ---
General Stated Complaint: CHEST PAIN Source: patient Exam Limitations: no limitations History of Present Illness Date Seen by Provider: December 29, 2021 Time Seen by Provider: 19:03 Initial Comments Patient is a 46-year-old female who presents to the emergency department today with a chief complaint of substernal chest pain that she states radiates into both her arms at about her wrists. She complains of feeling short of breath and also having a little bit of nausea. Patient states the pain started about 30 minutes prior to calling an ambulance. She was sitting on her couch listening to music. She states she occasionally has discomfort like this, she currently rates it "an 8" however. She thinks its been about a year since she has had a stress test. She tells me she has a history of coronary artery bypass and prior stent placement. She states nothing makes the pain any better or any worse. She was given full-strength aspirin on her ambulance ride. No history of blood clots. She states her right leg occasionally swells more than her left. This is the source of her bypass grafting. No recent fevers, chills, productive cough. No vomiting or diarrhea. She has had previous "esophagus surgery". No burning with urination. No sick contacts, COVID concerns. Patient states her r developer is Dr. Aguilar She is a diabetic on metformin. She continues to smoke and she does vape. All other review of systems reviewed and negative except as stated Timing/Duration: 1/2 hour Severity/Quality: moderate, pressure Location: substernal Radiation: arms (To the wrists bilaterally) Activities at Onset: rest Prior CP/Workup: cardiac cath, cardiolye scan ASA po PAINTER SET: Yes NTG SL PAINTER SET: No Associated Symptoms: nausea/vomiting, shortness of breath Allergies and Home Medications Allergies Coded Allergies: Penicillins (Verified Allergy, Unknown, 05/16/21) Sulfa (Sulfonamide Antibiotics) (Verified Allergy, Unknown, 05/16/21) naproxen (Verified Allergy, Unknown, HIVES, NAUSEA--can take ibuprofen, 05/16/21) Patient Home Medication List Home Medication List Reviewed: Yes Acetaminophen (Tylenol Extra Strength) 500 Mg Tablet, 500 MG PO Q8H PRN for PAIN-MILD (1-4), (Reported) Entered as Reported by: DOLORES LARIOS on 08/15/21 1601 Aripiprazole (Abilify) 15 Mg Tablet, 7.5 MG PO DAILY, (Reported) Entered as Reported by: SONJA OH on 06/27/21 1036 Aspirin (Aspirin EC) 81 Mg Tablet.dr, 81 MG PO DAILY, (Reported) Entered as Reported by: SONJA OH on 05/24/21 0959 Atorvastatin Calcium (Atorvastatin Calcium) 80 Mg Tablet, 80 MG PO HS Prescribed by: RAINE HERNANDEZ on 08/16/21 1213 Clopidogrel Bisulfate (Plavix) 75 Mg Tablet, 75 MG PO DAILY, (Reported) Entered as Reported by: SONJA OH on 05/26/21 1059 Eszopiclone (Lunesta) 2 Mg Tablet, 2 MG PO HS, (Reported) Entered as Reported by: DOLORES LARIOS on 08/15/21 1555 Hydroxyzine HCl (Hydroxyzine HCl) 25 Mg Tablet, 25 MG PO BID PRN for ANXIETY, (Reported) Entered as Reported by: SONJA OH on 06/27/21 1036 Metformin HCl (Metformin HCl) 500 Mg Tablet, 500 MG PO DAILY, (Reported) Entered as Reported by: DOLORES LARIOS on 08/15/21 1552 Metoprolol Tartrate (Metoprolol Tartrate) 25 Mg Tablet, 12.5 MG PO BID, (Reported) Entered as Reported by: SONJA OH on 05/26/21 1059 Nitroglycerin (Nitroglycerin) 0.3 Mg Tab.subl, 0.3 MG SL Q5MIN PRN X3 PRN for CHEST PAIN (ANGINA) Prescribed by: RAINE HERNANDEZ on 10/09/21 1302 Ondansetron (Ondansetron Odt) 4 Mg Tab.rapdis, 4 MG PO Q6H PRN for NAUSEA/VOMITING Prescribed by: MARGARET HDEZ on 09/27/21 2231 Pantoprazole Sodium (Protonix) 40 Mg Tablet.dr, 40 MG PO BID Prescribed by: RAINE HERNANDEZ on 12/16/21 1005 Ranolazine (Ranexa) 500 Mg Tab.er.12h, 1,000 MG PO BID Prescribed by: RAINE HERNANDEZ on 08/16/21 1213 Sertraline HCl (Sertraline HCl) 100 Mg Tablet, 100 MG PO HS, (Reported) Entered as Reported by: SONJA OH on 06/27/21 1036 Review of Systems Review of Systems Constitutional: see HPI EENTM: No Symptoms Reported Respiratory: Shortness of Air Cardiovascular: Chest Pain Gastrointestinal: Nausea Genitourinary: No Symptoms Reported Musculoskeletal: no symptoms reported Skin: no symptoms reported Psychiatric/Neurological: No Symptoms Reported All Other Systems Reviewed Negative Unless Noted: Yes Past Csofabk-Vcvwun-Fwnmat Hx Immunizations Up To Date Tetanus Booster (TDap): More than 5yrs First/Initial COVID19 Vaccinat: not vaccinated Second COVID19 Vaccination Mark: not vaccinated Third COVID19 Vaccination Date: not vaccinated Seasonal Allergies Seasonal Allergies: No Past Medical History Surgery/Hospitalization HX: CABG, TRACHEOSTOMY 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) Sexually Transmitted Disease: Yes (HERPES) Genitourinary: No Gastrointestinal: Yes (S/P FABRICE FUNDOPLICATION) Gastroesophageal Reflux, Esophagitis, Hiatal Hernia, Gall Bladder Disease Musculoskeletal: Yes Arthritis Endocrine: Yes Hypothyroidsim, Diabetes, Non-Insulin dep HEENT: Yes Chronic Ear Infection Hearing Impairment: Hard of Hearing Cancer: Yes Cervical Did You Recieve Any Treatments: Yes What Type of Treatment Did You: Surgical Intervention Psychosocial: Yes Sleep Difficulties, Anxiety, Suicide Attempts, Depression Integumentary: No Blood Disorders: No Adverse Reaction/Blood Tranf: No Family Medical History No Pertinent Family Hx SOCIAL HISTORY: -SMOKES AT LEAST 1 PPD -ETOH--DENIES USE -DENIES DRUG USE ADDITIONAL PAST MEDICAL AND PROCEDURAL HISTORY: -FABRICE FUNDOPLICATION -CHOLECYSTECTOMY -TONSILLECTOMY/ADENOIDECTOMY -TRACHEOSTOMY/LATER REMOVAL -PT HAD NSTEMI AND WAS ADMITTED 04/22/20-04/24/20, HAD CARDIAC CATH 04/23/20 AND HAD STENT X 1 TO RCA -PT HAS PREVIOUSLY HAD A CABG IN 2009, MULTIPLE STENTS TO RCA, AND STENT TO CIRCUMFLEX IN THE PAST. CARDIAC CATH 05/24/[address] AGUILAR: CONCLUSIONS: 1. Coronary artery disease as detailed above. The left anterior descending and left circumflex arteries have patent stents. An obtuse marginal branch of the left circumflex has a patent aortocoronary graft, this graft had 70% ostial stenosis and was successfully stented with Radha 2.5 x 18 mm stent, deployed at 20 atmospheres. The right coronary artery had 90% proximal stenosis, which went to 50% stenosis following balloon angioplasty. The mid and distal right coronary artery have in-stent occlusion. This is a very long segment of occlusion and attempts at percutaneous intervention to this portion of the vessel were unsuccessful. 2. Mild elevation of left ventricular end-diastolic pressure. DISCUSSION AND RECOMMENDATIONS: Risk factor modification has been advised. Dual antiplatelet therapy is being continued. Because of low blood pressure, she is not a suitable candidate for beta blockers or MORRO inhibitors or angiotensin receptor blockers. Statin therapy is being continued. -CARDIAC CATH 08/14/[address] JAY: IMPRESSION: 1. Normal central aortic pressure with elevated left ventricular end-diastolic pressure. 2. Patent stent in the mid left anterior descending coronary artery. 3. Total occlusion of the mid right coronary artery within previously placed stents. This is known to be a chronic total occlusion. 4. The left internal mammary artery graft to left anterior descending coronary artery is known to be atretic and was not studied during this procedure. 5. Patent saphenous vein graft to the obtuse marginal branch with a patent stent in the ostium. 6. The patient is known to have normal left ventricular systolic function with an estimated ejection fraction of 60-65% by echocardiogram performed earlier today. 7. The patient may be having angina from small vessel disease. Physical Exam Vital Signs Vital Signs - First Documented 12/29/21 19:00 Temp 36.4 Pulse 93 Resp 16 B/P (MAP) 109/81 (90) Pulse Ox 96 Capillary Refill : Height, Weight, BMI Height: 5'8.00" Weight: 189lbs. 0.0oz. 85.186823fu; 38.07 BMI Method:Stated General Appearance: No Apparent Distress, WD/WN HEENT: PERRL/EOMI, Pharynx Normal (Edentulous), Moist Mucous Membranes Neck: Normal Inspection Respiratory: Chest Non Tender, Lungs Clear (Oxygen saturations 99% on room air), Normal Breath Sounds, No Accessory Muscle Use, No Respiratory Distress Cardiovascular: Regular Rate, Rhythm, Normal Peripheral Pulses Gastrointestinal: Non Tender, Soft Extremity: Normal Capillary Refill, Normal Inspection, Normal Range of Motion, Non Tender, No Calf Tenderness, No Pedal Edema Neurologic/Psychiatric: Alert, Oriented x3, No Motor/Sensory Deficits, Normal Mood/Affect Skin: Normal Color, Warm/Dry Progress/Results/Core Measures Results/Orders Lab Results Laboratory Tests Test 12/29/21 19:00 12/29/21 22:15 Range/Units White Blood Count 7.9 4.3-11.0 10^3/uL Red Blood Count 4.37 3.80-5.11 10^6/uL Hemoglobin 14.3 11.5-16.0 g/dL Hematocrit 41 35-52 % Mean Corpuscular Volume 93 80-99 fL Mean Corpuscular Hemoglobin 33 25-34 pg Mean Corpuscular Hemoglobin Concent 35 32-36 g/dL Red Cell Distribution Width 12.1 10.0-14.5 % Platelet Count 332 130-400 10^3/uL Mean Platelet Volume 10.8 9.0-12.2 fL Immature Granulocyte % (Auto) 0 % Neutrophils (%) (Auto) 49 42-75 % Lymphocytes (%) (Auto) 34 12-44 % Monocytes (%) (Auto) 6 0-12 % Eosinophils (%) (Auto) 9 0-10 % Basophils (%) (Auto) 1 0-10 % Neutrophils # (Auto) 3.9 1.8-7.8 10^3/uL Lymphocytes # (Auto) 2.7 1.0-4.0 10^3/uL Monocytes # (Auto) 0.5 0.0-1.0 10^3/uL Eosinophils # (Auto) 0.7 H 0.0-0.3 10^3/uL Basophils # (Auto) 0.1 0.0-0.1 10^3/uL Immature Granulocyte # (Auto) 0.0 0.0-0.1 10^3/uL Prothrombin Time 12.3 12.2-14.7 SEC INR Comment 0.9 0.8-1.4 Activated Partial Thromboplast Time 30 24-35 SEC Sodium Level 139 135-145 MMOL/L Potassium Level 3.6 3.6-5.0 MMOL/L Chloride Level 103 98-107 MMOL/L Carbon Dioxide Level 19 L 21-32 MMOL/L Anion Gap 17 H 5-14 MMOL/L Blood Urea Nitrogen 15 7-18 MG/DL Creatinine 1.15 0.60-1.30 MG/DL Estimat Glomerular Filtration Rate 59 BUN/Creatinine Ratio 13 Glucose Level 197 H 70-105 MG/DL Calcium Level 9.3 8.5-10.1 MG/DL Corrected Calcium 9.4 8.5-10.1 MG/DL Magnesium Level 1.7 1.6-2.4 MG/DL Total Bilirubin 0.5 0.1-1.0 MG/DL Aspartate Amino Transf (AST/SGOT) 14 5-34 U/L Alanine Aminotransferase (ALT/SGPT) 17 0-55 U/L Alkaline Phosphatase 112 40-136 U/L Myoglobin 33.2 10.0-92.0 NG/ML Troponin I < 0.028 < 0.028 <0.028 NG/ML Total Protein 7.2 6.4-8.2 GM/DL Albumin 3.9 3.2-4.5 GM/DL My Orders Orders - HOANG MINAYA MD Ekg Tracing (12/29/21:12) Cbc With Automated Diff (12/29/21 19:15) Magnesium (12/29/21 19:15) Chest 1 View, Ap/Pa Only (12/29/21 19:15) Comprehensive Metabolic Panel (12/29/21 19:15) Myoglobin Serum (12/29/21 19:15) Protime With Inr (12/29/21 19:15) Partial Thromboplastin Time (12/29/21 19:15) O2 (12/29/21 19:15) Monitor-Rhythm Ecg Trace Only (12/29/21 19:15) Lipid Panel (12/30/21 06:00) Ed Iv/Invasive Line Start (12/29/21 19:15) Troponin I Kt (12/29/21 19:15) Ns Iv 1000 Ml (Sodium Chloride 0.9%) (12/29/21 19:30) Nitroglycerin 0.4 Mg Btl 25's (Nitrostat (12/29/21 19:19) Ondansetron Injection (Zofran Injectio (12/29/21 19:30) Sucralfate Tablet (Carafate Tablet) (12/29/21 20:30) Antacid Suspension (Mylanta Suspension (12/29/21 20:30) Lidocaine 2% Viscous 15 Ml (Xylocaine Vi (12/29/21 20:30) Ketorolac Injection (Toradol Injection) (12/29/21 20:30) Ondansetron Injection (Zofran Injectio (12/29/21 21:15) Morphine Injection (Morphine Injection (12/29/21 21:39) Troponin I [place] (12/29/21 22:29) Medications Given in ED Current Medications Medications Dose Ordered Sig/Sara Route Start Time Stop Time Status Last Admin Dose Admin Al Hydrox/Mg Hydrox/Simethicone 30 ml ONCE ONCE PO 12/29/21 20:30 12/29/21 20:31 DC 12/29/21 20:36 30 ML Ketorolac Tromethamine 15 mg ONCE ONCE IVP 12/29/21 20:30 12/29/21 20:31 DC 12/29/21 20:37 15 MG Lidocaine HCl 5 ml ONCE ONCE PO 12/29/21 20:30 12/29/21 20:31 DC 12/29/21 20:36 5 ML Ondansetron HCl 4 mg ONCE ONCE IVP 12/29/21 19:30 12/29/21 19:31 DC 12/29/21 19:43 4 MG Ondansetron HCl 4 mg ONCE ONCE IVP 12/29/21 21:15 12/29/21 21:16 DC 12/29/21 21:19 4 MG Sucralfate 1 gm ONCE ONCE PO 12/29/21 20:30 12/29/21 20:31 DC 12/29/21 20:37 1 GM Vital Signs/I&O 12/29/21 19:00 Temp 36.4 Pulse 93 Resp 16 B/P (MAP) 109/81 (90) Pulse Ox 96 Progress Progress Note #1: Time: 20:26 Progress Note reassessed after the nitro; she states it did not make any difference at all to her pain. BP 90 systolic, fluids running. She states her nausea is a "little better". Will add a GI cocktail and some toradol. May need to add some morphine if this does not help. Will hold her here for a 4 hour troponin. per review of cardiology consultation just this last november they state : - Card cath on 05/24/21: patent stents in the L cor system, occluded/atretic LOPEZ to LAD, patent SVG to an OM with 70% ostial stenosis that was successfully stented on 05/24/21 with Radha 2.5 x 18 mm stent (deployed at 20 [place]), midvessel instent occlusion of RCA and 90% proximal instent stenosis of RCA, prox RCA stenosis reduced to 50% with balloon angioplasty, distal RCA occlusion could not be opened up, LVEDP 17 mmHg - Cardiac cath of 08-15-[address] Jay Normal central aortic pressure with elevated left ventricular end-diastolic pressure. Patent stent in the mid left anterior descending coronary artery. Total occlusion of the mid right coronary artery within previously placed stents. This is known to be a chronic total occlusion. The left internal mammary artery graft to left anterior descending c oronary artery is known to be atretic and was not studied during this procedure. Patent saphenous vein graft to the obtuse marginal branch with a patent stent in the ostium. Patient has ongoing tobacco use. Advised to quit. At that visit in November, no evidence of ACS. will proceed with repeat troponin at 10:30pm Progress Note #2: Time: 21:37 Progress Note After getting relief from the GI cocktail and toradol, the patient is now stating that her chest pain is starting to come back. Vital signs remain stable and she clinically looks in no distress. Troponin repeat is pending for 1030pm. Will go ahead and give some morphine and see if we can get her pain free. Progress Note #3: Time: 22:57 Progress Note Patient's laboratory evaluation is unremarkable. She is slightly hyperglycemic due to her diabetes. Troponin x2 up to a 5-hour span after the onset of symptoms is negative. Her chest x-ray is reassuring. Her vital signs have remained stable. She has been treated with multiple medications for her pain here in the emergency department including sublingual nitro, GI cocktail, IV Toradol, and morphine. She is continued to complain of pain out of proportion to clinical/objective findings. I have encouraged her to follow-up with Dr. Aguilar, to call his office first thing in the morning for a follow-up appointment. No findings tonight that are concerning for acute coronary syndrome, pneumonia, sepsis, dissection, pulmonary embolism. We will give her a hydrocodone tablet prior to discharge. Return precautions discussed. Patient verbalized understanding. All questions are sought and answered. Patient is stable for discharge. Initial ECG Impression Date: December 29, 2021 Initial ECG Impression Time: 19:14 Initial ECG Rate: 88 Initial ECG Rhythm: Normal Sinus Initial ECG Intervals: Normal Initial ECG Impression: Nonspecific Changes Comment Deep Q waves in the inferior leads. No ST segment elevation or depression is observed. No ectopy is observed. Normal intervals Diagnostic Imaging Diagonstic Imaging: Xray Plain Films/CT/US/NM/MRI: chest Comments [facility] Audit [place], [place] NAME: WAN DA SILVA [facility] REC#: [id number] PT STATUS: REG ER : 1975 PHYSICIAN: HOANG MINAYA MD ADMIT DATE: 12/29/21/ER Signed Date of Exam:12/29/21 CHEST 1 VIEW, AP/PA ONLY EXAMINATION: Chest radiograph, portable AP view. DATE: 12/29/2021 8:12 PM INDICATION: 46-year-old female, chest pain and shortness of breath. COMPARISON: December 15, 2021. FINDINGS: There are median sternotomy wires. Heart size and mediastinal contours are unremarkable. There is no identified pneumothorax. There is no large pleural effusion. There is no identified interval focal airspace consolidation. IMPRESSION: No identified interval acute cardiopulmonary abnormality. Dictated by: Dictated on workstation # [id number] Dict: 12/29/212025 Trans: 12/29/212225 [facility] [id number] Interpreted by: ANDRAE INTERIANO MD Electronically signed by: ANDRAE INTERIANO MD 12/29/212225 Counseling-Symptomatic: 3-10 Minutes Follow-up with PCP to: Discuss Further Options CP/AMI: Aspirin, ECG, Nitrates Departure Impression Primary Impression: Atypical chest pain Additional Impression: History of coronary artery disease Disposition: 01 HOME, SELF-CARE Condition: Stable Departure-Patient Inst. Decision time for Depature: 22:59 Referrals: JIMENA AGUILAR MD FACP FACC CCDS EDWAR LOBO DO (PCP/Family) Primary Care Physician Patient Instructions: Chest Pain That Is Not Caused by the Heart (DC) Add. Discharge Instructions: Please continue all your daily medications as prescribed. Check your blood sugars often. Please call Dr. Aguilar's office first thing this morning for a follow-up appointment next week. If you have any worsening symptoms of chest pain especially with other concerns such as fever, worsening shortness of breath, nausea please come back to the emergency room for reevaluation. You can take tzsy-wpo-efodvpy Tylenol or ibuprofen for your chest pain. You should also be on an acid sales floor associate such as Zantac or Pepcid daily. Copy Copies To 1: JIMENA AGUILAR MD FACP FACC CCDS HOANG MINAYA MD December 29, 2021 19:14
[2021-12-29] MEDS ORDERED: NITROGLYCERIN 0.4 MG SL TABS BTL 25'S SL STA (19:19)
[2021-12-29 19:23] LABS: BASOPHILS # (AUTO) 0.1 10^3/uL (0.0-0.1); BASOPHILS % (AUTO) 1 % (0-10); EOSINOPHILS # (AUTO) 0.7 10^3/uL (0.0-0.3); EOSINOPHILS % (AUTO) 9 % (0-10); HEMATOCRIT 41 % (35-52); HEMOGLOBIN 14.3 g/dL (11.5-16.0); LYMPHOCYTES # (AUTO) 2.7 10^3/uL (1.0-4.0); LYMPHOCYTES % (AUTO) 34 % (12-44); MEAN CORPUSCULAR HEMOGLOBIN 33 pg (25-34); MEAN CORPUSCULAR HGB CONC 35 g/dL (32-36); MEAN CORPUSCULAR VOLUME 93 fL (80-99); MEAN PLATELET VOLUME 10.8 fL (9.0-12.2); MONOCYTES # (AUTO) 0.5 10^3/uL (0.0-1.0); MONOCYTES % (AUTO) 6 % (0-12); NEUTROPHILS # (AUTO) 3.9 10^3/uL (1.8-7.8); NEUTROPHILS % (AUTO) 49 % (42-75); PLATELET COUNT 332 10^3/uL (130-400); WHITE BLOOD COUNT 7.9 10^3/uL (4.3-11.0)
[2021-12-29] MEDS ORDERED: NS IV 1000 ML 1,000 ML IV SCH (19:30)
[2021-12-29] MEDS ORDERED: ONDANSETRON 4 MG/2 ML (SDV) Z0FRAN IVP ONE ×2 (19:30→21:15)
[2021-12-29 19:37] LABS: INR 0.9 (0.8-1.4); PROTHROMBIN TIME PATIENT 12.3 SEC (12.2-14.7)
[2021-12-29 19:45] LABS: ALBUMIN 3.9 GM/DL (3.2-4.5); BILIRUBIN,TOTAL 0.5 MG/DL (0.1-1.0); CALCIUM 9.3 MG/DL (8.5-10.1); CREATININE SERUM 1.15 MG/DL (0.60-1.30); MAGNESIUM 1.7 MG/DL (1.6-2.4); POTASSIUM 3.6 MMOL/L (3.6-5.0); TOTAL PROTEIN 7.2 GM/DL (6.4-8.2)
[2021-12-29] MEDS ORDERED: SUCRALFATE 1 GM (CARAFATE) TAB PO ONE (20:30)
[2021-12-29] MEDS ORDERED: LIDOCAINE 2% VISCOUS 15 ML UDC PO ONE (20:30)
[2021-12-29] MEDS ORDERED: KETOROLAC 30 MG/ML VIAL IVP ONE (20:30)
[2021-12-29] MEDS ORDERED: ANTACID SUSP 30 ML UDC (MYLANTA) PO ONE (20:30)
--- NOTE | 2021-12-29 20:31 | Diagnostic Imaging Report ---
EXAMINATION: Chest radiograph, portable AP view. DATE: 12/29/2021 8:12 PM INDICATION: 46-year-old female, chest pain and shortness of breath. COMPARISON: December 15, 2021. FINDINGS: There are median sternotomy wires. Heart size and mediastinal contours are unremarkable. There is no identified pneumothorax. There is no large pleural effusion. There is no identified interval focal airspace consolidation. IMPRESSION: No identified interval acute cardiopulmonary abnormality. Dictated by: Dictated on workstation # [id number]
[2021-12-29] MEDS ORDERED: morphine INJ 10 MG/ML 1ML (SYR OR VIAL) IVP STA (21:39)
[2021-12-29 23:05] VITALS: BP 115/76
== END 2021-12-29 23:07 | disposition home or self-care (01) ==
LOC: EDUNIT# 19:00 → ER 19:07
DX: I25.10 Atherosclerotic heart disease of native coronary artery without angina pectoris (principal); E11.65 Type 2 diabetes mellitus with hyperglycemia; F17.290 Nicotine dependence, other tobacco product, uncomplicated; Z95.5 Presence of coronary angioplasty implant and graft; Z95.1 Presence of aortocoronary bypass graft; Z28.310 Unvaccinated for COVID-19
CPT/HCPCS: 36415; 71045; 80053; 83735; 83874; 84484; 85025; 85610; 85730; 93005; 93041

== ENCOUNTER 2022-02-07 17:36 | Emergency (ER) | payer MEDICARE ==
[~2022-02-07] VITALS: Ht 172 cm; Wt 99.0 kg
[2022-02-07 17:58] LABS: BASOPHILS # (AUTO) 0.1 10^3/uL (0.0-0.1); BASOPHILS % (AUTO) 1 % (0-10); EOSINOPHILS # (AUTO) 0.3 10^3/uL (0.0-0.3); EOSINOPHILS % (AUTO) 5 % (0-10); HEMATOCRIT 42 % (35-52); HEMOGLOBIN 14.4 g/dL (11.5-16.0); LYMPHOCYTES # (AUTO) 2.7 10^3/uL (1.0-4.0); LYMPHOCYTES % (AUTO) 42 % (12-44); MEAN CORPUSCULAR HEMOGLOBIN 32 pg (25-34); MEAN CORPUSCULAR HGB CONC 35 g/dL (32-36); MEAN CORPUSCULAR VOLUME 93 fL (80-99); MEAN PLATELET VOLUME 10.5 fL (9.0-12.2); MONOCYTES # (AUTO) 0.4 10^3/uL (0.0-1.0); MONOCYTES % (AUTO) 7 % (0-12); NEUTROPHILS # (AUTO) 2.9 10^3/uL (1.8-7.8); NEUTROPHILS % (AUTO) 46 % (42-75); PLATELET COUNT 298 10^3/uL (130-400); WHITE BLOOD COUNT 6.4 10^3/uL (4.3-11.0)
[2022-02-07 18:09] LABS: ALBUMIN 3.8 GM/DL (3.2-4.5)
[2022-02-07 18:10] LABS: POTASSIUM 4.1 MMOL/L (3.6-5.0); PROTHROMBIN TIME PATIENT 13.1 SEC (12.2-14.7)
[2022-02-07 18:11] LABS: CALCIUM 9.5 MG/DL (8.5-10.1)
[2022-02-07 18:14] LABS: BILIRUBIN,TOTAL 0.6 MG/DL (0.1-1.0)
[2022-02-07] MEDS ORDERED: morphine INJ 10 MG/ML 1ML (SYR OR VIAL) IVP STA ×3 (18:15→19:26)
[2022-02-07] MEDS ORDERED: ONDANSETRON 4 MG/2 ML (SDV) Z0FRAN IVP ONE (18:15)
[2022-02-07 18:16] LABS: CREATININE SERUM 0.93 MG/DL (0.60-1.30)
[2022-02-07 18:18] LABS: MAGNESIUM 1.8 MG/DL (1.6-2.4)
[2022-02-07 18:26] LABS: CREATINE KINASE MB 1.3 NG/ML (<6.6)
--- NOTE | 2022-02-07 18:32 | Diagnostic Imaging Report ---
Portable erect AP chest at 6:27 PM. Indication: Chest pain The study is less than optimal due to the patient's body habitus. The heart size is within normal limits and stable when compared to 12/29/2021. The sternotomy wires and surgical clips noted previously are again evident and no different. The lungs are partially obscured by overlying breast/chest tissue. However there is no sign of failure, pneumonia or pleural effusion. The mediastinum is not widened. The osseous structures are intact. Impression: There is no evidence for an acute cardiopulmonary abnormality. Dictated by: Dictated on workstation # [id number]
[2022-02-07] MEDS ORDERED: morphine PF (DURAMORPH) 10 MG/10 ML AMP IV ONE (19:30)
--- NOTE | 2022-02-07 19:30 | ED Chest Pain ---
General Chief Complaint: Chest Pain Stated Complaint: CHEST PAIN Nursing Triage Note: ARRIVED VIA EMS FROM HOME WITH CHEST PAIN STARTING ABOUT 1530. STATES SHE TOOK NITRO WHICH DID NOT HELP. EMS GAVE ASPRIN 324 MG PO. Source: patient Exam Limitations: no limitations History of Present Illness Date Seen by Provider: Feb 07, 2022 Time Seen by Provider: 19:19 Initial Comments This is a 46-year-old female who presented to the ER with complaints of atypical chest pain that started around 230 this afternoon. She has a history of Allergies and Home Medications Allergies Coded Allergies: Penicillins (Verified Allergy, Unknown, 05/16/21) Sulfa (Sulfonamide Antibiotics) (Verified Allergy, Unknown, 05/16/21) naproxen (Verified Allergy, Unknown, HIVES, NAUSEA--can take ibuprofen, 05/16/21) Patient Home Medication List Acetaminophen (Tylenol Extra Strength) 500 Mg Tablet, 500 MG PO Q8H PRN for PAIN-MILD (1-4), (Reported) Entered as Reported by: DOLORES LARIOS on 08/15/21 1601 Aripiprazole (Abilify) 15 Mg Tablet, 7.5 MG PO DAILY, (Reported) Entered as Reported by: SONJA OH on 06/27/21 1036 Aspirin (Aspirin EC) 81 Mg Tablet.dr, 81 MG PO DAILY, (Reported) Entered as Reported by: SONJA OH on 05/24/21 0959 Atorvastatin Calcium (Atorvastatin Calcium) 80 Mg Tablet, 80 MG PO HS Prescribed by: RAINE HERNANDEZ on 08/16/21 1213 Clopidogrel Bisulfate (Plavix) 75 Mg Tablet, 75 MG PO DAILY, (Reported) Entered as Reported by: SONJA OH on 05/26/21 1059 Eszopiclone (Lunesta) 2 Mg Tablet, 2 MG PO HS, (Reported) Entered as Reported by: DOLORES LARIOS on 08/15/21 1555 Hydroxyzine HCl (Hydroxyzine HCl) 25 Mg Tablet, 25 MG PO BID PRN for ANXIETY, (Reported) Entered as Reported by: SONJA OH on 06/27/21 1036 Metformin HCl (Metformin HCl) 500 Mg Tablet, 500 MG PO DAILY, (Reported) Entered as Reported by: DOLORES LARIOS on 08/15/21 1552 Metoprolol Tartrate (Metoprolol Tartrate) 25 Mg Tablet, 12.5 MG PO BID, (Reported) Entered as Reported by: SONJA OH on 05/26/21 1059 Nitroglycerin (Nitroglycerin) 0.3 Mg Tab.subl, 0.3 MG SL Q5MIN PRN X3 PRN for CHEST PAIN (ANGINA) Prescribed by: RAINE HERNANDEZ on 10/09/21 1302 Ondansetron (Ondansetron Odt) 4 Mg Tab.rapdis, 4 MG PO Q6H PRN for NAUSEA/VOMITING Prescribed by: MARGARET HDEZ on 09/27/21 2231 Pantoprazole Sodium (Protonix) 40 Mg Tablet.dr, 40 MG PO BID Prescribed by: RAINE HERNANDEZ on 12/16/21 1005 Ranolazine (Ranexa) 500 Mg Tab.er.12h, 1,000 MG PO BID Prescribed by: RAINE HERNANDEZ on 08/16/21 1213 Sertraline HCl (Sertraline HCl) 100 Mg Tablet, 100 MG PO HS, (Reported) Entered as Reported by: SONJA OH on 06/27/21 1036 Past Favlbop-Ceuldh-Fponxn Hx Patient Social History Smoking Status: Current Everyday Smoker Substance use?: No Alcohol Use?: No Immunizations Up To Date Tetanus Booster (TDap): More than 5yrs First/Initial COVID19 Vaccinat: not vaccinated Second COVID19 Vaccination Mark: not vaccinated Third COVID19 Vaccination Date: not vaccinated Seasonal Allergies Seasonal Allergies: No Past Medical History Surgery/Hospitalization HX: CABG, TRACHEOSTOMY 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) Sexually Transmitted Disease: Yes (HERPES) Genitourinary: No Gastrointestinal: Yes (S/P FABRICE FUNDOPLICATION) Gastroesophageal Reflux, Esophagitis, Hiatal Hernia, Gall Bladder Disease Musculoskeletal: Yes Arthritis Endocrine: Yes Hypothyroidsim, Diabetes, Non-Insulin dep HEENT: Yes Chronic Ear Infection Hearing Impairment: Hard of Hearing Cancer: Yes Cervical Did You Recieve Any Treatments: Yes What Type of Treatment Did You: Surgical Intervention Psychosocial: Yes Sleep Difficulties, Anxiety, Suicide Attempts, Depression Integumentary: No Blood Disorders: No Adverse Reaction/Blood Tranf: No Family Medical History No Pertinent Family Hx SOCIAL HISTORY: -SMOKES AT LEAST 1 PPD -ETOH--DENIES USE -DENIES DRUG USE ADDITIONAL PAST MEDICAL AND PROCEDURAL HISTORY: -FABRICE FUNDOPLICATION -CHOLECYSTECTOMY -TONSILLECTOMY/ADENOIDECTOMY -TRACHEOSTOMY/LATER REMOVAL -PT HAD NSTEMI AND WAS ADMITTED 04/22/20-04/24/20, HAD CARDIAC CATH 04/23/20 AND HAD STENT X 1 TO RCA -PT HAS PREVIOUSLY HAD A CABG IN 2009, MULTIPLE STENTS TO RCA, AND STENT TO CIRCUMFLEX IN THE PAST. CARDIAC CATH 05/24/[address] ROBLES: CONCLUSIONS: 1. Coronary artery disease as detailed above. The left anterior descending and left circumflex arteries have patent stents. An obtuse marginal branch of the left circumflex has a patent aortocoronary graft, this graft had 70% ostial stenosis and was successfully stented with Radha 2.5 x 18 mm stent, deployed at 20 atmospheres. The right coronary artery had 90% proximal stenosis, which went to 50% stenosis following balloon angioplasty. The mid and distal right coronary artery have in-stent occlusion. This is a very long segment of occlusion and attempts at percutaneous intervention to this portion of the vessel were unsuccessful. 2. Mild elevation of left ventricular end-diastolic pressure. DISCUSSION AND RECOMMENDATIONS: Risk factor modification has been advised. Dual antiplatelet therapy is being continued. Because of low blood pressure, she is not a suitable candidate for beta blockers or MORRO inhibitors or angiotensin receptor blockers. Statin therapy is being continued. -CARDIAC CATH 08/14/[address] ALAN: IMPRESSION: 1. Normal central aortic pressure with elevated left ventricular end-diastolic pressure. 2. Patent stent in the mid left anterior descending coronary artery. 3. Total occlusion of the mid right coronary artery within previously placed stents. This is known to be a chronic total occlusion. 4. The left internal mammary artery graft to left anterior descending coronary artery is known to be atretic and was not studied during this procedure. 5. Patent saphenous vein graft to the obtuse marginal branch with a patent stent in the ostium. 6. The patient is known to have normal left ventricular systolic function with an estimated ejection fraction of 60-65% by echocardiogram performed earlier today. 7. The patient may be having angina from small vessel disease. Physical Exam Vital Signs Vital Signs - First Documented 02/07/22 17:36 Temp 36.3 Pulse 88 Resp 16 B/P (MAP) 124/94 (104) Pulse Ox 96 O2 Delivery Room Air Capillary Refill : Less Than 3 Seconds Height, Weight, BMI Height: 5'8.00" Weight: 189lbs. 0.0oz. 85.979088th; 33.00 BMI Method:Stated Progress/Results/Core Measures Results/Orders Lab Results Laboratory Tests Test 02/07/22 17:55 Range/Units White Blood Count 6.4 4.3-11.0 10^3/uL Red Blood Count 4.46 3.80-5.11 10^6/uL Hemoglobin 14.4 11.5-16.0 g/dL Hematocrit 42 35-52 % Mean Corpuscular Volume 93 80-99 fL Mean Corpuscular Hemoglobin 32 25-34 pg Mean Corpuscular Hemoglobin Concent 35 32-36 g/dL Red Cell Distribution Width 12.1 10.0-14.5 % Platelet Count 298 130-400 10^3/uL Mean Platelet Volume 10.5 9.0-12.2 fL Immature Granulocyte % (Auto) 0 % Neutrophils (%) (Auto) 46 42-75 % Lymphocytes (%) (Auto) 42 12-44 % Monocytes (%) (Auto) 7 0-12 % Eosinophils (%) (Auto) 5 0-10 % Basophils (%) (Auto) 1 0-10 % Neutrophils # (Auto) 2.9 1.8-7.8 10^3/uL Lymphocytes # (Auto) 2.7 1.0-4.0 10^3/uL Monocytes # (Auto) 0.4 0.0-1.0 10^3/uL Eosinophils # (Auto) 0.3 0.0-0.3 10^3/uL Basophils # (Auto) 0.1 0.0-0.1 10^3/uL Immature Granulocyte # (Auto) 0.0 0.0-0.1 10^3/uL Prothrombin Time 13.1 12.2-14.7 SEC INR Comment 1.0 0.8-1.4 Activated Partial Thromboplast Time 28 24-35 SEC D-Dimer 0.44 0.00-0.49 UG/ML Sodium Level 137 135-145 MMOL/L Potassium Level 4.1 3.6-5.0 MMOL/L Chloride Level 104 98-107 MMOL/L Carbon Dioxide Level 23 21-32 MMOL/L Anion Gap 10 5-14 MMOL/L Blood Urea Nitrogen 13 7-18 MG/DL Creatinine 0.93 0.60-1.30 MG/DL Estimat Glomerular Filtration Rate 76 BUN/Creatinine Ratio 14 Glucose Level 205 H 70-105 MG/DL Calcium Level 9.5 8.5-10.1 MG/DL Corrected Calcium 9.7 8.5-10.1 MG/DL Magnesium Level 1.8 1.6-2.4 MG/DL Total Bilirubin 0.6 0.1-1.0 MG/DL Aspartate Amino Transf (AST/SGOT) 13 5-34 U/L Alanine Aminotransferase (ALT/SGPT) 19 0-55 U/L Alkaline Phosphatase 119 40-136 U/L Total Creatine Kinase 69 29-168 U/L Creatine Kinase MB 1.3 <6.6 NG/ML Myoglobin 26.1 10.0-92.0 NG/ML Troponin I < 0.028 <0.028 NG/ML B-Type Natriuretic Peptide 30.4 <100.0 PG/ML Total Protein 7.0 6.4-8.2 GM/DL Albumin 3.8 3.2-4.5 GM/DL Lipase 48 8-78 U/L My Orders Orders - ROSIO KENNEDY DIETETIC TECHNICIAN Cbc With Automated Diff (02/07/22 17:42) Magnesium (02/07/22 17:42) Ekg Tracing (02/07/22 17:42) Comprehensive Metabolic Panel (02/07/22 17:42) Myoglobin Serum (02/07/22 17:42) Protime With Inr (02/07/22 17:42) Partial Thromboplastin Time (02/07/22 17:42) O2 (02/07/22 17:42) Monitor-Rhythm Ecg Trace Only (02/07/22 17:42) Ed Iv/Invasive Line Start (02/07/22 17:42) Creatine Kinase (02/07/22 17:42) Creatine Kinase Mb (02/07/22 17:42) Lipase (02/07/22 17:42) Bnp Kt (02/07/22 17:42) Fibrin Degradation Products (02/07/22 17:42) Troponin I [place] (02/07/22 17:42) Ekg Tracing (02/07/22 17:52) Morphine Injection (Morphine Injection (02/07/22 18:15) Ondansetron Injection (Zofran Injectio (02/07/22 18:15) Chest 1 View, Ap/Pa Only (02/07/22 18:17) Morphine Pf Inj (Duramorph Pf Inj) (02/07/22 19:30) Troponin I Kt (02/07/22 20:30) Morphine Injection (Morphine Injection (02/07/22 19:23) Morphine Injection (Morphine Injection (02/07/22 19:26) Medications Given in ED Current Medications Medications Dose Ordered Sig/Sara Route Start Time Stop Time Status Last Admin Dose Admin Ondansetron HCl 4 mg ONCE ONCE IVP 02/07/22 18:15 02/07/22 18:16 DC 02/07/22 18:28 4 MG Vital Signs/I&O 02/07/22 17:36 Temp 36.3 Pulse 88 Resp 16 B/P (MAP) 124/94 (104) Pulse Ox 96 O2 Delivery Room Air Blood Pressure Mean: 104 Departure Impression Primary Impression: Chronic chest pain Additional Impression: Smoker Departure-Patient Inst. Decision time for Depature: 19:38 Referrals: EDWAR LOBO DO (PCP/Family) Primary Care Physician Patient Instructions: Chest Pain (DC) Add. Discharge Instructions: Plan: 1. Quit smoking. This may help improve your symptoms and reduce chest pain. 2. Take Nitro as directed if you have any chest pain at home. 3. Follow up with your doctor later this week or next week. 4. Return for any new, concerning, or worsening symptoms. All discharge instructions reviewed with patient and/or family. Voiced understanding. ROSIO KENNEDY DIETETIC TECHNICIAN Feb 07, 2022 19:30
[2022-02-07 20:40] VITALS: BP 125/80
== END 2022-02-07 20:43 | disposition home or self-care (01) ==
LOC: EDUNIT# 17:36 → ER 17:45
DX: G89.29 Other chronic pain (principal); R07.89 Other chest pain; F17.200 Nicotine dependence, unspecified, uncomplicated; Z28.310 Unvaccinated for COVID-19
CPT/HCPCS: 36415; 71045; 80053; 82550; 82553; 83690; 83735; 83874; 83880; 84484; 85025; 85379; 85610; 85730; 93005; 93041

== ENCOUNTER 2022-03-03 17:18 | Observation (INO) | payer MEDICARE ==
[~2022-03-03] VITALS: Ht 172.7 cm; Wt 117.0 kg
[2022-03-03] MEDS ORDERED: morphine INJ 10 MG/ML 1ML (SYR OR VIAL) IV STA (17:43)
[2022-03-03] MEDS ORDERED: ASPIRIN 81 MG CHEW (CHILDREN'S ASA) PO ONE (17:45)
--- NOTE | 2022-03-03 17:48 | ED Chest Pain ---
General Chief Complaint: Chest Pain Stated Complaint: CHEST PAIN,SOB Nursing Triage Note: PT PRESENTS TO ED VIA EMS FROM HOME WITH COMPLAINTS OF CP STARTING AROUND 1700 TODAY. PT REPORTS SHE TOOK 2 HOME NITRO WITHOUT RELIEF. Source: patient Exam Limitations: no limitations (MARGARET HDEZ) History of Present Illness Date Seen by Provider: Mar 03, 2022 Time Seen by Provider: 17:16 Initial Comments Patient to the ER by EMS from home with chief complaint she was just sitting on the sofa with a friend watching TV when she started having some substernal left- sided chest pain radiating to her left shoulder and down her left arm. She has a history of CABG and coronary disease known to Dr. Aguilar and Dr. Chamorro respectively. She took 2 doses of her nitroglycerin with no relief of her symptoms and called EMS. She took 1 tablet of aspirin this morning as well as she has been on her Plavix routinely. Her last heart cath was in July 2021 demonstrating stable coronary disease. She has a history of hypertension, hyperlipidemia, diabetes and smokes half pack cigarettes per day. She denies any recreational drug use. (MARGARET HDEZ) Allergies and Home Medications Allergies Coded Allergies: Penicillins (Verified Allergy, Unknown, 05/16/21) Sulfa (Sulfonamide Antibiotics) (Verified Allergy, Unknown, 05/16/21) naproxen (Verified Allergy, Unknown, HIVES, NAUSEA--can take ibuprofen, 05/16/21) Patient Home Medication List Home Medication List Reviewed: Yes (MARGARET HDEZ) Acetaminophen (Tylenol Extra Strength) 500 Mg Tablet, 500 MG PO Q8H PRN for LEE ANN N-MILD (1-4), (Reported) Entered as Reported by: DOLORES LARIOS on 08/15/21 1601 Aripiprazole (Abilify) 15 Mg Tablet, 7.5 MG PO DAILY, (Reported) Entered as Reported by: SONJA OH on 06/27/21 1036 Aspirin (Aspirin EC) 81 Mg Tablet.dr, 81 MG PO DAILY, (Reported) Entered as Reported by: SONJA OH on 05/24/21 0959 Atorvastatin Calcium (Atorvastatin Calcium) 80 Mg Tablet, 80 MG PO HS Prescribed by: RAINE HERNANDEZ on 08/16/21 1213 Clopidogrel Bisulfate (Plavix) 75 Mg Tablet, 75 MG PO DAILY, (Reported) Entered as Reported by: SONJA OH on 05/26/21 1059 Eszopiclone (Lunesta) 2 Mg Tablet, 2 MG PO HS, (Reported) Entered as Reported by: DOLORES LARIOS on 08/15/21 1555 Hydroxyzine HCl (Hydroxyzine HCl) 25 Mg Tablet, 25 MG PO BID PRN for ANXIETY, (Reported) Entered as Reported by: SONJA OH on 06/27/21 1036 Metformin HCl (Metformin HCl) 500 Mg Tablet, 500 MG PO DAILY, (Reported) Entered as Reported by: DOLORES LARIOS on 08/15/21 1552 Metoprolol Tartrate (Metoprolol Tartrate) 25 Mg Tablet, 12.5 MG PO BID, (Reported) Entered as Reported by: SONJA OH on 05/26/21 1059 Nitroglycerin (Nitroglycerin) 0.3 Mg Tab.subl, 0.3 MG SL Q5MIN PRN X3 PRN for CHEST PAIN (ANGINA) Prescribed by: RAINE HERNANDEZ on 10/09/21 1302 Ondansetron (Ondansetron Odt) 4 Mg Tab.rapdis, 4 MG PO Q6H PRN for NAUSEA/VOMITING Prescribed by: MARGARET HDEZ on 09/27/21 2231 Pantoprazole Sodium (Protonix) 40 Mg Tablet.dr, 40 MG PO BID Prescribed by: RAINE HERNANDEZ on 12/16/21 1005 Ranolazine (Ranexa) 500 Mg Tab.er.12h, 1,000 MG PO BID Prescribed by: RAINE HERNANDEZ on 08/16/21 1213 Sertraline HCl (Sertraline HCl) 100 Mg Tablet, 100 MG PO HS, (Reported) Entered as Reported by: SONJA OH on 06/27/21 1036 Review of Systems Review of Systems Constitutional: No chills, No diaphoresis EENTM: No Blurred Vision, No Double Vision Respiratory: Denies Cough, Denies Shortness of Air Cardiovascular: See HPI, Chest Pain; Denies Edema, Denies Irregular Heart Rate Gastrointestinal: Denies Abdominal Pain, Denies Constipated, Denies Diarrhea, Denies Nausea Genitourinary: Denies Burning, Denies Discharge Musculoskeletal: No back pain, No joint pain (MARGARET HDEZ) All Other Systems Reviewed Negative Unless Noted: Yes (MARGARET HDEZ) Past Ktziumc-Veeoll-Kwsbwb Hx Patient Social History Tobacco Use?: Yes Tobacco type used: Cigarettes Smoking Status: Current Everyday Smoker Substance use?: No Alcohol Use?: No Pt feels they are or have been: No (MARGARET HDEZ) Immunizations Up To Date Tetanus Booster (TDap): More than 5yrs First/Initial COVID19 Vaccinat: not vaccinated Second COVID19 Vaccination Mark: not vaccinated Third COVID19 Vaccination Date: not vaccinated (MARGARET HDEZ) Seasonal Allergies Seasonal Allergies: No (MARGARET HDEZ) Past Medical History Surgery/Hospitalization HX: PMH: HIGH CHOL, COPD, DM2, HTN, GERD, SX: CABG 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) Sexually Transmitted Disease: Yes (HERPES) Genitourinary: No Gastrointestinal: Yes (S/P FABRICE FUNDOPLICATION) Gastroesophageal Reflux, Esophagitis, Hiatal Hernia, Gall Bladder Disease Musculoskeletal: Yes Arthritis Endocrine: Yes Hypothyroidsim, Diabetes, Non-Insulin dep HEENT: Yes Chronic Ear Infection Hearing Impairment: Hard of Hearing Cancer: Yes Cervical Did You Recieve Any Treatments: Yes What Type of Treatment Did You: Surgical Intervention Psychosocial: Yes Sleep Difficulties, Anxiety, Suicide Attempts, Depression Integumentary: No Blood Disorders: No Adverse Reaction/Blood Tranf: No (MARGARET HDEZ) Family Medical History No Pertinent Family Hx SOCIAL HISTORY: -SMOKES AT LEAST 1 PPD -ETOH--DENIES USE -DENIES DRUG USE ADDITIONAL PAST MEDICAL AND PROCEDURAL HISTORY: -FABRICE FUNDOPLICATION -CHOLECYSTECTOMY -TONSILLECTOMY/ADENOIDECTOMY -TRACHEOSTOMY/LATER REMOVAL -PT HAD NSTEMI AND WAS ADMITTED 04/22/20-04/24/20, HAD CARDIAC CATH 04/23/20 AND HAD STENT X 1 TO RCA -PT HAS PREVIOUSLY HAD A CABG IN 2010, MULTIPLE STENTS TO RCA, AND STENT TO CIRCUMFLEX IN THE PAST. CARDIAC CATH 05/24/[address] AGUILAR: CONCLUSIONS: 1. Coronary artery disease as detailed above. The left anterior descending and left circumflex arteries have patent stents. An obtuse marginal branch of the left circumflex has a patent aortocoronary graft, this graft had 70% ostial stenosis and was successfully stented with Radha 2.5 x 18 mm stent, deployed at 20 atmospheres. The right coronary artery had 90% proximal stenosis, which went to 50% stenosis following balloon angioplasty. The mid and distal right coronary artery have in-stent occlusion. This is a very long segment of occlusion and attempts at percutaneous intervention to this portion of the vessel were unsuccessful. 2. Mild elevation of left ventricular end-diastolic pressure. DISCUSSION AND RECOMMENDATIONS: Risk factor modification has been advised. Dual antiplatelet therapy is being continued. Because of low blood pressure, she is not a suitable candidate for beta blockers or MORRO inhibitors or angiotensin receptor blockers. Statin therapy is being continued. -CARDIAC CATH 08/14/[address] ALAN: IMPRESSION: 1. Normal central aortic pressure with elevated left ventricular end-diastolic pressure. 2. Patent stent in the mid left anterior descending coronary artery. 3. Total occlusion of the mid right coronary artery within previously placed stents. This is known to be a chronic total occlusion. 4. The left internal mammary artery graft to left anterior descending coronary artery is known to be atretic and was not studied during this procedure. 5. Patent saphenous vein graft to the obtuse marginal branch with a patent stent in the ostium. 6. The patient is known to have normal left ventricular systolic function with an estimated ejection fraction of 60-65% by echocardiogram performed earlier today. 7. The patient may be having angina from small vessel disease. (MARGARET HDEZ) Physical Exam Vital Signs Vital Signs - First Documented 03/03/22 17:25 Temp 36.5 Pulse 86 Resp 24 B/P (MAP) 121/75 (90) Pulse Ox 96 (MARQUISE,HEATH K DO) Vital Signs Capillary Refill : Less Than 3 Seconds (MARGARET HDEZ) Height, Weight, BMI Height: 5'8.00" Weight: 189lbs. 0.0oz. 85.125676nv; 33.00 BMI Method:Stated (MARGARET HDEZ) Progress/Results/Core Measures Results/Orders Lab Results Laboratory Tests Test 03/03/22 17:25 Range/Units White Blood Count 8.1 4.3-11.0 10^3/uL Red Blood Count 4.38 3.80-5.11 10^6/uL Hemoglobin 14.1 11.5-16.0 g/dL Hematocrit 41 35-52 % Mean Corpuscular Volume 93 80-99 fL Mean Corpuscular Hemoglobin 32 25-34 pg Mean Corpuscular Hemoglobin Concent 35 32-36 g/dL Red Cell Distribution Width 12.1 10.0-14.5 % Platelet Count 279 130-400 10^3/uL Mean Platelet Volume 10.8 9.0-12.2 fL Immature Granulocyte % (Auto) 0 % Neutrophils (%) (Auto) 59 42-75 % Lymphocytes (%) (Auto) 28 12-44 % Monocytes (%) (Auto) 7 0-12 % Eosinophils (%) (Auto) 5 0-10 % Basophils (%) (Auto) 1 0-10 % Neutrophils # (Auto) 4.8 1.8-7.8 10^3/uL Lymphocytes # (Auto) 2.3 1.0-4.0 10^3/uL Monocytes # (Auto) 0.5 0.0-1.0 10^3/uL Eosinophils # (Auto) 0.4 H 0.0-0.3 10^3/uL Basophils # (Auto) 0.1 0.0-0.1 10^3/uL Immature Granulocyte # (Auto) 0.0 0.0-0.1 10^3/uL Prothrombin Time 12.5 12.2-14.7 SEC INR Comment 0.9 0.8-1.4 Activated Partial Thromboplast Time 31 24-35 SEC Sodium Level 136 135-145 MMOL/L Potassium Level 4.2 3.6-5.0 MMOL/L Chloride Level 104 98-107 MMOL/L Carbon Dioxide Level 21 21-32 MMOL/L Anion Gap 11 5-14 MMOL/L Blood Urea Nitrogen 9 7-18 MG/DL Creatinine 1.01 0.60-1.30 MG/DL Estimat Glomerular Filtration Rate 69 BUN/Creatinine Ratio 9 Glucose Level 296 H 70-105 MG/DL Calcium Level 8.9 8.5-10.1 MG/DL Corrected Calcium 9.0 8.5-10.1 MG/DL Magnesium Level 1.7 1.6-2.4 MG/DL Total Bilirubin 0.7 0.1-1.0 MG/DL Aspartate Amino Transf (AST/SGOT) 17 5-34 U/L Alanine Aminotransferase (ALT/SGPT) 17 0-55 U/L Alkaline Phosphatase 116 40-136 U/L Myoglobin 40.1 10.0-92.0 NG/ML Troponin I < 0.028 <0.028 NG/ML B-Type Natriuretic Peptide 46.8 <100.0 PG/ML Total Protein 6.9 6.4-8.2 GM/DL Albumin 3.9 3.2-4.5 GM/DL Lipase 49 8-78 U/L (MARQUISE,HEATH K DO) My Orders Orders - MARQUISEBLACKA K Ondansetron Injection (Zofran Injectio (03/03/22 19:00) Morphine Injection (Morphine Injection (03/03/22 18:59) (MARQUISEHEATH K ) Medications Given in ED Current Medications Medications Dose Ordered Sig/Sara Route Start Time Stop Time Status Last Admin Dose Admin Aspirin 243 mg ONCE ONCE PO 03/03/22 17:45 03/03/22 17:46 DC 03/03/22 18:11 243 MG (MARQUISE,HEATH K DO) Vital Signs/I&O 03/03/22 17:25 Temp 36.5 Pulse 86 Resp 24 B/P (MAP) 121/75 (90) Pulse Ox 96 (MARQUISE,HEATH K DO) Blood Pressure Mean: 90 Progress Progress Note : Time: 17:47 Progress Note We gave her 3 tablets of aspirin and initiated a cardiac work-up including giving her 2 mg of IV morphine for her moderate chest pain. Since he is not getting better with nitroglycerin we will consider other possibilities and give her a GI cocktail as well as atypical angina. She states this is the same chest pain that she normally gets just worse than usual. (MARGARET HDEZ) Progress Note : Progress Note 1800--ASSUMED CARE FROM DR. HDEZ, LAB PENDING. PT STATES SLIGHT IMPROVEMENT IN PAIN WITH MORPHINE. 0--REVIEWED TEST RESULTS AND PLAN OF CARE TO DO SERIAL REPEAT EKG AND TROPONIN, AND PT IS AGREEABLE TO THIS PLAN. PT C/O MILD NAUSEA AND CONTINUED CHEST PAIN. ADDITIONAL MORPHINE AND ZOFRAN ORDERED (HEATH BILLY DO) Initial ECG Impression Date: Mar 03, 2022 Initial ECG Impression Time: 17:27 Initial ECG Rate: 83 Initial ECG Rhythm: Normal Sinus Initial ECG Intervals: Normal Initial ECG Impression: Normal Comment Normal sinus rhythm without clinically relevant ST elevation or depression. (MARGARET HDEZ) Diagnostic Imaging Diagonstic Imaging: Xray Plain Films/CT/US/NM/MRI: chest Reviewed: Reviewed by Me (MARGARET HDEZ) Transfer of Care Time: 18:02 Care transferred to: Dr. Billy (MARGARET HDEZ) Departure Communication (Admissions) 1905--SPOKE WITH DR. AGUILAR. ADVISES TO DO SERIAL/REPEAT EKG AND TROPONIN, AND IF STILL NEGATIVE/UNCHANGED, MAY SEND HOME IF PT FEELS COMFORTABLE GOING HOME. (HEATH BILLY DO) Impression Primary Impression: Chronic chest pain Additional Impression: HX OF CAD WITH CABG Departure-Patient Inst. Referrals: EDWAR CHAMORRO DO (PCP/Family) Primary Care Physician MARGARET HDEZ Mar 03, 2022 17:48 HEATH BILLY DO Mar 03, 2022 19:13
[2022-03-03 17:52] LABS: BASOPHILS # (AUTO) 0.1 10^3/uL (0.0-0.1); BASOPHILS % (AUTO) 1 % (0-10); EOSINOPHILS # (AUTO) 0.4 10^3/uL (0.0-0.3); EOSINOPHILS % (AUTO) 5 % (0-10); HEMATOCRIT 41 % (35-52); HEMOGLOBIN 14.1 g/dL (11.5-16.0); LYMPHOCYTES # (AUTO) 2.3 10^3/uL (1.0-4.0); LYMPHOCYTES % (AUTO) 28 % (12-44); MEAN CORPUSCULAR HEMOGLOBIN 32 pg (25-34); MEAN CORPUSCULAR HGB CONC 35 g/dL (32-36); MEAN CORPUSCULAR VOLUME 93 fL (80-99); MEAN PLATELET VOLUME 10.8 fL (9.0-12.2); MONOCYTES # (AUTO) 0.5 10^3/uL (0.0-1.0); MONOCYTES % (AUTO) 7 % (0-12); NEUTROPHILS # (AUTO) 4.8 10^3/uL (1.8-7.8); NEUTROPHILS % (AUTO) 59 % (42-75); PLATELET COUNT 279 10^3/uL (130-400); WHITE BLOOD COUNT 8.1 10^3/uL (4.3-11.0)
[2022-03-03 17:59] LABS: ALBUMIN 3.9 GM/DL (3.2-4.5); POTASSIUM 4.2 MMOL/L (3.6-5.0)
[2022-03-03 18:00] LABS: INR 0.9 (0.8-1.4); PROTHROMBIN TIME PATIENT 12.5 SEC (12.2-14.7)
[2022-03-03 18:01] LABS: CALCIUM 8.9 MG/DL (8.5-10.1)
[2022-03-03 18:02] LABS: TOTAL PROTEIN 6.9 GM/DL (6.4-8.2)
[2022-03-03 18:04] LABS: BILIRUBIN,TOTAL 0.7 MG/DL (0.1-1.0)
[2022-03-03 18:06] LABS: CREATININE SERUM 1.01 MG/DL (0.60-1.30)
[2022-03-03 18:08] LABS: MAGNESIUM 1.7 MG/DL (1.6-2.4)
--- NOTE | 2022-03-03 18:09 | Diagnostic Imaging Report ---
INDICATION: Chest pain. COMPARISON: Study compared with exam 02/07/2022. FINDINGS: Sternal wires are midline. The lungs are clear. No failure, effusion, or pneumothorax. IMPRESSION: No acute appearing abnormality. Dictated by: Dictated on workstation # [id number]
[2022-03-03] MEDS ORDERED: morphine INJ 10 MG/ML 1ML (SYR OR VIAL) IVP STA ×2 (18:59→20:08)
[2022-03-03] MEDS ORDERED: ONDANSETRON 4 MG/2 ML (SDV) Z0FRAN IVP ONE ×2 (19:00→20:15)
[2022-03-03] MEDS ORDERED: IOHEXOL 350 MG/ML 100 ML (OMNIPAQUE 350) VIAL IV ONE (20:15)
[2022-03-03] MEDS ORDERED: NS 100 ML (IVPB) BAG IV ONE (20:15)
--- NOTE | 2022-03-03 21:08 | Diagnostic Imaging Report ---
INDICATION: Pain, N/V TECHNIQUE: CTA chest, abdomen and pelvis. Thin axial sections through the chest, abdomen and pelvis are obtained following intravenous contrast bolus. Multiplanar MIP images were reconstructed and reviewed. All CT scans use one or more of the following dose optimizing techniques: automated exposure control, MA and/or KvP adjustment based on patient size and exam type or iterative reconstruction. INDICATION: Chest pain. CHEST: Pulmonary arterial branches widely patent. No PE. Aorta is nonaneurysmal. There are slight zones of pulmonary partial atelectasis and a small to moderate retrocardiac gastric hernia. No findings of pulmonary edema or pneumonia. No lung mass. No thoracic adenopathy. No acute chest wall abnormality. Previous sternotomy without dehiscence. ABDOMEN/PELVIS: Gallbladder absent. No biliary dilatation. Spleen, adrenals and pancreas unremarkable. Kidneys unobstructed, nonfocal and nonacute. There is no bowel obstruction. There is a normal appendix. There is no diverticulitis. The uterus, adnexa and urinary bladder are unremarkable. There is no bowel wall thickening. No perienteric or pericolonic edema. No ascites, abscess, hematoma or acute fluid collection. No pneumatosis or free gas. No focal inflammatory process. Aortoiliac vessels are nonaneurysmal. There are degenerative changes with no acute appearing osseous pathology. IMPRESSION: 1. CTA chest: Negative for PE or other acute chest pathology. 2. CT abdomen/pelvis: Retrocardiac gastric hernia. Nonaneurysmal atherosclerosis. No obstructive features, inflammatory processes or acute abnormality. Dictated by: Dictated on workstation # [id number]
[2022-03-03 23:30] VITALS: BP 121/59
[2022-03-03] MEDS ORDERED: NICOTINE 14 MG (NICODERM) PATCH TD ONE (23:30)
[2022-03-03 23:45] VITALS: BP 108/72
[2022-03-04] VITALS (11 sets, daily range): BP systolic 93–114; BP diastolic 51–75
[2022-03-04] MEDS ORDERED: morphine INJ 4 MG/ML 1 ML (VIAL/SYRINGE) IV PRN
[2022-03-04] MEDS ORDERED: NITROGLYCERIN 0.4 MG SL TABS BTL 25'S SL PRN
[2022-03-04] MEDS ORDERED: ONDANSETRON 4 MG/2 ML (SDV) Z0FRAN IVP PRN
[2022-03-04] MEDS: CATHETER FLUSH 10 ML SYR IVP SCH ×2 (06:15→13:29)
[2022-03-04 06:51] LABS: BASOPHILS # (AUTO) 0.1 10^3/uL (0.0-0.1); BASOPHILS % (AUTO) 1 % (0-10); EOSINOPHILS # (AUTO) 0.3 10^3/uL (0.0-0.3); EOSINOPHILS % (AUTO) 6 % (0-10); HEMATOCRIT 38 % (35-52); HEMOGLOBIN 12.8 g/dL (11.5-16.0); LYMPHOCYTES # (AUTO) 2.7 10^3/uL (1.0-4.0); LYMPHOCYTES % (AUTO) 44 % (12-44); MEAN CORPUSCULAR HEMOGLOBIN 32 pg (25-34); MEAN CORPUSCULAR HGB CONC 34 g/dL (32-36); MEAN CORPUSCULAR VOLUME 94 fL (80-99); MEAN PLATELET VOLUME 10.9 fL (9.0-12.2); MONOCYTES # (AUTO) 0.4 10^3/uL (0.0-1.0); MONOCYTES % (AUTO) 7 % (0-12); NEUTROPHILS # (AUTO) 2.6 10^3/uL (1.8-7.8); NEUTROPHILS % (AUTO) 42 % (42-75); PLATELET COUNT 250 10^3/uL (130-400)
[2022-03-04 07:17] LABS: CHLORIDE 107 MMOL/L (98-107); POTASSIUM 3.9 MMOL/L (3.6-5.0); SODIUM 137 MMOL/L (135-145)
[2022-03-04 07:18] LABS: CALCIUM 8.7 MG/DL (8.5-10.1)
[2022-03-04 07:19] LABS: GLUCOSE 124 MG/DL (70-105); TRIGLYCERIDES 236 MG/DL (<150); VLDL CHOLESTEROL 47 MG/DL (5-40)
[2022-03-04 07:21] LABS: CARBON DIOXIDE 20 MMOL/L (21-32)
[2022-03-04 07:23] LABS: CREATININE SERUM 0.88 MG/DL (0.60-1.30); GFR ESTIMATED 81
[2022-03-04 07:24] LABS: BUN/CREATININE RATIO 9; CHOLESTEROL 175 MG/DL (< 200)
[2022-03-04 07:25] LABS: HDL CHOLESTEROL 30 MG/DL (40-60)
[2022-03-04] MEDS ORDERED: PANTOPRAZOLE 40 MG (PROTONIX) VIAL IV SCH (09:00)
[2022-03-04] MEDS ORDERED: NICOTINE 14 MG (NICODERM) PATCH TD SCH (09:00)
[2022-03-04] MEDS ORDERED: ASPIRIN E.C. 81 MG (ECOTRIN) TAB PO SCH (09:00)
--- NOTE | 2022-03-04 11:31 | History & Physical-Hospitalist ---
History of Present Illness HPI/Chief Complaint Pt a 46-year-old female well-known to me from previous admissions who presented to the emergency department due to chest pain. She has a very significant cardiac history with coronary artery disease status post CABG and multiple stenting. She has continued tobacco use. She presented to the emergency department with chest soreness and shortness of breath. She states it feels similar to her previous episodes where she has gotten the stent. She was found to have 3 negative troponins overnight but has persistent chest pain and was admitted for observation. Her chest pain did improve initially with nitro but now her blood pressure is too low to give anymore. Source: patient Date Seen 03/04/22 Time Seen by a Provider: 11:27 Attending Physician Willem Chamorro DO PCP Admitting Physician: Shonda Davies MD Attending Physician: Shonda Davies MD Referring Physician Date of Admission Mar 03, 2022 at 22:15 Home Medications & Allergies Home Medications Reviewed patient Home Medication Reconciliation performed by pharmacy medication reconciliations gear technician and/or nursing. Patients Allergies have been reviewed. Allergies Allergies Coded Allergies Penicillins (Verified Allergy, Unknown, 05/16/21) Sulfa (Sulfonamide Antibiotics) (Verified Allergy, Unknown, 05/16/21) naproxen (Verified Allergy, Unknown, HIVES, NAUSEA--can take ibuprofen, 05/16/21) Past Jtcnlpl-Zjcoil-Qvsage Hx Patient Social History Tobacco Use?: Yes Tobacco type used: Cigarettes Smoking Status: Current Everyday Smoker Smokeless type used: Sticks Smokeless Tobacco Frequency: Never a User Use of E-Cig and/or Vaping dev: No Substance use?: No Alcohol Use?: No Pt feels they are or have been: No Immunizations Up To Date Date of Influenza Vaccine: May 09, 2021 First/Initial COVID19 Vaccinat: not vaccinated Second COVID19 Vaccination Mark: not vaccinated Tetanus Booster (TDap): Unknown Date of Pneumonia Vaccine: Jun 20, 2013 Seasonal Allergies Seasonal Allergies: No Current Status status: No status: No Advance Directives: No Communicates: Verbally Primary Language: Chinese Preferred Spoken Language: Chinese Is interpretation needed?: No Sensory deficits: Vision impairment Implanted or Applied Medical D: Stents Past Medical History Surgeries: Abdominal, Adenoidectomy, Cardiac, CABG, Coronary Stent, Ear Surgery, Gallbladder, Orthopedic, Tonsillectomy, Tracheostomy Asthma, Chronic Bronchitis, COPD Coronary Artery Disease, Deep Vein Thrombosis, Heart Attack, High Cholesterol, Hypertension Headaches /Migraines, Seizure Disorder Sexually Transmitted Disease: Yes (HERPES) Gastroesophageal Reflux, Esophagitis, Hiatal Hernia, Gall Bladder Disease Arthritis Hypothyroidsim, Diabetes, Non-Insulin dep Chronic Ear Infection Hearing Impairment: Hard of Hearing Cervical Did You Recieve Any Treatments: Yes What Type of Treatment Did You: Surgical Intervention Sleep Difficulties, Anxiety, Suicide Attempts, Depression Blood Disorders: No Adverse Reaction/Blood Tranf: No See Problem List Family Medical History Reviewed Nursing Family Hx Heart Disease SOCIAL HISTORY: -SMOKES AT LEAST 1 PPD -ETOH--DENIES USE -DENIES DRUG USE ADDITIONAL PAST MEDICAL AND PROCEDURAL HISTORY: -FABRICE FUNDOPLICATION -CHOLECYSTECTOMY -TONSILLECTOMY/ADENOIDECTOMY -TRACHEOSTOMY/LATER REMOVAL -PT HAD NSTEMI AND WAS ADMITTED 04/22/20-04/24/20, HAD CARDIAC CATH 04/23/20 AND HAD STENT X 1 TO RCA -PT HAS PREVIOUSLY HAD A CABG IN 2009, MULTIPLE STENTS TO RCA, AND STENT TO CIRCUMFLEX IN THE PAST. CARDIAC CATH 05/24/[address] ROBLES: CONCLUSIONS: 1. Coronary artery disease as detailed above. The left anterior descending and left circumflex arteries have patent stents. An obtuse marginal branch of the left circumflex has a patent aortocoronary graft, this graft had 70% ostial stenosis and was successfully stented with Radha 2.5 x 18 mm stent, deployed at 20 atmospheres. The right coronary artery had 90% proximal stenosis, which went to 50% stenosis following balloon angioplasty. The mid and distal right coronary artery have in-stent occlusion. This is a very long segment of occlusion and attempts at percutaneous intervention to this portion of the vessel were unsuccessful. 2. Mild elevation of left ventricular end-diastolic pressure. DISCUSSION AND RECOMMENDATIONS: Risk factor modification has been advised. Dual antiplatelet therapy is being continued. Because of low blood pressure, she is not a suitable candidate for beta blockers or MORRO inhibitors or angiotensin receptor blockers. Statin therapy is being continued. -CARDIAC CATH 08/14/[address] ALAN: IMPRESSION: 1. Normal central aortic pressure with elevated left ventricular end-diastolic pressure. 2. Patent stent in the mid left anterior descending coronary artery. 3. Total occlusion of the mid right coronary artery within previously placed stents. This is known to be a chronic total occlusion. 4. The left internal mammary artery graft to left anterior descending coronary artery is known to be atretic and was not studied during this procedure. 5. Patent saphenous vein graft to the obtuse marginal branch with a patent stent in the ostium. 6. The patient is known to have normal left ventricular systolic function with an estimated ejection fraction of 60-65% by echocardiogram performed earlier today. 7. The patient may be having angina from small vessel disease. Review of Systems Constitutional: no symptoms reported EENTM: no symptoms reported Respiratory: No cough; short of breath Cardiovascular: chest pain; No edema; Hx of Intervention; No palpitations, No syncope Gastrointestinal: no symptoms reported Genitourinary: no symptoms reported Musculoskeletal: no symptoms reported Skin: no symptoms reported Psychiatric/Neurological: No Symptoms Reported Physical Exam Physical Exam Vital Signs Vital Signs - First Documented 03/03/22 03/03/22 03/03/22 17:25 22:50 23:45 Temp 36.5 Pulse 86 Resp 24 B/P (MAP) 121/75 (90) Pulse Ox 96 O2 Delivery Room Air O2 Flow Rate 2.00 Capillary Refill : Less Than 3 Seconds Height, Weight, BMI Height: 5'8.00" Weight: 189lbs. 0.0oz. 85.864608sr; 39.22 BMI Method:Stated General Appearance: No Apparent Distress, Chronically ill, Obese HEENT: PERRL/EOMI, Moist Mucous Membranes; No Scleral Icterus (L), No Scleral Icterus (R) Neck: Normal Inspection, Supple Respiratory: Chest Non Tender, Lungs Clear, No Accessory Muscle Use, No Respiratory Distress Cardiovascular: Regular Rate, Rhythm, No JVD, No Murmur Gastrointestinal: Normal Bowel Sounds, Non Tender, Soft Extremity: Normal Capillary Refill, No Calf Tenderness, No Pedal Edema Neurologic/Psychiatric: Alert, Oriented x3, Normal Mood/Affect; No Aphasia, No Facial Droop Skin: Normal Color, Warm/Dry Results Results/Procedures Labs Laboratory Tests 03/03/22 17:25 03/04/22 06:45 03/04/22 07:09 Patient resulted labs reviewed. Imaging: Reviewed Imaging Report Imaging [facility], [place] NAME: WAN DA SILVA [facility] REC#: [id number] PT STATUS: REG ER : 1975 PHYSICIAN: MARGARET HDEZ MD ADMIT DATE: 03/03/22/ER Signed Date of Exam:03/03/22 CHEST 1 VIEW, AP/PA ONLY INDICATION: Chest pain. COMPARISON: Study compared with exam 02/07/2022. FINDINGS: Sternal wires are midline. The lungs are clear. No failure, effusion, or pneumothorax. IMPRESSION: No acute appearing abnormality. Dictated by: Dictated on workstation # [id number] Dict: 03/03/221803 Trans: 03/03/221808 [id number] Interpreted by: KURTIS HESTER Electronically signed by: KURTIS HESTER 03/03/221808 [facility], [place] NAME: WAN DA SILVA [facility] REC#: [id number] PT STATUS: REG ER : 1975 PHYSICIAN: HEATH CAMARILLO DO ADMIT DATE: 03/03/22/ER Signed Date of Exam:03/03/22 CT DAMIAN CHEST/NOANG ABD-PELV W INDICATION: Pain, N/V TECHNIQUE: CTA chest, abdomen and pelvis. Thin axial sections through the chest, abdomen and pelvis are obtained following intravenous contrast bolus. Multiplanar MIP images were reconstructed and reviewed. All CT scans use one or more of the following dose optimizing techniques: automated exposure control, MA and/or KvP adjustment based on patient size and exam type or iterative reconstruction. INDICATION: Chest pain. CHEST: Pulmonary arterial branches widely patent. No PE. Aorta is nonaneurysmal. There are slight zones of pulmonary partial atelectasis and a small to moderate retrocardiac gastric hernia. No findings of pulmonary edema or pneumonia. No lung mass. No thoracic adenopathy. No acute chest wall abnormality. Previous sternotomy without dehiscence. ABDOMEN/PELVIS: Gallbladder absent. No biliary dilatation. Spleen, adrenals and pancreas unremarkable. Kidneys unobstructed, nonfocal and nonacute. There is no bowel obstruction. There is a normal appendix. There is no diverticulitis. The uterus, adnexa and urinary bladder are unremarkable. There is no bowel wall thickening. No perienteric or pericolonic edema. No ascites, abscess, hematoma or acute fluid collection. No pneumatosis or free gas. No focal inflammatory process. Aortoiliac vessels are nonaneurysmal. There are degenerative changes with no acute appearing osseous pathology. IMPRESSION: 1. CTA chest: Negative for PE or other acute chest pathology. 2. CT abdomen/pelvis: Retrocardiac gastric hernia. Nonaneurysmal atherosclerosis. No obstructive features, inflammatory processes or acute abnormality. Dictated by: Dictated on workstation # [id number] Dict: 03/03/222052 Trans: 03/03/222113 [facility] [id number] Interpreted by: KURTIS HESTER Electronically signed by: KURTIS HESTER 03/03/222113 Assessment/Plan Admission Diagnosis Chest pain Admission Status: Observation Assessment and Plan Chest pain CAD GERD Tobacco abuse Troponin normal x3 Cardiology consulted Known CAD s/p cabg Defer to Cardiology given significant history of disease Down to 5 cig/day smoking T2DM Levemir Sliding scale HTN HLD COPD Obesity Continue home meds DVT prophylaxis: Lovenox Diagnosis/Problems Diagnosis/Problems (1) S/P CABG (coronary artery bypass graft) Status: Chronic (2) Chest pain Status: Acute (3) Mixed hyperlipidemia (4) Obesity Status: Chronic (5) CAD (coronary artery disease) Status: Acute (6) T2DM (type 2 diabetes mellitus) Status: Chronic (7) COPD (chronic obstructive pulmonary disease) Status: Acute (8) Hypothyroidism Status: Chronic Clinical Quality Measures Smoking Cessation Counseling: Counseling-Symptomatic: 3-10 Minutes MITCHELL LEBRON MD Mar 04, 2022 11:31
--- NOTE | 2022-03-04 12:05 | Discharge Inst-Simple/Standard ---
Discharge Inst-Standard Patient Instructions/Follow Up Plan of Care/Instructions/FU: Please continue to take your medications as written. These follow-up with Dr. Sheehan as scheduled. Please continue to work on quitting smoking. Activity as Tolerated: Yes Discharge Diet: Cardiac Diet Return to The Hospital For: Chest pain, shortness of breath, weakness, if you feel you are getting worse. MITCHELL LEBRON MD Mar 04, 2022 12:05
--- NOTE | 2022-03-04 15:14 | Consultation-Cardiology ---
HPI-Cardiology Cardiology Consultation: Date of Consultation 03/04/22 Time Seen by a Provider: 14:15 Date of Admission Attending Physician Willem Chamorro DO Admitting Physician Admitting Physician: Raine Hernandez MD Attending Physician: Raine Hernandez MD Consulting Physician JIMENA ROBLES MD, MA, FACP, FACC, FSCAI, CCDS Physician requesting Card consult: Dr Ivy HPI: Chief Complaint: Chest discomfort Ms. Champagne is a 46 yr old female admitted to the [facility] on 03/03/22 with c/o CP. She reports yesterday. while watching TV, she developed R and L upper parasternal chest pain that was moderate. She has a chronic, nearly continuous discomfort of the chest, but the one yesterday was somewhat different. The discomfort was a constant. It did not change with movement or with NTG. It lasted many hours and now she feels back to her usual baseline of continuous mild discomfort in the mid chest. She has chronic epigastric tenderness with palpation. She does not report diaphoresis. She has chronic mild to mod BUTT. She reports she has been compliant with her medication regimen. She states she received nitro sublingual in the ED without any change. She received Morphine IV in the ED which provided some relief, but not complete resolution. She denies any LE swelling. She continues to smoke 1/2 PPD of cigs. She denies any street drug usage. Review of Systems-Cardiology Review of Systems Constitutional: malaise, tiredness; No weight loss, No weight gain Eyes: No vision change Ears/Nose/Throat: No ear discharge, No nasal drainage, No recent hearing loss Respiratory: As described under HPI Cardiovascular: As described under HPI Gastrointestinal: No diarrhea, No nausea, No vomiting Genitourinary: No dysuria, No hematuria, No urine frequency changes Musculoskeletal: back pain (chronic) Skin: No rash, No ulcerations Psychiatric/Neurological: No seizure, No focal weakness, No syncope Hematologic: No bleeding abnormalities All Other Systems Reviewed Negative Unless Noted: Yes CPL-Xvbdii-Rdsbjc Hx Patient Social History Smoking Status: Current Everyday Smoker 2nd Hand Smoke Exposure: No Have you traveled recently?: No Alcohol Use?: No Pt feels they are or have been: No Tobacco type used: Cigarettes Immunizations Up To Date Tetanus Booster (TDap): More than 5yrs Date of Pneumonia Vaccine: Jun 20, 2013 Date of Influenza Vaccine: May 09, 2021 Past Medical History PMH As described under Assessment. Family Medical History Family Medical History: Has family h/o of early CAD Allergies and Home Medications Allergies Coded Allergies: Penicillins (Verified Allergy, Unknown, 05/16/21) Sulfa (Sulfonamide Antibiotics) (Verified Allergy, Unknown, 05/16/21) naproxen (Verified Allergy, Unknown, HIVES, NAUSEA--can take ibuprofen, 05/16/21) Patient Home Medication List Home Medication List Reviewed: Yes Acetaminophen (Tylenol Extra Strength) 500 Mg Tablet, 500 MG PO Q8H PRN for PAIN-MILD (1-4), (Reported) Entered as Reported by: DOLORES LARIOS on 08/15/21 1601 Aripiprazole (Abilify) 15 Mg Tablet, 7.5 MG PO DAILY, (Reported) Entered as Reported by: SONJA OH on 06/27/21 1036 Aspirin (Aspirin EC) 81 Mg Tablet.dr, 81 MG PO DAILY, (Reported) Entered as Reported by: SONJA OH on 05/24/21 0959 Atorvastatin Calcium (Atorvastatin Calcium) 80 Mg Tablet, 80 MG PO HS Prescribed by: RAINE HERNANDEZ on 08/16/21 1213 Clopidogrel Bisulfate (Plavix) 75 Mg Tablet, 75 MG PO DAILY, (Reported) Entered as Reported by: SONJA OH on 05/26/21 1059 Eszopiclone (Lunesta) 2 Mg Tablet, 2 MG PO HS, (Reported) Entered as Reported by: DOLORES LARIOS on 08/15/21 1555 Hydroxyzine HCl (Hydroxyzine HCl) 25 Mg Tablet, 25 MG PO BID PRN for ANXIETY, (Reported) Entered as Reported by: SONJA OH on 06/27/21 1036 Metformin HCl (Metformin HCl) 500 Mg Tablet, 500 MG PO DAILY, (Reported) Entered as Reported by: DOLORES LARIOS on 08/15/21 1552 Metoprolol Tartrate (Metoprolol Tartrate) 25 Mg Tablet, 12.5 MG PO BID, (Reported) Entered as Reported by: SONJA OH on 05/26/21 1059 Nitroglycerin (Nitroglycerin) 0.3 Mg Tab.subl, 0.3 MG SL Q5MIN PRN X3 PRN for CHEST PAIN (ANGINA) Prescribed by: RAINE HERNANDEZ on 10/09/21 1302 Ondansetron (Ondansetron Odt) 4 Mg Tab.rapdis, 4 MG PO Q6H PRN for NAUSEA/VOMITING Prescribed by: MARGARET HDEZ on 09/27/21 2231 Pantoprazole Sodium (Protonix) 40 Mg Tablet.dr, 40 MG PO BID Prescribed by: RAINE HERNANDEZ on 12/16/21 1005 Ranolazine (Ranexa) 500 Mg Tab.er.12h, 1,000 MG PO BID Prescribed by: RAINE HERNANDEZ on 08/16/21 1213 Sertraline HCl (Sertraline HCl) 100 Mg Tablet, 100 MG PO HS, (Reported) Entered as Reported by: SONJA OH on 06/27/21 1036 Physical Exam-Cardiology Physical Exam Vital Signs/I&O 03/04/22 03/04/22 03/04/22 03/04/22 04:00 07:00 08:00 08:14 Temp 36.0 36.1 Pulse 72 69 70 Resp 16 16 B/P (MAP) 114/62 (79) 94/61 (72) Pulse Ox 95 98 O2 Delivery Nasal Cannula Room Air Nasal Cannula O2 Flow Rate 2.00 2.00 03/04/22 03/04/22 03/04/22 03/04/22 08:41 11:27 12:46 13:38 Temp 36.1 Pulse 67 72 Resp 16 B/P (MAP) 95/61 (72) 108/58 (75) Pulse Ox 95 O2 Delivery Nasal Cannula Nasal Cannula O2 Flow Rate 2.00 2.00 Capillary Refill : Less Than 3 Seconds Constitutional: AAO x 3, well-developed, well-nourished HEENT: EOMI, hearing is well preserved; No xanthelasmas are seen Neck: carotid pulses are 2 + bilaterally, with good upstrokes Respiratory: No accessory muscle use; other (fair to good, bilateral air entry) Cardiovascular: regular rate-rhythm, S1 and S2, systolic murmur (soft FABIAN at card base) Gastrointestinal: No tender; soft; No guarding, No rebound; audible bowel sounds Extremities: No clubbing, No cyanosis, No significant edema Neurologic/Psychiatric: oriented x 3, other (moves all limbs) Skin: normal color, warm/dry; No rash on exposed areas, No ulcerations on exposed areas Data Review Labs Laboratory Tests 03/03/22 17:25: White Blood Count 8.1, Red Blood Count 4.38, Hemoglobin 14.1, Hematocrit 41, Mean Corpuscular Volume 93, Mean Corpuscular Hemoglobin 32, Mean Corpuscular Hemoglobin Concent 35, Red Cell Distribution Width 12.1, Platelet Count 279, Mean Platelet Volume 10.8, Immature Granulocyte % (Auto) 0, Neutrophils (%) (Auto) 59, Lymphocytes (%) (Auto) 28, Monocytes (%) (Auto) 7, Eosinophils (%) (Auto) 5, Basophils (%) (Auto) 1, Neutrophils # (Auto) 4.8, Lymphocytes # (Auto) 2.3, Monocytes # (Auto) 0.5, Eosinophils # (Auto) 0.4H, Basophils # (Auto) 0.1, Immature Granulocyte # (Auto) 0.0, Prothrombin Time 12.5, INR Comment 0.9, Activated Partial Thromboplast Time 31, Sodium Level 136, Potassium Level 4.2, Chloride Level 104, Carbon Dioxide Level 21, Anion Gap 11, Blood Urea Nitrogen 9, Creatinine 1.01, Estimat Glomerular Filtration Rate 69, BUN/Creatinine Ratio 9, Glucose Level 296H, Calcium Level 8.9, Corrected Calcium 9.0, Magnesium Level 1.7, Total Bilirubin 0.7, Aspartate Amino Transf (AST/SGOT) 17, Alanine Aminotransferase (ALT/SGPT) 17, Alkaline Phosphatase 116, Myoglobin 40.1, Troponin I < 0.028, B-Type Natriuretic Peptide 46.8, Total Protein 6.9, Albumin 3.9, Lipase 49 03/03/22 21:19: Troponin I < 0.028 03/04/22 06:45: White Blood Count 6.0, Red Blood Count 4.06, Hemoglobin 12.8, Hematocrit 38, Mean Corpuscular Volume 94, Mean Corpuscular Hemoglobin 32, Mean Corpuscular Hemoglobin Concent 34, Red Cell Distribution Width 12.4, Platelet Count 250, Ignacia n Platelet Volume 10.9, Immature Granulocyte % (Auto) 0, Neutrophils (%) (Auto) 42, Lymphocytes (%) (Auto) 44, Monocytes (%) (Auto) 7, Eosinophils (%) (Auto) 6, Basophils (%) (Auto) 1, Neutrophils # (Auto) 2.6, Lymphocytes # (Auto) 2.7, Monocytes # (Auto) 0.4, Eosinophils # (Auto) 0.3, Basophils # (Auto) 0.1, Immature Granulocyte # (Auto) 0.0 03/04/22 07:09: Sodium Level 137, Potassium Level 3.9, Chloride Level 107, Carbon Dioxide Level 20L, Anion Gap 10, Blood Urea Nitrogen 8, Creatinine 0.88, Estimat Glomerular Filtration Rate 81, BUN/Creatinine Ratio 9, Glucose Level 124H, Calcium Level 8.7, Troponin I < 0.028, Triglycerides Level 236H, Cholesterol Level 175, LDL Cholesterol Direct 116, VLDL Cholesterol 47H, HDL Cholesterol 30L Laboratory Tests 03/03/22 17:25 03/04/22 06:45 03/04/22 07:09 A/P-Cardiology Assessment/Admission Diagnosis Chest pain - undetermined etiology - no evidence of ACS CAD: - H/o CABG in 2009. -Last CO on 04/23/20 due to mid-vessel, instent occlusion of RCA, treated with ballon angioplasty and stenting with Xience Radha 2.25x33 stent that was post- dilated to 3 mm kevin (Dr Bartlett). LAD had mild instent restenosis in prox LAD, LCX had patent stent, LVEDP 32 mmHg, preserved LV function, patent SVG to a diag, atretic LOPEZ to LAD. - MPI of 05-17-21: Inferior wall myocardial infarction with a small amount of ted-infarct ischemia. Inferior wall hypokinesis. Well preserved global left ventricular systolic function with ejection fraction of 54%. - Echo of 04/23/20: LVEF 55-60%, mild dil LA,mild to mod MR, PASP 25-30 mmHg - Card cath on 05/24/21: patent stents in the L cor system, occluded/atretic LOPEZ to LAD, patent SVG to an OM with 70% ostial stenosis that was successfully sten camille on 05/24/21 with Radha 2.5 x 18 mm stent (deployed at 20 [place]), midvessel instent occlusion of RCA and 90% proximal instent stenosis of RCA, prox RCA stenosis reduced to 50% with balloon angioplasty, distal RCA occlusion could not be opened up, LVEDP 17 mmHg - Cardiac cath of 08-15-[address] Jay Normal central aortic pressure with elevated left ventricular end-diastolic pressure. Patent stent in the mid left anterior descending coronary artery. Total occlusion of the mid right coronary artery within previously placed stents. This is known to be a chronic total oc clusion. The left internal mammary artery graft to left anterior descending coronary artery is known to be atretic and was not studied during this procedure. Patent saphenous vein graft to the obtuse marginal branch with a patent stent in the ostium. COPD - managed by PCP GI - Mod hiatal hernia seen on CT of chest on 02-03-21 and again on CTA of the chest on 12-16-21 - H/o erosive esophagitis Chronically abnormal ECG (shows IMI) Tobaccoism - cessation advised Hyperlipidemia - being treated with atorvastatin - managed by PCP History of maturity onset diabetes mellitus. - managed by PCP Obesity - with a body mass index of approx 36 Body habitus and daytime somnolence is suggestive of REINA - sleep studies advised Discussion and Recomendations * Advised to quit smoking * Cor risk factor mod discussed * Advised compliance with previous cardiac regimen * Advised eval for HH * Return to ER in case of new or recurrent symptoms * Ok to d/c from cardiac standpoint Clinical Quality Measures Smoking Cessation Counseling: Counseling-Symptomatic: 3-10 Minutes JIMENA ROBLES MD [facility] Mar 04, 2022 15:14
--- NOTE | 2022-03-04 15:51 | CONSULTATION REPORT ---
DATE OF SERVICE: 03/04/2022 ATTENDING PRIMARY CARE:PHYSICIAN: Dr. Willem Chamorro. HISTORY OF PRESENT ILLNESS: The patient is a 46-year-old female, who presented to the Emergency Department yesterday evening with complaints of substernal to left-sided chest pain that started around 5 o'clock in the evening and reports that this was radiating towards her left shoulder and down her left arm. She does have a history of coronary artery bypass graft as well as coronary artery disease as well as several cardiac catheterizations and stents placed. She did report that she took two doses of nitroglycerin, which did not relieve her symptoms and then reports that she did call EMS. She also reports taking an aspirin as well as her Plavix yesterday in the morning. Her last cardiac catheterization was in 07/2021 and reports that she did have stable coronary artery disease. She has a history of hypertension, hyperlipidemia, diabetes, and does smoke about half a pack of cigarettes per day, but denies any alcohol or recreational drug use. She did undergo a workup in the emergency room and was found to have small to moderate hiatal hernia. On today's visit, she reports that she still has some mild chest discomfort; however, her cardiac workup has been negative thus far. She also reports some mild nausea, but no vomiting. She denies any heartburn or reflux, but does report that she does take Protonix as well as Pepcid at home. She does also report that she has had some kind of esophageal surgery in the past, which she reports was to remove adhesions. She reports that it has been years since she has had an upper endoscopy. She denies any hematemesis or any coffee ground emesis. PAST MEDICAL HISTORY: Hypercholesterolemia, coronary artery disease, COPD, type 2 diabetes, hypertension, gastroesophageal reflux disease, asthma, chronic bronchitis, myocardial infarction, DVT, migraines, seizures, history of cervical cancer, herpes, hiatal hernia, arthritis, hypothyroidism, anxiety, and depression. PAST SURGICAL HISTORY: Cholecystectomy, tonsillectomy, adenoidectomy, tracheostomy with later removal, coronary artery bypass graft in 2009, cardiac catheterization with stents placed, and Geri fundoplication. ALLERGIES: PENICILLIN, SULFA, and NAPROXEN. MEDICATIONS: Tylenol 500 mg q.8 hours p.r.n., Abilify 15 mg to 7.5 mg daily, aspirin 81 mg daily, atorvastatin 80 mg at bedtime, Plavix 75 mg daily, Lunesta 2 mg at bedtime, hydroxyzine 25 mg b.i.d. p.r.n., metformin 500 mg daily, metoprolol 25 mg half tablet b.i.d., nitroglycerin p.r.n., Zofran 4 mg q.6 hours p.r.n., Protonix 40 mg b.i.d., Ranexa 1000 mg b.i.d., sertraline 100 mg at bedtime, and Pepcid daily. SOCIAL HISTORY: Positive for tobacco smoke. Negative for alcohol. FAMILY HISTORY: Noncontributory. REVIEW OF SYSTEMS: This is a well-nourished, obese female, in no acute distress. She is not experiencing any shortness of breath or difficulty in breathing. No diaphoresis. She does report left-sided chest pain. She does report mild nausea, but no vomiting or abdominal pain. No diarrhea or constipation. No red blood per rectum. No dark tarry stools. No fever or chills. No recent inadvertent weight loss. All other review of systems negative. PHYSICAL EXAMINATION: VITAL SIGNS: Blood pressure 95/61, respirations 16, pulse 67, temperature 36.1 degrees Celsius, and pulse ox is 95% on 2 liters nasal cannula. CHEST: Clear. Good breath sounds bilaterally. HEART: Regular and no murmurs. EXTREMITIES: No lower extremity edema. Negative Homans sign. HEENT: No scleral icterus. NECK: No cervical lymphadenopathy. ABDOMEN: Soft and nondistended. There is some mild tenderness with deep palpation in the epigastric region. No palpable masses. No organomegaly. SKIN: Warm, dry and pink. NEUROLOGIC: Awake, alert and oriented x3. ASSESSMENT AND PLAN: A 46-year-old female with left-sided chest pain, most likely secondary to symptomatic gastroesophageal reflux disease. Cardiac workup has been negative thus far. She does have risk factors for gastroesophageal reflux disease including tobacco use as well as obesity and has a hiatal hernia. At this time, we will proceed with medical management with Protonix. She is instructed that she will need to proceed with tobacco cessation as well as the avoidance of any spicy, greasy, acidic, caffeine, and alcohol products. She is instructed that she can follow up with us on an outpatient basis and can proceed with an EGD at that time. She can be discharged when she has been cleared by cardiology. Job ID: [id number] DocumentID: [id number] Dictated Date: 03/04/2022 12:04:06 Reinsurance Accountant Date: 03/04/2022 15:50:36 Dictated By: SIDNEY HOPKINS APRN
[2022-03-04] MEDS ORDERED: inSUlin ASPART (NovoLOG) 1 UNIT/0.01 ML (CHARGE PER UNIT) SC SCH (16:00)
[2022-03-04] MEDS ORDERED: PATCH REMOVAL TP SCH (21:00)
--- NOTE | 2022-03-08 12:45 | Physician Query-Final Dx ---
Final Diagnosis Give Final Diagnosis Please give Final Diagnosis DEVENDRA,AugMar 08, 2022 12:45
== END 2022-03-04 15:27 | disposition home or self-care (01) ==
LOC: EDUNIT# 17:18 → ER 17:19 → 4TH 22:15 → UNDOADMOB 22:15 → 4TH 23:11 → UNDODISOB 03-04 16:30
PROVIDERS: ADMIT Internal Medicine; ATTEND Internal Medicine
DX: I25.10 Atherosclerotic heart disease of native coronary artery without angina pectoris (principal); K44.9 Diaphragmatic hernia without obstruction or gangrene
CPT/HCPCS: 71045; 71275; 74177; 80048; 80053; 80061; 82947; 83690; 83735; 83874; 83880; 84484 ×2; 85025 ×2; 85610; 85730; 93005 ×2; 93041; 96375; 96376; 99284; G0378; 36415

== ENCOUNTER 2022-03-27 19:31 | Emergency (ER) | payer MEDICARE ==
[~2022-03-27] VITALS: Ht 172.7 cm; Wt 114.5 kg
[2022-03-27 19:45] LABS: BILIRUBIN,URINE NEGATIVE (NEGATIVE); CLARITY,URINE CLEAR; COLOR,URINE YELLOW; GLUCOSE, URINE (UA) NEGATIVE (NEGATIVE); KETONES,URINE NEGATIVE (NEGATIVE); LEUKOCYTE ESTERASE ,URINE NEGATIVE (NEGATIVE); NITRITE,URINE NEGATIVE (NEGATIVE); PROTEIN,URINE NEGATIVE (NEGATIVE)
--- NOTE | 2022-03-27 19:51 | ED GI ---
General Stated Complaint: ABD PAIN History of Present Illness Date Seen by Provider: Mar 27, 2022 Time Seen by Provider: 19:30 Initial Comments 46-year-old female presents for left upper quadrant abdominal pain that is been present since 1699 today. She was seen at [facility] and referred here. She denies any vomiting but mild nausea. She has not taken any pain medicine for her symptoms.She had a small meal at 1500. Timing/Duration: 4-6 Hours Severity/Quality: Mild Location: LUQ Radiation: No Radiation Associated Symptoms: Denies Symptoms (MELANIE SAEZ) Allergies and Home Medications Allergies Coded Allergies: Penicillins (Verified Allergy, Unknown, 05/16/21) Sulfa (Sulfonamide Antibiotics) (Verified Allergy, Unknown, 05/16/21) naproxen (Verified Allergy, Unknown, HIVES, NAUSEA--can take ibuprofen, 05/16/21) Patient Home Medication List Home Medication List Reviewed: Yes (MELANIE SAEZ) Acetaminophen (Tylenol Extra Strength) 500 Mg Tablet, 500 MG PO Q8H PRN for PAIN-MILD (1-4), (Reported) Entered as Reported by: DOLORES LARIOS on 08/15/21 1601 Aripiprazole (Abilify) 15 Mg Tablet, 7.5 MG PO DAILY, (Reported) Entered as Reported by: SONJA OH on 06/27/21 1036 Aspirin (Aspirin EC) 81 Mg Tablet.dr, 81 MG PO DAILY, (Reported) Entered as Reported by: SONJA OH on 05/24/21 0959 Atorvastatin Calcium (Atorvastatin Calcium) 80 Mg Tablet, 80 MG PO HS Prescribed by: RAINE HERNANDEZ on 08/16/21 1213 Clopidogrel Bisulfate (Plavix) 75 Mg Tablet, 75 MG PO DAILY, (Reported) Entered as Reported by: SONJA OH on 05/26/21 1059 Eszopiclone (Lunesta) 2 Mg Tablet, 2 MG PO HS, (Reported) Entered as Reported by: DOLORES LARIOS on 08/15/21 1555 Hydroxyzine HCl (Hydroxyzine HCl) 25 Mg Tablet, 25 MG PO BID PRN for ANXIETY, (Reported) Entered as Reported by: SONJA OH on 06/27/21 1036 Metformin HCl (Metformin HCl) 500 Mg Tablet, 500 MG PO DAILY, (Reported) Entered as Reported by: DOLORES LARIOS on 08/15/21 1552 Metoprolol Tartrate (Metoprolol Tartrate) 25 Mg Tablet, 12.5 MG PO BID, (Reported) Entered as Reported by: SONJA OH on 05/26/21 1059 Nitroglycerin (Nitroglycerin) 0.3 Mg Tab.subl, 0.3 MG SL Q5MIN PRN X3 PRN for CHEST PAIN (ANGINA) Prescribed by: RAINE HERNANDEZ on 10/09/21 1302 Ondansetron (Ondansetron Odt) 4 Mg Tab.rapdis, 4 MG PO Q6H PRN for NAUSEA/VOMITING Prescribed by: MARGARET HDEZ on 09/27/21 2231 Pantoprazole Sodium (Protonix) 40 Mg Tablet.dr, 40 MG PO BID Prescribed by: RAINE HERNANDEZ on 12/16/21 1005 Ranolazine (Ranexa) 500 Mg Tab.er.12h, 1,000 MG PO BID Prescribed by: RAINE HERNANDEZ on 08/16/21 1213 Sertraline HCl (Sertraline HCl) 100 Mg Tablet, 100 MG PO HS, (Reported) Entered as Reported by: SONJA OH on 06/27/21 1036 Review of Systems Review of Systems Constitutional: no symptoms reported, see HPI EENTM: No Symptoms Reported, See HPI Respiratory: No Symptoms Reported, See HPI Cardiovascular: No Symptoms Reported, See HPI Gastrointestinal: See HPI, Abdominal Pain (MELANIE SAEZ) All Other Systems Reviewed Negative Unless Noted: Yes (MELANIE SAEZ) Past Yviyoxb-Grsbcg-Qablco Hx Immunizations Up To Date Tetanus Booster (TDap): More than 5yrs First/Initial COVID19 Vaccinat: not vaccinated Second COVID19 Vaccination Mark: not vaccinated Third COVID19 Vaccination Date: not vaccinated (MELANIE SAEZ) Seasonal Allergies Seasonal Allergies: No (MELANIE SAEZ) Past Medical History Surgery/Hospitalization HX: CABG 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) Sexually Transmitted Disease: Yes (HERPES) Genitourinary: No Gastrointestinal: Yes (S/P FABRICE FUNDOPLICATION) Gastroesophageal Reflux, Esophagitis, Hiatal Hernia, Gall Bladder Disease Musculoskeletal: Yes Arthritis Endocrine: Yes Hypothyroidsim, Diabetes, Non-Insulin dep HEENT: Yes Chronic Ear Infection Hearing Impairment: Hard of Hearing Cancer: Yes Cervical Did You Recieve Any Treatments: Yes What Type of Treatment Did You: Surgical Intervention Psychosocial: Yes Sleep Difficulties, Anxiety, Suicide Attempts, Depression Integumentary: No Blood Disorders: No Adverse Reaction/Blood Tranf: No (MELANIE SAEZ) Family Medical History Reviewed Nursing Family Hx (MELANIE SAEZ) Heart Disease SEE OLD CHARTS FOR DETAILS (MELANIE SAEZ) Physical Exam Vital Signs Vital Signs - First Documented 03/27/22 19:38 Temp 36.8 Pulse 86 Resp 20 B/P (MAP) 124/67 (86) Pulse Ox 96 O2 Delivery Room Air (DORA ROMERO MD) Vital Signs Capillary Refill : (MELANIE SAEZ) Height/Weight/BMI Height: 5'8.00" Weight: 189lbs. 0.0oz. 85.311096em; 39.22 BMI Method:Stated General Appearance: WD/WN, no apparent distress, obese HEENT: PERRL/EOMI, normal ENT inspection Neck: non-tender, full range of motion, supple, normal inspection Respiratory: chest non-tender, lungs clear Cardiovascular: normal peripheral pulses, regular rate, rhythm Gastrointestinal: normal bowel sounds, soft, distended; No guarding, No rebound; tenderness (trace, LUQ) Neurologic/Psychiatric: no motor/sensory deficits, alert, normal mood/affect, oriented x 3 (MELANIE SAEZ) Progress/Results/Core Measures Results/Orders Lab Results Laboratory Tests Test 03/27/22 19:40 03/27/22 19:50 Range/Units Urine Color YELLOW Urine Clarity CLEAR Urine pH 6.0 5-9 Urine Specific [place] <=1.005 1.016-1.022 Urine Protein NEGATIVE NEGATIVE Urine Glucose (UA) NEGATIVE NEGATIVE Urine Ketones NEGATIVE NEGATIVE Urine Nitrite NEGATIVE NEGATIVE Urine Bilirubin NEGATIVE NEGATIVE Urine Urobilinogen 0.2 < = 1.0 MG/DL Urine Leukocyte Esterase NEGATIVE NEGATIVE Urine RBC (Auto) NEGATIVE NEGATIVE Urine RBC NONE /HPF Urine WBC NONE /HPF Urine Squamous Epithelial Cells 10-25 H /HPF Urine Crystals NONE /LPF Urine Bacteria TRACE /HPF Urine Casts NONE /LPF Urine Mucus NEGATIVE /LPF Urine Culture Indicated NO White Blood Count 8.3 4.3-11.0 10^3/uL Red Blood Count 4.40 3.80-5.11 10^6/uL Hemoglobin 14.0 11.5-16.0 g/dL Hematocrit 40 35-52 % Mean Corpuscular Volume 91 80-99 fL Mean Corpuscular Hemoglobin 32 25-34 pg Mean Corpuscular Hemoglobin Concent 35 32-36 g/dL Red Cell Distribution Width 12.4 10.0-14.5 % Platelet Count 272 130-400 10^3/uL Mean Platelet Volume 10.2 9.0-12.2 fL Immature Granulocyte % (Auto) 0 % Neutrophils (%) (Auto) 49 42-75 % Lymphocytes (%) (Auto) 40 12-44 % Monocytes (%) (Auto) 6 0-12 % Eosinophils (%) (Auto) 4 0-10 % Basophils (%) (Auto) 0 0-10 % Neutrophils # (Auto) 4.1 1.8-7.8 10^3/uL Lymphocytes # (Auto) 3.3 1.0-4.0 10^3/uL Monocytes # (Auto) 0.5 0.0-1.0 10^3/uL Eosinophils # (Auto) 0.3 0.0-0.3 10^3/uL Basophils # (Auto) 0.0 0.0-0.1 10^3/uL Immature Granulocyte # (Auto) 0.0 0.0-0.1 10^3/uL Sodium Level 138 135-145 MMOL/L Potassium Level 4.0 3.6-5.0 MMOL/L Chloride Level 104 98-107 MMOL/L Carbon Dioxide Level 20 L 21-32 MMOL/L Anion Gap 14 5-14 MMOL/L Blood Urea Nitrogen 14 7-18 MG/DL Creatinine 0.89 0.60-1.30 MG/DL Estimat Glomerular Filtration Rate 80 BUN/Creatinine Ratio 16 Glucose Level 192 H 70-105 MG/DL Calcium Level 9.1 8.5-10.1 MG/DL Corrected Calcium 9.2 8.5-10.1 MG/DL Total Bilirubin 0.8 0.1-1.0 MG/DL Aspartate Amino Transf (AST/SGOT) 14 5-34 U/L Alanine Aminotransferase (ALT/SGPT) 20 0-55 U/L Alkaline Phosphatase 122 40-136 U/L C-Reactive Protein High Sensitivity 0.14 0.00-0.50 MG/DL Total Protein 6.9 6.4-8.2 GM/DL Albumin 3.9 3.2-4.5 GM/DL Amylase Level 38 25-125 U/L Lipase 31 8-78 U/L (DORA ROMERO MD) Vital Signs/I&O 03/27/22 03/27/22 19:38 20:48 Temp 36.8 Pulse 86 81 Resp 20 16 B/P (MAP) 124/67 (86) 127/63 Pulse Ox 96 99 O2 Delivery Room Air Room Air (DORA ROMERO MD) Progress Progress Note : Time: 19:30 Progress Note Patient seen and evaluated, will obtain labs and give Zofran 8 mg IV. 2004 patient taking ice chips, reports improvement in nausea. 2029 labs all within normal limits, patient reports improvement. Discharge instructions return precautions reviewed. (MELANIE SAEZ) Departure Impression Primary Impression: Abdominal pain Qualified Codes: R10.12 - Left upper quadrant pain Additional Impression: Nausea alone Disposition: HOME, SELF-CARE Condition: Improved Departure-Patient Inst. Decision time for Depature: 20:30 (MELANIE SAEZ) Referrals: EDWAR CHAMORRO DO (PCP/Family) Primary Care Physician Patient Instructions: Severe Abdominal Pain, Adult (DC) Add. Discharge Instructions: Clear liquid diet for the next 4 to 6 hours and then bland diet as tolerated. Use the Zofran as needed for nausea. Follow-up with Dr. Chamorro tomorrow if symptoms are not improving or worsen. Return to the emergency department for new, urgent healthcare needs. ATTENDING PHYSICIAN NOTE: I was physically present as attending physician in the emergency department during the care of this patient, but I was not directly involved in the decision making or delivery of care for this patient. (DORA ROMERO MD) Copy Copies To 1: EDWAR CHAMORRO AMY ARNP Mar 27, 2022 19:51 DORA ROMERO MD Mar 28, 2022 05:09
[2022-03-27] MEDS ORDERED: ONDANSETRON 4 MG/2 ML (SDV) Z0FRAN IVP STA (19:52)
[2022-03-27 19:58] LABS: BASOPHILS % (AUTO) 0 % (0-10); EOSINOPHILS # (AUTO) 0.3 10^3/uL (0.0-0.3); EOSINOPHILS % (AUTO) 4 % (0-10); HEMATOCRIT 40 % (35-52); LYMPHOCYTES # (AUTO) 3.3 10^3/uL (1.0-4.0); LYMPHOCYTES % (AUTO) 40 % (12-44); MEAN CORPUSCULAR HEMOGLOBIN 32 pg (25-34); MEAN CORPUSCULAR HGB CONC 35 g/dL (32-36); MEAN CORPUSCULAR VOLUME 91 fL (80-99); MEAN PLATELET VOLUME 10.2 fL (9.0-12.2); MONOCYTES # (AUTO) 0.5 10^3/uL (0.0-1.0); MONOCYTES % (AUTO) 6 % (0-12); NEUTROPHILS # (AUTO) 4.1 10^3/uL (1.8-7.8); NEUTROPHILS % (AUTO) 49 % (42-75); PLATELET COUNT 272 10^3/uL (130-400); WHITE BLOOD COUNT 8.3 10^3/uL (4.3-11.0)
[2022-03-27 20:02] LABS: BACTERIA,URINE TRACE /HPF
[2022-03-27 20:33] LABS: ALBUMIN 3.9 GM/DL (3.2-4.5); BILIRUBIN,TOTAL 0.8 MG/DL (0.1-1.0); CALCIUM 9.1 MG/DL (8.5-10.1); CREATININE SERUM 0.89 MG/DL (0.60-1.30); TOTAL PROTEIN 6.9 GM/DL (6.4-8.2)
[2022-03-27] MEDS ORDERED: RX-ONDANSETRON 4 MG ODT (ZOFRAN) PPK #4 PO STA (20:37)
[2022-03-27 20:48] VITALS: BP 127/63
== END 2022-03-27 20:48 | disposition home or self-care (01) ==
LOC: EDUNIT# 19:31 → ER 19:33
DX: R10.12 Left upper quadrant pain (principal); R11.0 Nausea; E66.9 Obesity, unspecified; Z90.49 Acquired absence of other specified parts of digestive tract; Z68.39 Body mass index [BMI] 39.0-39.9, adult; Z28.310 Unvaccinated for COVID-19
CPT/HCPCS: 36415; 80053; 81000; 82150; 83690; 84703; 85025; 86141; 99284

== ENCOUNTER 2022-04-09 19:03 | Observation (INO) | payer MEDICARE, MEDICAID ==
[~2022-04-09] VITALS: Ht 172.2 cm; Wt 113.6 kg
[2022-04-09 19:40] LABS: BASOPHILS # (AUTO) 0.1 10^3/uL (0.0-0.1); BASOPHILS % (AUTO) 1 % (0-10); EOSINOPHILS # (AUTO) 0.3 10^3/uL (0.0-0.3); EOSINOPHILS % (AUTO) 4 % (0-10); HEMATOCRIT 42 % (35-52); HEMOGLOBIN 14.6 g/dL (11.5-16.0); LYMPHOCYTES # (AUTO) 3.2 10^3/uL (1.0-4.0); LYMPHOCYTES % (AUTO) 40 % (12-44); MEAN CORPUSCULAR HEMOGLOBIN 32 pg (25-34); MEAN CORPUSCULAR HGB CONC 35 g/dL (32-36); MEAN CORPUSCULAR VOLUME 92 fL (80-99); MEAN PLATELET VOLUME 10.6 fL (9.0-12.2); MONOCYTES # (AUTO) 0.7 10^3/uL (0.0-1.0); MONOCYTES % (AUTO) 9 % (0-12); NEUTROPHILS # (AUTO) 3.8 10^3/uL (1.8-7.8); NEUTROPHILS % (AUTO) 47 % (42-75); PLATELET COUNT 312 10^3/uL (130-400); WHITE BLOOD COUNT 8.1 10^3/uL (4.3-11.0)
[2022-04-09] MEDS ORDERED: ONDANSETRON 4 MG/2 ML (SDV) Z0FRAN IVP ONE ×2 (19:45→23:30)
[2022-04-09 19:46] LABS: INR 0.9 (0.8-1.4)
[2022-04-09 19:52] LABS: BILIRUBIN,TOTAL 1.3 MG/DL (0.1-1.0); CALCIUM 9.1 MG/DL (8.5-10.1); CREATININE SERUM 1.07 MG/DL (0.60-1.30); MAGNESIUM 1.7 MG/DL (1.6-2.4); POTASSIUM 3.9 MMOL/L (3.6-5.0); TOTAL PROTEIN 6.9 GM/DL (6.4-8.2)
[2022-04-09] MEDS: NITROGLYCERIN 0.4 MG SL TABS BTL 25'S SL PRN ×2 (20:32→20:52)
--- NOTE | 2022-04-09 20:48 | Diagnostic Imaging Report ---
INDICATION: Chest pain. TECHNIQUE: Single view chest 8:20 PM. CORRELATION STUDY: 03/03/2022. FINDINGS: Poststernotomy change. Heart size and mediastinum are stable. Vasculature overall appears to be likely within normal limits. The lungs are clear with no consolidating infiltrate. There is no significant effusion or pneumothorax. IMPRESSION: Poststernotomy change. Negative for acute cardiopulmonary abnormality. Dictated by: Dictated on workstation # [id number]
[2022-04-09] MEDS ORDERED: LIDOCAINE 2% VISCOUS 15 ML UDC PO ONE (23:30)
[2022-04-09] MEDS ORDERED: ANTACID SUSP 30 ML UDC (MYLANTA) PO ONE (23:30)
[2022-04-10] VITALS (11 sets, daily range): BP systolic 101–135; BP diastolic 66–87
[2022-04-10] MEDS ORDERED: morphine INJ 10 MG/ML 1ML (SYR OR VIAL) IVP STA ×2 (00:29→03:08)
--- NOTE | 2022-04-10 00:29 | ED Chest Pain ---
General Chief Complaint: Chest Pain Stated Complaint: CP Nursing Triage Note: PT ARRIVAL TO ER VIA EMS WITH COMPLAINT OF CHEST PAIN X1 HOUR. PT STATES THAT SHE KNOWS SHE HAS A HIATAL HERNIA BUT DOESN'T BELIEVE THATS THE CAUSE. PT STATES THAT SHE WAS AT REST WHEN PAIN STARTED. PAIN AT A 5/10 AND DESCRIBED A HEAVINESS. PT GIVEN 4 BABY ASA AUTOMOTIVE CONSULTANT AND 1 HOME NITRO. PAIN HAS IMPROVED AUTOMOTIVE CONSULTANT. Source: patient, old records Exam Limitations: no limitations History of Present Illness Date Seen by Provider: Apr 09, 2022 Time Seen by Provider: 19:29 Initial Comments This 47-year-old woman with history of coronary artery disease and CABG presents to the emergency room with central sternal chest pain and pain that radiates into the left arm and hand with associated numbness. Pain started about 1830. She reports it is reminiscent of prior cardiac pain before having stents placed. She was lying in bed watching TV at onset. Aspirin was administered by EMS. She took a dose of nitroglycerin at home which did not help. She denies other associated symptoms at this time. Dr. Chamorro is her primary care provider and Dr. 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 She had heart caths as recently as last year. She reports quitting smoking 8 days ago on Chantix. Allergies and Home Medications Allergies Coded Allergies: Penicillins (Verified Allergy, Unknown, 05/16/21) Sulfa (Sulfonamide Antibiotics) (Verified Allergy, Unknown, 05/16/21) naproxen (Verified Allergy, Unknown, HIVES, NAUSEA--can take ibuprofen, 05/16/21) Patient Home Medication List Home Medication List Reviewed: Yes Acetaminophen (Tylenol Extra Strength) 500 Mg Tablet, 500 MG PO Q8H PRN for PAIN-MILD (1-4), (Reported) Entered as Reported by: DOLORES LARIOS on 08/15/21 1601 Aripiprazole (Abilify) 15 Mg Tablet, 7.5 MG PO DAILY, (Reported) Entered as Reported by: SONJA OH on 06/27/21 1036 Aspirin (Aspirin EC) 81 Mg Tablet.dr, 81 MG PO DAILY, (Reported) Entered as Reported by: SONJA OH on 05/24/21 0959 Atorvastatin Calcium (Atorvastatin Calcium) 80 Mg Tablet, 80 MG PO HS Prescribed by: RAINE HERNANDEZ on 08/16/21 1213 Clopidogrel Bisulfate (Plavix) 75 Mg Tablet, 75 MG PO DAILY, (Reported) Entered as Reported by: SONJA OH on 05/26/21 1059 Eszopiclone (Lunesta) 2 Mg Tablet, 2 MG PO HS, (Reported) Entered as Reported by: DOLORES LARIOS on 08/15/21 1555 Hydroxyzine HCl (Hydroxyzine HCl) 25 Mg Tablet, 25 MG PO BID PRN for ANXIETY, (Reported) Entered as Reported by: SONJA OH on 06/27/21 1036 Metformin HCl (Metformin HCl) 500 Mg Tablet, 500 MG PO DAILY, (Reported) Entered as Reported by: DOLORES LARIOS on 08/15/21 1552 Metoprolol Tartrate (Metoprolol Tartrate) 25 Mg Tablet, 12.5 MG PO BID, (Reported) Entered as Reported by: SONJA OH on 05/26/21 1059 Nitroglycerin (Nitroglycerin) 0.3 Mg Tab.subl, 0.3 MG SL Q5MIN PRN X3 PRN for CHEST PAIN (ANGINA) Prescribed by: RAINE HERNANDEZ on 10/09/21 1302 Ondansetron (Ondansetron Odt) 4 Mg Tab.rapdis, 4 MG PO Q6H PRN for NAUSEA/VOMITING Prescribed by: MARGARET HDEZ on 09/27/21 2231 Pantoprazole Sodium (Protonix) 40 Mg Tablet.dr, 40 MG PO BID Prescribed by: RAINE HERNANDEZ on 12/16/21 1005 Ranolazine (Ranexa) 500 Mg Tab.er.12h, 1,000 MG PO BID Prescribed by: RAINE HERNANDEZ on 08/16/21 1213 Sertraline HCl (Sertraline HCl) 100 Mg Tablet, 100 MG PO HS, (Reported) Entered as Reported by: SONJA OH on 06/27/21 1036 Review of Systems Review of Systems Constitutional: no symptoms reported EENTM: No Symptoms Reported Respiratory: No Symptoms Reported Cardiovascular: See HPI Gastrointestinal: No Symptoms Reported Genitourinary: No Symptoms Reported Musculoskeletal: no symptoms reported Skin: no symptoms reported Psychiatric/Neurological: No Symptoms Reported Endocrine: No Symptoms Reported Past Utdiztp-Dlyivi-Gqyotx Hx Patient Social History Tobacco Use?: No Smoking Status: Former Smoker Use of E-Cig and/or Vaping dev: No Substance use?: No Alcohol Use?: No Pt feels they are or have been: No Immunizations Up To Date Tetanus Booster (TDap): More than 5yrs Influenza Vaccine Up-to-Date: Yes; Up-to-Date First/Initial COVID19 Vaccinat: not vaccinated Second COVID19 Vaccination Mark: not vaccinated Third COVID19 Vaccination Date: not vaccinated Seasonal Allergies Seasonal Allergies: No Past Medical History Surgery/Hospitalization HX: CABG 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) Sexually Transmitted Disease: Yes (HERPES) Genitourinary: No Gastrointestinal: Yes (S/P FABRICE FUNDOPLICATION) Gastroesophageal Reflux, Esophagitis, Hiatal Hernia, Gall Bladder Disease Musculoskeletal: Yes Arthritis Endocrine: Yes Hypothyroidsim, Diabetes, Non-Insulin dep HEENT: Yes Chronic Ear Infection Hearing Impairment: Hard of Hearing Cancer: Yes Cervical Did You Recieve Any Treatments: Yes What Type of Treatment Did You: Surgical Intervention Psychosocial: Yes Sleep Difficulties, Anxiety, Suicide Attempts, Depression Integumentary: No Blood Disorders: No Adverse Reaction/Blood Tranf: No Family Medical History Heart Disease SEE OLD CHARTS FOR DETAILS Physical Exam Vital Signs Vital Signs - First Documented 04/09/22 19:16 Temp 36.7 Pulse 82 Resp 18 B/P (MAP) 137/75 (95) Pulse Ox 98 O2 Delivery Room Air Capillary Refill : Less Than 3 Seconds Height, Weight, BMI Height: 5'8.00" Weight: 189lbs. 0.0oz. 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 Norm as Tested Skin: Normal Color, Warm/Dry Progress/Results/Core Measures Results/Orders Lab Results Laboratory Tests Test 04/09/22 19:20 04/09/22 22:55 Range/Units White Blood Count 8.1 4.3-11.0 10^3/uL Red Blood Count 4.59 3.80-5.11 10^6/uL Hemoglobin 14.6 11.5-16.0 g/dL Hematocrit 42 35-52 % Mean Corpuscular Volume 92 80-99 fL Mean Corpuscular Hemoglobin 32 25-34 pg Mean Corpuscular Hemoglobin Concent 35 32-36 g/dL Red Cell Distribution Width 12.2 10.0-14.5 % Platelet Count 312 130-400 10^3/uL Mean Platelet Volume 10.6 9.0-12.2 fL Immature Granulocyte % (Auto) 0 % Neutrophils (%) (Auto) 47 42-75 % Lymphocytes (%) (Auto) 40 12-44 % Monocytes (%) (Auto) 9 0-12 % Eosinophils (%) (Auto) 4 0-10 % Basophils (%) (Auto) 1 0-10 % Neutrophils # (Auto) 3.8 1.8-7.8 10^3/uL Lymphocytes # (Auto) 3.2 1.0-4.0 10^3/uL Monocytes # (Auto) 0.7 0.0-1.0 10^3/uL Eosinophils # (Auto) 0.3 0.0-0.3 10^3/uL Basophils # (Auto) 0.1 0.0-0.1 10^3/uL Immature Granulocyte # (Auto) 0.0 0.0-0.1 10^3/uL Prothrombin Time 13.0 12.2-14.7 SEC INR Comment 0.9 0.8-1.4 Activated Partial Thromboplast Time 32 24-35 SEC D-Dimer 0.77 H 0.00-0.49 UG/ML Sodium Level 133 L 135-145 MMOL/L Potassium Level 3.9 3.6-5.0 MMOL/L Chloride Level 101 98-107 MMOL/L Carbon Dioxide Level 21 21-32 MMOL/L Anion Gap 11 5-14 MMOL/L Blood Urea Nitrogen 13 7-18 MG/DL Creatinine 1.07 0.60-1.30 MG/DL Estimat Glomerular Filtration Rate 64 BUN/Creatinine Ratio 12 Glucose Level 254 H 70-105 MG/DL Calcium Level 9.1 8.5-10.1 MG/DL Corrected Calcium 9.1 8.5-10.1 MG/DL Magnesium Level 1.7 1.6-2.4 MG/DL Total Bilirubin 1.3 H 0.1-1.0 MG/DL Aspartate Amino Transf (AST/SGOT) 16 5-34 U/L Alanine Aminotransferase (ALT/SGPT) 26 0-55 U/L Alkaline Phosphatase 119 40-136 U/L Myoglobin 28.2 10.0-92.0 NG/ML Troponin I < 0.028 < 0.028 <0.028 NG/ML Total Protein 6.9 6.4-8.2 GM/DL Albumin 4.0 3.2-4.5 GM/DL My Orders Orders - DORA ROMERO MD Cbc With Automated Diff (04/09/22 19:29) Magnesium (04/09/22 19:29) Chest 1 View, Ap/Pa Only (04/09/22:29) Ekg Tracing (04/09/22:29) Comprehensive Metabolic Panel (04/09/22:29) Myoglobin Serum (04/09/22 19:29) Protime With Inr (04/09/22:29) Partial Thromboplastin Time (04/09/22:29) O2 (04/09/22:29) Monitor-Rhythm Ecg Trace Only (04/09/22:29) Ed Iv/Invasive Line Start (04/09/22 19:29) Troponin I Kt (04/09/22 19:29) Nitroglycerin 0.4 Mg Btl 25's (Nitrostat (04/09/22 19:45) Ondansetron Injection (Zofran Injectio (04/09/22 19:45) Troponin I [place] (04/09/22 22:30) Ondansetron Injection (Zofran Injectio (04/09/22 23:30) Lidocaine 2% Viscous 15 Ml (Xylocaine Vi (04/09/22 23:30) Antacid Suspension (Mylanta Suspension (04/09/22 23:30) Fibrin Degradation Products (04/10/22 00:25) Morphine Injection (Morphine Injection (04/10/22 00:29) Ct Angio Chest W (04/10/22 00:45) Sertraline Tablet (Zoloft Tablet) (04/10/22 01:00) Atorvastatin Tablet (Lipitor Tablet) (04/10/22 21:00) Hydroxyzine Cap/Tab (Vistaril) (04/10/22 01:00) Nitroglycerin Ointment (Nitrobid Ointme (04/10/22 01:30) Ekg Tracing (04/10/22 03:05) Morphine Injection (Morphine Injection (04/10/22 03:08) Medications Given in ED Current Medications Medications Dose Ordered Sig/Sara Route Start Time Stop Time Status Last Admin Dose Admin Al Hydrox/Mg Hydrox/Simethicone 30 ml ONCE ONCE PO 04/09/22 23:30 04/09/22 23:31 DC 04/09/22 23:42 30 ML Hydroxyzine Pamoate 25 mg ONCE ONCE PO 04/10/22 01:00 04/10/22 01:01 DC 04/10/22 01:29 25 MG Lidocaine HCl 15 ml ONCE ONCE PO 04/09/22 23:30 04/09/22 23:31 DC 04/09/22 23:42 15 ML Nitroglycerin 0.4 mg UD PRN SL 04/09/22 19:45 04/09/22 20:52 0.4 MG Nitroglycerin 0.5 inch ONCE ONCE TOP 04/10/22 01:30 04/10/22 01:31 DC 04/10/22 01:54 0.5 INCH Ondansetron HCl 4 mg ONCE ONCE IVP 04/09/22 23:30 04/09/22 23:31 DC 04/09/22 23:42 4 MG Ondansetron HCl 8 mg ONCE ONCE IVP 04/09/22 19:45 04/09/22 19:46 DC 04/09/22 20:32 8 MG Sertraline HCl 100 mg ONCE ONCE PO 04/10/22 01:00 04/10/22 01:01 DC 04/10/22 01:29 100 MG Vital Signs/I&O 04/09/22 19:16 Temp 36.7 Pulse 82 Resp 18 B/P (MAP) 137/75 (95) Pulse Ox 98 O2 Delivery Room Air Blood Pressure Mean: 95 Progress Progress Note : Progress Note Work-up was relatively unremarkable. 2 additional doses of nitroglycerin did not improve her pain. GI cocktail likewise did not improve her pain. Eventually morphine was administered which improved her pain somewhat. Case was discussed with Dr. Jay. He recommended D-dimer to screen for PE. D-dimer was slightly elevated. CT angiogram followed and showed no significant pathology. Patient ultimately was admitted due to persistent chest pain in the context of known coronary artery disease. Repeat troponin and EKG were unremarkable. Initial ECG Impression Date: Apr 10, 2022 Initial ECG Impression Time: 19:25 Initial ECG Rate: 81 Initial ECG Rhythm: Normal Sinus Comment Normal sinus rhythm with no ST elevation or depression. No abnormal intervals or axis deviation. EKG : EKG Time: 03:24 Rate: 72 Rhythm: Normal Sinus Intervals: Normal ECG Impression: Normal Comment Normal sinus rhythm with no ST elevation or depression. No abnormal intervals or axis deviation. Diagnostic Imaging Diagonstic Imaging: Xray Plain Films/CT/US/NM/MRI: chest Comments NAME: [facility] REC#: [id number] PT STATUS: REG ER : 1975 PHYSICIAN: DORA ROMERO MD ADMIT DATE: 04/09/22/ER Signed Date of Exam:04/09/22 CHEST 1 VIEW, AP/PA ONLY INDICATION: Chest pain. TECHNIQUE: Single view chest 8:20 PM. CORRELATION STUDY: 03/03/2022. FINDINGS: Poststernotomy change. Heart size and mediastinum are stable. Vasculature overall appears to be likely within normal limits. The lungs are clear with no consolidating infiltrate. There is no significant effusion or pneumothorax. IMPRESSION: Poststernotomy change. Negative for acute cardiopulmonary abnormality. Dictated by: Dictated on workstation # [id number] Dict: 04/09/222040 Trans: 04/09/22 [facility] [id number] Interpreted by: AYDEN SMALLWOOD DO Electronically signed by: AYDEN SMALLWOOD DO 04/09/22 6830 Departure Communication (Admissions) Time/Spoke to Admitting Phy: 03:10 Dr. Hernandez Time/Spoke to Consulting Phy: 00:25 Dr. Jay Impression Primary Impression: Chest pain Qualified Codes: R07.9 - Chest pain, unspecified Additional Impression: CAD (coronary artery disease) Qualified Codes: I25.10 - Atherosclerotic heart disease of [place] coronary artery without angina pectoris Disposition: ADMITTED INPATIENT Condition: Stable Admissions Decision to Admit Reason: Admit from ER (General) Decision to Admit/Date: Apr 10, 2022 Time/Decision to Admit Time: 00:25 Departure-Patient Inst. Referrals: EDWAR CHAMORRO DO (PCP/Family) Primary Care Physician DORA ROMERO MD Apr 10, 2022 00:29
[2022-04-10] MEDS ORDERED: hydrOXYzine (VISTARIL/ATARAX) 25 MG capsule/tablet PO ONE (01:00)
[2022-04-10] MEDS ORDERED: SERTRALINE 100 MG (ZOLOFT) TAB PO ONE (01:00)
[2022-04-10] MEDS ORDERED: NITROGLYCERIN 2% OINT 1 GM UNIT DOSE PACKET TOP ONE (01:30)
[2022-04-10] MEDS ORDERED: LACTATED RINGERS 1,000 ML IV ONE (04:14)
[2022-04-10] MEDS ORDERED: LACTATED RINGERS 1,000 ML IV SCH (04:30)
[2022-04-10] MEDS: ONDANSETRON 4 MG/2 ML (SDV) Z0FRAN IV PRN ×2 (04:57→10:13)
[2022-04-10] MEDS: morphine INJ 4 MG/ML 1 ML (VIAL/SYRINGE) IV PRN ×2 (04:57→07:53)
[2022-04-10 06:09] LABS: TRIGLYCERIDES 165 MG/DL (<150); VLDL CHOLESTEROL 33 MG/DL (5-40)
[2022-04-10 06:14] LABS: CHOLESTEROL 168 MG/DL (< 200)
[2022-04-10 06:15] LABS: HDL CHOLESTEROL 33 MG/DL (40-60)
--- NOTE | 2022-04-10 07:45 | Diagnostic Imaging Report ---
PROCEDURE: CT angiography of the chest with contrast. TECHNIQUE: Multiple contiguous axial images were obtained through the chest after uneventful bolus administration of intravenous contrast. 3D reconstructed CTA MIP acquisitions were also performed. Auto Exposure Controls were utilized during the CT exam to meet ALARA standards for radiation dose reduction. INDICATION: Chest pain. EXAMINATION: CT angiogram of the chest 04/10/2022. COMPARISON: 03/03/2022. FINDINGS: The thoracic aorta appears unremarkable other than atherosclerotic disease noted. There are no central or proximal segmental pulmonary emboli. Within the lungs, small subpleural nodules noted in the right lower lobe posteriorly less than 5 mm in size. This is stable. Similar findings noted in the posterior left lower lobe. There are no focal infiltrates or suspicious masses. No pericardial or pleural effusions. There is a moderate-sized hiatal hernia. There is no lymphadenopathy. There is no acute osseous abnormality. Sternotomy changes noted. The visualized upper abdominal structures demonstrate no evidence for an acute abnormality. Postcholecystectomy changes noted. Minimal central bronchial wall thickening in the perihilar regions which suggest a possible bronchitis. IMPRESSION: 1. No central or proximal segmental pulmonary embolus. 2. Small bibasilar posterior nodule stable from previous imaging, less than 5 mm in size. No acute process in the chest, well visualized upper abdomen. Pertinent findings agree with the preliminary report. 3. Minimal central bronchial wall thickening in the perihilar regions which suggest a possible bronchitis. Dictated by: Dictated on workstation # [id number]
[2022-04-10] MEDS ORDERED: ASPIRIN E.C. 81 MG (ECOTRIN) TAB PO SCH ×2 (09:00)
[2022-04-10] MEDS ORDERED: PANTOPRAZOLE 40 MG (PROTONIX) TAB PO SCH (09:00)
[2022-04-10] MEDS ORDERED: NITROGLYCERIN 0.4 MG SL TABS BTL 25'S SL PRN (09:00)
[2022-04-10] MEDS ORDERED: meTOprolol TARTRATE 25 MG (LOPRESSOR) TABLET PO SCH (09:00)
[2022-04-10] MEDS ORDERED: ISOSORBIDE MONONITRATE 30 MG (IMDUR) TAB PO SCH (09:00)
[2022-04-10] MEDS ORDERED: CLOPIDOGREL 75 MG (PLAVIX) TABLET PO SCH (09:00)
[2022-04-10] MEDS ORDERED: RANOLAZINE ER 500 MG TAB (RANEXA) PO SCH (09:00)
--- NOTE | 2022-04-10 09:05 | Consultation-Cardiology ---
HPI-Cardiology Cardiology Consultation: Date of Consultation 04/10/22 Date of Admission 04/09/22 Attending Physician Willem Chamorro DO Admitting Physician Admitting Physician: Shonda Davies MD Attending Physician: Mitchell Lebron MD Consulting Physician SYED ALAN JR, MD HPI: Time Seen by a Provider: 09:02 Chief Complaint: REASON FOR CONSULTATION: Chest pain. I had the pleasure of seeing Melanie on the medical/surgical unit at [facility] in [place], [place] today. She has an extensive past cardiac history. She normally follows with one of my partners, Dr. Aguilar. Over the past year she has had several admissions for chest pain. She was doing well until yesterday when she was laying in bed watching television and suddenly developed a sharp pain at the lower sternal margin. This radiated up towards the top of her sternum and then down her left arm. She took 1 sublingual nitroglycerin at home that did not help. She then called 911 and was brought to the emergency room. She was given a GI cocktail and some additional nitroglycerin. The GI cocktail did not help her chest discomfort but she did get slight relief with the sublingual nitroglycerin. She was then started on nitroglycerin paste. Her chest pain was 9/10 at home and although appearing comfortable in bed when I saw her, she said her chest pain was 7/10. The chest pain made her feel short of breath and lightheaded. She denies syncope. She did have some slight palpitati ons with the chest pain. She denies paroxysmal nocturnal dyspnea or orthopnea. She has had mild, intermittent lower extremity edema. She has been taking Chantix to help quit smoking and is now down to 2-3 cigarettes/day. Certain portions of this document may have been dictated utilizing voice recognition technology. Inherent to this technology, typographical and grammatical errors may exist. As much as I am diligent to identify and correct these mistakes, some errors may remain in the document. Review of Systems-Cardiology Review of Systems Other comments Review of 10 organ systems is as per the history of present illness, otherwise negative. ZHD-Lgniwz-Yhbrez Hx Patient Social History Smoking Status: Current Someday Smoker 2nd Hand Smoke Exposure: No Have you traveled recently?: No Alcohol Use?: No Pt feels they are or have been: No Tobacco type used: Cigarettes Immunizations Up To Date Tetanus Booster (TDap): More than 5yrs Date of Pneumonia Vaccine: Jun 20, 2013 Date of Influenza Vaccine: May 09, 2021 Past Medical History PMH As described under Assessment. Family Medical History Family Medical History: She states her father had a myocardial infarction at the age of 25. Allergies and Home Medications Allergies Coded Allergies: Penicillins (Verified Allergy, Unknown, 05/16/21) Sulfa (Sulfonamide Antibiotics) (Verified Allergy, Unknown, 05/16/21) naproxen (Verified Allergy, Unknown, HIVES, NAUSEA--can take ibuprofen, 05/16/21) Patient Home Medication List Home Medication List Reviewed: Yes Aripiprazole (Abilify) 15 Mg Tablet, 7.5 MG PO DAILY, (Reported) Entered as Reported by: SONJA OH on 06/27/21 1036 Last Action: Reviewed Aspirin (Aspirin EC) 81 Mg Tablet.dr, 81 MG PO DAILY, (Reported) Entered as Reported by: SONJA OH on 05/24/21 0959 Last Action: Reviewed Atorvastatin Calcium (Atorvastatin Calcium) 80 Mg Tablet, 80 MG PO HS Prescribed by: MITCHELL LEBRON on 04/10/22 1423 Clopidogrel Bisulfate (Plavix) 75 Mg Tablet, 75 MG PO DAILY, (Reported) Entered as Reported by: SONJA OH on 05/26/21 1059 Last Action: Reviewed Eszopiclone (Lunesta) 2 Mg Tablet, 2 MG PO HS, (Reported) Entered as Reported by: DOLORES LARIOS on 08/15/21 1555 Last Action: Reviewed Ezetimibe (Ezetimibe) 10 Mg Tablet, 10 MG PO HS Prescribed by: MITCHELL LEBRON on 04/10/22 1423 Hydroxyzine HCl (Hydroxyzine HCl) 25 Mg Tablet, 25 MG PO BID PRN for ANXIETY, (Reported) Entered as Reported by: SONJA OH on 06/27/21 1036 Last Action: Reviewed Ibuprofen (Advil) 200 Mg Tablet, 200 MG PO Q8H PRN for PAIN-MILD (1-4), (Reported) Entered as Reported by: DOLORES LARIOS on 04/10/22 1409 Last Action: Reviewed Isosorbide Mononitrate (Isosorbide Mononitrate ER) 30 Mg Tab.er.24h, 30 MG PO DAILY Prescribed by: MITCHELL LEBRON on 04/10/22 1423 Metformin HCl (Metformin HCl) 500 Mg Tablet, 500 MG PO DAILY, (Reported) Entered as Reported by: DOLORES LARIOS on 08/15/21 1552 Last Action: Reviewed Metoprolol Tartrate (Metoprolol Tartrate) 25 Mg Tablet, 12.5 MG PO BID, (Reported) Entered as Reported by: SONJA OH on 05/26/21 1059 Last Action: Reviewed Nitroglycerin (Nitroglycerin) 0.3 Mg Tab.subl, 0.3 MG SL UD PRN for CHEST PAIN (ANGINA), (Reported) Entered as Reported by: DOLORES LARIOS on 04/10/22 1407 Last Action: Reviewed Pantoprazole Sodium (Pantoprazole Sodium) 40 Mg Tablet.dr, 40 MG PO BID Prescribed by: MITCHELL LEBRON on 04/10/22 1423 Sertraline HCl (Sertraline HCl) 100 Mg Tablet, 100 MG PO HS, (Reported) Entered as Reported by: SONJA OH on 06/27/21 1036 Last Action: Reviewed Varenicline Tartrate (Varenicline) 0.5 Mg (11)-1 Mg (42) Tab.ds.pk, 1 TAB PO UD, (Reported) Entered as Reported by: DOLORES LARIOS on 04/10/22 1406 Last Action: Reviewed Exam Vital Signs Vital Signs Date Time Temp Pulse Resp B/P (MAP) Pulse Ox O2 Delivery O2 Flow Rate FiO2 04/10/22 16:17 36.2 77 19 106/70 94 Room Air 2.00 Physical Exam General: Alert. No acute distress. Well nourished and appears stated age. She is obese. Eye: Extraocular movements are intact. Conjunctivae are clear. There are no xanthelasma. HENT: Normocephalic. Atraumatic. Carotid pulsations 2/2 without bruits. She is a dentulous. Neck: Jugular venous pressure does not appear elevated. No thyromegaly appreciated. Respiratory: Lungs are clear to auscultation. Respirations are non-labored. Breath sounds are equal. Symmetrical chest wall expansion. Cardiovascular: Normal rate. Regular rhythm. Distant S1/S2. No murmur. No gallop. Point of maximal impulse is not appear displaced. Good pulses equal in all extremities. Trace bilateral pretibial edema. Gastrointestinal: Soft. Normal bowel sounds. Skin: Skin turgor is normal. There is no pallor. Musculoskeletal: No kyphosis or scoliosis appreciated. Neurologic: Alert and oriented to person, place, time. Cranial nerves 3-12 appear grossly intact. The patient has good motor tone strength in the upper and lower extremities bilaterally. Psychiatric: Cooperative. Appropriate mood & affect. Labs Laboratory Tests Test 04/09/22 19:20 04/09/22 22:55 04/10/22 05:35 Range/Units White Blood Count 8.1 4.3-11.0 10^3/uL Red Blood Count 4.59 3.80-5.11 10^6/uL Hemoglobin 14.6 11.5-16.0 g/dL Hematocrit 42 35-52 % Mean Corpuscular Volume 92 80-99 fL Mean Corpuscular Hemoglobin 32 25-34 pg Mean Corpuscular Hemoglobin Concent 35 32-36 g/dL Red Cell Distribution Width 12.2 10.0-14.5 % Platelet Count 312 130-400 10^3/uL Mean Platelet Volume 10.6 9.0-12.2 fL Immature Granulocyte % (Auto) 0 % Neutrophils (%) (Auto) 47 42-75 % Lymphocytes (%) (Auto) 40 12-44 % Monocytes (%) (Auto) 9 0-12 % Eosinophils (%) (Auto) 4 0-10 % Basophils (%) (Auto) 1 0-10 % Neutrophils # (Auto) 3.8 1.8-7.8 10^3/uL Lymphocytes # (Auto) 3.2 1.0-4.0 10^3/uL Monocytes # (Auto) 0.7 0.0-1.0 10^3/uL Eosinophils # (Auto) 0.3 0.0-0.3 10^3/uL Basophils # (Auto) 0.1 0.0-0.1 10^3/uL Immature Granulocyte # (Auto) 0.0 0.0-0.1 10^3/uL Prothrombin Time 13.0 12.2-14.7 SEC INR Comment 0.9 0.8-1.4 Activated Partial Thromboplast Time 32 24-35 SEC D-Dimer 0.77 H 0.00-0.49 UG/ML Sodium Level 133 L 135-145 MMOL/L Potassium Level 3.9 3.6-5.0 MMOL/L Chloride Level 101 98-107 MMOL/L Carbon Dioxide Level 21 21-32 MMOL/L Anion Gap 11 5-14 MMOL/L Blood Urea Nitrogen 13 7-18 MG/DL Creatinine 1.07 0.60-1.30 MG/DL Estimat Glomerular Filtration Rate 64 BUN/Creatinine Ratio 12 Glucose Level 254 H 70-105 MG/DL Calcium Level 9.1 8.5-10.1 MG/DL Corrected Calcium 9.1 8.5-10.1 MG/DL Magnesium Level 1.7 1.6-2.4 MG/DL Total Bilirubin 1.3 H 0.1-1.0 MG/DL Aspartate Amino Transf (AST/SGOT) 16 5-34 U/L Alanine Aminotransferase (ALT/SGPT) 26 0-55 U/L Alkaline Phosphatase 119 40-136 U/L Myoglobin 28.2 10.0-92.0 NG/ML Troponin I < 0.028 < 0.028 < 0.028 <0.028 NG/ML Total Protein 6.9 6.4-8.2 GM/DL Albumin 4.0 3.2-4.5 GM/DL Triglycerides Level 165 H <150 MG/DL Cholesterol Level 168 < 200 MG/DL LDL Cholesterol Direct 127 1-129 MG/DL VLDL Cholesterol 33 5-40 MG/DL HDL Cholesterol 33 L 40-60 MG/DL Radiology CARDIAC CATHETERIZATION (08/15/2021): 1. Normal central aortic pressure with elevated left ventricular end-diastolic pressure. 2. Patent stent in the mid left anterior descending coronary artery. 3. Total occlusion of the mid right coronary artery within previously placed stents. This is known to be a chronic total occlusion. 4. The left internal mammary artery graft to left anterior descending coronary artery is known to be atretic and was not studied during this procedure. 5. Patent saphenous vein graft to the obtuse marginal branch with a patent stent in the ostium. 6. The patient is known to have normal left ventricular systolic function with an estimated ejection fraction of 60-65% by echocardiogram performed earlier today. 7. The patient may be having angina from small vessel disease. ECG Impression ECG Comment Electrocardiogram from this morning shows sinus rhythm with left atrial abnormality and old inferior infarct. No acute ST changes. Diagnosis/Problems Diagnosis/Problems (1) Coronary artery disease with unstable angina pectoris Assessment & Plan: She is having symptoms concerning for unstable angina. Her medication reconciliation appeared to show that she was taking ranolazine at home but apparently she was not taking this medication. I ordered ranolazine and isosorbide mononitrate in addition to her other cardiac medications. Her chest discomfort resolved. She had undetectable troponin levels and no new EKG changes. She had a cardiac catheterization less than 1 year ago that did not show any targets for revascularization. From a cardiac standpoint, she can be discharged to home. I recommend she be discharged with isosorbide mononitrate 30 mg once daily in addition to her other cardiac medications. I asked the hospitalist not to continue ranolazine since she was not taking this at home. (2) Mixed hyperlipidemia Assessment & Plan: Despite being on the maximum dose of atorvastatin, her LDL level is still too high. I will start her on ezetimibe. She may be a good candidate for a PCSK9 inhibitor but we can coordinate this as an outpatient following discharge. (3) Gastroesophageal reflux disease without esophagitis Assessment & Plan: Unclear whether or not this could be contributing to her chest discomfort. I recommend she continue on proton pump inhibitor. (4) Cigarette smoker Assessment & Plan: She needs to quit smoking. She was counseled in this regard. She has actually been trying to cut down. (5) Type 2 diabetes mellitus with complication Assessment & Plan: This is being managed by the hospitalist. (6) Obesity Status: Chronic Assessment & Plan: She needs to work on weight loss. SYED ALAN JR, MD Apr 10, 2022 09:05
--- NOTE | 2022-04-10 09:46 | Short Stay Summary-Hospitalist ---
History of Present Illness HPI/Chief Complaint Patient is a 47-year-old female past medical history of coronary artery disease well-known to me from multiple admissions for chest pain. She presented to the emergency department yesterday due to onset of chest pain at rest. She took a nitro at home which did not help so she summoned EMS. She was then given aspirin by EMS and brought in for evaluation. Her troponin was negative on arrival as was her EKG but given her significant history she was admitted for observation overnight. This morning she reports her chest pain has improved though is still somewhat present. She denies any shortness of breath, dyspnea on exertion, abdominal pain, nausea, vomiting. She has recently started on Chantix to quit smoking. Source: patient Date Seen 04/10/22 Time Seen by a Provider: 10:30 Attending Physician Willem Chamorro DO PCP Admitting Physician: Shonda Davies MD Attending Physician: Mitchell Ivy MD Referring Physician Date of Admission Apr 10, 2022 at 03:27 Home Medications & Allergies Home Medications Reviewed patient Home Medication Reconciliation performed by pharmacy medication reconciliations light rail signal technician and/or nursing. Patients Allergies have been reviewed. Allergies Allergies Coded Allergies Penicillins (Verified Allergy, Unknown, 05/16/21) Sulfa (Sulfonamide Antibiotics) (Verified Allergy, Unknown, 05/16/21) naproxen (Verified Allergy, Unknown, HIVES, NAUSEA--can take ibuprofen, 05/16/21) Past Lljogwk-Eadysq-Dnfjfq Hx Patient Social History Tobacco Use?: Yes Tobacco type used: Cigarettes Smoking Status: Current Someday Smoker Use of E-Cig and/or Vaping dev: No Substance use?: No Alcohol Use?: No Pt feels they are or have been: No Immunizations Up To Date Date of Influenza Vaccine: May 09, 2021 First/Initial COVID19 Vaccinat: not vaccinated Second COVID19 Vaccination Mark: not vaccinated Tetanus Booster (TDap): Unknown Date of Pneumonia Vaccine: Jun 20, 2013 Seasonal Allergies Seasonal Allergies: No Current Status status: No status: No Advance Directives: Unable to obtain Communicates: Verbally Primary Language: Turkish Preferred Spoken Language: Turkish Is interpretation needed?: No Implanted or Applied Medical D: Stents Past Medical History Surgeries: Abdominal, Adenoidectomy, Cardiac, CABG, Coronary Stent, Ear Surgery, Gallbladder, Orthopedic, Tonsillectomy, Tracheostomy Asthma, Chronic Bronchitis, COPD Coronary Artery Disease, Deep Vein Thrombosis, Heart Attack, High Cholesterol, Hypertension Headaches /Migraines, Seizure Disorder Sexually Transmitted Disease: Yes (HERPES) Gastroesophageal Reflux, Esophagitis, Hiatal Hernia, Gall Bladder Disease Arthritis Hypothyroidsim, Diabetes, Non-Insulin dep Chronic Ear Infection Hearing Impairment: Hard of Hearing Cervical Did You Recieve Any Treatments: Yes What Type of Treatment Did You: Surgical Intervention Sleep Difficulties, Anxiety, Suicide Attempts, Depression Blood Disorders: No Adverse Reaction/Blood Tranf: No See Problem List Family Medical History Heart Disease SEE OLD CHARTS FOR DETAILS Review of Systems Constitutional: chills EENTM: no symptoms reported Respiratory: see HPI Cardiovascular: chest pain; No edema; Hx of Intervention Gastrointestinal: no symptoms reported Genitourinary: no symptoms reported Musculoskeletal: no symptoms reported Skin: no symptoms reported Psychiatric/Neurological: No Symptoms Reported Physical Exam Physical Exam Vital Signs Vital Signs - First Documented 04/09/22 04/10/22 19:16 12:04 Temp 36.7 Pulse 82 Resp 18 B/P (MAP) 137/75 (95) Pulse Ox 98 O2 Delivery Room Air O2 Flow Rate 2.00 Capillary Refill : Less Than 3 Seconds Height, Weight, BMI Height: 5'8.00" Weight: 189lbs. 0.0oz. 85.800794bj; 38.30 BMI Method:Stated General Appearance: No Apparent Distress, WD/WN, Chronically ill, Obese HEENT: PERRL/EOMI, Normal ENT Inspection; No Scleral Icterus (L), No Scleral Icterus (R) Neck: Normal Inspection, Supple Respiratory: Lungs Clear, No Accessory Muscle Use, No Respiratory Distress Cardiovascular: Regular Rate, Rhythm, No Edema, No Murmur, Normal Peripheral Pulses Gastrointestinal: Normal Bowel Sounds, Non Tender, Soft Extremity: Normal Inspection, Non Tender, No Calf Tenderness, No Pedal Edema Neurologic/Psychiatric: Alert, Oriented x3, Normal Mood/Affect; No Aphasia, No Facial Droop Skin: Normal Color, Warm/Dry Results Results/Procedures Labs Laboratory Tests 04/09/22 19:20 Patient resulted labs reviewed. Imaging [facility], [place] NAME: WAN DA SILVA MED REC#: [id number] PT STATUS: REG ER : 1975 PHYSICIAN: DORA ROMERO MD ADMIT DATE: 04/09/22/ER Signed Date of Exam:04/09/22 CHEST 1 VIEW, AP/PA ONLY INDICATION: Chest pain. TECHNIQUE: Single view chest 8:20 PM. CORRELATION STUDY: 03/03/2022. FINDINGS: Poststernotomy change. Heart size and mediastinum are stable. Vasculature overall appears to be likely within normal limits. The lungs are clear with no consolidating infiltrate. There is no significant effusion or pneumothorax. IMPRESSION: Poststernotomy change. Negative for acute cardiopulmonary abnormality. Dictated by: Dictated on workstation # [id number] Dict: 04/09/222040 Trans: 04/09/222314 [facility] [id number] Interpreted by: AYDEN SMALLWOOD DO Electronically signed by: AYDEN SMALLWOOD DO 04/09/222314 [facility], [place] NAME: WAN DA SILVA Ren [facility] REC#: [id number] PT STATUS: ADM Avril : 1975 PHYSICIAN: DORA ROMERO MD ADMIT DATE: 04/10/22 Signed Date of Exam:04/10/22 CT ANGIO CHEST W PROCEDURE: CT angiography of the chest with contrast. TECHNIQUE: Multiple contiguous axial images were obtained through the chest after uneventful bolus administration of intravenous contrast. 3D reconstructed CTA MIP acquisitions were also performed. Auto Exposure Controls were utilized during the CT exam to meet ALARA standards for radiation dose reduction. INDICATION: Chest pain. EXAMINATION: CT angiogram of the chest 04/10/2022. COMPARISON: 03/03/2022. FINDINGS: The thoracic aorta appears unremarkable other than atherosclerotic disease noted. There are no central or proximal segmental pulmonary emboli. Within the lungs, small subpleural nodules noted in the right lower lobe posteriorly less than 5 mm in size. This is stable. Similar findings noted in the posterior left lower lobe. There are no focal infiltrates or suspicious masses. No pericardial or pleural effusions. There is a moderate-sized hiatal hernia. There is no lymphadenopathy. There is no acute osseous abnormality. Sternotomy changes noted. The visualized upper abdominal structures demonstrate no evidence for an acute abnormality. Postcholecystectomy changes noted. Minimal central bronchial wall thickening in the perihilar regions which suggest a possible bronchitis. IMPRESSION: 1. No central or proximal segmental pulmonary embolus. 2. Small bibasilar posterior nodule stable from previous imaging, less than 5 mm in size. No acute process in the chest, well visualized upper abdomen. Pertinent findings agree with the preliminary report. 3. Minimal central bronchial wall thickening in the perihilar regions which suggest a possible bronchitis. Dictated by: Dictated on workstation # [id number] Dict: 04/10/22 0707 Trans: 04/10/22 1208 CVB [id number] Interpreted by: JAZMIN MORRISON MD Electronically signed by: JAZMIN MORRISON MD 04/10/22 1208 Short Stay Diagnosis Discharge Diagnosis-Short Stay Admission Diagnosis Chest pain Final Discharge Diagnosis Chest pain Conclusion Plan Chest pain CAD GERD Tobacco abuse Troponin normal x3 Cardiology consulted- defer management of chest pain to them given significant history of CAD Known CAD s/p cabg Imdur added by Dr Jay- discussed with Dr Jay today who states if pain improved patient can DC from a cardiac standpoint later today Encouraged smoking cessation T2DM HTN HLD COPD Obesity Continue home meds when med rec done DVT prophylaxis: Lovenox Diagnosis/Problems Diagnosis/Problems (1) Chronic chest pain Status: Acute (2) Smoker Status: Acute (3) HTN (hypertension) Status: Acute (4) S/P CABG (coronary artery bypass graft) Status: Chronic (5) CAD (coronary artery disease) Status: Acute Qualifiers: Qualified Codes: I25.10 - Atherosclerotic heart disease of [place] coronary artery without angina pectoris (6) HLD (hyperlipidemia) Status: Chronic (7) T2DM (type 2 diabetes mellitus) Status: Chronic (8) Obesity Status: Chronic Clinical Quality Measures AMI/AHF: ASA po Prior to arrival: Yes Smoking Cessation Counseling: Counseling-Symptomatic: 3-10 Minutes MITCHELL IVY MD Apr 10, 2022 09:45
[2022-04-10] MEDS ORDERED: VARE1TAB28 PO (14:06)
[2022-04-10] MEDS ORDERED: NITR0.3T7 SL (14:07)
[2022-04-10] MEDS ORDERED: IBUP-30 PO (14:09)
[2022-04-10] MEDS ORDERED: PANT40TA52 PO (14:23)
[2022-04-10] MEDS ORDERED: ISOS30TA82 PO (14:23)
[2022-04-10] MEDS ORDERED: EZET10TA49 PO (14:23)
[2022-04-10] MEDS ORDERED: ATOR80TA76 PO (14:23)
--- NOTE | 2022-04-10 14:29 | Discharge Inst-Simple/Standard ---
Discharge Inst-Standard Patient Instructions/Follow Up Plan of Care/Instructions/FU: Please continue to take your medications as written. Please follow up with your primary care doctor to follow up this hospital stay. Activity as Tolerated: Yes Discharge Diet: Cardiac Diet Return to The Hospital For: Chest pain, shortness of breath, fever, weakness, if you feel you are getting worse. MITCHELL LEBRON MD Apr 10, 2022 14:29
[2022-04-10] MEDS ORDERED: eZETimibe 10 MG (ZETIA) TABLET PO SCH (21:00)
== END 2022-04-10 14:30 | disposition home or self-care (01) ==
LOC: EDUNIT# 19:03 → ER 19:14 → 4TH 19:15 → UNDOADMOB 04-10 03:27 → UNDODISOB 04-10 16:21
PROVIDERS: ADMIT Internal Medicine; ATTEND Family Medicine
DX: R07.9 Chest pain, unspecified (principal); I25.10 Atherosclerotic heart disease of native coronary artery without angina pectoris; K21.9 Gastro-esophageal reflux disease without esophagitis; F17.210 Nicotine dependence, cigarettes, uncomplicated; E11.9 Type 2 diabetes mellitus without complications; I10 Essential (primary) hypertension; E78.5 Hyperlipidemia, unspecified; J44.9 Chronic obstructive pulmonary disease, unspecified; E66.9 Obesity, unspecified; Z95.0 Presence of cardiac pacemaker; Z68.38 Body mass index [BMI] 38.0-38.9, adult; Z79.82 Long term (current) use of aspirin; Z79.01 Long term (current) use of anticoagulants; Z79.899 Other long term (current) drug therapy; Z79.84 Long term (current) use of oral hypoglycemic drugs
CPT/HCPCS: 71045; 71275; 80053; 80061; 83735; 83874; 84484 ×2; 85025; 85379; 85610; 85730; 93005 ×2; 93041; 96374; 96375; 96376 ×2; 99284; G0378; 36415

== ENCOUNTER 2022-04-15 18:02 | Observation (INO) | payer MEDICARE, MEDICAID ==
[~2022-04-15] VITALS: Ht 172.7 cm; Wt 112.7 kg
[~2022-04-15 18:02] MED LIST changes: +EZET10TA49 PO; +VARE1TAB28 PO
[2022-04-15 18:24] LABS: BASOPHILS # (AUTO) 0.1 10^3/uL (0.0-0.1); BASOPHILS % (AUTO) 1 % (0-10); EOSINOPHILS # (AUTO) 0.4 10^3/uL (0.0-0.3); EOSINOPHILS % (AUTO) 5 % (0-10); HEMATOCRIT 37 % (35-52); LYMPHOCYTES # (AUTO) 2.9 10^3/uL (1.0-4.0); LYMPHOCYTES % (AUTO) 37 % (12-44); MEAN CORPUSCULAR HEMOGLOBIN 32 pg (25-34); MEAN CORPUSCULAR HGB CONC 35 g/dL (32-36); MEAN CORPUSCULAR VOLUME 91 fL (80-99); MEAN PLATELET VOLUME 10.5 fL (9.0-12.2); MONOCYTES # (AUTO) 0.5 10^3/uL (0.0-1.0); MONOCYTES % (AUTO) 6 % (0-12); NEUTROPHILS # (AUTO) 3.9 10^3/uL (1.8-7.8); NEUTROPHILS % (AUTO) 51 % (42-75); PLATELET COUNT 269 10^3/uL (130-400); WHITE BLOOD COUNT 7.8 10^3/uL (4.3-11.0)
[2022-04-15 18:30] LABS: ALBUMIN 3.6 GM/DL (3.2-4.5); INR 0.9 (0.8-1.4); POTASSIUM 3.5 MMOL/L (3.6-5.0); PROTHROMBIN TIME PATIENT 12.6 SEC (12.2-14.7)
[2022-04-15] MEDS ORDERED: PANTOPRAZOLE 40 MG (PROTONIX) VIAL IV ONE (18:30)
[2022-04-15] MEDS ORDERED: LIDOCAINE 2% VISCOUS 15 ML UDC PO ONE (18:30)
[2022-04-15] MEDS ORDERED: ONDANSETRON 4 MG/2 ML (SDV) Z0FRAN IVP ONE (18:30)
[2022-04-15] MEDS ORDERED: ANTACID SUSP 30 ML UDC (MYLANTA) PO ONE (18:30)
[2022-04-15 18:32] VITALS: BP_SYST 111; BP_SYST 113; BP_SYST 115; BP_DIAS 67; BP_DIAS 73; BP_DIAS 75
[2022-04-15 18:32] LABS: CALCIUM 8.7 MG/DL (8.5-10.1)
--- NOTE | 2022-04-15 18:32 | ED Chest Pain ---
General Chief Complaint: Chest Pain Stated Complaint: CP Nursing Triage Note: PT ARRIVED VIA [facility]. PT STATED THAT SHE HAS CHEST PAIN RADIATING TO LEFT SHOULDER AND NAUSEA. PT TOOK 1 NITRO PRIOR TO EMS. EMS GAVE 2ND NITRO, ZOFRAN, AND 1L NS. Source: patient Exam Limitations: no limitations History of Present Illness Date Seen by Provider: Apr 15, 2022 Time Seen by Provider: 18:10 Initial Comments Patient to the ER by EMS from home with chief complaint that about an hour or 2 before arrival she was sitting on her couch she started having some chest pain midline running up and down the substernal region radiating to her left shoulder in the middle of her neck. She has had this pain before. She says she took a nitroglycerin with no help. EMS remarks that they gave her aspirin, nitroglycerin and 4 mg of Zofran because she was complaining of nausea. She has significant coronary disease with CABG and follows with Dr. Aguilar. She follows with Dr. Chamorro for primary care. She was recently put on GI medications after her last episode in the ER of chest pain was felt to be GI related. She does not member the name of the medicines but states she has been taking them and took them today. She denies smoking since the when she started taking Chantix. She has a history of hypertension hyperlipidemia diabetes on metformin with a blood sugar in the low 200s per EMS. She rates her pain as a 9 out of 10. She has not taken any antacids. She was most recently here 5 days ago for heart history. Description was similar to today. She claims that she got little to no relief from the nitroglycerin and the GI cocktail at that time did not help her chest discomfort. She had a cardiac catheterization July 2021 less than 2 years ago which showed a patent stent in the mid left anterior descending coronary artery, normal central aortic pressure with elevated left ventricular end- diastolic pressure. Total occlusion of the mid right coronary artery within previously placed stents that is a known total chronic occlusion. She has a left internal mammary artery graft to the LAD that is known to be atretic. She has a patent saphenous vein graft to the obtuse marginal branch with a patent stent in the ostium. The patient is known to have normal left ventricular systolic function with an estimated ejection fraction of 60 to 65% by echocardiogram on the same date. Suspect at that time that the patient was having angina from small vessel disease. She has been prescribed ranolazine but was not taking the medication she is also prescribed Imdur. She has a history of poor adherence to medications. In the past she has been responsive to morphine. Allergies and Home Medications Allergies Coded Allergies: Penicillins (Verified Allergy, Unknown, 05/16/21) Sulfa (Sulfonamide Antibiotics) (Verified Allergy, Unknown, 05/16/21) naproxen (Verified Allergy, Unknown, HIVES, NAUSEA--can take ibuprofen, 05/16/21) Patient Home Medication List Home Medication List Reviewed: Yes Aripiprazole (Abilify) 15 Mg Tablet, 7.5 MG PO DAILY, (Reported) Entered as Reported by: SONJA OH on 06/27/21 1036 Aspirin (Aspirin EC) 81 Mg Tablet.dr, 81 MG PO DAILY, (Reported) Entered as Reported by: SONJA OH on 05/24/21 0959 Atorvastatin Calcium (Atorvastatin Calcium) 80 Mg Tablet, 80 MG PO HS Prescribed by: MITCHELL LEBRON on 04/10/22 1423 Clopidogrel Bisulfate (Plavix) 75 Mg Tablet, 75 MG PO DAILY, (Reported) Entered as Reported by: SONJA OH on 05/26/21 1059 Eszopiclone (Lunesta) 2 Mg Tablet, 2 MG PO HS, (Reported) Entered as Reported by: DOLORES LARIOS on 08/15/21 1555 Ezetimibe (Ezetimibe) 10 Mg Tablet, 10 MG PO HS Prescribed by: MITCHELL LEBRON on 04/10/22 1423 Hydroxyzine HCl (Hydroxyzine HCl) 25 Mg Tablet, 25 MG PO BID PRN for ANXIETY, (Reported) Entered as Reported by: SONJA OH on 06/27/21 1036 Ibuprofen (Advil) 200 Mg Tablet, 200 MG PO Q8H PRN for PAIN-MILD (1-4), (Reported) Entered as Reported by: DOLORES LARIOS on 04/10/22 1409 Isosorbide Mononitrate (Isosorbide Mononitrate ER) 30 Mg Tab.er.24h, 30 MG PO DAILY Prescribed by: MITCHELL LEBRON on 04/10/22 1423 Metformin HCl (Metformin HCl) 500 Mg Tablet, 500 MG PO DAILY, (Reported) Entered as Reported by: DOLORES LARIOS on 08/15/21 1552 Metoprolol Tartrate (Metoprolol Tartrate) 25 Mg Tablet, 12.5 MG PO BID, (Reported) Entered as Reported by: SONJA OH on 05/26/21 1059 Nitroglycerin (Nitroglycerin) 0.3 Mg Tab.subl, 0.3 MG SL UD PRN for CHEST PAIN (ANGINA), (Reported) Entered as Reported by: DOLORES LARIOS on 04/10/22 1407 Pantoprazole Sodium (Pantoprazole Sodium) 40 Mg Tablet.dr, 40 MG PO BID Prescribed by: MITCHELL LEBRON on 04/10/22 1423 Sertraline HCl (Sertraline HCl) 100 Mg Tablet, 100 MG PO HS, (Reported) Entered as Reported by: SONJA OH on 06/27/21 1036 Varenicline Tartrate (Varenicline) 0.5 Mg (11)-1 Mg (42) Tab.ds.pk, 1 TAB PO UD, (Reported) Entered as Reported by: DOLORES LARIOS on 04/10/22 1406 Review of Systems Review of Systems Constitutional: No chills, No diaphoresis EENTM: No Blurred Vision, No Double Vision Respiratory: Denies Cough, Denies Shortness of Air Cardiovascular: See HPI, Chest Pain; Denies Edema; Lightheadedness, Syncope (Near syncope) Gastrointestinal: See HPI, Abdominal Pain (Epigastric pain); Denies Constipated, Denies Diarrhea; Nausea; Denies Poor Fluid Intake, Denies Vomiting Genitourinary: Denies Discharge Musculoskeletal: No back pain, No joint pain All Other Systems Reviewed Negative Unless Noted: Yes Past Dzkkpod-Igoywh-Lorzld Hx Patient Social History Tobacco Use?: No Smoking Status: Former Smoker Substance use?: No Alcohol Use?: No Pt feels they are or have been: Unable to obtain Immunizations Up To Date Tetanus Booster (TDap): More than 5yrs Influenza Vaccine Up-to-Date: Yes; Up-to-Date First/Initial COVID19 Vaccinat: not vaccinated Second COVID19 Vaccination Mark: not vaccinated Third COVID19 Vaccination Date: not vaccinated Seasonal Allergies Seasonal Allergies: No Past Medical History Surgery/Hospitalization HX: CABG 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) Sexually Transmitted Disease: Yes (HERPES) Genitourinary: No Gastrointestinal: Yes (S/P FABRICE FUNDOPLICATION) Gastroesophageal Reflux, Esophagitis, Hiatal Hernia, Gall Bladder Disease Musculoskeletal: Yes Arthritis Endocrine: Yes Hypothyroidsim, Diabetes, Non-Insulin dep HEENT: Yes Chronic Ear Infection Hearing Impairment: Hard of Hearing Cancer: Yes Cervical Did You Recieve Any Treatments: Yes What Type of Treatment Did You: Surgical Intervention Psychosocial: Yes Sleep Difficulties, Anxiety, Suicide Attempts, Depression Integumentary: No Blood Disorders: No Adverse Reaction/Blood Tranf: No Family Medical History Heart Disease SEE OLD CHARTS FOR DETAILS Physical Exam Vital Signs Vital Signs - First Documented 04/15/22 18:03 Temp 36.7 Pulse 74 Resp 17 B/P (MAP) 124/76 (92) Pulse Ox 97 O2 Delivery Room Air Capillary Refill : Less Than 3 Seconds Height, Weight, BMI Height: 5'8.00" Weight: 189lbs. 0.0oz. [id number]; 36.00 BMI Method:Stated General Appearance: No Apparent Distress, Obese HEENT: PERRL/EOMI, Pharynx Normal; No Moist Mucous Membranes Neck: Full Range of Motion, Normal Inspection, Non Tender Respiratory: Chest Non Tender, Lungs Clear, Normal Breath Sounds, No Accessory Muscle Use, No Respiratory Distress Cardiovascular: Regular Rate, Rhythm, No Edema, Normal Peripheral Pulses Gastrointestinal: Normal Bowel Sounds, Non Tender, Soft Extremity: Normal Capillary Refill, Normal Inspection, No Calf Tenderness Neurologic/Psychiatric: Alert, Oriented x3, No Motor/Sensory Deficits, Normal Mood/Affect Skin: Normal Color, Warm/Dry Progress/Results/Core Measures Results/Orders Lab Results Laboratory Tests Test 04/15/22 18:13 04/15/22 18:23 04/15/22 18:29 Range/Units White Blood Count 7.8 4.3-11.0 10^3/uL Red Blood Count 4.05 3.80-5.11 10^6/uL Hemoglobin 13.0 11.5-16.0 g/dL Hematocrit 37 35-52 % Mean Corpuscular Volume 91 80-99 fL Mean Corpuscular Hemoglobin 32 25-34 pg Mean Corpuscular Hemoglobin Concent 35 32-36 g/dL Red Cell Distribution Width 12.2 10.0-14.5 % Platelet Count 269 130-400 10^3/uL Mean Platelet Volume 10.5 9.0-12.2 fL Immature Granulocyte % (Auto) 0 % Neutrophils (%) (Auto) 51 42-75 % Lymphocytes (%) (Auto) 37 12-44 % Monocytes (%) (Auto) 6 0-12 % Eosinophils (%) (Auto) 5 0-10 % Basophils (%) (Auto) 1 0-10 % Neutrophils # (Auto) 3.9 1.8-7.8 10^3/uL Lymphocytes # (Auto) 2.9 1.0-4.0 10^3/uL Monocytes # (Auto) 0.5 0.0-1.0 10^3/uL Eosinophils # (Auto) 0.4 H 0.0-0.3 10^3/uL Basophils # (Auto) 0.1 0.0-0.1 10^3/uL Immature Granulocyte # (Auto) 0.0 0.0-0.1 10^3/uL Prothrombin Time 12.6 12.2-14.7 SEC INR Comment 0.9 0.8-1.4 Activated Partial Thromboplast Time 26 24-35 SEC Sodium Level 137 135-145 MMOL/L Potassium Level 3.5 L 3.6-5.0 MMOL/L Chloride Level 106 98-107 MMOL/L Carbon Dioxide Level 18 L 21-32 MMOL/L Anion Gap 13 5-14 MMOL/L Blood Urea Nitrogen 11 7-18 MG/DL Creatinine 0.99 0.60-1.30 MG/DL Estimat Glomerular Filtration Rate 70 BUN/Creatinine Ratio 11 Glucose Level 203 H 70-105 MG/DL Glucometer 196 H 70-110 MG/DL Calcium Level 8.7 8.5-10.1 MG/DL Corrected Calcium 9.0 8.5-10.1 MG/DL Magnesium Level 1.8 1.6-2.4 MG/DL Total Bilirubin 0.9 0.1-1.0 MG/DL Aspartate Amino Transf (AST/SGOT) 14 5-34 U/L Alanine Aminotransferase (ALT/SGPT) 17 0-55 U/L Alkaline Phosphatase 99 40-136 U/L Myoglobin 36.6 10.0-92.0 NG/ML Troponin I < 0.028 <0.028 NG/ML B-Type Natriuretic Peptide 119.3 H <100.0 PG/ML Total Protein 6.3 L 6.4-8.2 GM/DL Albumin 3.6 3.2-4.5 GM/DL Lipase 31 8-78 U/L Influenza Type A (RT-PCR) Not Detected Not Detecte Influenza Type B (RT-PCR) Not Detected Not Detecte SARS-CoV-2 RNA (RT-PCR) Not Detected Not Detecte Urine Color YELLOW Urine Clarity CLEAR Urine pH 5.5 5-9 Urine Specific [place] 1.010 L 1.016-1.022 Urine Protein NEGATIVE NEGATIVE Urine Glucose (UA) NEGATIVE NEGATIVE Urine Ketones NEGATIVE NEGATIVE Urine Nitrite NEGATIVE NEGATIVE Urine Bilirubin NEGATIVE NEGATIVE Urine Urobilinogen 0.2 < = 1.0 MG/DL Urine Leukocyte Esterase NEGATIVE NEGATIVE Urine RBC (Auto) NEGATIVE NEGATIVE Urine RBC NONE /HPF Urine WBC 2-5 /HPF Urine Squamous Epithelial Cells 0-2 /HPF Urine Renal Epithelial Cells NONE /HPF Urine Crystals NONE /LPF Urine Bacteria NEGATIVE /HPF Urine Casts NONE /LPF Urine Mucus NEGATIVE /LPF Urine Culture Indicated NO Urine Opiates Screen NEGATIVE NEGATIVE Urine Oxycodone Screen NEGATIVE NEGATIVE Urine Methadone Screen NEGATIVE NEGATIVE Urine Propoxyphene Screen NEGATIVE NEGATIVE Urine Barbiturates Screen NEGATIVE NEGATIVE Ur Tricyclic Antidepressants Screen NEGATIVE NEGATIVE Urine Phencyclidine Screen NEGATIVE NEGATIVE Urine Amphetamines Screen NEGATIVE NEGATIVE Urine Methamphetamines Screen NEGATIVE NEGATIVE Urine Benzodiazepines Screen NEGATIVE NEGATIVE Urine Cocaine Screen NEGATIVE NEGATIVE Urine Cannabinoids Screen NEGATIVE NEGATIVE My Orders Orders - LEMUEL,MARGARET J Ekg Tracing (04/15/22 18:06) Cbc With Automated Diff (04/15/22 18:19) Magnesium (04/15/22 18:19) Chest 1 View, Ap/Pa Only (04/15/22 18:19) Comprehensive Metabolic Panel (04/15/22 18:19) Myoglobin Serum (04/15/22 18:19) Protime With Inr (04/15/22 18:19) Partial Thromboplastin Time (04/15/22 18:19) O2 (04/15/22 18:19) Monitor-Rhythm Ecg Trace Only (04/15/22 18:19) Lipid Panel (04/16/22 06:00) Ed Iv/Invasive Line Start (04/15/22 18:19) Lipase (04/15/22 18:19) Bnp [place] (04/15/22 18:19) Troponin I [place] (04/15/22 18:19) Ondansetron Injection (Zofran Injectio (04/15/22 18:30) Lidocaine 2% Viscous 15 Ml (Xylocaine Vi (04/15/22 18:30) Antacid Suspension (Mylanta Suspension (04/15/22 18:30) Pantoprazole Injection (Protonix Injecti (04/15/22 18:30) Ua Culture If Indicated (04/15/22 18:22) Drug Screen Stat (Urine) (04/15/22 18:22) Covid 19 Inhouse Test (04/15/22 18:22) Influenza A And B By Pcr (04/15/22 18:22) Morphine Injection (Morphine Injection (04/15/22 20:13) Promethazine Injection (Phenergan Injec (04/15/22 20:15) Medications Given in ED Current Medications Medications Dose Ordered Sig/Sara Route Start Time Stop Time Status Last Admin Dose Admin Al Hydrox/Mg Hydrox/Simethicone 30 ml ONCE ONCE PO 04/15/22 18:30 04/15/22 18:31 DC 04/15/22 18:30 30 ML Lidocaine HCl 15 ml ONCE ONCE PO 04/15/22 18:30 04/15/22 18:31 DC 04/15/22 18:30 15 ML Ondansetron HCl 4 mg ONCE ONCE IVP 04/15/22 18:30 04/15/22 18:31 DC 04/15/22 18:30 4 MG Pantoprazole 40 mg ONCE ONCE IV 04/15/22 18:30 04/15/22 18:31 DC 04/15/22 18:30 40 MG Promethazine HCl 25 mg ONCE ONCE IVP 04/15/22 20:15 04/15/22 20:16 DC 04/15/22 20:26 25 MG Vital Signs/I&O 04/15/22 04/15/22 18:03 18:32 Temp 36.7 Pulse 74 73 76 82 Resp 17 B/P (MAP) 124/76 (92) 111/67 (82) 115/75 (88) 113/73 (86) Pulse Ox 97 O2 Delivery Room Air 04/16/22 00:00 Intake Total 200 ml Balance 200 ml Blood Pressure Mean: 92 FSBG Bedside Testing Finger Stick Blood Glucose: 196 Blood Glucose Action Taken: RN notified Progress Progress Note : Time: 18:33 Progress Note The patient has frequent bouts of what are thought to be unstable angina versus GERD. She states she is taking her outpatient medications for GERD which include pantoprazole. We will start off with a GI cocktail of lidocaine, Maalox, IV pantoprazole. If this is not helping we can try 2 mg of IV morphine which has helped in the past in general with her. We will obtain an initial troponin. Her EKG is unremarkable. Will consult with search marketing specialist on-call Dr. Aguilar. Flu and COVID swab. Another 4 mg of Zofran as she is still claiming some nausea. Initial ECG Impression Date: Apr 15, 2022 Initial ECG Impression Time: 18:10 Initial ECG Rate: 72 Initial ECG Rhythm: Normal Sinus Initial ECG Intervals: Normal Initial ECG Impression: Normal Initial ECG Comparisson: No Previous ECG Available Comment Normal sinus rhythm without clinically relevant ST changes. Diagnostic Imaging Diagonstic Imaging: Xray Plain Films/CT/US/NM/MRI: chest Comments [facility]. [place], [place] NAME: WAN DA [facility] REC#: [id number] PT STATUS: REG ER : 1975 PHYSICIAN: MARGARET HDEZ MD ADMIT DATE: 04/15/22/ER Signed Date of Exam:04/15/22 CHEST 1 VIEW, AP/PA ONLY EXAMINATION: Chest radiograph, portable AP view. DATE: 04/15/2022 6:44 PM INDICATION: 47-year-old female, chest pain. COMPARISON: April 09, 2022. FINDINGS: There are median sternotomy wires. Heart size and mediastinal contours are unchanged. There is no identified pneumothorax. There are technical limitations of the study relating to patient body habitus and difficulties with exposure. There is no definite large pleural effusion. There is no definite focal airspace consolidation. IMPRESSION: Technically limited exam without identified acute cardiopulmonary abnormality. Dictated by: Dictated on workstation # [id number] Dict: 04/15/221850 Trans: 04/15/221950 PJE [id number] Interpreted by: ANDRAE INTERIANO MD Electronically signed by: ANDRAE INTERIANO MD 04/15/221950 Reviewed: Reviewed by Me Departure Communication (Admissions) Time/Spoke to Admitting Phy: 19:00 Dr. Davies agrees to observe the patient with consult cardiology. Time/Spoke to Consulting Phy: 19:00 Dr. Aguilar agrees to consult for cardiology. She does not need to be NPO. Impression Primary Impression: Unstable angina Disposition: ADMITTED INPATIENT Condition: Stable Admissions Decision to Admit Reason: Admit from ER (General) Decision to Admit/Date: Apr 16, 2022 Time/Decision to Admit Time: 18:45 Departure-Patient Inst. Referrals: EDWAR CAHMORRO DO (PCP/Family) Primary Care Physician MARGARET HDEZ Apr 15, 2022 18:32
[2022-04-15 18:33] LABS: TOTAL PROTEIN 6.3 GM/DL (6.4-8.2)
[2022-04-15 18:35] LABS: BILIRUBIN,TOTAL 0.9 MG/DL (0.1-1.0)
[2022-04-15 18:36] LABS: BILIRUBIN,URINE NEGATIVE (NEGATIVE); CLARITY,URINE CLEAR; COLOR,URINE YELLOW; GLUCOSE, URINE (UA) NEGATIVE (NEGATIVE); KETONES,URINE NEGATIVE (NEGATIVE); LEUKOCYTE ESTERASE ,URINE NEGATIVE (NEGATIVE); NITRITE,URINE NEGATIVE (NEGATIVE); PH,URINE 5.5 (5-9); PROTEIN,URINE NEGATIVE (NEGATIVE)
[2022-04-15 18:37] LABS: CREATININE SERUM 0.99 MG/DL (0.60-1.30)
[2022-04-15 18:39] LABS: MAGNESIUM 1.8 MG/DL (1.6-2.4)
[2022-04-15 18:45] LABS: BACTERIA,URINE NEGATIVE /HPF; SQUAMOUS EPITHELIAL CELL,UR 0-2 /HPF
[2022-04-15 18:47] LABS: AMPHETAMINE SCREEN, URINE NEGATIVE (NEGATIVE); BARBITURATE SCREEN URINE NEGATIVE (NEGATIVE); BENZODIAZEPINES SCREEN URINE NEGATIVE (NEGATIVE); CANNABINOID SCREEN, URINE NEGATIVE (NEGATIVE); COCAINE SCREEN URINE NEGATIVE (NEGATIVE); METHADONE STAT NEGATIVE (NEGATIVE); OPIATE SCREEN URINE NEGATIVE (NEGATIVE); OXYCODONE STAT NEGATIVE (NEGATIVE); PROPOXYPHENE STAT NEGATIVE (NEGATIVE); TRICYCLIC ANTIDEPRESSANTS SCRE NEGATIVE (NEGATIVE)
--- NOTE | 2022-04-15 18:53 | Diagnostic Imaging Report ---
EXAMINATION: Chest radiograph, portable AP view. DATE: 04/15/2022 6:44 PM INDICATION: 47-year-old female, chest pain. COMPARISON: April 09, 2022. FINDINGS: There are median sternotomy wires. Heart size and mediastinal contours are unchanged. There is no identified pneumothorax. There are technical limitations of the study relating to patient body habitus and difficulties with exposure. There is no definite large pleural effusion. There is no definite focal airspace consolidation. IMPRESSION: Technically limited exam without identified acute cardiopulmonary abnormality. Dictated by: Dictated on workstation # [id number]
[2022-04-15] MEDS ORDERED: morphine INJ 10 MG/ML 1ML (SYR OR VIAL) IVP STA (20:13)
[2022-04-15] MEDS ORDERED: PROMETHAZINE INJ 25 MG/ML (PHENERGAN) AMP IVP ONE (20:15)
[2022-04-15] MEDS ORDERED: NITROGLYCERIN 0.4 MG SL TABS BTL 25'S SL PRN (21:45)
[2022-04-16] VITALS (7 sets, daily range): BP systolic 94–108; BP diastolic 54–77
[2022-04-16] MEDS: ONDANSETRON 4 MG/2 ML (SDV) Z0FRAN IVP PRN ×3 (00:36→15:25)
[2022-04-16] MEDS: morphine INJ 4 MG/ML 1 ML (VIAL/SYRINGE) IV PRN ×2 (00:36→09:00)
[2022-04-16] MEDS: CATHETER FLUSH 10 ML SYR IVP SCH ×4 (00:37→15:25)
[2022-04-16 05:38] LABS: BASOPHILS # (AUTO) 0.1 10^3/uL (0.0-0.1); BASOPHILS % (AUTO) 1 % (0-10); EOSINOPHILS # (AUTO) 0.4 10^3/uL (0.0-0.3); EOSINOPHILS % (AUTO) 6 % (0-10); HEMATOCRIT 36 % (35-52); HEMOGLOBIN 12.6 g/dL (11.5-16.0); LYMPHOCYTES % (AUTO) 46 % (12-44); MEAN CORPUSCULAR HEMOGLOBIN 32 pg (25-34); MEAN CORPUSCULAR HGB CONC 35 g/dL (32-36); MEAN CORPUSCULAR VOLUME 92 fL (80-99); MEAN PLATELET VOLUME 10.6 fL (9.0-12.2); MONOCYTES # (AUTO) 0.4 10^3/uL (0.0-1.0); MONOCYTES % (AUTO) 7 % (0-12); NEUTROPHILS # (AUTO) 2.8 10^3/uL (1.8-7.8); NEUTROPHILS % (AUTO) 41 % (42-75); PLATELET COUNT 261 10^3/uL (130-400); WHITE BLOOD COUNT 6.7 10^3/uL (4.3-11.0)
[2022-04-16 05:52] LABS: CHLORIDE 109 MMOL/L (98-107); POTASSIUM 3.7 MMOL/L (3.6-5.0); SODIUM 139 MMOL/L (135-145)
[2022-04-16 05:53] LABS: CALCIUM 8.5 MG/DL (8.5-10.1)
[2022-04-16 05:54] LABS: GLUCOSE 150 MG/DL (70-105)
[2022-04-16 05:55] LABS: CARBON DIOXIDE 19 MMOL/L (21-32); TRIGLYCERIDES 219 MG/DL (<150); VLDL CHOLESTEROL 44 MG/DL (5-40)
[2022-04-16 05:58] LABS: BUN/CREATININE RATIO 13; CREATININE SERUM 0.92 MG/DL (0.60-1.30); GFR ESTIMATED 76
[2022-04-16 06:00] LABS: CHOLESTEROL 137 MG/DL (< 200)
[2022-04-16 06:01] LABS: HDL CHOLESTEROL 27 MG/DL (40-60)
[2022-04-16] MEDS: inSUlin ASPART (NovoLOG) 1 UNIT/0.01 ML (CHARGE PER UNIT) SC SCH ×3 (06:17→17:08)
[2022-04-16] MEDS: ASPIRIN E.C. 81 MG (ECOTRIN) TAB PO SCH ×2 (09:03→11:07)
[2022-04-16] MEDS ORDERED: PANTOPRAZOLE 40 MG (PROTONIX) VIAL IV NR (11:00)
[2022-04-16] MEDS ORDERED: hydrOXYzine (VISTARIL/ATARAX) 25 MG capsule/tablet PO PRN (11:00)
[2022-04-16] MEDS ORDERED: CLOPIDOGREL 75 MG (PLAVIX) TABLET PO NR (11:00)
[2022-04-16] MEDS ORDERED: meTOprolol TARTRATE 25 MG (LOPRESSOR) TABLET PO NR (11:00)
[2022-04-16] MEDS ORDERED: ISOSORBIDE MONONITRATE 30 MG (IMDUR) TAB PO NR (11:00)
--- NOTE | 2022-04-16 13:33 | Consultation-Cardiology ---
HPI-Cardiology Cardiology Consultation: Date of Consultation 04/16/22 Time Seen by a Provider: 11:45 Date of Admission Attending Physician Willem Chamorro DO Admitting Physician Admitting Physician: Shonda Davies MD Attending Physician: Shonda Davies MD Consulting Physician JIMENA ROBLES MD, MA, FACP, FACC, [facility] [place], CCDS HPI: Chief Complaint: Chest discomfort 47 yo woman with chronic, recurrent chest pain, admitted last night with another episode of chest discomfort, similar to what she has had over the course of last more than two years and for which she has had multiple admissions and undergone extensive cardiac w/u. Chest discomfort started while she was sitting her couch yesterday. It was midsternal and parasternal, varied from mild to moderately severe. It was w/o aggravating or relieving factors. It resolved on its own over several hours. She has some degree of residual chest discomfort all the time and is currently back to her usual baseline. She denies palp or syncope or shortness of breath. She tires easily. She denies leg swelling. She quit smoking about 2 weeks ago. Review of Systems-Cardiology Review of Systems Constitutional: malaise, tiredness; No weight loss, No weight gain Eyes: No photophobia, No vision change Ears/Nose/Throat: No ear discharge, No nasal drainage, No recent hearing loss Respiratory: As described under HPI Cardiovascular: As described under HPI Gastrointestinal: No diarrhea, No nausea, No vomiting Genitourinary: No dysuria, No hematuria, No urine frequency changes Musculoskeletal: back pain (chronic) Skin: No rash, No ulcerations Psychiatric/Neurological: No seizure, No focal weakness, No syncope Hematologic: No bleeding abnormalities All Other Systems Reviewed Negative Unless Noted: Yes YUN-Sxciin-Sjlojk Hx Patient Social History Smoking Status: Former Smoker 2nd Hand Smoke Exposure: No Alcohol Use?: No Pt feels they are or have been: No Tobacco type used: Cigarettes Immunizations Up To Date Tetanus Booster (TDap): More than 5yrs Date of Pneumonia Vaccine: Jun 20, 2013 Date of Influenza Vaccine: May 09, 2021 Past Medical History PMH As described under Assessment. Family Medical History Family Medical History: She states her father had a myocardial infarction at the age of 25. Allergies and Home Medications Allergies Coded Allergies: Penicillins (Verified Allergy, Unknown, 05/16/21) Sulfa (Sulfonamide Antibiotics) (Verified Allergy, Unknown, 05/16/21) naproxen (Verified Allergy, Unknown, HIVES, NAUSEA--can take ibuprofen, 05/16/21) Patient Home Medication List Home Medication List Reviewed: Yes Aripiprazole (Abilify) 15 Mg Tablet, 7.5 MG PO DAILY, (Reported) Entered as Reported by: SONJA OH on 06/27/21 1036 Aspirin (Aspirin EC) 81 Mg Tablet.dr, 81 MG PO DAILY, (Reported) Entered as Reported by: SONJA OH on 05/24/21 0959 Atorvastatin Calcium (Atorvastatin Calcium) 80 Mg Tablet, 80 MG PO HS Prescribed by: MITCHELL LEBRON on 04/10/22 1423 Clopidogrel Bisulfate (Plavix) 75 Mg Tablet, 75 MG PO DAILY, (Reported) Entered as Reported by: SONJA OH on 05/26/21 1059 Eszopiclone (Lunesta) 2 Mg Tablet, 2 MG PO HS, (Reported) Entered as Reported by: DOLORES LARIOS on 08/15/21 1555 Ezetimibe (Ezetimibe) 10 Mg Tablet, 10 MG PO HS Prescribed by: MITCHELL LEBRON on 04/10/22 1423 Hydroxyzine HCl (Hydroxyzine HCl) 25 Mg Tablet, 25 MG PO BID PRN for ANXIETY, (Reported) Entered as Reported by: SONJA OH on 06/27/21 1036 Ibuprofen (Advil) 200 Mg Tablet, 200 MG PO Q8H PRN for PAIN-MILD (1-4), (Reported) Entered as Reported by: DOLORES LARIOS on 04/10/22 1409 Isosorbide Mononitrate (Isosorbide Mononitrate ER) 30 Mg Tab.er.24h, 30 MG PO DAILY Prescribed by: MITCHELL LEBRON on 04/10/22 1423 Metformin HCl (Metformin HCl) 500 Mg Tablet, 500 MG PO DAILY, (Reported) Entered as Reported by: DOLORES LARIOS on 08/15/21 1552 Metoprolol Tartrate (Metoprolol Tartrate) 25 Mg Tablet, 12.5 MG PO BID, (Reported) Entered as Reported by: OSNJA OH on 05/26/21 1059 Nitroglycerin (Nitroglycerin) 0.3 Mg Tab.subl, 0.3 MG SL UD PRN for CHEST PAIN (ANGINA), (Reported) Entered as Reported by: DOLORES LARIOS on 04/10/22 1407 Pantoprazole Sodium (Pantoprazole Sodium) 40 Mg Tablet.dr, 40 MG PO BID Prescribed by: MITCHELL LEBRON on 04/10/22 1423 Sertraline HCl (Sertraline HCl) 100 Mg Tablet, 100 MG PO HS, (Reported) Entered as Reported by: SONJA OH on 06/27/21 1036 Varenicline Tartrate (Varenicline) 0.5 Mg (11)-1 Mg (42) Tab.ds.pk, 1 TAB PO UD, (Reported) Entered as Reported by: DOLORES LARIOS on 04/10/22 1406 Physical Exam-Cardiology Physical Exam Vital Signs/I&O 04/16/22 04/16/22 04/16/22 04/16/22 04:09 07:00 07:36 08:00 Temp 36.8 36.3 Pulse 58 67 67 Resp 16 16 B/P (MAP) 94/54 (67) 103/71 (82) Pulse Ox 95 92 92 O2 Delivery Room Air Room Air Room Air 04/16/22 04/16/22 11:28 13:16 Temp 36.1 Pulse 71 82 Resp 16 B/P (MAP) 108/77 (87) Pulse Ox 93 O2 Delivery Room Air 04/16/22 00:00 Intake Total 400 ml Balance 400 ml Capillary Refill : Less Than 3 Seconds Constitutional: AAO x 3, well-developed, well-nourished HEENT: EOMI, hearing is well preserved; No xanthelasmas are seen Neck: carotid pulses are 2 + bilaterally, with good upstrokes Respiratory: No accessory muscle use; other (fair to good, bilat air entry; somewhat prolonged exp) Cardiovascular: regular rate-rhythm, S1 and S2, systolic murmur (soft FABIAN at card base) Gastrointestinal: No tender; soft; No guarding, No rebound; audible bowel sounds Extremities: No clubbing, No cyanosis, No significant edema Neurologic/Psychiatric: oriented x 3, other (moves all limbs equally) Skin: No rash on exposed areas, No ulcerations on exposed areas Data Review Labs Laboratory Tests 04/15/22 18:13: White Blood Count 7.8, Red Blood Count 4.05, Hemoglobin 13.0, Hematocrit 37, Mean Corpuscular Volume 91, Mean Corpuscular Hemoglobin 32, Mean Corpuscular Hemoglobin Concent 35, Red Cell Distribution Width 12.2, Platelet Count 269, Mean Platelet Volume 10.5, Immature Granulocyte % (Auto) 0, Neutrophils (%) (Auto) 51, Lymphocytes (%) (Auto) 37, Monocytes (%) (Auto) 6, Eosinophils (%) (A uto) 5, Basophils (%) (Auto) 1, Neutrophils # (Auto) 3.9, Lymphocytes # (Auto) 2.9, Monocytes # (Auto) 0.5, Eosinophils # (Auto) 0.4H, Basophils # (Auto) 0.1, Immature Granulocyte # (Auto) 0.0, Prothrombin Time 12.6, INR Comment 0.9, Activated Partial Thromboplast Time 26, Sodium Level 137, Potassium Level 3.5L, Chloride Level 106, Carbon Dioxide Level 18L, Anion Gap 13, Blood Urea Nitrogen 11, Creatinine 0.99, Estimat Glomerular Filtration Rate 70, BUN/Creatinine Ratio 11, Glucose Level 203H, Glucometer 196H, Calcium Level 8.7, Corrected Calcium 9.0, Magnesium Level 1.8, Total Bilirubin 0.9, Aspartate Amino Transf (AST/SGOT) 14, Alanine Aminotransferase (ALT/SGPT) 17, Alkaline Phosphatase 99, Myoglobin 36.6, Troponin I < 0.028, B-Type Natriuretic Peptide 119.3H, Total Protein 6.3L, Albumin 3.6, Lipase 31 04/15/22 18:23: Influenza Type A (RT-PCR) Not Detected, Influenza Type B (RT-PCR) Not Detected, SARS-CoV-2 RNA (RT-PCR) Not Detected 04/15/22 18:29: Urine Color YELLOW, Urine Clarity CLEAR, Urine pH 5.5, Urine Specific [place] 1.010L, Urine Protein NEGATIVE, Urine Glucose (UA) NEGATIVE, Urine Ketones NEGATIVE, Urine Nitrite NEGATIVE, Urine Bilirubin NEGATIVE, Urine Urobilinogen 0.2, Urine Leukocyte Esterase NEGATIVE, Urine RBC (Auto) NEGATIVE, Urine RBC NONE, Urine WBC 2-5, Urine Squamous Epithelial Cells 0-2, Urine Renal Epithelial Cells NONE, Urine Crystals NONE, Urine Bacteria NEGATIVE, Urine Casts NONE, Urine Mucus NEGATIVE, Urine Culture Indicated NO, Urine Opiates Screen NEGATIVE, Urine Oxycodone Screen NEGATIVE, Urine Methadone Screen NEGATIVE, Urine Propo xyphene Screen NEGATIVE, Urine Barbiturates Screen NEGATIVE, Ur Tricyclic Antidepressants Screen NEGATIVE, Urine Phencyclidine Screen NEGATIVE, Urine Amphetamines Screen NEGATIVE, Urine Methamphetamines Screen NEGATIVE, Urine Benzodiazepines Screen NEGATIVE, Urine Cocaine Screen NEGATIVE, Urine Daryn abinoids Screen NEGATIVE 04/16/22 00:20: Troponin I < 0.028 04/16/22 05:03: White Blood Count 6.7, Red Blood Count 3.90, Hemoglobin 12.6, Hematocrit 36, Mean Corpuscular Volume 92, Mean Corpuscular Hemoglobin 32, Mean Corpuscular Hemoglobin Concent 35, Red Cell Distribution Width 12.5, Platelet Count 261, Mean Platelet Volume 10.6, Immature Granulocyte % (Auto) 0, Neutrophils (%) (Auto) 41L, Lymphocytes (%) (Auto) 46H, Monocytes (%) (Auto) 7, Eosinophils (%) (Auto) 6, Basophils (%) (Auto) 1, Neutrophils # (Auto) 2.8, Lymphocytes # (Auto) 3.0, Monocytes # (Auto) 0.4, Eosinophils # (Auto) 0.4H, Basophils # (Auto) 0.1, Immature Granulocyte # (Auto) 0.0, Sodium Level 139, Potassium Level 3.7, Chloride Level 109H, Carbon Dioxide Level 19L, Anion Gap 11, Blood Urea Nitrogen 12, Creatinine 0.92, Estimat Glomerular Filtration Rate 76, BUN/Creatinine Ratio 13, Glucose Level 150H, Calcium Level 8.5, Troponin I < 0.028, Triglycerides Level 219H, Cholesterol Level 137, LDL Cholesterol Direct 85, VLDL Cholesterol 44H, HDL Cholesterol 27L 04/16/22 11:01: Glucometer 137H Laboratory Tests 04/15/22 18:13 04/16/22 05:03 A/P-Cardiology Assessment/Admission Diagnosis Non-specific chest pain - undetermined etiology - no evidence of ACS CAD: - H/o CABG in 2009. -Last HI on 04/23/20 due to mid-vessel, instent occlusion of RCA, treated with ballon angioplasty and stenting with Xience Radha 2.25x33 stent that was post- dilated to 3 mm kevin (Dr Bartlett). LAD had mild instent restenosis in prox LAD, LCX had patent stent, LVEDP 32 mmHg, preserved LV function, patent SVG to a diag, atretic LOPEZ to LAD. - MPI of 05-17-21: Inferior wall myocardial infarction with a small amount of ted-infarct ischemia. Inferior wall hypokinesis. Well preserved global left ventricular systolic function with ejection fraction of 54%. - Echo of 04/23/20: LVEF 55-60%, mild dil LA,mild to mod MR, PASP 25-30 mmHg - Card cath on 05/24/21: patent stents in the L cor system, occluded/atretic LOPEZ to LAD, patent SVG to an OM with 70% ostial stenosis that was successfully stented on 05/24/21 with Radha 2.5 x 18 mm stent (deployed at 20 [place]), midvessel instent occlusion of RCA and 90% proximal instent stenosis of RCA, prox RCA stenosis reduced to 50% with balloon angioplasty, distal RCA occlusion could not be opened up, LVEDP 17 mmHg - Cardiac cath of 08-15-[address] Jay Normal central aortic pressure with elevated left ventricular end-diastolic pressure. Patent stent in the mid left anterior descending coronary artery. Total occlusion of the mid right coronary artery within previously placed stents. This is known to be a chronic total occlusion. The left internal mammary artery graft to left anterior descending coronary artery is known to be atretic and was not studied during this procedure. Patent saphenous vein graft to the obtuse marginal branch with a patent stent in the ostium. COPD - managed by PCP GI - Mod hiatal hernia seen on CT of chest on 02-03-21 and again on CTA of the chest on 12-16-21 - H/o erosive esophagitis Chronically abnormal ECG (shows IMI) Tobaccoism - cessation advised Hyperlipidemia - being treated with atorvastatin - managed by PCP History of maturity onset diabetes mellitus. - managed by PCP Obesity - with a body mass index of approx 36 Body habitus and daytime somnolence is suggestive of REINA - sleep studies advised Discussion and Recomendations * Cardiac status is stable. Chronically abnormal ECG (old IMI) is stable. Serial cardiac enzymes are normal * Advised to continue to refrain from smoking * Cor risk factor mod discussed * Advised compliance with previous cardiac regimen * We advise a w/u for noncardiac causes of chest pain, given her multiple admissions with chest pain w/o evidence of ACS Clinical Quality Measures Smoking Cessation Counseling: Counseling-Symptomatic: 3-10 Minutes JIMENA ROBLES MD FACP FAC CCDS Apr 16, 2022 13:33
--- NOTE | 2022-04-16 17:30 | Short Stay Summary-Hospitalist ---
History of Present Illness HPI/Chief Complaint Melanie Champagne is a 47 year old female with PMH CAD, GERD, who was admitted with chest pain. She has had multiple visits with similar complaints. She has a history of CABG and stents. She also has a history of GERD with Geri and hiatal hernia. She was having substernal chest pressure with radiation to her neck. She also reported nausea. Source: patient Exam Limitations: no limitations Date Seen 04/16/22 Time Seen by a Provider: 10:35 Attending Physician Willem Chamorro DO PCP Admitting Physician: Raine Hernandez MD Attending Physician: Raine Hernandez MD Referring Physician Date of Admission Apr 15, 2022 at 20:20 Home Medications & Allergies Home Medications Reviewed patient Home Medication Reconciliation performed by pharmacy medication reconciliations senior manufacturing technician and/or nursing. Patients Allergies have been reviewed. Allergies Allergies Coded Allergies Penicillins (Verified Allergy, Unknown, 05/16/21) Sulfa (Sulfonamide Antibiotics) (Verified Allergy, Unknown, 05/16/21) naproxen (Verified Allergy, Unknown, HIVES, NAUSEA--can take ibuprofen, 05/16/21) Past Lxmpchz-Gfulqo-Ujevwu Hx Patient Social History Tobacco Use?: Yes Tobacco type used: Cigarettes Smoking Status: Former Smoker Use of E-Cig and/or Vaping dev: Yes E-Cig or Vaping type used: Nicotine Substance use?: No Alcohol Use?: No Pt feels they are or have been: No Immunizations Up To Date Date of Influenza Vaccine: May 09, 2021 First/Initial COVID19 Vaccinat: not vaccinated Second COVID19 Vaccination Mark: not vaccinated Tetanus Booster (TDap): Unknown Date of Pneumonia Vaccine: Jun 20, 2013 Seasonal Allergies Seasonal Allergies: No Current Status status: No status: No Advance Directives: No Communicates: Verbally Primary Language: Central African Preferred Spoken Language: Central African Is interpretation needed?: No Sensory deficits: Vision impairment Implanted or Applied Medical D: Orthopedic hardware, Stents Past Medical History Surgeries: Abdominal, Adenoidectomy, Cardiac, CABG, Coronary Stent, Ear Surgery, Gallbladder, Orthopedic, Tonsillectomy, Tracheostomy Asthma, Chronic Bronchitis, COPD Coronary Artery Disease, Deep Vein Thrombosis, Heart Attack, High Cholesterol, Hypertension Headaches /Migraines, Seizure Disorder Sexually Transmitted Disease: Yes (HERPES) Gastroesophageal Reflux, Esophagitis, Hiatal Hernia, Gall Bladder Disease Arthritis Hypothyroidsim, Diabetes, Non-Insulin dep Chronic Ear Infection Hearing Impairment: Hard of Hearing Cervical Did You Recieve Any Treatments: Yes What Type of Treatment Did You: Surgical Intervention Sleep Difficulties, Anxiety, Suicide Attempts, Depression Blood Disorders: No Adverse Reaction/Blood Tranf: No See Problem List Family Medical History Heart Disease SEE OLD CHARTS FOR DETAILS Review of Systems Constitutional: no symptoms reported EENTM: no symptoms reported Respiratory: no symptoms reported Cardiovascular: chest pain Physical Exam Physical Exam Vital Signs Vital Signs - First Documented 04/15/22 04/16/22 18:03 16:30 Temp 36.7 Pulse 74 Resp 17 B/P (MAP) 124/76 (92) Pulse Ox 97 O2 Delivery Room Air O2 Flow Rate 2.00 Capillary Refill : Less Than 3 Seconds Height, Weight, BMI Height: 5'8.00" Weight: 189lbs. 0.0oz. [id number]; 37.78 BMI Method:Stated General Appearance: No Apparent Distress, Obese HEENT: PERRL/EOMI, Pharynx Normal; No Moist Mucous Membranes Neck: Normal Inspection, Supple Respiratory: Chest Non Tender, Lungs Clear, Normal Breath Sounds, No Respiratory Distress Cardiovascular: Regular Rate, Rhythm, No Edema, Normal Peripheral Pulses Gastrointestinal: Normal Bowel Sounds, Non Tender, Soft Extremity: Normal Inspection, Non Tender Neurologic/Psychiatric: Alert, Oriented x3, No Motor/Sensory Deficits, Other (flat affect) Skin: Normal Color, Warm/Dry Results Results/Procedures Labs Laboratory Tests 04/15/22 18:13 04/16/22 05:03 Patient resulted labs reviewed. Imaging: Reviewed Imaging Report Short Stay Diagnosis Discharge Diagnosis-Short Stay Admission Diagnosis Chest pain Final Discharge Diagnosis Chest pain Conclusion Plan Chest pain CAD GERD Troponin and EKG unremarkable Cardiology consulted, no further evaluation recommended at this time Continue current medications Follow up with surgery, Dr. Schmidt on Sunday for evaluation and possible EGD Follow up with Dr. Chamorro, PCP, as scheduled Diagnosis/Problems Diagnosis/Problems (1) Chest pain Status: Acute (2) CAD (coronary artery disease) Status: Acute (3) Hiatal hernia with GERD Status: Acute Clinical Quality Measures Smoking Cessation Counseling: Counseling-Symptomatic: 3-10 Minutes RAINE HERNANDEZ MD Apr 16, 2022 17:30
[2022-04-16] MEDS ORDERED: meTOprolol TARTRATE 25 MG (LOPRESSOR) TABLET PO SCH (21:00)
[2022-04-16] MEDS ORDERED: SERTRALINE 100 MG (ZOLOFT) TAB PO SCH (21:00)
[2022-04-17] MEDS ORDERED: PANTOPRAZOLE 40 MG (PROTONIX) VIAL IV SCH (09:00)
[2022-04-17] MEDS ORDERED: ISOSORBIDE MONONITRATE 30 MG (IMDUR) TAB PO SCH (09:00)
[2022-04-17] MEDS ORDERED: CLOPIDOGREL 75 MG (PLAVIX) TABLET PO SCH (09:00)
== END 2022-04-16 16:03 | disposition home or self-care (01) ==
LOC: EDUNIT# 18:02 → ER 18:03 → 4TH 20:20 → UNDOADMOB 20:20 → 4TH 22:07 → UNDODISOB 04-16 18:00
PROVIDERS: ADMIT Internal Medicine; ATTEND Internal Medicine
DX: R07.9 Chest pain, unspecified (principal); I25.10 Atherosclerotic heart disease of native coronary artery without angina pectoris; K44.9 Diaphragmatic hernia without obstruction or gangrene; K21.9 Gastro-esophageal reflux disease without esophagitis; Z79.82 Long term (current) use of aspirin; Z79.899 Other long term (current) drug therapy; R94.31 Abnormal electrocardiogram [ECG] [EKG]; J44.9 Chronic obstructive pulmonary disease, unspecified; F17.210 Nicotine dependence, cigarettes, uncomplicated; E11.9 Type 2 diabetes mellitus without complications; E78.5 Hyperlipidemia, unspecified; E66.9 Obesity, unspecified; Z68.37 Body mass index [BMI] 37.0-37.9, adult
CPT/HCPCS: 71045; 80048; 80053; 80061; 80306; 81000; 82947 ×2; 83690; 83735; 83874; 83880; 84484 ×2; 85025 ×2; 85610; 85730; 87636; 93005 ×2; 93041; 94761; 96376; 99284; G0378; 36415

== ENCOUNTER 2022-04-22 21:40 | Emergency (ER) | payer OTHER, MEDICARE, MEDICAID ==
[~2022-04-22] VITALS: Ht 173 cm; Wt 113.0 kg
[2022-04-22 22:26] LABS: BASOPHILS # (AUTO) 0.1 10^3/uL (0.0-0.1); BASOPHILS % (AUTO) 1 % (0-10); EOSINOPHILS # (AUTO) 0.4 10^3/uL (0.0-0.3); EOSINOPHILS % (AUTO) 6 % (0-10); HEMATOCRIT 36 % (35-52); HEMOGLOBIN 12.4 g/dL (11.5-16.0); LYMPHOCYTES # (AUTO) 2.9 10^3/uL (1.0-4.0); LYMPHOCYTES % (AUTO) 41 % (12-44); MEAN CORPUSCULAR HEMOGLOBIN 32 pg (25-34); MEAN CORPUSCULAR HGB CONC 34 g/dL (32-36); MEAN CORPUSCULAR VOLUME 92 fL (80-99); MEAN PLATELET VOLUME 10.5 fL (9.0-12.2); MONOCYTES # (AUTO) 0.4 10^3/uL (0.0-1.0); MONOCYTES % (AUTO) 6 % (0-12); NEUTROPHILS # (AUTO) 3.3 10^3/uL (1.8-7.8); NEUTROPHILS % (AUTO) 46 % (42-75); PLATELET COUNT 253 10^3/uL (130-400); WHITE BLOOD COUNT 7.1 10^3/uL (4.3-11.0)
[2022-04-22 22:42] LABS: INR 0.9 (0.8-1.4); PROTHROMBIN TIME PATIENT 12.6 SEC (12.2-14.7)
[2022-04-22 22:46] LABS: ALBUMIN 3.5 GM/DL (3.2-4.5); POTASSIUM 3.7 MMOL/L (3.6-5.0)
[2022-04-22 22:47] LABS: CALCIUM 8.9 MG/DL (8.5-10.1)
[2022-04-22 22:48] LABS: TOTAL PROTEIN 6.2 GM/DL (6.4-8.2)
[2022-04-22 22:50] LABS: BILIRUBIN,TOTAL 0.7 MG/DL (0.1-1.0)
[2022-04-22 22:52] LABS: CREATININE SERUM 1.14 MG/DL (0.60-1.30)
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
[2022-04-22] MEDS ORDERED: CYCL10TA25 PO (23:31)
[2022-04-22] MEDS ORDERED: RX-CYCLOBENZAPRINE 10 MG (FLEXERIL) TAB PPK#3 PO STA (23:31)
[2022-04-22 23:37] VITALS: BP 158/87
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
== END 2022-04-22 23:56 | disposition home or self-care (01) ==
LOC: EDUNIT# 21:40 → ER 21:43
DX: S09.90XA Unspecified injury of head, initial encounter (principal); S16.1XXA Strain of muscle, fascia and tendon at neck level, initial encounter; S80.11XA Contusion of right lower leg, initial encounter; Z87.891 Personal history of nicotine dependence; Z28.310 Unvaccinated for COVID-19; V89.2XXA Person injured in unspecified motor-vehicle accident, traffic, initial encounter; Y92.410 Unspecified street and highway as the place of occurrence of the external cause
CPT/HCPCS: 70450; 70486; 71045; 72125; 72128; 72131; 72170; 73552; 73590; 80053; 85025; 85610; 85730; 93041; 99283; G0480; 36415; 80320

== ENCOUNTER 2022-04-30 18:29 | Emergency (ER) | payer OTHER, MEDICARE, MEDICAID ==
[~2022-04-30] VITALS: Ht 172.7 cm; Wt 113.4 kg
[~2022-04-30 18:29] MED LIST changes: +CYCL10TA25 PO
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
[2022-04-30] MEDS ORDERED: OXYC1TAB87 PO (19:22)
[2022-04-30] MEDS ORDERED: methylPREDNISolone 40 MG/ML (DEPO MEDROL) VIAL IM ONE (19:30)
[2022-04-30] MEDS ORDERED: RX-OXYCODONE/APAP 5-325 MG #4 TAB PK PO PRN (19:30)
[2022-04-30 19:39] VITALS: BP 144/90
== END 2022-04-30 19:39 | disposition home or self-care (01) ==
LOC: EDUNIT# 18:29 → ER 18:34
DX: M54.41 Lumbago with sciatica, right side (principal); E11.9 Type 2 diabetes mellitus without complications; E66.01 Morbid (severe) obesity due to excess calories; Z68.37 Body mass index [BMI] 37.0-37.9, adult; Z79.84 Long term (current) use of oral hypoglycemic drugs; Z88.6 Allergy status to analgesic agent; Z28.310 Unvaccinated for COVID-19; V89.2XXA Person injured in unspecified motor-vehicle accident, traffic, initial encounter; Y92.410 Unspecified street and highway as the place of occurrence of the external cause
CPT/HCPCS: 99284

== ENCOUNTER 2022-06-04 02:08 | Observation (INO) | payer MEDICARE, MEDICAID ==
[~2022-06-04] VITALS: Ht 172.7 cm; Wt 107.8 kg
[~2022-06-04 02:08] MED LIST changes: +ALBU8.5H6 IH; +OXYC1TAB87 PO; -RT-ALBUINH IH
[2022-06-04 02:18] LABS: BASOPHILS % (AUTO) 0 % (0-10); EOSINOPHILS # (AUTO) 0.1 10^3/uL (0.0-0.3); EOSINOPHILS % (AUTO) 1 % (0-10); HEMATOCRIT 37 % (35-52); HEMOGLOBIN 12.7 g/dL (11.5-16.0); LYMPHOCYTES # (AUTO) 2.8 10^3/uL (1.0-4.0); LYMPHOCYTES % (AUTO) 27 % (12-44); MEAN CORPUSCULAR HEMOGLOBIN 32 pg (25-34); MEAN CORPUSCULAR HGB CONC 35 g/dL (32-36); MEAN CORPUSCULAR VOLUME 91 fL (80-99); MEAN PLATELET VOLUME 10.7 fL (9.0-12.2); MONOCYTES # (AUTO) 0.6 10^3/uL (0.0-1.0); MONOCYTES % (AUTO) 6 % (0-12); NEUTROPHILS % (AUTO) 66 % (42-75); PLATELET COUNT 306 10^3/uL (130-400); WHITE BLOOD COUNT 10.6 10^3/uL (4.3-11.0)
[2022-06-04] MEDS ORDERED: methylPREDNISolone 125 MG (Solu-MEDROL) VIAL IV STA (02:20)
[2022-06-04] MEDS ORDERED: RT-ALBUTEROL/IPRATROPIUM 3 ML (DUONEB) VIAL INH ONE (02:30)
[2022-06-04 02:33] LABS: ALBUMIN 3.6 GM/DL (3.2-4.5); POTASSIUM 3.8 MMOL/L (3.6-5.0)
[2022-06-04 02:34] LABS: CALCIUM 8.9 MG/DL (8.5-10.1); INR 0.9 (0.8-1.4); PROTHROMBIN TIME PATIENT 12.3 SEC (12.2-14.7)
[2022-06-04 02:35] LABS: TOTAL PROTEIN 6.6 GM/DL (6.4-8.2)
[2022-06-04 02:37] LABS: BILIRUBIN,TOTAL 0.5 MG/DL (0.1-1.0)
[2022-06-04 02:39] LABS: CREATININE SERUM 1.37 MG/DL (0.60-1.30)
[2022-06-04 02:42] LABS: MAGNESIUM 1.6 MG/DL (1.6-2.4)
[2022-06-04 02:50] LABS: CREATINE KINASE MB 2.2 NG/ML (<6.6)
[2022-06-04 03:12] LABS: AMPHETAMINE SCREEN, URINE NEGATIVE (NEGATIVE); BARBITURATE SCREEN URINE NEGATIVE (NEGATIVE); BENZODIAZEPINES SCREEN URINE NEGATIVE (NEGATIVE); CANNABINOID SCREEN, URINE POSITIVE (NEGATIVE); COCAINE SCREEN URINE NEGATIVE (NEGATIVE); METHADONE STAT NEGATIVE (NEGATIVE); OPIATE SCREEN URINE NEGATIVE (NEGATIVE); OXYCODONE STAT NEGATIVE (NEGATIVE); PROPOXYPHENE STAT NEGATIVE (NEGATIVE); TRICYCLIC ANTIDEPRESSANTS SCRE NEGATIVE (NEGATIVE)
[2022-06-04] MEDS ORDERED: inSUlin (REGULAR) HUMAN 1 UNIT/0.01 ML (CHARGE PER UNIT) IV ONE (03:45)
[2022-06-04] MEDS ORDERED: NS IV 1000 ML 1,000 ML IV SCH ×2 (03:45→06:15)
--- NOTE | 2022-06-04 04:38 | ED Chest Pain ---
General Chief Complaint: Chest Pain Stated Complaint: CHEST PAIN/SOA Nursing Triage Note: PT ARRIVAL TO ER [facility]IA [facility] WITH COMPLAINT CHEST PAIN / SOA X1 HOUR. PAIN IS DESCRIBED SHARP, STABBING, HEAVINESS, PRESSURE, SQUEEZING LIKE PAIN. PAIN AT 7/10. PT STATES THAT SHE WOKE UP TO THIS PAIN. Source: patient, old records History of Present Illness Date Seen by Provider: Jun 04, 2022 Allergies and Home Medications Allergies Coded Allergies: Penicillins (Verified Allergy, Unknown, 05/16/21) Sulfa (Sulfonamide Antibiotics) (Verified Allergy, Unknown, 05/16/21) naproxen (Verified Allergy, Unknown, HIVES, NAUSEA--can take ibuprofen, 05/16/21) Patient Home Medication List Aripiprazole (Abilify) 15 Mg Tablet, 7.5 MG PO DAILY, (Reported) Entered as Reported by: SONJA OH on 06/27/21 1036 Aspirin (Aspirin EC) 81 Mg Tablet.dr, 81 MG PO DAILY, (Reported) Entered as Reported by: SONJA OH on 05/24/21 0959 Atorvastatin Calcium (Atorvastatin Calcium) 80 Mg Tablet, 80 MG PO HS Prescribed by: MITCHELL LEBRON on 04/10/22 1423 Clopidogrel Bisulfate (Plavix) 75 Mg Tablet, 75 MG PO DAILY, (Reported) Entered as Reported by: SONJA OH on 05/26/21 1059 Cyclobenzaprine HCl (Cyclobenzaprine HCl) 10 Mg Tablet, 10 MG PO Q8H PRN for SPASMS Prescribed by: HEATH CAMARILLO on 04/22/22 2331 Eszopiclone (Lunesta) 2 Mg Tablet, 2 MG PO HS, (Reported) Entered as Reported by: DOLORES LARIOS on 08/15/21 1555 Ezetimibe (Ezetimibe) 10 Mg Tablet, 10 MG PO HS Prescribed by: MITCHELL LEBRON on 04/10/22 1423 Hydroxyzine HCl (Hydroxyzine HCl) 25 Mg Tablet, 25 MG PO BID PRN for ANXIETY, (Reported) Entered as Reported by: SONJA OH on 06/27/21 1036 Ibuprofen (Advil) 200 Mg Tablet, 200 MG PO Q8H PRN for PAIN-MILD (1-4), (Reported) Entered as Reported by: DOLORES LARIOS on 04/10/22 1409 Isosorbide Mononitrate (Isosorbide Mononitrate ER) 30 Mg Tab.er.24h, 30 MG PO DAILY Prescribed by: MITCHELL LEBRON on 04/10/22 1423 Metformin HCl (Metformin HCl) 500 Mg Tablet, 500 MG PO DAILY, (Reported) Entered as Reported by: DOLORES LARIOS on 08/15/21 1552 Metoprolol Tartrate (Metoprolol Tartrate) 25 Mg Tablet, 12.5 MG PO BID, (Reported) Entered as Reported by: SONJA OH on 05/26/21 1059 Nitroglycerin (Nitroglycerin) 0.3 Mg Tab.subl, 0.3 MG SL UD PRN for CHEST PAIN (ANGINA), (Reported) Entered as Reported by: DOLORES LARIOS on 04/10/22 1407 Oxycodone HCl/Acetaminophen (Percocet 5-325 mg Tablet) 1 Each Tablet, 1 TAB PO Q6H PRN for PAIN-BREAKTHROUGH Prescribed by: MARGARET HDEZ on 04/30/22 1924 Pantoprazole Sodium (Pantoprazole Sodium) 40 Mg Tablet.dr, 40 MG PO BID Prescribed by: MITCHELL LEBRON on 04/10/22 1423 Sertraline HCl (Sertraline HCl) 100 Mg Tablet, 100 MG PO HS, (Reported) Entered as Reported by: SONJA OH on 06/27/21 1036 Varenicline Tartrate (Varenicline) 0.5 Mg (11)-1 Mg (42) Tab.ds.pk, 1 TAB PO UD, (Reported) Entered as Reported by: DOLORES LARIOS on 04/10/22 1406 Review of Systems Review of Systems Genitourinary: Other (LMP 2006. NO CONTROL, NO HYSTERECTOMY OR BTL. PT IS SEXUALLY ACTIVE. ) Past Chujqwd-Mxgqnf-Huhwxh Hx Patient Social History Tobacco Use?: Yes Smoking Status: Current Everyday Smoker Use of E-Cig and/or Vaping dev: No Substance use?: Yes Substance type: Marijuana Alcohol Use?: No Pt feels they are or have been: No Immunizations Up To Date Tetanus Booster (TDap): More than 5yrs Influenza Vaccine Up-to-Date: No; Not Current First/Initial COVID19 Vaccinat: not vaccinated Second COVID19 Vaccination Mark: not vaccinated Third COVID19 Vaccination Date: not vaccinated Seasonal Allergies Seasonal Allergies: No Past Medical History Surgery/Hospitalization HX: CABG, VEIN HARVEST, T/A, CORNARY STENT, CHOLECYSTECTOMY, TRACH/REVERSAL, ASTHMA, CAD, HTN, NH, BOWSER, SEIZURE, HERPES, CERVICAL CA, FABRICE FUNDIPLICATION, ANXIETY/DEPRESSION, SUICIDE ATTEMPTS. 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, Menopausal Sexually Transmitted Disease: Yes (HERPES) Genitourinary: No Gastrointestinal: Yes (S/P FABRICE FUNDOPLICATION) Gastroesophageal Reflux, Esophagitis, Hiatal Hernia, Gall Bladder Disease Musculoskeletal: Yes Arthritis Endocrine: Yes (MORBID OBESITY) Hypothyroidsim, Diabetes, Non-Insulin dep HEENT: Yes Chronic Ear Infection Hearing Impairment: Hard of Hearing Cancer: Yes Cervical Did You Recieve Any Treatments: Yes What Type of Treatment Did You: Surgical Intervention Psychosocial: Yes Sleep Difficulties, Anxiety, Suicide Attempts, Depression Integumentary: No Blood Disorders: No Adverse Reaction/Blood Tranf: No Family Medical History Heart Disease SEE OLD CHARTS FOR DETAILS Physical Exam Vital Signs Vital Signs - First Documented 06/04/22 02:09 Temp 36.3 Pulse 89 Resp 20 B/P (MAP) 112/70 (84) Pulse Ox 96 O2 Delivery Room Air Capillary Refill : Less Than 3 Seconds Height, Weight, BMI Height: 5'8.00" Weight: 189lbs. 0.0oz. 85.053205bg; 38.00 BMI Method:Stated Progress/Results/Core Measures Results/Orders Lab Results Laboratory Tests Test 06/04/22 02:10 06/04/22 02:25 06/04/22 02:35 06/04/22 03:36 Range/Units White Blood Count 10.6 4.3-11.0 10^3/uL Red Blood Count 4.01 3.80-5.11 10^6/uL Hemoglobin 12.7 11.5-16.0 g/dL Hematocrit 37 35-52 % Mean Corpuscular Volume 91 80-99 fL Mean Corpuscular Hemoglobin 32 25-34 pg Mean Corpuscular Hemoglobin Concent 35 32-36 g/dL Red Cell Distribution Width 12.1 10.0-14.5 % Platelet Count 306 130-400 10^3/uL Mean Platelet Volume 10.7 9.0-12.2 fL Immature Granulocyte % (Auto) 1 % Neutrophils (%) (Auto) 66 42-75 % Lymphocytes (%) (Auto) 27 12-44 % Monocytes (%) (Auto) 6 0-12 % Eosinophils (%) (Auto) 1 0-10 % Basophils (%) (Auto) 0 0-10 % Neutrophils # (Auto) 7.0 1.8-7.8 10^3/uL Lymphocytes # (Auto) 2.8 1.0-4.0 10^3/uL Monocytes # (Auto) 0.6 0.0-1.0 10^3/uL Eosinophils # (Auto) 0.1 0.0-0.3 10^3/uL Basophils # (Auto) 0.0 0.0-0.1 10^3/uL Immature Granulocyte # (Auto) 0.1 0.0-0.1 10^3/uL Prothrombin Time 12.3 12.2-14.7 SEC INR Comment 0.9 0.8-1.4 Activated Partial Thromboplast Time 29 24-35 SEC D-Dimer 0.80 H 0.00-0.49 UG/ML Sodium Level 131 L 135-145 MMOL/L Potassium Level 3.8 3.6-5.0 MMOL/L Chloride Level 99 98-107 MMOL/L Carbon Dioxide Level 18 L 21-32 MMOL/L Anion Gap 14 5-14 MMOL/L Blood Urea Nitrogen 23 H 7-18 MG/DL Creatinine 1.37 H 0.60-1.30 MG/DL Estimat Glomerular Filtration Rate 47 BUN/Creatinine Ratio 17 Glucose Level 354 H 70-105 MG/DL Calcium Level 8.9 8.5-10.1 MG/DL Corrected Calcium 9.2 8.5-10.1 MG/DL Magnesium Level 1.6 1.6-2.4 MG/DL Total Bilirubin 0.5 0.1-1.0 MG/DL Aspartate Amino Transf (AST/SGOT) 10 5-34 U/L Alanine Aminotransferase (ALT/SGPT) 15 0-55 U/L Alkaline Phosphatase 127 40-136 U/L Total Creatine Kinase 78 29-168 U/L Creatine Kinase MB 2.2 <6.6 NG/ML Myoglobin 90.9 10.0-92.0 NG/ML Troponin I < 0.028 <0.028 NG/ML B-Type Natriuretic Peptide 39.8 <100.0 PG/ML Total Protein 6.6 6.4-8.2 GM/DL Albumin 3.6 3.2-4.5 GM/DL Amylase Level 33 25-125 U/L Lipase 36 8-78 U/L Serum Test, Qualitative POSITIVE NEGATIVE Influenza Type A (RT-PCR) Not Detected Not Detecte Influenza Type B (RT-PCR) Not Detected Not Detecte SARS-CoV-2 RNA (RT-PCR) Not Detected Not Detecte Urine Opiates Screen NEGATIVE NEGATIVE Urine Oxycodone Screen NEGATIVE NEGATIVE Urine Methadone Screen NEGATIVE NEGATIVE Urine Propoxyphene Screen NEGATIVE NEGATIVE Urine Barbiturates Screen NEGATIVE NEGATIVE Ur Tricyclic Antidepressants Screen NEGATIVE NEGATIVE Urine Phencyclidine Screen NEGATIVE NEGATIVE Urine Amphetamines Screen NEGATIVE NEGATIVE Urine Methamphetamines Screen NEGATIVE NEGATIVE Urine Benzodiazepines Screen NEGATIVE NEGATIVE Urine Cocaine Screen NEGATIVE NEGATIVE Urine Cannabinoids Screen POSITIVE H NEGATIVE Human Chorionic Gonadotropin, Quant 6 H <5 MIU/ML My Orders Orders - HEATH CAMARILLO DO Ed Iv/Invasive Line Start (06/04/22 02:10) Ekg Tracing (06/04/22 02:10) O2 (06/04/22 02:10) Monitor-Rhythm Ecg Trace Only (06/04/22 02:10) Cbc With Automated Diff (06/04/22 02:10) Magnesium (06/04/22 02:10) Chest 1 View, Ap/Pa Only (06/04/22 02:10) Ekg Tracing (06/04/22 02:10) Comprehensive Metabolic Panel (06/04/22 02:10) Myoglobin Serum (06/04/22 02:10) Protime With Inr (06/04/22 02:10) Partial Thromboplastin Time (06/04/22 02:10) O2 (06/04/22 02:10) Ed Iv/Invasive Line Start (06/04/22 02:10) Creatine Kinase (06/04/22 02:10) Creatine Kinase Mb (06/04/22 02:10) Lipase (06/04/22 02:10) Amylase (06/04/22 02:10) [place] (06/04/22 02:10) Fibrin Degradation Products (06/04/22 02:10) Troponin I [place] (06/04/22 02:10) Drug Screen Stat (Urine) (06/04/22 02:20) Albuterol/Ipra Inhalation Soln (Duoneb I (06/04/22 02:30) Dexamethasone Injection (Decadron Injec (06/04/22 02:30) Rt Request For Service (06/04/22 02:20) Methylprednisolone Sod Succ (Solu-Medrol (06/04/22 02:20) Covid 19 Inhouse Test (06/04/22 02:20) Svn Small Volume Nebulizer (06/04/22 02:20) Influenza A And B By Pcr (06/04/22 02:20) Isolation Central Supply Req (06/04/22 02:20) Hcg,Qualitative Serum (06/04/22 02:20) Hcg,Quantitative (06/04/22 03:34) Ed Iv/Invasive Line Start (06/04/22 03:43) Ns Iv 1000 Ml (Sodium Chloride 0.9%) (06/04/22 03:45) Insulin (Regular) Human (Novolin R (Per (06/04/22 03:45) Medications Given in ED Current Medications Medications Dose Ordered Sig/Sara Route Start Time Stop Time Status Last Admin Dose Admin Albuterol/ Ipratropium 3 ml ONCE ONCE INH 06/04/22 02:30 06/04/22 02:31 DC 06/04/22 02:43 3 ML Dexamethasone Sodium Phosphate 20 mg ONCE ONCE IH 06/04/22 02:30 06/04/22 02:31 DC 06/04/22 02:43 20 MG Insulin Human Regular 15 unit ONCE ONCE IV 06/04/22 03:45 06/04/22 03:46 DC 06/04/22 03:50 15 UNIT Vital Signs/I&O 06/04/22 06/04/22 02:09 02:39 Temp 36.3 Pulse 89 Resp 20 B/P (MAP) 112/70 (84) Pulse Ox 96 97 O2 Delivery Room Air Room Air Blood Pressure Mean: 84 Departure Communication (Admissions) 0403--SPOKE WITH DR. HERNANDEZ, HOSPITALIST, ACCEPTS PT FOR ADMIT. WILL CONSULT CARDIOLOGY IN AM. Impression Primary Impression: Chest pain Additional Impressions: CAD WITH HISTORY OF MULTIPLE INTERVENTIONS Uncontrolled type 2 diabetes mellitus Marijuana use Renal insufficiency Morbid obesity COPD (chronic obstructive pulmonary disease) Disposition: ADMITTED INPATIENT Condition: Stable Admissions Decision to Admit Reason: Admit from ER (General) Decision to Admit/Date: Jun 04, 2022 Time/Decision to Admit Time: 04:05 Departure-Patient Inst. Referrals: EDWAR LOBO DO (PCP/Family) Primary Care Physician HEATH CAMARILLO DO Jun 04, 2022 04:38
[2022-06-04 05:15] VITALS: BP 115/82
[2022-06-04 05:30] VITALS: BP 108/66
[2022-06-04] MEDS ORDERED: ONDANSETRON 4 MG/2 ML (SDV) Z0FRAN ONE (05:38)
[2022-06-04 05:45] VITALS: BP 107/75
[2022-06-04 06:00] VITALS: BP 99/59
[2022-06-04] MEDS ORDERED: morphine INJ 4 MG/ML 1 ML (VIAL/SYRINGE) IV PRN (06:15)
[2022-06-04] MEDS ORDERED: NITROGLYCERIN 0.4 MG SL TABS BTL 25'S SL PRN (06:15)
[2022-06-04] MEDS: ONDANSETRON 4 MG/2 ML (SDV) Z0FRAN IVP PRN ×2 (06:17→11:35)
[2022-06-04 06:21] LABS: BASOPHILS % (AUTO) 0 % (0-10); EOSINOPHILS % (AUTO) 0 % (0-10); HEMATOCRIT 36 % (35-52); HEMOGLOBIN 12.5 g/dL (11.5-16.0); LYMPHOCYTES # (AUTO) 1.3 10^3/uL (1.0-4.0); LYMPHOCYTES % (AUTO) 15 % (12-44); MEAN CORPUSCULAR HEMOGLOBIN 32 pg (25-34); MEAN CORPUSCULAR HGB CONC 35 g/dL (32-36); MEAN CORPUSCULAR VOLUME 93 fL (80-99); MEAN PLATELET VOLUME 10.5 fL (9.0-12.2); MONOCYTES # (AUTO) 0.3 10^3/uL (0.0-1.0); MONOCYTES % (AUTO) 3 % (0-12); NEUTROPHILS % (AUTO) 81 % (42-75); PLATELET COUNT 277 10^3/uL (130-400); WHITE BLOOD COUNT 8.6 10^3/uL (4.3-11.0)
[2022-06-04 06:53] LABS: BUN/CREATININE RATIO 21; CALCIUM 8.9 MG/DL (8.5-10.1); CARBON DIOXIDE 18 MMOL/L (21-32); CHLORIDE 106 MMOL/L (98-107); CHOLESTEROL 167 MG/DL (< 200); GFR ESTIMATED 62; GLUCOSE 235 MG/DL (70-105); HDL CHOLESTEROL 35 MG/DL (40-60); POTASSIUM 3.7 MMOL/L (3.6-5.0); SODIUM 137 MMOL/L (135-145); TRIGLYCERIDES 110 MG/DL (<150); VLDL CHOLESTEROL 22 MG/DL (5-40)
[2022-06-04 07:00] VITALS: BP 107/66
[2022-06-04] MEDS: inSUlin ASPART (NovoLOG) 1 UNIT/0.01 ML (CHARGE PER UNIT) SC SCH ×2 (07:07→11:39)
--- NOTE | 2022-06-04 07:32 | Diagnostic Imaging Report ---
INDICATION: Fall with chest pain. COMPARISON: 04/22/2022. FINDINGS: The sternal wires are midline. The lungs are clear. No chest wall fracture deformity, lung contusion, pneumothorax, hemothorax, or pneumonia. No failure pattern. IMPRESSION: Negative. Dictated by: Dictated on workstation # [id number]
[2022-06-04 08:00] VITALS: BP 99/60
[2022-06-04] MEDS ORDERED: ASPIRIN E.C. 81 MG (ECOTRIN) TAB PO SCH (09:00)
--- NOTE | 2022-06-04 10:01 | Consultation-Cardiology ---
HPI-Cardiology Cardiology Consultation Date of Consultation 06/04/22 Date of Admission Time Seen by Provider: 09:55 Indication: Chest pain HPI 47-year-old lady with extensive history of coronary artery disease, hypertension and hyperlipidemia. Woke up last night with severe chest pain retrosternal in the center of her chest not radiating to the back or to the shoulder. Came into the emergency room after taking nitroglycerin without improvement. Still having some mild chest pain at this time, reporting chest pain on deep inspiration. No palpitation. No syncope Home Medications & Allergies Allergies: Coded Allergies: Penicillins (Verified Allergy, Unknown, 05/16/21) Sulfa (Sulfonamide Antibiotics) (Verified Allergy, Unknown, 05/16/21) naproxen (Verified Allergy, Unknown, HIVES, NAUSEA--can take ibuprofen, 05/16/21) Home Medication List Reviewed: Yes KET-Mikvap-Ssobgl Hx Patient Social History Marital Status: Smoking Status: Current Everyday Smoker Type Used: Electronic/Vapor 2nd Hand Smoke Exposure: No Recent Hopitalizations: No Have you traveled recently?: No Alcohol Use?: No Substance type: Marijuana Immunizations Up To Date Tetanus Booster (TDap): More than 5yrs Date of Pneumonia Vaccine: Jun 20, 2013 Date of Influenza Vaccine: May 09, 2021 Past Medical History Discussed below Family Medical History Significant Family History: Heart Disease Review of Systems-General Review of Systems Constitutional: no symptoms reported, see HPI, malaise EENTM: see HPI, no symptoms reported Respiratory: see HPI; No cough; dyspnea on exertion; No hemoptysis, No orthopnea, No phlegm, No short of breath, No stridor, No wheezing, No other Cardiovascular: see HPI, chest pain; No edema, No Hx of Intervention, No palpitations, No syncope, No vascular heart diseas, No other Gastrointestinal: no symptoms reported, see HPI Genitourinary: no symptoms reported, see HPI Musculoskeletal: no symptoms reported, see HPI Skin: no symptoms reported, see HPI Psychiatric/Neurological: No Symptoms Reported, See HPI Reviewed Test Results Reviewed Test Results Lab Laboratory Tests Test 06/04/22 02:10 06/04/22 02:25 06/04/22 02:35 06/04/22 03:36 Range/Units White Blood Count 10.6 4.3-11.0 10^3/uL Red Blood Count 4.01 3.80-5.11 10^6/uL Hemoglobin 12.7 11.5-16.0 g/dL Hematocrit 37 35-52 % Mean Corpuscular Volume 91 80-99 fL Mean Corpuscular Hemoglobin 32 25-34 pg Mean Corpuscular Hemoglobin Concent 35 32-36 g/dL Red Cell Distribution Width 12.1 10.0-14.5 % Platelet Count 306 130-400 10^3/uL Mean Platelet Volume 10.7 9.0-12.2 fL Immature Granulocyte % (Auto) 1 % Neutrophils (%) (Auto) 66 42-75 % Lymphocytes (%) (Auto) 27 12-44 % Monocytes (%) (Auto) 6 0-12 % Eosinophils (%) (Auto) 1 0-10 % Basophils (%) (Auto) 0 0-10 % Neutrophils # (Auto) 7.0 1.8-7.8 10^3/uL Lymphocytes # (Auto) 2.8 1.0-4.0 10^3/uL Monocytes # (Auto) 0.6 0.0-1.0 10^3/uL Eosinophils # (Auto) 0.1 0.0-0.3 10^3/uL Basophils # (Auto) 0.0 0.0-0.1 10^3/uL Immature Granulocyte # (Auto) 0.1 0.0-0.1 10^3/uL Prothrombin Time 12.3 12.2-14.7 SEC INR Comment 0.9 0.8-1.4 Activated Partial Thromboplast Time 29 24-35 SEC D-Dimer 0.80 H 0.00-0.49 UG/ML Sodium Level 131 L 135-145 MMOL/L Potassium Level 3.8 3.6-5.0 MMOL/L Chloride Level 99 98-107 MMOL/L Carbon Dioxide Level 18 L 21-32 MMOL/L Anion Gap 14 5-14 MMOL/L Blood Urea Nitrogen 23 H 7-18 MG/DL Creatinine 1.37 H 0.60-1.30 MG/DL Estimat Glomerular Filtration Rate 47 BUN/Creatinine Ratio 17 Glucose Level 354 H 70-105 MG/DL Calcium Level 8.9 8.5-10.1 MG/DL Corrected Calcium 9.2 8.5-10.1 MG/DL Magnesium Level 1.6 1.6-2.4 MG/DL Total Bilirubin 0.5 0.1-1.0 MG/DL Aspartate Amino Transf (AST/SGOT) 10 5-34 U/L Alanine Aminotransferase (ALT/SGPT) 15 0-55 U/L Alkaline Phosphatase 127 40-136 U/L Total Creatine Kinase 78 29-168 U/L Creatine Kinase MB 2.2 <6.6 NG/ML Myoglobin 90.9 10.0-92.0 NG/ML Troponin I < 0.028 <0.028 NG/ML B-Type Natriuretic Peptide 39.8 <100.0 PG/ML Total Protein 6.6 6.4-8.2 GM/DL Albumin 3.6 3.2-4.5 GM/DL Amylase Level 33 25-125 U/L Lipase 36 8-78 U/L Serum Test, Qualitative POSITIVE NEGATIVE Influenza Type A (RT-PCR) Not Detected Not Detecte Influenza Type B (RT-PCR) Not Detected Not Detecte SARS-CoV-2 RNA (RT-PCR) Not Detected Not Detecte Urine Opiates Screen NEGATIVE NEGATIVE Urine Oxycodone Screen NEGATIVE NEGATIVE Urine Methadone Screen NEGATIVE NEGATIVE Urine Propoxyphene Screen NEGATIVE NEGATIVE Urine Barbiturates Screen NEGATIVE NEGATIVE Ur Tricyclic Antidepressants Screen NEGATIVE NEGATIVE Urine Phencyclidine Screen NEGATIVE NEGATIVE Urine Amphetamines Screen NEGATIVE NEGATIVE Urine Methamphetamines Screen NEGATIVE NEGATIVE Urine Benzodiazepines Screen NEGATIVE NEGATIVE Urine Cocaine Screen NEGATIVE NEGATIVE Urine Cannabinoids Screen POSITIVE H NEGATIVE Human Chorionic Gonadotropin, Quant 6 H <5 MIU/ML Test 06/04/22 05:58 06/04/22 09:07 Range/Units White Blood Count 8.6 4.3-11.0 10^3/uL Red Blood Count 3.87 3.80-5.11 10^6/uL Hemoglobin 12.5 11.5-16.0 g/dL Hematocrit 36 35-52 % Mean Corpuscular Volume 93 80-99 fL Mean Corpuscular Hemoglobin 32 25-34 pg Mean Corpuscular Hemoglobin Concent 35 32-36 g/dL Red Cell Distribution Width 12.3 10.0-14.5 % Platelet Count 277 130-400 10^3/uL Mean Platelet Volume 10.5 9.0-12.2 fL Immature Granulocyte % (Auto) 1 % Neutrophils (%) (Auto) 81 H 42-75 % Lymphocytes (%) (Auto) 15 12-44 % Monocytes (%) (Auto) 3 0-12 % Eosinophils (%) (Auto) 0 0-10 % Basophils (%) (Auto) 0 0-10 % Neutrophils # (Auto) 7.0 1.8-7.8 10^3/uL Lymphocytes # (Auto) 1.3 1.0-4.0 10^3/uL Monocytes # (Auto) 0.3 0.0-1.0 10^3/uL Eosinophils # (Auto) 0.0 0.0-0.3 10^3/uL Basophils # (Auto) 0.0 0.0-0.1 10^3/uL Immature Granulocyte # (Auto) 0.0 0.0-0.1 10^3/uL Sodium Level 137 135-145 MMOL/L Potassium Level 3.7 3.6-5.0 MMOL/L Chloride Level 106 98-107 MMOL/L Carbon Dioxide Level 18 L 21-32 MMOL/L Anion Gap 13 5-14 MMOL/L Blood Urea Nitrogen 23 H 7-18 MG/DL Creatinine 1.10 0.60-1.30 MG/DL Estimat Glomerular Filtration Rate 62 BUN/Creatinine Ratio 21 Glucose Level 235 H 70-105 MG/DL Calcium Level 8.9 8.5-10.1 MG/DL Troponin I < 0.028 < 0.028 <0.028 NG/ML Triglycerides Level 110 <150 MG/DL Cholesterol Level 167 < 200 MG/DL LDL Cholesterol Direct 129 1-129 MG/DL VLDL Cholesterol 22 5-40 MG/DL HDL Cholesterol 35 L 40-60 MG/DL Physical Exam Physical Exam Vital Signs Vital Signs - First Documented 06/04/22 02:09 Temp 36.3 Pulse 89 Resp 20 B/P (MAP) 112/70 (84) Pulse Ox 96 O2 Delivery Room Air Capillary Refill : Less Than 3 Seconds Height, Weight, BMI Height: 5'8.00" Weight: 189lbs. 0.0oz. 85.372445pj; 36.14 BMI Method:Stated General Appearance: No Apparent Distress, WD/WN Eyes: Bilateral Eye Normal Inspection, Bilateral Eye PERRL, Bilateral Eye EOMI HEENT: PERRL/EOMI, TMs Normal, Normal ENT Inspection, Pharynx Normal, Moist Mucous Membranes Neck: Full Range of Motion, Normal Inspection, Non Tender, Supple, Carotid Bruit Respiratory: Chest Non Tender, Normal Breath Sounds, No Accessory Muscle Use, No Respiratory Distress Cardiovascular: Regular Rate, Rhythm, No Edema, No Gallop, No JVD, No Murmur, Normal Peripheral Pulses Gastrointestinal: Normal Bowel Sounds, No Organomegaly, No Pulsatile Mass, Non Tender, Soft Back: Normal Inspection, No CVA Tenderness, No Vertebral Tenderness Extremity: Normal Capillary Refill, Normal Inspection, Normal Range of Motion, Non Tender, No Calf Tenderness, No Pedal Edema Neurologic/Psychiatric: Alert, Oriented x3, No Motor/Sensory Deficits, Normal Mood/Affect Skin: Normal Color, Warm/Dry Lymphatic: No Adenopathy A/P-Cardiology Admission Diagnosis Chest pain Coronary artery disease Hyperlipidemia Diabetes mellitus Assessment/Plan Chest pain nonspecific etiology, atypical in presentation EKG and cardiac enzymes did not show any acute abnormality Pain appears to be more of pleuritic in nature. I reassured the patient it is unlikely to be cardiac chest pain Coronary artery disease, has been followed and managed by Dr. Aguilar H/o CABG in 2009. Last [place] on 04/23/20 due to mid-vessel, instent occlusion of RCA, treated with ballon angioplasty and stenting with Xience Radha 2.25x33 stent that was post- dilated to 3 mm kevin (Dr Bartlett). LAD had mild instent restenosis in prox LAD, LCX had patent stent, LVEDP 32 mmHg, preserved LV function, patent SVG to a diag, atretic LOPEZ to LAD. MPI of 05-17-21: Inferior wall myocardial infarction with a small amount of ted- infarct ischemia. Inferior wall hypokinesis. Well preserved global left ventricular systolic function with ejection fraction of 54%. Echo of 04/23/20: LVEF 55-60%, mild dil LA,mild to mod MR, PASP 25-30 mmHg Card cath on 05/24/21: patent stents in the L cor system, occluded/atretic LOPEZ to LAD, patent SVG to an OM with 70% ostial stenosis that was successfully stented on 05/24/21 with Radha 2.5 x 18 mm stent (deployed at 20 [place]), midvessel instent occlusion of RCA and 90% proximal instent stenosis of RCA, prox RCA stenosis reduced to 50% with balloon angioplasty, distal RCA occlusion could not be opened up, LVEDP 17 mmHg Cardiac cath of 08-15-[address] Jay Normal central aortic pressure with elevated left ventricular end-diastolic pressure. Patent stent in the mid left anterior descending coronary artery. Total occlusion of the mid right coronary artery within previously placed stents. This is known to be a chronic total occlusion. The left internal mammary artery graft to left anterior descending coronary artery is known to be atretic and was not studied during this proced ure. Patent saphenous vein graft to the obtuse marginal branch with a patent stent in the ostium. Incidental finding mildly elevated beta-hCG. Managed by primary care physician History of hiatal hernia noted on CT in January 2021, history of erosive esopha gitis. Continue on PPI Tobaccoism, still an active smoker, educated on smoking cessation Hyperlipidemia, maintained on atorvastatin Diabetes mellitus, followed and managed by primary care physician BMI 36, educated on weight loss and exercise. Depression, anxiety. Followed and managed by primary care physician Clinical Quality Measures AMI/AHF: ASA po Prior to arrival: Yes Smoking Cessation Counseling: Counseling-Symptomatic: 3-10 Minutes ELIJAH ARGUELLES MD Jun 04, 2022 10:01
[2022-06-04] MEDS ORDERED: PANTOPRAZOLE 40 MG (PROTONIX) VIAL IV ONE (10:30)
[2022-06-04] MEDS ORDERED: PANT40TA52 PO (10:48)
--- NOTE | 2022-06-04 21:01 | Discharge Summary ---
Discharge Summary Hospital Course Problems/Dx: (1) Chronic chest pain Status: Acute (2) History of coronary artery disease Status: Acute (3) Hiatal hernia with GERD Status: Acute (4) Positive test Status: Acute Hospital Course Date of Admission: Jun 04, 2022 at 04:05 Admission Diagnosis : Chest pain Family Physician/Provider: Willem Chamorro DO Date of Discharge: 06/04/22 Discharge Diagnosis: Chest pain, history of CAD, hiatal hernia with GERD, positive test Hospital Course: Melanie Champagne is a 47 year old female with history of CAD s/p CABG who presented with chest pain. Cardiology was consulted and assisted with her care. Her cardiac workup was unremarkable. She has a history of hiatal hernia and GERD. She was referred for follow up with Dr. Blackman for outpatient endoscopy. She also had a positive test with beta-HCG of 6, slightly positive. She was given an order for a repeat beta-HCG test in a few days. She should follow up with Dr. Chamorro in about a week. She will call tomorrow for an appointment. She was discharged home in stable condition. Labs and Pending Lab Test: Laboratory Tests 06/04/22 02:10: White Blood Count 10.6, Red Blood Count 4.01, Hemoglobin 12.7, Hematocrit 37, Mean Corpuscular Volume 91, Mean Corpuscular Hemoglobin 32, Mean Corpuscular Hemoglobin Concent 35, Red Cell Distribution Width 12.1, Platelet Count 306, Mean Platelet Volume 10.7, Immature Granulocyte % (Auto) 1, Neutrophils (%) (Auto) 66, Lymphocytes (%) (Auto) 27, Monocytes (%) (Auto) 6, Eosinophils (%) (Auto) 1, Basophils (%) (Auto) 0, Neutrophils # (Auto) 7.0, Lymphocytes # (Auto) 2.8, Monocytes # (Auto) 0.6, Eosinophils # (Auto) 0.1, Basophils # (Auto) 0.0, Immature Granulocyte # (Auto) 0.1, Prothrombin Time 12.3, INR Comment 0.9, Activated Partial Thromboplast Time 29, D-Dimer 0.80H, Sodium Level 131L, Potassium Level 3.8, Chloride Level 99, Carbon Dioxide Level 18L, Anion Gap 14, Blood Urea Nitrogen 23H, Creatinine 1.37H, Estimat Glomerular Filtration Rate 47, BUN/Creatinine Ratio 17, Glucose Level 354H, Calcium Level 8.9, Corrected Calcium 9.2, Magnesium Level 1.6, Total Bilirubin 0.5, Aspartate Amino Transf (AST/SGOT) 10, Alanine Aminotransferase (ALT/SGPT) 15, Alkaline Phosphatase 127, Total Creatine Kinase 78, Creatine Kinase MB 2.2, Myoglobin 90.9, Troponin I < 0.028, B-Type Natriuretic Peptide 39.8, Total Protein 6.6, Albumin 3.6, Amylase Level 33, Lipase 36, Serum Test, Qualitative POSITIVE 06/04/22 02:25: Influenza Type A (RT-PCR) Not Detected, Influenza Type B (RT-PCR) Not Detected, SARS-CoV-2 RNA (RT-PCR) Not Detected 06/04/22 02:35: Urine Opiates Screen NEGATIVE, Urine Oxycodone Screen NEGATIVE, Urine Methadone Screen NEGATIVE, Urine Propoxyphene Screen NEGATIVE, Urine Barbiturates Screen NEGATIVE, Ur Tricyclic Antidepressants Screen NEGATIVE, Urine Phencyclidine S creen NEGATIVE, Urine Amphetamines Screen NEGATIVE, Urine Methamphetamines Screen NEGATIVE, Urine Benzodiazepines Screen NEGATIVE, Urine Cocaine Screen NEGATIVE, Urine Cannabinoids Screen POSITIVEH 06/04/22 03:36: Human Chorionic Gonadotropin, Quant 6H 06/04/22 05:58: White Blood Count 8.6, Red Blood Count 3.87, Hemoglobin 12.5, Hematocrit 36, Mean Corpuscular Volume 93, Mean Corpuscular Hemoglobin 32, Mean Corpuscular Hemoglobin Concent 35, Red Cell Distribution Width 12.3, Platelet Count 277, Mean Platelet Volume 10.5, Immature Granulocyte % (Auto) 1, Neutrophils (%) (Auto) 81H, Lymphocytes (%) (Auto) 15, Monocytes (%) (Auto) 3, Eosinophils (%) (Auto) 0, Basophils (%) (Auto) 0, Neutrophils # (Auto) 7.0, Lymphocytes # (Auto) 1.3, Monocytes # (Auto) 0.3, Eosinophils # (Auto) 0.0, Basophils # (Auto) 0.0, Immature Granulocyte # (Auto) 0.0, Sodium Level 137, Potassium Level 3.7, Chloride Level 106, Carbon Dioxide Level 18L, Anion Gap 13, Blood Urea Nitrogen 23H, Creatinine 1.10, Estimat Glomerular Filtration Rate 62, BUN/Creatinine Ratio 21, Glucose Level 235H, Calcium Level 8.9, Troponin I < 0.028, Triglycerides Level 110, Cholesterol Level 167, LDL Cholesterol Direct 129, VLDL Cholesterol 22, HDL Cholesterol 35L 06/04/22 09:07: Troponin I < 0.028 06/04/22 11:04: Glucometer 358H Home Meds Active Pantoprazole Sodium 40 Mg Tablet.dr 40 Mg PO BID 30 Days Percocet 5-325 mg Tablet (Oxycodone HCl/Acetaminophen) 1 Each Tablet 1 Tab PO Q6H PRN MDD 6 TABS 3 Days Cyclobenzaprine HCl 10 Mg Tablet 10 Mg PO Q8H PRN Ezetimibe 10 Mg Tablet 10 Mg PO HS Atorvastatin Calcium 80 Mg Tablet 80 Mg PO HS Isosorbide Mononitrate ER (Isosorbide Mononitrate) 30 Mg Tab.er.24h 30 Mg PO DAILY Reported Advil (Ibuprofen) 200 Mg Tablet 200 Mg PO Q8H PRN Nitroglycerin 0.3 Mg Tab.subl 0.3 Mg SL UD PRN Varenicline (Varenicline Tartrate) 0.5 Mg (11)-1 Mg (42) Tab.ds.pk 1 Tab PO UD Lunesta (Eszopiclone) 2 Mg Tablet 2 Mg PO HS Metformin HCl 500 Mg Tablet 500 Mg PO DAILY 07-28-2021 FILLED #90/90 DAY SUPPLY Hydroxyzine HCl 25 Mg Tablet 25 Mg PO BID PRN Abilify (Aripiprazole) 15 Mg Tablet 7.5 Mg PO DAILY TAKES OF A 15MG TAB Sertraline HCl 100 Mg Tablet 100 Mg PO HS Metoprolol Tartrate 25 Mg Tablet 12.5 Mg PO BID TAKES OF A 25MG TAB Plavix (Clopidogrel Bisulfate) 75 Mg Tablet 75 Mg PO DAILY Aspirin EC (Aspirin) 81 Mg Tablet.dr 81 Mg PO DAILY Assessment/Pt Instructions See instructions Discharge Planning: <30 minutes discharge planning Discharge Instructions Discharge Diet: Low Sodium Diet Activity as Tolerated: Yes Consultations Cardiology Discharge Physical Examination Vital Signs Vital Signs Date Time Temp Pulse Resp B/P (MAP) Pulse Ox O2 Delivery O2 Flow Rate FiO2 06/04/22 15:05 06/04/22 12:00 94 Room Air 06/04/22 11:49 36.6 06/04/22 08:00 83 19 General Appearance: No Apparent Distress, Obese HEENT: PERRL/EOMI, Pharynx Normal Respiratory: Lungs Clear, No Respiratory Distress Cardiovascular: Regular Rate, Rhythm, No Murmur Gastrointestinal: Normal Bowel Sounds, Soft Extremity: Normal Inspection, No Pedal Edema Skin: Normal Color, Warm/Dry Neurologic/Psychiatric: Alert, Normal Mood/Affect Allergies: Coded Allergies: Penicillins (Verified Allergy, Unknown, 05/16/21) Sulfa (Sulfonamide Antibiotics) (Verified Allergy, Unknown, 05/16/21) naproxen (Verified Allergy, Unknown, HIVES, NAUSEA--can take ibuprofen, 05/16/21) Copy Copies To 1: WILLEM CHAMORRO DO Copies To 2: NANCY BLACKMAN DO Discharge Summary Date of Admission Jun 04, 2022 at 04:05 Date of Discharge Jun 04, 2022 at 14:50 Discharge Date: Jun 04, 2022 Discharge Time: 14:50 Admission Diagnosis Chest pain Consults/Procedures Consulations Cardiology Discharge Diagnosis (1) Chronic chest pain Status: Acute (2) History of coronary artery disease Status: Acute (3) Hiatal hernia with GERD Status: Acute (4) Positive test Status: Acute Clinical Quality Measures AMI/AHF: ASA po Prior to arrival: Yes Smoking Cessation Counseling: Counseling-Symptomatic: 3-10 Minutes RAINE HERNANDEZ MD Jun 04, 2022 21:00
== END 2022-06-04 14:50 | disposition home or self-care (01) ==
LOC: EDUNIT# 02:08 → ER 02:09 → ICU 04:05
PROVIDERS: ADMIT Internal Medicine; ATTEND Internal Medicine
DX: R07.89 Other chest pain (principal); O99.619 Diseases of the digestive system complicating pregnancy, unspecified trimester; K44.9 Diaphragmatic hernia without obstruction or gangrene; K21.9 Gastro-esophageal reflux disease without esophagitis; Z79.899 Other long term (current) drug therapy; F17.210 Nicotine dependence, cigarettes, uncomplicated; O24.919 Unspecified diabetes mellitus in pregnancy, unspecified trimester; O99.210 Obesity complicating pregnancy, unspecified trimester; E66.01 Morbid (severe) obesity due to excess calories; O99.519 Diseases of the respiratory system complicating pregnancy, unspecified trimester; J44.9 Chronic obstructive pulmonary disease, unspecified; O26.839 Pregnancy related renal disease, unspecified trimester; Z82.49 Family history of ischemic heart disease and other diseases of the circulatory system; N28.9 Disorder of kidney and ureter, unspecified
CPT/HCPCS: 36415; 71045; 80048; 80053; 80061; 80306; 82150; 82550; 82553; 82947; 83690; 83735; 83874; 83880; 84484; 84702; 84703; 85025; 85379; 85610; 85730; 87636; 93005; 93041; 94640; 96374; 96375; 96376

== ENCOUNTER 2022-06-27 15:30 | Emergency (ER) | payer MEDICARE, MEDICAID ==
[~2022-06-27] VITALS: Ht 172 cm; Wt 111.0 kg
[2022-06-27 15:48] LABS: BASOPHILS % (AUTO) 1 % (0-10); EOSINOPHILS # (AUTO) 0.3 10^3/uL (0.0-0.3); EOSINOPHILS % (AUTO) 5 % (0-10); HEMATOCRIT 42 % (35-52); HEMOGLOBIN 13.9 g/dL (11.5-16.0); LYMPHOCYTES # (AUTO) 2.2 X 10^3 (1.0-4.0); LYMPHOCYTES % (AUTO) 33 % (12-44); MEAN CORPUSCULAR HEMOGLOBIN 32 pg (25-34); MEAN CORPUSCULAR HGB CONC 34 g/dL (32-36); MEAN CORPUSCULAR VOLUME 95 fL (80-99); MEAN PLATELET VOLUME 10.6 fL (9.0-12.2); MONOCYTES # (AUTO) 0.4 X 10^3 (0.0-1.0); MONOCYTES % (AUTO) 6 % (0-12); NEUTROPHILS # (AUTO) 3.8 X 10^3 (1.8-7.8); NEUTROPHILS % (AUTO) 56 % (42-75); PLATELET COUNT 330 10^3/uL (130-400); WHITE BLOOD COUNT 6.8 10^3/uL (4.3-11.0)
[2022-06-27] MEDS ORDERED: fentaNYL INJ 100 MCG/2 ML AMP IVP ONE (16:00)
[2022-06-27] MEDS ORDERED: ONDANSETRON 4 MG/2 ML (SDV) Z0FRAN IVP ONE (16:00)
[2022-06-27] MEDS ORDERED: NS IV 1000 ML 1,000 ML IV SCH (16:00)
[2022-06-27 16:03] LABS: ALBUMIN 3.6 GM/DL (3.2-4.5); POTASSIUM 3.9 MMOL/L (3.6-5.0)
--- NOTE | 2022-06-27 16:03 | Diagnostic Imaging Report ---
INDICATION: Chest pain. Frontal chest obtained at 3:47 p.m. and compared to 06/04/2022. FINDINGS: Heart is normal in size. There is post-sternotomy change. There is no focal infiltrate or pneumothorax or pleural fluid. There appears to be a small hiatal hernia. IMPRESSION: Postop changes with normal heart size. Small hiatal hernia. No focal infiltrate or pleural fluid. Dictated by: Dictated on workstation # [id number]
[2022-06-27 16:06] LABS: TOTAL PROTEIN 6.5 GM/DL (6.4-8.2)
--- NOTE | 2022-06-27 16:07 | ED Chest Pain ---
General Chief Complaint: Chest Pain Stated Complaint: CHEST PAIN Nursing Triage Note: ARRIVED VIA AMBULANCE FROM HOME WITH COMPLAINTS OF CHEST PAIN X1 HOUR THAT RADIATES INTO LEFT NECK. PT TOOK X2 NITRO AT HOME THEN X1 WITH EMS ALONG WITH ASA 324MG. PT STATES IT HAS NOT HELPED. Source: patient Exam Limitations: no limitations (ROSIO KENNEDY APRN) History of Present Illness Date Seen by Provider: Jun 27, 2022 Time Seen by Provider: 15:41 Initial Comments This is a 47-year-old female who presented to the ER via [facility] with complaints of left chest pain that radiates into her left arm. States that she took 3 nitro prior to arrival which did nothing to alleviate her symptoms. Reports mild nausea without vomiting. Has history of angina with multiple ER visits. States her pain today is same as her "typical" chest pain. No fever, chills, cough, shortness of breath. (ROSIO KENNEDY APRN) Allergies and Home Medications Allergies Coded Allergies: Penicillins (Verified Allergy, Unknown, 05/16/21) Sulfa (Sulfonamide Antibiotics) (Verified Allergy, Unknown, 05/16/21) naproxen (Verified Allergy, Unknown, HIVES, NAUSEA--can take ibuprofen, 05/16/21) Patient Home Medication List Home Medication List Reviewed: Yes (ROSIO KENNEDY APRN) Aripiprazole (Abilify) 15 Mg Tablet, 7.5 MG PO DAILY, (Reported) Entered as Reported by: SONJA OH on 06/27/21 1036 Aspirin (Aspirin EC) 81 Mg Tablet.dr, 81 MG PO DAILY, (Reported) Entered as Reported by: SONJA OH on 05/24/21 0959 Atorvastatin Calcium (Atorvastatin Calcium) 80 Mg Tablet, 80 MG PO HS Prescribed by: MITCHELL LEBRON on 04/10/22 1423 Clopidogrel Bisulfate (Plavix) 75 Mg Tablet, 75 MG PO DAILY, (Reported) Entered as Reported by: SONJA OH on 05/26/21 1059 Cyclobenzaprine HCl (Cyclobenzaprine HCl) 10 Mg Tablet, 10 MG PO Q8H PRN for SPASMS Prescribed by: HEATH CAMARILLO on 04/22/22 2331 Eszopiclone (Lunesta) 2 Mg Tablet, 2 MG PO HS, (Reported) Entered as Reported by: DOLORES LARIOS on 08/15/21 1555 Ezetimibe (Ezetimibe) 10 Mg Tablet, 10 MG PO HS Prescribed by: MITCHELL LEBRON on 04/10/22 1423 Hydroxyzine HCl (Hydroxyzine HCl) 25 Mg Tablet, 25 MG PO BID PRN for ANXIETY, (Reported) Entered as Reported by: SONJA OH on 06/27/21 1036 Ibuprofen (Advil) 200 Mg Tablet, 200 MG PO Q8H PRN for PAIN-MILD (1-4), (Reported) Entered as Reported by: DOLORES LARIOS on 04/10/22 1409 Isosorbide Mononitrate (Isosorbide Mononitrate ER) 30 Mg Tab.er.24h, 30 MG PO DAILY Prescribed by: MITCHELL LEBRON on 04/10/22 1423 Metformin HCl (Metformin HCl) 500 Mg Tablet, 500 MG PO DAILY, (Reported) Entered as Reported by: DOLORES LARIOS on 08/15/21 1552 Metoprolol Tartrate (Metoprolol Tartrate) 25 Mg Tablet, 12.5 MG PO BID, (Reported) Entered as Reported by: SONJA OH on 05/26/21 1059 Nitroglycerin (Nitroglycerin) 0.3 Mg Tab.subl, 0.3 MG SL UD PRN for CHEST PAIN (ANGINA), (Reported) Entered as Reported by: DOLORES LARIOS on 04/10/22 1407 Oxycodone HCl/Acetaminophen (Percocet 5-325 mg Tablet) 1 Each Tablet, 1 TAB PO Q6H PRN for PAIN-BREAKTHROUGH Prescribed by: MARGARET HDEZ on 04/30/22 1924 Pantoprazole Sodium (Pantoprazole Sodium) 40 Mg Tablet.dr, 40 MG PO BID Prescribed by: RAINE HERNANDEZ on 06/04/22 1048 Sertraline HCl (Sertraline HCl) 100 Mg Tablet, 100 MG PO HS, (Reported) Entered as Reported by: SONJA OH on 06/27/21 1036 Varenicline Tartrate (Varenicline) 0.5 Mg (11)-1 Mg (42) Tab.ds.pk, 1 TAB PO UD, (Reported) Entered as Reported by: DOLORES LARIOS on 04/10/22 1406 Review of Systems Review of Systems Constitutional: see HPI (ROSIO KENNEDY ENGINEER OF SYSTEM DEVELOPMENT) Past [id number]-[id number] Hx Patient Social History Tobacco Use?: Yes Tobacco type used: Cigarettes Smoking Status: Current Everyday Smoker Substance use?: No Alcohol Use?: No (ROSIO KENNEDY APRN) Immunizations Up To Date Tetanus Booster (TDap): More than 5yrs First/Initial COVID19 Vaccinat: not vaccinated Second COVID19 Vaccination Mark: not vaccinated Third COVID19 Vaccination Date: not vaccinated (ROSIO KENNEDY ENGINEER OF SYSTEM DEVELOPMENT) Seasonal Allergies Seasonal Allergies: No (ROSIO KENNEDY APRN) Past Medical History Surgery/Hospitalization HX: CABG, VEIN HARVEST, T/A, CORNARY STENT, CHOLECYSTECTOMY, TRACH/REVERSAL, ASTHMA, CAD, HTN, NH, BOWSER, SEIZURE, HERPES, CERVICAL CA, FABRICE FUNDIPLICATION, ANXIETY/DEPRESSION, SUICIDE ATTEMPTS. 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 History: Hysterectomy, Menopausal Sexually Transmitted Disease: Yes (HERPES) Genitourinary: No Gastrointestinal: Yes (S/P FABRICE FUNDOPLICATION) Gastroesophageal Reflux, Esophagitis, Hiatal Hernia, Gall Bladder Disease Musculoskeletal: Yes Arthritis Endocrine: Yes (MORBID OBESITY) Hypothyroidsim, Diabetes, Non-Insulin dep HEENT: Yes Chronic Ear Infection Hearing Impairment: Hard of Hearing Cancer: Yes Cervical Did You Recieve Any Treatments: Yes What Type of Treatment Did You: Surgical Intervention Psychosocial: Yes Sleep Difficulties, Anxiety, Suicide Attempts, Depression Integumentary: No Blood Disorders: No Adverse Reaction/Blood Tranf: No (ROSIO KENNEDY APRN) Family Medical History Heart Disease SEE OLD CHARTS FOR DETAILS (ROSIO KENNEDY APRN) Physical Exam Vital Signs Vital Signs - First Documented 06/27/22 15:30 Temp 36.3 Pulse 94 Resp 16 B/P (MAP) 98/76 (83) Pulse Ox 98 O2 Delivery Room Air (DORA ROMERO MD) Vital Signs Capillary Refill : Less Than 3 Seconds (ROSIO KENNEDY APRN) Height, Weight, BMI Height: 5'8.00" Weight: 189lbs. 0.0oz. 85.130992qp; 37.00 BMI Method:Stated General Appearance: No Apparent Distress, WD/WN HEENT: PERRL/EOMI, Normal ENT Inspection, Pharynx Normal, Moist Mucous Membranes Neck: Full Range of Motion, Normal Inspection, Supple Respiratory: Lungs Clear, Normal Breath Sounds, No Accessory Muscle Use, No Respiratory Distress Cardiovascular: Regular Rate, Rhythm, Normal Peripheral Pulses Gastrointestinal: Normal Bowel Sounds, Non Tender, Soft Extremity: Normal Capillary Refill, Normal Inspection, Normal Range of Motion, Non Tender Neurologic/Psychiatric: Alert, Oriented x3, No Motor/Sensory Deficits, Normal Mood/Affect Skin: Normal Color, Warm/Dry (ROSIO KENNEDY APRN) Progress/Results/Core Measures Results/Orders Lab Results Laboratory Tests Test 06/27/22 15:30 06/27/22 18:09 Range/Units White Blood Count 6.8 4.3-11.0 10^3/uL Red Blood Count 4.36 3.80-5.11 10^6/uL Hemoglobin 13.9 11.5-16.0 g/dL Hematocrit 42 35-52 % Mean Corpuscular Volume 95 80-99 fL Mean Corpuscular Hemoglobin 32 25-34 pg Mean Corpuscular Hemoglobin Concent 34 32-36 g/dL Red Cell Distribution Width 12.5 10.0-14.5 % Platelet Count 330 130-400 10^3/uL Mean Platelet Volume 10.6 9.0-12.2 fL Immature Granulocyte % (Auto) 0 % Neutrophils (%) (Auto) 56 42-75 % Lymphocytes (%) (Auto) 33 12-44 % Monocytes (%) (Auto) 6 0-12 % Eosinophils (%) (Auto) 5 0-10 % Basophils (%) (Auto) 1 0-10 % Neutrophils # (Auto) 3.8 1.8-7.8 X 10^3 Lymphocytes # (Auto) 2.2 1.0-4.0 X 10^3 Monocytes # (Auto) 0.4 0.0-1.0 X 10^3 Eosinophils # (Auto) 0.3 0.0-0.3 10^3/uL Basophils # (Auto) 0.0 0.0-0.1 10^3/uL Immature Granulocyte # (Auto) 0.0 0.0-0.1 10^3/uL Prothrombin Time 13.0 12.2-14.7 SEC INR Comment 1.0 0.8-1.4 Activated Partial Thromboplast Time 30 24-35 SEC Sodium Level 135 135-145 MMOL/L Potassium Level 3.9 3.6-5.0 MMOL/L Chloride Level 101 98-107 MMOL/L Carbon Dioxide Level 25 21-32 MMOL/L Anion Gap 9 5-14 MMOL/L Blood Urea Nitrogen 10 7-18 MG/DL Creatinine 1.06 0.60-1.30 MG/DL Estimat Glomerular Filtration Rate 64 BUN/Creatinine Ratio 9 Glucose Level 227 H 70-105 MG/DL Calcium Level 9.0 8.5-10.1 MG/DL Corrected Calcium 9.3 8.5-10.1 MG/DL Magnesium Level 1.8 1.6-2.4 MG/DL Total Bilirubin 0.8 0.1-1.0 MG/DL Aspartate Amino Transf (AST/SGOT) 13 5-34 U/L Alanine Aminotransferase (ALT/SGPT) 20 0-55 U/L Alkaline Phosphatase 124 40-136 U/L Total Creatine Kinase 55 29-168 U/L Creatine Kinase MB 1.1 <6.6 NG/ML Myoglobin 46.6 10.0-92.0 NG/ML Troponin I < 0.028 < 0.028 <0.028 NG/ML B-Type Natriuretic Peptide 23.1 <100.0 PG/ML Total Protein 6.5 6.4-8.2 GM/DL Albumin 3.6 3.2-4.5 GM/DL Lipase 17 8-78 U/L (DORA ROMERO MD) Vital Signs/I&O 06/27/22 06/27/22 15:30 19:09 Temp 36.3 Pulse 94 83 Resp 16 15 B/P (MAP) 98/76 (83) 105/64 Pulse Ox 98 98 O2 Delivery Room Air Room Air (DORA ROMERO MD) Blood Pressure Mean: 83 Progress Progress Note : Progress Note Patient examined and in no acute distress. She is sitting up in bed playing on her cell phone. EMS states that patient was standing outside smoking a cigarette and waiting for EMS to arrive, she ambulated independently with no difficulty to EMS cot.States that her pain is 9 out of 10, has taken 2 nitro tablets prior to arrival. States that nitro is not helping her chest pain. States that typically morphine or fentanyl help with her pain. She does have significant cardiac history, initiated cardiac work-up, no acute or ischemic changes appreciated on her EKG. Was given ASA 324 mg per EMS prior to arrival. States that she has taken all of her home medications today. Orders placed for fentanyl 50 mcg IV push. Labs and chest x-ray reviewed, unremarkable, cardiac markers negative, chest x- ray negative for acute pathology. Offered to have her try GI cocktail or Toradol as she states that Fetanyl helped briefly. Refused GI cocktail, willing to trial Toradol. Orders placed. Continue to rest comfortably, whenever staff to check on her she would collect her chest and say "it still hurts", repeat troponin negative. States she felt a little better after Toradol but she is still having pain, willing to try GI cocktail at this time. While waiting for GI cocktail states "never mind" "I am ready to leave". Discharge plan of care reviewed and she is agreeable with plan. (ROSIO KENNEDY ENGINEER OF SYSTEM DEVELOPMENT) Initial ECG Impression Date: Jun 27, 2022 Initial ECG Impression Time: 15:32 Initial ECG Rate: 93 Initial ECG Rhythm: Normal Sinus Initial ECG Impression: Nonspecific Changes Initial ECG Comparisson: Unchanged (ROSIO KENNEDY APRN) Diagnostic Imaging Diagonstic Imaging: Xray Plain Films/CT/US/NM/MRI: chest Comments [facility]. [place], [place] NAME: WAN DA SILVA [facility] REC#: [id number] PT STATUS: REG ER : 1975 PHYSICIAN: ROSIO KENNEDY APRN ADMIT DATE: 06/27/22/ER Draft Date of Exam:06/27/22 CHEST 1 VIEW, AP/PA ONLY INDICATION: Chest pain. Frontal chest obtained at 3:47 p.m. and compared to 06/04/2022. FINDINGS: Heart is normal in size. There is post-sternotomy change. There is no focal infiltrate or pneumothorax or pleural fluid. There appears to be a small hiatal hernia. IMPRESSION: Postop changes with normal heart size. Small hiatal hernia. No focal infiltrate or pleural fluid. Dictated on workstation # [id number] Dict: 06/27/22 1601 Trans: 06/27/22 1602 [id number] Interpreted by: JYOTI ESCALERA MD Electronically signed by: (ROSIO KENNEDY APRN) Departure Impression Primary Impression: Chest pain Disposition: 01 HOME, SELF-CARE Condition: Improved Departure-Patient Inst. Decision time for Depature: 19:02 (ROSIO KENNEDY APRN) Referrals: EDWAR LOBO DO (PCP/Family) Primary Care Physician Patient Instructions: Chest Pain (DC) Add. Discharge Instructions: Plan: 1. Discharge home. 2. Return for any new, concerning, or worsening symptoms. All discharge instructions reviewed with patient and/or family. Voiced understanding. ATTENDING PHYSICIAN NOTE: I was physically present as attending physician in the emergency department during the care of this patient, but I was not directly involved in the decision making or delivery of care for this patient. (DORA ROMERO MD) ROSIO KENNEDY APRN Jun 27, 2022 16:07 DORA ROMERO MD Jun 29, 2022 07:14
[2022-06-27 16:08] LABS: BILIRUBIN,TOTAL 0.8 MG/DL (0.1-1.0)
[2022-06-27 16:09] LABS: CREATININE SERUM 1.06 MG/DL (0.60-1.30)
[2022-06-27 16:12] LABS: MAGNESIUM 1.8 MG/DL (1.6-2.4)
[2022-06-27 16:20] LABS: CREATINE KINASE MB 1.1 NG/ML (<6.6)
[2022-06-27] MEDS ORDERED: LIDOCAINE 2% VISCOUS 15 ML UDC PO ONE ×2 (16:45→19:00)
[2022-06-27] MEDS ORDERED: KETOROLAC 30 MG/ML VIAL IVP ONE (16:45)
[2022-06-27] MEDS ORDERED: ANTACID SUSP 30 ML UDC (MYLANTA) PO ONE ×2 (16:45→19:00)
[2022-06-27] MEDS ORDERED: ONDANSETRON 4 MG/2 ML (SDV) Z0FRAN ONE (17:08)
[2022-06-27 19:09] VITALS: BP 105/64
== END 2022-06-27 19:09 | disposition home or self-care (01) ==
LOC: EDUNIT# 15:30 → ER 15:31
DX: R07.9 Chest pain, unspecified (principal); E66.01 Morbid (severe) obesity due to excess calories; I25.2 Old myocardial infarction; F17.210 Nicotine dependence, cigarettes, uncomplicated; Z68.37 Body mass index [BMI] 37.0-37.9, adult; Z95.1 Presence of aortocoronary bypass graft; Z95.5 Presence of coronary angioplasty implant and graft; Z88.6 Allergy status to analgesic agent; Z28.310 Unvaccinated for COVID-19
CPT/HCPCS: 36415; 71045; 80053; 82550; 82553; 83690; 83735; 83874; 83880; 84484; 85025; 85610; 85730; 93005; 93041

== ENCOUNTER 2022-07-02 16:45 | Emergency (ER) | payer MEDICARE, MEDICAID ==
[~2022-07-02] VITALS: Ht 172 cm; Wt 111.0 kg
--- NOTE | 2022-07-02 16:56 | ED Cough/URI ---
General Chief Complaint: COVID19 Suspect/Confirmed Stated Complaint: COVID SYMPTOMS Nursing Triage Note: PT TO [facility] BY [facility] WITH CC OF COVID, NAUSEA Source: patient Exam Limitations: no limitations History of Present Illness Date Seen by Provider: Jul 02, 2022 Time Seen by Provider: 16:40 Initial Comments 47-year-old female presents emergency department today via EMS for COVID symptoms. She was diagnosed couple of days ago. She has had dry heaving. States she is unable to vomit because she has had a Geri fundoplication. She also has body aches, fevers cough and shortness of breath. Vital signs were reportedly normal in route. Allergies and Home Medications Allergies Coded Allergies: Penicillins (Verified Allergy, Unknown, 05/16/21) Sulfa (Sulfonamide Antibiotics) (Verified Allergy, Unknown, 05/16/21) naproxen (Verified Allergy, Unknown, HIVES, NAUSEA--can take ibuprofen, 05/16/21) Patient Home Medication List Home Medication List Reviewed: Yes Albuterol Sulfate (Ventolin Hfa) 1 Puff Puff, 2 PUFF INH Q4H Prescribed by: MAYRA ARELLANO MD on 07/02/22 1707 Aripiprazole (Abilify) 15 Mg Tablet, 7.5 MG PO DAILY, (Reported) Entered as Reported by: SONJA OH on 06/27/21 1036 Aspirin (Aspirin EC) 81 Mg Tablet.dr, 81 MG PO DAILY, (Reported) Entered as Reported by: SONJA OH on 05/24/21 0959 Atorvastatin Calcium (Atorvastatin Calcium) 80 Mg Tablet, 80 MG PO HS Prescribed by: MITCHELL LEBRON on 04/10/22 1423 Clopidogrel Bisulfate (Plavix) 75 Mg Tablet, 75 MG PO DAILY, (Reported) Entered as Reported by: SONJA OH on 05/26/21 1059 Cyclobenzaprine HCl (Cyclobenzaprine HCl) 10 Mg Tablet, 10 MG PO Q8H PRN for SPASMS Prescribed by: HEATH CAMARILLO on 04/22/22 2331 Eszopiclone (Lunesta) 2 Mg Tablet, 2 MG PO HS, (Reported) Entered as Reported by: DOLORES LARIOS on 08/15/21 1555 Ezetimibe (Ezetimibe) 10 Mg Tablet, 10 MG PO HS Prescribed by: MITCHELL LEBRON on 04/10/22 1423 Hydroxyzine HCl (Hydroxyzine HCl) 25 Mg Tablet, 25 MG PO BID PRN for ANXIETY, (Reported) Entered as Reported by: SONJA OH on 06/27/21 1036 Ibuprofen (Advil) 200 Mg Tablet, 200 MG PO Q8H PRN for PAIN-MILD (1-4), (Reported) Entered as Reported by: DOLORES LARIOS on 04/10/22 1409 Isosorbide Mononitrate (Isosorbide Mononitrate ER) 30 Mg Tab.er.24h, 30 MG PO DAILY Prescribed by: MITCHELL LEBRON on 04/10/22 1423 Metformin HCl (Metformin HCl) 500 Mg Tablet, 500 MG PO DAILY, (Reported) Entered as Reported by: DOLORES LARIOS on 08/15/21 1552 Metoprolol Tartrate (Metoprolol Tartrate) 25 Mg Tablet, 12.5 MG PO BID, (Reported) Entered as Reported by: SONJA OH on 05/26/21 1059 Nitroglycerin (Nitroglycerin) 0.3 Mg Tab.subl, 0.3 MG SL UD PRN for CHEST PAIN (ANGINA), (Reported) Entered as Reported by: DOLORES LARIOS on 04/10/22 1407 Ondansetron (Ondansetron Odt) 8 Mg Tab.rapdis, 8 MG SL Q4H PRN for NAUSEA/VOMITING Prescribed by: MAYRA ARELLANO MD on 07/02/22 170 Oxycodone HCl/Acetaminophen (Percocet 5-325 mg Tablet) 1 Each Tablet, 1 TAB PO Q6H PRN for PAIN-BREAKTHROUGH Prescribed by: MARGARET HDEZ on 04/30/22 1924 Pantoprazole Sodium (Pantoprazole Sodium) 40 Mg Tablet.dr, 40 MG PO BID Prescribed by: RAINE HERNANDEZ on 06/04/22 1048 Prednisone (Prednisone) 50 Mg Tab, 50 MG PO DAILY Prescribed by: MAYRA ARELLANO MD on 07/02/22 170 Sertraline HCl (Sertraline HCl) 100 Mg Tablet, 100 MG PO HS, (Reported) Entered as Reported by: SONJA OH on 06/27/21 1036 Varenicline Tartrate (Varenicline) 0.5 Mg (11)-1 Mg (42) Tab.ds.pk, 1 TAB PO UD, (Reported) Entered as Reported by: DOLORES LARIOS on 04/10/22 4246 Review of Systems Review of Systems Constitutional: chills EENTM: no symptoms reported Respiratory: cough Cardiovascular: no symptoms reported Gastrointestinal: no symptoms reported Genitourinary: no symptoms reported Musculoskeletal: no symptoms reported Skin: no symptoms reported Psychiatric/Neurological: No Symptoms Reported Hematologic/Lymphatic: No Symptoms Reported Immunological/Allergic: no symptoms reported Past Phzygxg-Jpfwqm-Phkmbu Hx Patient Social History Tobacco Use?: No Use of E-Cig and/or Vaping dev: No Substance use?: No Alcohol Use?: No Immunizations Up To Date Tetanus Booster (TDap): More than 5yrs First/Initial COVID19 Vaccinat: not vaccinated Second COVID19 Vaccination Mark: not vaccinated Third COVID19 Vaccination Date: not vaccinated Seasonal Allergies Seasonal Allergies: No Past Medical History Surgery/Hospitalization HX: CABG, VEIN HARVEST, T/A, CORNARY STENT, CHOLECYSTECTOMY, TRACH/REVERSAL, ASTHMA, CAD, HTN, NE, BOWSER, SEIZURE, HERPES, CERVICAL CA, GERI FUNDIPLICATION, ANXIETY/DEPRESSION, SUICIDE ATTEMPTS. 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 Sexually Transmitted Disease: Yes (HERPES) Genitourinary: No Gastrointestinal: Yes (S/P GERI FUNDOPLICATION) Gastroesophageal Reflux, Esophagitis, Hiatal Hernia, Gall Bladder Disease Musculoskeletal: Yes Arthritis Endocrine: Yes (MORBID OBESITY) Hypothyroidsim, Diabetes, Non-Insulin dep HEENT: Yes Chronic Ear Infection Hearing Impairment: Hard of Hearing Cancer: Yes Cervical Did You Recieve Any Treatments: Yes What Type of Treatment Did You: Surgical Intervention Psychosocial: Yes Sleep Difficulties, Anxiety, Suicide Attempts, Depression Integumentary: No Blood Disorders: No Adverse Reaction/Blood Tranf: No Family Medical History Reviewed Nursing Family Hx Heart Disease SEE OLD CHARTS FOR DETAILS Physical Exam Vital Signs - First Documented 07/02/22 16:49 Temp 37.8 Pulse 128 Resp 21 B/P (MAP) 142/52 (82) Pulse Ox 97 O2 Delivery Room Air Capillary Refill : Less Than 3 Seconds Height: 5'8.00" Weight: 189lbs. 0.0oz. 85.196401yi; 37.00 BMI Method:Stated General Appearance: WD/WN, no apparent distress HEENT: normal ENT inspection, pharynx normal Neck: non-tender, full range of motion, supple, normal inspection Respiratory: chest non-tender, lungs clear, normal breath sounds, no respiratory distress, no accessory muscle use Cardiovascular: regular rate, rhythm, no edema, no gallop, no JVD, no murmur Gastrointestinal: normal bowel sounds, non tender, soft, no organomegaly Extremities: normal range of motion, non-tender, normal inspection, no pedal edema, no calf tenderness Neurologic/Psychiatric: alert, normal mood/affect, oriented x 3 Skin: normal color, warm/dry Lymphatic: no adenopathy Progress/Results/Core Measures Suspected Sepsis SIRS Temperature: Pulse: 128 Respiratory Rate: 21 Blood Pressure 142 /52 Mean: 82 Results/Orders My Orders Orders - MAYRA ARELLANO DO Ns Iv 1000 Ml (Sodium Chloride 0.9%) (07/02/22 17:00) Ondansetron Injection (Zofran Injectio (07/02/22 17:00) Vital Signs/I&O 07/02/22 07/02/22 07/02/22 16:49 16:50 17:51 Temp 37.8 Pulse 128 109 Resp 21 B/P (MAP) 142/52 (82) 118/81 Pulse Ox 97 97 O2 Delivery Room Air Room Air Room Air Capillary Refill : Less Than 3 Seconds Blood Pressure Mean: 82 Departure Communication (Admissions) Patient is hemodynamically stable with normal vital signs. Medically cleared and discharged in stable condition. Impression Primary Impression: Dry heaves Additional Impression: COVID-19 Disposition: 01 HOME, SELF-CARE Condition: Stable Departure-Patient Inst. Referrals: EDWAR LOBO DO (PCP/Family) Primary Care Physician Patient Instructions: COVID-19 ED Add. Discharge Instructions: Use the nausea medicine as prescribed as needed. Increase your fluids at home, rest. Use Tylenol as needed for body aches, fevers. I have provided you an albuterol inhaler at the pharmacy which you will need to pick[employer]. Also given a steroid medicine which you to take until its gone. Follow-up with your primary doctor for any nonemergent needs. Return to the emergency department for any severe concerns. All discharge instructions reviewed with patient and/or family. Voiced understanding. Scripts Prednisone (Prednisone) 50 Mg Tab 50 MG PO DAILY for 5 Days, #5 TAB Prov: MAYRA ARELALNO DO 07/02/22 Albuterol Sulfate (VENTOLIN HFA) 1 Puff Puff 2 PUFF INH Q4H for Wheezing for 30 Days, #1 EA 1 PUFF = 90 MCG Prov: MAYRA ARELLANO DO 07/02/22 Ondansetron (Ondansetron Odt) 8 Mg Tab.rapdis 8 MG SL Q4H PRN for NAUSEA/VOMITING for 3 Days, #18 TAB Prov: MAYRA ARELLANO DO 07/02/22 MAYRA ARELLANO DO Jul 02, 2022 16:56
[2022-07-02] MEDS ORDERED: NS IV 1000 ML 1,000 ML IV SCH (17:00)
[2022-07-02] MEDS ORDERED: ONDANSETRON 4 MG/2 ML (SDV) Z0FRAN IVP ONE (17:00)
[2022-07-02] MEDS ORDERED: ONDA8TAB13 SL (17:05)
[2022-07-02] MEDS ORDERED: RT-ALBUINH INH (17:07)
[2022-07-02] MEDS ORDERED: PRD50T PO (17:07)
[2022-07-02 17:51] VITALS: BP 118/81
== END 2022-07-02 17:51 | disposition home or self-care (01) ==
LOC: EDUNIT# 16:45 → ER 16:46
DX: U07.1 COVID-19 (principal); R19.8 Other specified symptoms and signs involving the digestive system and abdomen; E66.01 Morbid (severe) obesity due to excess calories; Z68.37 Body mass index [BMI] 37.0-37.9, adult; Z28.310 Unvaccinated for COVID-19
CPT/HCPCS: 99283

== ENCOUNTER 2023-05-27 16:33 | Emergency (ER) | payer MEDICAID, MEDICARE ==
[~2023-05-27] VITALS: Ht 172 cm; Wt 97.0 kg
[~2023-05-27 16:33] MED LIST changes: +CLOP-31 PO; -CLOP75TA69 PO; +FAMO-356 PO; -FAMO20TA3 PO; +ONDA8TAB13 SL; +PRD50T PO; +RT-ALBUINH INH
[2023-05-27 17:06] VITALS: BP 137/108
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
[2023-05-27] MEDS ORDERED: LIDOCAINE 4% PATCH TOP STA (17:27)
== END 2023-05-27 17:58 | disposition home or self-care (01) ==
LOC: EDUNIT# 16:33 → ER 16:36
DX: M53.3 Sacrococcygeal disorders, not elsewhere classified (principal); J42 Unspecified chronic bronchitis; E66.01 Morbid (severe) obesity due to excess calories; Z99.81 Dependence on supplemental oxygen; Z68.32 Body mass index [BMI] 32.0-32.9, adult; Z28.310 Unvaccinated for COVID-19; Z88.6 Allergy status to analgesic agent

== ENCOUNTER 2023-06-10 14:34 | Emergency (ER) | payer MEDICARE ==
[~2023-06-10] VITALS: Ht 172 cm; Wt 98.8 kg
[2023-06-10 14:55] LABS: BASOPHILS # (AUTO) 0.1 10^3/uL (0.0-0.1); BASOPHILS % (AUTO) 1 % (0-10); EOSINOPHILS # (AUTO) 0.2 10^3/uL (0.0-0.3); EOSINOPHILS % (AUTO) 3 % (0-10); HEMATOCRIT 38 % (35-52); HEMOGLOBIN 12.8 g/dL (11.5-16.0); LYMPHOCYTES # (AUTO) 2.4 10^3/uL (1.0-4.0); LYMPHOCYTES % (AUTO) 39 % (12-44); MEAN CORPUSCULAR HEMOGLOBIN 30 pg (25-34); MEAN CORPUSCULAR HGB CONC 34 g/dL (32-36); MEAN CORPUSCULAR VOLUME 90 fL (80-99); MEAN PLATELET VOLUME 10.5 fL (9.0-12.2); MONOCYTES # (AUTO) 0.5 10^3/uL (0.0-1.0); MONOCYTES % (AUTO) 9 % (0-12); NEUTROPHILS # (AUTO) 2.9 10^3/uL (1.8-7.8); NEUTROPHILS % (AUTO) 48 % (42-75); PLATELET COUNT 276 10^3/uL (130-400); WHITE BLOOD COUNT 6.1 10^3/uL (4.3-11.0)
[2023-06-10 15:05] LABS: INR 0.9 (0.8-1.4); PROTHROMBIN TIME PATIENT 12.4 SEC (12.2-14.7)
[2023-06-10 15:06] LABS: ALBUMIN 3.5 GM/DL (3.2-4.5); CHLORIDE 106 MMOL/L (98-107); POTASSIUM 4.6 MMOL/L (3.6-5.0); SODIUM 135 MMOL/L (135-145)
[2023-06-10 15:08] LABS: CALCIUM 8.7 MG/DL (8.5-10.1)
[2023-06-10 15:09] LABS: GLUCOSE 265 MG/DL (70-105); TOTAL PROTEIN 6.3 GM/DL (6.4-8.2)
[2023-06-10 15:10] LABS: BILIRUBIN,TOTAL 0.5 MG/DL (0.1-1.0); CARBON DIOXIDE 21 MMOL/L (21-32)
[2023-06-10 15:12] LABS: ALKALINE PHOSPHATASE 98 U/L (40-136); CREATININE SERUM 1.03 MG/DL (0.60-1.30); GFR ESTIMATED 66
--- NOTE | 2023-06-10 15:12 | Diagnostic Imaging Report ---
EXAMINATION: Chest 1 view HISTORY: Chest pain. COMPARISON: 06/27/2022. FINDINGS: The lung volumes are normal. No focal consolidation is seen. No large pleural effusion or pneumothorax is seen. The cardiomediastinal silhouette is normal in size with post-CABG changes. No acute osseous abnormality is seen. IMPRESSION: 1. No acute pleuroparenchymal process. Dictated by: Dictated on workstation # [id number]
[2023-06-10 15:13] LABS: BUN/CREATININE RATIO 16
[2023-06-10 15:15] LABS: ALANINE AMINOTRANSFERASE 11 U/L (0-55); MAGNESIUM 1.9 MG/DL (1.6-2.4)
[2023-06-10] MEDS ORDERED: LIDOCAINE 2% VISCOUS 15 ML UDC PO ONE (15:15)
[2023-06-10] MEDS ORDERED: ANTACID SUSPENSION 30 ML UDC PO ONE (15:15)
[2023-06-10] MEDS ORDERED: ONDANSETRON INJECTION 4 MG/2 ML (SDV) IVP ONE (15:15)
--- NOTE | 2023-06-10 15:18 | ED Chest Pain ---
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 EMS GAVE X4 BABY ASA AND 1 INCH OF NITRO PASTE. HX OF ME ON FATHERS DAY. Source: patient, old records Exam Limitations: no limitations History of Present Illness Date Seen by Provider: Jun 10, 2023 Time Seen by Provider: 14:41 Initial Comments This 48-year-old woman with known coronary artery disease presents to the emergency room via EMS with recent onset of chest pain that started about 1345. She has history of coronary artery disease status post CABG and stents. She reportedly had an ME in January of this year, but that is not noted on a visit in our medical record. She has had a total of 5 tablets of aspirin 81 mg today. EMS applied Nitropaste which has not seemed to improve her pain. She reports associated shortness of air and nausea. She rates her pain as 10/10. She additionally takes Brilinta and states good compliance with her medications. She has previously seen Dr. Aguilar for cardiology in [place] but now sees Dr. Romero at [facility] in [place]. Her primary care provider is Dr. Edwar Chamorro. She had a heart cath in July 2021 and her pain at that time was felt to be due to small vessel disease. See cath report for further details. Allergies and Home Medications Allergies Coded Allergies: Penicillins (Verified Allergy, Unknown, 05/16/21) Sulfa (Sulfonamide Antibiotics) (Verified Allergy, Unknown, 05/16/21) naproxen (Verified Allergy, Unknown, HIVES, NAUSEA--can take ibuprofen, 05/16/21) Patient Home Medication List Home Medication List Reviewed: Yes Albuterol Sulfate (Ventolin Hfa) 1 Puff Puff, 2 PUFF INH Q4H Prescribed by: MAYRA ARELLANO MD on 07/02/22 1707 Aripiprazole (Abilify) 15 Mg Tablet, 7.5 MG PO DAILY, (Reported) Entered as Reported by: SONJA OH on 06/27/21 1036 Aspirin (Aspirin EC) 81 Mg Tablet., 81 MG PO DAILY, (Reported) Entered as Reported by: SONJA OH on 05/24/21 0959 Atorvastatin Calcium (Atorvastatin Calcium) 80 Mg Tablet, 80 MG PO HS Prescribed by: MITCHELL LEBRON on 04/10/22 1423 Clopidogrel Bisulfate (Plavix) 75 Mg Tablet, 75 MG PO DAILY, (Reported) Entered as Reported by: SONJA OH on 05/26/21 1059 Cyclobenzaprine HCl (Cyclobenzaprine HCl) 10 Mg Tablet, 10 MG PO Q8H PRN for SPASMS Prescribed by: HEATH CAMARILLO on 04/22/22 2331 Eszopiclone (Lunesta) 2 Mg Tablet, 2 MG PO HS, (Reported) Entered as Reported by: DOLORES LARIOS on 08/15/21 1555 Ezetimibe (Ezetimibe) 10 Mg Tablet, 10 MG PO HS Prescribed by: MITCHELL LEBRON on 04/10/22 1423 Hydroxyzine HCl (Hydroxyzine HCl) 25 Mg Tablet, 25 MG PO BID PRN for ANXIETY, (Reported) Entered as Reported by: SONJA OH on 06/27/21 1036 Ibuprofen (Advil) 200 Mg Tablet, 200 MG PO Q8H PRN for PAIN-MILD (1-4), (Reported) Entered as Reported by: DOLORES LARIOS on 04/10/22 1409 Isosorbide Mononitrate (Isosorbide Mononitrate ER) 30 Mg Tab.er.24h, 30 MG PO DAILY Prescribed by: MITCHELL LEBRON on 04/10/22 1423 Metformin HCl (Metformin HCl) 500 Mg Tablet, 500 MG PO DAILY, (Reported) Entered as Reported by: DOLORES LARIOS on 08/15/21 1552 Metoprolol Tartrate (Metoprolol Tartrate) 25 Mg Tablet, 12.5 MG PO BID, (Reported) Entered as Reported by: SONJA OH on 05/26/21 1059 Nitroglycerin (Nitroglycerin) 0.3 Mg Tab.subl, 0.3 MG SL UD PRN for CHEST PAIN (ANGINA), (Reported) Entered as Reported by: DOLORES LARIOS on 04/10/22 1407 Ondansetron (Ondansetron Odt) 8 Mg Tab.rapdis, 8 MG SL Q4H PRN for NAUSEA/VOMITING Prescribed by: MAYRA ARELLANO MD on 07/02/22 1705 Oxycodone HCl/Acetaminophen (Percocet 5-325 mg Tablet) 1 Each Tablet, 1 TAB PO Q6H PRN for PAIN-BREAKTHROUGH Prescribed by: MARGARET HDEZ on 04/30/22 1924 Pantoprazole Sodium (Pantoprazole Sodium) 40 Mg Tablet.dr, 40 MG PO BID Prescribed by: RAINE HERNANDEZ on 06/04/22 1048 Prednisone (Prednisone) 50 Mg Tab, 50 MG PO DAILY Prescribed by: MAYRA ARELLANO MD on 07/02/22 1707 Sertraline HCl (Sertraline HCl) 100 Mg Tablet, 100 MG PO HS, (Reported) Entered as Reported by: SONJA OH on 06/27/21 1036 Varenicline Tartrate (Varenicline) 0.5 Mg (11)-1 Mg (42) Tab.ds.pk, 1 TAB PO UD, (Reported) Entered as Reported by: DOLORES LARIOS on 04/10/22 1406 Review of Systems Review of Systems Constitutional: no symptoms reported EENTM: No Symptoms Reported Respiratory: See HPI Cardiovascular: See HPI Gastrointestinal: See HPI Genitourinary: No Symptoms Reported Musculoskeletal: no symptoms reported Skin: no symptoms reported Psychiatric/Neurological: No Symptoms Reported Endocrine: No Symptoms Reported Hematologic/Lymphatic: No Symptoms Reported Past Goimblv-Tsfpev-Frwzsv Hx Patient Social History Tobacco Use?: Yes Tobacco type used: Cigarettes Substance use?: No Alcohol Use?: No Immunizations Up To Date Tetanus Booster (TDap): More than 5yrs First/Initial COVID19 Vaccinat: not vaccinated Second COVID19 Vaccination Mark: not vaccinated Third COVID19 Vaccination Date: not vaccinated Seasonal Allergies Seasonal Allergies: No Past Medical History Surgery/Hospitalization HX: CABG, VEIN HARVEST, T/A, CORNARY STENT, CHOLECYSTECTOMY, TRACH/REVERSAL, ASTHMA, CAD, HTN, ME, BOWSER, SEIZURE, HERPES, CERVICAL CA, GERI FUNDIPLICATION, ANXIETY/DEPRESSION, SUICIDE ATTEMPTS. 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: Hysterectomy, Menopausal Sexually Transmitted Disease: Yes (HERPES) Genitourinary: No Gastrointestinal: Yes (S/P GERI FUNDOPLICATION) Gastroesophageal Reflux, Esophagitis, Hiatal Hernia, Gall Bladder Disease Musculoskeletal: Yes Arthritis Endocrine: Yes (MORBID OBESITY) Hypothyroidsim, Diabetes, Non-Insulin dep HEENT: Yes Chronic Ear Infection Hearing Impairment: Hard of Hearing Cancer: Yes Cervical Did You Recieve Any Treatments: Yes What Type of Treatment Did You: Surgical Intervention Psychosocial: Yes Sleep Difficulties, Anxiety, Suicide Attempts, Depression Integumentary: No Blood Disorders: No Adverse Reaction/Blood Tranf: No Family Medical History Heart Disease SEE OLD CHARTS FOR DETAILS Physical Exam Vital Signs Vital Signs - First Documented 06/10/23 14:37 Temp 36.2 Pulse 81 Resp 16 B/P (MAP) 142/82 (102) Pulse Ox 99 O2 Delivery Room Air Capillary Refill : Less Than 3 Seconds Height, Weight, BMI Height: 5'8.00" Weight: 189lbs. 0.0oz. 85.554715pe; 33.00 BMI Method:Stated General Appearance: No Apparent Distress, Mild Distress HEENT: PERRL/EOMI, Normal ENT Inspection Neck: Normal Inspection; No JVD Respiratory: Chest Non Tender, Lungs Clear, Normal Breath Sounds, No Accessory Muscle Use, No Respiratory Distress Cardiovascular: Regular Rate, Rhythm, No Edema, No Murmur Gastrointestinal: Normal Bowel Sounds, Non Tender, Soft Extremity: Normal Inspection, Non Tender, No Calf Tenderness, No Pedal Edema Neurologic/Psychiatric: Alert, Oriented x3, No Motor/Sensory Deficits, Normal Mood/Affect Skin: Normal Color, Warm/Dry Progress/Results/Core Measures Results/Orders Lab Results Laboratory Tests Test 06/10/23 14:40 06/10/23 15:41 Range/Units White Blood Count 6.1 4.3-11.0 10^3/uL Red Blood Count 4.21 3.80-5.11 10^6/uL Hemoglobin 12.8 11.5-16.0 g/dL Hematocrit 38 35-52 % Mean Corpuscular Volume 90 80-99 fL Mean Corpuscular Hemoglobin 30 25-34 pg Mean Corpuscular Hemoglobin Concent 34 32-36 g/dL Red Cell Distribution Width 13.2 10.0-14.5 % Platelet Count 276 130-400 10^3/uL Mean Platelet Volume 10.5 9.0-12.2 fL Immature Granulocyte % (Auto) 0 % Neutrophils (%) (Auto) 48 42-75 % Lymphocytes (%) (Auto) 39 12-44 % Monocytes (%) (Auto) 9 0-12 % Eosinophils (%) (Auto) 3 0-10 % Basophils (%) (Auto) 1 0-10 % Neutrophils # (Auto) 2.9 1.8-7.8 10^3/uL Lymphocytes # (Auto) 2.4 1.0-4.0 10^3/uL Monocytes # (Auto) 0.5 0.0-1.0 10^3/uL Eosinophils # (Auto) 0.2 0.0-0.3 10^3/uL Basophils # (Auto) 0.1 0.0-0.1 10^3/uL Immature Granulocyte # (Auto) 0.0 0.0-0.1 10^3/uL Prothrombin Time 12.4 12.2-14.7 SEC INR Comment 0.9 0.8-1.4 Activated Partial Thromboplast Time 28 24-35 SEC Sodium Level 135 135-145 MMOL/L Potassium Level 4.6 3.6-5.0 MMOL/L Chloride Level 106 98-107 MMOL/L Carbon Dioxide Level 21 21-32 MMOL/L Anion Gap 8 5-14 MMOL/L Blood Urea Nitrogen 16 7-18 MG/DL Creatinine 1.03 0.60-1.30 MG/DL Estimat Glomerular Filtration Rate 66 BUN/Creatinine Ratio 16 Glucose Level 265 H 70-105 MG/DL Calcium Level 8.7 8.5-10.1 MG/DL Corrected Calcium 9.1 8.5-10.1 MG/DL Magnesium Level 1.9 1.6-2.4 MG/DL Total Bilirubin 0.5 0.1-1.0 MG/DL Aspartate Amino Transf (AST/SGOT) 10 5-34 U/L Alanine Aminotransferase (ALT/SGPT) 11 0-55 U/L Alkaline Phosphatase 98 40-136 U/L Myoglobin 19.0 10.0-92.0 NG/ML Troponin I < 0.028 <0.028 NG/ML Total Protein 6.3 L 6.4-8.2 GM/DL Albumin 3.5 3.2-4.5 GM/DL D-Dimer 0.68 H 0.00-0.49 UG/ML My Orders Orders - DORA ROMERO MD Ekg Tracing (06/10/23 14:36) Cbc And Automated Diff (06/10/23 14:50) Magnesium (06/10/23 14:50) Chest 1 View, Ap/Pa Only (06/10/23 14:50) Comprehensive Metabolic Panel (06/10/23 14:50) Myoglobin Serum (06/10/23 14:50) Protime With Inr (06/10/23 14:50) Partial Thromboplastin Time (06/10/23 14:50) O2 (06/10/23 14:50) Monitor-Rhythm Ecg Trace Only (06/10/23 14:50) Ed Iv/Invasive Line Start (06/10/23 14:50) Troponin I Kt (06/10/23 14:50) Ondansetron Injection (Ondansetron Inj (06/10/23 15:15) Lidocaine 2% Viscous 15 Ml (Xylocaine Vi (06/10/23 15:15) Antacid Suspension (Antacid Suspension (06/10/23 15:15) Morphine Injection (Morphine Injection (06/10/23 15:45) Fibrin Degradation Products (06/10/23 15:38) Ct Angio Chest W (R/O Pe) (06/10/23 15:57) Iohexol Injection (Omnipaque 350 Mg/Ml 1 (06/10/23 16:00) Received Contrast (Hold Metformin- Contr (06/10/23 16:00) Ns (Ivpb) 100 Ml (Sodium Chloride 0.9% 1 (06/10/23 16:00) Morphine Injection (Morphine Injection (06/10/23 16:45) Medications Given in ED Vital Signs/I&O 06/10/23 06/10/23 14:37 17:50 Temp 36.2 Pulse 81 68 Resp 16 16 B/P (MAP) 142/82 (102) 117/72 Pulse Ox 99 97 O2 Delivery Room Air Room Air Blood Pressure Mean: 102 Progress Progress Note #1: Time: 16:37 Progress Note Cardiopulmonary work-up thus far has been unremarkable. EKG demonstrated no evidence of ischemia as noted in my interpretation below. Labs were relatively unremarkable as reviewed and interpreted by me. CBC was normal. CMP was no table only for a blood sugar of 265. Troponin was negative and myoglobin was normal. D-dimer was elevated at 0.68. This was followed by CT angiogram which revealed no pulmonary embolus or other pathology to explain her pain. The CT images were reviewed by me and were unremarkable by my interpretation. Radiologist's report was also reviewed as below. [facility] with [facility]. This did not alter her pain at all. She was then treated with morphine. This helped her pain for a short period of time. She reports her pain is now back up to 9/10. Another dose of morphine will be administered. Unfortunately, [facility] in [place] has no cardiology coverage at this time. Given her active chest pain and history of coronary artery disease, I am recommending that she be admitted at a facility with cardiology services. She sees Dr. Romero, electrical power engineer at [facility] whose name she cannot recall. I will try admitting there first. Progress Note #2: Time: 17:09 Progress Note Transfer was accepted to [facility] in [place] via the ER due to her active chest pain. Progress Note #3: Time: 17:50 Progress Note Patient is departing with [facility] for transfer to [place]. She has remained hemodynamically stable. Pain has been controlled with opioid medications. Case was reviewed with the receiving physician in the [facility] ER. Initial ECG Impression Date: Jun 10, 2023 Initial ECG Impression Time: 14:45 Initial ECG Rate: 78 Initial ECG Rhythm: Normal Sinus Comment Sinus rhythm with no ST elevation or depression. No significant abnormal intervals or axis deviation. Diagnostic Imaging Diagonstic Imaging: Xray Plain Films/CT/US/NM/MRI: chest Comments NAME: WAN DA SILVA MED REC#: [id number] PT STATUS: REG ER : 1975 PHYSICIAN: DORA ROMERO MD ADMIT DATE: 06/10/23/ER Signed Date of Exam:06/10/23 CHEST 1 VIEW, AP/PA ONLY EXAMINATION: Chest 1 view HISTORY: Chest pain. COMPARISON: 06/27/2022. FINDINGS: The lung volumes are normal. No focal consolidation is seen. No large pleural effusion or pneumothorax is seen. The cardiomediastinal silhouette is normal in size with post-CABG changes. No acute osseous abnormality is seen. IMPRESSION: 1. No acute pleuroparenchymal process. Dictated by: Dictated on workstation # [id number] Dict: 06/10/23 1504 Trans: 06/10/23 1518 [facility] [id number] Interpreted by: MEGAN MITCHELL DO Electronically signed by: MEGAN MITCHELL DO 06/10/23 1518 Diagonstic Imaging: CT Plain Films/CT/US/NM/MRI: chest Comments NAME: WAN DA SILVA [facility] REC#: [id number] PT STATUS: REG ER : 1975 PHYSICIAN: DORA ROMERO MD ADMIT DATE: 06/10/23/ER Signed Date of Exam:06/10/23 CT ANGIO CHEST W (R/O PE) INDICATION: Chest pain, elevated d-dimer. COMPARISON: 04/10/2022. TECHNIQUE: Contiguous axial images were obtained through the chest during the intravenous ministration of contrast. MIP reconstructions were created and evaluated. DISCUSSION: Mild emphysema is noted. No pulmonary embolus identified. Pulmonary arteries are not dilated. Aortic arch shows a bovine branch configuration. Stent within the origin of the left subclavian artery. Normal heart size. No pleural or pericardial fluid. Small hiatal hernia. The gallbladder is surgically absent. Upper abdomen is otherwise unremarkable. No consolidation or pulmonary lesion. No osseous abnormality. IMPRESSION: 1. No pulmonary embolus or other acute abnormality within the chest. Dictated by: Dictated on workstation # [id number] Dict: 06/10/23 1622 Trans: 06/10/23 1625 [facility] [id number] Interpreted by: SYED BRIAN MD Electronically signed by: SYED BRIAN MD 06/10/23 1625 Departure Impression Primary Impression: Chest wall pain Additional Impressions: Small vessel coronary artery disease History of coronary artery disease Disposition: XFER SHT-TRM HOSP Condition: Stable Admissions Decision to Admit/Date: Jun 10, 2023 Time/Decision to Admit Time: 17:50 Transfer Transfer Reason: Exceeds level of care Time Spoke to Accepting [facility]: 16:50 Transfer Progress Notes Transfer accepted by Dr. Chris, ER provider at [facility]. Transfer Time: 17:50 Transfer Facility: [facility] Method of Transfer: EMS Departure-Patient Inst. Referrals: EDWAR CHAMORRO DO (PCP/Family) Primary Care Physician Copy Copies To 1: EDWAR CHAMORRO DO Copies To 2: JIMENA AGUILAR MD FACP FACC CCDS DORA ROMERO MD Jun 10, 2023 15:18
[2023-06-10] MEDS ORDERED: morphine INJ 4 MG/ML 1 ML (VIAL/SYRINGE) IVP ONE ×2 (15:45→16:45)
[2023-06-10] MEDS ORDERED: IOHEXOL 350 MG/ML 100 ML (OMNIPAQUE 350) VIAL IV ONE (16:00)
[2023-06-10] MEDS ORDERED: NS 100 ML (IVPB) BAG IV ONE (16:00)
[2023-06-10] MEDS ORDERED: HOLD METFORMIN - RECEIVED CONTRAST 20 ML VIAL IV SCH (16:00)
--- NOTE | 2023-06-10 16:26 | Diagnostic Imaging Report ---
INDICATION: Chest pain, elevated d-dimer. COMPARISON: 04/10/2022. TECHNIQUE: Contiguous axial images were obtained through the chest during the intravenous ministration of contrast. MIP reconstructions were created and evaluated. DISCUSSION: Mild emphysema is noted. No pulmonary embolus identified. Pulmonary arteries are not dilated. Aortic arch shows a bovine branch configuration. Stent within the origin of the left subclavian artery. Normal heart size. No pleural or pericardial fluid. Small hiatal hernia. The gallbladder is surgically absent. Upper abdomen is otherwise unremarkable. No consolidation or pulmonary lesion. No osseous abnormality. IMPRESSION: 1. No pulmonary embolus or other acute abnormality within the chest. Dictated by: Dictated on workstation # [id number]
[2023-06-10 17:50] VITALS: BP 117/72
== END 2023-06-10 17:50 | disposition short-term general hospital (02) ==
LOC: EDUNIT# 14:34 → ER 14:36
DX: I25.10 Atherosclerotic heart disease of native coronary artery without angina pectoris (principal); I25.2 Old myocardial infarction; I10 Essential (primary) hypertension; R79.89 Other specified abnormal findings of blood chemistry; J42 Unspecified chronic bronchitis; E66.01 Morbid (severe) obesity due to excess calories; F17.210 Nicotine dependence, cigarettes, uncomplicated; Z99.81 Dependence on supplemental oxygen; Z95.1 Presence of aortocoronary bypass graft; Z68.33 Body mass index [BMI] 33.0-33.9, adult
CPT/HCPCS: 36415; 71045; 71275; 80053; 83735; 83874; 84484; 85025; 85379; 85610; 85730; 93005; 93041; 96374; 96375; 96376

== ENCOUNTER 2023-07-05 17:05 | Emergency (ER) | payer MEDICARE ==
[~2023-07-05] VITALS: Ht 172.7 cm; Wt 102.0 kg
[~2023-07-05 17:05] MED LIST changes: -ESZO2TAB4 PO; +ESZO2TAB56 PO
[2023-07-05] MEDS ORDERED: morphine INJ 10 MG/ML 1ML (SYR OR VIAL) IV STA (17:13)
[2023-07-05] MEDS ORDERED: ASPIRIN 81 MG CHEWABLE TABLET PO ONE (17:15)
--- NOTE | 2023-07-05 17:16 | ED Chest Pain ---
General Chief Complaint: Chest Pain Stated Complaint: CHEST PIAN, SOA, NAUSEA Nursing Triage Note: PT AMB TO [facility] WITH CC OF CP AND SOB THAT STARTED 20 MINUTES AGO WHEN SHE WAS LAYING DOWN. PT TOOK 2 NITROS AND HAD NO RELIEF. CARDIAC HX. Source: patient Exam Limitations: no limitations History of Present Illness Date Seen by Provider: Jul 05, 2023 Time Seen by Provider: 17:14 Initial Comments Patient is a 48-year-old female with a history of coronary artery disease, CABG, diabetes, hypertension, high cholesterol, smoking presents ED with left-sided chest pain. This started 20 minutes ago while laying down at home. Pain is described as pressure and sharp located left-sided chest. Pain radiates down the left arm. Associated shortness of breath and nausea. She rates pain 9 out of 10. She took 2 nitro without much improvement. Similar type pain in the past. She denies fever, chills, body aches, Monico pain, vomiting, diarrhea, pain with urination, recent travels or surgeries. Denies any leg swelling. She is currently on aspirin and Brilinta. Allergies and Home Medications Allergies Coded Allergies: Penicillins (Verified Allergy, Unknown, 05/16/21) Sulfa (Sulfonamide Antibiotics) (Verified Allergy, Unknown, 05/16/21) naproxen (Verified Allergy, Unknown, HIVES, NAUSEA--can take ibuprofen, 05/16/21) Patient Home Medication List Home Medication List Reviewed: Yes Albuterol Sulfate (Ventolin Hfa) 1 Puff Puff, 2 PUFF INH Q4H Prescribed by: MAYRA ARELLANO MD on 07/02/22 1707 Aripiprazole (Abilify) 15 Mg Tablet, 7.5 MG PO DAILY, (Reported) Entered as Reported by: SONJA OH on 06/27/21 1036 Aspirin (Aspirin EC) 81 Mg Tablet.dr, 81 MG PO DAILY, (Reported) Entered as Reported by: SONJA OH on 05/24/21 0959 Atorvastatin Calcium (Atorvastatin Calcium) 80 Mg Tablet, 80 MG PO HS Prescribed by: MITCHELL LEBRON on 04/10/22 1423 Clopidogrel Bisulfate (Plavix) 75 Mg Tablet, 75 MG PO DAILY, (Reported) Entered as Reported by: SONJA OH on 05/26/21 1059 Cyclobenzaprine HCl (Cyclobenzaprine HCl) 10 Mg Tablet, 10 MG PO Q8H PRN for SPASMS Prescribed by: HEATH CAMARILLO on 04/22/22 2331 Eszopiclone (Lunesta) 2 Mg Tablet, 2 MG PO HS, (Reported) Entered as Reported by: DOLORES LARIOS on 08/15/21 1555 Ezetimibe (Ezetimibe) 10 Mg Tablet, 10 MG PO HS Prescribed by: MITCHELL LEBRON on 04/10/22 1423 Hydroxyzine HCl (Hydroxyzine HCl) 25 Mg Tablet, 25 MG PO BID PRN for ANXIETY, (Reported) Entered as Reported by: SONJA OH on 06/27/21 1036 Ibuprofen (Advil) 200 Mg Tablet, 200 MG PO Q8H PRN for PAIN-MILD (1-4), (Reported) Entered as Reported by: DOLORES LARIOS on 04/10/22 1409 Isosorbide Mononitrate (Isosorbide Mononitrate ER) 30 Mg Tab.er.24h, 30 MG PO DAILY Prescribed by: MITCHELL LEBRON on 04/10/22 1423 Metformin HCl (Metformin HCl) 500 Mg Tablet, 500 MG PO DAILY, (Reported) Entered as Reported by: DOLORES LARIOS on 08/15/21 1552 Metoprolol Tartrate (Metoprolol Tartrate) 25 Mg Tablet, 12.5 MG PO BID, (Reported) Entered as Reported by: SONJA OH on 05/26/21 1059 Nitroglycerin (Nitroglycerin) 0.3 Mg Tab.subl, 0.3 MG SL UD PRN for CHEST PAIN (ANGINA), (Reported) Entered as Reported by: DOLORES LARIOS on 04/10/22 1407 Ondansetron (Ondansetron Odt) 8 Mg Tab.rapdis, 8 MG SL Q4H PRN for NAUSEA/VOMITING Prescribed by: MAYRA ARELLNAO MD on 07/02/22 1705 Oxycodone HCl/Acetaminophen (Percocet 5-325 mg Tablet) 1 Each Tablet, 1 TAB PO Q6H PRN for PAIN-BREAKTHROUGH Prescribed by: MARGARET HDEZ on 04/30/22 1924 Pantoprazole Sodium (Pantoprazole Sodium) 40 Mg Tablet.dr, 40 MG PO BID Prescribed by: RAINE HERNANDEZ on 06/04/22 1048 Prednisone (Prednisone) 50 Mg Tab, 50 MG PO DAILY Prescribed by: MAYRA ARELLANO MD on 07/02/22 1707 Sertraline HCl (Sertraline HCl) 100 Mg Tablet, 100 MG PO HS, (Reported) Entered as Reported by: SONJA OH on 06/27/21 1036 Varenicline Tartrate (Varenicline) 0.5 Mg (11)-1 Mg (42) Tab.ds.pk, 1 TAB PO UD, (Reported) Entered as Reported by: DOLORES LARIOS on 04/10/22 1406 Review of Systems Review of Systems Constitutional: No chills, No diaphoresis, No malaise, No weakness EENTM: No Double Vision, No Eye Pain Respiratory: Denies Cough, Denies Orthopnea; Shortness of Air Cardiovascular: Chest Pain Gastrointestinal: Denies Abdominal Pain, Denies Diarrhea; Nausea; Denies Vo miting Genitourinary: Denies Burning, Denies Discharge, Denies Drainage, Denies Frequency Musculoskeletal: No back pain, No gout Skin: No change in color, No change in hair/nails All Other Systems Reviewed Negative Unless Noted: Yes Past Eypehxt-Tkoihb-Mjuvhs Hx Patient Social History Tobacco Use?: Yes Tobacco type used: Cigarettes Substance use?: No Alcohol Use?: No Immunizations Up To Date Tetanus Booster (TDap): More than 5yrs First/Initial COVID19 Vaccinat: not vaccinated Second COVID19 Vaccination Mark: not vaccinated Third COVID19 Vaccination Date: not vaccinated Seasonal Allergies Seasonal Allergies: No Past Medical History Surgery/Hospitalization HX: CABG, VEIN HARVEST, T/A, CORNARY STENT, CHOLECYSTECTOMY, TRACH/REVERSAL, ASTHMA, CAD, HTN, PA, OBWSER, SEIZURE, HERPES, CERVICAL CA, FABRICE FUNDIPLICATION, ANXIETY/DEPRESSION, SUICIDE ATTEMPTS. 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, Menopausal Sexually Transmitted Disease: Yes (HERPES) Genitourinary: No Gastrointestinal: Yes (S/P FABRICE FUNDOPLICATION) Gastroesophageal Reflux, Esophagitis, Hiatal Hernia, Gall Bladder Disease Musculoskeletal: Yes Arthritis Endocrine: Yes (MORBID OBESITY) Hypothyroidsim, Diabetes, Non-Insulin dep HEENT: Yes Chronic Ear Infection Hearing Impairment: Hard of Hearing Cancer: Yes Cervical Did You Recieve Any Treatments: Yes What Type of Treatment Did You: Surgical Intervention Psychosocial: Yes Sleep Difficulties, Anxiety, Suicide Attempts, Depression Integumentary: No Blood Disorders: No Adverse Reaction/Blood Tranf: No Family Medical History Heart Disease SEE OLD CHARTS FOR DETAILS Physical Exam Vital Signs Vital Signs - First Documented 07/05/23 17:07 Pulse 92 B/P (MAP) 147/107 (120) Pulse Ox 100 O2 Delivery Room Air Capillary Refill : Height, Weight, BMI Height: 5'8.00" Weight: 189lbs. 0.0oz. [id number]; 34.00 BMI Method:Stated General Appearance: No Apparent Distress, WD/WN HEENT: PERRL/EOMI, TMs Normal, Normal ENT Inspection, Pharynx Normal Neck: Full Range of Motion, Normal Inspection, Non Tender, Supple Respiratory: Chest Non Tender, Lungs Clear, Normal Breath Sounds, No Accessory Muscle Use, No Respiratory Distress Cardiovascular: Regular Rate, Rhythm, No Edema, No Gallop, No JVD Gastrointestinal: Normal Bowel Sounds, No Organomegaly, No Pulsatile Mass, Non Tender Extremity: Normal Capillary Refill, Normal Inspection, Normal Range of Motion, Non Tender Neurologic/Psychiatric: Alert, Oriented x3, No Motor/Sensory Deficits, Normal Mood/Affect, program professional II-XII Norm as Tested Skin: Normal Color, Warm/Dry Progress/Results/Core Measures Results/Orders Lab Results Laboratory Tests Test 07/05/23 17:10 Range/Units White Blood Count 6.5 4.3-11.0 10^3/uL Red Blood Count 4.64 3.80-5.11 10^6/uL Hemoglobin 14.3 11.5-16.0 g/dL Hematocrit 43 35-52 % Mean Corpuscular Volume 93 80-99 fL Mean Corpuscular Hemoglobin 31 25-34 pg Mean Corpuscular Hemoglobin Concent 33 32-36 g/dL Red Cell Distribution Width 13.9 10.0-14.5 % Platelet Count 310 130-400 10^3/uL Mean Platelet Volume 10.6 9.0-12.2 fL Immature Granulocyte % (Auto) 0 % Neutrophils (%) (Auto) 50 42-75 % Lymphocytes (%) (Auto) 38 12-44 % Monocytes (%) (Auto) 8 0-12 % Eosinophils (%) (Auto) 2 0-10 % Basophils (%) (Auto) 1 0-10 % Neutrophils # (Auto) 3.3 1.8-7.8 10^3/uL Lymphocytes # (Auto) 2.5 1.0-4.0 10^3/uL Monocytes # (Auto) 0.5 0.0-1.0 10^3/uL Eosinophils # (Auto) 0.2 0.0-0.3 10^3/uL Basophils # (Auto) 0.1 0.0-0.1 10^3/uL Immature Granulocyte # (Auto) 0.0 0.0-0.1 10^3/uL Prothrombin Time 12.6 12.2-14.7 SEC INR Comment 0.9 0.8-1.4 Activated Partial Thromboplast Time 27 24-35 SEC Sodium Level 135 135-145 MMOL/L Potassium Level 4.5 3.6-5.0 MMOL/L Chloride Level 102 98-107 MMOL/L Carbon Dioxide Level 23 21-32 MMOL/L Anion Gap 10 5-14 MMOL/L Blood Urea Nitrogen 20 H 7-18 MG/DL Creatinine 1.06 0.60-1.30 MG/DL Estimat Glomerular Filtration Rate 64 BUN/Creatinine Ratio 19 Glucose Level 162 H 70-105 MG/DL Calcium Level 9.5 8.5-10.1 MG/DL Corrected Calcium 9.3 8.5-10.1 MG/DL Magnesium Level 2.2 1.6-2.4 MG/DL Total Bilirubin 0.9 0.1-1.0 MG/DL Aspartate Amino Transf (AST/SGOT) 18 5-34 U/L Alanine Aminotransferase (ALT/SGPT) 20 0-55 U/L Alkaline Phosphatase 126 40-136 U/L Myoglobin 30.1 10.0-92.0 NG/ML Troponin I < 0.028 <0.028 NG/ML B-Type Natriuretic Peptide 37.8 <100.0 PG/ML Total Protein 7.9 6.4-8.2 GM/DL Albumin 4.2 3.2-4.5 GM/DL Lipase 34 8-78 U/L My Orders Orders - KISHORE TYSON PA Ekg Tracing (07/05/23 17:06) Ekg Tracing (07/05/23 17:06) Ekg Tracing (07/05/23 17:08) Cbc And Automated Diff (07/05/23 17:13) Magnesium (07/05/23 17:13) Chest 1 View, Ap/Pa Only (07/05/23 17:13) Comprehensive Metabolic Panel (07/05/23 17:13) Myoglobin Serum (07/05/23 17:13) Protime With Inr (07/05/23 17:13) Partial Thromboplastin Time (07/05/23 17:13) O2 (07/05/23 17:13) Monitor-Rhythm Ecg Trace Only (07/05/23 17:13) Ed Iv/Invasive Line Start (07/05/23 17:13) Lipase (07/05/23 17:13) Bnp Kt (07/05/23 17:13) Troponin I Harney (07/05/23 17:13) Aspirin Chewable Tablet (Aspirin Chewabl (07/05/23 17:15) Morphine Injection (Morphine Injection (07/05/23 17:13) Ondansetron Injection (Ondansetron Inj (07/05/23 18:00) Fentanyl Injection (Fentanyl Injection (07/05/23 18:03) Nitroglycerin 0.4 Mg Btl 25's (Nitroglyc (07/05/23 18:15) Ed Admission (Communication) (07/05/23 19:35) Medications Given in ED Current Medications Medications Dose Ordered Sig/Sara Route Start Time Stop Time Status Last Admin Dose Admin Aspirin 324 mg ONCE ONCE PO 07/05/23 17:15 07/05/23 17:16 DC 07/05/23 17:24 324 MG Nitroglycerin 1 TAB Q 5 MIN X 3 NEEDED PRN SL 07/05/23 18:15 07/05/23 19:45 DC 07/05/23 18:10 0.4 MG Ondansetron HCl 4 mg ONCE ONCE IVP 07/05/23 18:00 07/05/23 18:01 DC 07/05/23 18:01 4 MG Vital Signs/I&O 07/05/23 07/05/23 17:07 19:42 Pulse 92 81 B/P (MAP) 147/107 (120) 106/89 Pulse Ox 100 100 O2 Delivery Room Air Room Air Blood Pressure Mean: 120 Departure Communication (PCP) Reviewed previous ER visits, H&P, lab testing. Patient has been seen multiple visits in the past for left-sided chest pain. Chronic unstable angina. Patient Was transferred to [facility] last month had a nuclear stress test which were consistent for collateralized RCA occlusion and patient would not benefit from heart cath at that time. Was treated conservatively. Cardiology Added Ranexa to patient's medication. Stable for cardiac discharge. She states she has been taking her medication. Acute onset of nonexertional left-sided chest pain. EKG did not show any evidence of ST elevation or depression or arrhythmia. Similar type EKG from previous visits. CBC, CMP grossly markable. Normal troponin and BNP. She was not tachycardic or hypoxic. Did take 2 nitro at home 1 here without much improvement. Received fentanyl and morphine with improvement. She did receive a full aspirin. Chest x-ray was negative for pneumonia, pneumothorax. Pulmonary vascular congestion. Pain started to return. Discussed admission for observation serial troponins. Patient was wanting to go home. She states she has a history of this similar type pain and typically will come and go improve with time. She does have her medication at home according to patient. 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 If any worsening symptoms such as chest pain or shortness of breath to return back to ED. Impression Primary Impression: Chest pain Disposition: 01 HOME, SELF-CARE Condition: Stable Admissions Decision to Admit Reason: Admit from ER (General) Decision to Admit/Date: Jul 05, 2023 Time/Decision to Admit Time: 19:34 Departure-Patient Inst. Decision time for Depature: 19:39 Referrals: EDWAR LOBO DO (PCP/Family) Primary Care Physician Patient Instructions: Chest Pain Add. Discharge Instructions: Need to continue taking her medication. Outpatient cardiac follow-up. If any worsening symptoms return back to ED. All discharge instructions reviewed with patient and/or family. Voiced understanding. KISHORE TYSON Jul 05, 2023 17:16
[2023-07-05 17:18] LABS: BASOPHILS # (AUTO) 0.1 10^3/uL (0.0-0.1); BASOPHILS % (AUTO) 1 % (0-10); EOSINOPHILS # (AUTO) 0.2 10^3/uL (0.0-0.3); EOSINOPHILS % (AUTO) 2 % (0-10); HEMATOCRIT 43 % (35-52); HEMOGLOBIN 14.3 g/dL (11.5-16.0); LYMPHOCYTES # (AUTO) 2.5 10^3/uL (1.0-4.0); LYMPHOCYTES % (AUTO) 38 % (12-44); MEAN CORPUSCULAR HEMOGLOBIN 31 pg (25-34); MEAN CORPUSCULAR HGB CONC 33 g/dL (32-36); MEAN CORPUSCULAR VOLUME 93 fL (80-99); MEAN PLATELET VOLUME 10.6 fL (9.0-12.2); MONOCYTES # (AUTO) 0.5 10^3/uL (0.0-1.0); MONOCYTES % (AUTO) 8 % (0-12); NEUTROPHILS # (AUTO) 3.3 10^3/uL (1.8-7.8); NEUTROPHILS % (AUTO) 50 % (42-75); PLATELET COUNT 310 10^3/uL (130-400); WHITE BLOOD COUNT 6.5 10^3/uL (4.3-11.0)
[2023-07-05 17:27] LABS: ALBUMIN 4.2 GM/DL (3.2-4.5)
[2023-07-05 17:28] LABS: CHLORIDE 102 MMOL/L (98-107); INR 0.9 (0.8-1.4); POTASSIUM 4.5 MMOL/L (3.6-5.0); PROTHROMBIN TIME PATIENT 12.6 SEC (12.2-14.7); SODIUM 135 MMOL/L (135-145)
[2023-07-05 17:29] LABS: CALCIUM 9.5 MG/DL (8.5-10.1)
[2023-07-05 17:30] LABS: GLUCOSE 162 MG/DL (70-105); TOTAL PROTEIN 7.9 GM/DL (6.4-8.2)
[2023-07-05 17:31] LABS: CARBON DIOXIDE 23 MMOL/L (21-32)
[2023-07-05 17:32] LABS: BILIRUBIN,TOTAL 0.9 MG/DL (0.1-1.0)
[2023-07-05 17:34] LABS: ALKALINE PHOSPHATASE 126 U/L (40-136); CREATININE SERUM 1.06 MG/DL (0.60-1.30); GFR ESTIMATED 64
[2023-07-05 17:35] LABS: BUN/CREATININE RATIO 19
[2023-07-05 17:37] LABS: ALANINE AMINOTRANSFERASE 20 U/L (0-55); MAGNESIUM 2.2 MG/DL (1.6-2.4)
[2023-07-05 17:38] LABS: LIPASE 34 U/L (8-78)
--- NOTE | 2023-07-05 17:39 | Diagnostic Imaging Report ---
INDICATION: Chest pain, shortness of air and nausea. Prior heart surgery. EXAMINATION: Chest, 07/05/2023. COMPARISON: 06/10/2023. FINDINGS: There is a stent in the medial left upper chest with sternotomy wires noted. Heart unremarkable. Pulmonary vasculature appears slightly congested. No infiltrate, effusion or pneumothorax. IMPRESSION: Suspected pulmonary vascular congestion. Dictated by: Dictated on workstation # [id number]
[2023-07-05] MEDS ORDERED: ONDANSETRON INJECTION 4 MG/2 ML (SDV) IVP ONE (18:00)
[2023-07-05] MEDS ORDERED: fentaNYL INJECTION 100 MCG/2 ML VIAL IVP STA (18:03)
[2023-07-05] MEDS ORDERED: NITROGLYCERIN 0.4 MG SL TABLETS BTL 25'S SL PRN (18:15)
[2023-07-05 19:42] VITALS: BP 106/89
== END 2023-07-05 19:45 | disposition home or self-care (01) ==
LOC: EDUNIT# 17:05 → ER 17:06
DX: R07.89 Other chest pain (principal); I20.0 Unstable angina; I10 Essential (primary) hypertension; R11.0 Nausea; J42 Unspecified chronic bronchitis; F17.210 Nicotine dependence, cigarettes, uncomplicated; E66.01 Morbid (severe) obesity due to excess calories; Z99.81 Dependence on supplemental oxygen; Z79.82 Long term (current) use of aspirin; Z79.02 Long term (current) use of antithrombotics/antiplatelets; Z68.34 Body mass index [BMI] 34.0-34.9, adult
CPT/HCPCS: 36415; 71045; 80053; 83690; 83735; 83874; 83880; 84484; 85025; 85610; 85730; 93005; 93041; 96374; 96375

== ENCOUNTER 2023-07-24 17:53 | Observation (INO) | payer MEDICARE ==
[2023-07-24] VITALS (8 sets, daily range): BP systolic 90–127; BP diastolic 61–74
[~2023-07-24] VITALS: Ht 172.7 cm; Wt 106.4 kg
[2023-07-24] MEDS ORDERED: NITROGLYCERIN 0.4 MG SL TABLETS BTL 25'S SL PRN ×2 (18:00→22:30)
[2023-07-24] MEDS ORDERED: ASPIRIN 81 MG CHEWABLE TABLET PO ONE (18:00)
[2023-07-24 18:08] LABS: BASOPHILS % (AUTO) 1 % (0-10); EOSINOPHILS # (AUTO) 0.2 10^3/uL (0.0-0.3); EOSINOPHILS % (AUTO) 3 % (0-10); HEMATOCRIT 42 % (35-52); HEMOGLOBIN 14.1 g/dL (11.5-16.0); LYMPHOCYTES # (AUTO) 2.2 10^3/uL (1.0-4.0); LYMPHOCYTES % (AUTO) 32 % (12-44); MEAN CORPUSCULAR HEMOGLOBIN 31 pg (25-34); MEAN CORPUSCULAR HGB CONC 34 g/dL (32-36); MEAN CORPUSCULAR VOLUME 92 fL (80-99); MEAN PLATELET VOLUME 10.4 fL (9.0-12.2); MONOCYTES # (AUTO) 0.4 10^3/uL (0.0-1.0); MONOCYTES % (AUTO) 5 % (0-12); NEUTROPHILS # (AUTO) 4.1 10^3/uL (1.8-7.8); NEUTROPHILS % (AUTO) 58 % (42-75); PLATELET COUNT 246 10^3/uL (130-400)
[2023-07-24] MEDS ORDERED: NITROGLYCERIN 2% OINT 1 GM UNIT DOSE PACKET TOP ONE (18:15)
--- NOTE | 2023-07-24 18:16 | ED Chest Pain ---
General Chief Complaint: Chest Pain Stated Complaint: CHEST PAIN Nursing Triage Note: PT TO RM 8 BY WC WITH CC OF CHEST PAIN X 10 MIN. PT REPORTS WAS SITTING AT HOME WHEN CHEST PAIN BEGAN. PT STATES SUDDEN ONSET OF SOA, DIAPHORESIS AND NAUSEA. PT REPROTS CARDIAC HX. PT A&OX4 Source: patient, old records History of Present Illness Date Seen by Provider: Jul 24, 2023 Time Seen by Provider: 17:55 Initial Comments PT ARRIVES VIA POV, WANTS WHEEL CHAIR ON ARRIVAL C/O CHEST PAIN THAN BEGAN 10 MINUTES AGO PT WAS SITTING AT A FRIEND'S HOUSE WHEN PAIN BEGAN PAIN IS IN LEFT CHEST, RADIATES TO LEFT NECK, AND DOWN LEFT ARM RATES PAIN 10/10 + SHORTNESS OF BREATH + SWEATS + NAUSEA, NO VOMITING NO SWELLING IN LEGS/FEET OR PAIN IN CALVES NO FEVER OR COUGH OR RECENT ILLNESS PT HAS HISTORY OF CAD WITH PRIOR CABG AND MULTIPLE STENTS--HAD CABG IN 2009 AT [facility], HAS SINCE HAD MULTIPLE STENTS PLACED--BOTH HERE AND AT [facility]. PT DOES NOT KNOW HOW MANY STENTS SHE HAS HAD LAST CATH DONE HERE WAS 08/15/2021 --NO INTERVENTION DONE AT THAT TIME PT HAS HAD A MULTITUDE OF VISITS HERE FOR CHEST PAIN, WELL OTHER COMPLAINTS LAST VISIT HERE WAS 07/06/23 FOR CHEST PAIN. PT WAS SEEN IN ER, TREATED AND RELEASED SHE HAS NOT FOLLOWED UP WITH ANYONE SINCE THAT VISIT. SHE STATES SHE HAS SEEN DR. LOBO IN THE LAST 1-2 MONTHS FOR ROUTINE CARE. SHE HAS NOT SEEN DR. ROBLES RECENTLY. SHE HAS HAD A MULTITUDE OF CT CHEST ANGIOGRAMS, LAST ONE 06/10/23 AND WAS NORMAL AT THAT TIME. PT STATES SHE WAS AT [facility] A FEW MONTHS AGO AND HAD A CARDIAC CATH DONE THERE, AND HAD A STENT PLACED SHE STATES THEY SWITCHED HER FROM PLAVIX TO BRILLINTA AT THAT TIME. SHE HAS TAKEN HER MORNING MEDICATIONS, BUT NOT HER EVENING MEDICATIONS PCP: DR LOBO BODY REPAIRER: DR. ROBLES Allergies and Home Medications Allergies Coded Allergies: Penicillins (Verified Allergy, Unknown, 05/16/21) Sulfa (Sulfonamide Antibiotics) (Verified Allergy, Unknown, 05/16/21) naproxen (Verified Allergy, Unknown, HIVES, NAUSEA--can take ibuprofen, 05/16/21) Patient Home Medication List Home Medication List Reviewed: Yes Albuterol Sulfate (Ventolin Hfa) 1 Puff Puff, 2 PUFF INH Q4H Prescribed by: MAYRA ARELLANO MD on 07/02/22 1707 Aripiprazole (Abilify) 15 Mg Tablet, 7.5 MG PO DAILY, (Reported) Entered as Reported by: SONJA OH on 06/27/21 1036 Aspirin (Aspirin EC) 81 Mg Tablet.dr, 81 MG PO DAILY, (Reported) Entered as Reported by: SONJA OH on 05/24/21 0959 Atorvastatin Calcium (Atorvastatin Calcium) 80 Mg Tablet, 80 MG PO HS Prescribed by: MITCHELL LEBRON on 04/10/22 1423 Clopidogrel Bisulfate (Plavix) 75 Mg Tablet, 75 MG PO DAILY, (Reported) Entered as Reported by: SONJA OH on 05/26/21 1059 Cyclobenzaprine HCl (Cyclobenzaprine HCl) 10 Mg Tablet, 10 MG PO Q8H PRN for SPASMS Prescribed by: HEATH CAMARILLO on 04/22/22 2331 Eszopiclone (Lunesta) 2 Mg Tablet, 2 MG PO HS, (Reported) Entered as Reported by: DOLORES LARIOS on 08/15/21 1555 Ezetimibe (Ezetimibe) 10 Mg Tablet, 10 MG PO HS Prescribed by: MITCHELL LEBRON on 04/10/22 1423 Hydroxyzine HCl (Hydroxyzine HCl) 25 Mg Tablet, 25 MG PO BID PRN for ANXIETY, (Reported) Entered as Reported by: SONJA OH on 06/27/21 1036 Ibuprofen (Advil) 200 Mg Tablet, 200 MG PO Q8H PRN for PAIN-MILD (1-4), (Reported) Entered as Reported by: DOLORES LARIOS on 04/10/22 1409 Isosorbide Mononitrate (Isosorbide Mononitrate ER) 30 Mg Tab.er.24h, 30 MG PO DAILY Prescribed by: MITCHELL LEBRON on 04/10/22 1423 Metformin HCl (Metformin HCl) 500 Mg Tablet, 500 MG PO DAILY, (Reported) Entered as Reported by: DOLORES LARIOS on 08/15/21 1552 Metoprolol Tartrate (Metoprolol Tartrate) 25 Mg Tablet, 12.5 MG PO BID, (Reported) Entered as Reported by: SONJA OH on 05/26/21 1059 Nitroglycerin (Nitroglycerin) 0.3 Mg Tab.subl, 0.3 MG SL UD PRN for CHEST PAIN (ANGINA), (Reported) Entered as Reported by: DOLORES LARIOS on 04/10/22 1407 Ondansetron (Ondansetron Odt) 8 Mg Tab.rapdis, 8 MG SL Q4H PRN for NAUSEA/VOMI TING Prescribed by: MAYRA ARELLANO MD on 07/02/22 1705 Oxycodone HCl/Acetaminophen (Percocet 5-325 mg Tablet) 1 Each Tablet, 1 TAB PO Q6H PRN for PAIN-BREAKTHROUGH Prescribed by: MARGARET HDEZ on 04/30/22 1924 Pantoprazole Sodium (Pantoprazole Sodium) 40 Mg Tablet.dr, 40 MG PO BID Prescribed by: RAINE HERNANDEZ on 06/04/22 1048 Prednisone (Prednisone) 50 Mg Tab, 50 MG PO DAILY Prescribed by: MAYRA ARELLANO MD on 07/02/22 1707 Sertraline HCl (Sertraline HCl) 100 Mg Tablet, 100 MG PO HS, (Reported) Entered as Reported by: SONJA OH on 06/27/21 1036 Varenicline Tartrate (Varenicline) 0.5 Mg (11)-1 Mg (42) Tab.ds.pk, 1 TAB PO UD, (Reported) Entered as Reported by: DOLORES LARIOS on 04/10/22 1406 Review of Systems Review of Systems Constitutional: see HPI, diaphoresis EENTM: No Symptoms Reported Respiratory: See HPI; Denies Cough; Shortness of Air Cardiovascular: See HPI, Chest Pain; Denies Edema, Denies Irregular Heart Rate, Denies Lightheadedness, Denies Palpitations, Denies Syncope Gastrointestinal: See HPI; Denies Abdominal Pain; Nausea; Denies Vomiting Genitourinary: No Symptoms Reported Musculoskeletal: see HPI Skin: no symptoms reported Psychiatric/Neurological: No Symptoms Reported Endocrine: No Symptoms Reported Hematologic/Lymphatic: No Symptoms Reported Past Elxqqbm-[id number]-[id number] Hx Patient Social History Tobacco Use?: Yes Tobacco type used: Cigarettes Smoking Status: Current Everyday Smoker Substance use?: Yes Substance type: Marijuana Alcohol Use?: No Immunizations Up To Date Tetanus Booster (TDap): More than 5yrs First/Initial COVID19 Vaccinat: not vaccinated Second COVID19 Vaccination Mark: not vaccinated Third COVID19 Vaccination Date: not vaccinated Seasonal Allergies Seasonal Allergies: No Past Medical History Surgery/Hospitalization HX: CABG, VEIN HARVEST, T/A, CORNARY STENT, CHOLECYSTECTOMY, TRACH/REVERSAL, ASTHMA, CAD, HTN, OR, BOWSER, SEIZURE, HERPES, CERVICAL CA, FABRICE FUNDIPLICATION, ANXIETY/DEPRESSION, SUICIDE ATTEMPTS. Surgeries: Yes Abdominal, Adenoidectomy, Cardiac, CABG, Coronary Stent, Ear Surgery, Gallbladder, Orthopedic, Tonsillectomy, Tracheostomy Respiratory: Yes (O2 AT HS; TRACH POST CABG-LATER REMOVED. 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, Menopausal Sexually Transmitted Disease: Yes (HERPES) Genitourinary: No Gastrointestinal: Yes (S/P FABRICE FUNDOPLICATION) Gastroesophageal Reflux, Esophagitis, Hiatal Hernia, Gall Bladder Disease Musculoskeletal: Yes Arthritis Endocrine: Yes (MORBID OBESITYL; INSULIN + ORAL MEDS) Diabetes, Insulin dep, Hypothyroidsim HEENT: Yes Chronic Ear Infection Hearing Impairment: Hard of Hearing Cancer: Yes Cervical Did You Recieve Any Treatments: Yes What Type of Treatment Did You: Surgical Intervention Psychosocial: Yes Sleep Difficulties, Anxiety, Suicide Attempts, Depression Integumentary: No Blood Disorders: No Adverse Reaction/Blood Tranf: No Family Medical History Heart Disease SEE OLD CHARTS FOR DETAILS SOCIAL HISTORY: -SMOKES 1 PPD -ETOH DENIES USE -DRUGS--SMOKES MARIJUANA DAILY ECHOCARDIOGRAM 08/15/21--EF 60-65% CARDIAC CATH 08/15/2021: IMPRESSION: 1. Normal central aortic pressure with elevated left ventricular end-diastolic pressure. 2. Patent stent in the mid left anterior descending coronary artery. 3. Total occlusion of the mid right coronary artery within previously placed stents. This is known to be a chronic total occlusion. 4. The left internal mammary artery graft to left anterior descending coronary artery is known to be atretic and was not studied during this procedure. 5. Patent saphenous vein graft to the obtuse marginal branch with a patent stent in the ostium. 6. The patient is known to have normal left ventricular systolic function with an estimated ejection fraction of 60-65% by echocardiogram performed earlier today. 7. The patient may be having angina from small vessel disease. Physical Exam Vital Signs Vital Signs - First Documented 07/24/23 17:56 Temp 37.4 Pulse 95 Resp 16 B/P (MAP) 160/79 (106) Pulse Ox 99 O2 Delivery Room Air Capillary Refill : Less Than 3 Seconds Height, Weight, BMI Height: 5'8.00" Weight: 189lbs. 0.0oz. [id number]; 33.00 BMI Method:Stated General Appearance: No Apparent Distress, WD/WN, Anxious, Obese, Other (REEKS OF CIGARETTES, CONSTANT BODY AND MOUTH MOVEMENTS, CONSTANT LIP LICKING. ) HEENT: PERRL/EOMI, Other (EDENTULOUS) Neck: Normal Inspection; No Carotid Bruit, No JVD Respiratory: Chest Non Tender, Normal Breath Sounds, No Accessory Muscle Use, No Respiratory Distress Cardiovascular: Regular Rate, Rhythm, No Edema, No JVD, No Murmur, Normal Peripheral Pulses Gastrointestinal: Normal Bowel Sounds, Non Tender, Soft Extremity: Normal Capillary Refill, Normal Inspection, Normal Range of Motion, Non Tender, No Calf Tenderness, No Pedal Edema Neurologic/Psychiatric: Alert, Oriented x3, No Motor/Sensory Deficits, medication coordinator II- XII Norm as Tested Skin: Normal Color, Warm/Dry Progress/Results/Core Measures Results/Orders Lab Results Laboratory Tests Test 07/24/23 18:00 07/24/23 19:00 Range/Units White Blood Count 7.0 4.3-11.0 10^3/uL Red Blood Count 4.55 3.80-5.11 10^6/uL Hemoglobin 14.1 11.5-16.0 g/dL Hematocrit 42 35-52 % Mean Corpuscular Volume 92 80-99 fL Mean Corpuscular Hemoglobin 31 25-34 pg Mean Corpuscular Hemoglobin Concent 34 32-36 g/dL Red Cell Distribution Width 13.9 10.0-14.5 % Platelet Count 246 130-400 10^3/uL Mean Platelet Volume 10.4 9.0-12.2 fL Immature Granulocyte % (Auto) 0 % Neutrophils (%) (Auto) 58 42-75 % Lymphocytes (%) (Auto) 32 12-44 % Monocytes (%) (Auto) 5 0-12 % Eosinophils (%) (Auto) 3 0-10 % Basophils (%) (Auto) 1 0-10 % Neutrophils # (Auto) 4.1 1.8-7.8 10^3/uL Lymphocytes # (Auto) 2.2 1.0-4.0 10^3/uL Monocytes # (Auto) 0.4 0.0-1.0 10^3/uL Eosinophils # (Auto) 0.2 0.0-0.3 10^3/uL Basophils # (Auto) 0.0 0.0-0.1 10^3/uL Immature Granulocyte # (Auto) 0.0 0.0-0.1 10^3/uL Prothrombin Time 12.2 12.2-14.7 SEC INR Comment 0.9 0.8-1.4 Activated Partial Thromboplast Time 28 24-35 SEC D-Dimer 0.65 H 0.00-0.49 UG/ML Sodium Level 137 135-145 MMOL/L Potassium Level 4.1 3.6-5.0 MMOL/L Chloride Level 107 98-107 MMOL/L Carbon Dioxide Level 23 21-32 MMOL/L Anion Gap 7 5-14 MMOL/L Blood Urea Nitrogen 13 7-18 MG/DL Creatinine 1.00 0.60-1.30 MG/DL Estimat Glomerular Filtration Rate 69 BUN/Creatinine Ratio 13 Glucose Level 231 H 70-105 MG/DL Calcium Level 8.9 8.5-10.1 MG/DL Corrected Calcium 9.0 8.5-10.1 MG/DL Magnesium Level 2.0 1.6-2.4 MG/DL Total Bilirubin 0.5 0.1-1.0 MG/DL Aspartate Amino Transf (AST/SGOT) 13 5-34 U/L Alanine Aminotransferase (ALT/SGPT) 16 0-55 U/L Alkaline Phosphatase 111 40-136 U/L Total Creatine Kinase 117 29-168 U/L Creatine Kinase MB 2.0 <6.6 NG/ML Myoglobin 27.4 10.0-92.0 NG/ML Troponin I < 0.028 <0.028 NG/ML B-Type Natriuretic Peptide 773.4 H <100.0 PG/ML Total Protein 7.2 6.4-8.2 GM/DL Albumin 3.9 3.2-4.5 GM/DL Amylase Level 63 25-125 U/L Lipase 44 8-78 U/L Serum Alcohol < 10 <10 MG/DL Urine Color YELLOW Urine Clarity CLOUDY Urine pH 7.0 5-9 Urine Specific Chamberlain 1.025 H 1.016-1.022 Urine Protein TRACE H NEGATIVE Urine Glucose (UA) 2+ H NEGATIVE Urine Ketones NEGATIVE NEGATIVE Urine Nitrite POSITIVE H NEGATIVE Urine Bilirubin NEGATIVE NEGATIVE Urine Urobilinogen 0.2 < = 1.0 MG/DL Urine Leukocyte Esterase 1+ H NEGATIVE Urine RBC (Auto) TRACE H NEGATIVE Urine RBC 5-10 H /HPF Urine WBC 10-25 H /HPF Urine Squamous Epithelial Cells 0-2 /HPF Urine Crystals NONE /LPF Urine Bacteria LARGE H /HPF Urine Casts NONE /LPF Urine Mucus NEGATIVE /LPF Urine Culture Indicated YES Urine Opiates Screen POSITIVE H NEGATIVE Urine Oxycodone Screen NEGATIVE NEGATIVE Urine Methadone Screen NEGATIVE NEGATIVE Urine Barbiturates Screen NEGATIVE NEGATIVE Ur Tricyclic Antidepressants Screen NEGATIVE NEGATIVE Urine Phencyclidine Screen NEGATIVE NEGATIVE Urine Amphetamines Screen NEGATIVE NEGATIVE Urine Methamphetamines Screen NEGATIVE NEGATIVE Urine Benzodiazepines Screen NEGATIVE NEGATIVE Urine Cocaine Screen NEGATIVE NEGATIVE Urine Cannabinoids Screen NEGATIVE NEGATIVE My Orders Orders - MARQUISE,HEATH K DO Cbc And Automated Diff (07/24/23 17:57) Magnesium (07/24/23 17:57) Chest 1 View, Ap/Pa Only (07/24/23 17:57) Ekg Tracing (07/24/23 17:57) Comprehensive Metabolic Panel (07/24/23 17:57) Myoglobin Serum (07/24/23 17:57) Protime With Inr (07/24/23 17:57) Partial Thromboplastin Time (07/24/23 17:57) O2 (07/24/23 17:57) Monitor-Rhythm Ecg Trace Only (07/24/23 17:57) Ed Iv/Invasive Line Start (07/24/23 17:57) Creatine Kinase (07/24/23 17:57) Creatine Kinase Mb (07/24/23 17:57) Lipase (07/24/23 17:57) Amylase (07/24/23 17:57) Bnp Kt (07/24/23 17:57) Fibrin Degradation Products (07/24/23 17:57) Troponin I Kt (07/24/23 17:57) Alcohol (07/24/23 17:57) Drug Screen Stat (Urine) (07/24/23 17:57) Ua Culture If Indicated (07/24/23 17:57) Nitroglycerin 0.4 Mg Btl 25's (Nitroglyc (07/24/23 18:00) Aspirin Chewable Tablet (Aspirin Chewabl (07/24/23 18:00) Nitroglycerin Ointment (Nitroglycerin (07/24/23 18:15) Morphine Injection (Morphine Injection (07/24/23 18:45) Ondansetron Injection (Ondansetron Inj (07/24/23 18:45) Pantoprazole Injection (Pantoprazole Inj (07/24/23 18:45) Urine Culture (07/24/23 19:00) Ceftriaxone Iv/Im (Ceftriaxone Iv/Im) (07/24/23 19:45) Enoxaparin Injection (Enoxaparin Injecti (07/24/23 20:15) Morphine Injection (Morphine Injection (07/24/23 20:15) Ed Admission (Communication) (07/24/23 20:45) Medications Given in ED Current Medications Medications Dose Ordered Sig/Sara Route Start Time Stop Time Status Last Admin Dose Admin Aspirin 324 mg ONCE ONCE PO 07/24/23 18:00 07/24/23 18:01 DC 07/24/23 18:11 324 MG Ceftriaxone Sodium 1000 mg/ Sodium Chloride 50 ml @ 100 mls/hr ONCE ONCE IV 07/24/23 19:45 07/24/23 20:14 DC 07/24/23 19:53 100 MLS/HR Enoxaparin Sodium 100 mg ONCE ONCE SC 07/24/23 20:15 07/24/23 20:16 DC 07/24/23 20:14 100 MG Morphine Sulfate 4 mg ONCE ONCE IVP 07/24/23 18:45 07/24/23 18:46 DC 07/24/23 18:54 4 MG Morphine Sulfate 4 mg ONCE ONCE IVP 07/24/23 20:15 07/24/23 20:16 DC 07/24/23 20:14 4 MG Nitroglycerin 1 inch ONCE ONCE TOP 07/24/23 18:15 07/24/23 18:16 DC 07/24/23 18:11 1 INCH Ondansetron HCl 4 mg ONCE ONCE IVP 07/24/23 18:45 07/24/23 18:46 DC 07/24/23 18:53 4 MG Pantoprazole 40 mg ONCE ONCE IV 07/24/23 18:45 07/24/23 18:46 DC 07/24/23 18:53 40 MG Vital Signs/I&O 07/24/23 07/24/23 17:56 20:52 Temp 37.4 Pulse 95 86 Resp 16 18 B/P (MAP) 160/79 (106) 124/73 Pulse Ox 99 96 O2 Delivery Room Air Room Air Blood Pressure Mean: 106 Progress Progress Note : Progress Note VITALS ON ARRIVAL: TEMP 37.4=99.4, HR 95, RR 16, BP 160/79, O2 SAT 99% ON ROOM AIR GIVEN: -ASPIRIN -NITROPASTE--NO RELIEF -MORPHINE--PAIN DOWN TO 8/10 -LOVENOX -ZOFRAN -PROTONIX -ROCEPHIN FOR UTI LABS: -CBC NORMAL -CMP WITH GLUCOSE 231, OTHERWISE NORMAL -AMYLASE/LIPASE NORMAL -MG NORMAL -TROPONIN NEGATIVE -BNP 773 -PT/PTT/INR NORMAL -D-DIMER 0.63 -UA 2+ GLUCOSE, + NITRITES, 1+LEUKOCYTES, 10-25 WBC, LARGE BACTERIA -ETOH NEGATIVE -UDS + OPIATES EKG IS UNREMARKABLE CXR IS UNREMARKABLE VITALS STABLE NO DETERIORATION IN PT'S CONDITION DURING ER STAY DISCUSSED TEST RESULTS, NEED FOR ADMIT AND PT IS AGREEABLE TO PLAN REVIEWED PRIOR RECORDS, MULTITUDE OF VISITS, AND ADMITS EMS VERY FAMILIAR WITH PT, SHE CALLS THEM MULTIPLE TIMES, PT GOES TO BOTH [facility] AND HERE Initial ECG Impression Date: Jul 24, 2023 Initial ECG Impression Time: 18:02 Initial ECG Rate: 91 Initial ECG Rhythm: Normal Sinus Initial ECG Intervals MI 154 QRS 115 QT 374 QTC 461 Initial ECG Impression: Nonspecific Changes Initial ECG Comparisson: Unchanged Comment INTERPRETED BY ME Diagnostic Imaging Comments CXR--PER RADIOLOGIST REPORT AT 1847 FINDINGS: Postsurgical changes of a CABG are again identified. The cardiac silhouette is within normal limits in size. No significant pulmonary vascular congestion. Retrocardiac density and gas lucency is present, consistent with a small hiatal hernia. Vascular stent is again noted overlying the medial left upper chest, stable. The lungs are clear of focal pulmonary opacity. No significant pleural effusion. No pneumothorax. No acute osseous abnormality. IMPRESSION: No acute cardiopulmonary abnormality with stable postsurgical changes and small hiatal hernia present. Reviewed: Reviewed by Me Departure Communication (Admissions) 1944--CALLED DR. SANTIAGO, LEFT MESSAGE ON CELL 2004--DR. SANTIAGO CALLED, SHE WILL CALL BACK 2007--CALLED DR. ROBLES, MESSAGE LEFT 2019--DR. SANTIAGO CALLED BACK, ACCEPTS PT FOR ADMIT. SHE WILL DO ADMIT ORDERS 2046--SPOKE WITH DR. ROBLES, BODY REPAIRER, RECOMMENDATIONS NOTED. Impression Primary Impression: Chest pain Additional Impressions: CAD WITH PRIOR CABG AND MULTIPLE STENTS IDDM (insulin dependent diabetes mellitus) HTN (hypertension) Smoker UTI (urinary tract infection) Disposition: ADMITTED INPATIENT Condition: Stable Admissions Decision to Admit Reason: Admit from ER (General) Decision to Admit/Date: Jul 24, 2023 Time/Decision to Admit Time: 20:20 Departure-Patient Inst. Referrals: EDWAR LOBO DO (PCP/Family) Primary Care Physician HEATH CAMARILLO DO Jul 24, 2023 18:16
[2023-07-24 18:19] LABS: INR 0.9 (0.8-1.4); PROTHROMBIN TIME PATIENT 12.2 SEC (12.2-14.7)
[2023-07-24 18:21] LABS: ALBUMIN 3.9 GM/DL (3.2-4.5)
[2023-07-24 18:22] LABS: CHLORIDE 107 MMOL/L (98-107); POTASSIUM 4.1 MMOL/L (3.6-5.0); SODIUM 137 MMOL/L (135-145)
[2023-07-24 18:23] LABS: CALCIUM 8.9 MG/DL (8.5-10.1); FIBRIN DEGRADATION PRODUCTS 0.65 UG/ML (0.00-0.49)
[2023-07-24 18:24] LABS: AMYLASE 63 U/L (25-125); GLUCOSE 231 MG/DL (70-105); TOTAL PROTEIN 7.2 GM/DL (6.4-8.2)
[2023-07-24 18:25] LABS: CARBON DIOXIDE 23 MMOL/L (21-32)
[2023-07-24 18:26] LABS: BILIRUBIN,TOTAL 0.5 MG/DL (0.1-1.0)
[2023-07-24 18:28] LABS: ALKALINE PHOSPHATASE 111 U/L (40-136); GFR ESTIMATED 69
[2023-07-24 18:29] LABS: BUN/CREATININE RATIO 13
[2023-07-24 18:31] LABS: ALANINE AMINOTRANSFERASE 16 U/L (0-55)
[2023-07-24 18:32] LABS: CREATINE KINASE 117 U/L (29-168); LIPASE 44 U/L (8-78)
--- NOTE | 2023-07-24 18:43 | Diagnostic Imaging Report ---
INDICATION: Chest pain COMPARISON: 07/05/2023 TECHNIQUE: Single radiograph of the chest dated 07/24/2023. FINDINGS: Postsurgical changes of a CABG are again identified. The cardiac silhouette is within normal limits in size. No significant pulmonary vascular congestion. Retrocardiac density and gas lucency is present, consistent with a small hiatal hernia. Vascular stent is again noted overlying the medial left upper chest, stable. The lungs are clear of focal pulmonary opacity. No significant pleural effusion. No pneumothorax. No acute osseous abnormality. IMPRESSION: No acute cardiopulmonary abnormality with stable postsurgical changes and small hiatal hernia present. Dictated by: Dictated on workstation # [id number]
[2023-07-24] MEDS ORDERED: ONDANSETRON INJECTION 4 MG/2 ML (SDV) IVP ONE (18:45)
[2023-07-24] MEDS ORDERED: PANTOPRAZOLE INJECTION 40 MG VIAL IV ONE (18:45)
[2023-07-24] MEDS ORDERED: morphine INJ 4 MG/ML 1 ML (VIAL/SYRINGE) IVP ONE ×2 (18:45→20:15)
[2023-07-24 19:34] LABS: AMPHETAMINE SCREEN, URINE NEGATIVE (NEGATIVE); BACTERIA,URINE LARGE /HPF; BARBITURATE SCREEN URINE NEGATIVE (NEGATIVE); BILIRUBIN,URINE NEGATIVE (NEGATIVE); CANNABINOID SCREEN, URINE NEGATIVE (NEGATIVE); CLARITY,URINE CLOUDY; COCAINE SCREEN URINE NEGATIVE (NEGATIVE); COLOR,URINE YELLOW; GLUCOSE, URINE (UA) 2+ (NEGATIVE); KETONES,URINE NEGATIVE (NEGATIVE); LEUKOCYTE ESTERASE ,URINE 1+ (NEGATIVE); METHADONE STAT NEGATIVE (NEGATIVE); NITRITE,URINE POSITIVE (NEGATIVE); OPIATE SCREEN URINE POSITIVE (NEGATIVE); OXYCODONE STAT NEGATIVE (NEGATIVE); PROTEIN,URINE TRACE (NEGATIVE); SQUAMOUS EPITHELIAL CELL,UR 0-2 /HPF; TRICYCLIC ANTIDEPRESSANTS SCRE NEGATIVE (NEGATIVE)
[2023-07-24] MEDS ORDERED: cefTRIAXone IV/IM 1,000 MG in NS (IVPB) 50 ML 50 ML IV ONE (19:45)
[2023-07-24] MEDS ORDERED: ENOXAPARIN 100 MG/1 ML SYRINGE SC ONE (20:15)
[2023-07-24] MEDS ORDERED: ANTACID SUSPENSION 30 ML UDC PO PRN (22:30)
[2023-07-24] MEDS ORDERED: MILK OF MAGNESIA 400 MG/5 ML 30 ML UDC PO PRN (22:30)
[2023-07-24] MEDS ORDERED: ACETAMINOPHEN 325 MG TABLET PO PRN (22:30)
[2023-07-24] MEDS ORDERED: BISACODYL 10 MG SUPPOSITORY PR PRN (22:30)
[2023-07-24] MEDS ORDERED: PATIENT MAY USE OWN MEDS, ALL PO SCH (22:30)
[2023-07-24] MEDS ORDERED: diphenhydrAMINE 25 MG TABLET PO PRN (22:30)
[2023-07-24] MEDS ORDERED: LACTULOSE SYRUP 10GM/15ML 30ML UDC PO PRN (22:30)
[2023-07-24] MEDS ORDERED: CALCIUM CARBONATE 500 MG CHEW TABLET PO PRN (22:30)
[2023-07-24] MEDS ORDERED: hydrALAZINE INJECTION 20 MG/ML VIAL IV PRN (22:30)
[2023-07-24] MEDS ORDERED: LORazepam 0.5 MG TABLET PO PRN (22:30)
[2023-07-24] MEDS ORDERED: diphenhydrAMINE INJ 50 MG/ML VIAL IVP PRN (22:30)
[2023-07-24] MEDS ORDERED: ONDANSETRON 4 MG ORAL DISSOLVE TABLET PO PRN (22:30)
[2023-07-24] MEDS ORDERED: MELATONIN 3 MG TABLET PO PRN (22:30)
[2023-07-24] MEDS ORDERED: RT-ALBUTEROL SULF 2.5 MG/3 ML PRE-MIX VIAL INH PRN (23:00)
[2023-07-24] MEDS: HYDROmorphone INJECTION 2 MG/ML VIAL IV PRN (23:38)
[2023-07-25] VITALS (12 sets, daily range): BP systolic 76–132; BP diastolic 46–78
[2023-07-25] MEDS: oxyCODONE IMMEDIATE RELEASE 5 MG TABLET PO PRN ×4 (02:01→21:31)
[2023-07-25] MEDS: ONDANSETRON INJECTION 4 MG/2 ML (SDV) IV PRN ×2 (04:36→08:35)
[2023-07-25] MEDS: HYDROmorphone INJECTION 2 MG/ML VIAL IV PRN ×3 (05:04→18:33)
[2023-07-25 05:18] LABS: BASOPHILS % (AUTO) 1 % (0-10); EOSINOPHILS # (AUTO) 0.3 10^3/uL (0.0-0.3); EOSINOPHILS % (AUTO) 4 % (0-10); HEMATOCRIT 35 % (35-52); HEMOGLOBIN 11.4 g/dL (11.5-16.0); LYMPHOCYTES # (AUTO) 2.2 10^3/uL (1.0-4.0); LYMPHOCYTES % (AUTO) 37 % (12-44); MEAN CORPUSCULAR HEMOGLOBIN 31 pg (25-34); MEAN CORPUSCULAR HGB CONC 33 g/dL (32-36); MEAN CORPUSCULAR VOLUME 93 fL (80-99); MEAN PLATELET VOLUME 11.1 fL (9.0-12.2); MONOCYTES # (AUTO) 0.5 10^3/uL (0.0-1.0); MONOCYTES % (AUTO) 9 % (0-12); NEUTROPHILS # (AUTO) 2.8 10^3/uL (1.8-7.8); NEUTROPHILS % (AUTO) 49 % (42-75); PLATELET COUNT 210 10^3/uL (130-400); WHITE BLOOD COUNT 5.8 10^3/uL (4.3-11.0)
[2023-07-25 05:37] LABS: CHLORIDE 107 MMOL/L (98-107); SODIUM 137 MMOL/L (135-145)
[2023-07-25 05:39] LABS: CALCIUM 8.1 MG/DL (8.5-10.1); TRIGLYCERIDES 245 MG/DL (<150); VLDL CHOLESTEROL 49 MG/DL (5-40)
[2023-07-25 05:40] LABS: GLUCOSE 207 MG/DL (70-105); TOTAL PROTEIN 5.6 GM/DL (6.4-8.2)
[2023-07-25 05:41] LABS: CARBON DIOXIDE 24 MMOL/L (21-32)
[2023-07-25 05:42] LABS: BILIRUBIN,TOTAL 0.4 MG/DL (0.1-1.0)
[2023-07-25 05:44] LABS: ALKALINE PHOSPHATASE 96 U/L (40-136); CHOLESTEROL 177 MG/DL (< 200); CREATININE SERUM 0.97 MG/DL (0.60-1.30); GFR ESTIMATED 71
[2023-07-25 05:45] LABS: BUN/CREATININE RATIO 12
[2023-07-25 05:46] LABS: HDL CHOLESTEROL 35 MG/DL (40-60)
[2023-07-25 05:47] LABS: ALANINE AMINOTRANSFERASE 12 U/L (0-55)
[2023-07-25] MEDS: inSUlin ASPART 1 UNIT/0.01 ML (PER UNIT) SC SCH ×4 (06:31→21:22)
[2023-07-25] MEDS ORDERED: FLU QUADRIvalent (6 months+) 60 mcg/0.5 ml 2023-2024 (FLUARIX) IM ONE (07:00)
[2023-07-25] MEDS: ASPIRIN enteric coated 81MG TABLET PO SCH (08:24)
[2023-07-25] MEDS: ENOXAPARIN 120 MG/0.8 ML SYRINGE SQ SCH ×2 (08:25→21:21)
--- NOTE | 2023-07-25 08:43 | History & Physical ---
PHUONG BASURTO 07/25/23 0843: History of Present Illness History of Present Illness Reason for visit/HPI Pt is a 48 y/o F who presented to the ER yesterday w/ CP for 10 min while at a friends house. Reports that she had sudden onset dypsnea, disphoresis, sweating. AxOx4. Notes pain in L chest which radiates to left neck and down left arm. 10/10 pain. Notes nausea but no vomiting. Hx of CAD with prior CABG and multiple stents. Had CABG in 2009 at [facility], has since had multiple stents placed, does not know how many. Last cath done here was 08/15/2021 w/o any intervention done at that time. Last visit here was 07/06/23 for chest pain. Has had multiple chest angiograms, last one 06/10/23 which was normal at that time. Was at [facility] a few months ago for a cath w/ stent placement, switched from plavix to brillinta at that time. Normally sees Dr. Aguilar. Echo 08/15/21- EF 60-65%. Other pmhx sig for COPD, seizure disorder, cervical cancer, morbid obesity (BMI 33), diabetes insulin dep. Current every day smoker and uses marijuana. In ER, troponin was negative, BNP was 773, D-dimer elevated at 0.65, UA with +nitrites, 1+ leuk, large bacteria- culture grew E.coli, gievn rocephin in ER. EKG and CXR was unremarkable. Today, pt reports continued CP rating it an 8/10, intermittent sharp pain that radiates L neck and L arm. She notes that she has been very nauseous. Reports swelling in hands that has improved; they were originally so swollen she could not put a ring on her finger. Notes SOB, orthopnea, and gasping for air at night. Unsure if ever dx with REINA and does not currently use a CPAP. Date of Admission Jul 24, 2023 at 20:54 Date Seen by a Provider: Jul 25, 2023 Time Seen by a Provider: 08:43 I consulted on this patient on 07/25/23 08:42 Attending Physician Willem Chamorro DO Admitting Physician Admitting Physician: Luz Marina Santiago DO Attending Physician: Luz Marina Santiago DO Consult Allergies and Home Medications Allergies Coded Allergies: Penicillins (Verified Allergy, Unknown, 05/16/21) Sulfa (Sulfonamide Antibiotics) (Verified Allergy, Unknown, 05/16/21) naproxen (Verified Allergy, Unknown, HIVES, NAUSEA--can take ibuprofen, ) Patient Home Medication List Home Medication List Reviewed: Yes Eszopiclone (Eszopiclone) 2 Mg Tablet, 2 MG PO HS PRN for SLEEP, (Reported) Entered as Reported by: SONJA OH on 07/25/231615 Last Action: Reviewed Ibuprofen (Ibuprofen) 200 Mg Tablet, 400 MG PO Q6H PRN for PAIN-MILD (1-4), (Reported) Entered as Reported by: SONJA OH on 07/25/231615 Last Action: Reviewed Insulin Lispro (Insulin Lispro Kwikpen U-100) 100 Unit/Ml Insuln.pen, 3 UNITS SC AC, (Reported) Entered as Reported by: SONJA OH on 07/25/231615 Last Action: Reviewed Discontinued Medications Albuterol Sulfate (Ventolin Hfa) 1 Puff Puff, 2 PUFF INH Q4H Discontinued Reason: No Longer Taking Prescribed by: MAYRA ARELLANO MD on 07/02/22 1707 Last Action: Discontinued Aripiprazole (Abilify) 15 Mg Tablet, 7.5 MG PO DAILY, (Reported) Discontinued Reason: No Longer Taking Entered as Reported by: SONJA OH on 06/27/21 1036 Last Action: Discontinued Aspirin (Aspirin EC) 81 Mg Tablet.dr, 81 MG PO DAILY, (Reported) Discontinued Reason: No Longer Taking Entered as Reported by: SONJA OH on 05/24/21 0959 Last Action: Discontinued Atorvastatin Calcium (Atorvastatin Calcium) 80 Mg Tablet, 80 MG PO HS Discontinued Reason: No Longer Taking Prescribed by: MITCHELL LEBRON on 04/10/22 1423 Last Action: Discontinued Clopidogrel Bisulfate (Plavix) 75 Mg Tablet, 75 MG PO DAILY, (Reported) Discontinued Reason: No Longer Taking Entered as Reported by: SONJA OH on 05/26/21 1059 Last Action: Discontinued Cyclobenzaprine HCl (Cyclobenzaprine HCl) 10 Mg Tablet, 10 MG PO Q8H PRN for SPASMS Discontinued Reason: No Longer Taking Prescribed by: HEATH CAMARILLO on 04/22/22 2331 Last Action: Discontinued Eszopiclone (Lunesta) 2 Mg Tablet, 2 MG PO HS, (Reported) Discontinued Reason: No Longer Taking Entered as Reported by: DOLORES LARIOS on 08/15/21 1555 Last Action: Discontinued Ezetimibe (Ezetimibe) 10 Mg Tablet, 10 MG PO HS Discontinued Reason: No Longer Taking Prescribed by: MITCHELL LEBRON on 04/10/22 1423 Last Action: Discontinued Hydroxyzine HCl (Hydroxyzine HCl) 25 Mg Tablet, 25 MG PO BID PRN for ANXIETY, (Reported) Discontinued Reason: No Longer Taking Entered as Reported by: SONJA OH on 06/27/21 1036 Last Action: Discontinued Ibuprofen (Advil) 200 Mg Tablet, 200 MG PO Q8H PRN for PAIN-MILD (1-4), (Reported) Discontinued Reason: No Longer Taking Entered as Reported by: DOLORES LARIOS on 04/10/22 1409 Last Action: Discontinued Isosorbide Mononitrate (Isosorbide Mononitrate ER) 30 Mg Tab.er.24h, 30 MG PO DAILY Discontinued Reason: No Longer Taking Prescribed by: MITCHELL LEBRON on 04/10/22 1423 Last Action: Discontinued Metformin HCl (Metformin HCl) 500 Mg Tablet, 500 MG PO DAILY, (Reported) Discontinued Reason: No Longer Taking Entered as Reported by: DOLORES LARIOS on 08/15/21 1552 Last Action: Discontinued Metoprolol Tartrate (Metoprolol Tartrate) 25 Mg Tablet, 12.5 MG PO BID, (Reported) Discontinued Reason: No Longer Taking Entered as Reported by: SONJA OH on 05/26/21 1059 Last Action: Discontinued Nitroglycerin (Nitroglycerin) 0.3 Mg Tab.subl, 0.3 MG SL UD PRN for CHEST PAIN (ANGINA), (Reported) Discontinued Reason: No Longer Taking Entered as Reported by: DOLORES LARIOS on 04/10/22 1407 Last Action: Discontinued Ondansetron (Ondansetron Odt) 8 Mg Tab.rapdis, 8 MG SL Q4H PRN for NAUSEA/VOMITING Discontinued Reason: No Longer Taking Prescribed by: MAYRA ARELLANO MD on 07/02/22 1705 Last Action: Discontinued Oxycodone HCl/Acetaminophen (Percocet 5-325 mg Tablet) 1 Each Tablet, 1 TAB PO Q6H PRN for PAIN-BREAKTHROUGH Discontinued Reason: No Longer Taking Prescribed by: MARGARET HDEZ on 04/30/22 192 Last Action: Discontinued Pantoprazole Sodium (Pantoprazole Sodium) 40 Mg Tablet.dr, 40 MG PO BID Discontinued Reason: No Longer Taking Prescribed by: RAINE HERNANDEZ on 06/04/22 1048 Last Action: Discontinued Prednisone (Prednisone) 50 Mg Tab, 50 MG PO DAILY Discontinued Reason: No Longer Taking Prescribed by: MAYRA ARELLANO MD on 07/02/22 1707 Last Action: Discontinued Sertraline HCl (Sertraline HCl) 100 Mg Tablet, 100 MG PO HS, (Reported) Discontinued Reason: No Longer Taking Entered as Reported by: SONJA OH on 06/27/21 1036 Last Action: Discontinued Varenicline Tartrate (Varenicline) 0.5 Mg (11)-1 Mg (42) Tab.ds.pk, 1 TAB PO UD, (Reported) Discontinued Reason: No Longer Taking Entered as Reported by: DOLORES LARIOS on 04/10/22 1406 Last Action: Discontinued Past Lcgifvj-Wrixwa-Zmavaa Hx Patient Social History Tobacco Use?: Yes Tobacco type used: Cigarettes Smoking Status: Current Everyday Smoker Use of E-Cig and/or Vaping dev: No Substance use?: No Substance type: Marijuana Alcohol Use?: No Pt feels they are or have been: No Immunizations Up To Date Date of Influenza Vaccine: May 09, 2021 First/Initial COVID19 Vaccinat: not vaccinated Second COVID19 Vaccination Mark: not vaccinated Tetanus Booster (TDap): Unknown Date of Pneumonia Vaccine: Jun 20, 2013 Seasonal Allergies Seasonal Allergies: No Current Status status: No status: No Advance Directives: No Communicates: Verbally Primary Language: Surinamese Preferred Spoken Language: Surinamese Is interpretation needed?: No Sensory deficits: Vision impairment Implanted or Applied Medical D: Stents Past Medical History Surgeries: Abdominal, Adenoidectomy, Cardiac, CABG, Coronary Stent, Ear Surgery, Gallbladder, Orthopedic, Tonsillectomy, Tracheostomy Asthma, Chronic Bronchitis, COPD Coronary Artery Disease, Deep Vein Thrombosis, Heart Attack, High Cholesterol, Hypertension Headaches /Migraines, Seizure Disorder [employer]IST History: Hysterectomy, Menopausal Sexually Transmitted Disease: Yes (HERPES) Gastroesophageal Reflux, Esophagitis, Hiatal Hernia, Gall Bladder Disease Arthritis Diabetes, Insulin dep, Hypothyroidsim Chronic Ear Infection Hearing Impairment: Hard of Hearing Cervical Did You Recieve Any Treatments: Yes What Type of Treatment Did You: Surgical Intervention Sleep Difficulties, Anxiety, Suicide Attempts, Depression Blood Disorders: No Adverse Reaction/Blood Tranf: No See Problem List Family Medical History Heart Disease SEE OLD CHARTS FOR DETAILS SOCIAL HISTORY: -SMOKES 1 PPD -ETOH DENIES USE -DRUGS--SMOKES MARIJUANA DAILY ECHOCARDIOGRAM 08/15/21--EF 60-65% CARDIAC CATH 08/15/2021: IMPRESSION: 1. Normal central aortic pressure with elevated left ventricular end-diastolic pressure. 2. Patent stent in the mid left anterior descending coronary artery. 3. Total occlusion of the mid right coronary artery within previously placed stents. This is known to be a chronic total occlusion. 4. The left internal mammary artery graft to left anterior descending coronary artery is known to be atretic and was not studied during this procedure. 5. Patent saphenous vein graft to the obtuse marginal branch with a patent stent in the ostium. 6. The patient is known to have normal left ventricular systolic function with an estimated ejection fraction of 60-65% by echocardiogram performed earlier today. 7. The patient may be having angina from small vessel disease. Review of Systems Constitutional: No fever; malaise EENTM: hoarseness; No vision loss Respiratory: No cough; dyspnea on exertion, orthopnea, short of breath Cardiovascular: chest pain; No palpitations Gastrointestinal: No abdominal pain, No hematemesis, No heartburn; nausea; No vomiting Genitourinary: decreased output, discharge, dysuria Musculoskeletal: back pain; No gout Skin: No change in color, No pruritus, No rash Psychiatric/Neurological: Denies Headache, Denies Seizure, Denies Weakness Physical Exam Vital Signs Vital Signs - First Documented 07/24/23 07/24/23 17:56 22:54 Temp 37.4 Pulse 95 Resp 16 B/P (MAP) 160/79 (106) Pulse Ox 99 O2 Delivery Room Air FiO2 21 Capillary Refill : Less Than 3 Seconds Height, Weight, BMI Height: 5'8.00" Weight: 189lbs. 0.0oz. 85.952978ey; 35.40 BMI Method:Stated General Appearance: No Apparent Distress, WD/WN Eyes: Bilateral Eye Normal Inspection HEENT: TMs Normal, Normal ENT Inspection Neck: Non Tender, Supple Respiratory: Chest Non Tender, No Accessory Muscle Use, No Respiratory Distress, Crackles, Wheezing Cardiovascular: Regular Rate, Rhythm, Normal Peripheral Pulses Extremity: No Calf Tenderness, No Pedal Edema Neurologic/Psychiatric: Alert, Oriented x3, No Motor/Sensory Deficits, Normal Mood/Affect Skin: Normal Color, Warm/Dry Assessment/Plan Assessment and Plan Unstable angina Hx of CABG in 2009, multiple stents Nausea - Consider echo. Last known echo was 08/15/21 w/ EF 60-65% - Cardiac cath likely indicated, NPO after midnight - Telemetry - Continue statin, baby ASA, nitroglycerin, brillinta - Pain control- continue Ranolazine, hydromorphone, oxycodone - Continue protonix and zofran for nausea control - Cardiology following, appreciate recommendations Uncomplicated UTI - Received ceftriaxone 1000 mg IV in ER, culture grew E.coli COPD - On O2 - Albuterol inhaler IDDM - Sliding scale insulin DVT prophylaxis: Enoxaparin, SCDs Clinical Quality Measures AMI/AHF: ASA po Prior to arrival: No Smoking Cessation Counseling: Counseling-Symptomatic: 3-10 Minutes LUZ MARINA SANTIAGO DO 07/26/23 6955: History of Present Illness History of Present Illness Reason for visit/HPI Chief complaint: Chest pain HPI: This is a 48-year-old female clinic patient of Dr. Mendez who has a past medical history of CAD previous bypass 10 years ago who presented to the ER with chest pain. Troponin was negative but due to the high risk nature of her pain and past medical history she was monitored and cardiology consulted. Allergies and Home Medications Allergies Coded Allergies: Penicillins (Verified Allergy, Unknown, 05/16/21) Sulfa (Sulfonamide Antibiotics) (Verified Allergy, Unknown, 05/16/21) naproxen (Verified Allergy, Unknown, HIVES, NAUSEA--can take ibuprofen, 05/16/21) Patient Home Medication List Home Medication List Reviewed: Yes Eszopiclone (Eszopiclone) 2 Mg Tablet, 2 MG PO HS PRN for SLEEP, (Reported) Entered as Reported by: SONJA OH on 07/25/23 1616 Last Action: Reviewed Ibuprofen (Ibuprofen) 200 Mg Tablet, 400 MG PO Q6H PRN for PAIN-MILD (1-4), (Reported) Entered as Reported by: SONJA OH on 07/25/23 1616 Last Action: Reviewed Insulin Lispro (Insulin Lispro Kwikpen U-100) 100 Unit/Ml Insuln.pen, 3 UNITS SC AC, (Reported) Entered as Reported by: SONJA OH on 07/25/23 1616 Last Action: Reviewed Discontinued Medications Albuterol Sulfate (Ventolin Hfa) 1 Puff Puff, 2 PUFF INH Q4H Discontinued Reason: No Longer Taking Prescribed by: MAYRA ARELLANO MD on 07/02/22 1707 Last Action: Discontinued Aripiprazole (Abilify) 15 Mg Tablet, 7.5 MG PO DAILY, (Reported) Discontinued Reason: No Longer Taking Entered as Reported by: SONJA OH on 06/27/21 1036 Last Action: Discontinued Aspirin (Aspirin EC) 81 Mg Tablet.dr, 81 MG PO DAILY, (Reported) Discontinued Reason: No Longer Taking Entered as Reported by: SONJA OH on 05/24/21 0959 Last Action: Discontinued Atorvastatin Calcium (Atorvastatin Calcium) 80 Mg Tablet, 80 MG PO HS Discontinued Reason: No Longer Taking Prescribed by: MITCHELL LEBRON on 04/10/22 1423 Last Action: Discontinued Clopidogrel Bisulfate (Plavix) 75 Mg Tablet, 75 MG PO DAILY, (Reported) Discontinued Reason: No Longer Taking Entered as Reported by: SONJA OH on 05/26/21 1059 Last Action: Discontinued Cyclobenzaprine HCl (Cyclobenzaprine HCl) 10 Mg Tablet, 10 MG PO Q8H PRN for SPASMS Discontinued Reason: No Longer Taking Prescribed by: HEATH CAMARILLO on 04/22/22 2331 Last Action: Discontinued Eszopiclone (Lunesta) 2 Mg Tablet, 2 MG PO HS, (Reported) Discontinued Reason: No Longer Taking Entered as Reported by: DOLORES LARIOS on 08/15/21 1555 Last Action: Discontinued Ezetimibe (Ezetimibe) 10 Mg Tablet, 10 MG PO HS Discontinued Reason: No Longer Taking Prescribed by: MITCHELL LEBRON on 04/10/22 1423 Last Action: Discontinued Hydroxyzine HCl (Hydroxyzine HCl) 25 Mg Tablet, 25 MG PO BID PRN for ANXIETY, (Reported) Discontinued Reason: No Longer Taking Entered as Reported by: SONJA OH on 06/27/21 1036 Last Action: Discontinued Ibuprofen (Advil) 200 Mg Tablet, 200 MG PO Q8H PRN for PAIN-MILD (1-4), (Reported) Discontinued Reason: No Longer Taking Entered as Reported by: DOLORES LARIOS on 04/10/22 1409 Last Action: Discontinued Isosorbide Mononitrate (Isosorbide Mononitrate ER) 30 Mg Tab.er.24h, 30 MG PO DAILY Discontinued Reason: No Longer Taking Prescribed by: MITCHELL LEBRON on 04/10/22 1423 Last Action: Discontinued Metformin HCl (Metformin HCl) 500 Mg Tablet, 500 MG PO DAILY, (Reported) Discontinued Reason: No Longer Taking Entered as Reported by: DOLORES LARIOS on 08/15/21 1552 Last Action: Discontinued Metoprolol Tartrate (Metoprolol Tartrate) 25 Mg Tablet, 12.5 MG PO BID, (Reported) Discontinued Reason: No Longer Taking Entered as Reported by: SONJA OH on 05/26/21 1059 Last Action: Discontinued Nitroglycerin (Nitroglycerin) 0.3 Mg Tab.subl, 0.3 MG SL UD PRN for CHEST PAIN (ANGINA), (Reported) Discontinued Reason: No Longer Taking Entered as Reported by: DOLORES LARIOS on 04/10/22 1407 Last Action: Discontinued Ondansetron (Ondansetron Odt) 8 Mg Tab.rapdis, 8 MG SL Q4H PRN for NAUSEA/VOMITING Discontinued Reason: No Longer Taking Prescribed by: MAYRA ARELLANO MD on 07/02/22 1705 Last Action: Discontinued Oxycodone HCl/Acetaminophen (Percocet 5-325 mg Tablet) 1 Each Tablet, 1 TAB PO Q6H PRN for PAIN-BREAKTHROUGH Discontinued Reason: No Longer Taking Prescribed by: MARGARET HDEZ on 04/30/22 1924 Last Action: Discontinued Pantoprazole Sodium (Pantoprazole Sodium) 40 Mg Tablet.dr, 40 MG PO BID Discontinued Reason: No Longer Taking Prescribed by: RAINE HERNANDEZ on 06/04/22 1048 Last Action: Discontinued Prednisone (Prednisone) 50 Mg Tab, 50 MG PO DAILY Discontinued Reason: No Longer Taking Prescribed by: MAYRA ARELLANO MD on 07/02/22 170 Last Action: Discontinued Sertraline HCl (Sertraline HCl) 100 Mg Tablet, 100 MG PO HS, (Reported) Discontinued Reason: No Longer Taking Entered as Reported by: SONJA OH on 06/27/21 1036 Last Action: Discontinued Varenicline Tartrate (Varenicline) 0.5 Mg (11)-1 Mg (42) Tab.ds.pk, 1 TAB PO UD, (Reported) Discontinued Reason: No Longer Taking Entered as Reported by: DOLORES LARIOS on 04/10/22 1406 Last Action: Discontinued Past Jivdbxk-Gxdrcn-Ntfqke Hx Patient Social History Marrital Status: single Employed/Student: unemployed Smoking Status: Former Smoker Past Medical History Surgeries: CABG, Coronary Stent High Cholesterol, Hypertension Review of Systems Constitutional: see HPI Respiratory: dyspnea on exertion Cardiovascular: chest pain Physical Exam General Appearance: No Apparent Distress, WD/WN, Chronically ill Eyes: Bilateral Eye Normal Inspection, Bilateral Eye PERRL, Bilateral Eye EOMI HEENT: PERRL/EOMI, Normal ENT Inspection, Pharynx Normal Neck: Full Range of Motion, Normal Inspection, Non Tender, Supple, Carotid Bruit Respiratory: Chest Non Tender, Lungs Clear, Normal Breath Sounds, No Accessory Muscle Use, No Respiratory Distress Cardiovascular: Regular Rate, Rhythm, No Edema, No Gallop, No JVD, No Murmur, Normal Peripheral Pulses Gastrointestinal: Normal Bowel Sounds, No Organomegaly, No Pulsatile Mass, Non Tender, Soft Back: Normal Inspection, No CVA Tenderness, No Vertebral Tenderness Extremity: Normal Capillary Refill, Normal Inspection, Normal Range of Motion, Non Tender, No Calf Tenderness, No Pedal Edema Neurologic/Psychiatric: Alert, Oriented x3, No Motor/Sensory Deficits, Normal Mood/Affect Skin: Normal Color, Warm/Dry Lymphatic: No Adenopathy Assessment/Plan Assessment and Plan Assessment: Unstable angina UTI Plan: Cardiology consult Monitor closely Admission Diagnosis Admission Status: Inpatient Order (span 2 midnights) Reason for Inpatient Admission: Unstable angina Supervisory-Addendum Brief Verification & Attestation Participated in pt care: history, MDM, physical Personally performed: exam, history, MDM, supervision of care Care discussed with: Medical Student Procedures: n/a Results interpretation: Verified all documentation Verification and Attestation of Medical Student E/M Service A medical student performed and documented this service in my presence. I reviewed and verified all information documented by the medical student and made modifications to such information, when appropriate. I personally performed the physical exam and medical decision making. Luz Marina Santiago, Jul 26, 2023,04:54 PHUONG BASURTO Jul 25, 2023 08:43 LUZ MARINA SANTIAGO DO Jul 26, 2023 04:55
[2023-07-25] MEDS: DOCUSATE SODIUM 100 MG CAPSULE PO SCH ×2 (09:00→21:22)
[2023-07-25] MEDS: SENNOSIDES 8.6 MG TABLET PO SCH ×2 (09:00→21:22)
--- NOTE | 2023-07-25 09:46 | Consultation-Cardiology ---
HPI-Cardiology Cardiology Consultation: Date of Consultation 07/25/23 Time Seen by a Provider: 09:20 Date of Admission 07-24-23 Attending Physician Willem Chamorro DO Admitting Physician Admitting Physician: Stephanie Clemens DO Attending Physician: Stephanie Clemens DO Consulting Physician Karie Aguilar MD HPI: Chief Complaint: Chest pain Ms. Da Silva is a 48 yr old female admitted to [facility] from the ED with c/o left sided chest pain which she describes as sharp and stabbing episodes lasting for a few seconds that radiates into her neck. She reports a dull ache to the left side of her chest which is chronic and unchanged. It is a constant ache which does not change with movement. She reports this is similar to the chest pain that she has had for several years with recent evaluation with MPI at [facility] in [place], [place] at which time medical therapy was advised. She reports SOB which is chronic and unchanged. She denies any palpitations, syncope or near syncope. No c/o LE swelling. She reports occ n/v. Review of Systems-Cardiology Review of Systems Constitutional: No chills, No fever, No malaise Eyes: No vision change Ears/Nose/Throat: No epistaxis, No recent hearing loss Respiratory: As described under HPI Cardiovascular: As described under HPI Gastrointestinal: As described under HPI Genitourinary: No dysuria, No hematuria Musculoskeletal: no symptoms reported Skin: No rash on exposed areas, No ulcerations on exposed areas Psychiatric/Neurological: anxiety, depression; No seizure, No focal weakness, No syncope Hematologic: No bleeding abnormalities [id number] Hx Patient Social History Smoking Status: Current Everyday Smoker 2nd Hand Smoke Exposure: No Alcohol Use?: No Substance type: Marijuana Pt feels they are or have been: No Tobacco type used: Cigarettes Immunizations Up To Date Tetanus Booster (TDap): More than 5yrs Date of Pneumonia Vaccine: Jun 20, 2013 Date of Influenza Vaccine: May 09, 2021 Past Medical History PMH As described under Assessment. Family Medical History Family Medical History: She states her father had a myocardial infarction at the age of 25. Allergies and Home Medications Allergies Coded Allergies: Penicillins (Verified Allergy, Unknown, 05/16/21) Sulfa (Sulfonamide Antibiotics) (Verified Allergy, Unknown, 05/16/21) naproxen (Verified Allergy, Unknown, HIVES, NAUSEA--can take ibuprofen, 05/16/21) Patient Home Medication List Aspirin (Aspirin) 81 Mg Tab.chew, 81 MG PO DAILY Prescribed by: DAVID ERNST on 07/26/23943 Cefdinir (Cefdinir) 300 Mg Capsule, 300 MG PO BID Prescribed by: STEPHANIE CLEMENS on 07/26/23 111 Eszopiclone (Eszopiclone) 2 Mg Tablet, 2 MG PO HS PRN for SLEEP, (Reported) Entered as Reported by: SONJA OH on 07/25/231615 Last Action: Converted Insulin Lispro (Insulin Lispro Kwikpen U-100) 100 Unit/Ml Insuln.pen, 3 UNITS SC AC, (Reported) Entered as Reported by: SONJA OH on 07/25/231615 Last Action: Held Metoprolol Succinate (Metoprolol Succinate) 25 Mg Tab.er.24h, 25 MG PO DAILY Prescribed by: DAVID ERNST on 07/26/23943 Nitroglycerin (Nitroglycerin) 0.4 Mg Tab.subl, 0.4 MG SL UD PRN for CHEST PAIN (ANGINA) Prescribed by: STEPHANIE CLEMENS on 07/26/231116 Ranolazine (Ranolazine ER) 500 Mg Tab.er.12h, 500 MG PO BID Prescribed by: DAVID ERNST on 07/26/23943 Rosuvastatin Calcium (Rosuvastatin Calcium) 20 Mg Tablet, 40 MG PO HS Prescribed by: DAVID ERNST on 07/26/23943 Ticagrelor (Brilinta) 90 Mg Tablet, 90 MG PO BID Prescribed by: DAVID ERNST on 07/26/23943 Discontinued Medications Albuterol Sulfate (Ventolin Hfa) 1 Puff Puff, 2 PUFF INH Q4H Discontinued Reason: No Longer Taking Prescribed by: MAYRA ARELLANO MD on 07/02/22 1707 Last Action: Discontinued Aripiprazole (Abilify) 15 Mg Tablet, 7.5 MG PO DAILY, (Reported) Discontinued Reason: No Longer Taking Entered as Reported by: SONJA OH on 06/27/21 1036 Last Action: Discontinued Aspirin (Aspirin EC) 81 Mg Tablet.dr, 81 MG PO DAILY, (Reported) Discontinued Reason: No Longer Taking Entered as Reported by: SONJA OH on 05/24/21 0959 Last Action: Discontinued Atorvastatin Calcium (Atorvastatin Calcium) 80 Mg Tablet, 80 MG PO HS Discontinued Reason: No Longer Taking Prescribed by: MITCHELL LEBRON on 04/10/22 1423 Last Action: Discontinued Clopidogrel Bisulfate (Plavix) 75 Mg Tablet, 75 MG PO DAILY, (Reported) Discontinued Reason: No Longer Taking Entered as Reported by: SONJA OH on 05/26/21 1059 Last Action: Discontinued Cyclobenzaprine HCl (Cyclobenzaprine HCl) 10 Mg Tablet, 10 MG PO Q8H PRN for SPASMS Discontinued Reason: No Longer Taking Prescribed by: HEATH CAMARILLO on 04/22/22 2331 Last Action: Discontinued Eszopiclone (Lunesta) 2 Mg Tablet, 2 MG PO HS, (Reported) Discontinued Reason: No Longer Taking Entered as Reported by: DOLORES LARIOS on 08/15/21 1555 Last Action: Discontinued Ezetimibe (Ezetimibe) 10 Mg Tablet, 10 MG PO HS Discontinued Reason: No Longer Taking Prescribed by: MITCHELL LEBRON on 04/10/22 142 Last Action: Discontinued Hydroxyzine HCl (Hydroxyzine HCl) 25 Mg Tablet, 25 MG PO BID PRN for ANXIETY, (Reported) Discontinued Reason: No Longer Taking Entered as Reported by: SONJA OH on 06/27/21 1036 Last Action: Discontinued Ibuprofen (Advil) 200 Mg Tablet, 200 MG PO Q8H PRN for PAIN-MILD (1-4), (Reported) Discontinued Reason: No Longer Taking Entered as Reported by: DOLORES LARIOS on 04/10/22 1409 Last Action: Discontinued Ibuprofen (Ibuprofen) 200 Mg Tablet, 400 MG PO Q6H PRN for PAIN-MILD (1-4), (Reported) Entered as Reported by: SONJA OH on 07/25/23 1616 Last Action: Held Isosorbide Mononitrate (Isosorbide Mononitrate ER) 30 Mg Tab.er.24h, 30 MG PO DAILY Discontinued Reason: No Longer Taking Prescribed by: MITCHELL LEBRON on 04/10/22 1423 Last Action: Discontinued Metformin HCl (Metformin HCl) 500 Mg Tablet, 500 MG PO DAILY, (Reported) Discontinued Reason: No Longer Taking Entered as Reported by: DOLORES LARIOS on 08/15/21 1552 Last Action: Discontinued Metoprolol Tartrate (Metoprolol Tartrate) 25 Mg Tablet, 12.5 MG PO BID, (Rep orted) Discontinued Reason: No Longer Taking Entered as Reported by: SONJA OH on 05/26/21 1059 Last Action: Discontinued Nitroglycerin (Nitroglycerin) 0.3 Mg Tab.subl, 0.3 MG SL UD PRN for CHEST PAIN (ANGINA), (Reported) Discontinued Reason: No Longer Taking Entered as Reported by: DOLORES LARIOS on 04/10/22 1407 Last Action: Discontinued Ondansetron (Ondansetron Odt) 8 Mg Tab.rapdis, 8 MG SL Q4H PRN for NAUSEA/VOMITING Discontinued Reason: No Longer Taking Prescribed by: MAYRA ARELLANO MD on 07/02/22 1705 Last Action: Discontinued Oxycodone HCl/Acetaminophen (Percocet 5-325 mg Tablet) 1 Each Tablet, 1 TAB PO Q6H PRN for PAIN-BREAKTHROUGH Discontinued Reason: No Longer Taking Prescribed by: MARGARET HDEZ on 04/30/22 1924 Last Action: Discontinued Pantoprazole Sodium (Pantoprazole Sodium) 40 Mg Tablet.dr, 40 MG PO BID Discontinued Reason: No Longer Taking Prescribed by: RAINE HERNANDEZ on 06/04/22 1048 Last Action: Discontinued Prednisone (Prednisone) 50 Mg Tab, 50 MG PO DAILY Discontinued Reason: No Longer Taking Prescribed by: MAYRA ARELLANO MD on 07/02/22 170 Last Action: Discontinued Sertraline HCl (Sertraline HCl) 100 Mg Tablet, 100 MG PO HS, (Reported) Discontinued Reason: No Longer Taking Entered as Reported by: SONJA OH on 06/27/21 1036 Last Action: Discontinued Varenicline Tartrate (Varenicline) 0.5 Mg (11)-1 Mg (42) Tab.ds.pk, 1 TAB PO UD, (Reported) Discontinued Reason: No Longer Taking Entered as Reported by: DOLORES LARIOS on 04/10/22 1406 Last Action: Discontinued Physical Exam-Cardiology Physical Exam Vital Signs/I&O Capillary Refill : Less Than 3 Seconds Constitutional: AAO x 3, well-developed, well-nourished HEENT: PERRL, hearing is well preserved Neck: No carotid bruit; carotid pulses are 2 + bilaterally Respiratory: No accessory muscle use, No respiratory distress; chest expansion is symmetric, chest is bilaterally symmetric, rhonchi (scattered; prolonged exp phase) Cardiovascular: regular rate-rhythm; No JVD; S1 and S2 Gastrointestinal: soft; No guarding; audible bowel sounds Extremities: no lower extremity edema bilateral Neurologic/Psychiatric: other (moves all extremities) Skin: No rash on exposed areas, No ulcerations on exposed areas Data Review Labs Microbiology 07/24/23 Urine Culture - Final, Complete Escherichia coli Radiology NAME: WAN DA SILVA [facility] REC#: [id number] PT STATUS: REG ER : 1975 PHYSICIAN: HEATH CAMARILLO DO ADMIT DATE: 07/24/23/ER Signed Date of Exam:07/24/23 CHEST 1 VIEW, AP/PA ONLY INDICATION: Chest pain COMPARISON: 07/05/2023 TECHNIQUE: Single radiograph of the chest dated 07/24/2023. FINDINGS: Postsurgical changes of a CABG are again identified. The cardiac silhouette is within normal limits in size. No significant pulmonary vascular congestion. Retrocardiac density and gas lucency is present, consistent with a small hiatal hernia. Vascular stent is again noted overlying the medial left upper chest, stable. The lungs are clear of focal pulmonary opacity. No significant pleural effusion. No pneumothorax. No acute osseous abnormality. IMPRESSION: No acute cardiopulmonary abnormality with stable postsurgical changes and small hiatal hernia present. Dictated by: Dictated on workstation # [id number] Dict: 07/24/23 1839 Trans: 07/24/231844 CVB [id number] Interpreted by: MARY ANN IRELAND MD Electronically signed by: MARY ANN IRELAND MD 07/24/23 7480 ECG Impression ECG Initial ECG Rhythm: Normal Sinus A/P-Cardiology Assessment/Admission Diagnosis Chest pain - no evidence of ACS at this time CAD - H/o CABG in 2009. - Last RI on 04/23/20 due to mid-vessel, instent occlusion of RCA, treated with ballon angioplasty and stenting with Xience Radha 2.25x33 stent that was post-dilated to 3 mm kevin (Dr Bartlett). LAD had mild instent restenosis in prox LAD, LCX had patent stent, LVEDP 32 mmHg, preserved LV function, patent SVG to a diag, atretic LOPEZ to LAD. - MPI of 05-17-21: Inferior wall myocardial infarction with a small amount of p sang-infarct ischemia. Inferior wall hypokinesis. Well preserved global left ventricular systolic function with ejection fraction of 54%. - Echo of 04/23/20: LVEF 55-60%, mild dil LA,mild to mod MR, PASP 25-30 mmHg - Card cath on 05/24/21: patent stents in the L cor system, occluded/atretic LOPEZ to LAD, patent SVG to an OM with 70% ostial stenosis that was successfully stented on 05/24/21 with Radha 2.5 x 18 mm stent (deployed at 20 [address]), midvessel instent occlusion of RCA and 90% proximal instent stenosis of RCA, prox RCA stenosis reduced to 50% with balloon angioplasty, distal RCA occlusion could not be opened up, LVEDP 17 mmHg - Cardiac cath of 08-15-[address] Jay Normal central aortic pressure with elevated left ventricular end-diastolic pressure. Patent stent in the mid left anterior descending coronary artery. Total occlusion of the mid right coronary artery within previously placed stents. This is known to be a chronic total occlusion. The left internal mammary artery graft to left anterior descending coronary artery is known to be atretic and was not studied during this procedure. Patent saphenous vein graft to the obtuse marginal branch with a patent stent in the ostium. - MPI of 06-11-[address] Christen Gustafson at [facility] in [place], [place] - Large fixed defect, inferior wall. Inferior wall ted-infarct reversible ischemia. Per Dr. Romero note medical tx advised with Ranexa being added at that time H/O left subclavian stent on 04-10-[address] Pino at [facility] in [place], [place] History of hiatal hernia noted on CT in January 2021, history of erosive e sophagitis. - Continue on PPI Tobaccoism - cessation advised Hyperlipidemia - continue statin Diabetes mellitus BMI 36 Depression, anxiety Discussion and Recomendations Chest pain - no evidence of ACS - see recent cardiac w/u at [facility] (above) Continue home medications - including Ranexa, BB, Brilinta, ASA - previously on Isosorbide dinitrate 20mg TID - d/t somewhat low BP will hold for now (albeit asymptomatic) Monitor lab Replace electrolytes as indicated Further recs will be based on her hospital course We would like to thank medical services for this consult Clinical Quality Measures AMI/AHF: ASA po Prior to arrival: No Smoking Cessation Counseling: Counseling-Symptomatic: 3-10 Minutes DAVID ERNST [facility] Jul 25, 2023 09:46
[2023-07-25] MEDS: RANOLAZINE ER 500 MG TABLET PO SCH ×2 (12:22→21:22)
[2023-07-25] MEDS: PANTOPRAZOLE 40 MG TABLET PO SCH (12:22)
[2023-07-25] MEDS: TICAGRELOR 90 MG TABLET (BRILINTA) PO SCH ×2 (12:22→21:22)
[2023-07-25] MEDS ORDERED: INSU100I64 SC (16:16)
[2023-07-25] MEDS ORDERED: IBUP-2473 PO (16:16)
[2023-07-25] MEDS ORDERED: ESZO2TAB31 PO (16:16)
--- NOTE | 2023-07-25 17:24 | Consultation-Cardiology ---
HPI-Cardiology Cardiology Consultation: Date of Consultation 07/25/23 Time Seen by a Provider: 12:45 Date of Admission Attending Physician Willem Chamorro DO Admitting Physician Admitting Physician: Luz Marina Clemens DO Attending Physician: LuzM arina Clemens DO Consulting Physician JIMENA ROBLES MD, MA, FACP, FACC, FSCAI, CCDS Physician requesting consult: Dr Clemens HPI: Chief Complaint: Reason for Card consult: Chest pain Ms. Champagne is a 48 yr old female admitted to [facility] from the ED with c/o left sided chest pain which she describes as sharp and stabbing episodes lasting for a few seconds that radiates into her neck. She reports a dull ache to the left side of her chest which is chronic and unchanged. It is a constant ache which does not change with movement. She reports this is similar to the chest pain that she has had for several years with recent evaluation with MPI at [facility] in [place], [place] at which time medical therapy was advised. She reports SOB which is chronic and unchanged. She denies any palpitations, syncope or near syncope. No c/o LE swelling. She reports occ n/v. Review of Systems-Cardiology Review of Systems Constitutional: No chills, No fever, No malaise Eyes: No vision change Ears/Nose/Throat: No epistaxis, No recent hearing loss Respiratory: As described under HPI Cardiovascular: As described under HPI Gastrointestinal: As described under HPI Genitourinary: No dysuria, No hematuria Musculoskeletal: no symptoms reported Skin: No rash on exposed areas, No ulcerations on exposed areas Psychiatric/Neurological: anxiety, depression; No seizure, No focal weakness, No syncope Hematologic: No bleeding abnormalities SLO-Mzqczd-Kfzurn Hx Patient Social History Smoking Status: Current Everyday Smoker 2nd Hand Smoke Exposure: No Alcohol Use?: No Substance type: Marijuana Pt feels they are or have been: No Tobacco type used: Cigarettes Immunizations Up To Date Tetanus Booster (TDap): More than 5yrs Date of Pneumonia Vaccine: Jun 20, 2013 Date of Influenza Vaccine: May 09, 2021 Past Medical History PMH As described under Assessment. Family Medical History Family Medical History: She states her father had a myocardial infarction at the age of 25. Allergies and Home Medications Allergies Coded Allergies: Penicillins (Verified Allergy, Unknown, 05/16/21) Sulfa (Sulfonamide Antibiotics) (Verified Allergy, Unknown, 05/16/21) naproxen (Verified Allergy, Unknown, HIVES, NAUSEA--can take ibuprofen, 05/16/21) Patient Home Medication List Home Medication List Reviewed: Yes Eszopiclone (Eszopiclone) 2 Mg Tablet, 2 MG PO HS PRN for SLEEP, (Reported) Entered as Reported by: SONJA OH on 07/25/231615 Last Action: Reviewed Ibuprofen (Ibuprofen) 200 Mg Tablet, 400 MG PO Q6H PRN for PAIN-MILD (1-4), (Reported) Entered as Reported by: SONJA OH on 07/25/231615 Last Action: Reviewed Insulin Lispro (Insulin Lispro Kwikpen U-100) 100 Unit/Ml Insuln.pen, 3 UNITS SC AC, (Reported) Entered as Reported by: SONJA OH on 07/25/231615 Last Action: Reviewed Discontinued Medications Albuterol Sulfate (Ventolin Hfa) 1 Puff Puff, 2 PUFF INH Q4H Discontinued Reason: No Longer Taking Prescribed by: MAYRA ARELLANO MD on 07/02/22 1707 Last Action: Discontinued Aripiprazole (Abilify) 15 Mg Tablet, 7.5 MG PO DAILY, (Reported) Discontinued Reason: No Longer Taking Entered as Reported by: SONJA OH on 06/27/21 1036 Last Action: Discontinued Aspirin (Aspirin EC) 81 Mg Tablet.dr, 81 MG PO DAILY, (Reported) Discontinued Reason: No Longer Taking Entered as Reported by: SONJA OH on 05/24/21 0959 Last Action: Discontinued Atorvastatin Calcium (Atorvastatin Calcium) 80 Mg Tablet, 80 MG PO HS Discontinued Reason: No Longer Taking Prescribed by: MITCHELL LEBRON on 04/10/22 1423 Last Action: Discontinued Clopidogrel Bisulfate (Plavix) 75 Mg Tablet, 75 MG PO DAILY, (Reported) Discontinued Reason: No Longer Taking Entered as Reported by: SONJA OH on 05/26/21 1059 Last Action: Discontinued Cyclobenzaprine HCl (Cyclobenzaprine HCl) 10 Mg Tablet, 10 MG PO Q8H PRN for SPASMS Discontinued Reason: No Longer Taking Prescribed by: HEATH CAMARILLO on 04/22/22 2331 Last Action: Discontinued Eszopiclone (Lunesta) 2 Mg Tablet, 2 MG PO HS, (Reported) Discontinued Reason: No Longer Taking Entered as Reported by: DOLORES LARIOS on 08/15/21 1555 Last Action: Discontinued Ezetimibe (Ezetimibe) 10 Mg Tablet, 10 MG PO HS Discontinued Reason: No Longer Taking Prescribed by: MITCHELL LEBRON on 04/10/22 1423 Last Action: Discontinued Hydroxyzine HCl (Hydroxyzine HCl) 25 Mg Tablet, 25 MG PO BID PRN for ANXIETY, (Reported) Discontinued Reason: No Longer Taking Entered as Reported by: SONJA OH on 06/27/21 1036 Last Action: Discontinued Ibuprofen (Advil) 200 Mg Tablet, 200 MG PO Q8H PRN for PAIN-MILD (1-4), (Reported) Discontinued Reason: No Longer Taking Entered as Reported by: DOLORES LARIOS on 04/10/22 1409 Last Action: Discontinued Isosorbide Mononitrate (Isosorbide Mononitrate ER) 30 Mg Tab.er.24h, 30 MG PO DAILY Discontinued Reason: No Longer Taking Prescribed by: MITCHELL LEBRON on 04/10/22 1423 Last Action: Discontinued Metformin HCl (Metformin HCl) 500 Mg Tablet, 500 MG PO DAILY, (Reported) Discontinued Reason: No Longer Taking Entered as Reported by: DOLORES LARIOS on 08/15/21 1552 Last Action: Discontinued Metoprolol Tartrate (Metoprolol Tartrate) 25 Mg Tablet, 12.5 MG PO BID, (Reported) Discontinued Reason: No Longer Taking Entered as Reported by: SONJA OH on 05/26/21 1059 Last Action: Discontinued Nitroglycerin (Nitroglycerin) 0.3 Mg Tab.subl, 0.3 MG SL UD PRN for CHEST PAIN (ANGINA), (Reported) Discontinued Reason: No Longer Taking Entered as Reported by: DOLORES LARIOS on 04/10/22 1407 Last Action: Discontinued Ondansetron (Ondansetron Odt) 8 Mg Tab.rapdis, 8 MG SL Q4H PRN for NAUSEA/VOMITING Discontinued Reason: No Longer Taking Prescribed by: MAYRA ARELLANO MD on 07/02/22 1705 Last Action: Discontinued Oxycodone HCl/Acetaminophen (Percocet 5-325 mg Tablet) 1 Each Tablet, 1 TAB PO Q6H PRN for PAIN-BREAKTHROUGH Discontinued Reason: No Longer Taking Prescribed by: MARGARET HDEZ on 04/30/22 1924 Last Action: Discontinued Pantoprazole Sodium (Pantoprazole Sodium) 40 Mg Tablet.dr, 40 MG PO BID Discontinued Reason: No Longer Taking Prescribed by: RAINE HERNANDEZ on 06/04/22 1048 Last Action: Discontinued Prednisone (Prednisone) 50 Mg Tab, 50 MG PO DAILY Discontinued Reason: No Longer Taking Prescribed by: MAYRA ARELLANO MD on 07/02/22 1707 Last Action: Discontinued Sertraline HCl (Sertraline HCl) 100 Mg Tablet, 100 MG PO HS, (Reported) Discontinued Reason: No Longer Taking Entered as Reported by: SONJA OH on 06/27/21 1036 Last Action: Discontinued Varenicline Tartrate (Varenicline) 0.5 Mg (11)-1 Mg (42) Tab.ds.pk, 1 TAB PO UD, (Reported) Discontinued Reason: No Longer Taking Entered as Reported by: DOLORES LARIOS on 04/10/22 1406 Last Action: Discontinued Physical Exam-Cardiology Physical Exam Vital Signs/I&O 07/25/23 07/25/23 07/25/23 07/25/23 07:00 07:00 08:00 12:00 Temp 37.1 Pulse 74 91 Resp 20 B/P (MAP) 120/78 (92) Pulse Ox 97 98 O2 Delivery Room Air Room Air 07/25/23 07/25/23 07/25/23 07/25/23 12:00 13:00 15:04 16:03 Temp 36.7 Pulse 83 79 81 Resp 16 18 B/P (MAP) 104/65 (78) 126/66 (86) Pulse Ox 99 99 O2 Delivery Room Air Room Air Room Air 07/24/23 23:59 Intake Total 0 ml Output Total 0 ml Balance 0 ml Capillary Refill : Less Than 3 Seconds Constitutional: AAO x 3, well-developed, well-nourished HEENT: PERRL, hearing is well preserved Neck: No carotid bruit; carotid pulses are 2 + bilaterally Respiratory: No accessory muscle use, No respiratory distress; chest expansion is symmetric, chest is bilaterally symmetric, rhonchi (scattered; prolonged exp phase) Cardiovascular: regular rate-rhythm; No JVD; S1 and S2 Gastrointestinal: soft; No guarding; audible bowel sounds Extremities: no lower extremity edema bilateral Neurologic/Psychiatric: other (moves all extremities) Skin: No rash on exposed areas, No ulcerations on exposed areas Data Review Labs Laboratory Tests 07/24/23 18:00: White Blood Count 7.0, Red Blood Count 4.55, Hemoglobin 14.1, Hematocrit 42, Mean Corpuscular Volume 92, Mean Corpuscular Hemoglobin 31, Mean Corpuscular Hemoglobin Concent 34, Red Cell Distribution Width 13.9, Platelet Count 246, Mean Platelet Volume 10.4, Immature Granulocyte % (Auto) 0, Neutrophils (%) (Auto) 58, Lymphocytes (%) (Auto) 32, Monocytes (%) (Auto) 5, Eosinophils (%) (Auto) 3, Basophils (%) (Auto) 1, Neutrophils # (Auto) 4.1, Lymphocytes # (Auto) 2.2, Monocytes # (Auto) 0.4, Eosinophils # (Auto) 0.2, Basophils # (Auto) 0.0, Immature Granulocyte # (Auto) 0.0, Prothrombin Time 12.2, INR Comment 0.9, Activated Partial Thromboplast Time 28, D-Dimer 0.65H, Sodium Level 137, Pot assium Level 4.1, Chloride Level 107, Carbon Dioxide Level 23, Anion Gap 7, Blood Urea Nitrogen 13, Creatinine 1.00, Estimat Glomerular Filtration Rate 69, BUN/Creatinine Ratio 13, Glucose Level 231H, Calcium Level 8.9, Corrected Calci um 9.0, Magnesium Level 2.0, Total Bilirubin 0.5, Aspartate Amino Transf (AST/SGOT) 13, Alanine Aminotransferase (ALT/SGPT) 16, Alkaline Phosphatase 111, Total Creatine Kinase 117, Creatine Kinase MB 2.0, Myoglobin 27.4, Troponin I < 0.028, B-Type Natriuretic Peptide 773.4H, Total Protein 7.2, Albumin 3.9, Amylase Level 63, Lipase 44, Serum Alcohol < 10 07/24/23 19:00: Urine Color YELLOW, Urine Clarity CLOUDY, Urine pH 7.0, Urine Specific Upton 1.025H, Urine Protein TRACEH, Urine Glucose (UA) 2+H, Urine Ketones NEGATIVE, Urine Nitrite POSITIVEH, Urine Bilirubin NEGATIVE, Urine Urobilinogen 0.2, Urine Leukocyte Esterase 1+H, Urine RBC (Auto) TRACEH, Urine RBC 5-10H, Urine WBC 10- 25H, Urine Squamous Epithelial Cells 0-2, Urine Crystals NONE, Urine Bacteria LARGEH, Urine Casts NONE, Urine Mucus NEGATIVE, Urine Culture Indicated YES, Urine Opiates Screen POSITIVEH, Urine Oxycodone Screen NEGATIVE, Urine Methadone Screen NEGATIVE, Urine Barbiturates Screen NEGATIVE, Ur Tricyclic Antidepressants Screen NEGATIVE, Urine Phencyclidine Screen NEGATIVE, Urine Amphetamines Screen NEGATIVE, Urine Methamphetamines Screen NEGATIVE, Urine Benzodiazepines Screen NEGATIVE, Urine Cocaine Screen NEGATIVE, Urine Cannabinoids Screen NEGATIVE 07/25/23 04:54: White Blood Count 5.8, Red Blood Count 3.73L, Hemoglobin 11.4L, Hematocrit 35, Mean Corpuscular Volume 93, Mean Corpuscular Hemoglobin 31, Mean Corpuscular Hemoglobin Concent 33, Red Cell Distribution Width 14.0, Platelet Count 210, Mean Platelet Volume 11.1, Immature Granulocyte % (Auto) 0, Neutrophils (%) (Auto) 49, Lymphocytes (%) (Auto) 37, Monocytes (%) (Auto) 9, Eosinophils (%) (Auto) 4, Basophils (%) (Auto) 1, Neutrophils # (Auto) 2.8, Lymphocytes # (Auto) 2.2, Monocytes # (Auto) 0.5, Eosinophils # (Auto) 0.3, Basophils # (Auto) 0.0, Immature Granulocyte # (Auto) 0.0, Sodium Level 137, Potassium Level 4.0, Chloride Level 107, Carbon Dioxide Level 24, Anion Gap 6, Blood Urea Nitrogen 12, Creatinine 0.97, Estimat Glomerular Filtration Rate 71, BUN/Creatinine Ratio 12, Glucose Level 207H, Calcium Level 8.1L, Corrected Calcium 8.9, Total Bilirubin 0.4, Aspartate Amino Transf (AST/SGOT) 11, Alanine Aminotransferase (ALT/SGPT) 12, Alkaline Phosphatase 96, Troponin I < 0.028, Total Protein 5.6L, Albumin 3.0L, Triglycerides Level 245H, Cholesterol Level 177, LDL Cholesterol Direct 126, VLDL Cholesterol 49H, HDL Cholesterol 35L 07/25/23 12:03: Glucometer 276H 07/25/23 15:49: Glucometer 215H Microbiology 07/24/23 Urine Culture - Preliminary, Resulted Escherichia coli A/P-Cardiology Assessment/Admission Diagnosis Chest pain - no evidence of ACS at this time CAD - H/o CABG in 2009. - Last GA on 04/23/20 due to mid-vessel, instent occlusion of RCA, treated with ballon angioplasty and stenting with Xience Radha 2.25x33 stent that was post- dilated to 3 mm kevin (Dr Bartlett). LAD had mild instent restenosis in prox LAD, LCX had patent stent, LVEDP 32 mmHg, preserved LV function, patent SVG to a diag, atretic LOPEZ to LAD. - MPI of 05-17-21: Inferior wall myocardial infarction with a small amount of ted-infarct ischemia. Inferior wall hypokinesis. Well preserved global left oliver tricular systolic function with ejection fraction of 54%. - Echo of 04/23/20: LVEF 55-60%, mild dil LA,mild to mod MR, PASP 25-30 mmHg - Card cath on 05/24/21: patent stents in the L cor system, occluded/atretic LOPEZ to LAD, patent SVG to an OM with 70% ostial stenosis that was successfully stented on 05/24/21 with Radha 2.5 x 18 mm stent (deployed at 20 [address]), midvessel instent occlusion of RCA and 90% proximal instent stenosis of RCA, prox RCA stenosis reduced to 50% with balloon angioplasty, distal RCA occlusion could not be opened up, LVEDP 17 mmHg - Cardiac cath of 08-15-[address] Jay Normal central aortic pressure with elevated left ventricular end-diastolic pressure. Patent stent in the mid left anterior descending coronary artery. Total occlusion of the mid right coronary artery within previously placed stents. This is known to be a chronic total occlusion. The left internal mammary artery graft to left anterior descending coronary artery is known to be atretic and was not studied during this procedure. Patent saphenous vein graft to the obtuse marginal branch with a patent stent in the ostium. - MPI of 06-11-[address] Christen Gustafson at [facility] in [place], [place] - Large fixed defect, inferior wall. Inferior wall ted-infarct reversible ischemia. Per Dr. Romero note medical tx advised with Ranexa being added at that time H/O left subclavian stent on 04-10-[address]ino [address] [facility] in [place], [place] History of hiatal hernia noted on CT in January 2021, history of erosive esophagitis. - Continue on PPI Tobaccoism - cessation advised Hyperlipidemia - continue statin Diabetes mellitus BMI 36 Depression, anxiety Discussion and Recomendations Chest pain - no evidence of ACS - see recent cardiac w/u at [facility] (above) Continue home medications - including Ranexa, BB, Brilinta, ASA - previously on Isosorbide dinitrate 20mg TID - d/t somewhat low BP will hold for now (albeit asymptomatic) Monitor lab Replace electrolytes as indicated Further recs will be based on her hospital course We would like to thank Medical services for this consult Clinical Quality Measures AMI/AHF: ASA po Prior to arrival: No Smoking Cessation Counseling: Counseling-Symptomatic: 3-10 Minutes JIMENA ROBLES MD FACP FAC CCDS Jul 25, 2023 17:24
[2023-07-25] MEDS ORDERED: ROSUVASTATIN 20 MG TABLET PO SCH (21:00)
[2023-07-26 03:30] VITALS: BP 114/76
[2023-07-26 05:03] LABS: BASOPHILS % (AUTO) 1 % (0-10); EOSINOPHILS # (AUTO) 0.3 10^3/uL (0.0-0.3); EOSINOPHILS % (AUTO) 4 % (0-10); HEMATOCRIT 36 % (35-52); LYMPHOCYTES # (AUTO) 2.2 10^3/uL (1.0-4.0); LYMPHOCYTES % (AUTO) 36 % (12-44); MEAN CORPUSCULAR HEMOGLOBIN 31 pg (25-34); MEAN CORPUSCULAR HGB CONC 34 g/dL (32-36); MEAN CORPUSCULAR VOLUME 91 fL (80-99); MONOCYTES # (AUTO) 0.5 10^3/uL (0.0-1.0); MONOCYTES % (AUTO) 9 % (0-12); NEUTROPHILS # (AUTO) 3.1 10^3/uL (1.8-7.8); NEUTROPHILS % (AUTO) 51 % (42-75); PLATELET COUNT 240 10^3/uL (130-400); WHITE BLOOD COUNT 6.1 10^3/uL (4.3-11.0)
[2023-07-26 05:15] LABS: ALBUMIN 3.1 GM/DL (3.2-4.5); POTASSIUM 4.3 MMOL/L (3.6-5.0)
[2023-07-26 05:16] LABS: CALCIUM 8.7 MG/DL (8.5-10.1)
[2023-07-26 05:17] LABS: TOTAL PROTEIN 5.8 GM/DL (6.4-8.2)
[2023-07-26 05:19] LABS: BILIRUBIN,TOTAL 0.7 MG/DL (0.1-1.0)
[2023-07-26 05:21] LABS: CREATININE SERUM 1.17 MG/DL (0.60-1.30)
[2023-07-26] MEDS ORDERED: ZOLPIDEM 5 MG (AMBIEN) TAB PO PRN (05:30)
[2023-07-26] MEDS: inSUlin ASPART 1 UNIT/0.01 ML (PER UNIT) SC SCH ×2 (06:25→11:52)
[2023-07-26] MEDS ORDERED: FLU QUADRIvalent (6 months+) 60 mcg/0.5 ml 2023-2024 (FLUARIX) IM ONE (06:45)
[2023-07-26 07:20] VITALS: BP 105/60
--- NOTE | 2023-07-26 07:57 | Progress Note ---
PHUONG BAUSRTO 07/26/23 0757: Subjective Date Seen by a Provider: Jul 26, 2023 Time Seen by a Provider: 07:55 Subjective/Events-last exam Today, pt does not have any acute changes and feels about the same from when she first came into the hospital. Notes continued CP that she rates a 9/10, of note nurse states that she has asked for pain meds x4. Reports that her nausea has been under control for the most part. Denies any swelling in her feet. Dr. Aguilar's note from yesterday indicates no recent ACS evidenced by recent cath at [facility]: MPI of 06-11-[address] Christen Gustafson at [facility] in [place], [place] - Large fixed defect, inferior wall. Inferior wall ted-infarct reversible ischemia. Per Dr. Romero note medical tx advised with Ranexa being added at that time. Dr. Chamorro is her PCP. Hospital course: Pt is a 48 y/o F who presented to the ER 07/24/23 w/ CP for 10 min while at a friends house. Reports that she had sudden onset dypsnea, disphoresis, sweating. 05/29 pain. Notes nausea but no vomiting. Hx of CAD with prior CABG and multiple stents. Had CABG in 2009 at [facility], has since had multiple stents placed, does not know how many. Last visit here was 07/06/23 for chest pain. Has had multiple chest angiograms, last one 06/10/23 which was normal at that time. Was at [facility] a few months ago for a cath w/ stent placement, switched from plavix to brillinta at that time. Normally sees Dr. Aguilar. Other pmhx sig for COPD, seizure disorder, cervical cancer, morbid obesity (BMI 33), diabetes insulin dep. Current every day smoker and uses marijuana. In ER, troponin was negative, BNP was 773, D-dimer elevated at 0.65, UA with +nitrites, 1+ leuk, large bacteria- culture grew E.coli, given rocephin in ER. EKG and CXR was unremarkable. Cardiology was consulted and 's note from yesterday indicates no recent ACS evidenced by recent cath at [facility]: MPI of 06-11-[address] Christen Gustafsno at [facility] in [place], [place] - Large fixed defect, inferior wall. I nferior wall ted-infarct reversible ischemia. In hospital, given pain control medication, antibiotics for UTI, and breathing treatments as needed. Will get O2 study to determine if she needs O2 at home. Close f/u with PCP is indicated. Review of Systems General: No Chills, No Night Sweats HEENT: No Head Aches, No Visual Changes Pulmonary: Dyspnea; No Cough Cardiovascular: Chest Pain, Paroxysmal Noc. Dyspnea; No: Palpitations Gastrointestinal: Nausea; No: Vomiting, Abdominal Pain Genitourinary: No Dysuria, No Frequency Musculoskeletal: shoulder pain, back pain Neurological: No: Change in speech, Confusion Objective Exam Last Set of Vital Signs Vital Signs Date Time Temp Pulse Resp B/P (MAP) Pulse Ox O2 Delivery O2 Flow Rate FiO2 07/26/23 07:20 35.7 70 14 105/60 (75) 94 Room Air 07/24/23 22:54 21 Capillary Refill : Less Than 3 Seconds I&O Intake and Output 07/25/23 23:59 Intake Total 3307 ml Output Total 3100 ml Balance 207 ml Intake Oral 3307 ml Output Urine Total 3100 ml Results Lab Laboratory Tests 07/25/23 12:03: Glucometer 276H 07/25/23 15:49: Glucometer 215H 07/25/23 20:23: Glucometer 154H 07/26/23 04:31: White Blood Count 6.1, Red Blood Count 3.89, Hemoglobin 12.0, Hematocrit 36, Mean Corpuscular Volume 91, Mean Corpuscular Hemoglobin 31, Mean Corpuscular Hemoglobin Concent 34, Red Cell Distribution Width 13.9, Platelet Count 240, Mean Platelet Volume 11.0, Immature Granulocyte % (Auto) 0, Neutrophils (%) (Auto) 51, Lymphocytes (%) (Auto) 36, Monocytes (%) (Auto) 9, Eosinophils (%) (Auto) 4, Basophils (%) (Auto) 1, Neutrophils # (Auto) 3.1, Lymphocytes # (Auto) 2.2, Monocytes # (Auto) 0.5, Eosinophils # (Auto) 0.3, Basophils # (Auto) 0.0, Immature Granulocyte # (Auto) 0.0, Sodium Level 135, Potassium Level 4.3, Chloride Level 104, Carbon Dioxide Level 23, Anion Gap 8, Blood Urea Nitrogen 13, Creatinine 1.17, Estimat Glomerular Filtration Rate 57, BUN/Creatinine Ratio 11, Glucose Level 185H, Calcium Level 8.7, Corrected Calcium 9.4, Total Bilirubin 0.7, Aspartate Amino Transf (AST/SGOT) 11, Alanine Aminotransferase (ALT/SGPT) 13, Alkaline Phosphatase 96, Total Protein 5.8L, Albumin 3.1L Microbiology 07/24/23 Urine Culture - Preliminary, Resulted Escherichia coli Assessment/Plan Assessment/Plan Assess & Plan/Chief Complaint Unstable angina Hx of CABG in 2009, multiple stents Nausea - Per cardio, no cath necessary d/t recent cath in May. MPI of 06-11-[address] Christen Gustafson at [facility] in [place], [place] - Large fixed defect, inferior wall. Inferior wall ted-infarct reversible ischemia. - Continue statin, baby ASA, nitroglycerin, brillinta - Pain control- continue Ranolazine, pain meds as needed - Continue protonix and zofran for nausea control - Cardiology following, appreciate recommendations - Advise f/u with PCP Dr. Chamorro in near future Uncomplicated UTI - Received ceftriaxone 1000 mg IV in ER, culture grew E.coli COPD - Resp eval to see if need O2 at home - Albuterol inhaler IDDM - Sliding scale insulin DVT prophylaxis: Enoxaparin, SCDs Clinical Quality Measures Admission Status Admission Dx Unstable angina Hx of CABG in 2009, multiple stents Nausea - Consider echo. Last known echo was 08/15/21 w/ EF 60-65% - Cardiac cath likely indicated, NPO after midnight - Telemetry - Continue statin, baby ASA, nitroglycerin, brillinta - Pain control- continue Ranolazine, hydromorphone, oxycodone - Continue protonix and zofran for nausea control - Cardiology following, appreciate recommendations Uncomplicated UTI - Received ceftriaxone 1000 mg IV in ER, culture grew E.coli COPD - On O2 - Albuterol inhaler IDDM - Sliding scale insulin DVT prophylaxis: Enoxaparin, SCDs AMI/AHF: ASA po Prior to arrival: No Smoking Cessation Counseling: Counseling-Symptomatic: 3-10 Minutes LUZ MARINA SANTIAGO DO 07/26/232043: Supervisory-Addendum Brief Verification & Attestation Participated in pt care: history, MDM, physical Personally performed: exam, history, MDM, supervision of care Care discussed with: Medical Student Procedures: n/a Results interpretation: Verified all documentation Verification and Attestation of Medical Student E/M Service A medical student performed and documented this service in my presence. I reviewed and verified all information documented by the medical student and made modifications to such information, when appropriate. I personally performed the physical exam and medical decision making. Luz Marina Santiago, Jul 26, 2023,20:44 PHUONG BASURTO Jul 26, 2023 07:57 LUZ MARINA SNATIAGO DO Jul 26, 2023 20:44
[2023-07-26] MEDS: ENOXAPARIN 120 MG/0.8 ML SYRINGE SQ SCH (08:55)
[2023-07-26] MEDS: TICAGRELOR 90 MG TABLET (BRILINTA) PO SCH (08:56)
[2023-07-26] MEDS: ASPIRIN enteric coated 81MG TABLET PO SCH (08:56)
[2023-07-26] MEDS: PANTOPRAZOLE 40 MG TABLET PO SCH (08:56)
[2023-07-26] MEDS: RANOLAZINE ER 500 MG TABLET PO SCH (08:56)
[2023-07-26] MEDS: oxyCODONE IMMEDIATE RELEASE 5 MG TABLET PO PRN (08:58)
[2023-07-26] MEDS: DOCUSATE SODIUM 100 MG CAPSULE PO SCH (09:00)
[2023-07-26] MEDS: SENNOSIDES 8.6 MG TABLET PO SCH (09:00)
[2023-07-26] MEDS ORDERED: MTP25TSR PO (09:44)
[2023-07-26] MEDS ORDERED: RANO500T6 PO (09:44)
[2023-07-26] MEDS ORDERED: ASPI-999 PO (09:44)
[2023-07-26] MEDS ORDERED: TICA90TA PO (09:44)
[2023-07-26] MEDS ORDERED: ROSU20TA73 PO (09:44)
[2023-07-26] MEDS ORDERED: CEFD300C3 PO (11:17)
[2023-07-26] MEDS ORDERED: NITR0.4T42 SL (11:17)
[2023-07-26] MEDS: HYDROmorphone INJECTION 2 MG/ML VIAL IV PRN (11:18)
[2023-07-26 11:35] VITALS: BP 126/96
--- NOTE | 2023-07-26 16:37 | Progress Note - Cardiology ---
Cardiology SOAP Progress Note Subjective: Feels better this morning and wishes go back home Some gen weakness No focal weakness No cp (other than chronic, baseline discomfort that is always there) or palp or syncope or shortness of breath No n/v/d Objective: I&O/Vital Signs 07/26/23 07/26/23 07/26/23 07/26/23 07:00 07:20 08:00 11:35 Temp 35.7 35.6 Pulse 69 70 75 Resp 14 16 B/P (MAP) 105/60 (75) 126/96 (106) Pulse Ox 94 94 95 O2 Delivery Room Air Room Air Room Air 07/25/23 23:59 Intake Total 2852 ml Output Total 2400 ml Balance 452 ml Weight (Pounds): 189 Weight (Ounces): 0.0 Weight (Calculated Kilograms): 85.044491 Constitutional: AAO x 3, well-developed, well-nourished Respiratory: No accessory muscle use, No respiratory distress; chest expansion is symmetric, chest is bilaterally symmetric, rhonchi (scattered; prolonged exp phase) Cardiovascular: regular rate-rhythm; No JVD; S1 and S2 Gastrointestional: soft; No guarding; audible bowel sounds Extremities: no lower extremity edema bilateral Neurologic/Psychiatric: other (moves all extremities) Skin: No rash on exposed areas, No ulcerations on exposed areas Results/Procedures: Labs Laboratory Tests 07/25/23 20:23: Glucometer 154H 07/26/23 04:31: White Blood Count 6.1, Red Blood Count 3.89, Hemoglobin 12.0, Hematocrit 36, Mean Corpuscular Volume 91, Mean Corpuscular Hemoglobin 31, Mean Corpuscular Hemoglobin Concent 34, Red Cell Distribution Width 13.9, Platelet Count 240, Mean Platelet Volume 11.0, Immature Granulocyte % (Auto) 0, Neutrophils (%) (Auto) 51, Lymphocytes (%) (Auto) 36, Monocytes (%) (Auto) 9, Eosinophils (%) (Auto) 4, Basophils (%) (Auto) 1, Neutrophils # (Auto) 3.1, Lymphocytes # (Auto) 2.2, Monocytes # (Auto) 0.5, Eosinophils # (Auto) 0.3, Basophils # (Auto) 0.0, Immature Granulocyte # (Auto) 0.0, Sodium Level 135, Potassium Level 4.3, Chloride Level 104, Carbon Dioxide Level 23, Anion Gap 8, Blood Urea Nitrogen 13, Creatinine 1.17, Estimat Glomerular Filtration Rate 57, BUN/Creatinine Ratio 11, Glucose Level 185H, Calcium Level 8.7, Corrected Calcium 9.4, Total Bilirubin 0.7, Aspartate Amino Transf (AST/SGOT) 11, Alanine Aminotransferase (ALT/SGPT) 13, Alkaline Phosphatase 96, Total Protein 5.8L, Albumin 3.1L 07/26/23 10:54: Glucometer 236H Microbiology 07/24/23 Urine Culture - Preliminary, Resulted Escherichia coli Laboratory Tests 07/24/23 18:00 07/25/23 04:54 07/26/23 04:31 A/P: Assessment: Chest pain - no evidence of ACS at this time. Recent stress for same symptoms negative for ischemia (see below) CAD - H/o CABG in 2009. - Last MA on 04/23/20 due to mid-vessel, instent occlusion of RCA, treated with ballon angioplasty and stenting with Xience Radha 2.25x33 stent that was post- dilated to 3 mm kevin (Dr Bartlett). LAD had mild instent restenosis in prox LAD, LCX had patent stent, LVEDP 32 mmHg, preserved LV function, patent SVG to a diag, atretic LOPEZ to LAD. - MPI of 05-17-21: Inferior wall myocardial infarction with a small amount of ted-infarct ischemia. Inferior wall hypokinesis. Well preserved global left ventricular systolic function with ejection fraction of 54%. - Echo of 04/23/20: LVEF 55-60%, mild dil LA,mild to mod MR, PASP 25-30 mmHg - Card cath on 05/24/21: patent stents in the L cor system, occluded/atretic LOPEZ to LAD, patent SVG to an OM with 70% ostial stenosis that was successfully stented on 05/24/21 with Radha 2.5 x 18 mm stent (deployed at 20 [address]), midvessel instent occlusion of RCA and 90% proximal instent stenosis of RCA, prox RCA stenosis reduced to 50% with balloon angioplasty, distal RCA occlusion could not be opened up, LVEDP 17 mmHg - Cardiac cath of 08-15-[address] Jay Normal central aortic pressure with elevated left ventricular end-diastolic pressure. Patent stent in the mid left anterior descending coronary artery. Total occlusion of the mid right coronary artery within previously placed stents. This is known to be a chronic total occlusion. The left internal mammary artery graft to left anterior descending coronary artery is known to be atretic and was not studied during this procedure. Patent saphenous vein graft to the obtuse marginal branch with a patent stent in the ostium. - MPI of 06-11-[address] Christen Gustafson at [facility] in [place], [place] - Large fixed defect, inferior wall. Inferior wall ted-infarct reversible ischemia. Per Dr. Romero note medical tx advised with Ranexa being added at that time H/O left subclavian stent on 04-10-[address] Pino at [facility] in [place], [place] History of hiatal hernia noted on CT in January 2021, history of erosive esophagitis. - Continue on PPI Tobaccoism - cessation advised Hyperlipidemia - continue statin Diabetes mellitus BMI 36 Depression, anxiety Plan: Chest pain - no evidence of ACS - see recent cardiac w/u at [facility] (above) Continue home medications - including Ranexa, BB, Brilinta, ASA - previously on Isosorbide dinitrate 20mg TID - d/t somewhat low BP will hold for now (albeit asymptomatic) Outpt f/u advised Clinical Quality Measures AMI/AHF: ASA po Prior to arrival: No Smoking Cessation Counseling: Counseling-Symptomatic: 3-10 Minutes JIMENA ROBLES MD FACP FAC CCDS Jul 26, 2023 16:37
[2023-07-26] MEDS ORDERED: cefTRIAXone IV/IM 1,000 MG in NS (IVPB) 50 ML 50 ML IV SCH (20:00)
[2023-07-31] MEDS ORDERED: LIDO700A45 TP (18:55)
[2023-07-31] MEDS ORDERED: CYCL10TA25 PO (18:55)
[2023-07-31] MEDS ORDERED: ACET-2267 PO (18:55)
== END 2023-07-26 13:31 | disposition home or self-care (01) ==
LOC: EDUNIT# 17:53 → ER 17:57 → CSD 20:54 → UNDOADMOB 20:54 → CSD 22:19 → UNDODISOB 07-26 13:31
PROVIDERS: ADMIT Internal Medicine; ATTEND Internal Medicine
DX: I25.110 Atherosclerotic heart disease of native coronary artery with unstable angina pectoris (principal); E78.5 Hyperlipidemia, unspecified; E11.9 Type 2 diabetes mellitus without complications; I10 Essential (primary) hypertension; N39.0 Urinary tract infection, site not specified; E66.01 Morbid (severe) obesity due to excess calories; J44.9 Chronic obstructive pulmonary disease, unspecified; F32.A Depression, unspecified; F41.9 Anxiety disorder, unspecified; F17.210 Nicotine dependence, cigarettes, uncomplicated; Z95.1 Presence of aortocoronary bypass graft; Z95.5 Presence of coronary angioplasty implant and graft; Z79.82 Long term (current) use of aspirin; Z79.84 Long term (current) use of oral hypoglycemic drugs; Z79.02 Long term (current) use of antithrombotics/antiplatelets; Z79.4 Long term (current) use of insulin; Z79.899 Other long term (current) drug therapy; Z68.36 Body mass index [BMI] 36.0-36.9, adult
CPT/HCPCS: 36415; 71045; 80053; 80061; 80306; 80320; 81000; 82150; 82550; 82553; 82947; 83690; 83735; 83874; 83880; 84484; 85025; 85379; 85610; 85730; 87077; 87088; 87186; 90471; 90686; 93005; 93041; 94760; 94761; 96365; 96372; 96375; 96376